=== PATIENT | female | born 1950 | race Caucasian/White ===

== ENCOUNTER 2020-08-12 14:00 | Outpatient (REF) | payer MEDICARE, SELFPAY | END 2020-08-12 14:01 | disposition home or self-care (01) | LOC: HO.LNP 14:00 | PROVIDERS: Visit Provider Hospitalist | DX: N39.0 Urinary tract infection, site not specified (principal) | CPT/HCPCS: 87086 ==

== ENCOUNTER 2020-08-31 | Outpatient (REF) | payer MEDICARE, SELFPAY ==
[2020-09-01 12:39] LABS: Glucose Urine UA 100 MG/DL (NEG); Leukocyte Esterase Urine TRACE (NEG); Specific Gravity - Urine 1.025 (1.005-1.025); Urine Blood NEG (NEG); Urine Ketones NEG (NEG); Urine Protein 1+ MG/DL (NEG-TRACE)
[2020-09-01 12:40] LABS: Color Urine ORANGE
[2020-09-01 12:41] LABS: Appearance Urine HAZY
[2020-09-01 12:50] LABS: Calcium Oxalate Crystals Urine 2+ /LPF; Mucus Urine 1+ /LPF; RBC Urine 0 /HPF (0); Renal Epithelial Cells Urine 1+ /LPF; Squamous Epithelial Cell Urine 3+ /LPF
== END 2020-08-31 00:01 | disposition home or self-care (01) ==
LOC: HO.LNP
PROVIDERS: Visit Provider Nurse Practitioner Family
DX: Z13.9 Encounter for screening, unspecified (principal); N39.0 Urinary tract infection, site not specified
CPT/HCPCS: 81001; 87086; 87088; 87186

== ENCOUNTER 2020-09-07 18:32 | Emergency (ER) | payer MEDICARE, SELFPAY ==
[2020-09-07 18:44] VITALS: BP 143/72; PULSE 80; RESP 18; TEMP 36.6; O2SAT 97; BMI 31.3
[2020-09-07 20:17] LABS: Glucose Urine UA NEG (NEG); Leukocyte Esterase Urine TRACE (NEG); Nitrite Urine NEG (NEG); Specific Gravity - Urine 1.025 (1.005-1.025); Urine Blood NEG (NEG); Urine Ketones NEG (NEG); Urine Protein NEG (NEG-TRACE)
[2020-09-07 20:23] LABS: Appearance Urine CLEAR; Color Urine YELLOW
[2020-09-07 20:41] LABS: RBC Urine 0 /HPF (0); Squamous Epithelial Cell Urine TRACE /LPF
[2020-09-07] MEDS: Acetaminophen 325 MG TABLET 650 MG PO (20:53)
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
== END 2020-09-07 21:10 | disposition home or self-care (01) ==
PROVIDERS: Nurse Practitioner Primary Care; Emergency Provider Emergency Medicine; PCP Physician Assistant
DX: S00.03XA Contusion of scalp, initial encounter (principal); N39.0 Urinary tract infection, site not specified; I10 Essential (primary) hypertension; X58.XXXA Exposure to other specified factors, initial encounter; Y93.9 Activity, unspecified; Y92.9 Unspecified place or not applicable; Y99.9 Unspecified external cause status; Y04.8XXA Assault by other bodily force, initial encounter; Y92.410 Unspecified street and highway as the place of occurrence of the external cause; Z79.899 Other long term (current) drug therapy
CPT/HCPCS: 81001; 87086; 99283; 99284

== ENCOUNTER 2020-09-08 09:58 | Emergency (ER) | payer MEDICARE, SELFPAY ==
[2020-09-08 10:08] VITALS: BP 137/59; PULSE 69; RESP 16; TEMP 36.3; O2SAT 97; BMI 31.3
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
== END 2020-09-08 11:40 | disposition home or self-care (01) ==
PROVIDERS: Emergency Provider Emergency Medicine Emergency Medical Services
DX: S60.222A Contusion of left hand, initial encounter (principal); S00.03XA Contusion of scalp, initial encounter; G44.309 Post-traumatic headache, unspecified, not intractable; H92.02 Otalgia, left ear; M79.642 Pain in left hand; I10 Essential (primary) hypertension; Y04.8XXA Assault by other bodily force, initial encounter; Y93.9 Activity, unspecified; Y92.9 Unspecified place or not applicable; Y99.9 Unspecified external cause status; Z79.899 Other long term (current) drug therapy
CPT/HCPCS: 70450; 73120; 99283; 99284

== ENCOUNTER 2020-09-12 08:28 | Outpatient (REF) | payer MEDICARE, SELFPAY ==
[2020-09-14 11:35] LABS: BV Int Neg Control Negative (Negative); BV Int Pos Control Positive (Positive)
== END 2020-09-12 08:29 | disposition home or self-care (01) ==
LOC: HO.LAB 08:28
PROVIDERS: Visit Provider Nurse Practitioner Family
DX: Z13.9 Encounter for screening, unspecified (principal); R30.0 Dysuria; B37.3 Candidiasis of vulva and vagina
CPT/HCPCS: 87480; 87510; 87660

== ENCOUNTER 2020-09-13 11:06 | Outpatient (REF) | payer MEDICARE, SELFPAY | END 2020-09-13 11:07 | disposition home or self-care (01) | LOC: HO.LAB 11:06 | PROVIDERS: Visit Provider Nurse Practitioner Family | DX: Z13.89 Encounter for screening for other disorder (principal) ==

== ENCOUNTER 2020-09-27 10:36 | Outpatient (REF) | payer MEDICARE, SELFPAY ==
[2020-09-27 12:16] LABS: MANUAL DIFF FLAG NO
[2020-09-27 12:19] LABS: Basophils Percent Auto 0.4 % (0-2); Eosinophils Absolute Auto 0.6 X10*3/uL (0.0-0.4); Eosinophils Percent Auto 7.3 % (0-4); Hematocrit 35.5 % (37-47); Hemoglobin 11.2 g/dl (12.0-16.0); Imm Gran Abs Auto 0.03 X10*3/uL (0.00-0.03); Imm Gran Pct Auto 0.4 % (0.0-0.4); Lymphocytes Absolute Auto 2.5 X10*3/uL (1.2-4.9); Lymphocytes Percent Auto 32.5 % (20-40); Mean Corpuscular HGB Conc 31.5 g/dl (31.0-35.0); Mean Corpuscular Hemoglobin 27.1 pg (27.0-33.0); Mean Corpuscular Volume 85.7 fL (80-98); Mean Platelet Volume 10.9 fL (9.4-12.3); Monocytes Absolute Auto 0.4 X10*3/uL (0.1-1.2); Monocytes Percent Auto 5.2 % (2-11); Neutrophils Absolute Auto 4.2 X10*3/uL (2.0-8.3); Neutrophils Percent Auto 54.2 % (45-73); Platelet Count 202 X10*3/uL (160-400); Red Blood Count 4.14 X10*6/uL (4.20-5.50); Red Cell Distribution Width 13.9 % (11.0-16.0); White Blood Count 7.7 X10*3/uL (4.8-10.8)
[2020-09-27 12:52] LABS: Alanine Aminotransferase 10 U/L (0-31); Albumin Level 3.9 g/dL (3.5-5.0); Alkaline Phosphatase 61 U/L (39-117); Anion Gap 11 (12-20); Aspartate Amino Transferase 23 U/L (5-31); Bilirubin Total 0.4 mg/dL (0.0-1.0); Blood Urea Nitrogen 12 mg/dL (9-16); Carbon Dioxide 26 mmol/L (22-29); Chloride 108 mmol/L (96-108); Cholesterol 153 mg/dL; Estimated Glomerular Filt Rate > 60; Glucose Fasting 118 mg/dL (60-99); HDL Cholesterol 47 mg/dL; LDL Cholesterol Calculated 80 mg/dl; Potassium 4.4 mmol/l (3.3-5.1); Sodium 141 mmol/L (135-145); Total Protein 6.5 g/dL (6.5-8.0); Triglycerides 132 mg/dL
[2020-09-27 12:55] LABS: Estimated Average Glucose 157 mg/dL; Hemoglobin A1c % 7.1 %
[2020-09-27 13:13] LABS: TSH reflex Free T4 1.78 mIU/mL (0.32-4.0)
== END 2020-09-27 10:37 | disposition home or self-care (01) ==
LOC: HO.LAB 10:36
PROVIDERS: PCP Physician Assistant; Visit Provider Physician Assistant
DX: E11.9 Type 2 diabetes mellitus without complications (principal); E78.00 Pure hypercholesterolemia, unspecified; E78.5 Hyperlipidemia, unspecified; R30.0 Dysuria
CPT/HCPCS: 36415; 80053; 80061; 83036; 84443; 85025

== ENCOUNTER 2020-09-28 14:10 | Outpatient (REF) | payer MEDICARE, SELFPAY ==
[2020-09-28 14:22] LABS: Glucose Urine UA 100 MG/DL (NEG); Leukocyte Esterase Urine NEG (NEG); Specific Gravity - Urine 1.015 (1.005-1.025); Urine Blood NEG (NEG); Urine Ketones NEG (NEG); Urine Protein TRACE MG/DL (NEG-TRACE)
[2020-09-28 14:25] LABS: Appearance Urine HAZY; Color Urine ORANGE
[2020-09-28 14:43] LABS: RBC Urine 0 /HPF (0); Squamous Epithelial Cell Urine 1+ /LPF; WBC Urine 0 /HPF (0-4)
[2020-09-28 14:55] LABS: Creatinine Urine 68.37 mg/dL; Microalbum/Creatinine Ratio Ur 8.7 ug/mg cr
== END 2020-09-28 14:11 | disposition home or self-care (01) ==
LOC: HO.LNP 14:10
PROVIDERS: Visit Provider Physician Assistant
DX: E11.9 Type 2 diabetes mellitus without complications (principal)
CPT/HCPCS: 81003; 82043

== ENCOUNTER 2020-09-30 15:38 | Outpatient (REF) | payer MEDICARE, SELFPAY | END 2020-09-30 15:39 | disposition home or self-care (01) | LOC: HO.LNP 15:38 | PROVIDERS: Visit Provider Hospitalist | DX: R30.0 Dysuria (principal) | CPT/HCPCS: 87086; 87088; 87186 ==

== ENCOUNTER 2020-11-18 12:54 | Outpatient (REF) | payer MEDICARE, SELFPAY | END 2020-11-18 12:55 | disposition home or self-care (01) | LOC: HO.LAB 12:54 | PROVIDERS: Visit Provider Nurse Practitioner Family | DX: N39.0 Urinary tract infection, site not specified (principal) | CPT/HCPCS: 87086; 87088; 87186 ==

== ENCOUNTER 2020-11-22 12:45 | Emergency (ER) | payer MEDICARE, SELFPAY ==
--- NOTE | ~2020-11-22 | XR_ITS ---
EXAMINATION: XR CHEST CLINICAL INFORMATION: Lightheaded COMPARISON: None TECHNIQUE: Portable upright AP view of the chest was obtained. FINDINGS: The heart is within limits of normal size and similar to prior studies. The vascularity is normal. There is tapering at the cardiac apex and right cardiophrenic angle consistent with incidental areolar tissue. The lungs are clear. There is no airspace consolidation, vascular congestion, groundglass opacity, or effusion. The hilar and mediastinal contours are unremarkable. There are multilevel degenerative changes thoracic spine. XR/XR chest 1V IMPRESSION: No acute intrathoracic disease.
--- NOTE | ~2020-11-22 | CT_ITS ---
EXAMINATION: CT HEAD WITHOUT CONTRAST CLINICAL INFORMATION: Lightheadedness, dizziness and off balance COMPARISON: None TECHNIQUE: Contiguous axial imaging was performed from the skull base to vertex without intravenous administration of contrast. This CT examination was performed using dose optimization techniques as appropriate, variously including the following: *Automated exposure control *Adjustment of mA and/or kV according to patient size (this includes techniques or standardized protocols for targeted exams where dose is matched to indication/reason for exam; i.e. extremities or head) *Use of iterative reconstruction technique DLP: 611 mGy-cm FINDINGS: There is no evidence of acute intracranial hemorrhage or territorial infarction. No abnormal mass effect or midline shift is seen. Shine to white matter differentiation is well preserved. No extra-axial fluid collections are identified. The ventricles are normal in size. There is no abnormal attenuation within the brain parenchyma. The osseous structures and soft tissues are normal. The mastoid air cells and visualized portions of the paranasal sinuses are well aerated. CT/CT head/brain wo con IMPRESSION: No acute intracranial process seen.
[2020-11-22 12:54] VITALS: BP 198/85; PULSE 77; RESP 18; TEMP 36.6; O2SAT 98; BMI 30.8
--- NOTE | 2020-11-22 15:04 | ED.DIZZY ---
HPI - Dizziness General Chief Complaint: Dizziness Stated Complaint: LIGHT HEADNESS Time Seen by Provider: 11/22/20 15:03 Source: patient Mode of arrival: ambulatory History of Present Illness HPI Narrative: 70 y/o female with history of HTN, CAD, hx NSTEMI in 2015, hx SVT, hypothyroidism, carpal tunnel syndrome, recent UTI currently on Levaquin which is Culture sensitive, presenting to the ED complaining of generalized fatigue/weakness, feeling off balance, and mild head pressure since this morning. Admits sx have been improving since onset but wanted to get checked out. Also reports tingling in left arm, and nausea. Denies chest pain, shortness of breath, vomiting, diarrhea, abdominal pain, numbness, visual change/loss, flank pain, abdominal pain Related Data Home Medications Medication Instructions Recorded Confirmed estradiol 0.5 mg tablet 0.5 mg PO DAILY 08/12/20 09/30/20 flu vacc [id number](65yr up)-PF 240 ml IM 08/12/20 09/30/20 mcg/0.7 mL intramuscular syringe levothyroxine 50 mcg tablet 50 mcg PO QAM 08/12/20 09/30/20 lisinopril 2.5 mg tablet 2.5 mg PO DAILY 08/12/20 09/30/20 lorazepam 0.5 mg tablet 0.5 mg PO DAILY PRN 08/12/20 09/30/20 metformin 500 mg tablet,extended 1,000 mg PO BID 08/12/20 09/30/20 release 24 hr methocarbamol 500 mg tablet 500 mg PO BEDTIME 08/12/20 09/30/20 omeprazole 20 mg capsule,delayed 20 mg PO DAILY 08/12/20 09/30/20 release simvastatin 40 mg tablet 40 mg PO BEDTIME 08/12/20 09/30/20 triamcinolone acetonide 0.1 % applic TOPICAL DAILY 08/12/20 09/30/20 topical cream valacyclovir 1 gram tablet mg PO 08/12/20 09/30/20 tramadol 50 mg tablet 50 mg PO DAILY 10/20/20 Previous Rx's Medication Instructions Recorded amoxicillin 875 mg-potassium 1 tab PO BID 5 Days #10 tab 08/25/20 clavulanate 125 mg tablet nitrofurantoin 100 mg PO Q12H 7 Days #14 cap 11/18/20 monohydrate/macrocrystals 100 mg capsule glipizide 2.5 mg tablet, extended 2.5 mg PO DAILY #90 tab 09/12/20 release 24 hr levofloxacin 500 mg tablet 500 mg PO DAILY 3 Days #3 tab 09/12/20 naproxen 500 mg tablet 500 mg PO BID PRN #60 tab 09/12/20 atenolol 25 mg tablet 12.5 mg PO DAILY 30 Days #15 tab 09/14/20 clotrimazole 1 % vaginal cream 1 appful VAGINAL BEDTIME 7 Days 09/14/20 #45 g fluconazole 150 mg tablet 150 mg PO Q3D #2 tab 09/15/20 azithromycin 500 mg tablet 500 mg PO DAILY 3 Days #3 tab 09/30/20 fluconazole 150 mg tablet 150 mg PO DAILY 3 Days #3 tab 09/30/20 tramadol 50 mg tablet 50 mg PO DAILY PRN 10 Days #10 tab 10/20/20 levofloxacin 500 mg tablet 500 mg PO DAILY 5 Days #5 tab 10/24/20 levofloxacin 750 mg tablet 750 mg PO DAILY #5 tab 11/18/20 Allergies Allergy/AdvReac Type Severity Reaction Status Date / Time cefuroxime [From CEFTIN] Allergy Intermediate RASH Verified 09/30/20 11:57 doxycycline [DOXYCYCLINE] Allergy Unknown HIVES Verified 09/30/20 11:57 Sulfa (Sulfonamide Allergy Unknown rash Verified 09/30/20 11:57 Antibiotics) Celfain Allergy Unknown rash Uncoded 09/30/20 11:57 Review of Systems Review of Systems: Constitutional: No Weight loss, No Fever, No Chills, + Fatigue, No Malaise ENT/Mouth: No Hearing loss, No Ear Pain, No sore throat, No Rhinorrhea Eyes: No Eye Pain, No Swelling, No Vision Changes Cardiovascular: No Chest Pain, No SOB, No Edema, No Palpitations Respiratory: No Cough, No Sputum, No Wheezing Gastrointestinal: + Nausea, No Vomiting, No Diarrhea, No Constipation, No Abdominal pain Genitourinary: No Dysuria, No Urinary Frequency, No Hematuria, No Flank Pain Musculoskeletal: No joint pain, + Myalgias, No Joint Swelling Skin: No Skin Lesions, No rash Neuro: + Weakness, No Numbness, No Paresthesias, No Loss of Consciousness, +lightheadedness/ Dizziness,+ Headache Yes all other systems are reviewed and are negative Neurologic: Denies Abnormal speech present [facility] Past Medical History Attestation statement: The following information was validated with the patient. Medical History Cardiac arrhythmia Diabetes HTN (hypertension) Surgical History H/O: hysterectomy History of cardiac radiofrequency ablation Family History Family History Father CVD (cardiovascular disease) Mother No problems noted. Social History Social History Alcohol intake: never Smoking Status: Never smoker Use of substances other than those prescribed or required for medical reasons: No Advance Directives: No Advance Directives Information Provided: No Physical Exam Vital Signs: Vital Signs: Last Vital Signs Temp 98.1 F 11/22/20 18:29 Pulse 68 11/22/20 18:29 Resp 16 11/22/20 18:29 BP 136/69 11/22/20 18:29 Pulse Ox 95 11/22/20 18:29 Body Mass Index 30.8 Const: General: cooperative, healthy appearing, no acute distress and well developed Orientation/consciousness: patient oriented x3 Limitations: no limitations HENMT: Head: Yes normal to inspection Ears: hearing grossly normal bilaterally General nose exam: Normal external nose present Face and sinus: Yes normal facial exam Mouth: Normal oral and palatal mucosa present Eyes: General: appearance normal, both eyes and all related structures EOM: EOMs intact bilaterally Neck: Neck: Yes normal visual inspection, Yes no lymphadenopathy and Yes no meningeal signs Resp: Effort & Inspection: normal respiratory effort Auscultation: clear to auscultation bilaterally, no rales, no rhonchi and no wheezes Cardio: Rate: regular rate Heart sounds: S1 normal heart sound present and S2 normal heart sound present GI: Inspection: Yes normal to inspection Palpation (GI): Soft to palpation, nontender, no guarding and not rigid : General: Yes no CVA tenderness Back/Spine/Pelvis: Back: no CVA tenderness Skin: Rashes: no rashes Wounds: no wounds Neuro: General: patient oriented x3, gait normal, tone normal, moves all extremities, no meningeal signs, no focal motor deficits and CN's II-XI intact bilaterally Cognition (Neuro): normal cognition Speech: No Abnormal speech present Gait exam (Neuro): Normal gait present Motor exam (neuro): 5/5 motor strength present throughout and Pronator motor function not present Coordination: [id number] test normal and Romberg test negative Extrem: General: Yes normal to inspection Course Course Course Narrative: -labs including initial troponin negative. CXR unremarkable. Head CT unremarkable. -UA negative, orthostatic VS negative - 2009--repeat troponin equivocal, CT unlikely. Results discussed with patient including worrisome signs and symptoms and strict return precautions. Patient verbalized understanding of feel safe for discharge home to follow-up with PCP MDM - Dizziness MDM Narrative Medical decision making narrative: 70 y/o female with history of HTN, CAD, hx NSTEMI in 2015, hx SVT, hypothyroidism, carpal tunnel syndrome, recent UTI currently on Levaquin which is Culture sensitive, presenting to the ED complaining of generalized fatigue/weakness, feeling off balance, and mild head pressure since this morning. Also reports tingling in left arm, and nausea. On exam VSS, NAD, well appearing, no focal deficits, ambulating w/steady gait. Concern for metabolic abnls vs dehydation vs ACS. Low concern for TIA/CVA/CVT or PE. Low concern for continued UTI or pyelo or sepsis w/Levaquin Cx sensative Plan: EKG, labs, UA, CXR, Head CT, Orthoststics, Sx Tx, Reassess Lab Data Result diagrams: 11/22/20 15:59 11/22/20 15:58 Labs: Lab Results 11/22/20 11/22/20 11/22/20 Range/Units 15:51 15:58 15:58 WBC (4.8-10.8) X10*3/uL RBC (4.20-5.50) X10*6/uL Hgb (12.0-16.0) g/dl Hct (37-47) % MCV (80-98) fL MCH (27.0-33.0) pg MCHC (31.0-35.0) g/dl RDW (11.0-16.0) % Plt Count (160-400) X10*3/uL MPV (9.4-12.3) fL Immature Gran % (Auto) (0.0-0.4) % Neut % (Auto) (45-73) % Lymph % (Auto) (20-40) % Imperial % (Auto) (2-11) % Eos % (Auto) (0-4) % Baso % (Auto) (0-2) % Lymph # (Auto) (1.2-4.9) X10*3/uL Imperial # (Auto) (0.1-1.2) X10*3/uL Eos # (Auto) (0.0-0.4) X10*3/uL Baso # (Auto) (0.0-0.2) X10*3/uL Abs Immat Gran (auto) (0.00-0.03) X10*3/uL Absolute Neuts (auto) (2.0-8.3) X10*3/uL Absolute Nucleated RBC (0.0-0.012) X10*3/uL Nucleated RBC % (auto) (0.0-0.2) /100WBC PT (10.8-13.0) SEC INR (0.9-1.1) APTT (24.1-38.0) SEC Sodium 143 (135-145) mmol/L Potassium 4.1 (3.3-5.1) mmol/L Chloride 106 (96-108) mmol/L Carbon Dioxide 26 (22-29) mmol/L Anion Gap 15 (12-20) BUN 8 L (9-16) mg/dL Creatinine 0.87 (0.5-1.4) mg/dL Estim Creat Clear Calc 59.0 Estimated GFR > 60 Random Glucose 118 H (60-115) mg/dL Calcium 9.9 D (8.4-10.2) mg/dL Magnesium 2.1 (1.6-2.6) mg/dL Total Bilirubin 0.5 (0.0-1.0) mg/dL Direct Bilirubin 0.3 (0.0-0.5) mg/dL AST 27 (5-31) U/L ALT 14 (0-31) U/L Alkaline Phosphatase 59 (39-117) U/L Troponin I High Sens < 3.5 (<3.5-17.0) ng/L Total Protein 7.2 (6.5-8.0) g/dL Albumin 4.3 (3.5-5.0) g/dL TSH 1.75 (0.32-4.0) uIU/mL Urine Color YELLOW Urine Appearance CLEAR Urine pH 7.5 (5.0-8.0) Ur Specific Mobile 1.010 (1.005-1.025) Urine Protein NEG (NEG-TRACE) MG/DL Urine Glucose (UA) NEG (NEG) MG/DL Urine Ketones NEG (NEG) MG/DL Urine Blood NEG (NEG) Urine Nitrite NEG (NEG) Ur Leukocyte Esterase NEG (NEG) COVID-19 (ARVIN) (Negative) COVID-19 Clin Com 11/22/20 11/22/20 11/22/20 Range/Units 15:58 15:59 15:59 WBC 9.5 (4.8-10.8) X10*3/uL RBC 4.58 (4.20-5.50) X10*6/uL Hgb 12.4 (12.0-16.0) g/dl Hct 38.7 (37-47) % MCV 84.5 (80-98) fL MCH 27.1 (27.0-33.0) pg MCHC 32.0 (31.0-35.0) g/dl RDW 13.0 (11.0-16.0) % Plt Count 218 (160-400) X10*3/uL MPV 10.5 (9.4-12.3) fL Immature Gran % (Auto) 0.2 (0.0-0.4) % Neut % (Auto) 63.0 (45-73) % Lymph % (Auto) 28.2 (20-40) % Imperial % (Auto) 5.7 (2-11) % Eos % (Auto) 2.7 (0-4) % Baso % (Auto) 0.2 (0-2) % Lymph # (Auto) 2.7 (1.2-4.9) X10*3/uL Imperial # (Auto) 0.5 (0.1-1.2) X10*3/uL Eos # (Auto) 0.3 (0.0-0.4) X10*3/uL Baso # (Auto) 0.0 (0.0-0.2) X10*3/uL Abs Immat Gran (auto) 0.02 (0.00-0.03) X10*3/uL Absolute Neuts (auto) 6.0 (2.0-8.3) X10*3/uL Absolute Nucleated RBC 0.000 (0.0-0.012) X10*3/uL Nucleated RBC % (auto) 0.0 (0.0-0.2) /100WBC PT (10.8-13.0) SEC INR (0.9-1.1) APTT (24.1-38.0) SEC Sodium (135-145) mmol/L Potassium (3.3-5.1) mmol/L Chloride (96-108) mmol/L Carbon Dioxide (22-29) mmol/L Anion Gap (12-20) BUN (9-16) mg/dL Creatinine (0.5-1.4) mg/dL Estim Creat Clear Calc Estimated GFR Random Glucose (60-115) mg/dL Calcium (8.4-10.2) mg/dL Magnesium (1.6-2.6) mg/dL Total Bilirubin (0.0-1.0) mg/dL Direct Bilirubin (0.0-0.5) mg/dL AST (5-31) U/L ALT (0-31) U/L Alkaline Phosphatase (39-117) U/L Troponin I High Sens Cancelled (<3.5-17.0) ng/L Total Protein (6.5-8.0) g/dL Albumin (3.5-5.0) g/dL TSH (0.32-4.0) uIU/mL Urine Color Urine Appearance Urine pH (5.0-8.0) Ur Specific Mobile (1.005-1.025) Urine Protein (NEG-TRACE) MG/DL Urine Glucose (UA) (NEG) MG/DL Urine Ketones (NEG) MG/DL Urine Blood (NEG) Urine Nitrite (NEG) Ur Leukocyte Esterase (NEG) COVID-19 (ARVIN) Negative (Negative) COVID-19 Clin Com See Note 11/22/20 11/22/20 Range/Units 16:00 19:29 WBC (4.8-10.8) X10*3/uL RBC (4.20-5.50) X10*6/uL Hgb (12.0-16.0) g/dl Hct (37-47) % MCV (80-98) fL MCH (27.0-33.0) pg MCHC (31.0-35.0) g/dl RDW (11.0-16.0) % Plt Count (160-400) X10*3/uL MPV (9.4-12.3) fL Immature Gran % (Auto) (0.0-0.4) % Neut % (Auto) (45-73) % Lymph % (Auto) (20-40) % Imperial % (Auto) (2-11) % Eos % (Auto) (0-4) % Baso % (Auto) (0-2) % Lymph # (Auto) (1.2-4.9) X10*3/uL Imperial # (Auto) (0.1-1.2) X10*3/uL Eos # (Auto) (0.0-0.4) X10*3/uL Baso # (Auto) (0.0-0.2) X10*3/uL Abs Immat Gran (auto) (0.00-0.03) X10*3/uL Absolute Neuts (auto) (2.0-8.3) X10*3/uL Absolute Nucleated RBC (0.0-0.012) X10*3/uL Nucleated RBC % (auto) (0.0-0.2) /100WBC PT 14.8 H (10.8-13.0) SEC INR 1.2 H (0.9-1.1) APTT 40.6 H (24.1-38.0) SEC Sodium (135-145) mmol/L Potassium (3.3-5.1) mmol/L Chloride (96-108) mmol/L Carbon Dioxide (22-29) mmol/L Anion Gap (12-20) BUN (9-16) mg/dL Creatinine (0.5-1.4) mg/dL Estim Creat Clear Calc Estimated GFR Random Glucose (60-115) mg/dL Calcium (8.4-10.2) mg/dL Magnesium (1.6-2.6) mg/dL Total Bilirubin (0.0-1.0) mg/dL Direct Bilirubin (0.0-0.5) mg/dL AST (5-31) U/L ALT (0-31) U/L Alkaline Phosphatase (39-117) U/L Troponin I High Sens < 3.5 (<3.5-17.0) ng/L Total Protein (6.5-8.0) g/dL Albumin (3.5-5.0) g/dL TSH (0.32-4.0) uIU/mL Urine Color Urine Appearance Urine pH (5.0-8.0) Ur Specific Mobile (1.005-1.025) Urine Protein (NEG-TRACE) MG/DL Urine Glucose (UA) (NEG) MG/DL Urine Ketones (NEG) MG/DL Urine Blood (NEG) Urine Nitrite (NEG) Ur Leukocyte Esterase (NEG) COVID-19 (ARVIN) (Negative) COVID-19 Clin Com Discharge Plan Discharge Clinical Impression: Weakness, Headache Patient Disposition: Home, Self-Care Instructions: Weakness (ED) Additional Instructions: Your blood work and imaging studies were reassuring today in the ED Continue taking previously prescribed antibiotic until completion Follow-up with your primary care doctor Make sure you are staying hydrated at home If her symptoms persist or worsen, he developed chest pain, shortness of breath, constant worsening headache, feel off balance again return to the ED immediately Prescriptions: No Action amoxicillin-pot clavulanate [Augmentin] 875-125 mg tablet 1 tab PO BID 5 Days Qty: 10 RF: 0 glipizide 2.5 mg tablet extended release 24hr 2.5 mg PO DAILY Qty: 90 RF: 0 atenolol 25 mg tablet 12.5 mg PO DAILY 30 Days Qty: 15 RF: 3 clotrimazole 1 % cream 1 appful vaginal BEDTIME 7 Days Qty: 45 RF: 0 fluconazole [Diflucan] 150 mg tablet 150 mg PO Q3D Qty: 2 RF: 0 tramadol 50 mg tablet 50 mg PO DAILY RF: 0 tramadol 50 mg tablet 50 mg PO DAILY PRN (Reason: pain) 10 Days Qty: 10 RF: 1 levofloxacin 500 mg tablet 500 mg PO DAILY 5 Days Qty: 5 RF: 0 levofloxacin 750 mg tablet 750 mg PO DAILY Qty: 5 RF: 0 nitrofurantoin monohyd/m-cryst [Macrobid] 100 mg capsule 100 mg PO Q12H 7 Days Qty: 14 RF: 0 levofloxacin 500 mg tablet 500 mg PO DAILY 3 Days Qty: 3 RF: 0 naproxen 500 mg tablet 500 mg PO BID PRN (Reason: pain) Qty: 60 RF: 0 fluconazole 150 mg tablet 150 mg PO DAILY 3 Days Qty: 3 RF: 0 azithromycin 500 mg tablet 500 mg PO DAILY 3 Days Qty: 3 RF: 0 metformin 500 mg tablet extended release 24 hr 1,000 mg PO BID RF: 0 omeprazole 20 mg capsule,delayed release(DR/EC) 20 mg PO DAILY RF: 0 estradiol 0.5 mg tablet 0.5 mg PO DAILY RF: 0 levothyroxine 50 mcg tablet 50 mcg PO QAM RF: 0 Fluzone HighDose Quad 20-21 PF 240 mcg/0.7 mL syringe IM RF: 0 lorazepam 0.5 mg tablet 0.5 mg PO DAILY PRNRF: 0 triamcinolone acetonide 0.1 % cream topical DAILY RF: 0 methocarbamol 500 mg tablet 500 mg PO BEDTIME RF: 0 lisinopril 2.5 mg tablet 2.5 mg PO DAILY RF: 0 simvastatin 40 mg tablet 40 mg PO BEDTIME RF: 0 valacyclovir 1 gram tablet PO RF: 0 Referrals: Sammy Cordova PA-C [Primary Care Provider] - 2 days
[2020-11-22 15:16] VITALS: BP 175/82; PULSE 66; RESP 19; TEMP 36.6; O2SAT 96
--- NOTE | 2020-11-22 15:26 | ECG_ITS ---
Test Reason : HEDACHE Blood Pressure : / mmHG Vent. Rate : 061 BPM Atrial Rate : 061 BPM P-R Int : 182 ms QRS Dur : 080 ms QT Int : 422 ms P-R-T Axes : 053 032 041 degrees QTc Int : 424 ms Normal sinus rhythm Normal ECG When compared with ECG of 21-SEP-2015 16:22, No significant change was found Referred By: Samaria Stewart Electronically Signed By:ELY BENJAMIN
[2020-11-22 15:28] VITALS: BP 175/82; PULSE 65; RESP 18; TEMP 36.3; O2SAT 96
[2020-11-22 16:11] LABS: MANUAL DIFF FLAG NO
[2020-11-22 16:12] LABS: Basophils Percent Auto 0.2 % (0-2); Eosinophils Absolute Auto 0.3 X10*3/uL (0.0-0.4); Eosinophils Percent Auto 2.7 % (0-4); Hematocrit 38.7 % (37-47); Hemoglobin 12.4 g/dl (12.0-16.0); Imm Gran Abs Auto 0.02 X10*3/uL (0.00-0.03); Imm Gran Pct Auto 0.2 % (0.0-0.4); Lymphocytes Absolute Auto 2.7 X10*3/uL (1.2-4.9); Lymphocytes Percent Auto 28.2 % (20-40); Mean Corpuscular Hemoglobin 27.1 pg (27.0-33.0); Mean Corpuscular Volume 84.5 fL (80-98); Mean Platelet Volume 10.5 fL (9.4-12.3); Monocytes Absolute Auto 0.5 X10*3/uL (0.1-1.2); Monocytes Percent Auto 5.7 % (2-11); Platelet Count 218 X10*3/uL (160-400); Red Blood Count 4.58 X10*6/uL (4.20-5.50); White Blood Count 9.5 X10*3/uL (4.8-10.8)
[2020-11-22 16:15] LABS: Appearance Urine CLEAR; Color Urine YELLOW; Glucose Urine UA NEG (NEG); Leukocyte Esterase Urine NEG (NEG); Nitrite Urine NEG (NEG); PH 7.5 (5.0-8.0); Urine Blood NEG (NEG); Urine Ketones NEG (NEG); Urine Protein NEG (NEG-TRACE)
[2020-11-22 16:18] LABS: INTERNATIONAL NORM RATIO 1.2 (0.9-1.1); Prothrombin Time 14.8 SEC (10.8-13.0)
[2020-11-22 16:20] LABS: Partial Thromboplastin Time 40.6 SEC (24.1-38.0)
[2020-11-22 16:28] LABS: COVID-19 Test Negative (Negative)
[2020-11-22 16:36] LABS: Alanine Aminotransferase 14 U/L (0-31); Albumin Level 4.3 g/dL (3.5-5.0); Alkaline Phosphatase 59 U/L (39-117); Anion Gap 15 (12-20); Aspartate Amino Transferase 27 U/L (5-31); Bilirubin Direct 0.3 mg/dL (0.0-0.5); Bilirubin Total 0.5 mg/dL (0.0-1.0); Blood Urea Nitrogen 8 mg/dL (9-16); Calcium 9.9 mg/dL (8.4-10.2); Carbon Dioxide 26 mmol/L (22-29); Chloride 106 mmol/L (96-108); Estimated Glomerular Filt Rate > 60; Glucose Random 118 mg/dL (60-115); Magnesium 2.1 mg/dL (1.6-2.6); Potassium 4.1 mmol/L (3.3-5.1); Sodium 143 mmol/L (135-145); Total Protein 7.2 g/dL (6.5-8.0)
[2020-11-22 16:41] LABS: Troponin-I High Sensitivity < 3.5 ng/L (<3.5-17.0)
[2020-11-22] MEDS: 0.9 % Sodium Chloride 1,000 ML 999 ML IVCONT (16:44)
[2020-11-22] MEDS: Meclizine HCl 25 MG TABLET PO (16:44)
[2020-11-22 16:55] LABS: TSH reflex Free T4 1.75 uIU/mL (0.32-4.0)
[2020-11-22 17:02] VITALS: BP 148/62; PULSE 67; PULSE 68; RESP 18; TEMP 36.8; O2SAT 96
[2020-11-22 17:03] VITALS: BP 148/62; BP 184/100; PULSE 64; PULSE 68; RESP 18; TEMP 36.8; O2SAT 96
[2020-11-22] MEDS: LORazepam 0.5 MG TABLET PO (17:04)
[2020-11-22] MEDS: Acetaminophen 325 MG TABLET 650 MG PO (17:04)
[2020-11-22 18:29] VITALS: BP 136/69; PULSE 68; RESP 16; TEMP 36.7; O2SAT 95
[2020-11-22 20:06] LABS: Troponin-I High Sensitivity < 3.5 ng/L (<3.5-17.0)
== END 2020-11-22 20:59 | disposition home or self-care (01) ==
PROVIDERS: Physician Assistant; Emergency Provider Emergency Medicine; PCP Physician Assistant
DX: R42 Dizziness and giddiness (principal); R51.9 Headache, unspecified; Z79.01 Long term (current) use of anticoagulants; Z79.899 Other long term (current) drug therapy; Z20.822 Contact with and (suspected) exposure to COVID-19
CPT/HCPCS: 36415; 70450; 71045; 80048; 80076; 81003; 83735; 84443; 84484; 85025; 85610; 85730; 87635; 93005; 96360; 99284

== ENCOUNTER → 2020-11-30 10:41 | Outpatient (BNVA) | payer MEDICARE, SELFPAY | PROVIDERS: PCP Physician Assistant; Visit Provider Nurse Practitioner Family | DX: R07.9 Chest pain, unspecified (principal); E78.5 Hyperlipidemia, unspecified; E11.9 Type 2 diabetes mellitus without complications; I10 Essential (primary) hypertension; I49.9 Cardiac arrhythmia, unspecified | CPT/HCPCS: 99212 ==

== ENCOUNTER 2020-12-02 10:01 | Outpatient (REF) | payer MEDICARE, SELFPAY ==
[2020-12-02 10:39] LABS: Hematocrit 36.9 % (37-47); Hemoglobin 11.9 g/dl (12.0-16.0); Mean Corpuscular HGB Conc 32.2 g/dl (31.0-35.0); Mean Corpuscular Hemoglobin 26.9 pg (27.0-33.0); Mean Corpuscular Volume 83.5 fL (80-98); Mean Platelet Volume 10.4 fL (9.4-12.3); Platelet Count 223 X10*3/uL (160-400); Red Blood Count 4.42 X10*6/uL (4.20-5.50); Red Cell Distribution Width 12.7 % (11.0-16.0); White Blood Count 9.2 X10*3/uL (4.8-10.8)
[2020-12-02 10:59] LABS: Estimated Average Glucose 140 mg/dL; Hemoglobin A1c % 6.5 %
[2020-12-02 11:06] LABS: Alanine Aminotransferase 19 U/L (0-31); Alkaline Phosphatase 74 U/L (39-117); Anion Gap 12 (12-20); Aspartate Amino Transferase 26 U/L (5-31); Bilirubin Total 0.5 mg/dL (0.0-1.0); Blood Urea Nitrogen 11 mg/dL (9-16); Calcium 9.4 mg/dL (8.4-10.2); Carbon Dioxide 28 mmol/L (22-29); Chloride 101 mmol/L (96-108); Cholesterol 147 mg/dL; Estimated Glomerular Filt Rate > 60; Glucose Fasting 150 mg/dL (60-99); HDL Cholesterol 43 mg/dL; LDL Cholesterol Calculated 77 mg/dl; Potassium 4.7 mmol/L (3.3-5.1); Sodium 136 mmol/L (135-145); Total Protein 6.6 g/dL (6.5-8.0); Triglycerides 139 mg/dL
[2020-12-02 11:36] LABS: Glucose Urine UA NEG (NEG); Leukocyte Esterase Urine TRACE (NEG); Nitrite Urine NEG (NEG); Specific Gravity - Urine 1.015 (1.005-1.025); UACC Culture Trigger YES; Urine Blood NEG (NEG); Urine Ketones NEG (NEG); Urine Protein NEG (NEG-TRACE)
[2020-12-02 11:40] LABS: Appearance Urine CLEAR; Color Urine YELLOW
[2020-12-02 12:07] LABS: Bacteria Urine TRACE /LPF; RBC Urine 0-2 /HPF (0); Squamous Epithelial Cell Urine 1+ /LPF
== END 2020-12-02 10:02 | disposition home or self-care (01) ==
LOC: HO.LAB 10:01
PROVIDERS: PCP Physician Assistant; Visit Provider Physician Assistant
DX: I10 Essential (primary) hypertension (principal); E11.65 Type 2 diabetes mellitus with hyperglycemia; R30.0 Dysuria; N39.0 Urinary tract infection, site not specified
CPT/HCPCS: 36415; 80053; 80061; 81001; 81003; 83036; 85027; 87086

== ENCOUNTER 2020-12-12 | Outpatient (REF) | payer MEDICARE, SELFPAY | END 2020-12-12 00:01 | disposition home or self-care (01) | LOC: HO.LNP | PROVIDERS: Visit Provider Hospitalist | DX: R35.0 Frequency of micturition (principal) | CPT/HCPCS: 87086 ==

== ENCOUNTER 2020-12-12 13:02 | Outpatient (REF) | payer MEDICARE, SELFPAY | END 2020-12-12 13:03 | disposition home or self-care (01) | LOC: HO.HMGCLDS 13:02 | PROVIDERS: PCP Physician Assistant; Visit Provider Internal Medicine | DX: Z20.822 Contact with and (suspected) exposure to COVID-19 (principal) | CPT/HCPCS: 36415; C9803; U0003; U0005 ==

== ENCOUNTER 2020-12-18 13:14 | Emergency (ER) | payer MEDICARE, SELFPAY ==
[2020-12-18 13:31] VITALS: BP 126/71; PULSE 79; RESP 20; TEMP 36.9; O2SAT 100; BMI 30.1
--- NOTE | 2020-12-18 14:04 | ED.ALLEREA ---
HPI - Allergic Reaction General Chief complaint: Allergic Reaction Stated complaint: MEDICATION REACTION Time Seen by Provider: 12/18/20 13:45 Source: patient Mode of arrival: ambulatory Limitations: no limitations History of Present Illness HPI narrative: 70 y/o female with multiple medical comorbidities presenting to the ED from home with complaints of itchy red rash to her bilateral lower arms that started last night. She states it started about 1 hour after she took Augmentin that was prescribed 2 days earlier for UTI. She states the rash is red and slightly raised and started on her right wrist; it spead to her forarms and hands. It is very itchy. She was up all night due to the itching. She took Benadryl at 4am with minimal improvement. She also reports her breathing is a little coarse and she was wheezy earlier. Her eyes are watery and itchy. She denies swelling in her throat, mouth, lips. She is not SOB or having any chest pain. She is allergic to doxycycline but has never had a reaction to penicillins before. MD complaint: allergic reaction Onset (ago): hour(s) (16) Exposure: medication Known history of allergy to: hx doxy allergy Symptoms: rash and itching Severity: moderate Treatment prior to arrival: benadryl Previous Allergic Reaction History: none Related Data Home Medications Medication Instructions Recorded Confirmed estradiol 0.5 mg tablet 0.5 mg PO DAILY 08/12/20 12/12/20 flu vacc [id number](65yr up)-PF 240 ml IM 08/12/20 12/01/20 mcg/0.7 mL intramuscular syringe levothyroxine 50 mcg tablet 50 mcg PO QAM 08/12/20 12/12/20 lisinopril 2.5 mg tablet 2.5 mg PO DAILY 08/12/20 12/12/20 methocarbamol 500 mg tablet 500 mg PO BEDTIME 08/12/20 12/12/20 omeprazole 20 mg capsule,delayed 20 mg PO DAILY 08/12/20 12/12/20 release simvastatin 40 mg tablet 40 mg PO BEDTIME 08/12/20 12/12/20 triamcinolone acetonide 0.1 % applic TOPICAL DAILY 08/12/20 12/12/20 topical cream Previous Rx's Medication Instructions Recorded glipizide 2.5 mg tablet, extended 2.5 mg PO DAILY #90 tab 09/12/20 release 24 hr naproxen 500 mg tablet 500 mg PO BID PRN #60 tab 09/12/20 atenolol 25 mg tablet 12.5 mg PO DAILY 30 Days #15 tab 09/14/20 clotrimazole 1 % vaginal cream 1 appful VAGINAL BEDTIME 7 Days 09/14/20 #45 g lorazepam 0.5 mg tablet 0.5 mg PO DAILY PRN 30 Days #30 tab 11/24/20 fluconazole 150 mg tablet 150 mg PO DAILY 1 Days #1 tab 12/01/20 nitrofurantoin 100 mg PO Q12H 7 Days #14 cap 12/01/20 monohydrate/macrocrystals 100 mg capsule tramadol 50 mg tablet 50 mg PO DAILY PRN 10 Days #10 tab 12/01/20 metformin 500 mg tablet,extended 1,000 mg PO BID 30 Days #120 tab 12/09/20 release 24 hr amoxicillin 500 mg capsule 500 mg PO Q8H 5 Days #15 cap 12/12/20 lorazepam 0.5 mg tablet 0.5 mg PO DAILY PRN 30 Days #30 tab 12/12/20 amoxicillin 875 mg-potassium 1 tab PO BID 7 Days #14 tab 12/14/20 clavulanate 125 mg tablet hydrocortisone 1 appl TOPICAL TID PRN #28 g 12/18/20 levofloxacin 500 mg PO Q24H #2 tab 12/18/20 Allergies Allergy/AdvReac Type Severity Reaction Status Date / Time amoxicillin [From Augmentin] Allergy Intermediate rash Verified 12/18/20 15:34 cefuroxime [From CEFTIN] Allergy Intermediate RASH Verified 12/12/20 13:56 clavulanic acid Allergy Intermediate rash Verified 12/18/20 15:34 [From Augmentin] doxycycline [DOXYCYCLINE] Allergy Unknown HIVES Verified 12/12/20 13:56 Sulfa (Sulfonamide Allergy Unknown rash Verified 12/12/20 13:56 Antibiotics) Celfain Allergy Unknown rash Uncoded 12/12/20 13:56 Review of Systems Review of Systems: Constitutional: No Fever, No Chills ENT/Mouth: No sore throat, No Rhinorrhea, No Swallowing Difficulty Eyes: No Eye Pain, + Swelling, No Redness, +watery eyes Cardiovascular: No Chest Pain, No SOB Respiratory: No Cough, No Sputum, + Wheezing, No dyspnea Gastrointestinal: No Nausea, No Vomiting, No Diarrhea, No abdominal Pain Genitourinary: No Dysuria, No Urinary Frequency, No Hematuria Musculoskeletal: No joint pain, No Myalgias Skin: No Skin Lesions, + rash Psych: + Anxiety/Panic Heme/Lymph: No Bruising, No Lymphadenopathy PMFSH Past Medical History Attestation statement: The following information was validated with the patient. Medical History Cardiac arrhythmia Diabetes HTN (hypertension) Surgical History H/O: hysterectomy History of cardiac radiofrequency ablation Family History Family History Father CVD (cardiovascular disease) Mother No problems noted. Social History Social History Alcohol intake: never Smoking Status: Never smoker Use of substances other than those prescribed or required for medical reasons: No Advance Directives: No Advance Directives Information Provided: No Physical Exam Vital Signs: Vital Signs: Last Vital Signs Temp 98.5 F 12/18/20 13:31 Pulse 79 12/18/20 13:31 Resp 20 12/18/20 13:31 BP 126/71 12/18/20 13:31 Pulse Ox 100 12/18/20 13:31 Body Mass Index 30.1 Appearance: Alert. Oriented X3. No acute distress. HEENT: minor upper lid swelling of bilateral eyes, no scleral injection, PERRLA, EOMI. no discharge. normal posterior pharynx, uvula midline, normal voice, handling secretions normally. normal lips CVS: Normal heart rate and rhythm. Pulses normal. Respiratory: No respiratory distress. Lungs CTAB. No wheezing. Skin: Skin warm and dry. Normal skin color. Normal skin turgor. Erythematous, raised rash on bilateral forearms and dorsal hands Extremities: no LE edema Neuro: Oriented X 3. No motor deficit. No sensory deficit. Course Course Course Narrative: 70 y/o female presenting with allergic reaction that started last night after taking Augmentin - lungs are clear without airway involvement. She is on lisinopril but there is no evidence of angioedema. Will give dose of IV solumedrol, benadryl and pepcid and observe in the ER. Will stop Augmentin and repeat UA to see if still evidence of UTI. She is reporting some mild persistent dysuria. Reevaluation(s) Reevaluation #1: Patient is feeling much better after meds. UA is negative. Given she is still having dysuria will treat for 3 more days, changing therapy to Levaquin which she has tolerated well in the past. No plans to continue systemic steroids given her rash is localized and she is diabetic. She is stable for discharge and will follow up with her doctor this week. MDM - Allergic Reaction Lab Data Labs: Lab Results 12/18/20 Range/Units 14:53 Urine Color YELLOW Urine Appearance CLEAR Urine pH 5.5 (5.0-8.0) Ur Specific [place] 1.015 (1.005-1.025) Urine Protein NEG (NEG-TRACE) MG/DL Urine Glucose (UA) NEG (NEG) MG/DL Urine Ketones NEG (NEG) MG/DL Urine Blood NEG (NEG) Urine Nitrite NEG (NEG) Ur Leukocyte Esterase NEG (NEG) Discharge Plan Discharge Clinical Impression: Allergic reaction Qualifiers: Encounter type: initial encounter Qualified Code(s): T78.40XA - Allergy, unspecified, initial encounter Patient Disposition: Home, Self-Care Instructions: General Allergic Reaction (ED) Additional Instructions: STOP taking the amoxicillin-clavulanate (also known as Augmentin) START taking levofloxacin TOMORROW for your symptoms of UTI Use the prescribed topical steroid 2-3 times per day as needed for itching. Continue to take Benadryl 25-50 mg every six hours as needed for itching. Follow up with your doctor this week. If you have worsening symptoms come back to the ER for further evaluation. Prescriptions: New levofloxacin 500 mg tablet 500 mg PO Q24H Qty: 2 RF: 0 hydrocortisone 2.5 % cream 1 appl topical TID PRN (Reason: itching) Qty: 28 RF: 0 No Action glipizide 2.5 mg tablet extended release 24hr 2.5 mg PO DAILY Qty: 90 RF: 0 atenolol 25 mg tablet 12.5 mg PO DAILY 30 Days Qty: 15 RF: 3 clotrimazole 1 % cream 1 appful vaginal BEDTIME 7 Days Qty: 45 RF: 0 lorazepam 0.5 mg tablet 0.5 mg PO DAILY PRN (Reason: anxiety) 30 Days Qty: 30 RF: 2 metformin 500 mg tablet extended release 24 hr 1,000 mg PO BID 30 Days Qty: 120 RF: 4 amoxicillin 500 mg capsule 500 mg PO Q8H 5 Days Qty: 15 RF: 0 lorazepam 0.5 mg tablet 0.5 mg PO DAILY PRN (Reason: anxiety) 30 Days Qty: 30 RF: 0 amoxicillin-pot clavulanate [Augmentin] 875-125 mg tablet 1 tab PO BID 7 Days Qty: 14 RF: 0 naproxen 500 mg tablet 500 mg PO BID PRN (Reason: pain) Qty: 60 RF: 0 tramadol 50 mg tablet 50 mg PO DAILY PRN (Reason: pain) 10 Days Qty: 10 RF: 1 nitrofurantoin monohyd/m-cryst [Macrobid] 100 mg capsule 100 mg PO Q12H 7 Days Qty: 14 RF: 0 fluconazole 150 mg tablet 150 mg PO DAILY 1 Days Qty: 1 RF: 0 omeprazole 20 mg capsule,delayed release(DR/EC) 20 mg PO DAILY RF: 0 estradiol 0.5 mg tablet 0.5 mg PO DAILY RF: 0 levothyroxine 50 mcg tablet 50 mcg PO QAM RF: 0 Fluzone HighDose Quad 20-21 PF 240 mcg/0.7 mL syringe IM RF: 0 triamcinolone acetonide 0.1 % cream topical DAILY RF: 0 methocarbamol 500 mg tablet 500 mg PO BEDTIME RF: 0 lisinopril 2.5 mg tablet 2.5 mg PO DAILY RF: 0 simvastatin 40 mg tablet 40 mg PO BEDTIME RF: 0
[2020-12-18] MEDS: methylPREDNISolone Sod Succ/PF 125 MG/2 ML VIAL IVPUSH (14:07)
[2020-12-18] MEDS: Famotidine/PF 20 MG/2 ML VIAL IVPUSH (14:07)
[2020-12-18] MEDS: diphenhydrAMINE HCL 50 MG/ML VIAL 25 MG IVPUSH (14:07)
[2020-12-18 15:08] LABS: Glucose Urine UA NEG (NEG); Leukocyte Esterase Urine NEG (NEG); Nitrite Urine NEG (NEG); PH 5.5 (5.0-8.0); Specific Gravity - Urine 1.015 (1.005-1.025); Urine Blood NEG (NEG); Urine Ketones NEG (NEG); Urine Protein NEG (NEG-TRACE)
[2020-12-18 15:10] LABS: Appearance Urine CLEAR; Color Urine YELLOW
[2020-12-18] MEDS: levoFLOXacin 500 MG TABLET PO (15:27)
[2020-12-18] MEDS: Hydrocortisone 1 % Ointment 28.35 GM TUBE 1 APPL TOPICAL (15:41)
[2020-12-18 15:56] VITALS: PULSE 72; O2SAT 97
== END 2020-12-18 15:57 | disposition home or self-care (01) ==
PROVIDERS: Physician Assistant; Emergency Provider Emergency Medicine; PCP Physician Assistant
DX: L27.1 Localized skin eruption due to drugs and medicaments taken internally (principal); T36.0X5A Adverse effect of penicillins, initial encounter; Y92.019 Unspecified place in single-family (private) house as the place of occurrence of the external cause; N39.0 Urinary tract infection, site not specified; E11.9 Type 2 diabetes mellitus without complications; I10 Essential (primary) hypertension
CPT/HCPCS: 81003; 96374; 96375; 99284; J1200; J2930

== ENCOUNTER 2021-01-09 14:43 | Outpatient (REF) | payer MEDICARE, SELFPAY ==
--- NOTE | ~2021-01-09 | XR_ITS ---
EXAMINATION: XR RIBS, RIGHT CLINICAL INFORMATION: Pleurodynia COMPARISON: Previous chest x-ray November 2020 TECHNIQUE: 3 views of the right ribs and one view of the chest were obtained. FINDINGS: The cardiac and mediastinal contours are stable. There is a stable left pleural thickening and left apical calcification. The lungs are otherwise clear. There is no pleural effusion or pneumothorax. No rib fracture is seen. There are degenerative changes of the thoracic spine. XR/XR ribs RT min 3V w CXR1V IMPRESSION: No evidence for acute disease in the chest. No rib fracture seen. Degenerative changes of the thoracic spine.
== END 2021-01-09 14:44 | disposition home or self-care (01) ==
LOC: HO.HMGCX 14:43
PROVIDERS: PCP Physician Assistant; Visit Provider Nurse Practitioner Family
DX: R07.81 Pleurodynia (principal)
CPT/HCPCS: 71101

== ENCOUNTER 2021-01-11 13:23 | Outpatient (REF) | payer MEDICARE, SELFPAY | END 2021-01-11 13:24 | disposition home or self-care (01) | LOC: HO.US 13:23 | PROVIDERS: Visit Provider Physician Assistant | DX: Z13.89 Encounter for screening for other disorder (principal) ==

== ENCOUNTER 2021-01-12 09:40 | Outpatient (REF) | payer MEDICARE, SELFPAY ==
--- NOTE | ~2021-01-12 | US_ITS ---
EXAMINATION: US PELVIS LIMITED (BLADDER) CLINICAL INFORMATION: Urinary tract infection, site not specified. COMPARISON: Renal ultrasound 10/06/2018. TECHNIQUE: Real-time imaging of the bladder. FINDINGS: BLADDER: Partially distended. Bilateral ureteral jets are demonstrated. No filling defect. Prevoid bladder volume is 133 mL. Postvoid bladder volume is 7.5 mL. US/US bladder IMPRESSION: Normal appearance of the bladder. No wall thickening. Minimal postvoid residual volume.
== END 2021-01-12 09:41 | disposition home or self-care (01) ==
LOC: HO.US 09:40
PROVIDERS: PCP Physician Assistant; Visit Provider Physician Assistant
DX: N39.0 Urinary tract infection, site not specified (principal)
CPT/HCPCS: 76857

== ENCOUNTER 2021-01-13 00:37 | Emergency (ER) | payer MEDICARE, SELFPAY ==
--- NOTE | ~2021-01-13 | XR_ITS ---
EXAMINATION: LUMBOSACRAL SPINE 3 VIEWS CLINICAL INFORMATION: Pain after fall. COMPARISON: 11/18/2019. TECHNIQUE: AP, lateral, spot lateral views of the lumbosacral spine are provided. FINDINGS: There are no acute fractures. There is stable anterolisthesis of L4 in relation to L5. There is persistent disc height loss at L4/L5 and L5/S1. The remaining lumbar vertebra are in normal alignment. There is advanced facet arthropathy. XR/XR lumbar spine 2-3V IMPRESSION: Stable degenerative change without evidence of acute injury.
[2021-01-13 02:24] LABS: Glucose Urine UA NEG (NEG); Leukocyte Esterase Urine TRACE (NEG); Nitrite Urine POS (NEG); UACC Culture Trigger YES; Urine Blood NEG (NEG); Urine Ketones NEG (NEG); Urine Protein NEG (NEG-TRACE)
[2021-01-13 02:27] VITALS: BP 127/54; PULSE 81; RESP 18; TEMP 36.7; O2SAT 95; BMI 29.2
[2021-01-13 02:35] LABS: Appearance Urine HAZY; Color Urine YELLOW
[2021-01-13 02:37] LABS: Bacteria Urine 2+ /LPF; Mucus Urine 2+ /LPF; Squamous Epithelial Cell Urine 1+ /LPF
--- NOTE | 2021-01-13 02:58 | ED_ITS ---
HPI - Female Genitourinary General Chief complaint: Back Pain/Injury Stated complaint: UTI Time Seen by Provider: 01/13/21 02:56 Source: patient Mode of arrival: ambulatory Limitations: no limitations History of Present Illness HPI Narrative: . pt with History of recurrent UTI chronic low back pain just finished antibiotic 5 days ago complaining of low back pain and dysuria without significant frequency plan to see urologist next week, patient also complaining of low back pain fell few days ago MD elicited complaint: dysuria Related Data Home Medications Medication Instructions Recorded Confirmed estradiol 0.5 mg tablet 0.5 mg PO DAILY 08/12/20 12/29/20 flu vacc [id number](65yr up)-PF 240 ml IM 08/12/20 12/29/20 mcg/0.7 mL intramuscular syringe levothyroxine 50 mcg tablet 50 mcg PO QAM 08/12/20 12/29/20 lisinopril 2.5 mg tablet 2.5 mg PO DAILY 08/12/20 12/29/20 methocarbamol 500 mg tablet 500 mg PO BEDTIME 08/12/20 12/29/20 omeprazole 20 mg capsule,delayed 20 mg PO DAILY 08/12/20 12/29/20 release triamcinolone acetonide 0.1 % applic TOPICAL DAILY 08/12/20 12/29/20 topical cream Previous Rx's Medication Instructions Recorded glipizide 2.5 mg tablet, extended 2.5 mg PO DAILY #90 tab 09/12/20 release 24 hr naproxen 500 mg tablet 500 mg PO BID PRN #60 tab 09/12/20 atenolol 25 mg tablet 12.5 mg PO DAILY 30 Days #15 tab 09/14/20 clotrimazole 1 % vaginal cream 1 appful VAGINAL BEDTIME 7 Days 09/14/20 #45 g fluconazole 150 mg tablet 150 mg PO DAILY 1 Days #1 tab 12/01/20 nitrofurantoin 100 mg PO Q12H 7 Days #14 cap 12/01/20 monohydrate/macrocrystals 100 mg capsule tramadol 50 mg tablet 50 mg PO DAILY PRN 10 Days #10 tab 12/01/20 hydrocortisone 1 appl TOPICAL TID PRN #28 g 12/18/20 dexamethasone 4 mg tablet 4 mg PO .COMPLEX #18 tab 12/22/20 lorazepam 0.5 mg tablet 0.5 mg PO DAILY PRN 30 Days #30 tab 12/29/20 simvastatin 40 mg tablet 40 mg PO BEDTIME 90 Days #90 tab 01/02/21 levofloxacin 500 mg tablet 500 mg PO DAILY #5 tab 01/03/21 tramadol 50 mg tablet 50 mg PO DAILY PRN #10 tab 01/09/21 lorazepam 0.5 mg tablet 0.5 mg PO BEDTIME PRN #30 tab 01/11/21 metformin 500 mg tablet,extended 1,000 mg PO BID 30 Days #120 tab 01/11/21 release 24 hr acetaminophen-codeine 1 tab PO Q8H PRN #20 tab 01/13/21 lidocaine [Lidoderm] 1 patch TOPICAL DAILY #15 ea 01/13/21 Allergies Allergy/AdvReac Type Severity Reaction Status Date / Time amoxicillin [From Augmentin] Allergy Intermediate rash Verified 12/29/20 10:26 cefuroxime [From CEFTIN] Allergy Intermediate RASH Verified 12/29/20 10:26 clavulanic acid Allergy Intermediate rash Verified 12/29/20 10:26 [From Augmentin] doxycycline [DOXYCYCLINE] Allergy Unknown HIVES Verified 12/29/20 10:26 Sulfa (Sulfonamide Allergy Unknown rash Verified 12/29/20 10:26 Antibiotics) Celfain Allergy Unknown rash Uncoded 12/29/20 10:02 Review of Systems Review of Systems: Constitutional : No Weight loss, No Fever, No Chills ENT/Mouth : No sore throat, No Rhinorrhea Eyes: No Eye Pain, No Swelling Cardiovascular : No Chest Pain, no palpitations Respiratory : No Cough, No Sputum, no shortness of breath Gastrointestinal : no Nausea, No Vomiting, No Diarrhea, No abdominal Pain, no black stools Genitourinary : + Dysuria, No Urinary Frequency Musculoskeletal : No joint pain, No Myalgias, No Joint Swelling Skin : No Skin Lesions, No rash Neuro : No Weakness, No Numbness, No Dizziness, No Headache Psych : No Anxiety/Panic, No Depression Heme/Lymph: No Bruising, No Lymphadenopathy Endocrine : No Polyuria, No Polydipsia All other systems reviewed and are negative [facility] Past Medical History Medical History Cardiac arrhythmia Diabetes HTN (hypertension) Surgical History H/O: hysterectomy History of cardiac radiofrequency ablation Family History Family History Father CVD (cardiovascular disease) Mother No problems noted. Social History Social History Alcohol intake: never Smoking Status: Never smoker Smoked in Last 30 Days: No Advance Directives: No Advance Directives Information Provided: No Physical Exam Vital Signs: Vital Signs: Last Vital Signs Temp 98.1 F 01/13/21 02:27 Pulse 81 01/13/21 02:27 Resp 18 01/13/21 02:27 BP 127/54 L 01/13/21 02:27 Pulse Ox 95 01/13/21 02:27 Body Mass Index 29.2 Appearance: Alert. Oriented X3. No acute distress. Eyes: Pupils equal, round and reactive to light. ENT: Pharynx normal. Neck: Normal inspection. Neck supple. CVS: Normal heart rate and rhythm. Pulses normal. Respiratory: No respiratory distress. Breath sounds normal. Abdomen: Soft and nontender. Bowel sounds are present, no mass palpable, no CVA tenderness, diffuse lumbosacral tenderness no focal spinal tenderness patient ambulatory Skin: Skin warm and dry. Normal skin color. Normal skin turgor. Extremities: No lower extremity edema. Neuro: Oriented X 3. No motor deficit. No sensory deficit. MDM - Female Genitourinary MDM Narrative Medical decision making narrative: Patient with recurrent mild UTI with low back pain x-ray negative for any compression fracture will discharge her home on Macrobid patient supposed to follow with urologist Medical Records Attestation: I reviewed the patient's medical records. Lab Data Attestation: I reviewed the patient's lab results. Labs: Lab Results 01/13/21 Range/Units 02:15 Urine Color YELLOW Urine Appearance HAZY Urine pH 6.0 (5.0-8.0) Ur Specific [place] 1.010 (1.005-1.025) Urine Protein NEG (NEG-TRACE) MG/DL Urine Glucose (UA) NEG (NEG) MG/DL Urine Ketones NEG (NEG) MG/DL Urine Blood NEG (NEG) Urine Nitrite POS H (NEG) Ur Leukocyte Esterase TRACE H (NEG) Urine RBC 1-4 (0) /HPF Urine WBC 5-9 H (0-4) /HPF Ur Squamous Epith Cells 1+ /LPF Urine Bacteria 2+ /LPF Urine Mucus 2+ /LPF Urine Yeast 1+ /HPF Discharge Plan Discharge Clinical Impression: Recurrent UTI Patient Disposition: Home, Self-Care Instructions: Urinary Tract Infection in Women (ED), Chronic Back Pain (DC) Additional Instructions: Drink plenty of fluids take antibiotic as prescribed follow-up with urologist as scheduled Report to ER if worsening of pain high fever vomiting Prescriptions: New acetaminophen-codeine 300-30 mg tablet 1 tab PO Q8H PRN (Reason: pain) Qty: 20 RF: 0 lidocaine [Lidoderm] 5 % adhesive patch,medicated 1 patch topical DAILY Qty: 15 RF: 0 No Action glipizide 2.5 mg tablet extended release 24hr 2.5 mg PO DAILY Qty: 90 RF: 0 atenolol 25 mg tablet 12.5 mg PO DAILY 30 Days Qty: 15 RF: 3 clotrimazole 1 % cream 1 appful vaginal BEDTIME 7 Days Qty: 45 RF: 0 simvastatin 40 mg tablet 40 mg PO BEDTIME 90 Days Qty: 90 RF: 1 levofloxacin 500 mg tablet 500 mg PO DAILY Qty: 5 RF: 0 metformin 500 mg tablet extended release 24 hr 1,000 mg PO BID 30 Days Qty: 120 RF: 4 lorazepam 0.5 mg tablet 0.5 mg PO BEDTIME PRN (Reason: anxiety) Qty: 30 RF: 0 hydrocortisone 2.5 % cream 1 appl topical TID PRN (Reason: itching) Qty: 28 RF: 0 naproxen 500 mg tablet 500 mg PO BID PRN (Reason: pain) Qty: 60 RF: 0 tramadol 50 mg tablet 50 mg PO DAILY PRN (Reason: pain) 10 Days Qty: 10 RF: 1 nitrofurantoin monohyd/m-cryst [Macrobid] 100 mg capsule 100 mg PO Q12H 7 Days Qty: 14 RF: 0 fluconazole 150 mg tablet 150 mg PO DAILY 1 Days Qty: 1 RF: 0 tramadol 50 mg tablet 50 mg PO DAILY PRN (Reason: pain (scale score 7-10)) Qty: 10 RF: 0 omeprazole 20 mg capsule,delayed release(DR/EC) 20 mg PO DAILY RF: 0 estradiol 0.5 mg tablet 0.5 mg PO DAILY RF: 0 levothyroxine 50 mcg tablet 50 mcg PO QAM RF: 0 Fluzone HighDose Quad 20-21 PF 240 mcg/0.7 mL syringe IM RF: 0 triamcinolone acetonide 0.1 % cream topical DAILY RF: 0 methocarbamol 500 mg tablet 500 mg PO BEDTIME RF: 0 lisinopril 2.5 mg tablet 2.5 mg PO DAILY RF: 0 lorazepam 0.5 mg tablet 0.5 mg PO DAILY PRN (Reason: anxiety) 30 Days Qty: 30 RF: 1 dexamethasone [Decadron] 4 mg tablet 4 mg PO .COMPLEX Qty: 18 RF: 0
[2021-01-13] MEDS: Nitrofurantoin Monohyd/M-Cryst 100 MG CAPSULE PO (04:51)
[2021-01-13] MEDS: Lidocaine 4 % Patch ADH..PATCH 1 PATCH TRANSDERMA (04:52)
== END 2021-01-13 07:19 | disposition home or self-care (01) ==
PROVIDERS: Emergency Provider Internal Medicine; PCP Physician Assistant
DX: M54.5 Low back pain (principal); N39.0 Urinary tract infection, site not specified; Z87.440 Personal history of urinary (tract) infections; E11.9 Type 2 diabetes mellitus without complications; I10 Essential (primary) hypertension; Z79.84 Long term (current) use of oral hypoglycemic drugs; Z79.899 Other long term (current) drug therapy
CPT/HCPCS: 72100; 81001; 81003; 87086; 99283; 99284

== ENCOUNTER 2021-01-24 09:27 | Outpatient (REF) | payer MEDICARE, SELFPAY ==
--- NOTE | ~2021-01-24 | US_ITS ---
EXAMINATION: US RETROPERITONEAL LIMITED (RENAL ONLY) CLINICAL INFORMATION: Unspecified abdominal pain. COMPARISON: Ultrasound bladder 01/12/2021. Ultrasound renal with bladder 10/06/2018. TECHNIQUE: Real-time imaging of the kidneys. FINDINGS: RIGHT KIDNEY: 11.3 x 4.5 x 5.5 cm (SAG x AP x TRV). The kidney is normal in size, contour, and echogenicity. Renal cortical thickness is normal. No renal calculi or hydronephrosis. There is an anechoic cyst lower pole measuring 2.2 x 2.2 x 2.3 cm. LEFT KIDNEY: 10.8 x 5.2 x 5.0 cm (SAG x AP x TRV). The kidney is normal in size, contour, and echogenicity. Renal cortical thickness is normal. No renal calculi or hydronephrosis. There is an anechoic cyst in the lower pole measuring 2.7 x 1.9 x 2.6 cm. US/US renal BI IMPRESSION: Bilateral anechoic renal cysts. No echogenic stones or hydronephrosis. The findings are stable compared to 10/06/2018.
== END 2021-01-24 09:28 | disposition home or self-care (01) ==
LOC: HO.US 09:27
PROVIDERS: PCP Physician Assistant; Visit Provider Nurse Practitioner Family
DX: R10.9 Unspecified abdominal pain (principal)
CPT/HCPCS: 76775

== ENCOUNTER → 2021-02-08 14:50 | Outpatient (BNVA) | payer MEDICARE, SELFPAY | PROVIDERS: PCP Physician Assistant; Visit Provider Urology | DX: N39.0 Urinary tract infection, site not specified (principal) | CPT/HCPCS: 81002; 99212 ==

== ENCOUNTER 2021-03-23 11:57 | Outpatient (REF) | payer MEDICARE, SELFPAY | END 2021-03-23 11:58 | disposition home or self-care (01) | LOC: HO.LAB 11:57 | PROVIDERS: PCP Physician Assistant; Visit Provider Urology | DX: N39.0 Urinary tract infection, site not specified (principal) | CPT/HCPCS: 87086 ==

== ENCOUNTER 2021-04-01 09:09 | Emergency (ER) | payer MEDICARE, SELFPAY ==
--- NOTE | ~2021-04-01 | XR_ITS ---
EXAMINATION: PORTABLE CHEST 1 VIEW CLINICAL INFORMATION: cough . COMPARISON: 01/09/2021. TECHNIQUE: Portable frontal view of the chest was obtained. FINDINGS: The lungs are well expanded. Mild blunting the left costophrenic angle similar to the prior study without superimposed focal infiltrate, effusion, edema, or pneumothorax. Cardiac and mediastinal silhouettes are within normal limits for size with vascular calcification in the aorta. No acute bony abnormality seen. Degenerative changes in the spine and shoulders. XR/XR chest 1V IMPRESSION: Chronic appearing changes similar to the prior study. I do not appreciate any acute airspace disease.
--- NOTE | ~2021-04-01 | US_ITS ---
EXAMINATION: US VENOUS ULTRASOUND WITH DOPPLER LOWER EXTREMITY, BILATERAL CLINICAL INFORMATION: Pain COMPARISON: Previous left lower extremity venous ultrasound May 2014 TECHNIQUE: Ultrasound of the deep veins is performed from the hip to the calf with compression sonography and color and pulse Doppler assessment. Spectral analysis with color-flow imaging is performed. FINDINGS: RIGHT: There is normal venous compression and respiratory variation and augmented flow. The visualized common femoral vein, superficial femoral vein, profunda femoral vein, popliteal vein, and the trifurcation region shows no evidence of deep venous thrombosis. There is no significant popliteal fossa cyst. LEFT: There is normal venous compression and respiratory variation and augmented flow. The visualized common femoral vein, superficial femoral vein, profunda femoral vein, popliteal vein, and the trifurcation region shows no evidence of deep venous thrombosis. There is no significant popliteal fossa cyst. If the patient's symptoms persist, followup ultrasound in 5 days 7 days might be of value to exclude proximal propagation from a non-visualized calf vein. US/US venous duplex LE BI IMPRESSION: No DVT demonstrated in the bilateral lower extremity.
[2021-04-01 09:18] VITALS: BP 153/79; PULSE 74; RESP 16; TEMP 36.6; O2SAT 96; BMI 30.1
--- NOTE | 2021-04-01 09:24 | ED.GENADULT ---
HPI - General Adult General Chief complaint: General Medical Stated complaint: multiple complaints Time Seen by Provider: 04/01/21 09:12 Source: patient Mode of arrival: ambulatory Limitations: no limitations History of Present Illness HPI narrative: 70 yo female with hx of recurrent UTI started on macrobid yesterday by [employer] which seems to be helping and usually works for her, comes in with c/o a few days (prior to the medications) of cramps in both her legs, cough, runny nose, she is worried she couuld have blood clots and also wants an EKG jsut to be sure. MD complaint: cough, cramps in legs Onset (ago): day(s) (3) Severity: mild Quality: aching Pain Consistency: intermittent Relieving factors: none Exacerbating factors: none Associated symptoms: other (cough, runny nose, cramps in legs) Treatments prior to arrival: other (takes claritin and started herself on macrobid) Related Data Home Medications Medication Instructions Recorded Confirmed flu vacc [id number](65yr up)-PF 240 ml IM 08/12/20 02/28/21 mcg/0.7 mL intramuscular syringe levothyroxine 50 mcg tablet 50 mcg PO QAM 08/12/20 02/28/21 triamcinolone acetonide 0.1 % applic TOPICAL DAILY 08/12/20 02/28/21 topical cream nitrofurantoin 100 mg PO BID 01/18/21 02/28/21 monohydrate/macrocrystals 100 mg capsule latanoprost 0.005 % eye drops 1 drp OPHTHALMIC (EYE) BEDTIME 02/08/21 02/28/21 Previous Rx's Medication Instructions Recorded clotrimazole 1 % vaginal cream 1 appful VAGINAL BEDTIME 7 Days 09/14/20 #45 g nitrofurantoin 100 mg PO Q12H 7 Days #14 cap 12/01/20 monohydrate/macrocrystals 100 mg capsule hydrocortisone 1 appl TOPICAL TID PRN #28 g 12/18/20 simvastatin 40 mg tablet 40 mg PO BEDTIME 90 Days #90 tab 01/02/21 metformin 500 mg tablet,extended 1,000 mg PO BID 30 Days #120 tab 01/11/21 release 24 hr acetaminophen-codeine 1 tab PO Q8H PRN #20 tab 04/02/21 diclofenac sodium 1 % topical gel 2 g TOPICAL QID #100 g 01/18/21 omeprazole 20 mg capsule,delayed 20 mg PO DAILY #90 cap 02/26/21 release glipizide 2.5 mg tablet, extended 2.5 mg PO DAILY 30 Days #30 tab 02/28/21 release 24 hr lorazepam 0.5 mg tablet 0.5 mg PO BEDTIME PRN #30 tab 02/28/21 tramadol 50 mg tablet See Rx Instructions PO .COMPLEX 02/28/21 PRN 10 Days #30 tab lisinopril 2.5 mg tablet 2.5 mg PO DAILY #90 tab 03/09/21 estradiol See Rx Instructions .ROUTE DAILY 03/17/21 30 Days #42.5 g atenolol 25 mg tablet 12.5 mg PO DAILY #15 tab 03/20/21 estradiol 0.5 mg tablet 0.5 mg PO DAILY #90 tab 03/27/21 fluticasone propionate 1 spray INTRANASAL DAILY PRN #16 g 04/01/21 Allergies Allergy/AdvReac Type Severity Reaction Status Date / Time amoxicillin [From Augmentin] Allergy Intermediate rash Verified 02/28/21 12:21 cefuroxime [From CEFTIN] Allergy Intermediate RASH Verified 02/28/21 12:21 clavulanic acid Allergy Intermediate rash Verified 02/28/21 12:21 [From Augmentin] doxycycline [DOXYCYCLINE] Allergy Unknown HIVES Verified 02/28/21 12:21 Sulfa (Sulfonamide Allergy Unknown rash Verified 02/28/21 12:21 Antibiotics) Celfain Allergy Unknown rash Uncoded 12/29/20 10:02 Review of Systems Review of Systems: Constitutional : No Weight loss, No Fever, No Chills, No Fatigue, No Malaise ENT/Mouth : No sore throat, pos Rhinorrhea Eyes: No Eye Pain, No Swelling, No Redness Cardiovascular : No Chest Pain, No SOB, No Dyspnea on Exertion, No Orthopnea, No Edema, No Palpitations Respiratory : pos Cough, No Sputum, No Wheezing Gastrointestinal : No Nausea, No Vomiting, No Diarrhea, No Constipation, No abdominal Pain, No Hematochezia, No Melena Genitourinary : No Dysuria, No Urinary Frequency, No Hematuria, Musculoskeletal : No joint pain, pos Myalgias, No Joint Swelling Skin : No Skin Lesions, No rash Neuro : No Weakness, No Numbness, No Dizziness, No Headache Psych : No Anxiety/Panic, No Depression Heme/Lymph: No Bruising, No Bleeding,No Lymphadenopathy Endocrine : No Polyuria, No Polydipsia All other systems reviewed and are negative [facility] Past Medical History Medical History Cardiac arrhythmia Diabetes HTN (hypertension) Recurrent UTI Surgical History H/O: hysterectomy History of cardiac radiofrequency ablation Family History Family History Father CVD (cardiovascular disease) Mother No problems noted. Social History Social History (Updated 04/01/21 @ 09:52 by Arlyn Glynn DO) Alcohol intake: never Patient Tobacco Use Status: Former Tobacco user Smoked in Last 30 Days: No Use of substances other than those prescribed or required for medical reasons: No Advance Directives: No Advance Directives Information Provided: No Physical Exam Vital Signs: Vital Signs: Last Vital Signs Temp 97.9 F 04/01/21 09:18 Pulse 60 04/01/21 11:23 Resp 14 04/01/21 11:23 BP 140/67 H 04/01/21 11:23 Pulse Ox 97 04/01/21 11:23 Body Mass Index 30.1 Appearance: Alert. Oriented X3. No acute distress. Eyes: Pupils equal, round and reactive to light. ENT: Pharynx normal. TMs normal mild cerumen noted Neck: Normal inspection. Neck supple. CVS: Normal heart rate and rhythm. Pulses normal. Respiratory: No respiratory distress. Breath sounds normal. Abdomen: Soft and nontender. Skin: Skin warm and dry. Normal skin color. Normal skin turgor. Extremities: non-pitting edema noted around ankles. No calf ttp Neuro: Oriented X 3. No motor deficit. No sensory deficit. Course Course Course Narrative: no acute findings, stable for DC Medical Decision Making MDM Narrative Medical decision making narrative: 70 yo female with hx of recurrent UTI started on macrobid yesterday by [employer] which seems to be helping and usually works for her, comes in with c/o a few days (prior to the medications) of cramps in both her legs, cough, runny nose, she is worried she couuld have blood clots and also wants an EKG jsut to be sure. At this time no fevers, already COVID vaccinated x 2, CXR for pneumonia ordered, EKG given her concerns of arrhythmia, US to r/o DVT given pain and some edema noted, lytes - overall patient is not toxic but appears anxious Lab Data Result diagrams: 04/01/21 10:05 04/01/21 10:05 Labs: Lab Results 04/01/21 04/01/21 04/01/21 Range/Units 09:52 10:05 10:05 WBC 12.5 H (4.8-10.8) X10*3/uL RBC 3.86 L (4.20-5.50) X10*6/uL Hgb 10.9 L (12.0-16.0) g/dl Hct 32.2 L (37-47) % MCV 83.4 (80-98) fL MCH 28.2 (27.0-33.0) pg MCHC 33.9 (31.0-35.0) g/dl RDW 12.8 (11.0-16.0) % Plt Count 209 (160-400) X10*3/uL MPV 9.9 (9.4-12.3) fL Immature Gran % (Auto) 0.3 (0.0-0.4) % Neut % (Auto) 85.5 H (45-73) % Lymph % (Auto) 9.1 L (20-40) % [place] % (Auto) 4.4 (2-11) % Eos % (Auto) 0.5 (0-4) % Baso % (Auto) 0.2 (0-2) % Lymph # (Auto) 1.1 L (1.2-4.9) X10*3/uL [place] # (Auto) 0.6 (0.1-1.2) X10*3/uL Eos # (Auto) 0.1 (0.0-0.4) X10*3/uL Baso # (Auto) 0.0 (0.0-0.2) X10*3/uL Abs Immat Gran (auto) 0.04 H (0.00-0.03) X10*3/uL Absolute Neuts (auto) 10.7 H (2.0-8.3) X10*3/uL Absolute Nucleated RBC 0.000 (0.0-0.012) X10*3/uL Nucleated RBC % (auto) 0.0 (0.0-0.2) /100WBC Sodium 141 (135-145) mmol/L Potassium 4.5 (3.3-5.1) mmol/L Chloride 109 H (96-108) mmol/L Carbon Dioxide 22 (22-29) mmol/L Anion Gap 15 (12-20) BUN 8 L (9-16) mg/dL Creatinine 0.81 (0.5-1.4) mg/dL Estim Creat Clear Calc 62.6 Estimated GFR > 60 Random Glucose 170 H D (60-115) mg/dL Calcium 10.8 H D (8.4-10.2) mg/dL Magnesium 1.6 (1.6-2.6) mg/dL B-Natriuretic Peptide (<100) pg/mL COVID-19 (ARVIN) Negative (Negative) COVID-19 Clin Com See Note 04/01/21 Range/Units 10:05 WBC (4.8-10.8) X10*3/uL RBC (4.20-5.50) X10*6/uL Hgb (12.0-16.0) g/dl Hct (37-47) % MCV (80-98) fL MCH (27.0-33.0) pg MCHC (31.0-35.0) g/dl RDW (11.0-16.0) % Plt Count (160-400) X10*3/uL MPV (9.4-12.3) fL Immature Gran % (Auto) (0.0-0.4) % Neut % (Auto) (45-73) % Lymph % (Auto) (20-40) % [place] % (Auto) (2-11) % Eos % (Auto) (0-4) % Baso % (Auto) (0-2) % Lymph # (Auto) (1.2-4.9) X10*3/uL [place] # (Auto) (0.1-1.2) X10*3/uL Eos # (Auto) (0.0-0.4) X10*3/uL Baso # (Auto) (0.0-0.2) X10*3/uL Abs Immat Gran (auto) (0.00-0.03) X10*3/uL Absolute Neuts (auto) (2.0-8.3) X10*3/uL Absolute Nucleated RBC (0.0-0.012) X10*3/uL Nucleated RBC % (auto) (0.0-0.2) /100WBC Sodium (135-145) mmol/L Potassium (3.3-5.1) mmol/L Chloride (96-108) mmol/L Carbon Dioxide (22-29) mmol/L Anion Gap (12-20) BUN (9-16) mg/dL Creatinine (0.5-1.4) mg/dL Estim Creat Clear Calc Estimated GFR Random Glucose (60-115) mg/dL Calcium (8.4-10.2) mg/dL Magnesium (1.6-2.6) mg/dL B-Natriuretic Peptide 86 (<100) pg/mL COVID-19 (ARVIN) (Negative) COVID-19 Clin Com ECG Data Attestation: I personally reviewed and interpreted this ECG as follows: Interpretation: Rate: 65 Rhythm: NSR [place]: normal Normal P waves. Normal CLEM. Normal QRS complex. ST T wave : normal no MARY qTC: normal prior studies: no acute ischemia The study has been interpreted contemporaneously by me. . Discharge Plan Discharge Clinical Impression: Myalgia, Allergic rhinitis Patient Disposition: Home, Self-Care Instructions: Allergic Rhinitis (ED), Leg Cramps (ED) Additional Instructions: return to ED for any worsening symptoms or concerns NORMAL CHEST XRAY, NORMAL EKG, NO BLOOD CLOT ON ULTRASOUND YOUR CALCIUM WAS VERY MILDLY ELEVATED RECHECK WITH YOUR DOCTOR IN 1 WEEK Prescriptions: New fluticasone propionate 50 mcg/actuation spray,suspension 1 spray intranasal DAILY PRN (Reason: allergy symptoms) Qty: 16 RF: 0 No Action clotrimazole 1 % cream 1 appful vaginal BEDTIME 7 Days Qty: 45 RF: 0 simvastatin 40 mg tablet 40 mg PO BEDTIME 90 Days Qty: 90 RF: 1 metformin 500 mg tablet extended release 24 hr 1,000 mg PO BID 30 Days Qty: 120 RF: 4 omeprazole 20 mg capsule,delayed release(DR/EC) 20 mg PO DAILY Qty: 90 RF: 2 lisinopril 2.5 mg tablet 2.5 mg PO DAILY Qty: 90 RF: 2 estradiol 0.01 % (0.1 mg/gram) cream See Rx Instructions .Route DAILY 30 Days Qty: 42.5 RF: 2 atenolol 25 mg tablet 12.5 mg PO DAILY Qty: 15 RF: 3 estradiol 0.5 mg tablet 0.5 mg PO DAILY Qty: 90 RF: 0 hydrocortisone 2.5 % cream 1 appl topical TID PRN (Reason: itching) Qty: 28 RF: 0 acetaminophen-codeine 300-30 mg tablet 1 tab PO Q8H PRN (Reason: pain) Qty: 20 RF: 0 nitrofurantoin monohyd/m-cryst [Macrobid] 100 mg capsule 100 mg PO Q12H 7 Days Qty: 14 RF: 0 tramadol 50 mg tablet See Rx Instructions PO .COMPLEX PRN (Reason: pain (scale score 7-10)) 10 Days Qty: 30 RF: 0 lorazepam 0.5 mg tablet 0.5 mg PO BEDTIME PRN (Reason: anxiety) Qty: 30 RF: 2 glipizide 2.5 mg tablet extended release 24hr 2.5 mg PO DAILY 30 Days Qty: 30 RF: 0 nitrofurantoin monohyd/m-cryst 100 mg capsule 100 mg PO BID RF: 0 diclofenac sodium 1 % gel 2 g topical QID Qty: 100 RF: 0 levothyroxine 50 mcg tablet 50 mcg PO QAM RF: 0 Fluzone HighDose Quad 20-21 PF 240 mcg/0.7 mL syringe IM RF: 0 triamcinolone acetonide 0.1 % cream topical DAILY RF: 0 latanoprost 0.005 % drops 1 drp ophthalmic (eye) BEDTIME RF: 0 Referrals: Sammy Cordova PA-C [Primary Care Provider] - 3 days (if not better)
--- NOTE | 2021-04-01 09:31 | ECG_ITS ---
Test Reason : MED CLEARANCE Blood Pressure : / mmHG Vent. Rate : 065 BPM Atrial Rate : 065 BPM P-R Int : 184 ms QRS Dur : 078 ms QT Int : 410 ms P-R-T Axes : 036 040 047 degrees QTc Int : 426 ms Sinus rhythm with Premature atrial complexes Otherwise normal ECG When compared with ECG of 22-NOV-2020 15:33, Premature atrial complexes are now Present Referred By: Arlyn Glynn Electronically Signed By:ELY BENJAMIN
[2021-04-01 10:09] LABS: MANUAL DIFF FLAG NO
[2021-04-01 10:10] LABS: Basophils Percent Auto 0.2 % (0-2); Eosinophils Absolute Auto 0.1 X10*3/uL (0.0-0.4); Eosinophils Percent Auto 0.5 % (0-4); Hematocrit 32.2 % (37-47); Hemoglobin 10.9 g/dl (12.0-16.0); Imm Gran Abs Auto 0.04 X10*3/uL (0.00-0.03); Imm Gran Pct Auto 0.3 % (0.0-0.4); Lymphocytes Absolute Auto 1.1 X10*3/uL (1.2-4.9); Lymphocytes Percent Auto 9.1 % (20-40); Mean Corpuscular HGB Conc 33.9 g/dl (31.0-35.0); Mean Corpuscular Hemoglobin 28.2 pg (27.0-33.0); Mean Corpuscular Volume 83.4 fL (80-98); Mean Platelet Volume 9.9 fL (9.4-12.3); Monocytes Absolute Auto 0.6 X10*3/uL (0.1-1.2); Monocytes Percent Auto 4.4 % (2-11); Neutrophils Absolute Auto 10.7 X10*3/uL (2.0-8.3); Neutrophils Percent Auto 85.5 % (45-73); Platelet Count 209 X10*3/uL (160-400); Red Blood Count 3.86 X10*6/uL (4.20-5.50); Red Cell Distribution Width 12.8 % (11.0-16.0); White Blood Count 12.5 X10*3/uL (4.8-10.8)
[2021-04-01 10:14] LABS: COVID-19 Test Negative (Negative)
[2021-04-01 10:44] LABS: B Type Natriuretic Peptide 86 pg/mL (<100)
[2021-04-01 10:48] LABS: Anion Gap 15 (12-20); Blood Urea Nitrogen 8 mg/dL (9-16); Carbon Dioxide 22 mmol/L (22-29); Chloride 109 mmol/L (96-108); Creatinine Clr Calc Pharmacy 62.6; Estimated Glomerular Filt Rate > 60; Glucose Random 170 mg/dL (60-115); Magnesium 1.6 mg/dL (1.6-2.6); Potassium 4.5 mmol/L (3.3-5.1); Sodium 141 mmol/L (135-145)
[2021-04-01 10:57] LABS: Calcium 10.8 mg/dL (8.4-10.2)
[2021-04-01 11:23] VITALS: BP 140/67; PULSE 60; RESP 14; O2SAT 97
== END 2021-04-01 12:11 | disposition home or self-care (01) ==
PROVIDERS: Emergency Provider Emergency Medicine; PCP Physician Assistant
DX: J30.9 Allergic rhinitis, unspecified (principal); M79.10 Myalgia, unspecified site; N39.0 Urinary tract infection, site not specified; M79.605 Pain in left leg; M79.604 Pain in right leg; R25.2 Cramp and spasm; I10 Essential (primary) hypertension; E11.9 Type 2 diabetes mellitus without complications; Z79.84 Long term (current) use of oral hypoglycemic drugs; Z79.899 Other long term (current) drug therapy; Z20.822 Contact with and (suspected) exposure to COVID-19
CPT/HCPCS: 36415; 71045; 80048; 83735; 83880; 85025; 87635; 93005; 93970; 99284

== ENCOUNTER 2021-04-14 17:17 | Outpatient (REF) | payer MEDICARE, SELFPAY | END 2021-04-14 17:18 | disposition home or self-care (01) | LOC: HO.LNP 17:17 | PROVIDERS: Visit Provider Nurse Practitioner Family | DX: N39.0 Urinary tract infection, site not specified (principal) | CPT/HCPCS: 87086 ==

== ENCOUNTER 2021-05-06 13:04 | Outpatient (REF) | payer MEDICARE, SELFPAY | END 2021-05-06 13:05 | disposition home or self-care (01) | LOC: HO.LAB 13:04 | PROVIDERS: Visit Provider Nurse Practitioner Family | DX: N39.0 Urinary tract infection, site not specified (principal) | CPT/HCPCS: 87086 ==

== ENCOUNTER 2021-05-23 10:59 | Outpatient (REF) | payer MEDICARE, SELFPAY ==
[2021-05-23 11:52] LABS: Hematocrit 33.3 % (37-47); Hemoglobin 10.7 g/dl (12.0-16.0); Mean Corpuscular HGB Conc 32.1 g/dl (31.0-35.0); Mean Corpuscular Hemoglobin 27.1 pg (27.0-33.0); Mean Corpuscular Volume 84.3 fL (80-98); Mean Platelet Volume 10.4 fL (9.4-12.3); Platelet Count 191 X10*3/uL (160-400); Red Blood Count 3.95 X10*6/uL (4.20-5.50); Red Cell Distribution Width 13.1 % (11.0-16.0); White Blood Count 6.9 X10*3/uL (4.8-10.8)
[2021-05-23 12:28] LABS: TSH reflex Free T4 1.11 uIU/mL (0.32-4.0)
[2021-05-23 12:29] LABS: Glucose Urine UA NEG (NEG); Leukocyte Esterase Urine 1+ (NEG); Nitrite Urine NEG (NEG); Specific Gravity - Urine 1.015 (1.005-1.025); UACC Culture Trigger YES; Urine Blood NEG (NEG); Urine Ketones NEG (NEG); Urine Protein NEG (NEG-TRACE)
[2021-05-23 12:31] LABS: Appearance Urine HAZY; Color Urine YELLOW
[2021-05-23 13:10] LABS: Alanine Aminotransferase 12 U/L (0-31); Alkaline Phosphatase 53 U/L (39-117); Anion Gap 12 (12-20); Aspartate Amino Transferase 16 U/L (5-31); Bilirubin Total 0.4 mg/dL (0.0-1.0); Blood Urea Nitrogen 9 mg/dL (9-16); Calcium 9.6 mg/dL (8.4-10.2); Carbon Dioxide 27 mmol/L (22-29); Chloride 111 mmol/L (96-108); Cholesterol 141 mg/dL; Estimated Glomerular Filt Rate > 60; Glucose Fasting 118 mg/dL (60-99); HDL Cholesterol 46 mg/dL; LDL Cholesterol Calculated 71 mg/dl; Potassium 4.9 mmol/L (3.3-5.1); Sodium 145 mmol/L (135-145); Total Protein 6.2 g/dL (6.5-8.0); Triglycerides 121 mg/dL
[2021-05-23 13:16] LABS: RBC Urine 0-2 /HPF (0); Squamous Epithelial Cell Urine 1+ /LPF
== END 2021-05-23 11:00 | disposition home or self-care (01) ==
LOC: HO.LAB 10:59
PROVIDERS: Absent Provider Internal Medicine; PCP Physician Assistant; Visit Provider Physician Assistant
DX: E11.65 Type 2 diabetes mellitus with hyperglycemia (principal); I10 Essential (primary) hypertension
CPT/HCPCS: 36415; 80053; 80061; 81001; 84443; 85027; 87086

== ENCOUNTER 2021-05-27 17:07 | Emergency (ER) | payer MEDICARE, SELFPAY ==
[2021-05-27 17:28] VITALS: BP 113/60; PULSE 74; RESP 16; TEMP 36.9; O2SAT 95; BMI 30.1
--- NOTE | 2021-05-27 18:06 | ED.GENADULT ---
HPI - General Adult General Chief complaint: Back Pain/Injury <DEDE Romero - Last Filed: 05/27/21 19:14> Stated complaint: Sciatica <DEDE Romero - Last Filed: 05/27/21 19:14> Time Seen by Provider: 05/27/21 17:37 <DEDE Romero - Last Filed: 05/27/21 19:14> History of Present Illness HPI narrative: Patient complains of feeling some swelling behind her left knee which hurts a little bit as well as bilateral sciatica which is common for her and she feels like her sciatica is flaring a little bit, but is otherwise similar to her chronic sciatica back pain There is no weakness no incontinence no fever no chills no changes to bowel or bladder no difficulty breathing no shortness of breath no chest pain <DEDE Romero - Last Filed: 05/27/21 19:14> Related Data Home medications: Home Medications Medication Instructions Recorded Confirmed flu vacc [id number](65yr up)-PF 240 ml IM 08/12/20 04/14/21 mcg/0.7 mL intramuscular syringe levothyroxine 50 mcg tablet 50 mcg PO QAM 08/12/20 04/14/21 triamcinolone acetonide 0.1 % applic TOPICAL DAILY 08/12/20 04/14/21 topical cream latanoprost 0.005 % eye drops 1 drp OPHTHALMIC (EYE) BEDTIME 02/08/21 04/14/21 Previous Rx's Medication Instructions Recorded hydrocortisone 2.5 % topical cream 1 appl TOPICAL TID PRN #28 g 12/18/20 simvastatin 40 mg tablet 40 mg PO BEDTIME 90 Days #90 tab 01/02/21 metformin 500 mg tablet,extended 1,000 mg PO BID 30 Days #120 tab 01/11/21 release 24 hr diclofenac sodium 1 % topical gel 2 g TOPICAL QID #100 g 01/18/21 omeprazole 20 mg capsule,delayed 20 mg PO DAILY #90 cap 02/26/21 release lorazepam 0.5 mg tablet 0.5 mg PO BEDTIME PRN #30 tab 02/28/21 lisinopril 2.5 mg tablet 2.5 mg PO DAILY #90 tab 03/09/21 estradiol See Rx Instructions .ROUTE DAILY 03/17/21 30 Days #42.5 g estradiol 0.5 mg tablet 0.5 mg PO DAILY #90 tab 03/27/21 fluticasone propionate 50 1 spray INTRANASAL DAILY PRN #16 g 04/01/21 mcg/actuation nasal spray,suspension atenolol 25 mg tablet 12.5 mg PO DAILY #15 tab 04/14/21 clotrimazole 1 % vaginal cream 1 appful VAGINAL BEDTIME 7 Days 04/14/21 #45 g levofloxacin 750 mg tablet 750 mg PO DAILY #3 tab 05/06/21 tramadol 50 mg tablet See Rx Instructions PO .COMPLEX 05/08/21 PRN 10 Days #30 tab azithromycin 250 mg tablet See Rx Instructions PO .COMPLEX #6 05/24/21 tab glipizide 2.5 mg tablet, extended 2.5 mg PO DAILY #30 tab 05/24/21 release 24 hr cyclobenzaprine 5 mg tablet 5 mg PO TID PRN #14 tab 05/27/21 <DEDE Romero Last Filed: 05/27/21 19:14> Allergies/adverse reactions: Allergies Allergy/AdvReac Type Severity Reaction Status Date / Time amoxicillin [From Augmentin] Allergy Intermediate rash Verified 05/27/21 17:33 cefuroxime [From CEFTIN] Allergy Intermediate RASH Verified 05/27/21 17:33 clavulanic acid Allergy Intermediate rash Verified 05/27/21 17:33 [From Augmentin] doxycycline [DOXYCYCLINE] Allergy Unknown HIVES Verified 05/27/21 17:33 Sulfa (Sulfonamide Allergy Unknown rash Verified 05/27/21 17:33 Antibiotics) Celfain Allergy Unknown rash Uncoded 05/27/21 17:33 <DEDE Romero - Last Filed: 05/27/21 19:14> Review of Systems Review of Systems: Positive for painful swelling behind the left knee as well as a flare-up of chronic back pain Negatives are no fever no chills no dizziness no weakness no fainting no feeling faint no headache no neck pain no chest pain no shortness of breath no changes to bowel or bladder no incontinence no dysuria no frequency no skin rash no weakness no loss of sensation <DEDE Romero Last Filed: 05/27/21 19:14> PMFSH Past Medical History Source: nursing notes reviewed <DEDE Romero Last Filed: 05/27/21 19:14> Medical History: Medical History Cardiac arrhythmia Diabetes HTN (hypertension) Recurrent UTI <DEDE Romero - Last Filed: 05/27/21 19:14> Surgical History: Surgical History H/O: hysterectomy History of cardiac radiofrequency ablation <DEDE Romero - Last Filed: 05/27/21 19:14> Family History Family History: Family History Father CVD (cardiovascular disease) Mother No problems noted. <DEDE Romero - Last Filed: 05/27/21 19:14> Social History Social History: Social History Housing: House Alcohol intake: current Alcohol intake frequency: holidays/special occasions only Alcohol type: beer and wine Patient Tobacco Use Status: Former Tobacco user e-Cigarette/Vaping Use: Never Used Second Hand Smoke Exposure: Yes Advance Directives: No Advance Directives Information Provided: Yes service: No Current occupational status: retired <DEDE Romero - Last Filed: 05/27/21 19:14> Physical Exam Vital Signs: Vital Signs: Last Vital Signs Temp 98.5 F 05/27/21 17:28 Pulse 74 05/27/21 17:28 Resp 16 05/27/21 17:28 BP 113/60 05/27/21 17:28 Pulse Ox 95 05/27/21 17:28 Body Mass Index 30.1 <DEDE Romero - Last Filed: 05/27/21 19:14> Vital Signs: Last Vital Signs Temp 98.5 F 05/27/21 17:28 Pulse 74 05/27/21 17:28 Resp 16 05/27/21 17:28 BP 113/60 05/27/21 17:28 Pulse Ox 95 05/27/21 17:28 Body Mass Index 30.1 <Carlos Rosales NP - Last Filed: 05/27/21 19:44> General appearance no acute distress Head is normocephalic atraumatic Neck is supple Chest clear to auscultation bilateral The heart no murmur the abdomen soft nontender the back had lower lumbar bilateral tenderness, range of motion was good there is no focal bony tenderness there were no rashes no redness no wounds, no CVA tenderness The extremities the left lower leg had popliteal tenderness with a small area of swelling which could be a swollen vein, it was not red warm or tender there were no wounds no rashes, no edema and neurovascular intact distal Skin no rashes Neuro no gross motor or sensory deficit <DEDE Romero - Last Filed: 05/27/21 19:14> Course Course Course Narrative: Patient with popliteal pain and mild swelling was entered for an ultrasound but then we found out we do not have ultrasound available on the weekend so a D-dimer was ordered and if negative patient will be discharged home, if positive patient will be anticoagulated in return Saturday for ultrasound At 19:00 the case was signed out to physician physician assistant certified Bobby to follow lab results and dispo patient <DEDE Romero - Last Filed: 05/27/21 19:14> Reevaluation(s) Reevaluation #1: History of chronic pain in this region specifically sciatic nerve there is some mild popliteal pain there is small nodule consistent with lipoma otherwise no concerning symptoms for acute lower extremity infection, vascular disease or DVT. Homans negative. Furthermore D-dimer done this was negative. Will discharge home with supportive care, follow-up and return instructions. <Carlos Rosales NP - Last Filed: 05/27/21 19:44> Medical Decision Making Lab Data Result diagrams: : 05/27/21 18:54 05/27/21 18:54 <DEDE Romero - Last Filed: 05/27/21 19:14> Labs: Lab Results 05/27/21 05/27/21 05/27/21 Range/Units 18:54 18:54 18:54 WBC 8.4 (4.8-10.8) X10*3/uL RBC 4.08 L (4.20-5.50) X10*6/uL Hgb 11.1 L (12.0-16.0) g/dl Hct 34.0 L (37-47) % MCV 83.3 (80-98) fL MCH 27.2 (27.0-33.0) pg MCHC 32.6 (31.0-35.0) g/dl RDW 13.2 (11.0-16.0) % Plt Count 216 (160-400) X10*3/uL MPV 10.1 (9.4-12.3) fL Immature Gran % (Auto) 0.2 (0.0-0.4) % Neut % (Auto) 52.8 (45-73) % Lymph % (Auto) 35.1 (20-40) % Orange % (Auto) 6.7 (2-11) % Eos % (Auto) 5.0 H (0-4) % Baso % (Auto) 0.2 (0-2) % Lymph # (Auto) 3.0 (1.2-4.9) X10*3/uL Orange # (Auto) 0.6 (0.1-1.2) X10*3/uL Eos # (Auto) 0.4 (0.0-0.4) X10*3/uL Baso # (Auto) 0.0 (0.0-0.2) X10*3/uL Abs Immat Gran (auto) 0.02 (0.00-0.03) X10*3/uL Absolute Neuts (auto) 4.4 (2.0-8.3) X10*3/uL Absolute Nucleated RBC 0.000 (0.0-0.012) X10*3/uL Nucleated RBC % (auto) 0.0 (0.0-0.2) /100WBC D-Dimer < 200 NG/ML Sodium 143 (135-145) mmol/L Potassium 4.4 (3.3-5.1) mmol/L Chloride 110 H (96-108) mmol/L Carbon Dioxide 25 (22-29) mmol/L Anion Gap 12 (12-20) BUN 11 (9-16) mg/dL Creatinine 0.89 (0.5-1.4) mg/dL Estim Creat Clear Calc 57.0 Estimated GFR > 60 Random Glucose 110 D (60-115) mg/dL Calcium 9.7 (8.4-10.2) mg/dL <DEDE Romero - Last Filed: 05/27/21 19:14> Lab Results 05/27/21 05/27/21 05/27/21 Range/Units 18:54 18:54 18:54 WBC 8.4 (4.8-10.8) X10*3/uL RBC 4.08 L (4.20-5.50) X10*6/uL Hgb 11.1 L (12.0-16.0) g/dl Hct 34.0 L (37-47) % MCV 83.3 (80-98) fL MCH 27.2 (27.0-33.0) pg MCHC 32.6 (31.0-35.0) g/dl RDW 13.2 (11.0-16.0) % Plt Count 216 (160-400) X10*3/uL MPV 10.1 (9.4-12.3) fL Immature Gran % (Auto) 0.2 (0.0-0.4) % Neut % (Auto) 52.8 (45-73) % Lymph % (Auto) 35.1 (20-40) % Orange % (Auto) 6.7 (2-11) % Eos % (Auto) 5.0 H (0-4) % Baso % (Auto) 0.2 (0-2) % Lymph # (Auto) 3.0 (1.2-4.9) X10*3/uL Orange # (Auto) 0.6 (0.1-1.2) X10*3/uL Eos # (Auto) 0.4 (0.0-0.4) X10*3/uL Baso # (Auto) 0.0 (0.0-0.2) X10*3/uL Abs Immat Gran (auto) 0.02 (0.00-0.03) X10*3/uL Absolute Neuts (auto) 4.4 (2.0-8.3) X10*3/uL Absolute Nucleated RBC 0.000 (0.0-0.012) X10*3/uL Nucleated RBC % (auto) 0.0 (0.0-0.2) /100WBC D-Dimer < 200 NG/ML Sodium 143 (135-145) mmol/L Potassium 4.4 (3.3-5.1) mmol/L Chloride 110 H (96-108) mmol/L Carbon Dioxide 25 (22-29) mmol/L Anion Gap 12 (12-20) BUN 11 (9-16) mg/dL Creatinine 0.89 (0.5-1.4) mg/dL Estim Creat Clear Calc 57.0 Estimated GFR > 60 Random Glucose 110 D (60-115) mg/dL Calcium 9.7 (8.4-10.2) mg/dL <Carlos Rosales NP - Last Filed: 05/27/21 19:44> Discharge Plan Discharge Clinical Impression: Leg pain, left <DEDE Romero - Last Filed: 05/27/21 19:14> Patient Disposition: Home, Self-Care <DEDE Romero - Last Filed: 05/27/21 19:14> Additional Instructions: Gentle stretching, warm compress Taking medication prescribed Follow-up outpatient as discussed Return if any concerns worsening symptoms Thank you <DEDE Romero - Last Filed: 05/27/21 19:14> Prescriptions: New cyclobenzaprine 5 mg tablet 5 mg PO TID PRN (Reason: muscle spasm) Qty: 14 RF: 0 No Action simvastatin 40 mg tablet 40 mg PO BEDTIME 90 Days Qty: 90 RF: 1 metformin 500 mg tablet extended release 24 hr 1,000 mg PO BID 30 Days Qty: 120 RF: 4 omeprazole 20 mg capsule,delayed release(DR/EC) 20 mg PO DAILY Qty: 90 RF: 2 lisinopril 2.5 mg tablet 2.5 mg PO DAILY Qty: 90 RF: 2 estradiol 0.01 % (0.1 mg/gram) cream See Rx Instructions .Route DAILY 30 Days Qty: 42.5 RF: 2 estradiol 0.5 mg tablet 0.5 mg PO DAILY Qty: 90 RF: 0 tramadol 50 mg tablet See Rx Instructions PO .COMPLEX PRN (Reason: pain (scale score 7-10)) 10 Days Qty: 30 RF: 0 azithromycin 250 mg tablet See Rx Instructions PO .COMPLEX Qty: 6 RF: 0 glipizide 2.5 mg tablet extended release 24hr 2.5 mg PO DAILY Qty: 30 RF: 0 hydrocortisone 2.5 % cream 1 appl topical TID PRN (Reason: itching) Qty: 28 RF: 0 fluticasone propionate 50 mcg/actuation spray,suspension 1 spray intranasal DAILY PRN (Reason: allergy symptoms) Qty: 16 RF: 0 lorazepam 0.5 mg tablet 0.5 mg PO BEDTIME PRN (Reason: anxiety) Qty: 30 RF: 2 diclofenac sodium 1 % gel 2 g topical QID Qty: 100 RF: 0 clotrimazole 1 % cream 1 appful vaginal BEDTIME 7 Days Qty: 45 RF: 0 atenolol 25 mg tablet 12.5 mg PO DAILY Qty: 15 RF: 3 levofloxacin 750 mg tablet 750 mg PO DAILY Qty: 3 RF: 0 levothyroxine 50 mcg tablet 50 mcg PO QAM RF: 0 Fluzone HighDose Quad 20-21 PF 240 mcg/0.7 mL syringe IM RF: 0 triamcinolone acetonide 0.1 % cream topical DAILY RF: 0 latanoprost 0.005 % drops 1 drp ophthalmic (eye) BEDTIME RF: 0 <DEDE Romero - Last Filed: 05/27/21 19:14> Referrals: Sammy Cordova PA-C [Primary Care Provider] - 1 week <DEDE Romero - Last Filed: 05/27/21 19:14>
[2021-05-27 18:59] LABS: MANUAL DIFF FLAG NO
[2021-05-27 19:05] LABS: Basophils Percent Auto 0.2 % (0-2); Eosinophils Absolute Auto 0.4 X10*3/uL (0.0-0.4); Hemoglobin 11.1 g/dl (12.0-16.0); Imm Gran Abs Auto 0.02 X10*3/uL (0.00-0.03); Imm Gran Pct Auto 0.2 % (0.0-0.4); Lymphocytes Percent Auto 35.1 % (20-40); Mean Corpuscular HGB Conc 32.6 g/dl (31.0-35.0); Mean Corpuscular Hemoglobin 27.2 pg (27.0-33.0); Mean Corpuscular Volume 83.3 fL (80-98); Mean Platelet Volume 10.1 fL (9.4-12.3); Monocytes Absolute Auto 0.6 X10*3/uL (0.1-1.2); Monocytes Percent Auto 6.7 % (2-11); Neutrophils Absolute Auto 4.4 X10*3/uL (2.0-8.3); Neutrophils Percent Auto 52.8 % (45-73); Platelet Count 216 X10*3/uL (160-400); Red Blood Count 4.08 X10*6/uL (4.20-5.50); Red Cell Distribution Width 13.2 % (11.0-16.0); White Blood Count 8.4 X10*3/uL (4.8-10.8)
[2021-05-27 19:11] LABS: D Dimer < 200 NG/ML
[2021-05-27 19:31] LABS: Anion Gap 12 (12-20); Blood Urea Nitrogen 11 mg/dL (9-16); Calcium 9.7 mg/dL (8.4-10.2); Carbon Dioxide 25 mmol/L (22-29); Chloride 110 mmol/L (96-108); Estimated Glomerular Filt Rate > 60; Glucose Random 110 mg/dL (60-115); Potassium 4.4 mmol/L (3.3-5.1); Sodium 143 mmol/L (135-145)
== END 2021-05-27 20:16 | disposition home or self-care (01) ==
PROVIDERS: Physician Assistant Medical; Emergency Provider Emergency Medicine; PCP Physician Assistant
DX: M79.605 Pain in left leg (principal); G89.29 Other chronic pain; M54.5 Low back pain; E11.9 Type 2 diabetes mellitus without complications; I10 Essential (primary) hypertension; Z79.899 Other long term (current) drug therapy; Z79.84 Long term (current) use of oral hypoglycemic drugs
CPT/HCPCS: 36415; 80048; 85025; 85379; 99283

== ENCOUNTER 2021-05-29 16:55 | Emergency (ER) | payer MEDICARE, SELFPAY ==
--- NOTE | ~2021-05-29 | US_ITS ---
EXAMINATION: US VENOUS ULTRASOUND WITH DOPPLER LOWER EXTREMITY, LEFT CLINICAL INFORMATION: Left lower extremity edema COMPARISON: Bilateral DVT study 04/01/2021 TECHNIQUE: Ultrasound of the deep veins is performed from the hip to the calf with compression sonography and color and pulse Doppler assessment. Spectral analysis with color-flow imaging is performed. FINDINGS: There is normal venous compression and respiratory variation and augmented flow. The visualized common femoral vein, superficial femoral vein, profunda femoral vein, popliteal vein, and the trifurcation region shows no evidence of deep venous thrombosis. There is no significant popliteal fossa cyst. If the patient's symptoms persist, followup ultrasound in 5 days 7 days might be of value to exclude proximal propagation from a non-visualized calf vein. US/US venous duplex LE LT IMPRESSION: No DVT demonstrated in the left lower extremity.
[2021-05-29 17:14] VITALS: BP 156/68; PULSE 65; RESP 62; TEMP 36.8; O2SAT 97; BMI 37.8
--- NOTE | 2021-05-29 17:49 | ED.GENADULT ---
HPI - General Adult General Chief complaint: Extremity Injury, Lower Stated complaint: left leg swollen Time Seen by Provider: 05/29/21 17:21 Source: patient Mode of arrival: ambulatory Limitations: no limitations History of Present Illness HPI narrative: 70 y/o female history of HTN, DM, hypothyroidism, UTIs, chronic low back pain with sciatica who presents with ongoing painful and swollen area behind her left knee. She was here for the same two days ago, ultrasound was not available so a DDIMER was done which was negative. Her exam reported findings consistent iwth possible lipoma. She was discharged. She presents back for re-evaluation and ultrasound of the left leg. She denies chest pain or SOB. Of note she did have negative LE dopplers in March of this year. MD complaint: left leg pain Onset (ago): week(s) (1) Location: left and lower extremity Radiation: non-radiation Severity: moderate Quality: aching Pain Consistency: intermittent Relieving factors: none Exacerbating factors: movement Associated symptoms: denies other symptoms Treatments prior to arrival: none Related Data Home Medications Medication Instructions Recorded Confirmed flu vacc [id number](65yr up)-PF 240 ml IM 08/12/20 04/14/21 mcg/0.7 mL intramuscular syringe levothyroxine 50 mcg tablet 50 mcg PO QAM 08/12/20 04/14/21 triamcinolone acetonide 0.1 % applic TOPICAL DAILY 08/12/20 04/14/21 topical cream latanoprost 0.005 % eye drops 1 drp OPHTHALMIC (EYE) BEDTIME 02/08/21 04/14/21 Previous Rx's Medication Instructions Recorded hydrocortisone 2.5 % topical cream 1 appl TOPICAL TID PRN #28 g 12/18/20 simvastatin 40 mg tablet 40 mg PO BEDTIME 90 Days #90 tab 01/02/21 metformin 500 mg tablet,extended 1,000 mg PO BID 30 Days #120 tab 01/11/21 release 24 hr diclofenac sodium 1 % topical gel 2 g TOPICAL QID #100 g 01/18/21 omeprazole 20 mg capsule,delayed 20 mg PO DAILY #90 cap 02/26/21 release lorazepam 0.5 mg tablet 0.5 mg PO BEDTIME PRN #30 tab 02/28/21 lisinopril 2.5 mg tablet 2.5 mg PO DAILY #90 tab 03/09/21 estradiol See Rx Instructions .ROUTE DAILY 03/17/21 30 Days #42.5 g estradiol 0.5 mg tablet 0.5 mg PO DAILY #90 tab 03/27/21 fluticasone propionate 50 1 spray INTRANASAL DAILY PRN #16 g 04/01/21 mcg/actuation nasal spray,suspension atenolol 25 mg tablet 12.5 mg PO DAILY #15 tab 04/14/21 clotrimazole 1 % vaginal cream 1 appful VAGINAL BEDTIME 7 Days 04/14/21 #45 g levofloxacin 750 mg tablet 750 mg PO DAILY #3 tab 05/06/21 tramadol 50 mg tablet See Rx Instructions PO .COMPLEX 05/08/21 PRN 10 Days #30 tab azithromycin 250 mg tablet See Rx Instructions PO .COMPLEX #6 05/24/21 tab glipizide 2.5 mg tablet, extended 2.5 mg PO DAILY #30 tab 05/24/21 release 24 hr cyclobenzaprine 5 mg tablet 5 mg PO TID PRN #14 tab 05/27/21 ibuprofen 600 mg tablet 600 mg PO Q8H PRN #10 tab 05/29/21 Allergies Allergy/AdvReac Type Severity Reaction Status Date / Time amoxicillin [From Augmentin] Allergy Intermediate rash Verified 05/27/21 17:33 cefuroxime [From CEFTIN] Allergy Intermediate RASH Verified 05/27/21 17:33 clavulanic acid Allergy Intermediate rash Verified 05/27/21 17:33 [From Augmentin] doxycycline [DOXYCYCLINE] Allergy Unknown HIVES Verified 05/27/21 17:33 Sulfa (Sulfonamide Allergy Unknown rash Verified 05/27/21 17:33 Antibiotics) Celfain Allergy Unknown rash Uncoded 05/27/21 17:33 Review of Systems Review of Systems: Constitutional: No Fever, No Chills Cardiovascular: No Chest Pain, + Edema Respiratory: No Cough Gastrointestinal: No Nausea, No Vomiting, No Diarrhea, No abdominal Pain Musculoskeletal: + joint pain, + Myalgias Skin: No Skin Lesions, No rash Neuro: No Weakness, No Numbness, No Dizziness, No Headache Psych: + Anxiety/Panic, No Depression Heme/Lymph: No Bruising, No Lymphadenopathy PMFSH Past Medical History Attestation statement: The following information was validated with the patient. Medical History Cardiac arrhythmia Diabetes HTN (hypertension) Recurrent UTI Surgical History H/O: hysterectomy History of cardiac radiofrequency ablation Family History Family History Father CVD (cardiovascular disease) Mother No problems noted. Social History Social History Housing: House Alcohol intake: current Alcohol intake frequency: holidays/special occasions only Alcohol type: beer and wine Patient Tobacco Use Status: Former Tobacco user e-Cigarette/Vaping Use: Never Used Second Hand Smoke Exposure: Yes Advance Directives: No Advance Directives Information Provided: No service: No Current occupational status: retired Physical Exam Vital Signs: Vital Signs: Last Vital Signs Temp 98.3 F 05/29/21 17:14 Pulse 65 05/29/21 17:14 Resp 62 H 05/29/21 17:14 BP 156/68 H 05/29/21 17:14 Pulse Ox 97 05/29/21 17:14 Body Mass Index 37.8 Appearance: Alert. Oriented X3. No acute distress. HEENT: normal inspection CVS: Normal heart rate and rhythm. Pulses normal. Respiratory: No respiratory distress. Lungs CTAB Skin: Skin warm and dry. Normal skin color. Normal skin turgor. No rashes. Extremities: left knee with normal appearance, no anterior tenderness, normal ROM, posteriorly there is mild diffuse soft tissue tenderness and mild swelling, no palpable mass, no skin changes. Neuro: Oriented X 3. No motor deficit. No sensory deficit. Course Course Course Narrative: 70 y/o female presenting for evaluation of painful, swollen area behind her left knee. She was seen here for the same 2 days ago and had a negative DDIMER. Question of Avila's cyst vs lipoma in that area. No signs of infection. US pending. Reevaluation(s) Reevaluation #1: US negtive for DVT. She has no palpable mass behind her knee where she is tender. Will place in TRINITY wrap for compression and support. Will also start short course of NSAID. She has an appointment with her PCP tomorrow and has an orthopedic doctor at [facility] who she plans to follow up with. She is stable for discharge home with supportive care and outpatient follow up. Critical Care Time Critical Care Time Critical Care Time: No Discharge Plan Discharge Clinical Impression: Knee pain Qualifiers: Chronicity: acute Laterality: left Qualified Code(s): M25.562 - Pain in left knee Patient Disposition: Home, Self-Care Instructions: Knee Pain (ED) Additional Instructions: Your ultrasound today did not show any blood clots or cysts behind your knee. Recommend wearing the provided TRINITY wrap for compression and support to help with pain and swelling. Rest and elevate your knee when possible. Continue taking your previously prescribed Tramadol and Tylenol. Start taking the prescribed ibuprofen 600 mg every 8 hours - take with food. Do not combine this medication with any other NSAID like Aleve, Motrin, Advil. Follow up with your doctor tomorrow as scheduled. Recommend following up with your orthopedic doctor for further management. If you develop new or worsening symptoms call 911 or come back to the ER for further evaluation. Prescriptions: New ibuprofen 600 mg tablet 600 mg PO Q8H PRN (Reason: pain) Qty: 10 RF: 0 No Action simvastatin 40 mg tablet 40 mg PO BEDTIME 90 Days Qty: 90 RF: 1 metformin 500 mg tablet extended release 24 hr 1,000 mg PO BID 30 Days Qty: 120 RF: 4 omeprazole 20 mg capsule,delayed release(DR/EC) 20 mg PO DAILY Qty: 90 RF: 2 lisinopril 2.5 mg tablet 2.5 mg PO DAILY Qty: 90 RF: 2 estradiol 0.01 % (0.1 mg/gram) cream See Rx Instructions .Route DAILY 30 Days Qty: 42.5 RF: 2 estradiol 0.5 mg tablet 0.5 mg PO DAILY Qty: 90 RF: 0 tramadol 50 mg tablet See Rx Instructions PO .COMPLEX PRN (Reason: pain (scale score 7-10)) 10 Days Qty: 30 RF: 0 azithromycin 250 mg tablet See Rx Instructions PO .COMPLEX Qty: 6 RF: 0 glipizide 2.5 mg tablet extended release 24hr 2.5 mg PO DAILY Qty: 30 RF: 0 hydrocortisone 2.5 % cream 1 appl topical TID PRN (Reason: itching) Qty: 28 RF: 0 fluticasone propionate 50 mcg/actuation spray,suspension 1 spray intranasal DAILY PRN (Reason: allergy symptoms) Qty: 16 RF: 0 cyclobenzaprine 5 mg tablet 5 mg PO TID PRN (Reason: muscle spasm) Qty: 14 RF: 0 lorazepam 0.5 mg tablet 0.5 mg PO BEDTIME PRN (Reason: anxiety) Qty: 30 RF: 2 diclofenac sodium 1 % gel 2 g topical QID Qty: 100 RF: 0 clotrimazole 1 % cream 1 appful vaginal BEDTIME 7 Days Qty: 45 RF: 0 atenolol 25 mg tablet 12.5 mg PO DAILY Qty: 15 RF: 3 levofloxacin 750 mg tablet 750 mg PO DAILY Qty: 3 RF: 0 levothyroxine 50 mcg tablet 50 mcg PO QAM RF: 0 Fluzone HighDose Quad 20-21 PF 240 mcg/0.7 mL syringe IM RF: 0 triamcinolone acetonide 0.1 % cream topical DAILY RF: 0 latanoprost 0.005 % drops 1 drp ophthalmic (eye) BEDTIME RF: 0 Referrals: Sammy Cordova PA-C [Primary Care Provider] - 1 day Interventions: ED Discharge Assessment Last Done: 05/29/21 19:11 Discharge Date/Time: 05/29/21 19:14
== END 2021-05-29 19:14 | disposition home or self-care (01) ==
PROVIDERS: Emergency Provider Emergency Medicine; PCP Physician Assistant
DX: M25.562 Pain in left knee (principal); R22.42 Localized swelling, mass and lump, left lower limb; E11.9 Type 2 diabetes mellitus without complications; I10 Essential (primary) hypertension; Z87.440 Personal history of urinary (tract) infections; Z79.899 Other long term (current) drug therapy
CPT/HCPCS: 93971; 99283; 99284

== ENCOUNTER 2021-06-05 14:37 | Outpatient (REF) | payer MEDICARE, SELFPAY ==
--- NOTE | ~2021-06-05 | XR_ITS ---
EXAMINATION: XR KNEE, LEFT CLINICAL INFORMATION: Left knee pain. COMPARISON: None TECHNIQUE: Two views of the left knee. FINDINGS: There is moderate loss of medial and patellofemoral compartment joint space with moderate periarticular spurring. There is irregularity and a small defect along the articular surface of the medial femoral condyle. There are small loose bodies within the popliteal fossa. Mild anterior suprapatella spurring is seen with moderate suprapatellar joint effusion. XR/XR knee LT 2V IMPRESSION: 1. Moderate degenerative arthritic changes medial and lateral compartment. 2. There is a small bony defect along the medial femoral condyle with 2 small loose bodies in the popliteal fossa and moderate suprapatellar joint effusion.
== END 2021-06-05 14:38 | disposition home or self-care (01) ==
LOC: HO.XRAY 14:37
PROVIDERS: PCP Physician Assistant; Visit Provider Nurse Practitioner Family
DX: M25.562 Pain in left knee (principal)
CPT/HCPCS: 73560

== ENCOUNTER → 2021-06-06 12:56 | Outpatient (BNVA) | payer MEDICARE, SELFPAY | PROVIDERS: Visit Provider Orthopaedic Surgery | DX: M17.12 Unilateral primary osteoarthritis, left knee (principal) | CPT/HCPCS: 20610; 99202; J1040 ==

== ENCOUNTER 2021-06-15 17:11 | Outpatient (REF) | payer MEDICARE, SELFPAY | END 2021-06-15 17:12 | disposition home or self-care (01) | LOC: HO.LNP 17:11 | PROVIDERS: Visit Provider Physician Assistant | DX: N39.0 Urinary tract infection, site not specified (principal) | CPT/HCPCS: 87086 ==

== ENCOUNTER 2021-07-12 17:43 | Emergency (ER) | payer MEDICARE, SELFPAY ==
[2021-07-12 18:30] VITALS: BP 146/66; PULSE 72; RESP 18; O2SAT 96; BMI 30.1
[2021-07-12 19:44] LABS: Appearance Urine CLEAR; Color Urine YELLOW; Glucose Urine UA NEG (NEG); Leukocyte Esterase Urine NEG (NEG); Nitrite Urine POS (NEG); Specific Gravity - Urine <= 1.005 (1.005-1.025); UACC Culture Trigger YES; Urine Blood NEG (NEG); Urine Ketones NEG (NEG); Urine Protein NEG (NEG-TRACE)
--- NOTE | 2021-07-12 19:54 | ED.GENADULT ---
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 of the knee also patient has left sciatic pain which is also chronic no fever no chills no urinary complaints at this time patient was told by orthopedics to get the knee replacement done but she refused at this time patient already had cortisone shot in the knee before patient taking tramadol for chronic pain Related Data Home Medications Medication Instructions Recorded Confirmed levothyroxine 50 mcg tablet 50 mcg PO QAM 08/12/20 06/15/21 triamcinolone acetonide 0.1 % applic TOPICAL DAILY 08/12/20 06/15/21 topical cream latanoprost 0.005 % eye drops 1 drp OPHTHALMIC (EYE) BEDTIME 02/08/21 06/15/21 Previous Rx's Medication Instructions Recorded hydrocortisone 2.5 % topical cream 1 appl TOPICAL TID PRN #28 g 12/18/20 diclofenac sodium 1 % topical gel 2 g TOPICAL QID #100 g 01/18/21 omeprazole 20 mg capsule,delayed 20 mg PO DAILY #90 cap 02/26/21 release estradiol See Rx Instructions .ROUTE DAILY 03/17/21 30 Days #42.5 g fluticasone propionate 50 1 spray INTRANASAL DAILY PRN #16 g 04/01/21 mcg/actuation nasal spray,suspension clotrimazole 1 % vaginal cream 1 appful VAGINAL BEDTIME 7 Days 04/14/21 #45 g glipizide 2.5 mg tablet, extended 2.5 mg PO DAILY #30 tab 05/24/21 release 24 hr lidocaine HCl 4 % topical cream 1 appl TOPICAL BID PRN #120 g 05/30/21 (Aspercreme (lidocaine HCl)) lisinopril 2.5 mg tablet 2.5 mg PO DAILY #90 tab 05/30/21 lorazepam 0.5 mg tablet 0.5 mg PO BEDTIME PRN #30 tab 05/30/21 metformin 500 mg tablet,extended 1,000 mg PO BID 30 Days #120 tab 05/30/21 release 24 hr ibuprofen 600 mg tablet 600 mg PO Q8H PRN #30 tab 06/14/21 estradiol 0.5 mg tablet 0.5 mg PO DAILY #90 tab 06/15/21 nitrofurantoin 1 cap PO ONCE 30 Days #30 cap 06/15/21 monohydrate/macrocrystals 100 mg capsule atenolol 25 mg tablet 12.5 mg PO DAILY #15 tab 07/03/21 ibuprofen 600 mg tablet 600 mg PO Q8H #90 tab 07/03/21 tramadol 50 mg tablet 50 mg PO BID PRN 15 Days #30 tab 07/03/21 simvastatin 40 mg tablet 40 mg PO BEDTIME 90 Days #90 tab 07/04/21 cyclobenzaprine 5 mg tablet 5 mg PO TID PRN #20 tab 07/12/21 Allergies Allergy/AdvReac Type Severity Reaction Status Date / Time amoxicillin [From Augmentin] Allergy Intermediate rash Verified 06/15/21 12:10 cefuroxime [From CEFTIN] Allergy Intermediate RASH Verified 06/15/21 12:10 clavulanic acid Allergy Intermediate rash Verified 06/15/21 12:10 [From Augmentin] doxycycline [DOXYCYCLINE] Allergy Unknown HIVES Verified 06/15/21 12:10 Sulfa (Sulfonamide Allergy Unknown rash Verified 06/15/21 12:10 Antibiotics) Celfain Allergy Unknown rash Uncoded 05/30/21 11:54 Review of Systems Review of Systems: Yes all other systems are reviewed and are negative PMFSH Past Medical History Medical History Acute sinusitis Cardiac arrhythmia Chest pain Diabetes Dysuria Dysuria Flank pain HTN (hypertension) Left knee pain Post-menopausal Recurrent UTI Rib pain on right side Sinusitis Urinary frequency Urinary tract infection Yeast infection of the vagina Surgical History H/O: hysterectomy History of cardiac radiofrequency ablation Family History Family History Father CVD (cardiovascular disease) Mother No problems noted. Social History Social History Housing: House Alcohol intake: current Alcohol intake frequency: holidays/special occasions only Alcohol type: beer and wine Patient Tobacco Use Status: Former Tobacco user e-Cigarette/Vaping Use: Never Used Second Hand Smoke Exposure: Yes Advance Directives: No Advance Directives Information Provided: No service: No Current occupational status: retired Physical Exam Vital Signs: Vital Signs: Last Vital Signs Temp 98.8 F 07/12/21 20:06 Pulse 72 07/12/21 18:30 Resp 16 07/12/21 20:06 BP 167/72 H 07/12/21 20:06 Pulse Ox 96 07/12/21 18:30 Body Mass Index 30.1 Const: General: comfortable and no acute distress Orientation/consciousness: patient oriented x3 HENMT: Head: Yes normocephalic and Yes atraumatic Eyes: General: appearance normal, both eyes and all related structures Neck: Neck: Yes full ROM Resp: Effort & Inspection: normal respiratory effort Auscultation: clear to auscultation bilaterally Cardio: Palpation: normal PMI Rate: regular rate Rhythm: regular rhythm Heart sounds: S1 normal heart sound present and S2 normal heart sound present GI: Inspection: Yes normal to inspection Palpation (GI): Soft to palpation and nontender : General: Yes no CVA tenderness Back/Spine/Pelvis: Back: no CVA tenderness Thoracic/Lumbar Spine: thoracic and lumbar spine normal to inspection, paraspinal muscle tenderness, thoraco-lumbar spasm, No thoracic spinal tenderness, No lumbar spinal tenderness and No straight leg raise positive Back/spine/pelvis image: 1. Diffuse tenderness Neuro: General: patient oriented x3, gait normal and no focal motor deficits Extrem: General: No calf tenderness (Caryn sign negative) Knee images: 1. Diffuse tenderness of the knee joint Randy anterior drawer sign negative slight amount of fusion. Medical Decision Making Lab Data Labs: Lab Results 07/12/21 Range/Units 19:36 Urine Color YELLOW Urine Appearance CLEAR Urine pH 6.0 (5.0-8.0) Ur Specific [place] <= 1.005 (1.005-1.025) Urine Protein NEG (NEG-TRACE) MG/DL Urine Glucose (UA) NEG (NEG) MG/DL Urine Ketones NEG (NEG) MG/DL Urine Blood NEG (NEG) Urine Nitrite POS H (NEG) Ur Leukocyte Esterase NEG (NEG) Urine RBC 0 (0) /HPF Urine WBC 0 (0-4) /HPF Ur Squamous Epith Cells 1+ /LPF Urine Bacteria TRACE /LPF Discharge Plan Discharge Clinical Impression: Left knee pain Qualifiers: Chronicity: chronic Qualified Code(s): M25.562 - Pain in left knee Patient Disposition: Home, Self-Care Instructions: Knee Pain (ED) Additional Instructions: Wear Manish wrap to left knee, rest to your left knee, do not go upstairs or downstairs very often Continue pain medication start taking muscle relaxant for your back pain Prescriptions: New cyclobenzaprine 5 mg tablet 5 mg PO TID PRN (Reason: muscle spasm) Qty: 20 RF: 0 No Action omeprazole 20 mg capsule,delayed release(DR/EC) 20 mg PO DAILY Qty: 90 RF: 2 estradiol 0.01 % (0.1 mg/gram) cream See Rx Instructions .Route DAILY 30 Days Qty: 42.5 RF: 2 glipizide 2.5 mg tablet extended release 24hr 2.5 mg PO DAILY Qty: 30 RF: 0 lorazepam 0.5 mg tablet 0.5 mg PO BEDTIME PRN (Reason: anxiety) Qty: 30 RF: 2 lidocaine HCl [Aspercreme (lidocaine HCl)] 4 % cream 1 appl topical BID PRN (Reason: pain) Qty: 120 RF: 0 ibuprofen 600 mg tablet 600 mg PO Q8H PRN (Reason: pain) Qty: 30 RF: 0 atenolol 25 mg tablet 12.5 mg PO DAILY Qty: 15 RF: 3 ibuprofen 600 mg tablet 600 mg PO Q8H Qty: 90 RF: 2 tramadol 50 mg tablet 50 mg PO BID PRN (Reason: pain (scale score 7-10)) 15 Days Qty: 30 RF: 0 simvastatin 40 mg tablet 40 mg PO BEDTIME 90 Days Qty: 90 RF: 1 hydrocortisone 2.5 % cream 1 appl topical TID PRN (Reason: itching) Qty: 28 RF: 0 fluticasone propionate 50 mcg/actuation spray,suspension 1 spray intranasal DAILY PRN (Reason: allergy symptoms) Qty: 16 RF: 0 diclofenac sodium 1 % gel 2 g topical QID Qty: 100 RF: 0 clotrimazole 1 % cream 1 appful vaginal BEDTIME 7 Days Qty: 45 RF: 0 lisinopril 2.5 mg tablet 2.5 mg PO DAILY Qty: 90 RF: 2 metformin 500 mg tablet extended release 24 hr 1,000 mg PO BID 30 Days Qty: 120 RF: 4 levothyroxine 50 mcg tablet 50 mcg PO QAM RF: 0 triamcinolone acetonide 0.1 % cream topical DAILY RF: 0 nitrofurantoin monohyd/m-cryst 100 mg capsule 1 cap PO ONCE 30 Days Qty: 30 RF: 1 estradiol 0.5 mg tablet 0.5 mg PO DAILY Qty: 90 RF: 0 latanoprost 0.005 % drops 1 drp ophthalmic (eye) BEDTIME RF: 0
[2021-07-12 20:04] LABS: Bacteria Urine TRACE /LPF; RBC Urine 0 /HPF (0); Squamous Epithelial Cell Urine 1+ /LPF; WBC Urine 0 /HPF (0-4)
[2021-07-12 20:06] VITALS: BP 167/72; RESP 16; TEMP 37.1
--- NOTE | 2021-07-12 20:09 | PC.NURSE ---
at bed side for primary eval.
--- NOTE | 2021-07-12 20:20 | PC.NURSE ---
Manish wrap applied to left knee. Pt requesting a Lidocaine patch prior to discharge.
[2021-07-12] MEDS: Lidocaine 4 % Patch ADH..PATCH 1 PATCH TRANSDERMA (20:30)
== END 2021-07-12 20:44 | disposition home or self-care (01) ==
PROVIDERS: Emergency Provider Internal Medicine; PCP Physician Assistant
DX: M25.562 Pain in left knee (principal); R35.0 Frequency of micturition; Z87.891 Personal history of nicotine dependence; Z79.899 Other long term (current) drug therapy
CPT/HCPCS: 81001; 87086; 99283; 99284

== ENCOUNTER → 2021-07-14 10:31 | Outpatient (BNVA) | payer MEDICARE, SELFPAY | PROVIDERS: PCP Physician Assistant; Visit Provider Urology ==

== ENCOUNTER 2021-07-14 23:32 | Emergency (ER) | payer MEDICARE, SELFPAY ==
[2021-07-14 23:47] VITALS: BP 169/69; PULSE 103; RESP 18; TEMP 36.7; O2SAT 97; BMI 30.1
[2021-07-15 01:40] LABS: MANUAL DIFF FLAG NO
[2021-07-15 01:47] LABS: Basophils Percent Auto 0.3 % (0-2); Eosinophils Absolute Auto 0.2 X10*3/uL (0.0-0.4); Eosinophils Percent Auto 2.4 % (0-4); Hematocrit 34.7 % (37-47); Hemoglobin 11.5 g/dl (12.0-16.0); Imm Gran Abs Auto 0.02 X10*3/uL (0.00-0.03); Imm Gran Pct Auto 0.3 % (0.0-0.4); Lymphocytes Absolute Auto 2.3 X10*3/uL (1.2-4.9); Lymphocytes Percent Auto 30.8 % (20-40); Mean Corpuscular HGB Conc 33.1 g/dl (31.0-35.0); Mean Corpuscular Hemoglobin 27.5 pg (27.0-33.0); Mean Platelet Volume 10.2 fL (9.4-12.3); Monocytes Absolute Auto 0.5 X10*3/uL (0.1-1.2); Monocytes Percent Auto 6.4 % (2-11); Neutrophils Absolute Auto 4.5 X10*3/uL (2.0-8.3); Neutrophils Percent Auto 59.8 % (45-73); Platelet Count 205 X10*3/uL (160-400); Red Blood Count 4.18 X10*6/uL (4.20-5.50); Red Cell Distribution Width 13.4 % (11.0-16.0); White Blood Count 7.5 X10*3/uL (4.8-10.8)
[2021-07-15 01:55] LABS: Appearance Urine CLEAR; Color Urine DK YELLOW; Glucose Urine UA NEG (NEG); Leukocyte Esterase Urine NEG (NEG); Nitrite Urine POS (NEG); PH 5.5 (5.0-8.0); Specific Gravity - Urine <= 1.005 (1.005-1.025); UACC Culture Trigger YES; Urine Blood NEG (NEG); Urine Ketones NEG (NEG); Urine Protein NEG (NEG-TRACE)
[2021-07-15 02:01] LABS: Mucus Urine TRACE /LPF; RBC Urine 0 /HPF (0); Squamous Epithelial Cell Urine 1+ /LPF; WBC Urine 0-2 /HPF (0-4)
[2021-07-15 02:02] LABS: Alanine Aminotransferase 18 U/L (0-31); Albumin Level 4.6 g/dL (3.5-5.0); Alkaline Phosphatase 68 U/L (39-117); Anion Gap 14 (12-20); Aspartate Amino Transferase 22 U/L (5-31); Bilirubin Total 0.2 mg/dL (0.0-1.0); Blood Urea Nitrogen 12 mg/dL (9-16); Calcium 9.9 mg/dL (8.4-10.2); Carbon Dioxide 25 mmol/L (22-29); Chloride 107 mmol/L (96-108); Estimated Glomerular Filt Rate 59; Glucose Random 150 mg/dL (60-115); Potassium 4.1 mmol/L (3.3-5.1); Sodium 142 mmol/L (135-145); Total Protein 7.2 g/dL (6.5-8.0)
[2021-07-15 02:08] VITALS: BP 149/66; PULSE 59; RESP 16; TEMP 36.7; O2SAT 97
--- NOTE | 2021-07-15 02:36 | ECG_ITS ---
Test Reason : DIZZINESS Blood Pressure : / mmHG Vent. Rate : 069 BPM Atrial Rate : 069 BPM P-R Int : 190 ms QRS Dur : 078 ms QT Int : 402 ms P-R-T Axes : 068 026 044 degrees QTc Int : 430 ms Sinus rhythm with Premature atrial complexes Otherwise normal ECG When compared with ECG of 01-APR-2021 09:44, No significant change was found Referred By: Sharon Kuhn Electronically Signed By:OSMEL GIBSON
--- NOTE | 2021-07-15 02:36 | ED_ITS ---
HPI - General Adult General Chief complaint: General Medical Stated complaint: Feeling unwell Time Seen by Provider: 07/15/21 01:13 Source: patient Mode of arrival: ambulatory History of Present Illness HPI narrative: 70-year-old female who presents with multiple concerns regarding taking her tramadol tonight then feeling mildly dizzy without hearing/vision/speech changes. Patient states that she was evaluated by her urologist today for a why she continues to have urinary tract infections. She also complaints of repeat left knee pain and swelling as well as bladder pain. On review of patient's documentation the microbiology results from her last urinalysis are negative for evidence to suggest acute UTI. Related Data Home Medications Medication Instructions Recorded Confirmed levothyroxine 50 mcg tablet 50 mcg PO QAM 08/12/20 06/15/21 triamcinolone acetonide 0.1 % applic TOPICAL DAILY 08/12/20 06/15/21 topical cream latanoprost 0.005 % eye drops 1 drp OPHTHALMIC (EYE) BEDTIME 02/08/21 06/15/21 Previous Rx's Medication Instructions Recorded hydrocortisone 2.5 % topical cream 1 appl TOPICAL TID PRN #28 g 12/18/20 diclofenac sodium 1 % topical gel 2 g TOPICAL QID #100 g 01/18/21 omeprazole 20 mg capsule,delayed 20 mg PO DAILY #90 cap 02/26/21 release estradiol See Rx Instructions .ROUTE DAILY 03/17/21 30 Days #42.5 g fluticasone propionate 50 1 spray INTRANASAL DAILY PRN #16 g 04/01/21 mcg/actuation nasal spray,suspension clotrimazole 1 % vaginal cream 1 appful VAGINAL BEDTIME 7 Days 04/14/21 #45 g glipizide 2.5 mg tablet, extended 2.5 mg PO DAILY #30 tab 05/24/21 release 24 hr lidocaine HCl 4 % topical cream 1 appl TOPICAL BID PRN #120 g 05/30/21 (Aspercreme (lidocaine HCl)) lisinopril 2.5 mg tablet 2.5 mg PO DAILY #90 tab 05/30/21 lorazepam 0.5 mg tablet 0.5 mg PO BEDTIME PRN #30 tab 05/30/21 metformin 500 mg tablet,extended 1,000 mg PO BID 30 Days #120 tab 05/30/21 release 24 hr ibuprofen 600 mg tablet 600 mg PO Q8H PRN #30 tab 06/14/21 estradiol 0.5 mg tablet 0.5 mg PO DAILY #90 tab 06/15/21 nitrofurantoin 1 cap PO ONCE 30 Days #30 cap 06/15/21 monohydrate/macrocrystals 100 mg capsule atenolol 25 mg tablet 12.5 mg PO DAILY #15 tab 07/03/21 ibuprofen 600 mg tablet 600 mg PO Q8H #90 tab 07/03/21 tramadol 50 mg tablet 50 mg PO BID PRN 15 Days #30 tab 07/03/21 simvastatin 40 mg tablet 40 mg PO BEDTIME 90 Days #90 tab 07/04/21 cyclobenzaprine 5 mg tablet 5 mg PO TID PRN #20 tab 07/12/21 levofloxacin 500 mg tablet 500 mg PO DAILY 7 Days #7 tab 07/14/21 Allergies Allergy/AdvReac Type Severity Reaction Status Date / Time amoxicillin [From Augmentin] Allergy Intermediate rash Verified 06/15/21 12:10 cefuroxime [From CEFTIN] Allergy Intermediate RASH Verified 06/15/21 12:10 clavulanic acid Allergy Intermediate rash Verified 06/15/21 12:10 [From Augmentin] doxycycline [DOXYCYCLINE] Allergy Unknown HIVES Verified 06/15/21 12:10 Sulfa (Sulfonamide Allergy Unknown rash Verified 06/15/21 12:10 Antibiotics) Celfain Allergy Unknown rash Uncoded 05/30/21 11:54 Review of Systems Review of Systems: Pertinent positives and negatives as stated in HPI 10 point review of systems is otherwise negative. [facility] Past Medical History Medical History Acute sinusitis Cardiac arrhythmia Chest pain Diabetes Dysuria Dysuria Flank pain HTN (hypertension) Left knee pain Post-menopausal Recurrent UTI Rib pain on right side Sinusitis Urinary frequency Urinary tract infection Yeast infection of the vagina Surgical History H/O: hysterectomy History of cardiac radiofrequency ablation Family History Family History Father CVD (cardiovascular disease) Mother No problems noted. Social History Social History Housing: House Alcohol intake: current Alcohol intake frequency: holidays/special occasions only Alcohol type: beer and wine Patient Tobacco Use Status: Former Tobacco user e-Cigarette/Vaping Use: Never Used Second Hand Smoke Exposure: Yes Advance Directives: No service: No Current occupational status: retired Physical Exam Vital Signs: Vital Signs: Last Vital Signs Temp 98.0 F 07/15/21 02:08 Pulse 59 07/15/21 02:08 Resp 16 07/15/21 02:08 BP 149/66 H 07/15/21 02:08 Pulse Ox 97 07/15/21 02:08 Body Mass Index 30.1 VITAL SIGNS: Reviewed. GENERAL: Well developed, well nourished, in no acute distress. HEAD: Normocephalic/atraumatic EYES: PERRLA, EOMI EARS: Ext canals without abnormality OROPHARYNX: no oral lesions noted, posterior pharynx clear NECK: Supple, no adenopathy LUNGS: Normal breath sounds. No adventitious sounds or accessory muscle use. SpO2<97> CARDIOVASCULAR: Regular rate and rhythm without noted murmurs, no JVD or lower extremity edema. ABDOMEN: Soft, non-tender, non-distended with bowel sounds. SKIN: Inspection of the skin reveals no rashes NEUROLOGIC: Alert and oriented x 4. Strength and sensation to light touch were grossly intact x 4, no facial asymmetry, cranial nerves 2-12 are grossly intact, no pronator drift Course Course Course Narrative: 70-year-old female who presents with history and clinical presentation suggestive of possible medication interactions with the Levaquin. Patient was directed to stop taking the Levaquin as there is no evidence on urine culture of urinary tract infection. In addition on review of all investigations there are no acute findings to include patient is concerned regarding her heart rhythm and EKG was completed and is without acute changes when compared to prior from March of this year. She denies any chest pain or palpitations. There is no evidence of any new infection or anemia. Patient was strongly reassured and encouraged to continue her follow-up with Urology as well as her primary care doctor. Patient was discharged in stable condition with strict instructions to stop taking the Levaquin and to discuss her tramadol dosing with her primary care provider. Medical Decision Making Lab Data Result diagrams: 07/15/21 01:28 07/15/21 01:28 Labs: Lab Results 07/15/21 07/15/21 07/15/21 Range/Units 01:28 01:28 01:48 WBC 7.5 (4.8-10.8) X10*3/uL RBC 4.18 L (4.20-5.50) X10*6/uL Hgb 11.5 L (12.0-16.0) g/dl Hct 34.7 L (37-47) % MCV 83.0 (80-98) fL MCH 27.5 (27.0-33.0) pg MCHC 33.1 (31.0-35.0) g/dl RDW 13.4 (11.0-16.0) % Plt Count 205 (160-400) X10*3/uL MPV 10.2 (9.4-12.3) fL Immature Gran % (Auto) 0.3 (0.0-0.4) % Neut % (Auto) 59.8 (45-73) % Lymph % (Auto) 30.8 (20-40) % [place] % (Auto) 6.4 (2-11) % Eos % (Auto) 2.4 (0-4) % Baso % (Auto) 0.3 (0-2) % Lymph # (Auto) 2.3 (1.2-4.9) X10*3/uL [place] # (Auto) 0.5 (0.1-1.2) X10*3/uL Eos # (Auto) 0.2 (0.0-0.4) X10*3/uL Baso # (Auto) 0.0 (0.0-0.2) X10*3/uL Abs Immat Gran (auto) 0.02 (0.00-0.03) X10*3/uL Absolute Neuts (auto) 4.5 (2.0-8.3) X10*3/uL Absolute Nucleated RBC 0.000 (0.0-0.012) X10*3/uL Nucleated RBC % (auto) 0.0 (0.0-0.2) /100WBC Sodium 142 (135-145) mmol/L Potassium 4.1 (3.3-5.1) mmol/L Chloride 107 (96-108) mmol/L Carbon Dioxide 25 (22-29) mmol/L Anion Gap 14 (12-20) BUN 12 (9-16) mg/dL Creatinine 0.94 (0.5-1.4) mg/dL Estim Creat Clear Calc 54.0 Estimated GFR 59 Random Glucose 150 H (60-115) mg/dL Calcium 9.9 (8.4-10.2) mg/dL Total Bilirubin 0.2 (0.0-1.0) mg/dL AST 22 (5-31) U/L ALT 18 (0-31) U/L Alkaline Phosphatase 68 D (39-117) U/L Total Protein 7.2 (6.5-8.0) g/dL Albumin 4.6 (3.5-5.0) g/dL Urine Color DK YELLOW Urine Appearance CLEAR Urine pH 5.5 (5.0-8.0) Ur Specific [place] <= 1.005 (1.005-1.025) Urine Protein NEG (NEG-TRACE) MG/DL Urine Glucose (UA) NEG (NEG) MG/DL Urine Ketones NEG (NEG) MG/DL Urine Blood NEG (NEG) Urine Nitrite POS H (NEG) Ur Leukocyte Esterase NEG (NEG) Urine RBC 0 (0) /HPF Urine WBC 0-2 (0-4) /HPF Ur Squamous Epith Cells 1+ /LPF Urine Bacteria NONE /LPF Urine Mucus TRACE /LPF ECG Data Attestation: I personally reviewed and interpreted this ECG as follows: Prior ECG tracings: available for review (04/01/2021 no acute changes on comparison) Interpretation: Sinus rhythm with PACs, HR-69, no STEMI, AL/QRS/QTC are within normal limits. Discharge Plan Discharge Clinical Impression: Feeling weak, Knee pain Patient Disposition: Home, Self-Care Instructions: Knee Pain (ED), Weakness (ED) Additional Instructions: STOP taking the Levaquin (levofloxacin) as this medication may be interacting with your other medications. 1. Resume the remaining home medications as prescribed. 2. Follow-up with your primary care provider on Saturday morning for re-evaluation and discussing regarding your tramadol dose. Return to the ER for acute worsening of your symptoms. Prescriptions: No Action omeprazole 20 mg capsule,delayed release(DR/EC) 20 mg PO DAILY Qty: 90 RF: 2 estradiol 0.01 % (0.1 mg/gram) cream See Rx Instructions .Route DAILY 30 Days Qty: 42.5 RF: 2 glipizide 2.5 mg tablet extended release 24hr 2.5 mg PO DAILY Qty: 30 RF: 0 lorazepam 0.5 mg tablet 0.5 mg PO BEDTIME PRN (Reason: anxiety) Qty: 30 RF: 2 lidocaine HCl [Aspercreme (lidocaine HCl)] 4 % cream 1 appl topical BID PRN (Reason: pain) Qty: 120 RF: 0 ibuprofen 600 mg tablet 600 mg PO Q8H PRN (Reason: pain) Qty: 30 RF: 0 atenolol 25 mg tablet 12.5 mg PO DAILY Qty: 15 RF: 3 ibuprofen 600 mg tablet 600 mg PO Q8H Qty: 90 RF: 2 tramadol 50 mg tablet 50 mg PO BID PRN (Reason: pain (scale score 7-10)) 15 Days Qty: 30 RF: 0 simvastatin 40 mg tablet 40 mg PO BEDTIME 90 Days Qty: 90 RF: 1 hydrocortisone 2.5 % cream 1 appl topical TID PRN (Reason: itching) Qty: 28 RF: 0 fluticasone propionate 50 mcg/actuation spray,suspension 1 spray intranasal DAILY PRN (Reason: allergy symptoms) Qty: 16 RF: 0 cyclobenzaprine 5 mg tablet 5 mg PO TID PRN (Reason: muscle spasm) Qty: 20 RF: 0 diclofenac sodium 1 % gel 2 g topical QID Qty: 100 RF: 0 clotrimazole 1 % cream 1 appful vaginal BEDTIME 7 Days Qty: 45 RF: 0 lisinopril 2.5 mg tablet 2.5 mg PO DAILY Qty: 90 RF: 2 metformin 500 mg tablet extended release 24 hr 1,000 mg PO BID 30 Days Qty: 120 RF: 4 levothyroxine 50 mcg tablet 50 mcg PO QAM RF: 0 triamcinolone acetonide 0.1 % cream topical DAILY RF: 0 nitrofurantoin monohyd/m-cryst 100 mg capsule 1 cap PO ONCE 30 Days Qty: 30 RF: 1 estradiol 0.5 mg tablet 0.5 mg PO DAILY Qty: 90 RF: 0 latanoprost 0.005 % drops 1 drp ophthalmic (eye) BEDTIME RF: 0 levofloxacin 500 mg tablet 500 mg PO DAILY 7 Days Qty: 7 RF: 0 Referrals: Sammy Cordova PA-C [Primary Care Provider] - 2 days (Please re-evaluate the patient's tramadol dosing as well as complaints of weakness.)
== END 2021-07-15 03:03 | disposition home or self-care (01) ==
PROVIDERS: Emergency Provider Student in an Organized Health Care Education/Training Program; PCP Physician Assistant
DX: R42 Dizziness and giddiness (principal); M25.562 Pain in left knee; M25.561 Pain in right knee; R53.1 Weakness; Z79.899 Other long term (current) drug therapy; Z87.891 Personal history of nicotine dependence
CPT/HCPCS: 36415; 80053; 81001; 85025; 87086; 93005; 99283; 99284

== ENCOUNTER 2021-07-18 07:55 | Outpatient (REF) | payer MEDICARE, SELFPAY ==
--- NOTE | ~2021-07-18 | XR_ITS ---
EXAMINATION: XR KNEE, LEFT XR KNEE AP STANDING CLINICAL INFORMATION: Pain. COMPARISON: Radiograph dated 06/05/2021. TECHNIQUE: AP and lateral views of the left knee. AP bilateral standing view of the knees was obtained. FINDINGS: There is marked asymmetric narrowing of the medial joint space compartment of the left knee, with a secondary varus configuration. The lateral and patellofemoral joint space compartments are well-maintained. There is tricompartment peripheral osteophyte formation. No fracture or dislocation is seen. There is no significant left knee joint effusion. No foreign body is seen. The lateral and medial joint space compartments of the right knee are well-maintained. There is minimal peripheral osteophyte formation of the medial joint space compartment. XR/XR knee LT 2V IMPRESSION: There is tricompartment osteoarthritic change of the left knee, most pronounced of the medial joint space compartment, where it is severe. There is a secondary varus configuration.
--- NOTE | ~2021-07-18 | XR_ITS ---
EXAMINATION: XR KNEE, LEFT XR KNEE AP STANDING CLINICAL INFORMATION: Pain. COMPARISON: Radiograph dated 06/05/2021. TECHNIQUE: AP and lateral views of the left knee. AP bilateral standing view of the knees was obtained. FINDINGS: There is marked asymmetric narrowing of the medial joint space compartment of the left knee, with a secondary varus configuration. The lateral and patellofemoral joint space compartments are well-maintained. There is tricompartment peripheral osteophyte formation. No fracture or dislocation is seen. There is no significant left knee joint effusion. No foreign body is seen. The lateral and medial joint space compartments of the right knee are well-maintained. There is minimal peripheral osteophyte formation of the medial joint space compartment. XR/XR knee standing BI IMPRESSION: There is tricompartment osteoarthritic change of the left knee, most pronounced of the medial joint space compartment, where it is severe. There is a secondary varus configuration.
== END 2021-07-18 07:56 | disposition home or self-care (01) ==
LOC: HO.HOSX 07:55
PROVIDERS: Visit Provider Physician Assistant
DX: Z13.89 Encounter for screening for other disorder (principal)
CPT/HCPCS: 73560; 73565

== ENCOUNTER 2021-07-18 10:57 | Emergency (ER) | payer MEDICARE, SELFPAY ==
[2021-07-18 11:36] VITALS: BP 154/57; PULSE 63; RESP 18; TEMP 36.8; O2SAT 98; BMI 30.1
[2021-07-18 12:00] LABS: Appearance Urine CLEAR; Color Urine YELLOW; Glucose Urine UA NEG (NEG); Leukocyte Esterase Urine NEG (NEG); Nitrite Urine POS (NEG); Specific Gravity - Urine <= 1.005 (1.005-1.025); UACC Culture Trigger YES; Urine Blood NEG (NEG); Urine Ketones NEG (NEG); Urine Protein NEG (NEG-TRACE)
[2021-07-18 14:03] LABS: Squamous Epithelial Cell Urine TRACE /LPF
[2021-07-18 14:04] LABS: RBC Urine 0 /HPF (0); WBC Urine 0 /HPF (0-4)
--- NOTE | 2021-07-18 14:42 | ECG_ITS ---
Test Reason : GENERAL MEDICAL Blood Pressure : / mmHG Vent. Rate : 068 BPM Atrial Rate : 068 BPM P-R Int : 178 ms QRS Dur : 080 ms QT Int : 400 ms P-R-T Axes : 047 025 035 degrees QTc Int : 425 ms Sinus rhythm with Premature atrial complexes Otherwise normal ECG When compared with ECG of 15-JUL-2021 02:30, No significant change was found Referred By: Reina Garcia Electronically Signed By:OSMEL GIBSON
--- NOTE | 2021-07-18 14:57 | ED_ITS ---
HPI - General Adult General Chief complaint: General Medical Stated complaint: multiple complaints Time Seen by Provider: 07/18/21 14:31 Source: patient Mode of arrival: ambulatory Limitations: no limitations History of Present Illness HPI narrative: 70-year-old female with a history of osteoarthritis, chronic low back pain, recurring UTIs, diabetes, anxiety, hypertension, hyperlipidemia, seasonal allergies who presents to the ER with multiple complaints today. She was seen in the ER twice last week. She reports having intermittent positional dizziness in the setting of taking tramadol on an empty stomach. She was told to stop taking tramadol because of this intermittent dizziness. She now has worsening pain in her left knee and low back which has been present for quite a while now. She has an appointment this afternoon with orthopedics for evaluation of her ongoing left knee pain. She saw Dr. Purdy last week and had a negative urine culture. She reports ongoing suprapubic discomfort and urinary frequency. She is worried about her cardiac arrhythmia . When she gets dizzy intermittently she feels like she has some palpitations. She is not short of breath or having any chest pain. She has no fever chills nausea vomiting or diarrhea. She is very anxious. MD complaint: Multiple medical complaints Onset (ago): day(s) Location: abdomen, left and lower extremity Radiation: non-radiation Severity: moderate Severity scale (1-10): 6 Quality: aching Pain Consistency: intermittent Relieving factors: medication Associated symptoms: other (anxiety) Treatments prior to arrival: none Related Data Home Medications Medication Instructions Recorded Confirmed levothyroxine 50 mcg tablet 50 mcg PO QAM 08/12/20 06/15/21 triamcinolone acetonide 0.1 % applic TOPICAL DAILY 08/12/20 06/15/21 topical cream latanoprost 0.005 % eye drops 1 drp OPHTHALMIC (EYE) BEDTIME 02/08/21 06/15/21 Previous Rx's Medication Instructions Recorded hydrocortisone 2.5 % topical cream 1 appl TOPICAL TID PRN #28 g 12/18/20 diclofenac sodium 1 % topical gel 2 g TOPICAL QID #100 g 01/18/21 omeprazole 20 mg capsule,delayed 20 mg PO DAILY #90 cap 02/26/21 release estradiol See Rx Instructions .ROUTE DAILY 03/17/21 30 Days #42.5 g fluticasone propionate 50 1 spray INTRANASAL DAILY PRN #16 g 04/01/21 mcg/actuation nasal spray,suspension clotrimazole 1 % vaginal cream 1 appful VAGINAL BEDTIME 7 Days 04/14/21 #45 g glipizide 2.5 mg tablet, extended 2.5 mg PO DAILY #30 tab 05/24/21 release 24 hr lidocaine HCl 4 % topical cream 1 appl TOPICAL BID PRN #120 g 05/30/21 (Aspercreme (lidocaine HCl)) lisinopril 2.5 mg tablet 2.5 mg PO DAILY #90 tab 05/30/21 lorazepam 0.5 mg tablet 0.5 mg PO BEDTIME PRN #30 tab 05/30/21 metformin 500 mg tablet,extended 1,000 mg PO BID 30 Days #120 tab 05/30/21 release 24 hr ibuprofen 600 mg tablet 600 mg PO Q8H PRN #30 tab 06/14/21 estradiol 0.5 mg tablet 0.5 mg PO DAILY #90 tab 06/15/21 nitrofurantoin 1 cap PO ONCE 30 Days #30 cap 06/15/21 monohydrate/macrocrystals 100 mg capsule atenolol 25 mg tablet 12.5 mg PO DAILY #15 tab 07/03/21 ibuprofen 600 mg tablet 600 mg PO Q8H #90 tab 07/03/21 tramadol 50 mg tablet 50 mg PO BID PRN 15 Days #30 tab 07/03/21 simvastatin 40 mg tablet 40 mg PO BEDTIME 90 Days #90 tab 07/04/21 cyclobenzaprine 5 mg tablet 5 mg PO TID PRN #20 tab 07/12/21 levofloxacin 500 mg tablet 500 mg PO DAILY 7 Days #7 tab 07/14/21 nitrofurantoin macrocrystal 100 mg 100 mg PO Q12H #14 cap 07/18/21 capsule Allergies Allergy/AdvReac Type Severity Reaction Status Date / Time amoxicillin [From Augmentin] Allergy Intermediate rash Verified 07/18/21 11:36 cefuroxime [From CEFTIN] Allergy Intermediate RASH Verified 07/18/21 11:36 clavulanic acid Allergy Intermediate rash Verified 07/18/21 11:36 [From Augmentin] doxycycline [DOXYCYCLINE] Allergy Unknown HIVES Verified 07/18/21 11:36 Sulfa (Sulfonamide Allergy Unknown rash Verified 07/18/21 11:36 Antibiotics) [place] Allergy Unknown rash Uncoded 05/30/21 11:54 Review of Systems Review of Systems: Constitutional: No Fever, No Chills ENT/Mouth: No sore throat, No Rhinorrhea, No Swallowing Difficulty Cardiovascular: No Chest Pain, No SOB Respiratory: No Cough, No Sputum Gastrointestinal: No Nausea, No Vomiting, No Diarrhea, + abdominal Pain (suprapubic) Genitourinary: + Dysuria, + Urinary Frequency, No Hematuria Musculoskeletal: + joint pain, + Myalgias Skin: No Skin Lesions, No rash Neuro: + Weakness, No Numbness, + Dizziness, No Headache Psych: + Anxiety/Panic, No Depression Heme/Lymph: No Bruising, No Lymphadenopathy Endocrine: No Polyuria, No Polydipsia PMFSH Past Medical History Medical History Acute sinusitis Cardiac arrhythmia Chest pain Diabetes Dysuria Dysuria Flank pain HTN (hypertension) Left knee pain Post-menopausal Recurrent UTI Rib pain on right side Sinusitis Urinary frequency Urinary tract infection Yeast infection of the vagina Surgical History H/O: hysterectomy History of cardiac radiofrequency ablation Family History Family History Father CVD (cardiovascular disease) Mother No problems noted. Social History Social History Housing: House Alcohol intake: current Alcohol intake frequency: holidays/special occasions only Alcohol type: beer and wine Patient Tobacco Use Status: Former Tobacco user e-Cigarette/Vaping Use: Never Used Second Hand Smoke Exposure: Yes Advance Directives: No Advance Directives Information Provided: No service: No Current occupational status: retired Physical Exam Vital Signs: Vital Signs: Last Vital Signs Temp 98.3 F 07/18/21 11:36 Pulse 63 07/18/21 11:36 Resp 18 07/18/21 11:36 BP 154/57 H 07/18/21 11:36 Pulse Ox 98 07/18/21 11:36 Body Mass Index 30.1 Appearance: Alert. Oriented X3. No acute distress. Eyes: Pupils equal, round and reactive to light. ENT: Pharynx normal. Neck: Normal inspection. Neck supple. CVS: Normal heart rate and rhythm. Pulses normal. Respiratory: No respiratory distress. Breath sounds normal. Abdomen: Soft and nontender. +BS x4 Skin: Skin warm and dry. Normal skin color. Normal skin turgor. No rashes. Extremities: No lower extremity edema. Slightly tender left knee joint throughout including posteriorly with no palpable mass or cystic lesion, normal ROM. no calf tenderness, skin changes or swelling. Neuro: Oriented X 3. No motor deficit. No sensory deficit. Course Course Course Narrative: 70-year-old female with multiple medical problems presenting to the ER with multiple medical complaints. She is seen here twice in the last 1 week for ongoing issues. Her main complaint today is worsening left knee pain and low back pain in the setting of taking herself off of her tramadol which she has been using for chronic pain. She stopped the tramadol because of intermittent positional dizziness. She admits to taking this medication on empt y stomach. We discussed trial of half dose of tramadol as needed for pain in addition to around the clock Tylenol and Motrin. She has an appointment with Orthopedics today on like to discuss joint injections and further imaging of her ongoing left knee pain. No need for further imaging emergently. She will repeat UA given her ongoing urinary symptoms. No need to repeat lab work at this time as it was just done a couple of days ago and was unremarkable. Reevaluation(s) Reevaluation #1: UA is continuing to show nitrites positive. She has had multiple recent negative urinary cultures however given her symptoms will plan for 1 full week of treatment with Macrobid, she reports success with this antibiotic in the past. She has no fevers no vomiting no nausea. Her EKG is unremarkable. She is stable for discharge home with p.o. antibiotics and follow-up with orthopedics for further evaluation of her joint pains. Medical Decision Making Lab Data Labs: Lab Results 07/18/21 Range/Units 11:49 Urine Color YELLOW Urine Appearance CLEAR Urine pH 6.0 (5.0-8.0) Ur Specific [place] <= 1.005 (1.005-1.025) Urine Protein NEG (NEG-TRACE) MG/DL Urine Glucose (UA) NEG (NEG) MG/DL Urine Ketones NEG (NEG) MG/DL Urine Blood NEG (NEG) Urine Nitrite POS H (NEG) Ur Leukocyte Esterase NEG (NEG) Urine RBC 0 (0) /HPF Urine WBC 0 (0-4) /HPF Ur Squamous Epith Cells TRACE /LPF Urine Bacteria NONE /LPF ECG Data Attestation: I personally reviewed and interpreted this ECG as follows: Prior ECG tracings: available for review Interpretation: Normal sinus rhythm, heart rate 68 beats per minute, occasional premature atrial complexes. Normal [place] interval. No ST segment elevations or depressions. Critical Care Time Critical Care Time Critical Care Time: No Discharge Plan Discharge Clinical Impression: Recurrent UTI Left knee pain Qualifiers: Chronicity: chronic Qualified Code(s): M25.562 - Pain in left knee Patient Disposition: Home, Self-Care Instructions: Urinary Tract Infection in Older Adults (ED) Additional Instructions: Follow-up with the Orthopedic today as scheduled for further evaluation of your knee pain. Recommend taking the tramadol as needed for pain, cut the pill in half. Take it with food. When going from lying to sitting or standing do so slowly. Your urine test showed infection. Take the prescribed antibiotic as directed for 1 week. Increase your hydration and drink plenty of water. Recommend extra-strength Tylenol 650 mg every 6 hours around the clock as needed for pain. Recommend 600 mg of ibuprofen every 6-8 hours as needed for pain. Take with food. Follow-up with your doctor in 1 week. If you develop new or worsening symptoms call 911 or come back to the ER for further evaluation. Prescriptions: New nitrofurantoin macrocrystal 100 mg capsule 100 mg PO Q12H Qty: 14 RF: 0 No Action omeprazole 20 mg capsule,delayed release(DR/EC) 20 mg PO DAILY Qty: 90 RF: 2 estradiol 0.01 % (0.1 mg/gram) cream See Rx Instructions .Route DAILY 30 Days Qty: 42.5 RF: 2 glipizide 2.5 mg tablet extended release 24hr 2.5 mg PO DAILY Qty: 30 RF: 0 lorazepam 0.5 mg tablet 0.5 mg PO BEDTIME PRN (Reason: anxiety) Qty: 30 RF: 2 lidocaine HCl [Aspercreme (lidocaine HCl)] 4 % cream 1 appl topical BID PRN (Reason: pain) Qty: 120 RF: 0 ibuprofen 600 mg tablet 600 mg PO Q8H PRN (Reason: pain) Qty: 30 RF: 0 atenolol 25 mg tablet 12.5 mg PO DAILY Qty: 15 RF: 3 ibuprofen 600 mg tablet 600 mg PO Q8H Qty: 90 RF: 2 tramadol 50 mg tablet 50 mg PO BID PRN (Reason: pain (scale score 7-10)) 15 Days Qty: 30 RF: 0 simvastatin 40 mg tablet 40 mg PO BEDTIME 90 Days Qty: 90 RF: 1 hydrocortisone 2.5 % cream 1 appl topical TID PRN (Reason: itching) Qty: 28 RF: 0 fluticasone propionate 50 mcg/actuation spray,suspension 1 spray intranasal DAILY PRN (Reason: allergy symptoms) Qty: 16 RF: 0 cyclobenzaprine 5 mg tablet 5 mg PO TID PRN (Reason: muscle spasm) Qty: 20 RF: 0 diclofenac sodium 1 % gel 2 g topical QID Qty: 100 RF: 0 clotrimazole 1 % cream 1 appful vaginal BEDTIME 7 Days Qty: 45 RF: 0 lisinopril 2.5 mg tablet 2.5 mg PO DAILY Qty: 90 RF: 2 metformin 500 mg tablet extended release 24 hr 1,000 mg PO BID 30 Days Qty: 120 RF: 4 levothyroxine 50 mcg tablet 50 mcg PO QAM RF: 0 triamcinolone acetonide 0.1 % cream topical DAILY RF: 0 nitrofurantoin monohyd/m-cryst 100 mg capsule 1 cap PO ONCE 30 Days Qty: 30 RF: 1 estradiol 0.5 mg tablet 0.5 mg PO DAILY Qty: 90 RF: 0 latanoprost 0.005 % drops 1 drp ophthalmic (eye) BEDTIME RF: 0 levofloxacin 500 mg tablet 500 mg PO DAILY 7 Days Qty: 7 RF: 0
[2021-07-18] MEDS: Lidocaine 4 % Patch ADH..PATCH 1 PATCH TRANSDERMA (14:58)
[2021-07-18] MEDS: Ketorolac Tromethamine 15 MG/ML VIAL 30 MG IM (14:58)
== END 2021-07-18 15:39 | disposition home or self-care (01) ==
PROVIDERS: Emergency Provider Emergency Medicine; PCP Physician Assistant
DX: R42 Dizziness and giddiness (principal); N39.0 Urinary tract infection, site not specified; M25.562 Pain in left knee; Z87.891 Personal history of nicotine dependence; Z79.899 Other long term (current) drug therapy
CPT/HCPCS: 73560; 73565; 81001; 81003; 87086; 93005; 96372; 99212; 99283; 99284; J1885

== ENCOUNTER 2021-07-19 11:09 | Outpatient (REF) | payer MEDICARE, SELFPAY ==
--- NOTE | ~2021-07-19 | XR_ITS ---
EXAMINATION: XR SINUSES CLINICAL INFORMATION: Chronic sinusitis. COMPARISON: CT brain dated 10/03/2019. TECHNIQUE: 5 views of the sinuses were obtained. FINDINGS: Paranasal sinuses appear clear without air-fluid levels. No fractures are identified. No radiodense foreign bodies. A small round probable benign osteoma is redemonstrated within the left frontal sinus. This is of no acute clinical significance. XR/XR sinus min 3V IMPRESSION: Unremarkable examination.
== END 2021-07-19 11:10 | disposition home or self-care (01) ==
LOC: HO.XRAY 11:09
PROVIDERS: PCP Physician Assistant; Visit Provider Physician Assistant
DX: J32.9 Chronic sinusitis, unspecified (principal)
CPT/HCPCS: 70220

== ENCOUNTER 2021-07-21 17:50 | Outpatient (REF) | payer MEDICARE, SELFPAY | END 2021-07-21 17:51 | disposition home or self-care (01) | LOC: HO.LNP 17:50 | PROVIDERS: Visit Provider Nurse Practitioner Family | DX: N39.0 Urinary tract infection, site not specified (principal) | CPT/HCPCS: 87086 ==

== ENCOUNTER 2021-07-26 00:20 | Emergency (ER) | payer MEDICARE, SELFPAY ==
[2021-07-26 00:26] VITALS: BP 154/83; PULSE 78; RESP 16; TEMP 37.2; O2SAT 96; BMI 29.0
--- NOTE | 2021-07-26 02:29 | PC.NURSE ---
PT HAS BEEN PACING UP AND DOWN HALLWAY, SHE IS ASSIGNED TO BED STEELE 18. PT HAS BEEN STANDING TALKING TO PT IN STEELE 19. PT HAS ASKED STAFF WHEN SHE WILL GET SOMETHING FOR PAIN. EXPLAINTED TO PATIENT THAT A PROVIDER HAS NOT SIGNED UP YET TO SEE HER.
--- NOTE | 2021-07-26 03:13 | PC.NURSE ---
pt reports she is currently being treated for a uti by MD Purdy.
[2021-07-26 03:24] LABS: Appearance Urine CLEAR; Color Urine YELLOW; Glucose Urine UA NEG (NEG); Leukocyte Esterase Urine NEG (NEG); Nitrite Urine NEG (NEG); Specific Gravity - Urine <= 1.005 (1.005-1.025); Urine Blood NEG (NEG); Urine Ketones NEG (NEG); Urine Protein NEG (NEG-TRACE)
[2021-07-26 03:25] LABS: UACC Culture Trigger NO
--- NOTE | 2021-07-26 04:11 | ED_ITS ---
HPI - General Adult General Chief complaint: Extremity Problem Stated complaint: Back/Leg pain Time Seen by Provider: 07/26/21 03:06 Source: patient Mode of arrival: ambulatory Limitations: no limitations History of Present Illness HPI narrative: 70-year-old female who presents emergency department for evaluation of lower back pain, left knee pain, left groin pain and urinary frequency. The patient has had multiple visits with similar complaints. She was last seen in the emergency department on 07/18/2021 and diagnosed with UTI started on Macrobid. The patient states that she is continuing to have urinary frequency. She is also complaining of left groin pain, this is a moderate to severe, constant, sharp pain which is worse with movement. She is also complaining of lower back pain which again she states is constant, sharp and moderate to severe in intensity. The patient states that her left knee is swollen she has had cortisone injections in the past. She states the pain is a constant sharp pain which is moderate to severe in intensity as well. The patient is concerned that she might have a urinary tract infection despite completing a course of antibiotics. In reviewing the patient's last 5 urine culture result, the patient has not grown a significant organism, she has mainly had mixed moises. She denied fever, chills, chest pain, shortness of breath, nausea, vomiting or diarrhea. Related Data Home Medications Medication Instructions Recorded Confirmed levothyroxine 50 mcg tablet 50 mcg PO QAM 08/12/20 07/24/21 triamcinolone acetonide 0.1 % applic TOPICAL DAILY 08/12/20 07/24/21 topical cream latanoprost 0.005 % eye drops 1 drp OPHTHALMIC (EYE) BEDTIME 02/08/21 07/24/21 Previous Rx's Medication Instructions Recorded hydrocortisone 2.5 % topical cream 1 appl TOPICAL TID PRN #28 g 12/18/20 diclofenac sodium 1 % topical gel 2 g TOPICAL QID #100 g 01/18/21 omeprazole 20 mg capsule,delayed 20 mg PO DAILY #90 cap 02/26/21 release glipizide 2.5 mg tablet, extended 2.5 mg PO DAILY #30 tab 05/24/21 release 24 hr lidocaine HCl 4 % topical cream 1 appl TOPICAL BID PRN #120 g 05/30/21 (Aspercreme (lidocaine HCl)) lisinopril 2.5 mg tablet 2.5 mg PO DAILY #90 tab 05/30/21 lorazepam 0.5 mg tablet 0.5 mg PO BEDTIME PRN #30 tab 05/30/21 metformin 500 mg tablet,extended 1,000 mg PO BID 30 Days #120 tab 05/30/21 release 24 hr estradiol 0.5 mg tablet 0.5 mg PO DAILY #90 tab 06/15/21 atenolol 25 mg tablet 12.5 mg PO DAILY #15 tab 07/03/21 ibuprofen 600 mg tablet 600 mg PO Q8H #90 tab 07/03/21 tramadol 50 mg tablet 50 mg PO BID PRN 15 Days #30 tab 07/03/21 simvastatin 40 mg tablet 40 mg PO BEDTIME 90 Days #90 tab 07/04/21 nitrofurantoin macrocrystal 100 mg 100 mg PO Q12H #14 cap 07/18/21 capsule fluticasone propionate 50 2 spray INTRANASAL DAILY 30 Days 07/19/21 mcg/actuation nasal #16 g spray,suspension (Flonase Allergy Relief) sertraline 25 mg tablet (Zoloft) 25 mg PO DAILY 30 Days #30 tab 07/19/21 lidocaine 4 % topical patch 1 patch TOPICAL DAILY PRN #10 ea 07/21/21 (Aspercreme (lidocaine)) phenazopyridine 100 mg tablet 100 mg PO TID PRN 5 Days #15 tab 07/21/21 (Pyridium) cyclobenzaprine 5 mg tablet 5 mg PO TID PRN #14 tab 07/24/21 meloxicam 7.5 mg tablet (Mobic) 7.5 mg PO DAILY #30 tab 07/26/21 Allergies Allergy/AdvReac Type Severity Reaction Status Date / Time amoxicillin [From Augmentin] Allergy Intermediate rash Verified 07/24/21 17:11 cefuroxime [From CEFTIN] Allergy Intermediate RASH Verified 07/24/21 17:11 clavulanic acid Allergy Intermediate rash Verified 07/24/21 17:11 [From Augmentin] doxycycline [DOXYCYCLINE] Allergy Unknown HIVES Verified 07/24/21 17:11 Sulfa (Sulfonamide Allergy Unknown rash Verified 07/24/21 17:11 Antibiotics) [place] Allergy Unknown rash Uncoded 07/24/21 17:11 Review of Systems Review of Systems: Yes all other systems are reviewed and are negative PMFSH Past Medical History Medical History Acute sinusitis Cardiac arrhythmia Chest pain Diabetes Dysuria Dysuria Flank pain HTN (hypertension) Left knee pain Post-menopausal Recurrent UTI Rib pain on right side Sinusitis Urinary frequency Urinary tract infection Yeast infection of the vagina Surgical History H/O: hysterectomy History of cardiac radiofrequency ablation Family History Family History Father CVD (cardiovascular disease) Mother No problems noted. Social History Social History Housing: House Alcohol intake: current Alcohol intake frequency: holidays/special occasions only Alcohol type: beer and wine Patient Tobacco Use Status: Former Tobacco user e-Cigarette/Vaping Use: Never Used Second Hand Smoke Exposure: Yes Advance Directives: No service: No Current occupational status: retired Current occupation: rt handed Physical Exam Vital Signs: Vital Signs: Last Vital Signs Temp 98.9 F 07/26/21 00:26 Pulse 78 07/26/21 00:26 Resp 16 07/26/21 00:26 BP 154/83 H 07/26/21 00:26 Pulse Ox 96 07/26/21 00:26 Body Mass Index 29.0 Const: Other: Very pleasant cooperative 70-year-old female, she is extremely anxious, she does not appear to be in distress HENMT: Head: Yes normal to inspection, Yes normocephalic and Yes atraumatic Ears: external ears normal General nose exam: Normal external nose present Face and sinus: Yes normal facial exam Mouth: Normal oral and palatal mucosa present Throat: Yes posterior oropharynx normal Eyes: General: appearance normal, both eyes and all related structures Pupils: Equal, round and reactive pupils present Neck: Neck: Yes normal visual inspection, Yes no lymphadenopathy, Yes trachea midline and Yes supple Chest: Chest palpation & inspection: normal inspection of the chest and normal palpation of entire chest wall Resp: Effort & Inspection: normal respiratory effort and able to speak in complete sentences Auscultation: clear to auscultation bilaterally Cardio: Rate: regular rate Rhythm: regular rhythm Heart sounds: S1 normal heart sound present, S2 normal heart sound present and no murmurs GI: Inspection: Yes normal to inspection Palpation (GI): Soft to palpation, nontender and no guarding Auscultation: normal bowel sounds Back/Spine/Pelvis: Other: The patient has tenderness with palpation of her lumbar sacral paraspinal muscles and her lumbar spine. She has negative straight leg raises bilaterally. She is able to walk in the emergency department without any difficulty. Skin: General skin exam: no rashes or lesions noted Neuro: Cranial nerves: Yes CN's II-XII intact bilaterally and Yes Equal, round and reactive pupils present Cognition (Neuro): normal cognition Motor exam (neuro): 5/5 motor strength present throughout Extrem: Other: The patient has tenderness palpation of her left groin and her left knee, she is able to walk without any difficulty. General: Yes normal to inspection Psych: Appearance: grossly normal Speech and movement: Normal speech and movement present Affect: Anxious affect present Attitude: cooperative Course Course Course Narrative: 70-year-old female who presents emergency department complaining of lower back pain, left groin pain and left knee pain. The patient has also had urinary frequency. Patient's urinalysis was negative. The patie nt's last 5 urine cultures did not grow any significant bacteria I slid but did have mixed moises. At this time I do not think the patient has urinary tract infection I believe that her pain is secondary to arthritis. Patient states that she has been taking tramadol, Tylenol and ibuprofen. Patient states that tramadol was making her lightheaded she stop this medication. Patient was advised to continue taking Tylenol but to stop ibuprofen. The patient will be prescribed meloxicam 10 mg once a day. Patient was given verbal and printed instructions discharged home. Medical Decision Making Lab Data Labs: Lab Results 07/26/21 Range/Units 03:17 Urine Color YELLOW Urine Appearance CLEAR Urine pH 6.0 (5.0-8.0) Ur Specific [place] <= 1.005 (1.005-1.025) Urine Protein NEG (NEG-TRACE) MG/DL Urine Glucose (UA) NEG (NEG) MG/DL Urine Ketones NEG (NEG) MG/DL Urine Blood NEG (NEG) Urine Nitrite NEG (NEG) Ur Leukocyte Esterase NEG (NEG) Discharge Plan Discharge Clinical Impression: Back pain, Acute pain of left knee, Left groin pain Patient Disposition: Home, Self-Care Additional Instructions: Your urine test today was negative. The last 5 urine samples that you have given this did not grow out any significant bacteria suggesting that you do not have a urine infection as the cause of your groin pain. Stop taking ibuprofen. I am prescribing a prescription anti-inflammatory medication called meloxicam. Take meloxicam 7.5 mg once a day. Continue taking Tylenol 500 mg pills, 2 pills every 6 hours as needed for pain. Follow-up with your doctor in 2 days. Please return to the emergency department if your symptoms get worse or if you develop any symptoms that are concerning to you. Prescriptions: New meloxicam [Mobic] 7.5 mg tablet 7.5 mg PO DAILY Qty: 30 RF: 0 No Action omeprazole 20 mg capsule,delayed release(DR/EC) 20 mg PO DAILY Qty: 90 RF: 2 glipizide 2.5 mg tablet extended release 24hr 2.5 mg PO DAILY Qty: 30 RF: 0 lorazepam 0.5 mg tablet 0.5 mg PO BEDTIME PRN (Reason: anxiety) Qty: 30 RF: 2 lidocaine HCl [Aspercreme (lidocaine HCl)] 4 % cream 1 appl topical BID PRN (Reason: pain) Qty: 120 RF: 0 atenolol 25 mg tablet 12.5 mg PO DAILY Qty: 15 RF: 3 ibuprofen 600 mg tablet 600 mg PO Q8H Qty: 90 RF: 2 tramadol 50 mg tablet 50 mg PO BID PRN (Reason: pain (scale score 7-10)) 15 Days Qty: 30 RF: 0 simvastatin 40 mg tablet 40 mg PO BEDTIME 90 Days Qty: 90 RF: 1 fluticasone propionate [Flonase Allergy Relief] 50 mcg/actuation spray,suspension 2 spray intranasal DAILY 30 Days Qty: 16 RF: 0 sertraline [Zoloft] 25 mg tablet 25 mg PO DAILY 30 Days Qty: 30 RF: 1 phenazopyridine [Pyridium] 100 mg tablet 100 mg PO TID PRN (Reason: pain) 5 Days Qty: 15 RF: 0 hydrocortisone 2.5 % cream 1 appl topical TID PRN (Reason: itching) Qty: 28 RF: 0 nitrofurantoin macrocrystal 100 mg capsule 100 mg PO Q12H Qty: 14 RF: 0 diclofenac sodium 1 % gel 2 g topical QID Qty: 100 RF: 0 lisinopril 2.5 mg tablet 2.5 mg PO DAILY Qty: 90 RF: 2 metformin 500 mg tablet extended release 24 hr 1,000 mg PO BID 30 Days Qty: 120 RF: 4 levothyroxine 50 mcg tablet 50 mcg PO QAM RF: 0 triamcinolone acetonide 0.1 % cream topical DAILY RF: 0 estradiol 0.5 mg tablet 0.5 mg PO DAILY Qty: 90 RF: 0 cyclobenzaprine 5 mg tablet 5 mg PO TID PRN (Reason: muscle spasm) Qty: 14 RF: 0 lidocaine [Aspercreme (lidocaine HCl)] 4 % adhesive patch,medicated 1 patch topical DAILY PRN (Reason: pain) Qty: 10 RF: 0 latanoprost 0.005 % drops 1 drp ophthalmic (eye) BEDTIME RF: 0
[2021-07-26] MEDS: Ketorolac Tromethamine 15 MG/ML VIAL 30 MG IM (04:17)
--- NOTE | 2021-07-26 06:25 | PC.NURSE ---
ALLOWED PT TO SLEEP ON STRETCHER UNTIL HER RIDE ARRIVED AT 06:30.
== END 2021-07-26 04:30 | disposition home or self-care (01) ==
PROVIDERS: Emergency Provider Emergency Medicine Emergency Medical Services; PCP Physician Assistant
DX: M54.50 Low back pain, unspecified (principal); M25.562 Pain in left knee; R10.32 Left lower quadrant pain; R35.0 Frequency of micturition; E11.9 Type 2 diabetes mellitus without complications; I10 Essential (primary) hypertension
CPT/HCPCS: 81003; 96372; 99284; J1885

== ENCOUNTER 2021-07-27 13:40 | Outpatient (REF) | payer MEDICARE, SELFPAY ==
--- NOTE | ~2021-07-27 | XR_ITS ---
EXAMINATION: XR LUMBAR SPINE CLINICAL INFORMATION: Reason for Exam M54.16 - Radiculopathy, lumbar region COMPARISON: February 01 TECHNIQUE: Frontal lateral and coned-down L5-S1 frontal lateral FINDINGS: Five [id number] lumbar vertebrae were identified maintaining normal height, L5 is partially sacralized, there is mild grade 1 spondylolisthesis of L4 on L5,. Narrowing of intervertebral disc spaces suggest underlying degenerative disc disease. There is heavy vascular aortic calcification. Paravertebral soft tissues are unremarkable. There are radiolucencies, most likely superimposed bowel gas.. No radiographic evidence of osteolytic or osteoblastic lesions. XR/XR lumbar spine 2-3V IMPRESSION: Partially sacralized L5. Redemonstration of stable grade 1 anterior spondylolisthesis of L4 on L5. Narrowing of intervertebral disc spaces suggest underlying degenerative disc disease. . Heavy aortic vascular calcifications.
--- NOTE | ~2021-07-27 | XR_ITS ---
EXAMINATION: XR knee LT 3V CLINICAL INFORMATION: Reason for Exam M17.12 - Unilateral primary osteoarthritis, left knee COMPARISON: None available at the time of this dictation. TECHNIQUE: frontal, lateral, tunnel and patella sunrise views FINDINGS: BONES: No fracture or dislocation is present. JOINTS: Narrowing of joint spaces and developed osteophytes from the edges of articular surfaces suggest degenerative osteoarthritis. SOFT TISSUE: Normal XR/XR knee LT 3V IMPRESSION: Moderate tricompartmental degenerative osteoarthritis involving especially the medial compartment of the left knee. No significant knee joint effusion.
== END 2021-07-27 13:41 | disposition home or self-care (01) ==
LOC: HO.XRAY 13:40
PROVIDERS: PCP Physician Assistant; Visit Provider Physician Assistant
DX: M17.12 Unilateral primary osteoarthritis, left knee (principal); M54.16 Radiculopathy, lumbar region; R07.9 Chest pain, unspecified; I49.8 Other specified cardiac arrhythmias; E78.5 Hyperlipidemia, unspecified; E11.65 Type 2 diabetes mellitus with hyperglycemia; I10 Essential (primary) hypertension
CPT/HCPCS: 72100; 73562; 99212

== ENCOUNTER 2021-07-27 21:19 | Emergency (ER) | payer MEDICARE, SELFPAY ==
--- NOTE | ~2021-07-27 | CT_ITS ---
EXAMINATION: CT ABDOMEN AND PELVIS WITHOUT CONTRAST CLINICAL INFORMATION: Suprapubic abdominal pain and pain with urination. COMPARISON: Renal ultrasound dated 01/24/2021. TECHNIQUE: Multidetector volumetric imaging was performed from the superior aspect of the liver through the pubic symphysis. Sagittal and coronal reformatted images were obtained on the technologist's workstation. This CT examination was performed using dose optimization techniques as appropriate, variously including the following: *Automated exposure control *Adjustment of mA and/or kV according to patient size (this includes techniques or standardized protocols for targeted exams where dose is matched to indication/reason for exam; i.e. extremities or head) *Use of iterative reconstruction technique DLP: 578 mGy-cm FINDINGS: LUNG BASES: The visualized lung bases are unremarkable. LIVER, GALLBLADDER, AND BILIARY TREE: The liver is normal in size, shape, and attenuation. No focal hepatic lesion or biliary ductal dilatation is present. Gallbladder unremarkable. PANCREAS: Unremarkable. SPLEEN: Unremarkable. ADRENAL GLANDS: Unremarkable. KIDNEYS AND URETERS: The kidneys are normal in size, shape, and attenuation. No hydronephrosis, hydroureter, or calculi seen. No perinephric stranding. BLADDER: Unremarkable. GASTROINTESTINAL TRACT: Scattered colonic diverticula, most concentrated within the sigmoid colon. No evidence of diverticulitis. Normal appendix. Stomach and small bowel unremarkable. ABDOMINAL WALL: No significant hernia is appreciated. LYMPH NODES: Normal. VASCULAR: Aorta is atherosclerotic but normal caliber. PELVIC VISCERA: Hysterectomy. No adnexal abnormalities. OSSEOUS STRUCTURES: No acute or suspicious osseous abnormalities. Degenerative changes present throughout the imaged spine with vacuum disc phenomena at L3-L4, L4-L5 and L5-S1. Assuming 12 paired ribs, S1 is lumbarized with rudimentary disc at S1-S2. CT/CT abdomen pelvis wo con IMPRESSION: * Images degraded by motion artifact. * No potential etiology for the patient's symptomatology is identified. * Pancolonic diverticulosis, most concentrated within sigmoid colon. No evidence of diverticulitis. * Hysterectomy
[2021-07-27 21:37] VITALS: BP 156/78; BP 174/78; PULSE 88; PULSE 99; RESP 18; TEMP 36.3; O2SAT 96; O2SAT 99; BMI 29.0
[2021-07-27 22:33] LABS: Appearance Urine CLEAR; Color Urine YELLOW; Glucose Urine UA NEG (NEG); Leukocyte Esterase Urine NEG (NEG); Nitrite Urine POS (NEG); PH 5.5 (5.0-8.0); UACC Culture Trigger YES; Urine Blood NEG (NEG); Urine Ketones NEG (NEG); Urine Protein NEG (NEG-TRACE)
--- NOTE | 2021-07-27 22:35 | ED.ABDPAIN ---
HPI - Abdominal Pain General Chief Complaint: Weakness Stated Complaint: ABD PAIN WEAKNESS KNEE PAIN Time Seen by Provider: 07/27/21 21:48 Source: patient Mode of arrival: ambulatory Limitations: no limitations History of Present Illness HPI narrative: 70 y/o female with history of HTN, CAD, hx NSTEMI in 2015, hx SVT, hypothyroidism, carpal tunnel syndrome, osteoarthritis, chronic back pain, anxiety, and recurrent UTI's?who has been seen in this ER 4 times in the past 2 weeks for similar complaint presenting to the ED today with complaints of suprapubic abdominal pain worse with urination that has been intermittent over the past few days despite completing a course of antibiotics per the patient. She reports when she was at home today her symptoms worsened this is why she came here for further evaluation treatment. She reports she also has been having some chronic lower back pain and left knee pain which she seen her primary care provider Sammy Cordova PA-C who ordered an outpatient x-ray of the left knee and lumbar spine x-ray which are still pending. Patient reports she has multiple medications at home which include NSAIDs, Tylenol, tramadol, muscle relaxants and oxycodone that she was just prescribed by her primary care provider this morning. She reports she has not taken oxycodone that was prescribed. She is concerned that she may have kidney stones or urinary tract infection. Patient denies any fevers, chills, dizziness, headaches, neck pain/stiffness, chest pain or shortness of breath, nausea/vomiting, dyspnea on exertion, orthopnea, palpitations, radiation of the abdominal pain, hematuria, abnormal vaginal discharge, diarrhea or constipation, black or bloody stools, recent travel or sick contacts or any other symptoms complaints or concerns at this time. MD elicited complaint: abdominal pain Pertinent past history: past UTI Onset (ago): day(s) (For the past few days worse today) Pain Consistency: intermittent Location: suprapubic Severity: mild Quality: aching Radiation: none Migration to: no migration Exacerbating factors: other (Urination) Relieving factors: nothing Associated symptoms: denies other symptoms Treatments prior to arrival: other (See above) Related Data Home Medications Medication Instructions Recorded Confirmed levothyroxine 50 mcg tablet 50 mcg PO QAM 08/12/20 07/24/21 triamcinolone acetonide 0.1 % applic TOPICAL DAILY 08/12/20 07/24/21 topical cream latanoprost 0.005 % eye drops 1 drp OPHTHALMIC (EYE) BEDTIME 02/08/21 07/24/21 Previous Rx's Medication Instructions Recorded hydrocortisone 2.5 % topical cream 1 appl TOPICAL TID PRN #28 g 12/18/20 diclofenac sodium 1 % topical gel 2 g TOPICAL QID #100 g 01/18/21 omeprazole 20 mg capsule,delayed 20 mg PO DAILY #90 cap 02/26/21 release glipizide 2.5 mg tablet, extended 2.5 mg PO DAILY #30 tab 05/24/21 release 24 hr lisinopril 2.5 mg tablet 2.5 mg PO DAILY #90 tab 05/30/21 lorazepam 0.5 mg tablet 0.5 mg PO BEDTIME PRN #30 tab 05/30/21 metformin 500 mg tablet,extended 1,000 mg PO BID 30 Days #120 tab 05/30/21 release 24 hr estradiol 0.5 mg tablet 0.5 mg PO DAILY #90 tab 06/15/21 atenolol 25 mg tablet 12.5 mg PO DAILY #15 tab 07/03/21 ibuprofen 600 mg tablet 600 mg PO Q8H #90 tab 07/03/21 tramadol 50 mg tablet 50 mg PO BID PRN 15 Days #30 tab 07/03/21 simvastatin 40 mg tablet 40 mg PO BEDTIME 90 Days #90 tab 07/04/21 fluticasone propionate 50 2 spray INTRANASAL DAILY 30 Days 07/19/21 mcg/actuation nasal #16 g spray,suspension (Flonase Allergy Relief) sertraline 25 mg tablet (Zoloft) 25 mg PO DAILY 30 Days #30 tab 07/19/21 lidocaine 4 % topical patch 1 patch TOPICAL DAILY PRN #10 ea 07/21/21 (Aspercreme (lidocaine)) phenazopyridine 100 mg tablet 100 mg PO TID PRN 5 Days #15 tab 07/21/21 (Pyridium) cyclobenzaprine 5 mg tablet 5 mg PO TID PRN #14 tab 07/24/21 estradiol See Rx Instructions .ROUTE DAILY 07/26/21 30 Days #42.5 g meloxicam 7.5 mg tablet (Mobic) 7.5 mg PO DAILY #30 tab 07/26/21 nitrofurantoin 100 mg PO BID 7 Days #14 cap 07/27/21 monohydrate/macrocrystals 100 mg capsule (Macrobid) oxycodone 5 mg tablet 5 mg PO BID PRN 5 Days #10 tab 07/27/21 Allergies Allergy/AdvReac Type Severity Reaction Status Date / Time amoxicillin [From Augmentin] Allergy Intermediate rash Verified 07/27/21 15:26 cefuroxime [From CEFTIN] Allergy Intermediate RASH Verified 07/27/21 15:26 clavulanic acid Allergy Intermediate rash Verified 07/27/21 15:26 [From Augmentin] doxycycline [DOXYCYCLINE] Allergy Unknown HIVES Verified 07/27/21 15:26 Review of Systems Review of Systems Constitutional : No Weight loss, No Fever, No Chills, No Night Sweats, No Fatigue, NoMalaise ENT/Mouth: No ear pain, No sore throat, No Difficulty swallowing Cardiovascular : No Chest Pain, No SOB, No Dyspnea on Exertion, No Orthopnea, NoEdema, No Palpitations Respiratory : No Cough, No Sputum, No Wheezing, No Dyspnea Gastrointestinal : Positive abdominal pain, No Nausea, No Vomiting, No Diarrhea, No blood streaked emesis, No coffee-ground emesis, No gross hematemesis, No blood streak stool, No gross hematochezia, No Melena Genitourinary : Positive pain with urination, No irregular bleeding, No Dysuria, No Urinary Frequency, No Hematuria,No Urinary Incontinence, No Urgency, No Flank Pain Musculoskeletal : Chronic left knee joint pain and lower back pain, No Myalgias, No Joint Swelling Skin : No Skin Lesions, No rash Neuro : No Weakness, No Numbness, No Paresthesias, No Loss of Consciousness, NoDizziness, No Headache Psych : No Social Issues, Heme/Lymph: No Bruising, No Bleeding,No Lymphadenopathy Endocrine : No Polyuria, No Polydipsia, No Temperature Intolerance Yes all other systems are reviewed and are negative Physical Exam Vital Signs: Vital Signs: Last Vital Signs Temp 97.4 F 07/27/21 21:37 Pulse 88 07/27/21 21:37 Resp 18 07/27/21 21:37 BP 156/78 H 07/27/21 21:37 Pulse Ox 96 07/27/21 21:37 Body Mass Index 29.0 vital signs have been reviewed as normal and appeared to be correct. Blood pressure hypertensive 156/78 Heart rate normal. Respiration rate normal. Temperature normal. Oxygen saturation normal. Appearance: Alert. Oriented X3. No acute distress. Head: Normal external exam. Normocephalic. Eyes: PERRLA. EOMI. Conjunctiva and sclera normal. Eyelids normal. ENT: Pharynx normal. Uvula midline. Moist mucous membranes. Neck: Normal inspection. Neck supple. FROM. No adenopathy. No meningeal signs. CVS: Normal heart rate and rhythm. Heart sound normal. No murmurs noted. Pulses normal throughout. Respiratory: No respiratory distress. Painless inspiration. Breath sounds normal. No wheezes/rales/rhonchi noted. Chest nontender. No accessory muscle usage noted or decreased air movement noted. Abdomen: Soft and mild suprapubic tenderness. Nondistended. No guarding. No rigidity. Bowel sounds normal in all 4 quadrants. No distention noted. No organomegaly noted. No visible injury noted. No rebound tenderness. Negative Rovsing sign. Negative obturator's sign. Negative psoas sign. Negative Brown sign. Back: No CVA tenderness. Full range of motion noted. Skin: Skin warm and dry. Normal skin color. Normal skin turgor. No rashes/lesions/lacerations noted. Extremities: Extremities exhibit normal range of motion Neuro: Oriented X 3. No motor deficit. No sensory deficit. Reflexes normal. Normal steady gait. Course Course Course Narrative: 22:25pm - 70 y/o female with history of HTN, CAD, hx NSTEMI in 2015, hx SVT, hypothyroidism, carpal tunnel syndrome, osteoarthritis, chronic back pain, anxiety, and recurrent UTI's?who has been seen in this ER 4 times in the past 2 weeks for similar complaint presenting to the ED today with complaints of suprapubic abdominal pain worse with urination that has been intermittent over the past few days despite completing a course of antibiotics per the patient. She reports when she was at home today her symptoms worsened this is why she came here for further evaluation treatment. She reports chronic back pain and left knee pain which she has pending x-rays from her primary care provider Sammy Cordova PA-C although she is unsure of the results. Patient has been seen here 4 times in the past 2 weeks on 07/15/2021 which were all within normal limits. She had a UA on 07/12/2021 on 07/15/2021 on 07/18/2021 which were all positive for nitrates. Then on 07/21/2021 and 07/26/2021 she had negative nitrates. Patient had imaging of her lumbar spine and left knee by her primary care provider today which are still pending when I look in our system. Of her bilateral knees on 07/20/2021 which revealed tricompartment osteoarthritic to left knee most pronounced at the medial joint space compartment where it is severe. Secondary varus configuration was also noted. Otherwise no other acute processes were noted. She also had a lumbar spine x-ray done on 01/13/2021 which revealed chronic changes no acute processes. At this time patient is alert and oriented x3. Not in any acute distress. It appears that the symptoms have been going on for quite a long time and she has been seen by multiple providers along with her primary care provider and ER. Therefore Plan is to obtain a UA, CT scan abdomen pelvis without IV contrast to evaluate for possible kidney stones or any other acute processes and re-evaluate. Reevaluation(s) Reevaluation #1: - CT scan abdomen and pelvis without IV contrast negative for any acute processes. - UA positive for nitrates and it appears that when the patient was prescribed Macrobid it cleared her urinary tract infection therefore will represcribed Macrobid. Will also DC home with instructions to continue taking her previously prescribed medications for pain as previously prescribed and to follow up her primary care provider. Patient understands agrees with this plan. Time: 23:10 [facility] - Abdominal Pain Medical Records Attestation: I reviewed the patient's medical records. Lab Data Attestation: I reviewed the patient's lab results. Labs: Lab Results 07/27/21 Range/Units 22:24 Urine Color YELLOW Urine Appearance CLEAR Urine pH 5.5 (5.0-8.0) Ur Specific Cherry 1.010 (1.005-1.025) Urine Protein NEG (NEG-TRACE) MG/DL Urine Glucose (UA) NEG (NEG) MG/DL Urine Ketones NEG (NEG) MG/DL Urine Blood NEG (NEG) Urine Nitrite POS H (NEG) Ur Leukocyte Esterase NEG (NEG) Urine RBC 0 (0) /HPF Urine WBC 0-2 (0-4) /HPF Ur Squamous Epith Cells 1+ /LPF Urine Bacteria TRACE /LPF Imaging Data Lumbar spine x-ray on 01/13/2021: Attestation: I personally reviewed and interpreted this imaging study as follows: Radiologist's impression: FINDINGS: There are no acute fractures. There is stable anterolisthesis of L4 in relation to L5. There is persistent disc height loss at L4/L5 and L5/S1. The remaining lumbar vertebra are in normal alignment. There is advanced facet arthropathy. XR/XR lumbar spine 2-3V IMPRESSION: ? Stable degenerative change without evidence of acute injury. Left knee x-ray: Attestation: I personally reviewed and interpreted this imaging study as follows: Radiologist's impression: FINDINGS: There are no acute fractures. There is stable anterolisthesis of L4 in relation to L5. There is persistent disc height loss at L4/L5 and L5/S1. The remaining lumbar vertebra are in normal alignment. There is advanced facet arthropathy. XR/XR lumbar spine 2-3V IMPRESSION: ? Stable degenerative change without evidence of acute injury. CT scan abdomen pelvis without IV contrast: Attestation: I personally reviewed and interpreted this imaging study as follows: Radiologist's impression: FINDINGS: LUNG BASES: The visualized lung bases are unremarkable.? LIVER, GALLBLADDER, AND BILIARY TREE: The liver is normal in size, shape, and attenuation. No focal hepatic lesion or biliary ductal dilatation is present. Gallbladder unremarkable.? PANCREAS: Unremarkable.? SPLEEN: Unremarkable.? ADRENAL GLANDS: Unremarkable.? KIDNEYS AND URETERS: The kidneys are normal in size, shape, and attenuation. No hydronephrosis, hydroureter, or calculi seen. No perinephric stranding. ? BLADDER: Unremarkable.? GASTROINTESTINAL TRACT: Scattered colonic diverticula, most concentrated within the sigmoid colon. No evidence of diverticulitis. Normal appendix. Stomach and small bowel unremarkable.? ABDOMINAL WALL: No significant hernia is appreciated.? LYMPH NODES: Normal. VASCULAR: Aorta is atherosclerotic but normal caliber. PELVIC VISCERA: Hysterectomy. No adnexal abnormalities.? OSSEOUS STRUCTURES: No acute or suspicious osseous abnormalities. Degenerative changes present throughout the imaged spine with vacuum disc phenomena at L3-L4, L4-L5 and L5-S1. Assuming 12 paired ribs, S1 is lumbarized with rudimentary disc at S1-S2. CT/CT abdomen pelvis wo con IMPRESSION: *? Images degraded by motion artifact. *? No potential etiology for the patient's symptomatology is identified. *? Pancolonic diverticulosis, most concentrated within sigmoid colon. No evidence of diverticulitis. *? Hysterectomy? Discharge Plan Discharge Clinical Impression: UTI (urinary tract infection) Patient Disposition: Home, Self-Care Instructions: Urinary Tract Infection in Older Adults (ED) Prescriptions: New nitrofurantoin monohyd/m-cryst [Macrobid] 100 mg capsule 100 mg PO BID 7 Days Qty: 14 RF: 0 No Action omeprazole 20 mg capsule,delayed release(DR/EC) 20 mg PO DAILY Qty: 90 RF: 2 glipizide 2.5 mg tablet extended release 24hr 2.5 mg PO DAILY Qty: 30 RF: 0 lorazepam 0.5 mg tablet 0.5 mg PO BEDTIME PRN (Reason: anxiety) Qty: 30 RF: 2 atenolol 25 mg tablet 12.5 mg PO DAILY Qty: 15 RF: 3 ibuprofen 600 mg tablet 600 mg PO Q8H Qty: 90 RF: 2 tramadol 50 mg tablet 50 mg PO BID PRN (Reason: pain (scale score 7-10)) 15 Days Qty: 30 RF: 0 simvastatin 40 mg tablet 40 mg PO BEDTIME 90 Days Qty: 90 RF: 1 fluticasone propionate [Flonase Allergy Relief] 50 mcg/actuation spray,suspension 2 spray intranasal DAILY 30 Days Qty: 16 RF: 0 sertraline [Zoloft] 25 mg tablet 25 mg PO DAILY 30 Days Qty: 30 RF: 1 phenazopyridine [Pyridium] 100 mg tablet 100 mg PO TID PRN (Reason: pain) 5 Days Qty: 15 RF: 0 estradiol 0.01 % (0.1 mg/gram) cream See Rx Instructions .Route DAILY 30 Days Qty: 42.5 RF: 2 oxycodone 5 mg tablet 5 mg PO BID PRN (Reason: pain) 5 Days Qty: 10 RF: 0 hydrocortisone 2.5 % cream 1 appl topical TID PRN (Reason: itching) Qty: 28 RF: 0 meloxicam [Mobic] 7.5 mg tablet 7.5 mg PO DAILY Qty: 30 RF: 0 diclofenac sodium 1 % gel 2 g topical QID Qty: 100 RF: 0 lisinopril 2.5 mg tablet 2.5 mg PO DAILY Qty: 90 RF: 2 metformin 500 mg tablet extended release 24 hr 1,000 mg PO BID 30 Days Qty: 120 RF: 4 levothyroxine 50 mcg tablet 50 mcg PO QAM RF: 0 triamcinolone acetonide 0.1 % cream topical DAILY RF: 0 estradiol 0.5 mg tablet 0.5 mg PO DAILY Qty: 90 RF: 0 cyclobenzaprine 5 mg tablet 5 mg PO TID PRN (Reason: muscle spasm) Qty: 14 RF: 0 lidocaine [Aspercreme (lidocaine HCl)] 4 % adhesive patch,medicated 1 patch topical DAILY PRN (Reason: pain) Qty: 10 RF: 0 latanoprost 0.005 % drops 1 drp ophthalmic (eye) BEDTIME RF: 0 Referrals: Sammy Cordova PA-C [Physician [employer]] - 2 days Print Language: Ethiopian [facility] Past Medical History Attestation statement: The following information was validated with the patient. Medical History Acute sinusitis Cardiac arrhythmia Chest pain Diabetes Dysuria Dysuria Flank pain HTN (hypertension) Left knee pain Post-menopausal Recurrent UTI Rib pain on right side Sinusitis Urinary frequency Urinary tract infection Yeast infection of the vagina Surgical History H/O: hysterectomy History of cardiac radiofrequency ablation Family History Family History Father CVD (cardiovascular disease) Mother No problems noted. Social History Social History Housing: House Alcohol intake: current Alcohol intake frequency: holidays/special occasions only Alcohol type: beer and wine Patient Tobacco Use Status: Former Tobacco user e-Cigarette/Vaping Use: Never Used Second Hand Smoke Exposure: Yes Advance Directives: No Advance Directives Information Provided: No service: No Current occupational status: retired Current occupation: rt handed
[2021-07-27 22:41] LABS: Squamous Epithelial Cell Urine 1+ /LPF
--- NOTE | 2021-07-27 22:41 | PC.NURSE ---
PT AMBULATING WITH STEADY GAIT TO RESTROOM TO GET URINE SAMPLE.
[2021-07-27 22:42] LABS: Bacteria Urine TRACE /LPF; RBC Urine 0 /HPF (0); WBC Urine 0-2 /HPF (0-4)
[2021-07-27] MEDS: Phenazopyridine HCL 100 MG TABLET PO (23:33)
[2021-07-27] MEDS: Acetaminophen 325 MG TABLET 975 MG PO (23:33)
[2021-07-27] MEDS: Nitrofurantoin Monohyd/M-Cryst 100 MG CAPSULE PO (23:33)
== END 2021-07-28 | disposition home or self-care (01) ==
PROVIDERS: Physician Assistant Medical; Emergency Provider Emergency Medicine
DX: N39.0 Urinary tract infection, site not specified (principal); I10 Essential (primary) hypertension; E11.9 Type 2 diabetes mellitus without complications; I25.10 Atherosclerotic heart disease of native coronary artery without angina pectoris; I25.2 Old myocardial infarction; Z87.440 Personal history of urinary (tract) infections; Z79.1 Long term (current) use of non-steroidal anti-inflammatories (NSAID); Z79.899 Other long term (current) drug therapy
CPT/HCPCS: 74176; 81001; 87086; 99284

== ENCOUNTER 2021-07-31 10:59 | Outpatient (REF) | payer MEDICARE, SELFPAY ==
--- NOTE | ~2021-07-31 | MR_ITS ---
EXAMINATION: MR KNEE WITHOUT CONTRAST, LEFT CLINICAL INFORMATION: Left knee pain and swelling. Burning sensation anteriorly. Anterior pain. Swelling up to groin. COMPARISON: Left knee radiographs dated 07/27/2021 TECHNIQUE: MRI of the knee without contrast was performed using routine sequences on a high-field scanner. FINDINGS: Evaluation is limited secondary to patient motion. MENISCI: Medial Meniscus: Attenuation and irregularity of the posterior root, consistent with near-complete irregular tearing. Degenerative signal extending into the posterior horn and body where there is nondisplaced oblique tibial articular surface tearing. The meniscal body is medially extruded. Lateral Meniscus: Complex fraying/tearing of the anterior horn/root junction. LIGAMENTS: Cruciate: Attenuation of the anterior cruciate ligament, consistent with a chronic partial tear. Intact posterior cruciate ligament. No acute ligament injury. Collateral: Intact. EXTENSOR MECHANISM: Intact. ARTICULAR CARTILAGE/BONE: Patellofemoral Compartment: Diffuse patellar articular cartilage thinning with surface irregularity and signal heterogeneity. Full-thickness central trochlear articular cartilage loss with underlying subchondral cystic change. Medial trochlear articular cartilage thinning and signal heterogeneity. Marginal osteophytes. Medial Compartment: Diffuse full-thickness articular cartilage loss with prominent bony remodeling. Posterior nonweightbearing articular cartilage signal heterogeneity. Subchondral cystic change. Marginal osteophytes. Lateral Compartment: Weightbearing articular cartilage signal heterogeneity and surface irregularity. Marginal osteophytes. JOINT FLUID AND BURSAE: Small joint effusion and trace Avila's cyst. MR/MR knee LT wo con IMPRESSION: 1. Near-complete irregular tearing of the posterior horn/root with medial extrusion of the meniscal body. Probable nondisplaced oblique tibial articular surface tear of the meniscal body. 2. Complex fraying/tearing of the lateral meniscus anterior horn/root junction. 3. Probable chronic partial tear of the anterior cruciate ligament. No acute ligament injury. 4. Severe medial as well as moderate patellofemoral and mild lateral compartment osteoarthritis. Small joint effusion and trace Avila's cyst.
== END 2021-07-31 11:00 | disposition home or self-care (01) ==
LOC: HO.MRI 10:59
PROVIDERS: Visit Provider Physician Assistant
DX: M25.562 Pain in left knee (principal); G89.29 Other chronic pain
CPT/HCPCS: 73721

== ENCOUNTER → 2021-08-08 13:54 | Outpatient (BNVA) | payer MEDICARE, SELFPAY | PROVIDERS: PCP Physician Assistant; Visit Provider Urology | DX: N95.2 Postmenopausal atrophic vaginitis (principal); N32.81 Overactive bladder | CPT/HCPCS: 52000; 99212 ==

== ENCOUNTER → 2021-08-14 09:55 | Outpatient (BNVA) | payer MEDICARE, SELFPAY | PROVIDERS: PCP Physician Assistant; Visit Provider Internal Medicine | DX: M47.816 Spondylosis without myelopathy or radiculopathy, lumbar region (principal); M17.12 Unilateral primary osteoarthritis, left knee; M54.16 Radiculopathy, lumbar region; M25.562 Pain in left knee; G89.29 Other chronic pain | CPT/HCPCS: 99202 ==

== ENCOUNTER → 2021-09-11 09:47 | Outpatient (BNVA) | payer MEDICARE, SELFPAY | PROVIDERS: PCP Physician Assistant; Visit Provider Physician Assistant | DX: M17.12 Unilateral primary osteoarthritis, left knee (principal) | CPT/HCPCS: 99212; J1020 ==

== ENCOUNTER → 2021-09-18 09:45 | Outpatient (BNVA) | payer MEDICARE, SELFPAY | PROVIDERS: PCP Physician Assistant; Visit Provider Internal Medicine | DX: M47.816 Spondylosis without myelopathy or radiculopathy, lumbar region (principal) | CPT/HCPCS: 99212 ==

== ENCOUNTER 2021-09-28 12:11 | Outpatient (REF) | payer MEDICARE, SELFPAY ==
[2021-09-28 12:52] LABS: Appearance Urine CLEAR; Glucose Urine UA 100 MG/DL (NEG); Leukocyte Esterase Urine TRACE (NEG); Nitrite Urine POS (NEG); Urine Blood NEG (NEG); Urine Ketones 5 MG/DL (NEG); Urine Protein 1+ MG/DL (NEG-TRACE)
[2021-09-28 13:07] LABS: Color Urine ORANGE
[2021-09-28 13:51] LABS: Bacteria Urine 1+ /LPF; RBC Urine 0-2 /HPF (0); WBC Clumps Urine NOTED
[2021-09-28 13:52] LABS: Squamous Epithelial Cell Urine 1+ /LPF
== END 2021-09-28 12:12 | disposition home or self-care (01) ==
LOC: HO.LAB 12:11
PROVIDERS: PCP Physician Assistant; Visit Provider Urology
DX: N39.0 Urinary tract infection, site not specified (principal)
CPT/HCPCS: 81001; 87086; 87088; 87186

== ENCOUNTER → 2021-10-09 12:47 | Outpatient (BNVA) | payer MEDICARE, SELFPAY | PROVIDERS: PCP Physician Assistant | DX: N39.0 Urinary tract infection, site not specified (principal) | CPT/HCPCS: Q3014 ==

== ENCOUNTER 2021-10-10 12:29 | Emergency (ER) | payer MEDICARE, SELFPAY ==
--- NOTE | ~2021-10-10 | US_ITS ---
EXAMINATION: US VENOUS ULTRASOUND WITH DOPPLER LOWER EXTREMITY, LEFT CLINICAL INFORMATION: Swelling pain in left lower extremity COMPARISON: Ultrasound venous lower extremity left from 05/29/2021 TECHNIQUE: Ultrasound of the deep veins is performed from the hip to the calf with compression sonography and color and pulse Doppler assessment. Spectral analysis with color-flow imaging is performed. FINDINGS: There is normal venous compression and respiratory variation and augmented flow. The visualized common femoral vein, superficial femoral vein, profunda femoral vein, popliteal vein, and the trifurcation region shows no evidence of deep venous thrombosis. There is no significant popliteal fossa cyst. If the patient's symptoms persist, followup ultrasound in 5 days 7 days might be of value to exclude proximal propagation from a non-visualized calf vein. US/US venous duplex LE IMPRESSION: No DVT demonstrated in the left lower extremity.
[2021-10-10 13:42] VITALS: BP 189/79; PULSE 80; RESP 18; TEMP 36.8; O2SAT 95; BMI 29.2
[2021-10-10 14:59] LABS: Appearance Urine HAZY; Color Urine ORANGE; Glucose Urine UA 100 MG/DL (NEG); Leukocyte Esterase Urine 1+ (NEG); PH 5.5 (5.0-8.0); UACC Culture Trigger YES; Urine Blood NEG (NEG); Urine Ketones NEG (NEG); Urine Protein TRACE MG/DL (NEG-TRACE)
[2021-10-10 15:09] LABS: Bacteria Urine TRACE /LPF; RBC Urine 0 /HPF (0); Squamous Epithelial Cell Urine 1+ /LPF
[2021-10-10 21:06] VITALS: BP 183/71; PULSE 77; RESP 18; TEMP 36.8; O2SAT 96
--- NOTE | 2021-10-10 21:32 | ED.GENADULT ---
HPI - General Adult General Chief complaint: Extremity Problem Stated complaint: L Leg Pain ?DVT UTI Time Seen by Provider: 10/10/21 17:15 Source: patient Mode of arrival: ambulatory History of Present Illness HPI narrative: 71-year-old female with history chronic pain, and ongoing schedule the steroid injections the left knee as well as working with pain management for her chronic back pain and sciatica and is currently being treated for UTI with Macrobid presents for persistent left knee pain. Patient denies any associated fever, chills, diarrhea, shortness of breath, chest pain /palpitations. Related Data Home Medications Medication Instructions Recorded Confirmed triamcinolone acetonide 0.1 % applic TOPICAL DAILY 08/12/20 08/29/21 topical cream latanoprost 0.005 % eye drops 1 drp OPHTHALMIC (EYE) BEDTIME 02/08/21 08/29/21 Previous Rx's Medication Instructions Recorded hydrocortisone 2.5 % topical cream 1 appl TOPICAL TID PRN #28 g 12/18/20 diclofenac sodium 1 % topical gel 2 g TOPICAL QID #100 g 01/18/21 omeprazole 20 mg capsule,delayed 20 mg PO DAILY #90 cap 02/26/21 release glipizide 2.5 mg tablet, extended 2.5 mg PO DAILY #30 tab 05/24/21 release 24 hr lisinopril 2.5 mg tablet 2.5 mg PO DAILY #90 tab 05/30/21 lorazepam 0.5 mg tablet 0.5 mg PO BEDTIME PRN #30 tab 05/30/21 metformin 500 mg tablet,extended 1,000 mg PO BID 30 Days #120 tab 05/30/21 release 24 hr estradiol 0.5 mg tablet 0.5 mg PO DAILY #90 tab 06/15/21 ibuprofen 600 mg tablet 600 mg PO Q8H #90 tab 07/03/21 simvastatin 40 mg tablet 40 mg PO BEDTIME 90 Days #90 tab 07/04/21 fluticasone propionate 50 2 spray INTRANASAL DAILY 30 Days 07/19/21 mcg/actuation nasal #16 g spray,suspension (Flonase Allergy Relief) sertraline 25 mg tablet (Zoloft) 25 mg PO DAILY 30 Days #30 tab 07/19/21 lidocaine 4 % topical patch 1 patch TOPICAL DAILY PRN #10 ea 07/21/21 (Aspercreme (lidocaine)) cyclobenzaprine 5 mg tablet 5 mg PO TID PRN #14 tab 07/24/21 estradiol See Rx Instructions .ROUTE DAILY 07/26/21 30 Days #42.5 g ascorbic acid (vitamin C) 1,000 mg 1 g PO DAILY 90 Days #90 tab 07/28/21 tablet methenamine hippurate 1 gram tablet 1 g PO DAILY 90 Days #90 tab 08/09/21 nitrofurantoin macrocrystal 50 mg 50 mg PO DAILY 30 Days #30 cap 08/09/21 capsule prednisone 10 mg tablet 10 mg PO DAILY 6 Days #12 tab 08/10/21 levofloxacin 250 mg tablet 250 mg PO DAILY 5 Days #5 tab 08/22/21 atenolol 25 mg tablet 12.5 mg PO DAILY #15 tab 08/23/21 levothyroxine 50 mcg tablet 50 mcg PO QAM 90 Days #90 tab 08/24/21 diclofenac sodium 75 mg 75 mg PO BID 15 Days #30 tab 09/22/21 tablet,delayed release ciprofloxacin 0.3 %-dexamethasone 4 drp OTIC (EARS) BID 7 Days #7.5 10/05/21 0.1 % ear drops,suspension ml nitrofurantoin macrocrystal 100 mg 100 mg PO BID 7 Days #14 cap 10/09/21 capsule oxycodone 5 mg tablet 5 mg PO Q12H PRN 7 Days #14 tab 10/09/21 Allergies Allergy/AdvReac Type Severity Reaction Status Date / Time amoxicillin [From Augmentin] Allergy Intermediate rash Verified 10/09/21 12:50 cefuroxime [From CEFTIN] Allergy Intermediate RASH Verified 10/09/21 12:50 clavulanic acid Allergy Intermediate rash Verified 10/09/21 12:50 [From Augmentin] doxycycline [DOXYCYCLINE] Allergy Unknown HIVES Verified 10/09/21 12:50 Sulfa (Sulfonamide Allergy Unknown unknown Verified 10/09/21 12:50 Antibiotics) Review of Systems Review of Systems: Pertinent positives and negatives as stated in HPI 10 point review of systems otherwise negative. [facility] Past Medical History Source: nursing notes reviewed Medical History Acute sinusitis Cardiac arrhythmia Chest pain Diabetes Dysuria Dysuria Flank pain HTN (hypertension) Left knee pain Post-menopausal Recurrent UTI Rib pain on right side Sinusitis Urinary frequency Urinary tract infection Yeast infection of the vagina Surgical History H/O: hysterectomy History of cardiac radiofrequency ablation Family History Family History Father CVD (cardiovascular disease) Mother No problems noted. Social History Social History Housing: House Alcohol intake: current Alcohol intake frequency: holidays/special occasions only Alcohol type: beer and wine Patient Tobacco Use Status: Former Tobacco user e-Cigarette/Vaping Use: Never Used Second Hand Smoke Exposure: Yes Advance Directives: No Advance Directives Information Provided: Yes service: No Current occupational status: retired Current occupation: rt handed Cognitive needs: No Hearing needs: No Vision needs: No Physical Exam Vital Signs: Vital Signs: Last Vital Signs Temp 98.2 F 10/10/21 21:06 Pulse 77 10/10/21 21:06 Resp 18 10/10/21 21:06 BP 183/71 H 10/10/21 21:06 Pulse Ox 96 10/10/21 21:06 BMI result Body Mass Index 29.2 VITAL SIGNS: Reviewed. GENERAL: Well developed, well nourished, in no acute distress. HEAD: Normocephalic/atraumatic EYES: PERRLA, EOMI OROPHARYNX: no oral lesions noted, posterior pharynx clear LUNGS: Normal breath sounds. SpO2<96> CARDIOVASCULAR: Regular rate and rhythm without noted murmurs ABDOMEN: Soft, non-tender, non-distended with bowel sounds. MUSCULOSKELETAL: No tenderness, deformities, or effusions noted on gross inspection. EXTREMITIES: No cyanosis, clubbing or edema, Left knee without effusions/erythema/induration. SKIN: Inspection of the skin reveals no rashes NEUROLOGIC: Alert and oriented x 4. Course Course Course Narrative: 71-year-old female with history and clinical presentation can with significant osteoarthritis for which she is receiving steroid injections every 3 Months. View of 4th X note they document that patient was offered total knee replacement the patient is declining at this time. On review of pain management notes they are recommending complete clearance of patient's urinary tract and infection prior to intervention for sciatic/back pain. Patient has received a prescription for oxycodone from her primary care provider but is concerned because she has not been able access the medications because she came here. She had it venous duplex to rule out a potential clot and will receive pain medication here and then be discharged so that she has access to all of her medications and she was strongly encouraged to pursue the option of a total knee. Medical Decision Making Lab Data Labs: Lab Results 10/10/21 Range/Units 14:21 Urine Color ORANGE Urine Appearance HAZY Urine pH 5.5 (5.0-8.0) Ur Specific [place] 1.010 (1.005-1.025) Urine Protein TRACE (NEG-TRACE) MG/DL Urine Glucose (UA) 100 H (NEG) MG/DL Urine Ketones NEG (NEG) MG/DL Urine Blood NEG (NEG) Urine Nitrite TNP Ur Leukocyte Esterase 1+ H (NEG) Urine RBC 0 (0) /HPF Urine WBC 1-4 (0-4) /HPF Ur Squamous Epith Cells 1+ /LPF Urine Bacteria TRACE /LPF Urine Yeast TRACE /HPF Discharge Plan Discharge Clinical Impression: Osteoarthritis of left knee Patient Disposition: Home, Self-Care Instructions: Osteoarthritis (ED) Additional Instructions: 1. Resume all home medications as prescribed. 2. Continue with your antibiotics for your urinary tract infection. 3. Strongly consider the recommendations made by Orthopedics for possible knee replacement. 4. Follow-up with your primary care provider in the morning for re-evaluation further outpatient management. Return to the ER for acute worsening of symptoms. Prescriptions: No Action omeprazole 20 mg capsule,delayed release(DR/EC) 20 mg PO DAILY Qty: 90 RF: 2 glipizide 2.5 mg tablet extended release 24hr 2.5 mg PO DAILY Qty: 30 RF: 0 lorazepam 0.5 mg tablet 0.5 mg PO BEDTIME PRN (Reason: anxiety) Qty: 30 RF: 2 ibuprofen 600 mg tablet 600 mg PO Q8H Qty: 90 RF: 2 Hold Instructions: Doctor's Order simvastatin 40 mg tablet 40 mg PO BEDTIME 90 Days Qty: 90 RF: 1 fluticasone propionate [Flonase Allergy Relief] 50 mcg/actuation spray,suspension 2 spray intranasal DAILY 30 Days Qty: 16 RF: 0 sertraline [Zoloft] 25 mg tablet 25 mg PO DAILY 30 Days Qty: 30 RF: 1 estradiol 0.01 % (0.1 mg/gram) cream See Rx Instructions .Route DAILY 30 Days Qty: 42.5 RF: 2 ascorbic acid (vitamin C) 1,000 mg tablet 1 g PO DAILY 90 Days Qty: 90 RF: 3 methenamine hippurate 1 gram tablet 1 g PO DAILY 90 Days Qty: 90 RF: 3 nitrofurantoin macrocrystal 50 mg capsule 50 mg PO DAILY 30 Days Qty: 30 RF: 0 prednisone 10 mg tablet 10 mg PO DAILY 6 Days Qty: 12 RF: 0 Hold Instructions: Doctor's Order atenolol 25 mg tablet 12.5 mg PO DAILY Qty: 15 RF: 3 levothyroxine 50 mcg tablet 50 mcg PO QAM 90 Days Qty: 90 RF: 2 diclofenac sodium 75 mg tablet,delayed release (DR/EC) 75 mg PO BID 15 Days Qty: 30 RF: 1 ciprofloxacin-dexamethasone 0.3-0.1 % drops,suspension 4 drp otic (ears) BID 7 Days Qty: 7.5 RF: 0 oxycodone 5 mg tablet 5 mg PO Q12H PRN (Reason: pain) 7 Days Qty: 14 RF: 0 hydrocortisone 2.5 % cream 1 appl topical TID PRN (Reason: itching) Qty: 28 RF: 0 diclofenac sodium 1 % gel 2 g topical QID Qty: 100 RF: 0 lisinopril 2.5 mg tablet 2.5 mg PO DAILY Qty: 90 RF: 2 metformin 500 mg tablet extended release 24 hr 1,000 mg PO BID 30 Days Qty: 120 RF: 4 triamcinolone acetonide 0.1 % cream topical DAILY RF: 0 flu vacc [id number] 6mos up(PF) 60 mcg (15 mcg x 4)/0.5 mL syringe 0.5 ml IM ONCE Qty: 0.5 RF: 0 estradiol 0.5 mg tablet 0.5 mg PO DAILY Qty: 90 RF: 0 levofloxacin 250 mg tablet 250 mg PO DAILY 5 Days Qty: 5 RF: 0 cyclobenzaprine 5 mg tablet 5 mg PO TID PRN (Reason: muscle spasm) Qty: 14 RF: 0 lidocaine [Aspercreme (lidocaine HCl)] 4 % adhesive patch,medicated 1 patch topical DAILY PRN (Reason: pain) Qty: 10 RF: 0 latanoprost 0.005 % drops 1 drp ophthalmic (eye) BEDTIME RF: 0 nitrofurantoin macrocrystal 100 mg capsule 100 mg PO BID 7 Days Qty: 14 RF: 0 Referrals: Sammy Cordova PA-C [Primary Care Provider] - 2 days
[2021-10-10 22:09] VITALS: BP 167/72; PULSE 89; RESP 20; TEMP 36.6; O2SAT 97
[2021-10-10] MEDS: Lidocaine 4 % Patch ADH..PATCH 1 PATCH TRANSDERMA (22:34)
[2021-10-10] MEDS: oxyCODONE HCl Immed Release 5 MG TABLET PO (22:35)
== END 2021-10-10 22:42 | disposition home or self-care (01) ==
PROVIDERS: Emergency Provider Student in an Organized Health Care Education/Training Program; PCP Physician Assistant
DX: M17.12 Unilateral primary osteoarthritis, left knee (principal); M79.605 Pain in left leg; E11.9 Type 2 diabetes mellitus without complications; I10 Essential (primary) hypertension; Z87.440 Personal history of urinary (tract) infections
CPT/HCPCS: 81001; 81003; 87086; 93971; 99284

== ENCOUNTER 2021-10-12 12:12 | Outpatient (REF) | payer MEDICARE, SELFPAY ==
[2021-10-12 12:53] LABS: Estimated Average Glucose 140 mg/dL; Hemoglobin A1c % 6.5 %
[2021-10-12 13:10] LABS: Alanine Aminotransferase 13 U/L (0-31); Albumin Level 4.1 g/dL (3.5-5.0); Alkaline Phosphatase 55 U/L (39-117); Anion Gap 9 (12-20); Aspartate Amino Transferase 16 U/L (5-31); Bilirubin Total 0.5 mg/dL (0.0-1.0); Blood Urea Nitrogen 8 mg/dL (9-16); Calcium 9.7 mg/dL (8.4-10.2); Carbon Dioxide 27 mmol/L (22-29); Chloride 110 mmol/L (96-108); Cholesterol 152 mg/dL; Estimated Glomerular Filt Rate > 60; Glucose Fasting 135 mg/dL (60-99); HDL Cholesterol 39 mg/dL; LDL Cholesterol Calculated 79 mg/dl; Potassium 4.1 mmol/L (3.3-5.1); Sodium 142 mmol/L (135-145); Total Protein 6.3 g/dL (6.5-8.0); Triglycerides 174 mg/dL
[2021-10-12 13:25] LABS: TSH reflex Free T4 1.98 uIU/mL (0.32-4.0)
[2021-10-12 14:27] LABS: Appearance Urine CLEAR; Color Urine ORANGE; PH 5.5 (5.0-8.0); Specific Gravity - Urine <= 1.005 (1.005-1.025); Urine Blood NEG (NEG); Urine Ketones NEG (NEG); Urine Protein NEG (NEG-TRACE)
[2021-10-12 14:33] LABS: Creatinine Urine 13.76 mg/dL; Microalbumin Urine < 5.0 mg/L
[2021-10-12 14:41] LABS: RBC Urine 0 /HPF (0); Squamous Epithelial Cell Urine TRACE /LPF; WBC Urine 0-2 /HPF (0-4)
== END 2021-10-12 12:13 | disposition home or self-care (01) ==
LOC: HO.LAB 12:12
PROVIDERS: Urology; PCP Physician Assistant; Visit Provider Physician Assistant
DX: N39.0 Urinary tract infection, site not specified (principal); E03.9 Hypothyroidism, unspecified; I10 Essential (primary) hypertension; E11.65 Type 2 diabetes mellitus with hyperglycemia
CPT/HCPCS: 36415; 80053; 80061; 81001; 82043; 83036; 84443; 87086

== ENCOUNTER 2021-10-17 09:00 | Outpatient (RCR) | payer MEDICARE, SELFPAY ==
--- NOTE | 2021-08-08 14:11 | MHC.PT.EP ---
[facility] [place] Office [place] Office [place] Office [address] [phone] F: [phone] F: [phone] F: [phone] F: [phone] Physical Therapy Plan of Care Date of Evaluation: Date of Surgery: Diagnosis: LEFT KNEE PAIN Assessment: CHAPARRO IS A PLEASANT 70 YO FEMALE WITH INCREASING KNEE PAIN OVER THE LAST SEVERAL MONTHS. UPON EXAM SHE DEMONSTRATES IMPAIRMENTS OF DECREASED ROM AND STRENGTH OF LEFT LE, ALTERED GAIT AND BALANCE, INCREASED PAIN. FUNCTIONAL LIMITATIONS INCLUDE DECREASED ABILITY TO PERFORM WALKING, SQUATTING, BENDING, PUSHING AND PULLING, PERFORMING HOMEMAKING AND SELF CARE TASKS. HE REPORTS DECREASED ABILITY TO PARTICIPATE IN COMMUNITY AND FITNESS ACTIVITIES. Frequency and Duration: The patient will be seen 2 X WEEK FOR 3 WEEKS THEN REASSESS Short Term Goals: INITIATE HEP AND PROMOTE SELF MANAGEMENT OF SYMPTOMS. Residential Goals: IN 6 WEEKS: TO DEMONSTRATE FULL KNEE ROM, EQUAL JANAY TO DEMONSTRATE FULL LE STRENGTH, EQUAL JANAY TO ASCEND AND DESCEND STAIRS WITHOUT PAIN GREATER THAN 2/10 TO AMBULATE AD SANNA ON LEVEL AND UNEVEN SURFACES FOR FITNESS WITHOUT PAIN GREATER THAN 2/10 TO PERFORM FULL FUNCTIONAL SQUAT WITHOUT SUBSTITUTION Treatment Plan: Modalities to reduce pain, spasms and effusion. Manual therapy to restore motion and function. Therapeutic exercise to improve strength and flexibility. Neuromuscular re-education for posture and balance. Therapeutic activities to return to functional activities of daily living. Electronically signed by: KAITLYN GUZMÁN PT, DPT Please sign and return to therapist. Thank you for your referral.
--- NOTE | 2021-10-19 13:32 | MHC.PT.DC ---
[facility] [place] Office [place] Office [place] Office [address] [phone] F: [phone] F: [phone] F: [phone] F: [phone] Physical Therapy Discharge Report Diagnosis: LEFT KNEE PAIN Date of Surgery: Date of Evaluation: 08/08/21 Date of Discharge: 10/17/21 Treatments to Date: 12 Cancellations to Date: 1 No Shows to Date: 0 Discharge Status: Improved Function Independent with HEP Discharge Summary: CHAPARRO HAS MADE GRADUAL GAINS IN THERAPY ALTHOUGH HER COMPLAINTS TEND TO BE MORE RELATED TO HER BACK THAN HER KNEE. SHE HAS ATTENDED 12 VISITS OF THERAPY BUT IS STILL CHALLENGED WITH BASIC HOME PROGRAM FOR QUAD STRENGTHENING SHE IS CHALLENGED (EVEN WITH HANDOUTS ISSUED MULTIPLE TIMES) IN RECALLING HER PROGRAM. AT THIS TIME IT WOULD BE MOST APPROPRIATE FOR HER TO CONTINUE WITH HER HOME PROGRAM WE HAVE PLATEAUED IN THERAPY. Electronically signed by: KAITLYN GUZMÁN PT, DPT Please sign and return to therapist. Thank you for your referral.
== END 2021-10-19 13:33 | disposition home or self-care (01) ==
LOC: HO.PT 09:00
PROVIDERS: PCP Physician Assistant; Visit Provider Physician Assistant
DX: M17.12 Unilateral primary osteoarthritis, left knee (principal)
CPT/HCPCS: 97110; 97162; 97530

== ENCOUNTER 2021-10-20 12:05 | Outpatient (REF) | payer MEDICARE, SELFPAY ==
[2021-10-20 13:18] LABS: Appearance Urine HAZY; Color Urine ORANGE; Specific Gravity - Urine 1.015 (1.005-1.025); Urine Blood NEG (NEG)
[2021-10-20 13:25] LABS: RBC Urine 0-2 /HPF (0); Squamous Epithelial Cell Urine 2+ /LPF; WBC Urine 0-2 /HPF (0-4)
== END 2021-10-20 12:06 | disposition home or self-care (01) ==
LOC: HO.LAB 12:05
PROVIDERS: PCP Physician Assistant
DX: N39.0 Urinary tract infection, site not specified (principal)
CPT/HCPCS: 81001; 87086

== ENCOUNTER 2021-11-16 10:43 | Outpatient (REF) | payer MEDICARE, SELFPAY ==
[2021-11-16 11:31] LABS: Hematocrit 33.8 % (37.0-47.0); Hemoglobin 10.6 g/dl (12.0-16.0); Mean Corpuscular HGB Conc 31.4 g/dl (31.0-35.0); Mean Corpuscular Hemoglobin 27.4 pg (27.0-33.0); Mean Corpuscular Volume 87.3 fL (80.0-98.0); Mean Platelet Volume 9.9 fL (9.4-12.3); Platelet Count 223 X10*3/uL (160-400); Red Blood Count 3.87 X10*6/uL (4.20-5.50); Red Cell Distribution Width 12.5 % (11.0-16.0); White Blood Count 5.8 X10*3/uL (4.8-10.8)
[2021-11-16 11:44] LABS: Estimated Average Glucose 134 mg/dL; Hemoglobin A1c % 6.3 %
[2021-11-16 11:59] LABS: Appearance Urine HAZY; Color Urine ORANGE; Glucose Urine UA 100 MG/DL (NEG); Urine Blood NEG (NEG); Urine Protein 1+ MG/DL (NEG-TRACE)
[2021-11-16 12:08] LABS: Alanine Aminotransferase 11 U/L (0-31); Albumin Level 4.1 g/dL (3.5-5.0); Alkaline Phosphatase 68 U/L (39-117); Anion Gap 11 (12-20); Aspartate Amino Transferase 14 U/L (5-31); Bilirubin Total 0.5 mg/dL (0.0-1.0); Blood Urea Nitrogen 9 mg/dL (9-16); Carbon Dioxide 27 mmol/L (22-29); Chloride 109 mmol/L (96-108); Cholesterol 163 mg/dL; Estimated Glomerular Filt Rate > 60; Glucose Fasting 162 mg/dL (60-99); HDL Cholesterol 45 mg/dL; LDL Cholesterol Calculated 91 mg/dl; Potassium 4.5 mmol/L (3.3-5.1); Sodium 142 mmol/L (135-145); Total Protein 6.7 g/dL (6.5-8.0); Triglycerides 138 mg/dL
[2021-11-16 12:31] LABS: TSH reflex Free T4 1.32 uIU/mL (0.32-4.0)
[2021-11-16 12:33] LABS: UACC Culture Trigger NO
[2021-11-16 12:34] LABS: RBC Urine 0 /HPF (0); Squamous Epithelial Cell Urine TRACE /LPF; WBC Urine 0-2 /HPF (0-4)
== END 2021-11-16 10:44 | disposition home or self-care (01) ==
LOC: HO.LAB 10:43
PROVIDERS: PCP Physician Assistant; Visit Provider Physician Assistant
DX: E11.65 Type 2 diabetes mellitus with hyperglycemia (principal); I10 Essential (primary) hypertension; E03.9 Hypothyroidism, unspecified
CPT/HCPCS: 36415; 80053; 80061; 81001; 81003; 83036; 84443; 85027

== ENCOUNTER 2021-11-30 12:23 | Outpatient (REF) | payer MEDICARE, SELFPAY ==
[2021-11-30 14:22] LABS: Appearance Urine HAZY; Color Urine ORANGE; Leukocyte Esterase Urine 1+ (NEG); Nitrite Urine POS (NEG); UACC Culture Trigger YES; Urine Blood NEG (NEG); Urine Protein 1+ MG/DL (NEG-TRACE)
[2021-11-30 14:34] LABS: Bacteria Urine 1+ /LPF; Mucus Urine 2+ /LPF; RBC Urine 0-2 /HPF (0); Squamous Epithelial Cell Urine 2+ /LPF
[2021-11-30 14:35] LABS: Hyaline Casts Urine 0-2 /LPF
== END 2021-11-30 12:24 | disposition home or self-care (01) ==
LOC: HO.LAB 12:23
PROVIDERS: PCP Physician Assistant; Visit Provider Physician Assistant
DX: R30.0 Dysuria (principal); N39.0 Urinary tract infection, site not specified
CPT/HCPCS: 81001; 87086

== ENCOUNTER 2021-12-13 09:02 | Outpatient (REF) | payer MEDICARE, SELFPAY | END 2021-12-13 09:03 | disposition home or self-care (01) | LOC: HO.LAB 09:02 | PROVIDERS: PCP Physician Assistant; Visit Provider Urology | DX: N32.81 Overactive bladder (principal); N39.0 Urinary tract infection, site not specified | CPT/HCPCS: 51798; 87086; 87088; 87186; 99212 ==

== ENCOUNTER → 2021-12-29 10:03 | Outpatient (BNVA) | payer MEDICARE, SELFPAY | PROVIDERS: PCP Physician Assistant; Visit Provider Dietitian, Registered | DX: E11.65 Type 2 diabetes mellitus with hyperglycemia (principal) | CPT/HCPCS: 97802 ==

== ENCOUNTER 2022-01-01 08:53 | Outpatient (REF) | payer MEDICARE, SELFPAY ==
[2022-01-02 13:04] LABS: BV Int Neg Control Negative (Negative); BV Int Pos Control Positive (Positive)
== END 2022-01-01 08:54 | disposition home or self-care (01) ==
LOC: HO.LAB 08:53
PROVIDERS: PCP Physician Assistant; Visit Provider Advanced Practice Midwife
DX: Z01.411 Encounter for gynecological examination (general) (routine) with abnormal findings (principal); N89.8 Other specified noninflammatory disorders of vagina; N39.0 Urinary tract infection, site not specified
CPT/HCPCS: 87480; 87510; 87660; 99202

== ENCOUNTER 2022-01-09 14:48 | Outpatient (REF) | payer MEDICARE, SELFPAY ==
[2022-01-09 16:17] LABS: Appearance Urine CLEAR; Color Urine ORANGE; Glucose Urine UA 100 MG/DL (NEG); Specific Gravity - Urine 1.015 (1.005-1.025); UACC Culture Trigger YES; Urine Blood NEG (NEG); Urine Ketones 5 MG/DL (NEG); Urine Protein 1+ MG/DL (NEG-TRACE)
[2022-01-09 16:29] LABS: Bacteria Urine TRACE /LPF; Mucus Urine TRACE /LPF; RBC Urine 0 /HPF (0); Squamous Epithelial Cell Urine TRACE /LPF; WBC Urine 0-2 /HPF (0-4)
== END 2022-01-09 14:49 | disposition home or self-care (01) ==
LOC: HO.LAB 14:48
PROVIDERS: PCP Physician Assistant; Visit Provider Physician Assistant
DX: R30.0 Dysuria (principal); N39.0 Urinary tract infection, site not specified; R07.81 Pleurodynia
CPT/HCPCS: 81001; 81003; 87086

== ENCOUNTER 2022-01-13 10:35 | Outpatient (REF) | payer MEDICARE, SELFPAY ==
--- NOTE | ~2022-01-13 | MM_ITS ---
EXAMINATION: MM SCREENING DIGITAL BREAST TOMOSYNTHESIS, BILATERAL CLINICAL INFORMATION: Screening. Asymptomatic. The lifetime risk of breast cancer based on the Tyrer-Cuzick Model is 3%. COMPARISON: Mammography: 05/09/2020, 05/04/2019, 04/22/2018 TECHNIQUE: Digital breast tomosynthesis is performed in both the craniocaudal and mediolateral oblique views along with computer-aided detection (CAD). Synthesized 2D images are generated from the tomosynthesis. Additional right MLO and left CC views are provided. FINDINGS: The breasts are heterogeneously dense, which may obscure small masses (ACR BI-RADS breast composition Category c). There are no significant masses, abnormal calcifications, or other abnormalities. Parenchymal pattern is similar to prior studies. There is no developing density or architectural abnormality. There are scattered bilateral benign round and rim calcifications again noted. The axilla and skin contours are unremarkable. No significant changes. MM/MM tomosynthesis screening BI IMPRESSION: No mammographic evidence of malignancy. ASSESSMENT: BI-RADS 2: Benign RECOMMENDATION: Routine annual mammography screening. This patient's information was entered into a reminder system with a target due date for their next mammogram.
== END 2022-01-13 10:36 | disposition home or self-care (01) ==
LOC: HO.MAMMO 10:35
PROVIDERS: Visit Provider Physician Assistant
DX: Z12.31 Encounter for screening mammogram for malignant neoplasm of breast (principal)
CPT/HCPCS: 77063; 77067

== ENCOUNTER 2022-01-15 15:24 | Outpatient (REF) | payer MEDICARE, SELFPAY ==
--- NOTE | ~2022-01-15 | US_ITS ---
EXAMINATION: US VENOUS ULTRASOUND WITH DOPPLER LOWER EXTREMITY, LEFT CLINICAL INFORMATION: Localized edema COMPARISON: None TECHNIQUE: Ultrasound of the deep veins is performed from the hip to the calf with compression sonography and color and pulse Doppler assessment. Spectral analysis with color-flow imaging is performed. FINDINGS: There is normal venous compression and respiratory variation and augmented flow. The visualized common femoral vein, superficial femoral vein, profunda femoral vein, popliteal vein, and the trifurcation region shows no evidence of deep venous thrombosis. There is no significant popliteal fossa cyst. If the patient's symptoms persist, followup ultrasound in 5 days 7 days might be of value to exclude proximal propagation from a non-visualized calf vein. US/US venous duplex LE LT IMPRESSION: No DVT demonstrated in the left lower extremity.
== END 2022-01-15 15:25 | disposition home or self-care (01) ==
LOC: HO.US 15:24
PROVIDERS: PCP Physician Assistant; Visit Provider Nurse Practitioner Family
DX: M79.605 Pain in left leg (principal); R60.0 Localized edema
CPT/HCPCS: 93971

== ENCOUNTER 2022-01-24 11:25 | Outpatient (REF) | payer MEDICARE, SELFPAY ==
[2022-01-24 11:50] LABS: Hemoglobin 10.7 g/dl (12.0-16.0); Mean Corpuscular HGB Conc 31.5 g/dl (31.0-35.0); Mean Corpuscular Hemoglobin 26.4 pg (27.0-33.0); Mean Corpuscular Volume 83.7 fL (80.0-98.0); Mean Platelet Volume 10.2 fL (9.4-12.3); Platelet Count 217 X10*3/uL (160-400); Red Blood Count 4.06 X10*6/uL (4.20-5.50); Red Cell Distribution Width 12.9 % (11.0-16.0); White Blood Count 6.6 X10*3/uL (4.8-10.8)
[2022-01-24 12:16] LABS: Estimated Average Glucose 140 mg/dL; Hemoglobin A1C 140.4657 umol/L; Hemoglobin A1c % 6.5 %
[2022-01-24 12:52] LABS: TSH reflex Free T4 3.49 uIU/mL (0.32-4.0)
[2022-01-24 12:54] LABS: Alanine Aminotransferase 15 U/L (0-31); Albumin Level 3.9 g/dL (3.5-5.0); Alkaline Phosphatase 76 U/L (39-117); Anion Gap 14 (12-20); Aspartate Amino Transferase 17 U/L (5-31); Bilirubin Total 0.4 mg/dL (0.0-1.0); Blood Urea Nitrogen 12 mg/dL (9-16); Carbon Dioxide 23 mmol/L (22-29); Chloride 109 mmol/L (96-108); Cholesterol 205 mg/dL; Estimated Glomerular Filt Rate > 60; Glucose Fasting 146 mg/dL (60-99); HDL Cholesterol 37 mg/dL; LDL Cholesterol Calculated 130 mg/dl; Potassium 4.7 mmol/L (3.3-5.1); Sodium 141 mmol/L (135-145); Total Protein 6.4 g/dL (6.5-8.0); Triglycerides 193 mg/dL
[2022-01-24 13:21] LABS: Appearance Urine CLEAR; Color Urine YELLOW; Glucose Urine UA NEG (NEG); Leukocyte Esterase Urine NEG (NEG); Nitrite Urine NEG (NEG); Urine Blood NEG (NEG); Urine Ketones NEG (NEG); Urine Protein NEG (NEG-TRACE)
[2022-01-24 13:38] LABS: RBC Urine 0 /HPF (0); Squamous Epithelial Cell Urine 2+ /LPF
== END 2022-01-24 11:26 | disposition home or self-care (01) ==
LOC: HO.LAB 11:25
PROVIDERS: Absent Provider Physician Assistant; PCP Physician Assistant; Visit Provider Urology
DX: N39.0 Urinary tract infection, site not specified (principal); E11.65 Type 2 diabetes mellitus with hyperglycemia; I10 Essential (primary) hypertension
CPT/HCPCS: 36415; 80053; 80061; 81001; 83036; 84443; 85027; 87086

== ENCOUNTER 2022-02-03 09:55 | Outpatient (REF) | payer MEDICARE, SELFPAY ==
[2022-02-03 10:42] LABS: Appearance Urine HAZY; Color Urine YELLOW; Glucose Urine UA NEG (NEG); Leukocyte Esterase Urine 1+ (NEG); Nitrite Urine NEG (NEG); Urine Blood NEG (NEG); Urine Ketones NEG (NEG); Urine Protein NEG (NEG-TRACE)
[2022-02-03 11:01] LABS: Squamous Epithelial Cell Urine 2+ /LPF
[2022-02-03 11:02] LABS: Mucus Urine 1+ /LPF; RBC Urine 0-2 /HPF (0)
== END 2022-02-03 09:56 | disposition home or self-care (01) ==
LOC: HO.LAB 09:55
PROVIDERS: PCP Physician Assistant; Visit Provider Urology
DX: N39.0 Urinary tract infection, site not specified (principal)
CPT/HCPCS: 81001; 87086

== ENCOUNTER 2022-02-09 09:46 | Outpatient (REF) | payer MEDICARE, SELFPAY ==
[2022-02-09 10:46] LABS: Appearance Urine CLEAR; Color Urine YELLOW; Glucose Urine UA NEG (NEG); Leukocyte Esterase Urine TRACE (NEG); Nitrite Urine POS (NEG); UACC Culture Trigger YES; Urine Blood NEG (NEG); Urine Ketones NEG (NEG); Urine Protein NEG (NEG-TRACE)
[2022-02-09 11:05] LABS: Bacteria Urine TRACE /LPF; Squamous Epithelial Cell Urine 1+ /LPF; WBC Urine 0-2 /HPF (0-4)
[2022-02-09 11:06] LABS: RBC Urine 0 /HPF (0)
== END 2022-02-09 09:47 | disposition home or self-care (01) ==
LOC: HO.LAB 09:46
PROVIDERS: PCP Physician Assistant; Visit Provider Physician Assistant
DX: Z13.89 Encounter for screening for other disorder (principal)
CPT/HCPCS: 81001; 87086

== ENCOUNTER 2022-02-24 10:26 | Outpatient (REF) | payer MEDICARE, SELFPAY ==
[2022-02-24 11:28] LABS: Appearance Urine HAZY; Color Urine DK YELLOW; Glucose Urine UA NEG (NEG); Leukocyte Esterase Urine 1+ (NEG); Nitrite Urine POS (NEG); Specific Gravity - Urine <= 1.005 (1.005-1.025); UACC Culture Trigger YES; Urine Blood NEG (NEG); Urine Ketones NEG (NEG); Urine Protein NEG (NEG-TRACE)
[2022-02-24 12:00] LABS: Bacteria Urine TRACE /LPF; Mucus Urine 1+ /LPF; RBC Urine 0 /HPF (0); Squamous Epithelial Cell Urine 1+ /LPF; UACC CULT YES
== END 2022-02-24 10:27 | disposition home or self-care (01) ==
LOC: HO.LAB 10:26
PROVIDERS: PCP Physician Assistant; Visit Provider Physician Assistant
DX: N39.0 Urinary tract infection, site not specified (principal)
CPT/HCPCS: 81001; 81003; 87086

== ENCOUNTER 2022-03-15 12:39 | Outpatient (REF) | payer MEDICARE, SELFPAY ==
[2022-03-15 13:47] LABS: Appearance Urine CLEAR; Color Urine DK YELLOW; Glucose Urine UA NEG (NEG); Leukocyte Esterase Urine 1+ (NEG); Nitrite Urine POS (NEG); PH 5.5 (5.0-8.0); Urine Blood NEG (NEG); Urine Ketones NEG (NEG); Urine Protein NEG (NEG-TRACE)
[2022-03-15 14:17] LABS: Bacteria Urine 2+ /LPF; RBC Urine 0 /HPF (0); Squamous Epithelial Cell Urine 3+ /LPF
== END 2022-03-15 12:40 | disposition home or self-care (01) ==
LOC: HO.LAB 12:39
PROVIDERS: Urology; PCP Physician Assistant; Visit Provider Physician Assistant
DX: N39.0 Urinary tract infection, site not specified (principal)
CPT/HCPCS: 81001

== ENCOUNTER 2022-04-06 11:38 | Outpatient (REF) | payer MEDICARE, SELFPAY ==
[2022-04-06 13:15] LABS: Appearance Urine HAZY; Color Urine ORANGE; Glucose Urine UA NEG (NEG); Leukocyte Esterase Urine TRACE (NEG); Urine Blood NEG (NEG); Urine Ketones NEG (NEG); Urine Protein TRACE MG/DL (NEG-TRACE)
[2022-04-06 13:26] LABS: UACC Culture Trigger NO
[2022-04-06 13:27] LABS: Mucus Urine 1+ /LPF; RBC Urine 0 /HPF (0); Squamous Epithelial Cell Urine 1+ /LPF
== END 2022-04-06 11:39 | disposition home or self-care (01) ==
LOC: HO.LAB 11:38
PROVIDERS: PCP Physician Assistant; Visit Provider Physician Assistant
DX: R30.0 Dysuria (principal)
CPT/HCPCS: 81001; 81003

== ENCOUNTER 2022-04-18 12:40 | Outpatient (REF) | payer MEDICARE, SELFPAY ==
[2022-04-18 13:28] LABS: Appearance Urine CLEAR; Color Urine YELLOW; Glucose Urine UA NEG (NEG); Leukocyte Esterase Urine 1+ (NEG); Nitrite Urine POS (NEG); PH 5.5 (5.0-8.0); UACC Culture Trigger YES; Urine Blood NEG (NEG); Urine Ketones NEG (NEG); Urine Protein NEG (NEG-TRACE)
[2022-04-18 14:01] LABS: Bacteria Urine TRACE /LPF; RBC Urine 0 /HPF (0); Squamous Epithelial Cell Urine 2+ /LPF
== END 2022-04-18 12:41 | disposition home or self-care (01) ==
LOC: HO.LAB 12:40
PROVIDERS: PCP Physician Assistant; Visit Provider Physician Assistant
DX: R30.0 Dysuria (principal)
CPT/HCPCS: 81001; 87086; 87088; 87186

== ENCOUNTER 2022-05-01 14:17 | Outpatient (REF) | payer MEDICARE, SELFPAY ==
--- NOTE | ~2022-05-01 | XR_ITS ---
EXAMINATION: XR PELVIS CLINICAL INFORMATION: Pelvic and perineal pain COMPARISON: None TECHNIQUE: AP view of the pelvis. FINDINGS: The bones and soft tissues are normal. No fracture. Sacroiliac and hip joints are normal. Pubic symphysis is normal. No abnormal soft tissue calcifications. XR/XR pelvis 1-2V IMPRESSION: Unremarkable pelvic exam.
[2022-05-01 17:44] LABS: Hematocrit 32.7 % (37.0-47.0); Hemoglobin 10.5 g/dl (12.0-16.0); Mean Corpuscular HGB Conc 32.1 g/dl (31.0-35.0); Mean Corpuscular Hemoglobin 26.1 pg (27.0-33.0); Mean Corpuscular Volume 81.3 fL (80.0-98.0); Platelet Count 300 X10*3/uL (160-400); Red Blood Count 4.02 X10*6/uL (4.20-5.50); Red Cell Distribution Width 13.2 % (11.0-16.0); White Blood Count 9.4 X10*3/uL (4.8-10.8)
[2022-05-01 17:57] LABS: Alanine Aminotransferase 10 U/L (0-31); Albumin Level 4.1 g/dL (3.5-5.0); Alkaline Phosphatase 73 U/L (39-117); Anion Gap 13 (12-20); Aspartate Amino Transferase 11 U/L (5-31); Bilirubin Total 0.4 mg/dL (0.0-1.0); Blood Urea Nitrogen 14 mg/dL (9-16); Calcium 9.4 mg/dL (8.4-10.2); Carbon Dioxide 23 mmol/L (22-29); Chloride 106 mmol/L (96-108); Estimated Glomerular Filt Rate > 60; Glucose Random 103 mg/dL (60-115); Potassium 4.6 mmol/L (3.3-5.1); Sodium 137 mmol/L (135-145); Total Protein 6.7 g/dL (6.5-8.0)
== END 2022-05-01 14:18 | disposition home or self-care (01) ==
LOC: HO.XRAY 14:17
PROVIDERS: Absent Provider Emergency Medicine; PCP Physician Assistant; Visit Provider Physician Assistant
DX: R10.2 Pelvic and perineal pain (principal); R53.83 Other fatigue
CPT/HCPCS: 36415; 72170; 80053; 85027; 87086

== ENCOUNTER 2022-05-04 12:02 | Outpatient (REF) | payer MEDICARE, SELFPAY ==
[2022-05-04 13:07] LABS: Appearance Urine CLEAR; Color Urine YELLOW; Glucose Urine UA NEG (NEG); Leukocyte Esterase Urine TRACE (NEG); Nitrite Urine NEG (NEG); Specific Gravity - Urine 1.025 (1.005-1.025); Urine Blood NEG (NEG); Urine Ketones NEG (NEG); Urine Protein NEG (NEG-TRACE)
[2022-05-04 14:36] LABS: Bacteria Urine 1+ /LPF; RBC Urine 0-2 /HPF (0); Squamous Epithelial Cell Urine 3+ /LPF
== END 2022-05-04 12:03 | disposition home or self-care (01) ==
LOC: HO.LAB 12:02
PROVIDERS: PCP Physician Assistant; Visit Provider Physician Assistant
DX: R30.0 Dysuria (principal)
CPT/HCPCS: 81001; 81003; 87086

== ENCOUNTER 2022-05-22 15:35 | Outpatient (REF) | payer MEDICARE, SELFPAY ==
[2022-05-22 16:47] LABS: Hematocrit 31.4 % (37.0-47.0); Hemoglobin 9.7 g/dl (12.0-16.0); Mean Corpuscular HGB Conc 30.9 g/dl (31.0-35.0); Mean Corpuscular Hemoglobin 25.1 pg (27.0-33.0); Mean Corpuscular Volume 81.1 fL (80.0-98.0); Platelet Count 386 X10*3/uL (160-400); Red Blood Count 3.87 X10*6/uL (4.20-5.50); Red Cell Distribution Width 12.8 % (11.0-16.0); White Blood Count 11.6 X10*3/uL (4.8-10.8)
[2022-05-22 17:58] LABS: Appearance Urine CLEAR; Color Urine ORANGE; Glucose Urine UA 100 MG/DL (NEG); Leukocyte Esterase Urine NEG (NEG); Nitrite Urine POS (NEG); UACC Culture Trigger YES; Urine Blood NEG (NEG); Urine Ketones NEG (NEG); Urine Protein TRACE MG/DL (NEG-TRACE)
[2022-05-22 18:17] LABS: Bacteria Urine TRACE /LPF; Mucus Urine TRACE /LPF; RBC Urine 0-2 /HPF (0); Squamous Epithelial Cell Urine TRACE /LPF; WBC Urine 0-2 /HPF (0-4)
== END 2022-05-22 15:36 | disposition home or self-care (01) ==
LOC: HO.LAB 15:35
PROVIDERS: PCP Physician Assistant; Visit Provider Physician Assistant
DX: R19.7 Diarrhea, unspecified (principal)
CPT/HCPCS: 36415; 81001; 85027; 87086

== ENCOUNTER 2022-05-23 13:44 | Outpatient (REF) | payer MEDICARE, SELFPAY ==
[2022-05-23 15:05] LABS: Leukocytes Stool Qualitative NEGATIVE (NEGATIVE)
[2022-05-23 15:18] LABS: CDiff Gene PCR NEGATIVE (Negative)
== END 2022-05-23 13:45 | disposition home or self-care (01) ==
LOC: HO.LNP 13:44
PROVIDERS: Visit Provider Physician Assistant
DX: R19.7 Diarrhea, unspecified (principal)
CPT/HCPCS: 87338; 87493; 89055

== ENCOUNTER 2022-06-03 13:26 | Emergency (ER) | payer MEDICARE, SELFPAY ==
--- NOTE | ~2022-06-03 | CT_ITS ---
EXAMINATION: CT ABDOMEN AND PELVIS WITH CONTRAST CLINICAL INFORMATION: Lower abdominal pain, diarrhea COMPARISON: 07/27/2021 TECHNIQUE: Multidetector volumetric images were obtained from the superior aspect of the liver through the pubic symphysis following administration 85 mL of Omnipaque 350 intravenous contrast. Sagittal and coronal reformatted images were obtained on the technologist's workstation. Oral contrast: No This CT examination was performed using dose optimization techniques as appropriate, variously including the following: *Automated exposure control *Adjustment of mA and/or kV according to patient size (this includes techniques or standardized protocols for targeted exams where dose is matched to indication/reason for exam; i.e. extremities or head) *Use of iterative reconstruction technique DLP: 5:30 mGy-cm FINDINGS: LUNG BASES: Right base atelectasis. Heart size upper limits of normal. LIVER, GALLBLADDER, AND BILIARY TREE: Nodular hepatic contour consistent with cirrhosis. No focal lesion seen. Dependent hyperdensity in the gallbladder suggests a tiny gallstone. No biliary ductal dilatation. PANCREAS: Diminutive distal pancreas. No pancreatic ductal dilatation. There is fat in the medial aspect of the pancreatic head. No solid pancreatic mass seen. SPLEEN: Unremarkable. ADRENAL GLANDS: Unremarkable. KIDNEYS AND URETERS: Simple bilateral renal cysts for which no imaging follow-up is recommended symmetric bilateral renal enhancement. No hydronephrosis or calculi.. BLADDER: Unremarkable. GASTROINTESTINAL TRACT: Stomach is only partially distended. The small bowel is nondilated. There is scattered colonic diverticulosis particularly in the sigmoid colon. No colonic wall thickening to suggest colitis or diverticulitis. ABDOMINAL WALL: No significant hernia is appreciated. LYMPH NODES: No retroperitoneal or iliac lymphadenopathy. VASCULAR: Normal caliber aorta. Circumferential calcified atherosclerotic changes of the aorta. There is a recanalized paraumbilical vein. There are gastric and splenic varices. The portal venous system enhances normally. PELVIC VISCERA: Uterus not seen likely surgically absent. No adnexal mass. PERITONEUM: New from the prior study is a moderate volume of ascites. Also seen are areas of omental soft tissue nodularity highly suspicious for carcinomatosis. For example there is a 4.4 x 4 cm region of soft tissue nodularity between the distal stomach and transverse colon in the left abdomen in image 37/87. The omental nodularity extends inferiorly to the midline in image 59/87. OSSEOUS STRUCTURES: Multilevel degenerative changes. Grade 1 anterolisthesis of L4 on L5. Severe degenerative disc disease with endplate sclerosis and osteophytosis at L2-L3. CT/CT abdomen pelvis w con IMPRESSION: New moderate volume of ascites with areas of omental soft tissue nodularity, highly suspicious for peritoneal carcinomatosis. The etiology is uncertain. No adnexal mass seen. There is atrophy of the body and tail of the pancreas, a chronic finding similar in appearance to the prior study 07/27/2021, but no discrete pancreatic mass is seen. Nodular hepatic contour suggests cirrhosis.
[2022-06-03 16:18] VITALS: BP 147/63; PULSE 77; RESP 16; TEMP 37; O2SAT 97; BMI 27.6
--- NOTE | 2022-06-03 16:24 | PC.NURSE ---
STATES PCP TOLD HER SHE IS ANEMIC, PALE
[2022-06-03 17:01] LABS: Appearance Urine Clear; Color Urine Dark Yellow; Glucose Urine UA Negative (Negative); Leukocyte Esterase Urine Negative (Negative); Nitrite Urine Negative (Negative); Urine Blood Negative (Negative); Urine Ketones Negative (Negative); Urine Protein Negative (Neg-Trace)
[2022-06-03 18:27] LABS: Eosinophils Percent Auto 1.6 % (0-4); Hemoglobin 10.8 g/dl (12.0-16.0); Lymphocytes Percent Auto 21.6 % (20-40); PLT CLUMP 1; Red Blood Count 4.32 X10*6/uL (4.20-5.50); Red Cell Distribution Width 13.4 % (11.0-16.0); SCAN SMEAR FLAG 1
[2022-06-03 18:29] LABS: Basophils Percent Auto 0.3 % (0-2); Eosinophils Absolute Auto 0.2 X10*3/uL (0.0-0.4); Hematocrit 35.1 % (37.0-47.0); Imm Gran Abs Auto 0.05 X10*3/uL (0.00-0.03); Imm Gran Pct Auto 0.5 % (0.0-0.4); Lymphocytes Absolute Auto 2.1 X10*3/uL (1.2-4.9); MANUAL DIFF FLAG SCAN; Mean Corpuscular HGB Conc 30.8 g/dl (31.0-35.0); Mean Corpuscular Volume 81.3 fL (80.0-98.0); Mean Platelet Volume 9.5 fL (9.4-12.3); Monocytes Absolute Auto 0.6 X10*3/uL (0.1-1.2); Monocytes Percent Auto 6.4 % (2-11); Neutrophils Absolute Auto 6.6 x10*3/uL (2.0-8.3); Neutrophils Percent Auto 69.6 % (45-73)
[2022-06-03 18:44] LABS: Platelet Count 481 X10*3/uL (160-400); White Blood Count 9.5 X10*3/uL (4.8-10.8)
[2022-06-03 18:45] LABS: SLIDE REVIEW VERIFIED
--- NOTE | 2022-06-03 18:53 | ED_ITS ---
HPI - Abdominal Pain General Chief Complaint: Abdominal Pain Stated Complaint: GI issues Time Seen by Provider: 06/03/22 18:13 Source: patient and old records reviewed Mode of arrival: ambulatory Limitations: no limitations History of Present Illness HPI narrative: 71-year-old female with history of osteoarthritis, chronic low back pain, recurrent UTIs on prophylactic antibiotics, diabetes, anxiety, HTN, HLD, sea karuna allergies who presents to the ER for evaluation of intermittent lower abdominal pain for the last 3 weeks. She reports the pain comes and goes and is described as a sore feeling. It is worse when she moves. She reports intermittent loose stools as well as intermittent constipation over the last few weeks. She feels bloated. She started feeling nauseous yesterday but did not vomit. She says she had a small bowel movement today and yesterday. She denies any fevers, chills, urinary symptoms. She states the pain is located along her lower abdomen and is band like. It comes and goes. MD elicited complaint: abdominal pain Pertinent past history: past UTI Onset (ago): week(s) (3) Pain Consistency: intermittent Location: RLQ and LLQ Severity: moderate Pain scale (0-10): 6 Quality: aching Radiation: none Migration to: no migration Exacerbating factors: nothing Relieving factors: nothing Associated symptoms: nausea and diarrhea Related Data Home Medications Medication Instructions Recorded Confirmed latanoprost 0.005 % eye drops 1 drp ophthalmic (eye) BEDTIME 02/08/21 05/18/22 Saccharomyces boulardii 250 mg 250 mg PO BID 05/01/22 05/18/22 capsule (Daily Probiotic (S. boulardii)) Previous Rx's Medication Instructions Recorded hydrocortisone 2.5 % topical cream 1 appl topical TID PRN itching #28 12/18/20 grams diclofenac sodium 1 % topical gel 2 g topical QID #100 grams 01/18/21 ibuprofen 600 mg tablet 600 mg PO Q8H #90 tabs 07/03/21 lidocaine 4 % topical patch 1 patch topical DAILY PRN pain #10 07/21/21 (Aspercreme (lidocaine)) ea ascorbic acid (vitamin C) 1,000 mg 1 g PO DAILY 90 days #90 tabs 07/28/21 tablet metformin 500 mg tablet,extended 1,000 mg PO BID 30 days #120 tabs 10/17/21 release 24 hr dulaglutide 0.75 mg/0.5 mL 0.75 mg (0.5 mL) subcut QWEEK 4 11/16/21 subcutaneous pen injector weeks #2 mL (Trulicity) fluticasone propionate 50 2 spray intranasal DAILY 30 days 12/21/21 mcg/actuation nasal #16 grams spray,suspension (Flonase Allergy Relief) simvastatin 40 mg tablet 40 mg PO BEDTIME 90 days #90 tabs 01/26/22 omeprazole 20 mg capsule,delayed 20 mg PO DAILY #90 caps 02/02/22 release nitrofurantoin macrocrystal 100 mg 100 mg PO BID 7 days #14 caps 02/24/22 capsule estradiol 0.01% (0.1 mg/gram) See Rx Instructions .Route DAILY 03/08/22 vaginal cream #42.5 grams lisinopril 2.5 mg tablet 2.5 mg PO DAILY #90 tabs 03/15/22 lorazepam 0.5 mg tablet 0.5 mg PO BEDTIME PRN anxiety #30 03/15/22 tabs methenamine hippurate 1 gram tablet 1 g PO DAILY 90 days #90 tabs 03/22/22 levothyroxine 50 mcg tablet 50 mcg PO QAM 90 days #90 tabs 04/02/22 tamsulosin 0.4 mg capsule 0.4 mg PO DAILY 14 days #14 caps 04/17/22 ciprofloxacin HCl 250 mg tablet 250 mg PO DAILY UTI suppression 05/03/22 therapy 30 days #30 tabs acetaminophen 300 mg-codeine 30 mg 1 tab PO Q12H pain 14 days #28 tabs 05/24/22 tablet atenolol 25 mg tablet 12.5 mg PO DAILY #15 tabs 05/24/22 diclofenac sodium 75 mg 75 mg PO BID 15 days #30 tabs 05/24/22 tablet,delayed release estradiol 0.5 mg tablet 0.5 mg PO DAILY #90 tabs 05/24/22 gabapentin 300 mg capsule 300 mg PO TID 30 days #90 caps 05/24/22 lorazepam 1 mg tablet (Ativan) 1 mg PO DAILY PRN anxiety #5 tabs 06/03/22 oxycodone 5 mg tablet 5 mg PO Q8H PRN severe pain (scale 06/03/22 score 7-10) #7 tabs Allergies Allergy/AdvReac Type Severity Reaction Status Date / Time amoxicillin [From Augmentin] Allergy Intermediate rash Verified 05/30/22 08:49 cefuroxime [From CEFTIN] Allergy Intermediate RASH Verified 05/30/22 08:49 clavulanic acid Allergy Intermediate rash Verified 05/30/22 08:49 [From Augmentin] doxycycline [DOXYCYCLINE] Allergy Unknown HIVES Verified 05/30/22 08:49 Sulfa (Sulfonamide Allergy Unknown unknown Verified 05/30/22 08:49 Antibiotics) Review of Systems Review of Systems Constitutional: No Fever, No Chills ENT/Mouth: No sore throat, No Rhinorrhea, No Swallowing Difficulty Eyes: No Eye Pain, No Swelling, No Redness Cardiovascular: No Chest Pain, No SOB, No Orthopnea, No Edema Respiratory: No Cough, No Sputum, No Wheezing, No dyspnea Gastrointestinal: + Nausea, No Vomiting, + Diarrhea, + abdominal Pain, No Hematochezia, No Melena Genitourinary: No Dysuria, No Urinary Frequency, No Hematuria Musculoskeletal: No joint pain, No Myalgias Skin: No Skin Lesions, No rash Neuro: No Weakness, No Numbness, No Dizziness, No Headache Psych: + Anxiety/Panic, No Depression Heme/Lymph: No Bruising, No Lymphadenopathy Endocrine: No Polyuria, No Polydipsia PMFSH Past Medical History Medical History Acute sinusitis Cardiac arrhythmia Chest pain Diabetes Dysuria Dysuria Flank pain HTN (hypertension) Left knee pain Post-menopausal Recurrent UTI Rib pain on right side Sinusitis Urinary frequency Urinary tract infection Yeast infection of the vagina Surgical History H/O: hysterectomy History of cardiac radiofrequency ablation Family History Family History Father CVD (cardiovascular disease) Mother No problems noted. Social History Social History Housing: House Alcohol intake: current Alcohol intake frequency: holidays/special occasions only Alcohol type: beer and wine Patient Tobacco Use Status: Former Tobacco user e-Cigarette/Vaping Use: Never Used Second Hand Smoke Exposure: Yes Advance Directives: No Advance Directives Information Provided: No service: No Current occupational status: retired Current occupation: rt handed Cognitive needs: No Hearing needs: No Vision needs: Yes Physical Exam ED Vital Signs: Vital Signs - 24 hr 06/03/22 16:18 06/03/22 19:34 06/03/22 22:36 Temperature 98.6 F 98.6 F Pulse Rate 77 66 110 H Respiratory Rate 16 18 18 Blood Pressure 147/63 H 140/68 H 160/74 H Pulse Oximetry 97 95 95 Oxygen Delivery Method Room Air Room Air Room Air BMI result Body Mass Index 27.6 Appearance: Alert. Oriented X3. No acute distress. Eyes: Pupils equal, round and reactive to light. ENT: Pharynx normal. Neck: Normal inspection. Neck supple. CVS: Normal heart rate and rhythm. Pulses normal. Respiratory: No respiratory distress. Breath sounds normal. Abdomen: Obese, Softly distended, mild tenderness of the lower abdomen, no rebound or guarding. normal +BS x4 Skin: Skin warm and dry. Normal skin color. Normal skin turgor. No rashes. Extremities: No lower extremity edema. Neuro: Oriented X 3. No motor deficit. No sensory deficit. Course Course Course Narrative: 71-year-old female presenting to the ER with intermittent lower abdominal pain for the last 3 weeks. Abdominal exam is soft abdomen but distended. Mild tenderness to lower abdomen. CT scan and lab workup is pending Reevaluation(s) Reevaluation #1: Lab workup was unremarkable. Urinalysis is negative for infection. CT scan is pending. Reevaluation #2: CT scan is showing concerning signs for peritoneal carcinomatosis. This was discussed at length with the patient at the bedside, as well as with her over the phone. She is very anxious and nervous. She is reporting abdominal pain again. Will give her dose of oxycodone and Ativan now. Given p.o. trial. Reevaluation #3: Tolerating p.o.. Pain improved. Again had a long conversation with the patient and the at the bedside about the diagnosis and need for follow-up. They expressed understanding. Stable for discharge home. MDM - Abdominal Pain Lab Data Result diagrams: 06/03/22 18:22 06/03/22 19:15 Labs: Lab Results 08/21/22 08/21/22 08/21/22 Range/Units 16:51 18:22 19:15 WBC 9.5 (4.8-10.8) X10*3/uL RBC 4.32 (4.20-5.50) X10*6/uL Hgb 10.8 L (12.0-16.0) g/dl Hct 35.1 L (37.0-47.0) % MCV 81.3 (80.0-98.0) fL MCH 25.0 L (27.0-33.0) pg MCHC 30.8 L (31.0-35.0) g/dl RDW 13.4 (11.0-16.0) % Plt Count 481 H (160-400) X10*3/uL MPV 9.5 (9.4-12.3) fL Immature Gran % (Auto) 0.5 H (0.0-0.4) % Neut % (Auto) 69.6 (45-73) % Lymph % (Auto) 21.6 (20-40) % Amelia % (Auto) 6.4 (2-11) % Eos % (Auto) 1.6 (0-4) % Baso % (Auto) 0.3 (0-2) % Lymph # (Auto) 2.1 (1.2-4.9) X10*3/uL Amelia # (Auto) 0.6 (0.1-1.2) X10*3/uL Eos # (Auto) 0.2 (0.0-0.4) X10*3/uL Baso # (Auto) 0.0 (0.0-0.2) X10*3/uL Abs Immat Gran (auto) 0.05 H (0.00-0.03) X10*3/uL Absolute Neuts (auto) 6.6 (2.0-8.3) x10*3/uL Absolute Nucleated RBC 0.000 (0.0-0.012) X10*3/uL Nucleated RBC % (auto) 0.0 (0.0-0.2) /100WBC Smear Tech's Comments VERIFIED Sodium 143 (135-145) mmol/L Potassium 4.9 (3.3-5.1) mmol/L Chloride 103 (96-108) mmol/L Carbon Dioxide 28 (22-29) mmol/L Anion Gap 17 (12-20) BUN 10 (9-16) mg/dL Creatinine 0.85 (0.5-1.4) mg/dL Estim Creat Clear Calc 56.4 Estimated GFR > 60 Random Glucose 103 (60-115) mg/dL Calcium 8.9 (8.4-10.2) mg/dL Magnesium 2.4 (1.6-2.6) mg/dL Total Bilirubin 0.3 (0.0-1.0) mg/dL Direct Bilirubin 0.2 (0.0-0.5) mg/dL AST 12 (5-31) U/L ALT 6 (0-31) U/L Alkaline Phosphatase 90 D (39-117) U/L Total Protein 5.9 L (6.5-8.0) g/dL Albumin 3.3 L (3.5-5.0) g/dL Urine Color Dark Yellow Urine Appearance Clear Urine pH 7.0 (5.0-8.0) Ur Specific [place] 1.020 (1.005-1.025) Urine Protein Negative (Neg-Trace) mg/dL Urine Glucose (UA) Negative (Negative) mg/dL Urine Ketones Negative (Negative) mg/dL Urine Blood Negative (Negative) Urine Nitrite Negative (Negative) Ur Leukocyte Esterase Negative (Negative) Critical Care Time Critical Care Time Critical Care Time: No Discharge Plan Discharge Clinical Impression: Peritoneal carcinomatosis, Abdominal ascites Patient Disposition: Home, Self-Care Instructions: Ascites (ED) Additional Instructions: Your CT scan shows evidence concerning for peritoneal carcinomatosis. This is the spread of cancer cells inside the abdominal cavity. The origin of this cancer is usually intra-abdominal tumor of some kind. You need to follow-up with the oncologist below. Call their office tomorrow morning to arrange an appointment for evaluation. Take the prescribed medications as needed for severe pain Recommend taking MiraLax, senna, or Colace to help prevent constipation Stay hydrated, drink plenty of water. If you develop new or worsening symptoms call 911 or come back to the ER for further evaluation. Prescriptions: New oxycodone 5 mg tablet 5 mg PO Q8H PRN (Reason: severe pain (scale score 7-10)) Qty: 7 0RF Rx Instructions: Partial Fill upon patient request. lorazepam [Ativan] 1 mg tablet 1 mg PO DAILY PRN (Reason: anxiety) Qty: 5 0RF No Action ibuprofen 600 mg tablet 600 mg PO Q8H Qty: 90 2RF Hold Instructions: Doctor's Order ascorbic acid (vitamin C) 1,000 mg tablet 1 g PO DAILY 90 Days Qty: 90 3RF Trulicity 0.75 mg/0.5 mL pen injector 0.75 mg subcut QWEEK 28 Days Qty: 2 1RF simvastatin 40 mg tablet 40 mg PO BEDTIME 90 Days Qty: 90 1RF omeprazole 20 mg capsule,delayed release(DR/EC) 20 mg PO DAILY Qty: 90 2RF nitrofurantoin macrocrystal 100 mg capsule 100 mg PO BID 7 Days Qty: 14 0RF Rx Instructions: must administer with a meal/food estradiol 0.01 % (0.1 mg/gram) cream See Rx Instructions .Route DAILY Qty: 42.5 3RF Rx Instructions: pea-sized to urethra daily; lisinopril 2.5 mg tablet 2.5 mg PO DAILY Qty: 90 2RF lorazepam 0.5 mg tablet 0.5 mg PO BEDTIME PRN (Reason: anxiety) Qty: 30 2RF methenamine hippurate 1 gram tablet 1 g PO DAILY 90 Days Qty: 90 3RF levothyroxine 50 mcg tablet 50 mcg PO QAM 90 Days Qty: 90 2RF tamsulosin 0.4 mg capsule 0.4 mg PO DAILY 14 Days Qty: 14 0RF ciprofloxacin HCl 250 mg tablet 250 mg PO DAILY 30 Days Qty: 30 0RF acetaminophen-codeine 300-30 mg tablet 1 tab PO Q12H 14 Days Qty: 28 1RF atenolol 25 mg tablet 12.5 mg PO DAILY Qty: 15 3RF diclofenac sodium 75 mg tablet,delayed release (DR/EC) 75 mg PO BID 15 Days Qty: 30 0RF estradiol 0.5 mg tablet 0.5 mg PO DAILY Qty: 90 0RF gabapentin 300 mg capsule 300 mg PO TID 30 Days Qty: 90 0RF hydrocortisone 2.5 % cream 1 appl topical TID PRN (Reason: itching) Qty: 28 0RF diclofenac sodium 1 % gel 2 g topical QID Qty: 100 0RF flu vacc [id number] 6mos up(PF) 60 mcg (15 mcg x 4)/0.5 mL syringe 0.5 ml IM ONCE Qty: 0.5 0RF metformin 500 mg tablet extended release 24 hr 1,000 mg PO BID 30 Days Qty: 120 4RF Saccharomyces boulardii [Daily Probiotic (S. boulardii)] 250 mg capsule 250 mg PO BID lidocaine [Aspercreme (lidocaine)] 4 % adhesive patch,medicated 1 patch topical DAILY PRN (Reason: pain) Qty: 10 0RF fluticasone propionate [Flonase Allergy Relief] 50 mcg/actuation spray,suspension 2 spray intranasal DAILY 30 Days Qty: 16 0RF Rx Instructions: administer into each nostril latanoprost 0.005 % drops 1 drp ophthalmic (eye) BEDTIME Referrals: Frandy Alston MD [Physician] - (Peritoneal carcinomatosis)
[2022-06-03] MEDS: 0.9 % Sodium Chloride 1,000 ML 999 ML IVCONT (19:00)
[2022-06-03 19:34] VITALS: BP 140/68; PULSE 66; RESP 18; TEMP 37; O2SAT 95
[2022-06-03 19:56] LABS: Alanine Aminotransferase 6 U/L (0-31); Albumin Level 3.3 g/dL (3.5-5.0); Alkaline Phosphatase 90 U/L (39-117); Anion Gap 17 (12-20); Aspartate Amino Transferase 12 U/L (5-31); Bilirubin Direct 0.2 mg/dL (0.0-0.5); Bilirubin Total 0.3 mg/dL (0.0-1.0); Blood Urea Nitrogen 10 mg/dL (9-16); Calcium 8.9 mg/dL (8.4-10.2); Carbon Dioxide 28 mmol/L (22-29); Chloride 103 mmol/L (96-108); Creatinine Clr Calc Pharmacy 56.4; Estimated Glomerular Filt Rate > 60; Glucose Random 103 mg/dL (60-115); Magnesium 2.4 mg/dL (1.6-2.6); Potassium 4.9 mmol/L (3.3-5.1); Sodium 143 mmol/L (135-145); Total Protein 5.9 g/dL (6.5-8.0)
[2022-06-03] MEDS: iohexoL 350 MG/ML 100 ML INFUS..BTL IV (21:05)
[2022-06-03 22:36] VITALS: BP 160/74; PULSE 110; RESP 18; O2SAT 95
[2022-06-03] MEDS: Docusate Sodium 100 MG CAPSULE PO (22:37)
[2022-06-03] MEDS: LORazepam 1 MG TABLET PO (22:37)
[2022-06-03] MEDS: oxyCODONE HCl Immed Release 5 MG TABLET PO (22:38)
--- NOTE | 2022-06-03 22:41 | PC.NURSE ---
Provider made aware of patients HR
[2022-06-03 23:57] VITALS: BP 156/84; PULSE 104; RESP 20; O2SAT 96
== END 2022-06-03 23:58 | disposition home or self-care (01) ==
PROVIDERS: Physician Assistant; Emergency Provider Emergency Medicine; PCP Physician Assistant
DX: R18.8 Other ascites (principal); R10.32 Left lower quadrant pain; C78.6 Secondary malignant neoplasm of retroperitoneum and peritoneum; Z87.891 Personal history of nicotine dependence; Z79.899 Other long term (current) drug therapy
CPT/HCPCS: 36415; 74177; 80048; 80076; 81003; 83735; 85025; 99284; Q9967

== ENCOUNTER → 2022-06-05 13:33 | Outpatient (BNVA) | payer MEDICARE, SELFPAY | PROVIDERS: PCP Physician Assistant; Referring Provider Physician Assistant; Visit Provider Nurse Practitioner Family | DX: M17.12 Unilateral primary osteoarthritis, left knee (principal); R06.02 Shortness of breath; R60.0 Localized edema; R07.9 Chest pain, unspecified; R18.8 Other ascites; E11.65 Type 2 diabetes mellitus with hyperglycemia | CPT/HCPCS: 93005; 97803; 99212 ==

== ENCOUNTER 2022-06-07 11:15 | Day surgery (SDC) | payer MEDICARE, SELFPAY ==
--- NOTE | ~2022-06-07 | US_ITS ---
PROCEDURE: ULTRASOUND-GUIDED PARACENTESIS CLINICAL INFORMATION: Ascites. COMPARISON: None TECHNIQUE: Following explaining ultrasound-guided paracentesis procedure, benefits and risk, a written consent was obtained. Patient was placed supine on ultrasound stretcher and preliminary ultrasound imaging was obtained. An optimal site was selected along the right upper quadrant and marked on the skin. Marked site was cleaned and draped in usual sterile manner. 1% lidocaine was injected at puncture site. A 5 [employer] catheter was advanced through the skin into the right upper quadrant peritoneal space. After observing fluid return, stylet was withdrawn and catheter connected to vacuum bottle via connecting cannula. After obtaining all fluid and observing no fluid remaining, the catheter was withdrawn and complete hemostasis achieved at puncture site. Sterile Band-Aid applied postprocedure. Patient tolerated procedure extremely well. FINDINGS: On preliminary ultrasound imaging there is moderate fluid seen in the upper abdomen. Approximately 4.8 L of fluid was drained from right upper quadrant. Part of this fluid was sent to lab for further analysis/cytology. US/US paracentesis abd w/image IMPRESSION: Successful ultrasound-guided therapeutic and diagnostic paracentesis performed.
--- NOTE | ~2022-06-07 | CT_ITS ---
EXAMINATION: CT CHEST WITH CONTRAST CLINICAL INFORMATION: Cancer staging. COMPARISON: CT abdomen and pelvis with contrast 06/03/2022. CT cervical spine 10/03/2019, chest radiograph 04/01/2021 TECHNIQUE: Multidetector volumetric CT imaging of the chest was obtained after the administration of 65 mL of Omnipaque 350 intravenous contrast without immediate adverse reactions. Axial MIP volume rendering provided. Sagittal and coronal reformatted images were obtained. This CT examination was performed using dose optimization techniques as appropriate, variously including the following: *Automated exposure control *Adjustment of mA and/or kV according to patient size (this includes techniques or standardized protocols for targeted exams where dose is matched to indication/reason for exam; i.e. extremities or head) *Use of iterative reconstruction technique DLP: 132 mGy-cm FINDINGS: FORKLIFT PICKER: Clumped linear artifact overlying lower anterior lateral right thoracoabdominal junction, outside of the patient on the axial images. LUNGS/PLEURA: The central airways are clear and there is no endobronchial lesion or bronchiectasis. No pulmonary mass or nodule, airspace consolidation, or groundglass opacity. There is linear scarring versus subsegmental disc atelectasis posterior lateral right lower lobe. The left hemithorax as benign coarse pleural-based calcification left apex and calcified benign-appearing plaque posterior lateral upper chest. There is otherwise no pleural mass and no effusion. MEDIASTINUM: No hilar or mediastinal mass or adenopathy. Thoracic aorta normal in caliber. No pericardial effusion. AXILLA: No lymphadenopathy. UPPER ABDOMEN: Ascites, fine nodular contour liver suggesting cirrhosis, similar to recent imaging. OSSEOUS STRUCTURES: No suspicious bony abnormality. Multilevel degenerative changes thoracic spine. CT/CT chest w con IMPRESSION: -No metastatic disease.
[2022-06-07 12:06] VITALS: BMI 28.1
[2022-06-07 12:44] LABS: Glucose, Whole Blood 116 mg/dL (60-115)
[2022-06-07] MEDS: Lidocaine HCl 1 % MPF 5 ML VIAL 4 ML SUBCUT (14:03)
[2022-06-07 14:25] VITALS: BP 128/44; PULSE 78; RESP 17; TEMP 36.8; O2SAT 95
[2022-06-07 14:40] VITALS: BP 118/50; PULSE 74; RESP 18; O2SAT 97
[2022-06-07 14:58] VITALS: BP 122/59; PULSE 81; RESP 17; O2SAT 96
[2022-06-07 15:13] VITALS: BP 122/56; PULSE 86; RESP 17; O2SAT 96
[2022-06-07 15:34] VITALS: BP 111/45; PULSE 97; RESP 17; O2SAT 95
[2022-06-07 15:54] VITALS: BP 110/48; PULSE 90; RESP 17; TEMP 36.9; O2SAT 95
== END 2022-06-07 15:57 | disposition home or self-care (01) ==
PROVIDERS: Radiology Diagnostic Radiology; PCP Physician Assistant; Visit Provider Internal Medicine
DX: R18.8 Other ascites (principal); C78.6 Secondary malignant neoplasm of retroperitoneum and peritoneum; R14.0 Abdominal distension (gaseous); K59.00 Constipation, unspecified; R30.0 Dysuria; I10 Essential (primary) hypertension; I49.9 Cardiac arrhythmia, unspecified; E11.9 Type 2 diabetes mellitus without complications; J32.9 Chronic sinusitis, unspecified; Z79.84 Long term (current) use of oral hypoglycemic drugs; Z79.51 Long term (current) use of inhaled steroids; Z79.899 Other long term (current) drug therapy; Z88.2 Allergy status to sulfonamides; Z87.440 Personal history of urinary (tract) infections; Z80.52 Family history of malignant neoplasm of bladder; Z87.891 Personal history of nicotine dependence; Z90.710 Acquired absence of both cervix and uterus; Z88.1 Allergy status to other antibiotic agents
CPT/HCPCS: 36415; 49083; 71260; 82947; 88112; 88184; 88185; 88300; 88305; 88341; 88342

== ENCOUNTER → 2022-06-14 08:55 | Outpatient (BNVA) | payer MEDICARE, SELFPAY | PROVIDERS: PCP Physician Assistant; Visit Provider Urology | DX: N32.81 Overactive bladder (principal); N39.0 Urinary tract infection, site not specified; R10.2 Pelvic and perineal pain | CPT/HCPCS: 51798; 99212 ==

== ENCOUNTER → 2022-06-21 09:43 | Outpatient (REF) | payer MEDICARE, SELFPAY ==
--- NOTE | ~2022-06-21 | IR_ITS ---
PROCEDURE: IR INSERTION OF TUNNEL CATHETER CLINICAL INFORMATION: IV access for chemotherapy. COMPARISON: None. TECHNIQUE: Procedure and risks and benefits including bleeding, infection and pneumothorax were discussed with the patient and informed consent was obtained. All elements of maximal sterile barrier technique followed including use of cap, mask, sterile gown, sterile gloves, a sterile full body drape and hand hygiene. Also followed skin preparation with 2% chlorhexidine for cutaneous antisepsis, and sterile ultrasound preparation with sterile gel and probe cover when applicable. The right neck and chest were prepped and draped in the usual sterile fashion. The skin and soft tissues were anesthetized with 1% lidocaine plain. Using ultrasound guidance and a 5 Nigerien micropuncture system, right internal jugular vein access was obtained. Over an 018 wire, a 5 Nigerien dilator was positioned in the SVC. The skin and soft tissues of the right upper anterior chest were anesthetized with 1% lidocaine plain. A small incision was made. Using blunt dissection, subcutaneous pocket was created. A subcutaneous tunnel from the chest to the neck incision was anesthetized with 1% lidocaine plain. Using a tunneler, a 6 Nigerien single-lumen catheter was tunneled from the chest to the neck incision. The catheter was attached to the port. The port was positioned in the subcutaneous pocket using two 2-0 nonabsorbable sutures. An 025 guidewire was advanced through the 5 Nigerien dilator into the IVC. Dilator was exchanged for a 6 Nigerien peel-away sheath. Using bent wire technique, catheter length was estimated and the catheter was cut. The catheter was fed through the peel-away sheath. Catheter length is 23 cm. The neck incision was closed using a 4-0 absorbable subcuticular suture. Chest incision was closed using three 3-0 absorbable interrupted sutures followed by a running subcuticular absorbable 4-0 suture. The port was accessed. The port had good blood return, flushed easily and was instilled with 5 mL heparin 100 unit per mL solution. Patient received Versed 0.5 mg and fentanyl 25 mcg intravenously during the procedure. Total sedation time was 30 minutes. Real-time ultrasound guidance was used to document vein patency and for needle entry. A formal ultrasound picture was recorded. Patient dose 0.04 mGy-m2. Fluoroscopy time 0.4 minutes. FINDINGS: There is a right internal jugular 6.6 Nigerien single-lumen dignity port-a-cath with tip projecting over the SVC.
--- NOTE | 2022-06-21 09:50 | CA_ITS ---
Transthoracic Echocardiogram Patient (Last, First, Middle): Izabela Pitt A Gender: Female Date of : 1950 Age: 71 Procedure Date: 06/21/2022 Procedure Type: Transthoracic Echocardiogram Location: OP Height: 160.02 cm Weight: 115.21 kg BSA: 2.14 m2 Heart Rate: 69 bpm BP: 140 / 75 mmHg Inspector Line: KENDRA Marinelli MD: Lizett Alejandre SIFTING OPERATOR-C Truck Jumper: Nick Lacey MD Symptoms: R06.02 - Shortness of breath Study Quality: Technically Difficult ECG Rhythm: Sinus Conclusions: - 1. Normal LV systolic function with mild LVH with impaired relaxation filling pattern 2. Mild aortic regurgitation and mitral regurgitation noted 3. Normal RV systolic pressure 4. No gross pericardial effusion Findings Left Ventricle Normal left ventricular cavity size. There is mildly increased left ventricular wall thickness. The left ventricular systolic function is low normal. The visually estimated ejection fraction is between 50-55%. Spectral Doppler is indicative of an impaired relaxation filling pattern. E/E prime ratio is between 8 and 15 consistent with indeterminate filling pressures. Right Ventricle Normal right ventricular cavity size and systolic function. Atria The left atrium is likely dilated. Interatrial shunt cannot be excluded. The right atrium is normal in size. Aortic Valve There is mild calcification of the aortic valve. There is no aortic valve stenosis. There is mild aortic valve regurgitation. Mitral Valve There is mild anterior and posterior mitral leaflet thickening. There is mild mitral annular calcification. There is mild mitral valve regurgitation. There is no mitral valve stenosis. Pulmonic Valve The pulmonic valve was not well visualized. Tricuspid Valve There is trace tricuspid valve regurgitation. The right ventricular systolic pressure is normal. Normal right atrial pressure. There is no evidence of pulmonary hypertension. Great Vessels All visible segments of the aorta are normal in size. The pulmonary artery was not well visualized. Venous The inferior vena cava is normal in size and collapses greater than 50% with inspiration. Pericardium/Pleural There is no evidence of pericardial effusion. Prior Study Comparison no previous study in the last 5 years for comparison Measurements 2D Linear Measurements IVSd: 1.37 0.6-0.9/0.6-1.0 cm LVIDd: 3.60 3.9-5.3/4.2-5.9 cm LVIDd Index: 1.68 2.4-3.2/2.2-3.1 cm/m2 LVIDs: 3.08 2.0-3.6 cm LVPWd: 1.25 0.7-1.1 cm LA Diam: 3.50 2.7-3.8/3.0-4.0 cm LAIDs Index: 1.64 1.5-2.3 cm/m2 LV Mass: 201.75 67-162/88-224 g LV Mass Index: 94.27 43-95/49-115 g/m2 LVOT Diam: 1.70 3.0+(-)1.3 cm 2D Systolic Function EF 4C: 43.80 >55% EF 2C: 50.00 >55% Mitral Valve MV Pk E: 0.65 MV PK A: 1.42 MV Decel Time: 607.00 E/A: 0.50 E'Lateral: 4.57 E'Medial: 6.20 E/E' Med: 10.50 E/E' Lat: 14.20 PHT: 178.00 MVA PHT: 1.24 Decel Whitley: 1.07 Aortic Valve AoV Pk Reid: 1.41 AoV Mn Reid: 0.99 AoV VTI: 0.25 AoV Pk Grad: 8.00 Aov Mn Grad: 5.00 RAYMOND Cont.VTI: 2.48 AI Pk Reid: 3.94 AI Whitley: 2.19 LVOT LVOT Pk Reid: 1.23 LVOT Mn Reid: 0.92 LVOT VTI: 0.27 LVOT Pk Grad: 6.00 LVOT Mn Grad: 4.00 LVOT Diam: 1.70 LVOT Area: 2.27 Diastolic Function MV Pk E: 0.65 MV Pk A: 1.42 E/A: 0.50 E'Medial: 6.20 E/E' Med: 10.50 E' Laterial: 4.57 E/E' Lat: 14.20 Right Ventricle TAPSE (mm): 21.20 TVS' Reid: 10.00 Tricuspid Valve TR Pk Reid: 2.04 TR Pk Grad: 17.00 RA Press: 3.00 RVSP: 20.00 Great Vessels Aorta Sinus of Valsalva: 3.00 2.0-3.5 cm Ao Asc: 3.10 2.1-3.4 cm Pulmonary Valve PV Pk Reid: 1.06 Peak PV Grad: 4.00 Updated in Other Vendor System with Status of Final Nick Lacey MD electronically signed on 06/21/2022 4:49:54 PM with status of Final
[2022-06-22 07:43] LABS: Glucose, Whole Blood 113 mg/dL (60-115)
[2022-06-22 10:20] VITALS: BP 99/72; PULSE 67; RESP 18; TEMP 36.4; O2SAT 98
[2022-06-22 10:35] VITALS: BP 90/59; PULSE 66; RESP 17; O2SAT 98
[2022-06-22 10:50] VITALS: BP 110/65; PULSE 67; RESP 20; O2SAT 95
[2022-06-22 11:05] VITALS: BP 106/56; PULSE 66; RESP 20; O2SAT 95
[2022-06-22 11:20] VITALS: BP 117/46; PULSE 67; RESP 19; O2SAT 95
[2022-06-22] MEDS: Lidocaine HCl 1 % MPF 2 ML VIAL 4 ML INFILTRATI (11:31)
[2022-06-22 11:38] VITALS: BP 106/65; PULSE 70; RESP 19; TEMP 36.4; O2SAT 96
== END ==
LOC: HO.CARD 09:43
PROVIDERS: PCP Physician Assistant; Visit Provider Radiology Diagnostic Radiology
DX: R06.02 Shortness of breath (principal); R60.0 Localized edema
CPT/HCPCS: 36561; 76937; 82947; 93306; 99152; 99153; J1642; J2250; J3010

== ENCOUNTER → 2022-06-22 07:06 | Day surgery (SDC) | payer MEDICARE, SELFPAY ==
--- NOTE | ~2022-06-22 | IR_ITS ---
PROCEDURE: IR INSERTION OF TUNNEL CATHETER CLINICAL INFORMATION: IV access for chemotherapy. COMPARISON: None. TECHNIQUE: Procedure and risks and benefits including bleeding, infection and pneumothorax were discussed with the patient and informed consent was obtained. All elements of maximal sterile barrier technique followed including use of cap, mask, sterile gown, sterile gloves, a sterile full body drape and hand hygiene. Also followed skin preparation with 2% chlorhexidine for cutaneous antisepsis, and sterile ultrasound preparation with sterile gel and probe cover when applicable. The right neck and chest were prepped and draped in the usual sterile fashion. The skin and soft tissues were anesthetized with 1% lidocaine plain. Using ultrasound guidance and a 5 Australian micropuncture system, right internal jugular vein access was obtained. Over an 018 wire, a 5 Australian dilator was positioned in the SVC. The skin and soft tissues of the right upper anterior chest were anesthetized with 1% lidocaine plain. A small incision was made. Using blunt dissection, subcutaneous pocket was created. A subcutaneous tunnel from the chest to the neck incision was anesthetized with 1% lidocaine plain. Using a tunneler, a 6 Australian single-lumen catheter was tunneled from the chest to the neck incision. The catheter was attached to the port. The port was positioned in the subcutaneous pocket using two 2-0 nonabsorbable sutures. An 025 guidewire was advanced through the 5 Australian dilator into the IVC. Dilator was exchanged for a 6 Australian peel-away sheath. Using bent wire technique, catheter length was estimated and the catheter was cut. The catheter was fed through the peel-away sheath. Catheter length is 23 cm. The neck incision was closed using a 4-0 absorbable subcuticular suture. Chest incision was closed using three 3-0 absorbable interrupted sutures followed by a running subcuticular absorbable 4-0 suture. The port was accessed. The port had good blood return, flushed easily and was instilled with 5 mL heparin 100 unit per mL solution. Patient received Versed 0.5 mg and fentanyl 25 mcg intravenously during the procedure. Total sedation time was 30 minutes. Real-time ultrasound guidance was used to document vein patency and for needle entry. A formal ultrasound picture was recorded. Patient dose 0.04 mGy-m2. Fluoroscopy time 0.4 minutes. FINDINGS: There is a right internal jugular 6.6 Australian single-lumen dignity port-a-cath with tip projecting over the SVC. IR/IR cvc insert tunnel w prt/admissions director Impression: Right internal jugular 6.6 Australian single-lumen dignity Port-A-Cath placement.
--- NOTE | 2022-06-22 10:04 | HO.RADPN ---
RADIOLOGY Narrative Narrative: RIJ 6.6 fr single lumen Dignity portacath placed. Tip in SVC.
== END ==
PROVIDERS: PCP Physician Assistant; Visit Provider Internal Medicine
DX: Z45.2 Encounter for adjustment and management of vascular access device (principal); C78.6 Secondary malignant neoplasm of retroperitoneum and peritoneum; C25.9 Malignant neoplasm of pancreas, unspecified; Z80.52 Family history of malignant neoplasm of bladder; E11.9 Type 2 diabetes mellitus without complications; I10 Essential (primary) hypertension; Z87.891 Personal history of nicotine dependence; Z88.1 Allergy status to other antibiotic agents; Z88.2 Allergy status to sulfonamides
CPT/HCPCS: 36561; 76937; 82947; 99152; 99153; J1642; J2250; J3010

== ENCOUNTER 2022-06-25 07:27 | Day surgery (SDC) | payer MEDICARE, SELFPAY ==
--- NOTE | ~2022-06-25 | US_ITS ---
EXAMINATION: US ULTRASOUND-GUIDED PARACENTESIS CLINICAL INFORMATION: Ascites. Peritoneal carcinomatosis. COMPARISON: Previous ultrasound-guided paracentesis 06/07/2022. TECHNIQUE: Procedure and risks and benefits including bleeding infection and low blood pressure were discussed with the patient and informed consent was obtained. The right lower quadrant prepped and draped in the usual sterile fashion. The skin and soft tissues were anesthetized with 1% lidocaine plain. Using ultrasound guidance and a 5 Yi Rapid centesis catheter, 6.4 liters of fluid was removed. No diagnostic specimen was sent. FINDINGS: There is a large amount of ascites. US/US paracentesis abd w/image IMPRESSION: Ultrasound-guided paracentesis.
[2022-06-25 08:05] VITALS: BMI 27.3
[2022-06-25 08:27] LABS: Glucose, Whole Blood 105 mg/dL (60-115)
[2022-06-25] MEDS: Lidocaine HCl 1 % MPF 5 ML VIAL 4 ML SUBCUT (10:01)
[2022-06-25 10:07] VITALS: BP 114/64; PULSE 70; RESP 17; TEMP 36.4; O2SAT 96
[2022-06-25 10:22] VITALS: BP 106/66; PULSE 69; RESP 17; O2SAT 96
--- NOTE | 2022-06-25 10:27 | HO.RADPN ---
RADIOLOGY Narrative Narrative: RLQ paracentesis performed using 5 fr catheter. 6.4 L fluid removed . No specimen sent.
[2022-06-25 10:38] VITALS: BP 112/55; PULSE 77; RESP 15; O2SAT 97
[2022-06-25 11:08] VITALS: BP 102/57; PULSE 82; RESP 17; TEMP 36.7; O2SAT 96
[2022-06-25 11:46] LABS: Glucose, Whole Blood 113 mg/dL (60-115)
== END 2022-06-25 12:55 | disposition home or self-care (01) ==
PROVIDERS: Radiology Diagnostic Radiology; PCP Physician Assistant; Visit Provider Internal Medicine
DX: R18.8 Other ascites (principal); C78.6 Secondary malignant neoplasm of retroperitoneum and peritoneum; E11.9 Type 2 diabetes mellitus without complications; I10 Essential (primary) hypertension
CPT/HCPCS: 49083; 82947

== ENCOUNTER 2022-07-03 12:17 | Outpatient (REF) | payer MEDICARE, SELFPAY ==
--- NOTE | ~2022-07-03 | PE_ITS ---
EXAMINATION: Fluorine-18 FDG PET/CT Scan CLINICAL INDICATION: Initial treatment management. Pancreatic cancer. PROCEDURE: 74 minutes following the intravenous administration of 15.1 mCi of fluorine 18 FDG, images from the base of the skull to the mid thighs were obtained using a combined PET/CT scanner with CT scan based attenuation correction. No oral contrast was administered. No intravenous contrast was administered. Transverse, coronal, sagittal, and volume reconstruction projections were obtained. The patient's blood glucose as determined by a finger stick, was 107 mg/dl immediately prior to injection. Total CT exam dose-length product 388.80 mGy-cm * These CT images were obtained using dose optimization techniques as appropriate, variously including the following: Automated exposure control * Adjustment of mA and/or kV according to patient size (this includes techniques or standardized protocols for targeted exams where dose is matched to indication/reason for exam; i.e. extremities or head) * Use of iterative reconstruction technique COMPARISON: No previous PET/CT scan is available for comparison. CT scan of the chest dated 06/07/[address] scan of the abdomen and pelvis dated 06/03/2022 are available for comparison. FINDINGS: (Slice numbers described in this report are numbered superiorly to inferiorly with slice #1 in the head) NECK AND VISUALIZED HEAD: No foci of abnormal FDG activity are noted. The distribution of FDG activity is physiological. There is no cervical lymphadenopathy. THORAX: There is a dense curvilinear calcification in in the left lung apex, unchanged in appearance from the 06/07/2022 CT scan of the chest and with no associated abnormal FDG activity. There is a weakly FDG avid groundglass opacity posterolaterally at the left lung base which is new since 06/07/2022. No other foci of abnormal FDG activity are present in the chest. A dense posterior pleural-based calcification is present in the superior segment of the left lower lobe with no associated abnormal FDG activity and unchanged in appearance from 06/07/2022. There is no mediastinal, supraclavicular, or axillary lymphadenopathy. A right-sided chest port with internal jugular catheter terminating in the superior vena cava is noted. ABDOMEN AND PELVIS: There is diffusely increased FDG activity throughout the gastrointestinal tract, possibly due to metformin use but without a suspicious focal component. There is diverticulosis without evidence of diverticulitis. The hollow viscera are otherwise unremarkable. There is a focus of mildly increased FDG activity at the junction of the head and body of the pancreas with no definite CT abnormality other than some adjacent anterior stranding in the mesentery. This shows SUVmax 5.0, slice 135/223. No additional abnormalities in the pancreas are suggested. No additional suspicious foci of FDG activity are present in the abdomen. The liver and spleen appear unremarkable. A small deep deep tendon calcified calculus is present in the gallbladder but the gallbladder is otherwise unremarkable. Bilateral hypodense renal cysts are present and these are markedly FDG photopenic and likely simple cysts. The kidneys are otherwise unremarkable. The adrenal glands are unremarkable. A moderate amount of ascites is present and this does not show abnormal FDG accumulation. In the pelvis there is a discrete focus of increased FDG activity in the region of the cervix, SUVmax 9.3, slice 206/223. No corresponding CT abnormality is present at this site. The pelvic organs are otherwise unremarkable. MUSCULOSKELETAL: No foci of abnormal FDG activity are present in the osseous structures. There are diffuse degenerative changes in the spine most severely in the mid and lower thoracic spine. There is a grade 1 anterolisthesis of L5 on S1 VASCULAR: Diffuse vascular calcifications including coronary calcifications are noted. PET/PET CT fusion skull to thigh IMPRESSION: 1. There is a focus of the increased FDG activity at the junction of the head and body of the pancreas. This may represent the patient's primary pancreatic malignancy. Some stranding into the adjacent mesentery anteriorly is noted which may represent some extension outside the pancreas. There is no corresponding CT abnormality. This may be better characterized with MRI of the abdomen performed without and with intravenous contrast. 2. An FDG avid focus in the region of the cervix is noted and is suspicious for malignancy. Gynecological examination to better characterize this is recommended. 3. A small region of new groundglass opacity which is mildly FDG avid is present in the left lung base and this is likely inflammatory in etiology. This was not present on the 03/02/[address] scan. 4. A moderate amount of ascites is present with no associated abnormal FDG activity. 5. Cholelithiasis. 6. Vascular calcifications including coronary.
== END 2022-07-03 12:18 | disposition home or self-care (01) ==
LOC: HO.PET 12:17
PROVIDERS: Visit Provider Internal Medicine
DX: Z13.89 Encounter for screening for other disorder (principal)

== ENCOUNTER → 2022-07-06 11:30 | Outpatient (BNVA) | payer MEDICARE, SELFPAY | PROVIDERS: PCP Physician Assistant; Visit Provider Urology | DX: N39.0 Urinary tract infection, site not specified (principal) | CPT/HCPCS: 51701 ==

== ENCOUNTER 2022-07-23 08:51 | Outpatient (REF) | payer MEDICARE, SELFPAY ==
--- NOTE | ~2022-07-23 | US_ITS ---
EXAMINATION: US ABDOMEN LIMITED CLINICAL INFORMATION: Question recurrent ascites. COMPARISON: None TECHNIQUE: Real-time limited imaging of abdomen was performed.. FINDINGS: There is moderate ascites visualized in all 4 quadrants. US/US abdomen limited IMPRESSION: Moderate ascites.
== END 2022-07-23 08:52 | disposition home or self-care (01) ==
LOC: HO.US 08:51
PROVIDERS: PCP Physician Assistant; Visit Provider Internal Medicine
DX: R18.8 Other ascites (principal); R14.0 Abdominal distension (gaseous)
CPT/HCPCS: 76705

== ENCOUNTER 2022-07-27 15:23 | Inpatient (IN) | payer MEDICARE, SELFPAY ==
--- NOTE | ~2022-07-27 | XR_ITS ---
EXAMINATION: XR CHEST CLINICAL INFORMATION: Question pleural effusion COMPARISON: 06/07/2022 TECHNIQUE: Frontal view of the chest was obtained. FINDINGS: Right IJ port catheter tip lies in the region of the distal SVC. Lung volumes are symmetric. No focal consolidation is seen. No evidence of pneumothorax, significant pleural effusion, or pulmonary edema. Cardiac size is within normal limits. Calcification is present at the aortic arch. Degenerative changes are noted in the spine. XR/XR chest 1V IMPRESSION: No significant pleural effusion.
--- NOTE | ~2022-07-27 | US_ITS ---
EXAMINATION: US ULTRASOUND-GUIDED PARACENTESIS CLINICAL INFORMATION: Ascites. COMPARISON: CT abdomen and pelvis 07/28/2022. TECHNIQUE: Following explaining ultrasound-guided paracentesis procedure, benefits and risk, a written consent was obtained. Patient was placed upright sitting on a stretcher and pulmonary ultrasound imaging obtained through the abdomen. An optimal site was selected, marked and draped in the usual sterile manner. 1% lidocaine was injected at the marked site. Through a small skin incision, a 5 Hong Konger [employer] catheter was advanced into the peritoneal space. After observing fluid return, the catheter was connected to a vacuum bottle via connecting cannula. After obtaining all fluid and observing no more fluid return, catheter was withdrawn and complete hemostasis was achieved at the puncture site. Sterile dressing was applied postprocedure. Patient tolerate the procedure extremely well. FINDINGS: On preliminary ultrasound imaging, there is a cqwnyulb-ld-ywigh amount of free fluid in the abdomen. Approximately 7.6 L of clear yellowish fluid was drained from the left lower quadrant for diagnostic and therapeutic purposes. Postprocedure, there was very little to no fluid remaining. US/US paracentesis abd w/image IMPRESSION: Successful ultrasound-guided diagnostic and therapeutic paracentesis performed.
--- NOTE | ~2022-07-27 | CT_ITS ---
EXAMINATION: CT ABDOMEN AND PELVIS WITHOUT CONTRAST CLINICAL INFORMATION: Pancreatic cancer COMPARISON: 07/03/2022 PET/CT TECHNIQUE: Multidetector volumetric imaging was performed from the superior aspect of the liver through the pubic symphysis. Sagittal and coronal reformatted images were obtained on the technologist's workstation. This CT examination was performed using dose optimization techniques as appropriate, variously including the following: *Automated exposure control *Adjustment of mA and/or kV according to patient size (this includes techniques or standardized protocols for targeted exams where dose is matched to indication/reason for exam; i.e. extremities or head) *Use of iterative reconstruction technique DLP: 567 mGy-cm FINDINGS: LUNG BASES: Mild bibasilar opacities favor atelectasis. LIVER, GALLBLADDER, AND BILIARY TREE: Mildly nodular hepatic contour. No focal hepatic lesion or biliary ductal dilatation is identified on this noncontrast exam. Minimal cholelithiasis noted. PANCREAS: Pancreas appears moderately atrophic and is suboptimally assessed without intravenous contrast. SPLEEN: Unremarkable. ADRENAL GLANDS: Unremarkable. KIDNEYS AND URETERS: No hydronephrosis or obstructing calculus. Bilateral renal cysts are noted; no follow-up recommended. Nonspecific bilateral perinephric stranding. BLADDER: Unremarkable. GASTROINTESTINAL TRACT: No evidence of bowel obstruction. There is diverticulosis in the sigmoid colon without convincing diverticulitis. Moderate to large volume of ascites is present, mildly increased since 07/03/2022. No free air is seen. ABDOMINAL WALL: Small focus of subcutaneous gas in the right anterior abdominal wall may be sequelae of recent injection. Anasarca noted. LYMPH NODES: No lymphadenopathy is seen, though assessment is limited in the absence of intravenous contrast. There is redemonstration of some heterogeneous soft tissue in the mesentery, suspicious for carcinomatosis. VASCULAR: Extensive atherosclerotic calcification of the aorta. PELVIC VISCERA: Status post hysterectomy. OSSEOUS STRUCTURES: Degenerative changes are noted in the spine. CT/CT abdomen pelvis wo IV con IMPRESSION: 1. Moderate to large volume ascites, mildly increased since 07/03/2022. 2. Redemonstrated heterogeneous soft tissue in the mesentery, suspicious for carcinomatosis in the setting of pancreatic cancer.
[2022-07-27 16:25] VITALS: BP 109/67; PULSE 83; RESP 18; TEMP 36.8; O2SAT 98; BMI 26.0
[2022-07-27 17:01] LABS: Hematocrit 28.7 % (37.0-47.0); Hemoglobin 9.4 g/dl (12.0-16.0); Mean Corpuscular HGB Conc 32.8 g/dl (31.0-35.0); Mean Corpuscular Hemoglobin 24.6 pg (27.0-33.0); Mean Corpuscular Volume 75.1 fL (80.0-98.0); Mean Platelet Volume 10.6 fL (9.4-12.3); NRBC Pct Auto 0.7 /100WBC (0.0-0.2); Platelet Count 154 X10*3/uL (160-400); Red Blood Count 3.82 X10*6/uL (4.20-5.50); Red Cell Distribution Width 16.6 % (11.0-16.0); White Blood Count 17.5 X10*3/uL (4.8-10.8)
[2022-07-27 17:11] LABS: Alanine Aminotransferase 15 U/L (0-31); Albumin Level 2.9 g/dL (3.5-5.0); Alkaline Phosphatase 219 U/L (39-117); Anion Gap 18 (12-20); Aspartate Amino Transferase 27 U/L (5-31); Bilirubin Total 0.4 mg/dL (0.0-1.0); Blood Urea Nitrogen 33 mg/dL (9-16); Calcium 8.3 mg/dL (8.4-10.2); Carbon Dioxide 28 mmol/L (22-29); Chloride 90 mmol/L (96-108); Creatinine Clr Calc Pharmacy 18.2; Estimated Glomerular Filt Rate 18; Glucose Random 109 mg/dL (60-115); Potassium 3.3 mmol/L (3.3-5.1); Sodium 133 mmol/L (135-145); Total Protein 5.3 g/dL (6.5-8.0)
[2022-07-27 17:46] LABS: Band Neutrophils Percent 4 % (3-5); Lymphocytes Absolute Manual 2.3 X10*3/uL (1.2-4.9); Lymphocytes Percent Manual 13 % (20-40); Macrocytosis 1+ (5-14) /OIF; Monocytes Absolute Manual 0.4 X10*3/uL (0.1-1.2); Monocytes Percent Manual 2 % (2-11); Neutrophils Absolute Manual 14.9 X10*3/uL (2.0-8.3); Neutrophils Percent Manual 81 % (45-73); Platelet Estimate NORMAL (NORMAL); RBC Morphology NOTED
[2022-07-27 17:47] LABS: Hypochromasia 1+ (5-14) /OIF; Ovalocytes 1+ (5-14) /OIF; Platelet Morphology Comment NORMAL; Polychromasia 1+ (0-2) /OIF
[2022-07-27 17:48] LABS: Smudge Cells PRESENT; Toxic Granulation PRESENT
[2022-07-27 21:28] VITALS: BP 104/63; PULSE 63; RESP 18; TEMP 35.8; O2SAT 96
[2022-07-28] VITALS (10 sets, daily range): BP systolic 81–107; BP diastolic 47–64; PULSE 78–92; RESP 15–37; TEMP 36.3–37.2; O2SAT 88–99
--- OUTSIDE RECORDS SUMMARY | 2022-07-28 00:19 | XMS_ITS | Continuity of Care Document ---
:1950 Author Organization [facility] Address [address] [place] [address], [address] [place] [id number]- Care Team Providers Name Role Phone Sammy Calixto Primary Care Physician Encounter [facility] [place] ACCT R [id number] Date(s): 06/07/22 - 07/07/22 [facility] [address] [place] [address], [address] [place] [id number] Attending Physician: Dorothy Ricardo Admitting Physician: Dorothy Ricardo Referring Physician: AdmtrDorothy Allergies, Adverse Reactions, Alerts Substance Reaction Severity Status doxycycline Hives Active cefuroxime Rash Active amoxicillin Rash Active sulfa drugs Active Immunizations Given and Recorded Vaccine Date Status Refusal Reason pneumococcal 23-valent vaccine 12/26/13 Given Medications Atenolol = 25 mg, By Mouth, Daily, 0 Refills, Maintenance, 12/25/13 12:27:22 Start Date: 12/25/13 Status: Orderedciprofloxacin 250 mg oral tablet 1 tablet = 250 mg, By Mouth, Every 12 hours, 0 Refills, Maintenance, 04/26/22 9:43:00 EDT, Partial fill upon patient request if the prescription is for a schedule II opioid drug. Start Date: 04/26/22 Status: OrderedCranberry 0 Refills, Maintenance, 04/26/22 9:43:00 EDT, Partial fill upon patient request if the prescription is for a schedule II opioid drug. Start Date: 04/26/22 Status: OrderedEstrace Vaginal Cream 0.1 mg/g See Instructions, 1 gram Vaginally at bedtime twice per week, # 42 Gm, 4 Refills, Maintenance, 04/26/22 10:09:00 EDT, [facility], Partial fill upon patient request if the prescription is for a schedule II opioid drug., 157.5, cm, ... Start Date: 04/26/22 Status: OrderedEstradiol = 1 mg, By Mouth, Daily, 0 Refills, Maintenance, 12/25/13 12:26:36 Start Date: 12/25/13 Status: OrderedFlax Seed Oil 0 Refills, Maintenance, 04/26/22 9:43:00 EDT, Partial fill upon patient request if the prescription is for a schedule II opioid drug. Start Date: 04/26/22 Status: Orderedlevothyroxine 0.05 mg oral tablet 1 tablet = 50 mcg, By Mouth, Daily, 0 Refills, Maintenance, 02/24/15 10:54:55 Start Date: 02/24/15 Status: Orderedlorazepam 0.5 mg oral tablet = 0.5 mg, By Mouth, Once, 0 Refills, Maintenance, 02/25/15 8:43:06, Tablet Start Date: 02/25/15 Status: OrderedmetFORMIN 500 mg oral tablet 1 tablet = 500 mg, By Mouth, 2 times a day, 0 Refills, Maintenance, 04/26/22 9:43:00 EDT, Partial fill upon patient request if the prescription is for a schedule II opioid drug. Start Date: 04/26/22 Status: Orderedsimvastatin 40 mg oral tablet 40 mg, 1, tablet, By Mouth, Daily at bedtime, Refills 0, Maintenance, 04/26/22 9:42:00 EDT, Partial fill upon patient request if the prescription is for a schedule II opioid drug. Start Date: 04/26/22 Status: OrderedVitamin C By Mouth, Daily, 0 Refills, Maintenance, 04/26/22 9:43:00 EDT, Partial fill upon patient request if the prescription is for a schedule II opioid drug. Start Date: 04/26/22 Status: Ordered Problem List Condition Effective Dates Status Health Status Informant Acute sinusitis(Confirmed) Active Yeast infection of the Active vagina(Confirmed) Cardiac arrhythmia(Confirmed) Active Chest pain(Confirmed) Active Diabetes(Confirmed) Active Dysuria(Confirmed) Active Flank pain(Confirmed) Active Hypertension(Confirmed) Active Urinary frequency(Confirmed) Active Left knee pain(Confirmed) Active Postmenopausal(Confirmed) Active Recurrent UTI(Confirmed) Active Rib pain on right side(Confirmed) Active Social History Social History Type Response Smoking Status Former smoker entered on: 02/24/15 Sex Care Team PersonnelName: Sammy Calixto Address: [address] [place], [place] [address]
--- OUTSIDE RECORDS SUMMARY | 2022-07-28 00:19 | XMS_ITS | Continuity of Care Document ---
:1950 Author Organization [facility] Address [address] [place] [id number]- Care Team Providers Name Role Phone Sammy Calixto Primary Care Physician Encounter [facility] [place] Date(s): 05/02/22 - 06/01/22 [facility] [address] [id number] Allergies, Adverse Reactions, Alerts Substance Reaction Severity [...] a schedule II opioid drug., 157.5, cm, 2... Start Date: 04/26/22 Status: OrderedEstradiol = 1 [...]
--- OUTSIDE RECORDS SUMMARY | 2022-07-28 00:19 | XMS_ITS | Continuity of Care Document ---
:1950 Author Organization [facility] Address [address] [place] [address], [address] [place] [id number]- Care Team Providers Name Role Phone Sammy Calixto Primary Care Physician Encounter [facility] [place] ACCT R [id number] Date(s): 04/26/22 - 05/26/22 [facility] [employer] [facility] [address] [place] [address], [address] [place] [id number] Attending Physician: Dorothy Ricardo Admitting Physician: Dorohty Ricardo Referring Physician: AdmtrDorothy Allergies, Adverse Reactions, Alerts Substance Reaction Severity Status doxycycline Hives Active cefuroxime Rash Active sulfa drugs Active amoxicillin Rash Active Immunizations Given and Recorded Vaccine Date [...]
--- OUTSIDE RECORDS SUMMARY | 2022-07-28 00:19 | XMS_ITS | Continuity of Care Document ---
:1950 Author [facility] Address [address] [place] [id number]- Care Team Providers Name Role Phone Sammy Calixto Primary Care Physician Encounter [facility] [place] Date(s): 04/27/22 - 05/27/22 [facility] [address], [address] [place] [id number] Allergies, Adverse Reactions, Alerts Substance Reaction Severity [...]
[2022-07-28 02:00] LABS: Appearance Urine Clear; Color Urine Dark Yellow; Glucose Urine UA Negative (Negative); Leukocyte Esterase Urine Small (1+) (Negative); Nitrite Urine Negative (Negative); Specific Gravity - Urine 1.025 (1.005-1.025); UMIC TRIGGER UACC YES; Urine Blood Negative (Negative); Urine Ketones Trace mg/dL (Negative); Urine Protein Trace mg/dL (Neg-Trace)
[2022-07-28 02:11] LABS: Bacteria Urine 1+ (None Seen); Hyaline Casts Urine >20 /LPF (0-2); RBC Urine 0-2 /HPF (0-2); UACC Culture Trigger YES; WBC Urine 21-50 /HPF (0-5)
--- NOTE | 2022-07-28 02:12 | ED.ABDPAIN ---
HPI - Abdominal Pain General Chief Complaint: Abdominal Pain Stated Complaint: high BP/abd pain Time Seen by Provider: 07/28/22 02:10 Source: patient Mode of arrival: ambulatory Limitations: no limitations History of Present Illness HPI narrative: Patient is 71 years old with metastatic pancreatic cancer with peritoneal carcinomatosis, diabetes mellitus, hypertension, anxiety disorder, hypothyroidism sent by a [employer]downs toe former for systolic blood pressure in 80s and worsening of renal functions. patient denies any nausea vomiting and/or surgeon is abdominal pain which is nonradiating and constant no fever or chills also has burning sensation when she urinates does not have any stents year frequency no chest pain or palpitation no syncope no significant shortness of breath patient usual creatinine was 1.13 on 07/24 was 2.18 and today was 2.56 patient states she not urinating as much as he used to in the past Related Data Home Medications Medication Instructions Recorded Confirmed latanoprost 0.005 % eye drops 1 drp ophthalmic (eye) BEDTIME 02/08/21 07/25/22 Saccharomyces boulardii 250 mg 250 mg PO BID 05/01/22 07/25/22 capsule (Daily Probiotic (S. boulardii)) fluticasone propionate 50 2 spray intranasal DAILY PRN 06/06/22 07/25/22 mcg/actuation nasal Allergic Symptoms spray,suspension (Flonase Allergy Relief) Previous Rx's Medication Instructions Recorded hydrocortisone 2.5 % topical cream 1 appl topical TID PRN itching #28 12/18/20 grams ascorbic acid (vitamin C) 1,000 mg 1 g PO DAILY 90 days #90 tabs 07/28/21 tablet omeprazole 20 mg capsule,delayed 20 mg PO DAILY #90 caps 02/02/22 release lisinopril 2.5 mg tablet 2.5 mg PO DAILY #90 tabs 03/15/22 methenamine hippurate 1 gram tablet 1 g PO DAILY 90 days #90 tabs 03/22/22 levothyroxine 50 mcg tablet 50 mcg PO QAM 90 days #90 tabs 04/02/22 metformin 500 mg tablet,extended 1,000 mg PO BID 30 days #120 tabs 06/04/22 release 24 hr nutritional supplement-fiber oral 1 ea PO .po 12 days #3,960 mL 06/06/22 liquid (Ensure Plant-Based Protein oral liquid) ferrous sulfate 325 mg (65 mg 325 mg PO DAILY 30 days #30 tabs 06/12/22 iron) tablet simvastatin 40 mg tablet 40 mg PO BEDTIME 90 days #90 tabs 06/12/22 ciprofloxacin HCl 250 mg tablet 250 mg PO DAILY UTI suppression 06/20/22 therapy 30 days #30 tabs oxycodone 5 mg tablet 5 mg PO Q8H PRN pain 7 days #21 06/25/22 tabs dexamethasone 4 mg tablet 4 mg PO BID #30 tabs 06/27/22 estradiol 0.5 mg tablet 0.5 mg PO DAILY 90 days #90 tabs 06/27/22 pantoprazole 40 mg tablet,delayed 40 mg PO DAILY 30 days #30 tabs 07/07/22 release atenolol 25 mg tablet 12.5 mg PO DAILY #15 tabs 07/11/22 blood sugar diagnostic (FreeStyle #100 ea 07/16/22 Lite Strips) blood-glucose meter (FreeStyle #1 ea 07/16/22 [place] Lite kit) lancets 28 gauge (FreeStyle #100 ea 07/16/22 Lancets) pediatric [id number] 1 tab PO DAILY #90 tabs 07/18/22 (Multi-Vitamins with Iron chewable tablet) nitrofurantoin macrocrystal 100 mg 100 mg PO BID 7 days #14 caps 07/20/22 capsule ondansetron HCl 4 mg tablet 4 mg PO Q8H #50 tabs 07/20/22 acetaminophen 300 mg-codeine 30 mg 1 tab PO Q8H pain 7 days #21 tabs 07/24/22 tablet potassium chloride 10 mEq 20 meq PO DAILY #60 tabs 07/24/22 tablet,extended release (K-Tab) lorazepam 0.5 mg tablet 0.5 mg PO BEDTIME PRN anxiety #30 07/26/22 tabs Allergies Allergy/AdvReac Type Severity Reaction Status Date / Time amoxicillin [From Augmentin] Allergy Intermediate rash Verified 07/27/22 16:25 cefuroxime [From CEFTIN] Allergy Intermediate RASH Verified 07/27/22 16:25 clavulanic acid Allergy Intermediate rash Verified 07/27/22 16:25 [From Augmentin] doxycycline [DOXYCYCLINE] Allergy Intermediate HIVES Verified 07/27/22 16:25 Sulfa (Sulfonamide Allergy Intermediate unknown Verified 07/27/22 16:25 Antibiotics) Review of Systems Review of Systems Yes all other systems are reviewed and are negative [facility] Past Medical History Medical History Acute sinusitis Cardiac arrhythmia Chest pain Diabetes Dysuria Dysuria Flank pain HTN (hypertension) Left knee pain Post-menopausal Recurrent UTI Rib pain on right side Sinusitis Urinary frequency Urinary tract infection Yeast infection of the vagina Surgical History H/O: hysterectomy History of cardiac radiofrequency ablation Family History Family History Father CVD (cardiovascular disease) Mother No problems noted. Social History Social History Household Members: Spouse Housing: House Alcohol intake: current Alcohol intake frequency: holidays/special occasions only Alcohol type: beer and wine Patient Tobacco Use Status: Former Tobacco user Tobacco use type: Cigarette e-Cigarette/Vaping Use: Never Used Second Hand Smoke Exposure: Yes Advance Directives: Yes Advance Directives on File: Yes Advance Directives Date on File: 06/21/22 service: No Current occupational status: retired Current occupation: rt handed Cognitive needs: No Hearing needs: No Vision needs: Yes Physical Exam ED Vital Signs: Vital Signs - 24 hr 07/27/22 16:25 07/27/22 21:28 07/28/22 00:14 Temperature 98.3 F 96.5 F L 98.1 F Pulse Rate 83 63 82 Respiratory Rate 18 18 15 Blood Pressure 109/67 104/63 107/64 Pulse Oximetry 98 96 99 Oxygen Delivery Method Room Air Room Air Room Air 07/28/22 01:52 07/28/22 02:10 07/28/22 04:01 Temperature 98.1 F 98.1 F Pulse Rate 87 79 88 Respiratory Rate 30 H 24 H 37 H Blood Pressure 91/49 L 106/63 81/47 L Pulse Oximetry 88 L 96 97 Oxygen Delivery Method Room Air Room Air Room Air 07/28/22 04:43 Temperature Pulse Rate Respiratory Rate 24 H Blood Pressure 100/48 L Pulse Oximetry Oxygen Delivery Method BMI result Body Mass Index 26.0 Appearance: Alert. Oriented X3. No acute distress. Looks sick Eyes: PERRLA, No Nystagmus pallor+ ENT: Pharynx normal. Oral Mucosa moist Neck: Normal inspection. Neck supple. CVS: Normal heart rate and rhythm. Pulses normal. Respiratory: No respiratory distress. Equal air entry bilateral, no wheezing/rales/rhonchi Abdomen: Soft distended nontender fluid thrill+. Bowel sounds are present, no mass palpable, no CVA tenderness Skin: Skin warm and dry. Normal skin color. Normal skin turgor. Extremities: 3+lower extremity edema. No calf tenderness Neuro: Oriented X 3. No motor deficit. No sensory deficit.No cerebellar signs , cranial nerves II-XII intact MDM - Abdominal Pain MDM Narrative Medical decision making narrative: Patient with UTI with sepsiswith leukocytosis with normal lactic acid level with hypotension, not in septic shock blood pressure improved after IV fluids and IV albumin and Midodrine patient was given cefepime IV antibiotic peritoneum fluid negative for SBP CT scan showed moderate to large volume ascites and carcinomatosis changes. Ascitic fluid was not drained because of hypertension will admit patient for and IV antibiotic treatment Focused exam for sepsis was done at 4 am Medical Records Attestation: I reviewed the patient's medical records. Lab Data Attestation: I reviewed the patient's lab results. Result diagrams: 07/27/22 16:33 07/27/22 16:33 Labs: Lab Results 07/27/22 07/27/22 07/28/22 Range/Units 16:33 16:33 01:51 WBC 17.5 H (4.8-10.8) X10*3/uL RBC 3.82 L (4.20-5.50) X10*6/uL Hgb 9.4 L (12.0-16.0) g/dl Hct 28.7 L (37.0-47.0) % MCV 75.1 L (80.0-98.0) fL MCH 24.6 L (27.0-33.0) pg MCHC 32.8 (31.0-35.0) g/dl RDW 16.6 H (11.0-16.0) % Plt Count 154 L D (160-400) X10*3/uL MPV 10.6 (9.4-12.3) fL Immature Gran % (Auto) Cancelled Neut % (Auto) Cancelled Lymph % (Auto) Cancelled [place] % (Auto) Cancelled Eos % (Auto) Cancelled Baso % (Auto) Cancelled Lymph # (Auto) Cancelled [place] # (Auto) Cancelled Eos # (Auto) Cancelled Baso # (Auto) Cancelled Abs Immat Gran (auto) Cancelled Absolute Neuts (auto) Cancelled Absolute Nucleated RBC 0.120 H (0.0-0.012) X10*3/uL Nucleated RBC % (auto) 0.7 H (0.0-0.2) /100WBC Neutrophils % (Manual) 81 H (45-73) % Band Neutrophils % 4 (3-5) % Lymphocytes % (Manual) 13 L (20-40) % Monocytes % (Manual) 2 (2-11) % Abs Neuts (Manual) 14.9 H (2.0-8.3) X10*3/uL Lymphocytes # (Manual) 2.3 (1.2-4.9) X10*3/uL Monocytes # (Manual) 0.4 (0.1-1.2) X10*3/uL Smudge Cells PRESENT Toxic Granulation PRESENT Platelet Estimate NORMAL (NORMAL) Plt Morphology Comment NORMAL RBC Morphology NOTED Polychromasia 1+ (0-2) /OIF Hypochromasia 1+ (5-14) /OIF Macrocytosis 1+ (5-14) /OIF Ovalocytes 1+ (5-14) /OIF PT (10.0-13.1) SEC INR (0.9-1.1) Sodium 133 L (135-145) mmol/L Potassium 3.3 D (3.3-5.1) mmol/L Chloride 90 L (96-108) mmol/L Carbon Dioxide 28 (22-29) mmol/L Anion Gap 18 (12-20) BUN 33 H (9-16) mg/dL Creatinine 2.56 H (0.5-1.4) mg/dL Estim Creat Clear Calc 18.2 Estimated GFR 18 Random Glucose 109 (60-115) mg/dL Lactic Acid (0.5-2.0) mmol/L Calcium 8.3 L (8.4-10.2) mg/dL Magnesium 2.2 (1.6-2.6) mg/dL Total Bilirubin 0.4 (0.0-1.0) mg/dL AST 27 (5-31) U/L ALT 15 (0-31) U/L Alkaline Phosphatase 219 H D (39-117) U/L Total Protein 5.3 L (6.5-8.0) g/dL Albumin 2.9 L (3.5-5.0) g/dL Lipase 18 (8-78) U/L Urine Color Dark Yellow Urine Appearance Clear Urine pH 5.0 (5.0-9.0) Ur Specific [place] 1.025 (1.005-1.025) Urine Protein Trace (Neg-Trace) mg/dL Urine Glucose (UA) Negative (Negative) mg/dL Urine Ketones Trace (Negative) mg/dL Urine Blood Negative (Negative) Urine Nitrite Negative (Negative) Ur Leukocyte Esterase Small (1+) H (Negative) Urine RBC 0-2 (0-2) /HPF Urine WBC 21-50 H (0-5) /HPF Ur Squamous Epith Cells 6-10 (0-2) /HPF Urine Bacteria 1+ (None Seen) Hyaline Casts >20 (0-2) /LPF Peritoneal WBC X10*3/uL Peritoneal RBC X10*6/uL Periton Neutrophils % Periton Lymphocytes % Peritoneal Monocytes % Peritoneal Other Cells % COVID-19 ([facility]) (Negative) COVID-19 Clin Com 07/28/22 07/28/22 07/28/22 Range/Units 02:28 02:28 04:46 WBC (4.8-10.8) X10*3/uL RBC (4.20-5.50) X10*6/uL Hgb (12.0-16.0) g/dl Hct (37.0-47.0) % MCV (80.0-98.0) fL MCH (27.0-33.0) pg MCHC (31.0-35.0) g/dl RDW (11.0-16.0) % Plt Count (160-400) X10*3/uL MPV (9.4-12.3) fL Immature Gran % (Auto) Neut % (Auto) Lymph % (Auto) [place] % (Auto) Eos % (Auto) Baso % (Auto) Lymph # (Auto) [place] # (Auto) Eos # (Auto) Baso # (Auto) Abs Immat Gran (auto) Absolute Neuts (auto) Absolute Nucleated RBC (0.0-0.012) X10*3/uL Nucleated RBC % (auto) (0.0-0.2) /100WBC Neutrophils % (Manual) (45-73) % Band Neutrophils % (3-5) % Lymphocytes % (Manual) (20-40) % Monocytes % (Manual) (2-11) % Abs Neuts (Manual) (2.0-8.3) X10*3/uL Lymphocytes # (Manual) (1.2-4.9) X10*3/uL Monocytes # (Manual) (0.1-1.2) X10*3/uL Smudge Cells Toxic Granulation Platelet Estimate (NORMAL) Plt Morphology Comment RBC Morphology Polychromasia /OIF Hypochromasia /OIF Macrocytosis /OIF Ovalocytes /OIF PT 15.4 H (10.0-13.1) SEC INR 1.3 H (0.9-1.1) Sodium (135-145) mmol/L Potassium (3.3-5.1) mmol/L Chloride (96-108) mmol/L Carbon Dioxide (22-29) mmol/L Anion Gap (12-20) BUN (9-16) mg/dL Creatinine (0.5-1.4) mg/dL Estim Creat Clear Calc Estimated GFR Random Glucose (60-115) mg/dL Lactic Acid 1.6 (0.5-2.0) mmol/L Calcium (8.4-10.2) mg/dL Magnesium (1.6-2.6) mg/dL Total Bilirubin (0.0-1.0) mg/dL AST (5-31) U/L ALT (0-31) U/L Alkaline Phosphatase (39-117) U/L Total Protein (6.5-8.0) g/dL Albumin (3.5-5.0) g/dL Lipase (8-78) U/L Urine Color Urine Appearance Urine pH (5.0-9.0) Ur Specific [place] (1.005-1.025) Urine Protein (Neg-Trace) mg/dL Urine Glucose (UA) (Negative) mg/dL Urine Ketones (Negative) mg/dL Urine Blood (Negative) Urine Nitrite (Negative) Ur Leukocyte Esterase (Negative) Urine RBC (0-2) /HPF Urine WBC (0-5) /HPF Ur Squamous Epith Cells (0-2) /HPF Urine Bacteria (None Seen) Hyaline Casts (0-2) /LPF Peritoneal WBC 0.090 X10*3/uL Peritoneal RBC < 0.002 X10*6/uL Periton Neutrophils 12 % Periton Lymphocytes 34 % Peritoneal Monocytes 14 % Peritoneal Other Cells 40 % COVID-19 ([facility]) (Negative) COVID-19 Clin Com 07/28/22 Range/Units 04:46 WBC (4.8-10.8) X10*3/uL RBC (4.20-5.50) X10*6/uL Hgb (12.0-16.0) g/dl Hct (37.0-47.0) % MCV (80.0-98.0) fL MCH (27.0-33.0) pg MCHC (31.0-35.0) g/dl RDW (11.0-16.0) % Plt Count (160-400) X10*3/uL MPV (9.4-12.3) fL Immature Gran % (Auto) Neut % (Auto) Lymph % (Auto) [place] % (Auto) Eos % (Auto) Baso % (Auto) Lymph # (Auto) [place] # (Auto) Eos # (Auto) Baso # (Auto) Abs Immat Gran (auto) Absolute Neuts (auto) Absolute Nucleated RBC (0.0-0.012) X10*3/uL Nucleated RBC % (auto) (0.0-0.2) /100WBC Neutrophils % (Manual) (45-73) % Band Neutrophils % (3-5) % Lymphocytes % (Manual) (20-40) % Monocytes % (Manual) (2-11) % Abs Neuts (Manual) (2.0-8.3) X10*3/uL Lymphocytes # (Manual) (1.2-4.9) X10*3/uL Monocytes # (Manual) (0.1-1.2) X10*3/uL Smudge Cells Toxic Granulation Platelet Estimate (NORMAL) Plt Morphology Comment RBC Morphology Polychromasia /OIF Hypochromasia /OIF Macrocytosis /OIF Ovalocytes /OIF PT (10.0-13.1) SEC INR (0.9-1.1) Sodium (135-145) mmol/L Potassium (3.3-5.1) mmol/L Chloride (96-108) mmol/L Carbon Dioxide (22-29) mmol/L Anion Gap (12-20) BUN (9-16) mg/dL Creatinine (0.5-1.4) mg/dL Estim Creat Clear Calc Estimated GFR Random Glucose (60-115) mg/dL Lactic Acid (0.5-2.0) mmol/L Calcium (8.4-10.2) mg/dL Magnesium (1.6-2.6) mg/dL Total Bilirubin (0.0-1.0) mg/dL AST (5-31) U/L ALT (0-31) U/L Alkaline Phosphatase (39-117) U/L Total Protein (6.5-8.0) g/dL Albumin (3.5-5.0) g/dL Lipase (8-78) U/L Urine Color Urine Appearance Urine pH (5.0-9.0) Ur Specific [place] (1.005-1.025) Urine Protein (Neg-Trace) mg/dL Urine Glucose (UA) (Negative) mg/dL Urine Ketones (Negative) mg/dL Urine Blood (Negative) Urine Nitrite (Negative) Ur Leukocyte Esterase (Negative) Urine RBC (0-2) /HPF Urine WBC (0-5) /HPF Ur Squamous Epith Cells (0-2) /HPF Urine Bacteria (None Seen) Hyaline Casts (0-2) /LPF Peritoneal WBC X10*3/uL Peritoneal RBC X10*6/uL Periton Neutrophils % Periton Lymphocytes % Peritoneal Monocytes % Peritoneal Other Cells % COVID-19 ([facility]) Negative (Negative) COVID-19 Clin Com See Note ECG Data Attestation: I personally reviewed and interpreted this ECG as follows: Discharge Plan Discharge Clinical Impression: Sepsis due to urinary tract infection, Pancreatic adenocarcinoma, Carcinomatosis peritonei, Acute renal failure Patient Disposition: Admitted As Inpatient
[2022-07-28] MEDS: cefEPime HCl 2 GM in 0.9 % Sodium Chloride 50 ML IV (02:35)
[2022-07-28] MEDS: 0.9 % Sodium Chloride 1,000 ML 999 ML IV (02:35)
[2022-07-28 02:39] LABS: INTERNATIONAL NORM RATIO 1.3 (0.9-1.1); Prothrombin Time 15.4 SEC (10.0-13.1)
[2022-07-28 02:40] LABS: Lipase 18 U/L (8-78); Magnesium 2.2 mg/dL (1.6-2.6)
[2022-07-28 02:44] LABS: Lactic Acid 1.6 mmol/L (0.5-2.0)
[2022-07-28] MEDS: Albumin Human 25 % 100 ML IV ×3 (03:13→07:27)
[2022-07-28] MEDS: Midodrine HCl 10 MG TABLET PO (04:00)
--- NOTE | 2022-07-28 04:08 | PC.NURSE ---
Pt blood pressures decreasing. Pt BP 85/47, RR 30. Pt received 1 liter bolus fluids, 2gm cefepime IV, 25g albumin x 2 doses. Pt on monitor tech. Resting comfortably. No code status in chart at this time. made aware by this RN. MD states he will have conversation wit patient regarding code status...
--- NOTE | 2022-07-28 04:40 | PC.NURSE ---
diagnostic paracentesis done by MD Mckeon. pt blood pressures holding 90/55. Pt resting comfortably on stretcher.
[2022-07-28] MEDS: Lidocaine HCl 1 % MPF 2 ML VIAL INFILTRATI (04:43)
[2022-07-28 04:53] LABS: MN% 68.8 %; PMN% 31.2 %
[2022-07-28 05:01] LABS: RBC Peritoneal Fluid < 0.002 X10*6/uL
[2022-07-28 05:07] LABS: COVID-19 Test Negative (Negative)
[2022-07-28 05:42] LABS: BF Shift QC OK YES
[2022-07-28 05:43] LABS: Lymphocyte Peritoneal Fl 34 %; Monocytes Peritoneal Fl 14 %
[2022-07-28 05:45] LABS: Neutrophils Peritoneal Fluid 12 %; Other Peritioneal Fl 40 %
--- NOTE | 2022-07-28 06:11 | P.HPHOSP_ITS ---
History of Present Illness Date of Service: 07/28/22 Chief Complaint: Low blood pressure This is a 71-year-old female with pertinent history of metastatic pancreatic cancer with peritoneal carcinomatosis, qpg-cgkarno-bigbqnmte diabetes mellitus, essential hypertension, generalized anxiety disorder, hypothyroidism who presents to the emergency department at the behest of her director speech for evaluation and management of low blood pressure. Patient was sent to director speech's office by her oncologist due to progressive renal insufficiency with hypokalemia. At the director speech's office, patient's blood pressure was found to be low and she said was sent to the ER for further evaluation and management. Patient states her blood pressure is usually within normal limits with systolic around 120 sclerae she denies dizziness or lightheadedness. Does endorse generalized abdominal pain, nonradiating, constant. No fever or chills. Denies burning micturition but does have urinary hesitancy. No chest discomfo rt, shortness of breath, cough, changes in bowel habits Review of Systems Review of Systems: All 13 review of systems are negative except as noted in [facility] Medical History Acute sinusitis Cardiac arrhythmia Chest pain Diabetes Dysuria Dysuria Flank pain HTN (hypertension) Left knee pain Post-menopausal Recurrent UTI Rib pain on right side Sinusitis Urinary frequency Urinary tract infection Yeast infection of the vagina Family History Father CVD (cardiovascular disease) Mother No problems noted. Surgical History H/O: hysterectomy History of cardiac radiofrequency ablation Social History Household Members: Spouse Housing: House Alcohol intake: current Alcohol intake frequency: holidays/special occasions o nly Alcohol type: beer and wine Patient Tobacco Use Status: Former Tobacco user Tobacco use type: Cigarette e-Cigarette/Vaping Use: Never Used Second Hand Smoke Exposure: Yes Advance Directives: Yes Advance Directives on File: Yes Advance Directives Date on File: 06/21/22 service: No Current occupational status: retired Current occupation: rt handed Cognitive needs: No Hearing needs: No Vision needs: Yes Meds Allergies Allergy/AdvReac Type Severity Reaction Status Date / Time amoxicillin [From Augmentin] Allergy Intermediate rash Verified 07/27/22 16:25 cefuroxime [From CEFTIN] Allergy Intermediate RASH Verified 07/27/22 16:25 clavulanic acid Allergy Intermediate rash Verified 07/27/22 16:25 [From Augmentin] doxycycline [DOXYCYCLINE] Allergy Intermediate HIVES Verified 07/27/22 16:25 Sulfa (Sulfonamide Allergy Intermediate unknown Verified 07/27/22 16:25 Antibiotics) Active Medications: Current Medications Acetaminophen (Acetaminophen 325 Mg Tablet) 650 mg PO Q6H PRN PRN Reason: Pain, Mild (Pain Scale 1-3) Dextrose (Dextrose 50 % 25 Gm/50 Ml Syringe) 25 gm IVPUSH Q15M PRN; Protocol PRN Reason: per Hypoglycemia Standing Ord. Enoxaparin Sodium (Enoxaparin Sodium 30 Mg/0.3 Ml Syringe) 30 mg SUBCUT Q24H [facility] Glucose (Glucose Gel 15 Gm Gel..Gram.) 15 gm PO Q15M PRN; Protocol PRN Reason: per Hypoglycemia Standing Ord. Insulin Human Lispro (Insulin Lispro 100 Unit/Ml 3 Ml Vial) 0 unit SUBCUT QIDACHS [facility]; Protocol Stop: 07/29/22 06:08 Melatonin (Melatonin 3 Mg Tablet) 6 mg PO BEDTIME PRN PRN Reason: Insomnia Ondansetron HCl (Ondansetron Hcl 4 Mg/2 Ml Vial) 4 mg IVPUSH Q8H PRN PRN Reason: Nausea and Vomiting Pharmacy Consult (Consult Rx Perform Med Rec) 1 each MISCELLANE ONCE PRN PRN Reason: Consult order Sodium Chloride (0.9 % Sodium Chloride Flush 3 Ml Syringe) 3 [facility] Home Medications Medication Instructions Recorded Confirmed Last Taken Type latanoprost 0.005 % eye drops 1 drp ophthalmic (eye) BEDTIME 02/08/21 07/25/22 Unknown History Saccharomyces boulardii 250 mg 250 mg PO BID 05/01/22 07/25/22 Unknown History capsule (Daily Probiotic (S. boulardii)) fluticasone propionate 50 2 spray intranasal DAILY PRN 06/06/22 07/25/22 Unknown History mcg/actuation nasal Allergic Symptoms spray,suspension (Flonase Allergy Relief) Physical Exam Vital Signs and Narrative: Vital Signs: Last Vital Signs Temp 98.1 F 07/28/22 04:01 Pulse 88 07/28/22 04:01 Resp 24 H 07/28/22 04:43 BP 100/48 L 07/28/22 04:43 Pulse Ox 97 07/28/22 04:01 O2 Del Method 07/28/22 04:01 BMI result Body Mass Index 26.0 Middle-aged female lying in bed in no distress Neck supple, no JVD Regular rate and rhythm, S1-S2 heard Decreased breath sound at bases Abdomen distended with generalized tenderness to palpation, no rigidity, no rebound tenderness, no guarding Patient is awake, alert and oriented to self, place, time and person ; no focal motor deficit Psych: Anxious Bilateral pedal edema Results Labs CBC and Chem 7: 07/27/22 16:33 07/27/22 16:33 Labs: Laboratory Results - last 24 hr 07/27/22 07/27/22 07/28/22 16:33 16:33 01:51 MCV 75.1 L MCH 24.6 L MCHC 32.8 RDW 16.6 H Plt Count 154 L D MPV 10.6 Immature Gran % (Auto) Cancelled Neut % (Auto) Cancelled Lymph % (Auto) Cancelled Dewey % (Auto) Cancelled Eos % (Auto) Cancelled Baso % (Auto) Cancelled Lymph # (Auto) Cancelled Dewey # (Auto) Cancelled Eos # (Auto) Cancelled Baso # (Auto) Cancelled Abs Immat Gran (auto) Cancelled Absolute Neuts (auto) Cancelled Absolute Nucleated RBC 0.120 H Nucleated RBC % (auto) 0.7 H Neutrophils % (Manual) 81 H Band Neutrophils % 4 Lymphocytes % (Manual) 13 L Monocytes % (Manual) 2 Abs Neuts (Manual) 14.9 H Lymphocytes # (Manual) 2.3 Monocytes # (Manual) 0.4 Smudge Cells PRESENT Toxic Granulation PRESENT Platelet Estimate NORMAL Plt Morphology Comment NORMAL RBC Morphology NOTED Polychromasia 1+ (0-2) Hypochromasia 1+ (5-14) Macrocytosis 1+ (5-14) Ovalocytes 1+ (5-14) PT INR Anion Gap 18 Estim Creat Clear Calc 18.2 Estimated GFR 18 Random Glucose 109 Lactic Acid Calcium 8.3 L Magnesium 2.2 Total Bilirubin 0.4 AST 27 ALT 15 Alkaline Phosphatase 219 H D Total Protein 5.3 L Albumin 2.9 L Lipase 18 Urine Color Dark Yellow Urine Appearance Clear Urine pH 5.0 Ur Specific Patrick 1.025 Urine Protein Trace Urine Glucose (UA) Negative Urine Ketones Trace Urine Blood Negative Urine Nitrite Negative Ur Leukocyte Esterase Small (1+) H Urine RBC 0-2 Urine WBC 21-50 H Ur Squamous Epith Cells 6-10 Urine Bacteria 1+ Hyaline Casts >20 Peritoneal WBC Peritoneal RBC Periton Neutrophils Periton Lymphocytes Peritoneal Monocytes Peritoneal Other Cells COVID-19 (ARVIN) COVID-19 Evalve Com 07/28/22 07/28/22 07/28/22 02:28 02:28 04:46 MCV MCH MCHC RDW Plt Count MPV Immature Gran % (Auto) Neut % (Auto) Lymph % (Auto) Dewey % (Auto) Eos % (Auto) Baso % (Auto) Lymph # (Auto) Dewey # (Auto) Eos # (Auto) Baso # (Auto) Abs Immat Gran (auto) Absolute Neuts (auto) Absolute Nucleated RBC Nucleated RBC % (auto) Neutrophils % (Manual) Band Neutrophils % Lymphocytes % (Manual) Monocytes % (Manual) Abs Neuts (Manual) Lymphocytes # (Manual) Monocytes # (Manual) Smudge Cells Toxic Granulation Platelet Estimate Plt Morphology Comment RBC Morphology Polychromasia Hypochromasia Macrocytosis Ovalocytes PT 15.4 H INR 1.3 H Anion Gap Estim Creat Clear Calc Estimated GFR Random Glucose Lactic Acid 1.6 Calcium Magnesium Total Bilirubin AST ALT Alkaline Phosphatase Total Protein Albumin Lipase Urine Color Urine Appearance Urine pH Ur Specific Patrick Urine Protein Urine Glucose (UA) Urine Ketones Urine Blood Urine Nitrite Ur Leukocyte Esterase Urine RBC Urine WBC Ur Squamous Epith Cells Urine Bacteria Hyaline Casts Peritoneal WBC 0.090 Peritoneal RBC < 0.002 Periton Neutrophils 12 Periton Lymphocytes 34 Peritoneal Monocytes 14 Peritoneal Other Cells 40 COVID-19 (ARVIN) COVID-19 Evalve Com 07/28/22 04:46 MCV MCH MCHC RDW Plt Count MPV Immature Gran % (Auto) Neut % (Auto) Lymph % (Auto) Dewey % (Auto) Eos % (Auto) Baso % (Auto) Lymph # (Auto) Dewey # (Auto) Eos # (Auto) Baso # (Auto) Abs Immat Gran (auto) Absolute Neuts (auto) Absolute Nucleated RBC Nucleated RBC % (auto) Neutrophils % (Manual) Band Neutrophils % Lymphocytes % (Manual) Monocytes % (Manual) Abs Neuts (Manual) Lymphocytes # (Manual) Monocytes # (Manual) Smudge Cells Toxic Granulation Platelet Estimate Plt Morphology Comment RBC Morphology Polychromasia Hypochromasia Macrocytosis Ovalocytes PT INR Anion Gap Estim Creat Clear Calc Estimated GFR Random Glucose Lactic Acid Calcium Magnesium Total Bilirubin AST ALT Alkaline Phosphatase Total Protein Albumin Lipase Urine Color Urine Appearance Urine pH Ur Specific Patrick Urine Protein Urine Glucose (UA) Urine Ketones Urine Blood Urine Nitrite Ur Leukocyte Esterase Urine RBC Urine WBC Ur Squamous Epith Cells Urine Bacteria Hyaline Casts Peritoneal WBC Peritoneal RBC Periton Neutrophils Periton Lymphocytes Peritoneal Monocytes Peritoneal Other Cells COVID-19 (ARVIN) Negative COVID-19 Clin Com See Note Imaging Radiologist's Impressions: Impressions Chest X-Ray 07/28/22 05:26 IMPRESSION: No significant pleural effusion. Assessment and Plan (1) Sepsis due to urinary tract infection: Status: Acute (2) Metastasis from pancreatic cancer: Status: Acute (3) Carcinomatosis peritonei: Status: Acute (4) GERD (gastroesophageal reflux disease): Qualifiers: Esophagitis presence: without esophagitis Qualified Code(s): K21.9 - Gastro-esophageal reflux disease without esophagitis Status: Acute (5) Leg edema: Status: Acute (6) Hypothyroidism: Qualifiers: Hypothyroidism type: unspecified Qualified Code(s): E03.9 - Hypothyroidism, unspecified Status: Acute (7) HTN (hypertension): Qualifiers: Hypertension type: unspecified Qualified Code(s): I10 - Essential (primary) hypertension Status: Acute (8) Diabetes: Status: Acute (9) VERO (generalized anxiety disorder): Status: Acute (10) HLD (hyperlipidemia): Qualifiers: Hyperlipidemia type: mixed hyperlipidemia Qualified Code(s): E78.2 - Mixed hyperlipidemia Status: Acute Plan This is a 71-year-old female with pertinent history of metastatic pancreatic cancer with peritoneal carcinomatosis, wmx-utvrrtk-wnjscebcs diabetes mellitus, essential hypertension, generalized anxiety disorder, hypothyroidism who presents to the emergency department at the behest of her director speech for evaluation and management of low blood pressure. #. Sepsis secondary to complicated cystitis -does have a history of recurrent UTI. patient has leukocytosis, hesitancy, low blood pressure and UA suggestive of UTI despite daily suppressive therapy. Urine cultures obtained in the ER. Cannot rule out SBP in a patient with abdominal pain and ascites. Diagnostic tap obtained in the ER, follow-up for PMNs. Will initiate Rocephin. #. Hypotension -likely in the setting of above. Underlying malignancy with hypoalbuminemia is causing 3rd spacing which may also be contributing. Improved with crystalloid and colloid resuscitation in the ER. #. Metastatic pancreatic cancer with peritoneal carcinomatosis -consulted IR for paracentesis. Last received chemotherapy 2 weeks ago. #. Acute kidney injury on chronic kidney disease -likely prerenal in the setting of intravascular volume depletion. Monitor urine output and creatinine with resuscitation #. Exr-fozyjuc-llrcxrrbk diabetes mellitus -hold metformin and initiate Accu-Cheks with sliding scale insulin before meals and at bedtime. #. Essential hypertension -hold p.o. medications #. Hypothyroidism -on levothyroxine #. Chronic microcytic anemia -on iron supplementation. Hemoglobin above transfusion threshold DVT prophylaxis: Lovenox 30 mg daily Diet: Cardiac diet Full code Patient will require two night minimum hospital stay for evaluation and management of hypotension due to sepsis and need for IV antibiotics. Quality Stroke Does the patient have a stroke diagnosis?: No VTE Prior VTE?: No VTE Risk Level:: Medical - moderate - high VTE Device Contraindication: Treatment Not Indicated VTE Drug Contraindication: N/A - Med Ordered
--- NOTE | 2022-07-28 07:01 | ECG_ITS ---
Test Reason : abd pain Blood Pressure : / mmHG Vent. Rate : 079 BPM Atrial Rate : 077 BPM P-R Int : 182 ms QRS Dur : 078 ms QT Int : 404 ms P-R-T Axes : 122 020 040 degrees QTc Int : 463 ms Normal sinus rhythm Low voltage QRS Nonspecific T wave abnormality Abnormal ECG When compared with ECG of 18-JUL-2021 15:12, Nonspecific T wave abnormality now evident in Anterolateral leads Referred By: Kushal Mckeon Electronically Signed By:HENRI CHEN MD
[2022-07-28 07:06] LABS: Estimated Average Glucose 123 mg/dL; Hemoglobin A1C 79.1499 umol/L; Hemoglobin A1c % 5.9 %
[2022-07-28 07:13] LABS: Hematocrit 22.6 % (37.0-47.0); Hemoglobin 7.4 g/dl (12.0-16.0); Mean Corpuscular HGB Conc 32.7 g/dl (31.0-35.0); Mean Corpuscular Hemoglobin 24.9 pg (27.0-33.0); Mean Corpuscular Volume 76.1 fL (80.0-98.0); NRBC Pct Auto 0.6 /100WBC (0.0-0.2); Platelet Count 119 X10*3/uL (160-400); Red Blood Count 2.97 X10*6/uL (4.20-5.50); Red Cell Distribution Width 16.3 % (11.0-16.0); White Blood Count 12.3 X10*3/uL (4.8-10.8)
[2022-07-28 07:19] LABS: Baso%MD 0.2 %; Eos%MD 0.2 %; IG%MD 12.5 %; Lymph%MD 21.2 %; Mono%MD 8.1 %; Neut%MD 57.8 %
[2022-07-28 07:24] LABS: Anion Gap 16 (12-20); Blood Urea Nitrogen 34 mg/dL (9-16); Calcium 8.3 mg/dL (8.4-10.2); Carbon Dioxide 28 mmol/L (22-29); Chloride 93 mmol/L (96-108); Creatinine Clr Calc Pharmacy 18.3; Estimated Glomerular Filt Rate 19; Glucose Random 116 mg/dL (60-115); Potassium 3.2 mmol/L (3.3-5.1); Sodium 134 mmol/L (135-145)
[2022-07-28 07:25] LABS: Glucose, Whole Blood 98 mg/dL (60-115)
[2022-07-28] MEDS: Enoxaparin Sodium 30 MG/0.3 ML SYRINGE SUBCUT (07:32)
[2022-07-28] MEDS: ondansetron HCL 4 MG/2 ML VIAL IVPUSH ×2 (07:33→19:46)
[2022-07-28 07:50] LABS: Atypical Lymph Absolute Manual 0.1 x10*3/uL; Atypical Lymphs Percent Manual 1 % (0-6); Band Neutrophils Percent 2 % (3-5); Lymphocytes Absolute Manual 3.1 X10*3/uL (1.2-4.9); Lymphocytes Percent Manual 25 % (20-40); Monocytes Absolute Manual 0.2 X10*3/uL (0.1-1.2); Monocytes Percent Manual 2 % (2-11); Neutrophils Absolute Manual 8.9 X10*3/uL (2.0-8.3); Neutrophils Percent Manual 70 % (45-73)
[2022-07-28 07:53] LABS: Hypochromasia 1+ (5-14) /OIF; Microcytosis 2+ (15-30) /OIF; Ovalocytes 1+ (5-14) /OIF; Polychromasia 1+ (0-2) /OIF; RBC Morphology NOTED
[2022-07-28 07:54] LABS: Platelet Estimate SLIGHTLY DECREASED (NORMAL); Platelet Morphology Comment NORM
--- NOTE | 2022-07-28 08:57 | P.EN_ITS ---
Event Note Date of Service: 07/28/22 Event Note: This is a 71-year-old female with pertinent history of metastatic pancreatic cancer with peritoneal carcinomatosis, ayt-rjkvoke-zuwbllizp diabetes mellitus, essential hypertension, generalized anxiety disorder, hypothyroidism who presents to the emergency department at the behest of her rn neurosurgical for evaluation and management of low blood pressure. Sepsis secondary to complicated cystitis history of recurrent UTI.? Urine cultures obtained in the ER.? Cannot rule out SBP in a patient with abdominal pain and ascites.? Diagnostic tap obtained in the ER, follow-up for PMNs.? continue Rocephin. Hypotension. Secondary to sepsis Underlying malignancy with hypoalbuminemia is causing 3rd spacing which may also be contributing.? Improved with crystalloid and colloid resuscitation in the ER. Hypokalemia repleted Metastatic pancreatic cancer with peritoneal carcinomatosis consulted IR for paracentesis, sched for Saturday ? Last received chemotherapy 2 weeks ago. Acute kidney injury on chronic kidney disease 4 likely prerenal in the setting of intravascular volume depletion.? Monitor urine output and creatinine with resuscitation Zsr-qnjnrrz-drqhvgwqt diabetes mellitus Sliding scale, ADA diet Essential hypertension. Low blood pressures Hold antihypertensive medications Hypothyroidism Continue levothyroxine Chronic microcytic anemia Iron supplementation Low HH, follow CBC and transfuse as necessary DVT prophylaxis with Lovenox Attending Dr. Palma Full code
[2022-07-28] MEDS: cefTRIAXone sodium 2 GM in 0.9 % Sodium Chloride 50 ML IV (09:16)
[2022-07-28] MEDS: 0.9 % Sodium Chloride Flush 3 ML SYRINGE IVFLUSH ×2 (09:16→15:35)
[2022-07-28] MEDS: Acetaminophen 325 MG TABLET 650 MG PO ×2 (09:42→16:19)
[2022-07-28] MEDS: Potassium Chloride ER 20 MEQ TAB.ER.PRT 40 MEQ PO (09:42)
--- NOTE | 2022-07-28 10:22 | PHA.MEDREC ---
Pharmacy Consult ? Medication Reconciliation Pharmacy has completed the medication reconciliation. Patient reports only taking one tablet (10mEq) of the K-tab, despite claim history depicting 2 tabs (20 mEq) daily. Dexamethasone only used for 2 days after chemo treatment.
[2022-07-28 13:20] LABS: Glucose, Whole Blood 110 mg/dL (60-115)
[2022-07-28 15:57] LABS: Glucose, Whole Blood 119 mg/dL (60-115)
[2022-07-28] MEDS: 0.9 % Sodium Chloride 1,000 ML 100 ML IVCONT (16:11)
[2022-07-28 19:59] LABS: Glucose, Whole Blood 104 mg/dL (60-115)
[2022-07-28] MEDS: LORazepam 0.5 MG TABLET PO (21:01)
[2022-07-28] MEDS: Atorvastatin Calcium 20 MG TABLET PO (21:01)
[2022-07-28] MEDS: dexAMETHasone 4 MG TABLET PO (21:02)
[2022-07-28] MEDS: oxyCODONE HCl Immed Release 5 MG TABLET PO (21:02)
[2022-07-28] MEDS: Melatonin 3 MG TABLET 6 MG PO (23:05)
[2022-07-29] MEDS: 0.9 % Sodium Chloride 1,000 ML 100 ML IVCONT ×3 (01:39→22:10)
[2022-07-29 03:00] VITALS: BP 94/57; PULSE 75; RESP 18; TEMP 36.4; O2SAT 96
[2022-07-29] MEDS: Levothyroxine Sodium 50 MCG TABLET PO (05:37)
[2022-07-29] MEDS: Omeprazole 20 MG CAPSULE.DR PO (05:37)
[2022-07-29 07:26] VITALS: BP 100/55; PULSE 70; RESP 18; TEMP 36.4; O2SAT 93
[2022-07-29 07:55] LABS: Glucose, Whole Blood 172 mg/dL (60-115)
--- NOTE | 2022-07-29 08:20 | MHC.CM.PN ---
CM met with Patient at bedside and addressed IMM with her, providing her with the original and placing a copy on the chart. Patient lives in a 2 family house with her on the second floor and she has been using a cane and new walker to assist with mobility. Home, self care is the goal and CM has initiated and will follow for dc planning. PCP is Dr. Sammy Cordova and Patient has received Moderna/Covid vax X4.
[2022-07-29 08:31] LABS: Hematocrit 22.5 % (37.0-47.0); Hemoglobin 7.2 g/dl (12.0-16.0); Mean Corpuscular Hemoglobin 24.7 pg (27.0-33.0); Mean Corpuscular Volume 77.1 fL (80.0-98.0); Mean Platelet Volume 10.4 fL (9.4-12.3); NRBC Pct Auto 0.3 /100WBC (0.0-0.2); Platelet Count 128 X10*3/uL (160-400); Red Blood Count 2.92 X10*6/uL (4.20-5.50); Red Cell Distribution Width 16.9 % (11.0-16.0); White Blood Count 13.2 X10*3/uL (4.8-10.8)
[2022-07-29] MEDS: Enoxaparin Sodium 30 MG/0.3 ML SYRINGE SUBCUT (08:31)
[2022-07-29] MEDS: dexAMETHasone 4 MG TABLET PO ×2 (08:31→20:53)
[2022-07-29] MEDS: Multivitamin TABLET 1 TAB PO (08:31)
[2022-07-29] MEDS: cefTRIAXone sodium 2 GM in 0.9 % Sodium Chloride 50 ML IV (08:31)
[2022-07-29 08:46] LABS: Anion Gap 14 (12-20); Blood Urea Nitrogen 29 mg/dL (9-16); Calcium 8.2 mg/dL (8.4-10.2); Carbon Dioxide 28 mmol/L (22-29); Chloride 95 mmol/L (96-108); Creatinine Clr Calc Pharmacy 24.4; Estimated Glomerular Filt Rate 26; Glucose Random 176 mg/dL (60-115); Potassium 3.4 mmol/L (3.3-5.1); Sodium 134 mmol/L (135-145)
--- NOTE | 2022-07-29 11:09 | HO.PM.IMPN ---
Subjective Subjective Date of Service: 07/29/22 Review of Systems Follow-up ascites Doing okay, appetite good, ambulating in the room Denies chest pain, shortness breath, nausea, vomiting, diarrhea Physical Exam Vital Signs: Vital Signs: Last Vital Signs Temp 97.6 F 07/29/22 07:26 Pulse 70 07/29/22 07:26 Resp 18 07/29/22 07:26 BP 100/55 L 07/29/22 07:26 Pulse Ox 93 07/29/22 07:26 O2 Del Method 07/29/22 07:26 BMI result Body Mass Index 26.0 Appearing in no acute distress lung sounds are clear to auscultation heart regular rate rhythm, clear S1, S2 positive bowel sounds, abdomen is soft, nontender, mildly distended but soft neuro patient is alert x3, no focal deficits Objective Data Active Medications Acetaminophen (Acetaminophen 325 Mg Tablet) 650 mg PO Q6H PRN PRN Reason: Pain, Mild (Pain Scale 1-3) Last Admin: 07/28/22 16:19 Dose: 650 mg Documented By: PATTY Atorvastatin Calcium (Atorvastatin Calcium 20 Mg Tablet) 20 mg PO BEDTIME [facility] Last Admin: 07/28/22 21:01 Dose: 20 mg Documented By: GALINDO Dexamethasone (Dexamethasone 4 Mg Tablet) 4 mg PO BID [facility] Last Admin: 07/29/22 08:31 Dose: 4 mg Documented By: PATTY Dextrose (Dextrose 50 % 25 Gm/50 Ml Syringe) 25 gm IVPUSH Q15M PRN; Protocol PRN Reason: per Hypoglycemia Standing Ord. Enoxaparin Sodium (Enoxaparin Sodium 30 Mg/0.3 Ml Syringe) 30 mg SUBCUT Q24H [facility] Last Admin: 07/29/22 08:31 Dose: 30 mg Documented By: PATTY Glucose (Glucose Gel 15 Gm Gel..Gram.) 15 gm PO Q15M PRN; Protocol PRN Reason: per Hypoglycemia Standing Ord. Ceftriaxone Sodium 2 gm/ (Sodium Chloride) 50 mls @ 100 mls/hr IV Q24H [facility] Last Infusion: 07/29/22 09:03 Dose: 0 mls/hr Documented By: PATTY Sodium Chloride (Ns) 1,000 mls @ 100 mls/hr IVCONT .Q10H [facility] Last Infusion: 07/29/22 09:03 Dose: 100 mls/hr Documented By: PATTY Levothyroxine Sodium (Levothyroxine Sodium 50 Mcg Tablet) 50 mcg PO DAILY@0600 [facility] Last Admin: 07/29/22 05:37 Dose: 50 mcg Documented By: GALINDO Lorazepam (Lorazepam 0.5 Mg Tablet) 0.5 mg PO BEDTIME PRN PRN Reason: anxiety Last Admin: 07/28/22 21:01 Dose: 0.5 mg Documented By: GALINDO Melatonin (Melatonin 3 Mg Tablet) 6 mg PO BEDTIME PRN PRN Reason: Insomnia Last Admin: 07/28/22 23:05 Dose: 6 mg Documented By: GALINDO Multivitamins/Vitamin C (Multivitamin Tablet) 1 tab PO DAILY [facility] Last Admin: 07/29/22 08:31 Dose: 1 tab Documented By: PATTY Omeprazole (Omeprazole 20 Mg Capsule.Dr) 20 mg PO DAILY@0630 [facility] Last Admin: 07/29/22 05:37 Dose: 20 mg Documented By: GALINDO Ondansetron HCl (Ondansetron Hcl 4 Mg/2 Ml Vial) 4 mg IVPUSH Q8H PRN PRN Reason: Nausea and Vomiting Last Admin: 07/28/22 19:46 Dose: 4 mg Documented By: GALINDO Oxycodone HCl (Oxycodone Hcl Immed Release 5 Mg Tablet) 5 mg PO Q8H PRN PRN Reason: Pain, Moderate (Pain Scale 4-6 Last Admin: 07/28/22 21:02 Dose: 5 mg Documented By: GALINDO Pharmacy Consult (Consult Rx Perform Med Rec) 1 each MISCELLANE ONCE PRN PRN Reason: Consult order Sodium Chloride (0.9 % Sodium Chloride Flush 3 Ml Syringe) 3 ml IVFLUSH QSHIFT [facility] Last Admin: 07/29/22 08:31 Dose: Not Given Documented By: PATTY Non-Admin Reason: IV Running Labs CBC & Chem 7: 07/29/22 07:45 07/29/22 07:45 Labs: Laboratory Results - last 24 hr 07/28/22 07/28/22 07/28/22 13:05 15:28 19:32 MCV MCH MCHC RDW Plt Count MPV Absolute Nucleated RBC Nucleated RBC % (auto) Anion Gap Estim Creat Clear Calc Estimated GFR POC Glucose 110 119 H 104 Random Glucose Calcium 07/29/22 07/29/22 07/29/22 07:25 07:45 07:45 MCV 77.1 L MCH 24.7 L MCHC 32.0 RDW 16.9 H Plt Count 128 L MPV 10.4 Absolute Nucleated RBC 0.040 H Nucleated RBC % (auto) 0.3 H Anion Gap 14 Estim Creat Clear Calc 24.4 Estimated GFR 26 POC Glucose 172 H Random Glucose 176 H Calcium 8.2 L Microbiology Microbiology Results: Microbiology 07/28/22 04:46 Gram Stain - Final Paracentesis Fluid Anaerobic Culture - Preliminary Culture in progress. Body Fluid Culture - Preliminary Culture in progress. 07/28/22 Unknown Urine Culture - Final Urine clean catch - Urine schulte top 07/28/22 02:28 Blood Culture - Preliminary Blood - Venous No growth after 24 hours. 07/28/22 02:28 Blood Culture - Preliminary Blood - Venous No growth after 24 hours. Assessment and Plan (1) Acute renal failure: Status: Acute Plan This is a 71-year-old female with pertinent history of metastatic pancreatic cancer with peritoneal carcinomatosis, usv-qqlcxbj-rswzuohdc diabetes mellitus, essential hypertension, generalized anxiety disorder, hypothyroidism who presents to the emergency department at the behest of her claims analyst for evaluation and management of low blood pressure. Sepsis secondary to complicated cystitis. Sepsis resolved history of recurrent UTI.? Urine cultures mixed moises? Cannot rule out SBP in a patient with abdominal pain and ascites.? Diagnostic tap obtained in the ER, follow-up for PMNs.? continue Rocephin. Hypotension.? Secondary to sepsis Stable Underlying malignancy with hypoalbuminemia is causing 3rd spacing which may also be contributing.? Improved with crystalloid and colloid resuscitation Chronic microcytic anemia Iron supplementation Low HH, follow CBC and transfuse as necessary Check stool occult Hypokalemia repleted Metastatic pancreatic cancer with peritoneal carcinomatosis consulted IR for paracentesis, sched for Saturday ? Last received chemotherapy 2 weeks ago. Acute kidney injury on chronic kidney disease 4 likely prerenal in the setting of intravascular volume depletion.? Monitor urine output and creatinine with resuscitation Tan-zzowpbn-xkggyqhju diabetes mellitus Sliding scale, ADA diet Essential hypertension.? Low blood pressures Hold antihypertensive medications Hypothyroidism Continue levothyroxine DVT prophylaxis with Lovenox Attending Dr. Palma Full code Continue hospitalization for planned paracentesis tomorrow and close monitoring of blood pressure Quality Stroke Does the patient have a stroke diagnosis?: No VTE Prior VTE?: No VTE Risk Level:: Medical - moderate - high VTE Device Contraindication: Treatment Not Indicated VTE Drug Contraindication: N/A - Med Ordered
[2022-07-29 11:15] VITALS: BP 111/54; PULSE 82; RESP 18; TEMP 36.4; O2SAT 97
[2022-07-29 11:40] LABS: Glucose, Whole Blood 176 mg/dL (60-115)
[2022-07-29] MEDS: Acetaminophen 325 MG TABLET 650 MG PO (12:07)
[2022-07-29 15:26] VITALS: BP 117/60; PULSE 78; RESP 17; TEMP 36.9; O2SAT 99
[2022-07-29 16:20] LABS: Glucose, Whole Blood 209 mg/dL (60-115)
[2022-07-29 16:40] LABS: OBS1 NEGATIVE (NEGATIVE)
[2022-07-29 16:41] LABS: OBS Int Ctl Valid YES
[2022-07-29] MEDS: oxyCODONE HCl Immed Release 5 MG TABLET PO (17:30)
[2022-07-29] MEDS: Insulin Lispro 100 UNIT/ML 3 ML VIAL SUBCUT (18:34)
[2022-07-29 19:00] VITALS: BP 105/59; PULSE 85; RESP 17; TEMP 36.9; O2SAT 97
[2022-07-29 20:07] LABS: Glucose, Whole Blood 199 mg/dL (60-115)
[2022-07-29] MEDS: Atorvastatin Calcium 20 MG TABLET PO (20:53)
[2022-07-29] MEDS: ondansetron HCL 4 MG/2 ML VIAL IVPUSH (20:53)
[2022-07-29] MEDS: Loperamide HCl 2 MG CAPSULE PO (22:15)
[2022-07-30] VITALS (8 sets, daily range): BP systolic 101–125; BP diastolic 53–68; PULSE 68–89; RESP 16–18; TEMP 36.1–36.8; O2SAT 96–99
[2022-07-30] MEDS: Loperamide HCl 2 MG CAPSULE PO (00:12)
[2022-07-30] MEDS: LORazepam 0.5 MG TABLET PO (00:14)
[2022-07-30] MEDS: oxyCODONE HCl Immed Release 5 MG TABLET PO ×4 (01:37→20:38)
[2022-07-30] MEDS: Melatonin 3 MG TABLET 6 MG PO (01:37)
[2022-07-30] MEDS: Levothyroxine Sodium 50 MCG TABLET PO (06:36)
[2022-07-30] MEDS: 0.9 % Sodium Chloride 1,000 ML 100 ML IVCONT (06:36)
[2022-07-30] MEDS: Omeprazole 20 MG CAPSULE.DR PO (06:36)
[2022-07-30 07:52] LABS: Glucose, Whole Blood 158 mg/dL (60-115)
[2022-07-30] MEDS: cefTRIAXone sodium 2 GM in 0.9 % Sodium Chloride 50 ML IV (08:18)
[2022-07-30] MEDS: Multivitamin TABLET 1 TAB PO (08:18)
[2022-07-30] MEDS: dexAMETHasone 4 MG TABLET PO ×2 (08:18→20:20)
[2022-07-30] MEDS: 0.9 % Sodium Chloride Flush 3 ML SYRINGE IVFLUSH ×3 (08:19→23:39)
--- NOTE | 2022-07-30 09:27 | P.PNIM_ITS ---
Subjective Subjective Date of Service: 07/30/22 Review of Systems Follow-up ascites Doing okay, appetite good, ambulating in the room Denies chest pain, shortness breath, nausea, vomiting, diarrhea Physical Exam Vital Signs: Vital Signs: Last Vital Signs Temp 97.4 F 07/30/22 07:38 Pulse 77 07/30/22 07:38 Resp 16 07/30/22 07:38 BP 110/60 07/30/22 07:38 Pulse Ox 97 07/30/22 07:38 O2 Del Method 07/30/22 07:38 BMI result Body Mass Index 26.0 Appearing in no acute distress lung sounds are clear to auscultation heart regular rate rhythm, clear S1, S2 positive bowel sounds, abdomen is soft, nontender, mildly distended neuro patient is alert x3, no focal deficits Objective Data Active Medications Acetaminophen (Acetaminophen 325 Mg Tablet) 650 mg PO Q6H PRN PRN Reason: Pain, Mild (Pain Scale 1-3) Last Admin: 07/29/22 12:07 Dose: 650 mg Documented By: PATTY Atorvastatin Calcium (Atorvastatin Calcium 20 Mg Tablet) 20 mg PO BEDTIME [facility] Last Admin: 07/29/22 20:53 Dose: 20 mg Documented By: ARTURO Dexamethasone (Dexamethasone 4 Mg Tablet) 4 mg PO BID [facility] Last Admin: 07/30/22 08:18 Dose: 4 mg Documented By: ANTONINO Dextrose (Dextrose 50 % 25 Gm/50 Ml Syringe) 25 gm IVPUSH Q15M PRN; Protocol PRN Reason: per Hypoglycemia Standing Ord. Enoxaparin Sodium (Enoxaparin Sodium 30 Mg/0.3 Ml Syringe) 30 mg SUBCUT Q24H [facility] Last Admin: 07/30/22 08:19 Dose: Not Given Documented By: ANTONINO Non-Admin Reason: paracentesis today Glucose (Glucose Gel 15 Gm Gel..Gram.) 15 gm PO Q15M PRN; Protocol PRN Reason: per Hypoglycemia Standing Ord. Ceftriaxone Sodium 2 gm/ (Sodium Chloride) 50 mls @ 100 mls/hr IV Q24H [facility] Last Infusion: 07/30/22 09:13 Dose: 0 mls/hr Documented By: ANTONINO Sodium Chloride (Ns) 1,000 mls @ 100 mls/hr IVCONT .Q10H [facility] Last Admin: 07/30/22 06:36 Dose: 100 mls/hr Documented By: ARTURO Insulin Human Lispro (Insulin Lispro 100 Unit/Ml 3 Ml Vial) 0 unit SUBCUT QIDACHS [facility]; Protocol Last Admin: 07/30/22 08:05 Dose: Not Given Documented By: ANTONINO Non-Admin Reason: No Insulin Coverage Levothyroxine Sodium (Levothyroxine Sodium 50 Mcg Tablet) 50 mcg PO DAILY@0600 [facility] Last Admin: 07/30/22 06:36 Dose: 50 mcg Documented By: ARTURO Lorazepam (Lorazepam 0.5 Mg Tablet) 0.5 mg PO BEDTIME PRN PRN Reason: anxiety Last Admin: 07/30/22 00:14 Dose: 0.5 mg Documented By: ARTUOR Melatonin (Melatonin 3 Mg Tablet) 6 mg PO BEDTIME PRN PRN Reason: Insomnia Last Admin: 07/30/22 01:37 Dose: 6 mg Documented By: ARTURO Multivitamins/Vitamin C (Multivitamin Tablet) 1 tab PO DAILY [facility] Last Admin: 07/30/22 08:18 Dose: 1 tab Documented By: ANTONINO Omeprazole (Omeprazole 20 Mg Capsule.Dr) 20 mg PO DAILY@0630 [facility] Last Admin: 07/30/22 06:36 Dose: 20 mg Documented By: ARTURO Ondansetron HCl (Ondansetron Hcl 4 Mg/2 Ml Vial) 4 mg IVPUSH Q8H PRN PRN Reason: Nausea and Vomiting Last Admin: 07/29/22 20:53 Dose: 4 mg Documented By: ARTURO Oxycodone HCl (Oxycodone Hcl Immed Release 5 Mg Tablet) 5 mg PO Q8H PRN PRN Reason: Pain, Moderate (Pain Scale 4-6 Last Admin: 07/30/22 01:37 Dose: 5 mg Documented By: ARTURO Pharmacy Consult (Consult Rx Perform Med Rec) 1 each MISCELLANE ONCE PRN PRN Reason: Consult order Sodium Chloride (0.9 % Sodium Chloride Flush 3 Ml Syringe) 3 ml IVFLUSH QSHIFT [facility] Last Admin: 07/30/22 08:19 Dose: 3 ml Documented By: ANTONINO Labs CBC & Chem 7: 07/29/22 07:45 07/29/22 07:45 Labs: Laboratory Results - last 24 hr 07/29/22 07/29/22 07/29/22 11:13 15:26 15:29 POC Glucose 176 H 209 H Stool Occult Blood NEGATIVE 07/29/22 07/30/22 19:03 07:41 POC Glucose 199 H 158 H Stool Occult Blood Microbiology Microbiology Results: Microbiology 07/28/22 02:28 Blood Culture - Preliminary Blood - Venous No growth after 48 hours. 07/28/22 02:28 Blood Culture - Preliminary Blood - Venous No growth after 48 hours. 07/28/22 04:46 Gram Stain - Final Paracentesis Fluid Anaerobic Culture - Preliminary Culture in progress. Body Fluid Culture - Preliminary Culture in progress. 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 Sepsis secondary to complicated cystitis. Sepsis resolved history of recurrent UTI.? Urine cultures mixed moises? Cannot rule out SBP in a patient with abdominal pain and ascites.? continue Rocephin. Plan for paracentesis today Hypotension.? Secondary to sepsis. Resolved Underlying malignancy with hypoalbuminemia is causing 3rd spacing which may also be contributing.? Improved with crystalloid and colloid resuscitation Acute kidney injury on chronic kidney disease 4 likely prerenal in the setting of intravascular volume depletion.? Monitor urine output and creatinine with resuscitation low albumin, leg edema nephrology consultation Chronic microcytic anemia Iron supplementation Low HH, follow CBC and transfuse as necessary Check stool occult Hypokalemia repleted Metastatic pancreatic cancer with peritoneal carcinomatosis consulted IR for paracentesis, sched for Saturday ? Last received chemotherapy 2 weeks ago. Vui-qycnzul-rkovjvibm diabetes mellitus Sliding scale, ADA diet Essential hypertension.? Low blood pressures Hold antihypertensive medications Hypothyroidism Continue levothyroxine DVT prophylaxis with Lovenox Attending Dr. Duran Full code Continue hospitalization for planned paracentesis tomorrow and close monitoring of blood pressure Quality Stroke Does the patient have a stroke diagnosis?: No VTE Prior VTE?: No VTE Risk Level:: Medical - moderate - high VTE Device Contraindication: Treatment Not Indicated VTE Drug Contraindication: N/A - Med Ordered
[2022-07-30 09:41] LABS: INTERNATIONAL NORM RATIO 1.1 (0.9-1.1); Prothrombin Time 12.5 SEC (10.0-13.1)
[2022-07-30 11:40] LABS: Glucose, Whole Blood 184 mg/dL (60-115)
[2022-07-30] MEDS: ondansetron HCL 4 MG/2 ML VIAL IVPUSH (11:47)
[2022-07-30] MEDS: Acetaminophen 325 MG TABLET 650 MG PO (11:48)
[2022-07-30] MEDS: Insulin Lispro 100 UNIT/ML 3 ML VIAL SUBCUT ×3 (12:08→20:18)
[2022-07-30 16:04] LABS: Glucose, Whole Blood 237 mg/dL (60-115)
--- NOTE | 2022-07-30 16:18 | MHC.CM.PN ---
EMR REVIEWED, PLAN FOR PARACENTESIS TODAY, NEPHROLOGY CONSULT PENDING, NO PLAN FOR D/C TODAY, CM WILL CONT TO FOLLOW D/C NEEDS.
--- NOTE | 2022-07-30 16:57 | PC.NURSE ---
RN called PACU to find out time for paracentesis,was told procedure will not be done today but tomorrow at 0900,DEDE Haines notified
[2022-07-30] MEDS: Lidocaine 4 % Patch ADH..PATCH 1 PATCH TRANSDERMA (17:14)
--- NOTE | 2022-07-30 18:38 | PM.CNNEP ---
History of Present Illness Reason for Consult Consult date: 07/30/22 Reason for consult: TONNY, non-oliguric Chief Complaint Chief complaint: Low blood pressure History of Present Illness Narrative: 71-year-old female with pertinent history of metastatic pancreatic cancer with peritoneal carcinomatosis, pow-noegpim-phudnahfz diabetes mellitus, essential hypertension, generalized anxiety disorder, hypothyroidism who presented to the ED per her supervisor [employer] for systolic blood pressure in 80s and worsening of renal function. ROS otherwise negative. Review of Systems Constitutional: Reports as per [facility] Past Medical History Medical History Acute sinusitis Cardiac arrhythmia Chest pain Diabetes Dysuria Dysuria Flank pain HTN (hypertension) Left knee pain Post-menopausal Recurrent UTI Rib pain on right side Sinusitis Urinary frequency Urinary tract infection Yeast infection of the vagina Family History Family History Father CVD (cardiovascular disease) Mother No problems noted. Surgical History Surgical History H/O: hysterectomy History of cardiac radiofrequency ablation Social History Social History Household Members: Spouse Housing: House Do you presently have visiting nurse or other home services: No Alcohol intake: current Alcohol intake frequency: holidays/special occasions only Alcohol type: beer and wine Patient Tobacco Use Status: Former Tobacco user Tobacco use type: Cigarette e-Cigarette/Vaping Use: Never Used Second Hand Smoke Exposure: Yes Advance Directives Date on File: 06/21/22 service: No Current occupational status: retired Current occupation: rt handed Cognitive needs: No Hearing needs: No Vision needs: Yes Meds Allergies Allergy/AdvReac Type Severity Reaction Status Date / Time amoxicillin [From Augmentin] Allergy Intermediate rash Verified 07/27/22 16:25 cefuroxime [From CEFTIN] Allergy Intermediate RASH Verified 07/27/22 16:25 clavulanic acid Allergy Intermediate rash Verified 07/27/22 16:25 [From Augmentin] doxycycline [DOXYCYCLINE] Allergy Intermediate HIVES Verified 07/27/22 16:25 Sulfa (Sulfonamide Allergy Intermediate unknown Verified 07/27/22 16:25 Antibiotics) Active Medications: Current Medications Acetaminophen (Acetaminophen 325 Mg Tablet) 650 mg PO Q6H PRN PRN Reason: Pain, Mild (Pain Scale 1-3) Last Admin: 07/30/22 11:48 Dose: 650 mg Atorvastatin Calcium (Atorvastatin Calcium 20 Mg Tablet) 20 mg PO BEDTIME [facility] Last Admin: 07/29/22 20:53 Dose: 20 mg Dexamethasone (Dexamethasone 4 Mg Tablet) 4 mg PO BID [facility] Last Admin: 07/30/22 08:18 Dose: 4 mg Dextrose (Dextrose 50 % 25 Gm/50 Ml Syringe) 25 gm IVPUSH Q15M PRN; Protocol PRN Reason: per Hypoglycemia Standing Ord. Enoxaparin Sodium (Enoxaparin Sodium 30 Mg/0.3 Ml Syringe) 30 mg SUBCUT Q24H [facility] Last Admin: 07/30/22 08:19 Dose: Not Given Glucose (Glucose Gel 15 Gm Gel..Gram.) 15 gm PO Q15M PRN; Protocol PRN Reason: per Hypoglycemia Standing Ord. Ceftriaxone Sodium 2 gm/ (Sodium Chloride) 50 mls @ 100 mls/hr IV Q24H [facility] Last Infusion: 07/30/22 09:13 Dose: Infused Insulin Human Lispro (Insulin Lispro 100 Unit/Ml 3 Ml Vial) 0 unit SUBCUT QIDACHS [facility]; Protocol Last Admin: 07/30/22 17:14 Dose: 4 unit Levothyroxine Sodium (Levothyroxine Sodium 50 Mcg Tablet) 50 mcg PO DAILY@0600 [facility] Last Admin: 07/30/22 06:36 Dose: 50 mcg Lidocaine (Lidocaine 4 % Patch Adh..Patch) 1 patch TRANSDERMA DAILY [facility]; Protocol Last Admin: 07/30/22 17:14 Dose: 1 patch Lorazepam (Lorazepam 0.5 Mg Tablet) 0.5 mg PO BEDTIME PRN PRN Reason: anxiety Last Admin: 07/30/22 00:14 Dose: 0.5 mg Melatonin (Melatonin 3 Mg Tablet) 6 mg PO BEDTIME PRN PRN Reason: Insomnia Last Admin: 07/30/22 01:37 Dose: 6 mg Multivitamins/Vitamin C (Multivitamin Tablet) 1 tab PO DAILY [facility] Last Admin: 07/30/22 08:18 Dose: 1 tab Omeprazole (Omeprazole 20 Mg Capsule.Dr) 20 mg PO DAILY@0630 [facility] Last Admin: 07/30/22 06:36 Dose: 20 mg Ondansetron HCl (Ondansetron Hcl 4 Mg/2 Ml Vial) 4 mg IVPUSH Q8H PRN PRN Reason: Nausea and Vomiting Last Admin: 07/30/22 11:47 Dose: 4 mg Oxycodone HCl (Oxycodone Hcl Immed Release 5 Mg Tablet) 5 mg PO Q4H PRN PRN Reason: Pain, Moderate (Pain Scale 4-6 Last Admin: 07/30/22 16:38 Dose: 5 mg Pharmacy Consult (Consult Rx Perform Med Rec) 1 each MISCELLANE ONCE PRN PRN Reason: Consult order Sodium Chloride (0.9 % Sodium Chloride Flush 3 Ml Syringe) 3 ml IVFLUSH QSHIFT [facility] Last Admin: 07/30/22 15:35 Dose: 3 ml Home Medications Medication Instructions Recorded Confirmed Last Taken Type latanoprost 0.005 % eye drops 1 drp ophthalmic (eye) BEDTIME 02/08/21 07/28/22 07/27/22 History fluticasone propionate 50 2 spray intranasal DAILY PRN 06/06/22 07/28/22 Unknown History mcg/actuation nasal Allergic Symptoms spray,suspension (Flonase Allergy Relief) acetaminophen 300 mg-codeine 30 mg 1 tab PO Q8H PRN Pain 07/28/22 07/28/22 Unknown History tablet levothyroxine 50 mcg tablet 50 mcg PO DAILY@0600 07/28/22 07/28/22 07/27/22 History pantoprazole 40 mg tablet,delayed 40 mg PO DAILY@0630 07/28/22 07/28/22 07/27/22 History release potassium chloride 10 mEq 10 meq PO DAILY 07/28/22 07/28/22 07/27/22 History tablet,extended release (K-Tab) Physical Exam Vital Signs: Last Vital Signs Temp 98.3 F 07/30/22 14:55 Pulse 84 07/30/22 14:55 Resp 16 07/30/22 14:55 BP 124/59 L 07/30/22 14:55 Pulse Ox 97 07/30/22 14:55 O2 Del Method 07/30/22 14:55 O2 Flow Rate 2.0 07/30/22 14:55 BMI result Body Mass Index 26.0 Const General: cooperative and comfortable Orientation/consciousness: patient oriented x3 HEENT Head: Yes normocephalic and Yes atraumatic Neck Neck: Yes no JVD Resp Auscultation: clear to auscultation bilaterally Cardio Jugular venous distension: no JVD Rate: regular rate Rhythm: regular rhythm Heart sounds: S1 normal heart sound present and S2 normal heart sound present GI Inspection: Yes distended Auscultation: normal bowel sounds Neuro General: patient oriented x3 Extrem General: Yes edema Results Lab Results Result Diagrams: 07/29/22 07:45 07/29/22 07:45 Lab results: Chemistry 07/28/22 07/29/22 06:49 07:45 Sodium 134 L 134 L Potassium 3.2 L 3.4 Carbon Dioxide 28 28 BUN 34 H 29 H Creatinine 2.55 H 1.91 H Calcium 8.3 L 8.2 L Hematology 07/27/22 07/28/22 07/29/22 16:33 06:49 07:45 WBC 17.5 H 12.3 H 13.2 H Hgb 9.4 L 7.4 L D 7.2 L Plt Count 154 L D 119 L 128 L Urinalysis 07/28/22 01:51 Urine Color Dark Yellow Urine Appearance Clear Urine pH 5.0 Ur Specific [place] 1.025 Urine Protein Trace Urine Glucose (UA) Negative Urine Ketones Trace Urine Blood Negative Urine Nitrite Negative Ur Leukocyte Esterase Small (1+) H Urine RBC 0-2 Urine WBC 21-50 H Ur Squamous Epith Cells 6-10 Hyaline Casts >20 Assessment and Plan (1) Acute renal failure: Status: Acute 71-year-old female with pertinent history of metastatic pancreatic cancer with peritoneal carcinomatosis, qbi-benqvbd-rbedlavpj diabetes mellitus, essential hypertension, generalized anxiety disorder, hypothyroidism who presented to the ED per her supervisor [employer] for systolic blood pressure in 80s and worsening of renal function. Problem List: TONNY, non-oliguric CKD 3 at BL. Hypotension Hyponatremia Hypokalemia Hypoalbuminemia sterile pyuria Anemia Plan: Acute kidney injury in setting of pre-existing CKD Patient presented with noted hypotension Suspect volume depletion further exacerbated with chronic use of metformin and acei. hold acei/ hold metformin, IV contrast Urine studies added to include U-Na, U-Cr Noted sterile pyuria on UA. MOnitor uop. low albumin with noted leg edema bp improving. Would provide 25% albumin q 6 hours x 2 to defend IV space and help with LE edema. Procedures Date of Service Date of Service: 07/30/22
[2022-07-30 20:02] LABS: Glucose, Whole Blood 164 mg/dL (60-115)
[2022-07-30] MEDS: Atorvastatin Calcium 20 MG TABLET PO (20:20)
--- NOTE | 2022-07-31 | ECG_ITS ---
Test Reason : TACHYCARDIA Blood Pressure : / mmHG Vent. Rate : 085 BPM Atrial Rate : 085 BPM P-R Int : 156 ms QRS Dur : 080 ms QT Int : 344 ms P-R-T Axes : 055 047 057 degrees QTc Int : 409 ms Sinus rhythm with Premature atrial complexes Otherwise normal ECG When compared with ECG of 28-JUL-2022 07:08, Premature atrial complexes are now Present Nonspecific T wave abnormality no longer evident in Anterior leads Referred By: Rosamaria Haines Electronically Signed By:HENRI CHEN MD
[2022-07-31] MEDS: ondansetron HCL 4 MG/2 ML VIAL IVPUSH (00:38)
[2022-07-31] MEDS: oxyCODONE HCl Immed Release 5 MG TABLET PO ×4 (00:39→22:04)
[2022-07-31] MEDS: Melatonin 3 MG TABLET 6 MG PO (00:39)
[2022-07-31 03:30] VITALS: BP 128/84; PULSE 90; RESP 18; TEMP 36.4; O2SAT 96
[2022-07-31] MEDS: Acetaminophen 325 MG TABLET 650 MG PO ×2 (03:58→16:10)
[2022-07-31] MEDS: Levothyroxine Sodium 50 MCG TABLET PO (05:16)
[2022-07-31] MEDS: Omeprazole 20 MG CAPSULE.DR PO (05:16)
[2022-07-31 05:42] LABS: Hematocrit 24.4 % (37.0-47.0); Hemoglobin 8.1 g/dl (12.0-16.0); Mean Corpuscular HGB Conc 33.2 g/dl (31.0-35.0); Mean Corpuscular Hemoglobin 25.8 pg (27.0-33.0); Mean Corpuscular Volume 77.7 fL (80.0-98.0); Mean Platelet Volume 9.8 fL (9.4-12.3); NRBC Pct Auto 0.4 /100WBC (0.0-0.2); Platelet Count 253 X10*3/uL (160-400); Red Blood Count 3.14 X10*6/uL (4.20-5.50); Red Cell Distribution Width 18.5 % (11.0-16.0); White Blood Count 23.1 X10*3/uL (4.8-10.8)
[2022-07-31 06:00] LABS: Anion Gap 15 (12-20); Blood Urea Nitrogen 19 mg/dL (9-16); Calcium 8.4 mg/dL (8.4-10.2); Carbon Dioxide 25 mmol/L (22-29); Chloride 99 mmol/L (96-108); Creatinine Clr Calc Pharmacy 36.1; Estimated Glomerular Filt Rate 41; Glucose Random 200 mg/dL (60-115); Sodium 135 mmol/L (135-145)
[2022-07-31] MEDS: Lidocaine 4 % Patch ADH..PATCH 1 PATCH TRANSDERMA (07:30)
[2022-07-31 07:31] LABS: Glucose, Whole Blood 188 mg/dL (60-115)
[2022-07-31] MEDS: dexAMETHasone 4 MG TABLET PO ×2 (07:31→16:10)
[2022-07-31] MEDS: Insulin Lispro 100 UNIT/ML 3 ML VIAL SUBCUT ×4 (07:31→20:42)
[2022-07-31] MEDS: Multivitamin TABLET 1 TAB PO (07:31)
[2022-07-31] MEDS: 0.9 % Sodium Chloride Flush 3 ML SYRINGE IVFLUSH ×2 (07:31→16:01)
[2022-07-31] MEDS: Enoxaparin Sodium 30 MG/0.3 ML SYRINGE SUBCUT (07:32)
[2022-07-31] MEDS: cefTRIAXone sodium 2 GM in 0.9 % Sodium Chloride 50 ML IV (07:32)
[2022-07-31 07:51] VITALS: BP 128/64; PULSE 81; RESP 17; TEMP 36.5; O2SAT 98
--- NOTE | 2022-07-31 10:06 | P.PNIM_ITS ---
Subjective Subjective Date of Service: 07/31/22 Review of Systems Follow-up ascites Doing okay, appetite good, ambulating in the room Denies chest pain, shortness breath, nausea, vomiting, diarrhea Physical Exam Vital Signs: Vital Signs: Last Vital Signs Temp 97.7 F 07/31/22 07:51 Pulse 81 07/31/22 07:51 Resp 17 07/31/22 07:51 BP 128/64 07/31/22 07:51 Pulse Ox 98 07/31/22 07:51 O2 Del Method 07/31/22 07:51 O2 Flow Rate 2.0 07/31/22 07:51 BMI result Body Mass Index 26.0 Appearing in no acute distress lung sounds are clear to auscultation heart regular rate rhythm, clear S1, S2 positive bowel sounds, abdomen is soft, nontender, mildly distended neuro patient is alert x3, no focal deficits Objective Data Active Medications Acetaminophen (Acetaminophen 325 Mg Tablet) 650 mg PO Q6H PRN PRN Reason: Pain, Mild (Pain Scale 1-3) Last Admin: 07/31/22 03:58 Dose: 650 mg Documented By: JUNITO Atorvastatin Calcium (Atorvastatin Calcium 20 Mg Tablet) 20 mg PO BEDTIME [facility] Last Admin: 07/30/22 20:20 Dose: 20 mg Documented By: GARDENIA Dexamethasone (Dexamethasone 4 Mg Tablet) 4 mg PO BID [facility] Last Admin: 07/31/22 07:31 Dose: 4 mg Documented By: GALINDO Dextrose (Dextrose 50 % 25 Gm/50 Ml Syringe) 25 gm IVPUSH Q15M PRN; Protocol PRN Reason: per Hypoglycemia Standing Ord. Enoxaparin Sodium (Enoxaparin Sodium 30 Mg/0.3 Ml Syringe) 30 mg SUBCUT Q24H [facility] Last Admin: 07/31/22 07:32 Dose: 30 mg Documented By: GALINDO Glucose (Glucose Gel 15 Gm Gel..Gram.) 15 gm PO Q15M PRN; Protocol PRN Reason: per Hypoglycemia Standing Ord. Ceftriaxone Sodium 2 gm/ (Sodium Chloride) 50 mls @ 100 mls/hr IV Q24H [facility] Last Infusion: 07/31/22 08:05 Dose: 0 mls/hr Documented By: GALINDO Insulin Human Lispro (Insulin Lispro 100 Unit/Ml 3 Ml Vial) 0 unit SUBCUT QIDACHS [facility]; Protocol Last Admin: 07/31/22 07:31 Dose: 2 unit Documented By: GALINDO Levothyroxine Sodium (Levothyroxine Sodium 50 Mcg Tablet) 50 mcg PO DAILY@0600 [facility] Last Admin: 07/31/22 05:16 Dose: 50 mcg Documented By: JUNITO Lidocaine (Lidocaine 4 % Patch Adh..Patch) 1 patch TRANSDERMA DAILY [facility]; Protocol Last Admin: 07/31/22 07:30 Dose: 1 patch Documented By: GALINDO Lorazepam (Lorazepam 0.5 Mg Tablet) 0.5 mg PO BEDTIME PRN PRN Reason: anxiety Last Admin: 07/30/22 00:14 Dose: 0.5 mg Documented By: ARTURO Melatonin (Melatonin 3 Mg Tablet) 6 mg PO BEDTIME PRN PRN Reason: Insomnia Last Admin: 07/31/22 00:39 Dose: 6 mg Documented By: GARDENIA Multivitamins/Vitamin C (Multivitamin Tablet) 1 tab PO DAILY [facility] Last Admin: 07/31/22 07:31 Dose: 1 tab Documented By: GALINDO Omeprazole (Omeprazole 20 Mg Capsule.Dr) 20 mg PO DAILY@0630 [facility] Last Admin: 07/31/22 05:16 Dose: 20 mg Documented By: JUNITO Ondansetron HCl (Ondansetron Hcl 4 Mg/2 Ml Vial) 4 mg IVPUSH Q8H PRN PRN Reason: Nausea and Vomiting Last Admin: 07/31/22 00:38 Dose: 4 mg Documented By: GARDENIA Oxycodone HCl (Oxycodone Hcl Immed Release 5 Mg Tablet) 5 mg PO Q4H PRN PRN Reason: Pain, Moderate (Pain Scale 4-6 Last Admin: 07/31/22 00:39 Dose: 5 mg Documented By: GARDENIA Pharmacy Consult (Consult Rx Perform Med Rec) 1 each MISCELLANE ONCE PRN PRN Reason: Consult order Sodium Chloride (0.9 % Sodium Chloride Flush 3 Ml Syringe) 3 ml IVFLUSH QSHIFT [facility] Last Admin: 07/31/22 07:31 Dose: 3 ml Documented By: GALINDO Labs CBC & Chem 7: 07/31/22 05:06 07/31/22 05:06 Labs: Laboratory Results - last 24 hr 07/30/22 07/30/22 07/30/22 11:22 14:57 19:55 MCV MCH MCHC RDW Plt Count MPV Absolute Nucleated RBC Nucleated RBC % (auto) Anion Gap Estim Creat Clear Calc Estimated GFR POC Glucose 184 H 237 H 164 H Random Glucose Calcium 07/31/22 07/31/22 07/31/22 05:06 05:06 07:21 MCV 77.7 L MCH 25.8 L MCHC 33.2 RDW 18.5 H Plt Count 253 D MPV 9.8 Absolute Nucleated RBC 0.090 H Nucleated RBC % (auto) 0.4 H Anion Gap 15 Estim Creat Clear Calc 36.1 Estimated GFR 41 POC Glucose 188 H Random Glucose 200 H Calcium 8.4 Microbiology Microbiology Results: Microbiology 07/28/22 04:46 Gram Stain - Final Paracentesis Fluid Anaerobic Culture - Preliminary Culture in progress. 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 Leg edema Secondary to low albumin and renal insufficiency Discussed with Nephrology, add albumin x2 doses Sepsis secondary to complicated cystitis. Sepsis resolved history of recurrent UTI.? Urine cultures mixed moises? No SBP, no fever stopped Rocephin. s/p paracentesis today, therapeutic Hypotension.? Secondary to sepsis and hypovolemia Underlying malignancy with hypoalbuminemia is causing 3rd spacing which may also be contributing.? Improved with crystalloid and colloid resuscitation Acute kidney injury on chronic kidney disease 4. Trending down likely prerenal in the setting of intravascular volume depletion.? Monitor urine output and creatinine with resuscitation low albumin, leg edema nephrology consultation Chronic microcytic anemia Iron supplementation Low HH, follow CBC and transfuse as necessary Check stool occult Hypokalemia repleted Metastatic pancreatic cancer with peritoneal carcinomatosis s/p paracentesis on decadron with chemo Last received chemotherapy 2 weeks ago. Tvp-etmexrd-cuasgfytl diabetes mellitus Sliding scale, ADA diet Essential hypertension.? Low blood pressures Hold antihypertensive medications Hypothyroidism Continue levothyroxine DVT prophylaxis with Lovenox Attending Dr. Duran Full code Disposition. Seen by physical therapy recommend home with PT once medically stable possibly when the leg edema decreases Continue hospitalization for planned paracentesis tomorrow and close monitoring of blood pressure Quality Stroke Does the patient have a stroke diagnosis?: No VTE Prior VTE?: No VTE Risk Level:: Medical - moderate - high VTE Device Contraindication: Treatment Not Indicated VTE Drug Contraindication: N/A - Med Ordered
[2022-07-31] MEDS: Lidocaine HCl 1 % MPF 5 ML VIAL SUBCUT (10:08)
[2022-07-31 12:00] VITALS: BP 97/57; PULSE 95; RESP 18; TEMP 36.8; O2SAT 100
[2022-07-31 12:01] LABS: Glucose, Whole Blood 218 mg/dL (60-115)
[2022-07-31 14:31] VITALS: BP 129/62; PULSE 144; O2SAT 98
[2022-07-31 14:53] LABS: Creatinine Urine 101.71 mg/dL; Sodium Urine Random < 20.0 mmol/L
[2022-07-31 15:20] LABS: pH Peritoneal Fluid 7.44
[2022-07-31 15:33] VITALS: BP 94/55; PULSE 89; RESP 16; TEMP 37.1; O2SAT 97
[2022-07-31 16:02] LABS: Glucose, Whole Blood 223 mg/dL (60-115)
[2022-07-31] MEDS: Albumin Human 25 % 100 ML IV ×2 (17:04→18:07)
[2022-07-31 18:53] VITALS: BP 114/56; PULSE 96; RESP 16; TEMP 36.9; O2SAT 97
[2022-07-31 19:43] LABS: Glucose, Whole Blood 286 mg/dL (60-115)
[2022-07-31] MEDS: Atorvastatin Calcium 20 MG TABLET PO (20:43)
[2022-08-01] VITALS (8 sets, daily range): BP systolic 95–112; BP diastolic 51–65; PULSE 60–97; RESP 15–17; TEMP 35.9–36.9; O2SAT 95–98
[2022-08-01] MEDS: 0.9 % Sodium Chloride Flush 3 ML SYRINGE IVFLUSH ×3 (00:05→15:47)
[2022-08-01] MEDS: Acetaminophen 325 MG TABLET 650 MG PO ×2 (00:15→13:36)
[2022-08-01] MEDS: Melatonin 3 MG TABLET 6 MG PO (00:16)
[2022-08-01] MEDS: Omeprazole 20 MG CAPSULE.DR PO (06:06)
[2022-08-01] MEDS: Levothyroxine Sodium 50 MCG TABLET PO (06:06)
[2022-08-01 07:38] LABS: Glucose, Whole Blood 169 mg/dL (60-115)
[2022-08-01] MEDS: Insulin Lispro 100 UNIT/ML 3 ML VIAL SUBCUT ×4 (07:57→20:38)
[2022-08-01] MEDS: oxyCODONE HCl Immed Release 5 MG TABLET PO ×3 (07:58→15:47)
[2022-08-01] MEDS: ondansetron HCL 4 MG/2 ML VIAL IVPUSH ×2 (07:58→16:20)
--- NOTE | 2022-08-01 10:26 | P.PNIM_ITS ---
Subjective Subjective Date of Service: 08/02/22 Interval History: patient has been seen today. Reports she has intermittent nausea but has been better with Zofran. Reports she has mild abdominal discomfort. Mentions she has been passing gas. Patient has been eating request and sees that she has been tolerating it okay. Denies any lightheadedness or dizziness. Denies any chest pain or palpitations. Physical Exam Vital Signs: Vital Signs: Last Vital Signs Temp 97.8 F 08/01/22 07:44 Pulse 87 08/01/22 07:44 Resp 16 08/01/22 07:44 BP 100/55 L 08/01/22 07:44 Pulse Ox 98 08/01/22 07:44 O2 Del Method 08/01/22 07:44 O2 Flow Rate 2 08/01/22 00:00 BMI result Body Mass Index 26.0 Gen: Appears be in no acute distress HEENT: NCAT, Moist mucosa. Pulmonary: Vesicular breath sounds, fair air entry CVS: Normal S1-S2 Abdomen: BS+, Soft, Nontender Extremities: Warm well perfused Neuro: Alert and awake. Objective Data Active Medications Acetaminophen (Acetaminophen 325 Mg Tablet) 650 mg PO Q6H PRN PRN Reason: Pain, Mild (Pain Scale 1-3) Last Admin: 08/01/22 00:15 Dose: 650 mg Documented By: SUSU Atorvastatin Calcium (Atorvastatin Calcium 20 Mg Tablet) 20 mg PO BEDTIME [facility] Last Admin: 07/31/22 20:43 Dose: 20 mg Documented By: KAROLINA Dexamethasone (Dexamethasone 4 Mg Tablet) 4 mg PO BIDWM NUPUR Last Admin: 07/31/22 16:10 Dose: 4 mg Documented By: KAROLINA Dextrose (Dextrose 50 % 25 Gm/50 Ml Syringe) 25 gm IVPUSH Q15M PRN; Protocol PRN Reason: per Hypoglycemia Standing Ord. Enoxaparin Sodium (Enoxaparin Sodium 30 Mg/0.3 Ml Syringe) 30 mg SUBCUT Q24H [facility] Last Admin: 07/31/22 07:32 Dose: 30 mg Documented By: GALINDO Glucose (Glucose Gel 15 Gm Gel..Gram.) 15 gm PO Q15M PRN; Protocol PRN Reason: per Hypoglycemia Standing Ord. Insulin Human Lispro (Insulin Lispro 100 Unit/Ml 3 Ml Vial) 0 unit SUBCUT QIDACHS [facility]; Protocol Last Admin: 08/01/22 07:57 Dose: 2 unit Documented By: PEE Levothyroxine Sodium (Levothyroxine Sodium 50 Mcg Tablet) 50 mcg PO DAILY@0600 [facility] Last Admin: 08/01/22 06:06 Dose: 50 mcg Documented By: SUSU Lidocaine (Lidocaine 4 % Patch Adh..Patch) 1 patch TRANSDERMA DAILY [facility]; Megan col Last Admin: 07/31/22 07:30 Dose: 1 patch Documented By: GALINDO Lorazepam (Lorazepam 0.5 Mg Tablet) 0.5 mg PO BEDTIME PRN PRN Reason: anxiety Last Admin: 07/30/22 00:14 Dose: 0.5 mg Documented By: ARTURO Melatonin (Melatonin 3 Mg Tablet) 6 mg PO BEDTIME PRN PRN Reason: Insomnia Last Admin: 08/01/22 00:16 Dose: 6 mg Documented By: SUSU Multivitamins/Vitamin C (Multivitamin Tablet) 1 tab PO DAILY [facility] Last Admin: 07/31/22 07:31 Dose: 1 tab Documented By: GALINDO Omeprazole (Omeprazole 20 Mg Capsule.Dr) 20 mg PO DAILY@0630 [facility] Last Admin: 08/01/22 06:06 Dose: 20 mg Documented By: SUSU Ondansetron HCl (Ondansetron Hcl 4 Mg/2 Ml Vial) 4 mg IVPUSH Q8H PRN PRN Reason: Nausea and Vomiting Last Admin: 08/01/22 07:58 Dose: 4 mg Documented By: PEE Oxycodone HCl (Oxycodone Hcl Immed Release 5 Mg Tablet) 5 mg PO Q4H PRN PRN Reason: Pain, Moderate (Pain Scale 4-6 Last Admin: 08/01/22 07:58 Dose: 5 mg Documented By: PEE Pharmacy Consult (Consult Rx Perform Med Rec) 1 each MISCELLANE ONCE PRN PRN Reason: Consult order Sodium Chloride (0.9 % Sodium Chloride Flush 3 Ml Syringe) 3 ml IVFLUSH QSHIFT [facility] Last Admin: 08/01/22 07:58 Dose: 3 ml Documented By: PEE Labs CBC & Chem 7: 08/02/22 09:34 08/02/22 05:07 Labs: Laboratory Results - last 24 hr 07/31/22 07/31/22 07/31/22 09:20 11:57 15:36 POC Glucose 218 H 223 H Ur Random Sodium Urine Creatinine Peritoneal pH 7.44 07/31/22 07/31/22 08/01/22 19:13 Unknown 07:16 POC Glucose 286 H 169 H Ur Random Sodium < 20.0 Urine Creatinine 101.71 Peritoneal pH Microbiology Microbiology Results: Microbiology 07/28/22 04:46 Gram Stain - Final Paracentesis Fluid Anaerobic Culture - Preliminary Culture in progress. Body Fluid Culture - Final Assessment and Plan (1) Acute renal failure: Status: Acute (2) Pancreatic adenocarcinoma: Status: Acute Plan 71-year-old female with a past medical history of hypertension, hyperlipidemia, diabetes, hypothyroidism, anemia, history of metastatic pancreatic cancer with peritoneal carcinomatosis, ascites, anxiety, depression from the nephrology office for presented to the hospital from the nephrology office for the worsening renal insufficiency. Patient's blood pressure was noted to be on the soft side in the ER; received IV fluids. Admitted to the hospital for further management Lower noted to have following conditions Hypotension: Likely presumed to be secondary to sepsis/ volume depletion/ hypoalbuminemia. Currently blood pressure on the soft side. Patient asymptomatic. Status post IV fluids and IV albumin. Received antibiotics for presumed UTI. Paracentesis negative for SBP. will continue to monitor blood pressures UTI: Patient is cultures resulted mixed moises. Discontinued IV antibiotics. Metastatic pancreatic cancer/peritoneal carcinomatosis/ ascites: Patient status post therapeutic paracentesis on 07/31/2022-removed 7.6 L. patient has been following with Dr. Beverly- has had chemotherapy about 2 weeks ago; and also on Decadron. Leukocytosis: Patient's WBC noted to be 23. Patient exhibits no signs of infection. Likely reactive. will continue to monitor TONNY on CKD: Likely prerenal. Patient's baseline creatinine of 1.1. Creatinine on presentation was 2.1. Improved to 1.2 after volume repletion. Seen by Nephrology- appreciated improved; recommended IV albumin every 6 hours for 2 days. Patient received 2 doses on 07/31/2022. Will continue IV albumin every 6 hours today. Chronic medical conditions: History of hypothyroidism: Levothyroxine History of hypertension: Home lisinopril, atenolol on hold secondary to soft blood pressures History of diabetes: Insulin sliding scale. Metformin on hold History of hyperlipidemia: Continue statin History of anxiety: Ativan p.r.n. History of glaucoma: Continue home eye drops DVT prophylaxis: Patient on Lovenox Code status: Full code Quality Stroke Does the patient have a stroke diagnosis?: No VTE Prior VTE?: No VTE Risk Level:: Medical - moderate - high VTE Device Contraindication: Treatment Not Indicated VTE Drug Contraindication: N/A - Med Ordered
[2022-08-01] MEDS: dexAMETHasone 4 MG TABLET PO ×2 (10:51→15:47)
[2022-08-01] MEDS: Enoxaparin Sodium 30 MG/0.3 ML SYRINGE SUBCUT (10:51)
[2022-08-01] MEDS: Multivitamin TABLET 1 TAB PO (10:51)
[2022-08-01] MEDS: Lidocaine 4 % Patch ADH..PATCH 1 PATCH TRANSDERMA (10:52)
[2022-08-01 11:13] LABS: Glucose, Whole Blood 159 mg/dL (60-115)
[2022-08-01] MEDS: Albumin Human 25 % 100 ML IV ×3 (11:21→23:47)
--- NOTE | 2022-08-01 13:12 | PM.PNNEP ---
Subjective Subjective Date of Service: 08/01/22 Interval history: Chart Reviewed. Events noted. Physical Exam Vital Signs: Vital Signs: Last Vital Signs Temp 97.6 F 08/01/22 11:14 Pulse 87 08/01/22 11:14 Resp 16 08/01/22 11:14 BP 101/57 L 08/01/22 11:14 Pulse Ox 98 08/01/22 11:14 O2 Del Method 08/01/22 11:14 O2 Flow Rate 2 08/01/22 00:00 BMI result Body Mass Index 26.0 Const: General: cooperative, comfortable and no acute distress Orientation/consciousness: patient oriented x3 HEENT: Head: Yes normal to inspection, Yes normocephalic and Yes atraumatic Neck: Lymphatic: no lymphadenopathy noted Resp: Auscultation: clear to auscultation bilaterally Cardio: Jugular venous distension: no JVD Rate: regular rate Rhythm: regular rhythm Heart sounds: S1 normal heart sound present and S2 normal heart sound present GI: Auscultation: normal bowel sounds Neuro: General: patient oriented x3 and moves all extremities Extrem: General: Yes no clubbing, cyanosis or edema Objective Data Labs CBC & Chem 7: 07/31/22 05:06 07/31/22 05:06 Labs: Laboratory Results - last 24 hr 07/31/22 07/31/22 07/31/22 09:20 15:36 19:13 POC Glucose 223 H 286 H Ur Random Sodium Urine Creatinine Peritoneal pH 7.44 07/31/22 08/01/22 08/01/22 Unknown 07:16 11:09 POC Glucose 169 H 159 H Ur Random Sodium < 20.0 Urine Creatinine 101.71 Peritoneal pH Microbiology Microbiology Results: Microbiology 07/28/22 04:46 Paracentesis Fluid Gram Stain - Final 07/28/22 04:46 Paracentesis Fluid Anaerobic Culture - Preliminary Culture in progress. 07/28/22 04:46 Paracentesis Fluid Body Fluid Culture - Final 07/28/22 02:28 Blood - Venous Blood Culture - Preliminary No growth after 48 hours. 07/28/22 02:28 Blood - Venous Blood Culture - Preliminary No growth after 48 hours. 07/28/22 Unknown Urine clean catch - Urine schulte top Urine Culture - Final Procedures Date of Service Date of Service: 08/01/22 Assessment & Plan Assessment and plan (1) Acute renal failure: Status: Acute Plan 71-year-old female with pertinent history of metastatic pancreatic cancer with peritoneal carcinomatosis, [id number] diabetes mellitus, essential hypertension, generalized anxiety disorder, hypothyroidism who presented to the ED per her communications professor for systolic blood pressure in 80s and worsening of renal function. Problem List: TONNY, non-oliguric CKD 3 at BL. Hypotension Hyponatremia Hypokalemia Hypoalbuminemia sterile pyuria Anemia Plan: Acute kidney injury in setting of pre-existing CKD Patient presented with noted hypotension Suspect volume depletion further exacerbated with chronic use of metformin and acei. Noted sterile pyuria on UA. MOnitor uop. low albumin with noted leg edema bp improving. S-Cr improved with albumin admin. Will need to supplement diet with higher protein intake. Can consider boost/ensure daily. S-Cr appears to be at prior BL. Nephrology will sign off. Call with questions. Time Spent With Patient Time: Total time spent is greater than 50% in coordination of care (as documented) at patient's floor/unit and/or counseling patient: Progress Note: Quality Stroke Does the patient have a stroke diagnosis?: No
[2022-08-01 15:58] LABS: Glucose, Whole Blood 192 mg/dL (60-115)
[2022-08-01 20:10] LABS: Glucose, Whole Blood 178 mg/dL (60-115)
[2022-08-01] MEDS: Atorvastatin Calcium 20 MG TABLET PO (20:38)
[2022-08-01 23:12] LABS: CDiff Gene PCR NEGATIVE (Negative)
--- NOTE | 2022-08-01 23:50 | PM.EVENT ---
Event Note Date of Service: 08/01/22 Event Note: pt with diarrhea, cdiff ruled out, requesting imodium
[2022-08-02] VITALS (9 sets, daily range): BP systolic 92–118; BP diastolic 55–63; PULSE 68–86; RESP 14–20; TEMP 36.2–37.2; O2SAT 95–97
[2022-08-02] MEDS: oxyCODONE HCl Immed Release 5 MG TABLET PO ×3 (00:41→20:02)
[2022-08-02] MEDS: Melatonin 3 MG TABLET 6 MG PO (00:41)
[2022-08-02] MEDS: 0.9 % Sodium Chloride Flush 3 ML SYRINGE IVFLUSH ×3 (00:41→16:37)
[2022-08-02] MEDS: Loperamide HCl 2 MG CAPSULE PO (00:42)
[2022-08-02] MEDS: Levothyroxine Sodium 50 MCG TABLET PO (05:36)
[2022-08-02] MEDS: Omeprazole 20 MG CAPSULE.DR PO (05:36)
[2022-08-02] MEDS: Albumin Human 25 % 100 ML IV (05:36)
[2022-08-02 05:48] LABS: Mean Corpuscular HGB Conc 31.7 g/dl (31.0-35.0); Mean Corpuscular Hemoglobin 25.4 pg (27.0-33.0); Mean Corpuscular Volume 80.1 fL (80.0-98.0); Mean Platelet Volume 9.5 fL (9.4-12.3); NRBC Pct Auto 0.4 /100WBC (0.0-0.2); Platelet Count 310 X10*3/uL (160-400); Red Blood Count 2.56 X10*6/uL (4.20-5.50); White Blood Count 14.4 X10*3/uL (4.8-10.8)
[2022-08-02 05:57] LABS: Hematocrit 20.5 % (37.0-47.0)
[2022-08-02 05:58] LABS: Hemoglobin 6.5 g/dl (12.0-16.0)
[2022-08-02 06:06] LABS: Anion Gap 15 (12-20); Blood Urea Nitrogen 12 mg/dL (9-16); Calcium 8.7 mg/dL (8.4-10.2); Carbon Dioxide 27 mmol/L (22-29); Chloride 103 mmol/L (96-108); Creatinine Clr Calc Pharmacy 57.5; Estimated Glomerular Filt Rate > 60; Glucose Random 197 mg/dL (60-115); Sodium 140 mmol/L (135-145)
[2022-08-02 06:09] LABS: Band Neutrophils Percent 1 % (3-5); Lymphocytes Absolute Manual 1.4 X10*3/uL (1.2-4.9); Lymphocytes Percent Manual 10 % (20-40); Monocytes Absolute Manual 0.1 X10*3/uL (0.1-1.2); Monocytes Percent Manual 1 % (2-11); Neutrophils Absolute Manual 12.8 X10*3/uL (2.0-8.3); Neutrophils Percent Manual 88 % (45-73)
[2022-08-02 06:12] LABS: Basophilic Stippling 1+ (0-2) /OIF; Hypersegmented Neutrophils PRESENT; Hypochromasia 1+ (5-14) /OIF; Microcytosis 1+ (5-14) /OIF; Ovalocytes 1+ (5-14) /OIF; Platelet Estimate NORMAL (NORMAL); Platelet Morphology Comment NORMAL; Polychromasia 1+ (0-2) /OIF; RBC Morphology NOTED; Tear Drop Cells 1+ (0-2) /OIF
--- NOTE | 2022-08-02 06:45 | PM.EVENT ---
Event Note Date of Service: 08/02/22 Event Note: pt hgb <7. will order 1 unit of pRBC. no acute or active bleed
[2022-08-02 07:23] LABS: Glucose, Whole Blood 168 mg/dL (60-115)
--- NOTE | 2022-08-02 08:17 | P.CDIC_ITS ---
CDI Concurrent Query Documentation Clarification: PHYSICIAN'S DOCUMENTATION REQUEST Date of Query: 08/02/22 0818 Patient Name: Izabela Pitt Admit Date: 07/28/22 Dear Doctor, A review of the medical record indicates additional documentation may be needed. Please review below and update the documentation accordingly. Clinical Indicators: Risk Factors/Clinical Indicators/Treatments POC glucose 07/30 - 237 H 218 H 286 H Insulin PN: Non-insulin dependent Diabetes Mellitus. Please clarify the following regarding Diabetes Mellitus (DM): Type/Etiology * Hyperglycemia * Other complication ? please specify * Unable to determine Use of terms such as suspected, likely, concern for, or probable (associated with a specific diagnosis that is being evaluated, monitored, or treated as if it exists) are acceptable and can be coded in the inpatient setting, when documented at the time of discharge. Thank you, Shirley Epps [facility], CDIS Extension: [phone] Please use your independent medical judgment in providing your response. THIS QUERY IS PART OF THE PERMANENT MEDICAL RECORD Provider Response: Other Other Diagnosis: Hyperglycemia
[2022-08-02] MEDS: Insulin Lispro 100 UNIT/ML 3 ML VIAL SUBCUT ×4 (08:32→20:04)
[2022-08-02] MEDS: dexAMETHasone 4 MG TABLET PO ×2 (08:33→16:36)
[2022-08-02] MEDS: Multivitamin TABLET 1 TAB PO (08:33)
[2022-08-02] MEDS: Lidocaine 4 % Patch ADH..PATCH 1 PATCH TRANSDERMA (08:33)
[2022-08-02] MEDS: Enoxaparin Sodium 30 MG/0.3 ML SYRINGE SUBCUT (08:33)
--- NOTE | 2022-08-02 09:27 | P.CDIC_ITS ---
CDI Concurrent Query Documentation Clarification: PHYSICIAN'S DOCUMENTATION REQUEST Date of Query: 08/02/22 0928 Patient Name: Izabela Pitt Admit Date: 07/28/22 Dear Doctor, A review of the medical record indicates additional documentation may be needed. Please review below and update the documentation accordingly. Clinical Indicators Risk Factors/Clinical Indicators/Treatments PN 07/28 & 07/29 - TONNY on CKD 4 Nephrology note 08/01 - TONNY on CKD 3 at bl TONNY in the setting of pre-existing CKD. Based on the above, could you clarify in the Progress Notes the appropriate diagnosis, if significant, that supports the above abnormalities and additional evaluation, monitoring, and/or treatment rendered: l Consistency and clarity of specifics documented: * TONNY on CKD Stage 3 * TONNY on CKD Stage 4 * Other (please specify) * Unable to determine Use of terms such as suspected, likely, concern for, or probable (associated with a specific diagnosis that is being evaluated, monitored, or treated as if it exists) are acceptable and can be coded in the inpatient setting, when documented at the time of discharge. Thank you, Shirley Epps [facility], [facility] Extension: [phone] Please use your independent medical judgment in providing your response. THIS QUERY IS PART OF THE PERMANENT MEDICAL RECORD Provider Response: CKD Stage 3 Other Diagnosis: TONNY on CKD 3
--- NOTE | 2022-08-02 09:43 | P.PNIM_ITS ---
Subjective Subjective Date of Service: 08/02/22 Interval History: Pt is seen today. denies any nausea/vomiting or diarrhea. Denies Blood in stool. Denies abd pain. Physical Exam Vital Signs: Vital Signs: Last Vital Signs Temp 97.3 F 08/02/22 07:13 Pulse 83 08/02/22 07:13 Resp 18 08/02/22 07:13 BP 110/61 08/02/22 07:13 Pulse Ox 95 08/02/22 07:13 O2 Del Method 08/02/22 07:13 O2 Flow Rate 2 08/02/22 03:30 BMI result Body Mass Index 26.0 Gen: Appears be in no acute distress HEENT: NCAT, Moist mucosa. Pulmonary: Vesicular breath sounds, fair air entry CVS: Normal S1-S2 Abdomen: BS+, Soft, Nontender Extremities: Warm well perfused Neuro: Alert and awake. Objective Data Active Medications Acetaminophen (Acetaminophen 325 Mg Tablet) 650 mg PO Q6H PRN PRN Reason: Pain, Mild (Pain Scale 1-3) Last Admin: 08/01/22 13:36 Dose: 650 mg Documented By: ANTONINO Atorvastatin Calcium (Atorvastatin Calcium 20 Mg Tablet) 20 mg PO BEDTIME [facility] Last Admin: 08/01/22 20:38 Dose: 20 mg Documented By: MANASA Dexamethasone (Dexamethasone 4 Mg Tablet) 4 mg PO BIDWM [facility] Last Admin: 08/02/22 08:33 Dose: 4 mg Documented By: PATTY Dextrose (Dextrose 50 % 25 Gm/50 Ml Syringe) 25 gm IVPUSH Q15M PRN; Protocol PRN Reason: per Hypoglycemia Standing Ord. Enoxaparin Sodium (Enoxaparin Sodium 30 Mg/0.3 Ml Syringe) 30 mg SUBCUT Q24H [facility] Last Admin: 08/02/22 08:33 Dose: 30 mg Documented By: PATTY Glucose (Glucose Gel 15 Gm Gel..Gram.) 15 gm PO Q15M PRN; Protocol PRN Reason: per Hypoglycemia Standing Ord. Insulin Human Lispro (Insulin Lispro 100 Unit/Ml 3 Ml Vial) 0 unit SUBCUT QIDACHS [facility]; Protocol Last Admin: 08/02/22 08:32 Dose: 2 unit Documented By: PATTY Levothyroxine Sodium (Levothyroxine Sodium 50 Mcg Tablet) 50 mcg PO DAILY@0600 [facility] Last Admin: 08/02/22 05:36 Dose: 50 mcg Documented By: MANASA Lidocaine (Lidocaine 4 % Patch Adh..Patch) 1 patch TRANSDERMA DAILY [facility]; Protocol Last Admin: 08/02/22 08:33 Dose: 1 patch Documented By: PATTY Loperamide HCl (Loperamide Hcl 2 Mg Capsule) 2 mg PO Q6H PRN PRN Reason: Diarrhea Last Admin: 08/02/22 00:42 Dose: 2 mg Documented By: MANASA Lorazepam (Lorazepam 0.5 Mg Tablet) 0.5 mg PO BEDTIME PRN PRN Reason: anxiety Last Admin: 07/30/22 00:14 Dose: 0.5 mg Documented By: ARTURO Melatonin (Melatonin 3 Mg Tablet) 6 mg PO BEDTIME PRN PRN Reason: Insomnia Last Admin: 08/02/22 00:41 Dose: 6 mg Documented By: MANASA Multivitamins/Vitamin C (Multivitamin Tablet) 1 tab PO DAILY [facility] Last Admin: 08/02/22 08:33 Dose: 1 tab Documented By: PATTY Omeprazole (Omeprazole 20 Mg Capsule.Dr) 20 mg PO DAILY@0630 [facility] Last Admin: 08/02/22 05:36 Dose: 20 mg Documented By: MANASA Ondansetron HCl (Ondansetron Hcl 4 Mg/2 Ml Vial) 4 mg IVPUSH Q8H PRN PRN Reason: Nausea and Vomiting Last Admin: 08/01/22 16:20 Dose: 4 mg Documented By: PEE Oxycodone HCl (Oxycodone Hcl Immed Release 5 Mg Tablet) 5 mg PO Q4H PRN PRN Reason: Pain, Moderate (Pain Scale 4-6 Last Admin: 08/02/22 00:41 Dose: 5 mg Documented By: MANASA Pharmacy Consult (Consult Rx Perform Med Rec) 1 each MISCELLANE ONCE PRN PRN Reason: Consult order Sodium Chloride (0.9 % Sodium Chloride Flush 3 Ml Syringe) 3 ml IVFLUSH QSHIFT [facility] Last Admin: 08/02/22 08:33 Dose: 3 ml Documented By: PATTY Labs CBC & Chem 7: 08/02/22 09:34 08/02/22 05:07 Labs: Laboratory Results - last 24 hr 10/19/22 10/19/22 10/19/22 11:09 15:16 19:08 MCV MCH MCHC RDW Plt Count MPV Immature Gran % (Auto) Neut % (Auto) Lymph % (Auto) [place] % (Auto) Eos % (Auto) Baso % (Auto) Lymph # (Auto) [place] # (Auto) Eos # (Auto) Baso # (Auto) Abs Immat Gran (auto) Absolute Neuts (auto) Absolute Nucleated RBC Nucleated RBC % (auto) Neutrophils % (Manual) Band Neutrophils % Lymphocytes % (Manual) Monocytes % (Manual) Abs Neuts (Manual) Lymphocytes # (Manual) Monocytes # (Manual) Hypersegmented Neuts Platelet Estimate Plt Morphology Comment RBC Morphology Polychromasia Hypochromasia Basophilic Stippling Microcytosis Tear Drop Cells Ovalocytes Smear Path Review Anion Gap Estim Creat Clear Calc Estimated GFR POC Glucose 159 H 192 H 178 H Random Glucose Calcium C. difficile Tox B Gene Blood Type Antibody Screen Crossmatch 08/01/22 08/02/22 08/02/22 22:17 05:07 05:07 MCV 80.1 MCH 25.4 L MCHC 31.7 RDW 19.0 H Plt Count 310 MPV 9.5 Immature Gran % (Auto) Cancelled Neut % (Auto) Cancelled Lymph % (Auto) Cancelled [place] % (Auto) Cancelled Eos % (Auto) Cancelled Baso % (Auto) Cancelled Lymph # (Auto) Cancelled [place] # (Auto) Cancelled Eos # (Auto) Cancelled Baso # (Auto) Cancelled Abs Immat Gran (auto) Cancelled Absolute Neuts (auto) Cancelled Absolute Nucleated RBC 0.060 H Nucleated RBC % (auto) 0.4 H Neutrophils % (Manual) 88 H Band Neutrophils % 1 L Lymphocytes % (Manual) 10 L Monocytes % (Manual) 1 L Abs Neuts (Manual) 12.8 H Lymphocytes # (Manual) 1.4 Monocytes # (Manual) 0.1 Hypersegmented Neuts PRESENT Platelet Estimate NORMAL Plt Morphology Comment NORMAL RBC Morphology NOTED Polychromasia 1+ (0-2) Hypochromasia 1+ (5-14) Basophilic Stippling 1+ (0-2) Microcytosis 1+ (5-14) Tear Drop Cells 1+ (0-2) Ovalocytes 1+ (5-14) Smear Path Review SEE NOTE Anion Gap 15 Estim Creat Clear Calc 57.5 Estimated GFR > 60 POC Glucose Random Glucose 197 H Calcium 8.7 C. difficile Tox B Gene NEGATIVE Blood Type Antibody Screen Crossmatch 08/02/22 08/02/22 07:01 07:17 MCV MCH MCHC RDW Plt Count MPV Immature Gran % (Auto) Neut % (Auto) Lymph % (Auto) [place] % (Auto) Eos % (Auto) Baso % (Auto) Lymph # (Auto) [place] # (Auto) Eos # (Auto) Baso # (Auto) Abs Immat Gran (auto) Absolute Neuts (auto) Absolute Nucleated RBC Nucleated RBC % (auto) Neutrophils % (Manual) Band Neutrophils % Lymphocytes % (Manual) Monocytes % (Manual) Abs Neuts (Manual) Lymphocytes # (Manual) Monocytes # (Manual) Hypersegmented Neuts Platelet Estimate Plt Morphology Comment RBC Morphology Polychromasia Hypochromasia Basophilic Stippling Microcytosis Tear Drop Cells Ovalocytes Smear Path Review Anion Gap Estim Creat Clear Calc Estimated GFR POC Glucose 168 H Random Glucose Calcium C. difficile Tox B Gene Blood Type O Negative Antibody Screen NEGATIVE Crossmatch See Detail Microbiology Microbiology Results: Microbiology 07/28/22 02:28 Blood Culture - Final Blood - Venous No growth after 5 days. 07/28/22 02:28 Blood Culture - Final Blood - Venous No growth after 5 days. 07/28/22 04:46 Gram Stain - Final Paracentesis Fluid Anaerobic Culture - Preliminary Culture in progress. Body Fluid Culture - Final Assessment and Plan (1) Acute renal failure: Status: Acute (2) Anemia: Status: Acute Plan 71-year-old female with a past medical history of hypertension, hyperlipidemia, diabetes, hypothyroidism, anemia, history of metastatic pancreatic cancer with peritoneal carcinomatosis, ascites, anxiety, depression from the nephrology office for presented to the hospital from the nephrology office for the worsening renal insufficiency.? Patient's blood pressure was noted to be on the soft side in the ER; received IV fluids.? Admitted to the hospital for further management Lower noted to have following conditions Anemia: patient's baseline hemoglobin is around 8. Today hemoglobin noted to be 6.5. Patient denies any signs of bleeding. Patient being transfused 1 unit of PRBC- patient is O negative; but due to national shortage of O-negative blood; Dr. kwan from pathology recommended O- positive blood; patient agreed. Hypotension:? Likely presumed to? be secondary to sepsis/ volume depletion/ hypoalbuminemia. Currently blood pressure on the soft side.? Patient asymptomatic.? Status post IV fluids and IV albumin.? Received antibiotics for presumed UTI.? Paracentesis negative for SBP. Blood pressures stable. UTI: Patient is cultures resulted mixed moises.? Discontinued IV antibiotics. Metastatic pancreatic cancer/peritoneal carcinomatosis/ ascites:? Patient status post therapeutic paracentesis on 07/31/2022-removed 7.6 L. patient has been following with Dr. Beverly- has had chemotherapy about 2 weeks ago; and also on Decadron.? Leukocytosis: Patient's? WBC noted to be 23.? Patient exhibits no signs of infec tion.? Likely reactive.? improving TONNY on CKD: Likely prerenal. Patient's baseline creatinine of 1.1.? Creatinine on presentation was 2.1.? Improved to 1.2 after volume repletion.? Seen by Nephrology- appreciated inputs. Given IV albumin per Nephrology recs. Chronic medical conditions: History of hypothyroidism:? Levothyroxine History of hypertension:??Home lisinopril, atenolol on hold? secondary to soft blood pressures History of NIDDM:? Metformin on hold. Mild hyperglycemia noted. Will monitor. c/w Insulin sliding scale.? History of hyperlipidemia: Continue statin History of anxiety: Ativan p.r.n. History of glaucoma: Continue home eye drops DVT prophylaxis:? Patient on Lovenox Code status:? Full code Quality Stroke Does the patient have a stroke diagnosis?: No VTE Prior VTE?: No VTE Risk Level:: Medical - moderate - high VTE Device Contraindication: Treatment Not Indicated VTE Drug Contraindication: N/A - Med Ordered
[2022-08-02 10:27] LABS: OBS Int Ctl Valid YES; OBS1 NEGATIVE (NEGATIVE)
[2022-08-02 10:29] LABS: Hematocrit 21.3 % (37.0-47.0); Mean Corpuscular HGB Conc 31.9 g/dl (31.0-35.0); Mean Corpuscular Hemoglobin 25.6 pg (27.0-33.0); Mean Corpuscular Volume 80.1 fL (80.0-98.0); Mean Platelet Volume 9.6 fL (9.4-12.3); NRBC Pct Auto 0.5 /100WBC (0.0-0.2); Platelet Count 339 X10*3/uL (160-400); Red Blood Count 2.66 X10*6/uL (4.20-5.50); Red Cell Distribution Width 19.7 % (11.0-16.0); White Blood Count 17.3 X10*3/uL (4.8-10.8)
[2022-08-02 10:40] LABS: Hemoglobin 6.8 g/dl (12.0-16.0)
[2022-08-02 11:13] LABS: Band Neutrophils Percent 2 % (3-5); Lymphocytes Absolute Manual 2.2 X10*3/uL (1.2-4.9); Lymphocytes Percent Manual 13 % (20-40); Metamyelocytes Absolute 0.2 X10*3/uL; Metamyelocytes Percent 1 %; Monocytes Percent Manual 6 % (2-11); Neutrophils Absolute Manual 13.8 X10*3/uL (2.0-8.3); Neutrophils Percent Manual 78 % (45-73)
[2022-08-02 11:15] LABS: Basophilic Stippling 1+ (0-2) /OIF; Hypochromasia 1+ (5-14) /OIF; Microcytosis 1+ (5-14) /OIF; Platelet Estimate NORMAL (NORMAL); Platelet Morphology Comment NORMAL; RBC Morphology NOTED
[2022-08-02 11:16] LABS: Polychromasia 1+ (0-2) /OIF; Tear Drop Cells 1+ (0-2) /OIF
[2022-08-02 12:09] LABS: Glucose, Whole Blood 203 mg/dL (60-115)
[2022-08-02 15:49] LABS: Glucose, Whole Blood 188 mg/dL (60-115)
[2022-08-02] MEDS: LORazepam 0.5 MG TABLET PO (16:36)
[2022-08-02] MEDS: ondansetron HCL 4 MG/2 ML VIAL IVPUSH (16:36)
[2022-08-02] MEDS: Acetaminophen 325 MG TABLET 650 MG PO (16:36)
[2022-08-02 17:02] LABS: MANUAL DIFF FLAG NO
[2022-08-02 17:08] LABS: Basophils Percent Auto 0.2 % (0-2); Hematocrit 24.8 % (37.0-47.0); Hemoglobin 8.1 g/dl (12.0-16.0); Imm Gran Abs Auto 1.03 X10*3/uL (0.00-0.03); Imm Gran Pct Auto 5.9 % (0.0-0.4); Lymphocytes Absolute Auto 1.6 X10*3/uL (1.2-4.9); Lymphocytes Percent Auto 9.3 % (20-40); Mean Corpuscular HGB Conc 32.7 g/dl (31.0-35.0); Mean Corpuscular Volume 79.7 fL (80.0-98.0); Mean Platelet Volume 9.3 fL (9.4-12.3); Monocytes Absolute Auto 1.5 X10*3/uL (0.1-1.2); Monocytes Percent Auto 8.4 % (2-11); NRBC Pct Auto 0.3 /100WBC (0.0-0.2); Neutrophils Absolute Auto 13.2 x10*3/uL (2.0-8.3); Neutrophils Percent Auto 76.2 % (45-73); Platelet Count 312 X10*3/uL (160-400); Red Blood Count 3.11 X10*6/uL (4.20-5.50); Red Cell Distribution Width 18.8 % (11.0-16.0); SCAN SMEAR FLAG 1; White Blood Count 17.4 X10*3/uL (4.8-10.8)
[2022-08-02 19:57] LABS: Glucose, Whole Blood 184 mg/dL (60-115)
[2022-08-02] MEDS: Atorvastatin Calcium 20 MG TABLET PO (20:04)
[2022-08-03] VITALS (7 sets, daily range): BP systolic 113–123; BP diastolic 55–66; PULSE 62–78; RESP 16–20; TEMP 36.1–37.3; O2SAT 96–98
[2022-08-03] MEDS: 0.9 % Sodium Chloride Flush 3 ML SYRINGE IVFLUSH ×3 (00:06→17:00)
[2022-08-03] MEDS: oxyCODONE HCl Immed Release 5 MG TABLET PO ×4 (00:07→19:57)
[2022-08-03] MEDS: Melatonin 3 MG TABLET 6 MG PO (00:08)
[2022-08-03] MEDS: Levothyroxine Sodium 50 MCG TABLET PO (05:15)
[2022-08-03] MEDS: Omeprazole 20 MG CAPSULE.DR PO (05:24)
[2022-08-03 05:50] LABS: Hematocrit 25.8 % (37.0-47.0); Hemoglobin 8.3 g/dl (12.0-16.0); Mean Corpuscular HGB Conc 32.2 g/dl (31.0-35.0); Mean Corpuscular Hemoglobin 26.2 pg (27.0-33.0); Mean Corpuscular Volume 81.4 fL (80.0-98.0); Mean Platelet Volume 9.7 fL (9.4-12.3); NRBC Pct Auto 0.2 /100WBC (0.0-0.2); Platelet Count 357 X10*3/uL (160-400); Red Blood Count 3.17 X10*6/uL (4.20-5.50); Red Cell Distribution Width 19.3 % (11.0-16.0); White Blood Count 16.4 X10*3/uL (4.8-10.8)
[2022-08-03 06:10] LABS: Band Neutrophils Percent 0 % (3-5); Hypersegmented Neutrophils PRESENT; Lymphocytes Absolute Manual 1.1 X10*3/uL (1.2-4.9); Lymphocytes Percent Manual 7 % (20-40); Metamyelocytes Absolute 0.2 X10*3/uL; Metamyelocytes Percent 1 %; Monocytes Absolute Manual 1.1 X10*3/uL (0.1-1.2); Monocytes Percent Manual 7 % (2-11); Neutrophils Absolute Manual 13.9 X10*3/uL (2.0-8.3); Neutrophils Percent Manual 85 % (45-73)
[2022-08-03 06:11] LABS: Microcytosis 1+ (5-14) /OIF; Ovalocytes 1+ (5-14) /OIF; Platelet Estimate NORMAL (NORMAL); RBC Morphology NOTED
[2022-08-03 06:12] LABS: Basophilic Stippling 1+ (0-2) /OIF; Polychromasia 1+ (0-2) /OIF
[2022-08-03 06:13] LABS: Anion Gap 13 (12-20); Blood Urea Nitrogen 14 mg/dL (9-16); Calcium 8.9 mg/dL (8.4-10.2); Carbon Dioxide 27 mmol/L (22-29); Chloride 102 mmol/L (96-108); Creatinine Clr Calc Pharmacy 61.4; Estimated Glomerular Filt Rate > 60; Glucose Random 212 mg/dL (60-115); Potassium 5.1 mmol/L (3.3-5.1); Sodium 137 mmol/L (135-145)
[2022-08-03 07:24] LABS: Glucose, Whole Blood 199 mg/dL (60-115)
[2022-08-03] MEDS: Multivitamin TABLET 1 TAB PO (08:16)
[2022-08-03] MEDS: Enoxaparin Sodium 30 MG/0.3 ML SYRINGE SUBCUT (08:16)
[2022-08-03] MEDS: dexAMETHasone 4 MG TABLET PO ×2 (08:16→16:56)
[2022-08-03] MEDS: Insulin Lispro 100 UNIT/ML 3 ML VIAL SUBCUT ×4 (08:17→20:33)
[2022-08-03] MEDS: Lidocaine 4 % Patch ADH..PATCH 1 PATCH TRANSDERMA (08:19)
[2022-08-03 09:34] LABS: Platelet Morphology Comment NORMAL
[2022-08-03 11:23] LABS: Glucose, Whole Blood 211 mg/dL (60-115)
[2022-08-03 11:23] LABS: Glucose, Whole Blood 212 mg/dL (60-115)
--- NOTE | 2022-08-03 13:38 | MHC.CM.PN ---
[facility] REVIEWED, PER HOSPITALIST PT REMAINS WEAK AND ANTIC SHE WILL REMAIN INPT TONIGHT AND D/C HOME W/NEW COMFORT PLUS [facility] FOR SN/HOME PT AND FAMILY FOR TRANSPORT
--- NOTE | 2022-08-03 14:59 | HO.PM.IMPN ---
Subjective Subjective Date of Service: 08/03/22 Interval History: the patient was seen and evaluated this morning Laying in bed, feels comfortable overall but complaining of pain in her abdomen Denies any fever, chills or shortness of breath No reported other overnight events. Systemic review: No fever, chills or weakness No chest pain, palpitation No shortness of breath or coughing Abdominal pain, no nausea or vomiting No urinary symptoms No any rash or wounds Physical Exam Vital Signs: Vital Signs: Last Vital Signs Temp 97.9 F 08/03/22 11:12 Pulse 78 08/03/22 13:26 Resp 19 08/03/22 11:12 BP 115/56 L 08/03/22 13:26 Pulse Ox 97 08/03/22 13:26 O2 Del Method 08/03/22 11:12 O2 Flow Rate 2 08/02/22 03:30 BMI result Body Mass Index 26.0 Const: Other: Constitutional : Alert, oriented, not in distress Neck : Normal inspection, Supple Cardiovascular : RRR, no JVP, no lower extremity edema Respiratory : fair bilateral air entry, no crackles, wheezes or rhonchi Gastrointestinal: soft, lax, Normal bowel sounds, mild generalized abdominal tenderness Skin : Warm, Dry Neurological : Alert & oriented x3, No focal deficit Objective Data Active Medications Acetaminophen (Acetaminophen 325 Mg Tablet) 650 mg PO Q6H PRN PRN Reason: Pain, Mild (Pain Scale 1-3) Last Admin: 08/02/22 16:36 Dose: 650 mg Documented By: PATTY Atorvastatin Calcium (Atorvastatin Calcium 20 Mg Tablet) 20 mg PO BEDTIME [facility] Last Admin: 08/02/22 20:04 Dose: 20 mg Documented By: SHAHID Dexamethasone (Dexamethasone 4 Mg Tablet) 4 mg PO BIDWM [facility] Last Admin: 08/03/22 08:16 Dose: 4 mg Documented By: ANN Dextrose (Dextrose 50 % 25 Gm/50 Ml Syringe) 25 gm IVPUSH Q15M PRN; Protocol PRN Reason: per Hypoglycemia Standing Ord. Enoxaparin Sodium (Enoxaparin Sodium 30 Mg/0.3 Ml Syringe) 30 mg SUBCUT Q24H [facility] Last Admin: 08/03/22 08:16 Dose: 30 mg Documented By: ANN Glucose (Glucose Gel 15 Gm Gel..Gram.) 15 gm PO Q15M PRN; Protocol PRN Reason: per Hypoglycemia Standing Ord. Insulin Human Lispro (Insulin Lispro 100 Unit/Ml 3 Ml Vial) 0 unit SUBCUT QIDACHS [facility]; Protocol Last Admin: 08/03/22 11:54 Dose: 4 unit Documented By: ANN Levothyroxine Sodium (Levothyroxine Sodium 50 Mcg Tablet) 50 mcg PO DAILY@0600 [facility] Last Admin: 08/03/22 05:15 Dose: 50 mcg Documented By: SHAHID Lidocaine (Lidocaine 4 % Patch Adh..Patch) 1 patch TRANSDERMA DAILY [facility]; Protocol Last Admin: 08/03/22 08:19 Dose: 1 patch Documented By: ANN Loperamide HCl (Loperamide Hcl 2 Mg Capsule) 2 mg PO Q6H PRN PRN Reason: Diarrhea Last Admin: 08/02/22 00:42 Dose: 2 mg Documented By: MANASA Melatonin (Melatonin 3 Mg Tablet) 6 mg PO BEDTIME PRN PRN Reason: Insomnia Last Admin: 08/03/22 00:08 Dose: 6 mg Documented By: SHAHID Multivitamins/Vitamin C (Multivitamin Tablet) 1 tab PO DAILY [facility] Last Admin: 08/03/22 08:16 Dose: 1 tab Documented By: ANN Omeprazole (Omeprazole 20 Mg Capsule.Dr) 20 mg PO DAILY@0630 [facility] Last Admin: 08/03/22 05:24 Dose: 20 mg Documented By: SHAHID Ondansetron HCl (Ondansetron Hcl 4 Mg/2 Ml Vial) 4 mg IVPUSH Q8H PRN PRN Reason: Nausea and Vomiting Last Admin: 08/02/22 16:36 Dose: 4 mg Documented By: PATTY Oxycodone HCl (Oxycodone Hcl Immed Release 5 Mg Tablet) 5 mg PO Q4H PRN PRN Reason: Pain, Moderate (Pain Scale 4-6 Last Admin: 08/03/22 05:44 Dose: 5 mg Documented By: SHAHID Pharmacy Consult (Consult Rx Perform Med Rec) 1 each MISCELLANE ONCE PRN PRN Reason: Consult order Sodium Chloride (0.9 % Sodium Chloride Flush 3 Ml Syringe) 3 ml IVFLUSH QSHIFT [facility] Last Admin: 08/03/22 08:18 Dose: 3 ml Documented By: ANN Labs CBC & Chem 7: 08/03/22 05:14 08/03/22 05:14 Labs: Laboratory Results - last 24 hr 08/02/22 08/02/22 08/02/22 15:12 16:47 19:15 MCV 79.7 L MCH 26.0 L MCHC 32.7 RDW 18.8 H Plt Count 312 MPV 9.3 L Immature Gran % (Auto) 5.9 H Neut % (Auto) 76.2 H Lymph % (Auto) 9.3 L Beadle % (Auto) 8.4 Eos % (Auto) 0.0 Baso % (Auto) 0.2 Lymph # (Auto) 1.6 Beadle # (Auto) 1.5 H Eos # (Auto) 0.0 Baso # (Auto) 0.0 Abs Immat Gran (auto) 1.03 H Absolute Neuts (auto) 13.2 H Absolute Nucleated RBC 0.050 H Nucleated RBC % (auto) 0.3 H Neutrophils % (Manual) Band Neutrophils % Lymphocytes % (Manual) Monocytes % (Manual) Metamyelocytes % Abs Neuts (Manual) Lymphocytes # (Manual) Monocytes # (Manual) Metamyelocytes # Hypersegmented Neuts Platelet Estimate Plt Morphology Comment RBC Morphology Polychromasia Basophilic Stippling Microcytosis Ovalocytes Anion Gap Estim Creat Clear Calc Estimated GFR POC Glucose 188 H 184 H Random Glucose Calcium 08/03/22 08/03/22 08/03/22 05:14 05:14 07:12 MCV 81.4 MCH 26.2 L MCHC 32.2 RDW 19.3 H Plt Count 357 MPV 9.7 Immature Gran % (Auto) Cancelled Neut % (Auto) Cancelled Lymph % (Auto) Cancelled Beadle % (Auto) Cancelled Eos % (Auto) Cancelled Baso % (Auto) Cancelled Lymph # (Auto) Cancelled Beadle # (Auto) Cancelled Eos # (Auto) Cancelled Baso # (Auto) Cancelled Abs Immat Gran (auto) Cancelled Absolute Neuts (auto) Cancelled Absolute Nucleated RBC 0.040 H Nucleated RBC % (auto) 0.2 Neutrophils % (Manual) 85 H Band Neutrophils % 0 L Lymphocytes % (Manual) 7 L Monocytes % (Manual) 7 Metamyelocytes % 1 Abs Neuts (Manual) 13.9 H Lymphocytes # (Manual) 1.1 L Monocytes # (Manual) 1.1 Metamyelocytes # 0.2 Hypersegmented Neuts PRESENT Platelet Estimate NORMAL Plt Morphology Comment NORMAL RBC Morphology NOTED Polychromasia 1+ (0-2) Basophilic Stippling 1+ (0-2) Microcytosis 1+ (5-14) Ovalocytes 1+ (5-14) Anion Gap 13 Estim Creat Clear Calc 61.4 Estimated GFR > 60 POC Glucose 199 H Random Glucose 212 H Calcium 8.9 08/03/22 08/03/22 11:12 11:15 MCV MCH MCHC RDW Plt Count MPV Immature Gran % (Auto) Neut % (Auto) Lymph % (Auto) Beadle % (Auto) Eos % (Auto) Baso % (Auto) Lymph # (Auto) Beadle # (Auto) Eos # (Auto) Baso # (Auto) Abs Immat Gran (auto) Absolute Neuts (auto) Absolute Nucleated RBC Nucleated RBC % (auto) Neutrophils % (Manual) Band Neutrophils % Lymphocytes % (Manual) Monocytes % (Manual) Metamyelocytes % Abs Neuts (Manual) Lymphocytes # (Manual) Monocytes # (Manual) Metamyelocytes # Hypersegmented Neuts Platelet Estimate Plt Morphology Comment RBC Morphology Polychromasia Basophilic Stippling Microcytosis Ovalocytes Anion Gap Estim Creat Clear Calc Estimated GFR POC Glucose 212 H 211 H Random Glucose Calcium Microbiology Microbiology Results: Microbiology 07/28/22 04:46 Gram Stain - Final Paracentesis Fluid Anaerobic Culture - Final Body Fluid Culture - Final Assessment and Plan (1) Acute renal failure: Status: Acute (2) Metastasis from pancreatic cancer: Status: Acute (3) Ascites: Status: Acute Plan 71-year-old female with a past medical history of hypertension, hyperlipidemia, diabetes, hypothyroidism, anemia, history of metastatic pancreatic cancer with peritoneal carcinomatosis, ascites, anxiety, depression from the nephrology office for presented to the hospital from the nephrology office for the worsening renal insufficiency. Patient's blood pressure was noted to be on the soft side in the ER; received IV fluids. Admitted to the hospital for further management. Hypotension presumed to be secondary to sepsis/ volume depletion/ hypoalbuminemia Currently blood pressure on the soft side. post IV fluids and IV albumin. Prep late and participate with physical therapy Paracentesis negative for SBP. continue to monitor blood pressures UTI cultures resulted mixed moises. Discontinued IV antibiotics. Abdominal pain 2/2 Metastatic pancreatic cancer/peritoneal carcinomatosis/ ascites: post therapeutic paracentesis on 07/31/2022-removed 7.[address] Beverly- has had chemotherapy about 2 weeks ago, current 50 on Decadron. Leukocytosis Patient's WBC noted to be 23 with no signs of infection. Likely secondary to steroid usage TONNY on CKD: Likely prerenal. Resolved. Improved creatinine to 0.7, baseline 1.1 Nephrology input appreciated, finished 2 days of IV albumin Chronic medical conditions: History of hypothyroidism: Levothyroxine History of hypertension: Home lisinopril, atenolol on hold secondary to soft blood pressures History of diabetes: Insulin sliding scale. Metformin on hold History of hyperlipidemia: Continue statin History of anxiety: Ativan p.r.n. History of glaucoma: Continue home eye drops DVT prophylaxis: Patient on Lovenox Code status: Full code The patient will need overnight hospital stay for monitoring of blood pressures, management of pain pending safe discharge plan. Quality Stroke Does the patient have a stroke diagnosis?: No VTE Prior VTE?: No VTE Risk Level:: Medical - moderate - high VTE Device Contraindication: Treatment Not Indicated VTE Drug Contraindication: N/A - Med Ordered
[2022-08-03] MEDS: ondansetron HCL 4 MG/2 ML VIAL IVPUSH (15:34)
[2022-08-03 16:24] LABS: Glucose, Whole Blood 200 mg/dL (60-115)
[2022-08-03 20:17] LABS: Glucose, Whole Blood 213 mg/dL (60-115)
[2022-08-03] MEDS: Atorvastatin Calcium 20 MG TABLET PO (20:33)
[2022-08-04] MEDS: 0.9 % Sodium Chloride Flush 3 ML SYRINGE IVFLUSH ×3 (00:32→16:30)
[2022-08-04] MEDS: Melatonin 3 MG TABLET 6 MG PO (00:34)
[2022-08-04] MEDS: oxyCODONE HCl Immed Release 5 MG TABLET PO ×4 (00:34→20:29)
[2022-08-04 02:22] VITALS: BP 122/70; PULSE 72; RESP 16; TEMP 36.4; O2SAT 96
[2022-08-04] MEDS: Levothyroxine Sodium 50 MCG TABLET PO (05:17)
[2022-08-04] MEDS: Omeprazole 20 MG CAPSULE.DR PO (05:30)
[2022-08-04 07:03] VITALS: BP 126/64; PULSE 70; RESP 16; TEMP 36.4; O2SAT 98
[2022-08-04 07:31] LABS: Glucose, Whole Blood 179 mg/dL (60-115)
[2022-08-04] MEDS: Multivitamin TABLET 1 TAB PO (09:19)
[2022-08-04] MEDS: dexAMETHasone 4 MG TABLET PO ×2 (09:20→16:29)
[2022-08-04] MEDS: Insulin Lispro 100 UNIT/ML 3 ML VIAL SUBCUT ×4 (09:20→20:30)
[2022-08-04] MEDS: Lidocaine 4 % Patch ADH..PATCH 1 PATCH TRANSDERMA (09:20)
[2022-08-04] MEDS: Enoxaparin Sodium 30 MG/0.3 ML SYRINGE SUBCUT (09:20)
[2022-08-04] MEDS: Acetaminophen 325 MG TABLET 650 MG PO (09:33)
[2022-08-04 10:57] VITALS: BP 125/62; PULSE 71; RESP 18; TEMP 36.6; O2SAT 95
[2022-08-04 11:34] LABS: Glucose, Whole Blood 168 mg/dL (60-115)
--- NOTE | 2022-08-04 13:09 | HO.PM.IMPN ---
Subjective Subjective Date of Service: 08/04/22 Interval History: the patient was seen and evaluated this morning Laying in bed,complaining of pain in her abdomen Denies any fever, chills or shortness of breath No reported other overnight events. Systemic review: No fever, chills or weakness No chest pain, palpitation No shortness of breath or coughing Abdominal pain, no nausea or vomiting No urinary symptoms No any rash or wounds Physical Exam Vital Signs: Vital Signs: Last Vital Signs Temp 97.9 F 08/04/22 10:57 Pulse 71 08/04/22 10:57 Resp 18 08/04/22 10:57 BP 125/62 08/04/22 10:57 Pulse Ox 95 08/04/22 10:57 O2 Del Method 08/04/22 10:57 O2 Flow Rate 2 08/02/22 03:30 BMI result Body Mass Index 26.0 Const: Other: Constitutional : Alert, oriented, not in distress Neck : Normal inspection, Supple Cardiovascular : RRR, no JVP, no lower extremity edema Respiratory : fair bilateral air entry, no crackles, wheezes or rhonchi Gastrointestinal: soft, lax, Normal bowel sounds, mild generalized abdominal tenderness Skin : Warm, Dry Neurological : Alert & oriented x3, No focal deficit Objective Data Active Medications Acetaminophen (Acetaminophen 325 Mg Tablet) 650 mg PO Q6H PRN PRN Reason: Pain, Mild (Pain Scale 1-3) Last Admin: 08/04/22 09:33 Dose: 650 mg Documented By: JUSTICE Atorvastatin Calcium (Atorvastatin Calcium 20 Mg Tablet) 20 mg PO BEDTIME [facility] Last Admin: 08/03/22 20:33 Dose: 20 mg Documented By: SHAHID Dexamethasone (Dexamethasone 4 Mg Tablet) 4 mg PO BIDWM [facility] Last Admin: 08/04/22 09:20 Dose: 4 mg Documented By: JUSTICE Dextrose (Dextrose 50 % 25 Gm/50 Ml Syringe) 25 gm IVPUSH Q15M PRN; Protocol PRN Reason: per Hypoglycemia Standing Ord. Enoxaparin Sodium (Enoxaparin Sodium 30 Mg/0.3 Ml Syringe) 30 mg SUBCUT Q24H [facility] Last Admin: 08/04/22 09:20 Dose: 30 mg Documented By: JUSTICE Glucose (Glucose Gel 15 Gm Gel..Gram.) 15 gm PO Q15M PRN; Protocol PRN Reason: per Hypoglycemia Standing Ord. Insulin Human Lispro (Insulin Lispro 100 Unit/Ml 3 Ml Vial) 0 unit SUBCUT QIDACHS [facility]; Protocol Last Admin: 08/04/22 12:17 Dose: 2 unit Documented By: JUSTICE Levothyroxine Sodium (Levothyroxine Sodium 50 Mcg Tablet) 50 mcg PO DAILY@0600 [facility] Last Admin: 08/04/22 05:17 Dose: 50 mcg Documented By: SHAHID Lidocaine (Lidocaine 4 % Patch Adh..Patch) 1 patch TRANSDERMA DAILY [facility]; Protocol Last Admin: 08/04/22 09:20 Dose: 1 patch Documented By: JUSTICE Loperamide HCl (Loperamide Hcl 2 Mg Capsule) 2 mg PO Q6H PRN PRN Reason: Diarrhea Last Admin: 08/02/22 00:42 Dose: 2 mg Documented By: MANASA Melatonin (Melatonin 3 Mg Tablet) 6 mg PO BEDTIME PRN PRN Reason: Insomnia Last Admin: 08/04/22 00:34 Dose: 6 mg Documented By: SHAHID Multivitamins/Vitamin C (Multivitamin Tablet) 1 tab PO DAILY [facility] Last Admin: 08/04/22 09:19 Dose: 1 tab Documented By: JUSTICE Omeprazole (Omeprazole 20 Mg Capsule.Dr) 20 mg PO DAILY@0630 [facility] Last Admin: 08/04/22 05:30 Dose: 20 mg Documented By: SHAHID Ondansetron HCl (Ondansetron Hcl 4 Mg/2 Ml Vial) 4 mg IVPUSH Q8H PRN PRN Reason: Nausea and Vomiting Last Admin: 08/03/22 15:34 Dose: 4 mg Documented By: ANN Oxycodone HCl (Oxycodone Hcl Immed Release 5 Mg Tablet) 5 mg PO Q4H PRN PRN Reason: Pain, Moderate (Pain Scale 4-6 Last Admin: 08/04/22 09:33 Dose: 5 mg Documented By: JUSTICE Pharmacy Consult (Consult Rx Perform Med Rec) 1 each MISCELLANE ONCE PRN PRN Reason: Consult order Sodium Chloride (0.9 % Sodium Chloride Flush 3 Ml Syringe) [facility] Last Admin: 08/04/22 09:20 Dose: 3 ml Documented By: JUSTICE Labs CBC & Chem 7: 08/03/22 05:14 08/03/22 05:14 Labs: Laboratory Results - last 24 hr 08/03/22 08/03/22 08/04/22 15:21 19:22 07:08 POC Glucose 200 H 213 H 179 H 08/04/22 11:01 POC Glucose 168 H Assessment and Plan (1) Pancreatic adenocarcinoma: Status: Acute Plan 71-year-old female with a past medical history of hypertension, hyperlipidemia, diabetes, hypothyroidism, anemia, history of metastatic pancreatic cancer with peritoneal carcinomatosis, ascites, anxiety, depression from the nephrology office for presented to the hospital from the nephrology office for the worsening renal insufficiency. Patient's blood pressure was noted to be on the soft side in the ER; received IV fluids. Admitted to the hospital for further management. Abdominal pain 2/2 Metastatic pancreatic cancer/peritoneal carcinomatosis/ ascites: post therapeutic paracentesis on 07/31/2022-removed 7.[address] Beverly- has had chemotherapy about 2 weeks ago, currently on Decadron. Oxycodone for pain as needed Hypotension presumed to be secondary to sepsis/ volume depletion/ hypoalbuminemia Currently blood pressure on the soft side. post IV fluids and IV albumin. Prep late and participate with physical therapy Paracentesis negative for SBP. continue to monitor blood pressures UTI cultures resulted mixed moises. Discontinued IV antibiotics. Leukocytosis Patient's WBC noted to be 23 with no signs of infection. Likely secondary to steroid usage TONNY on CKD: Likely prerenal. Resolved. Improved creatinine to 0.7, baseline 1.1 Nephrology input appreciated, finished 2 days of IV albumin Chronic medical conditions: History of hypothyroidism: Levothyroxine History of hypertension: Home lisinopril, atenolol on hold secondary to soft blood pressures History of diabetes: Insulin sliding scale. Metformin on hold History of hyperlipidemia: Continue statin History of anxiety: Ativan p.r.n. History of glaucoma: Continue home eye drops DVT prophylaxis: Patient on Lovenox Code status: Full code The patient will need overnight hospital stay for monitoring of blood pressures, management of pain pending safe discharge plan. Quality Stroke Does the patient have a stroke diagnosis?: No VTE Prior VTE?: No VTE Risk Level:: Medical - moderate - high VTE Device Contraindication: Treatment Not Indicated VTE Drug Contraindication: N/A - Med Ordered
[2022-08-04] MEDS: ondansetron HCL 4 MG/2 ML VIAL IVPUSH (13:40)
[2022-08-04 14:56] VITALS: BP 98/51; PULSE 75; RESP 18; TEMP 36.6; O2SAT 99
[2022-08-04 15:46] LABS: Glucose, Whole Blood 240 mg/dL (60-115)
[2022-08-04 19:08] VITALS: BP 112/61; PULSE 71; RESP 18; TEMP 36.2; O2SAT 97
[2022-08-04 20:28] LABS: Glucose, Whole Blood 215 mg/dL (60-115)
[2022-08-04] MEDS: Atorvastatin Calcium 20 MG TABLET PO (20:30)
[2022-08-05] VITALS (7 sets, daily range): BP systolic 121–143; BP diastolic 55–79; PULSE 66–95; RESP 16–18; TEMP 36.2–37; O2SAT 94–99
[2022-08-05] MEDS: Melatonin 3 MG TABLET 6 MG PO (00:24)
[2022-08-05] MEDS: oxyCODONE HCl Immed Release 5 MG TABLET PO ×5 (01:36→20:51)
[2022-08-05] MEDS: Levothyroxine Sodium 50 MCG TABLET PO (05:46)
[2022-08-05] MEDS: Omeprazole 20 MG CAPSULE.DR PO (05:46)
[2022-08-05 06:32] LABS: Hematocrit 28.5 % (37.0-47.0); Hemoglobin 9.2 g/dl (12.0-16.0); Mean Corpuscular HGB Conc 32.3 g/dl (31.0-35.0); Mean Corpuscular Volume 80.5 fL (80.0-98.0); Mean Platelet Volume 9.1 fL (9.4-12.3); Platelet Count 404 X10*3/uL (160-400); Red Blood Count 3.54 X10*6/uL (4.20-5.50); White Blood Count 15.3 X10*3/uL (4.8-10.8)
[2022-08-05 06:58] LABS: Anion Gap 15 (12-20); Blood Urea Nitrogen 15 mg/dL (9-16); Calcium 8.9 mg/dL (8.4-10.2); Carbon Dioxide 25 mmol/L (22-29); Chloride 100 mmol/L (96-108); Creatinine Clr Calc Pharmacy 69.6; Estimated Glomerular Filt Rate > 60; Glucose Random 238 mg/dL (60-115); Sodium 135 mmol/L (135-145)
[2022-08-05 07:46] LABS: Glucose, Whole Blood 197 mg/dL (60-115)
[2022-08-05] MEDS: Enoxaparin Sodium 30 MG/0.3 ML SYRINGE SUBCUT (08:48)
[2022-08-05] MEDS: Multivitamin TABLET 1 TAB PO (08:48)
[2022-08-05] MEDS: dexAMETHasone 4 MG TABLET PO ×2 (08:48→16:32)
[2022-08-05] MEDS: Insulin Lispro 100 UNIT/ML 3 ML VIAL SUBCUT ×4 (08:49→20:45)
[2022-08-05] MEDS: 0.9 % Sodium Chloride Flush 3 ML SYRINGE IVFLUSH ×3 (08:49→20:45)
[2022-08-05] MEDS: Lidocaine 4 % Patch ADH..PATCH 1 PATCH TRANSDERMA (08:49)
--- NOTE | 2022-08-05 09:15 | MHC.CM.PN ---
CM MET WITH PT TO DISCUSS DC PLANNING. PT REPORTS SHE DOES NOT FEEL READY BECAUSE SHE IS WORRIED SHE WILL HAVE TO COME TO THE ED AGAIN AND DOES NOT FEEL SHE RECEIVED CARE WHILE THERE. SHE ALSO ACKNOWLEDGES SHE IS AWARE THE HEALTHCARE SYSTEM IS HAVING DIFFICULTY WITH STAFFING AND THIS WILL BE THE CASE AT ANY HOSPITAL. SHE SAYS SHE IS ALSO CONCERNED ABOUT MEETING WITH MORE DOCTORS SO THERE IS A PLAN RE THE FLUID BUILD UP AND WHEN SHE WILL RESTART CHEMO. CM EXPLAINED THESE ARE THINGS SHE WOULD DISCUSS WITH HER MDS OUTPATIENT. SHE SAYS SHE KNOWS BUT FEELS SHE NEEDS TO BE ABLE TO CARE FOR HERSELF BEFORE SHE CAN GO HOME. CM ASKED WHAT SHE WAS UNABLE TO DO FOR HERSELF, AND SHE EXPLAINS SHE CAN DO EVERYTHING BUT IT TAKES LONGER AND SOMETIMES THERE IS PAIN. SHE SAYS SHE HAS RECEIVED HOME MEDS TO MANAGE THE PAIN. PT THEN EXPLAINS HER IS WORKING AND SHE IS AFRAID TO BE HOME ALONE. SHE SAYS SHE CANNOT REACH HIM AT THIS TIME, BUT ONCE SHE CAN, SHE WILL TALK TO HIM ABOUT BEING HOME TOMORROW. WILLIAM HAS ATTEMPTED TO REACH PTS SEVERAL TIMES, CALL GOES DIRECTLY TO . WILLIAM WILL CALL AGAIN AT A LATER TIME
--- NOTE | 2022-08-05 10:22 | HO.PM.IMPN ---
Subjective Subjective Date of Service: 08/05/22 Interval History: the patient was seen and evaluated this morning sitting in her chair, complaining of pain in her abdomen Denies any fever, chills or shortness of breath No reported other overnight events. Systemic review: No fever, chills or weakness No chest pain, palpitation No shortness of breath or coughing Abdominal pain, no nausea or vomiting No urinary symptoms No any rash or wounds Physical Exam Vital Signs: Vital Signs: Last Vital Signs Temp 97.7 F 08/05/22 07:29 Pulse 80 08/05/22 07:29 Resp 18 08/05/22 07:29 BP 121/61 08/05/22 07:29 Pulse Ox 94 08/05/22 07:29 O2 Del Method 08/05/22 07:29 O2 Flow Rate 2 08/02/22 03:30 BMI result Body Mass Index 26.0 Const: Other: Constitutional : Alert, oriented, not in distress Neck : Normal inspection, Supple Cardiovascular : RRR, no JVP, no lower extremity edema Respiratory : fair bilateral air entry, no crackles, wheezes or rhonchi Gastrointestinal: soft, lax, Normal bowel sounds, mild generalized abdominal tenderness Skin : Warm, Dry Neurological : Alert & oriented x3, No focal deficit Objective Data Active Medications Acetaminophen (Acetaminophen 325 Mg Tablet) 650 mg PO Q6H PRN PRN Reason: Pain, Mild (Pain Scale 1-3) Last Admin: 08/04/22 09:33 Dose: 650 mg Documented By: JUSTICE Atorvastatin Calcium (Atorvastatin Calcium 20 Mg Tablet) 20 mg PO BEDTIME [facility] Last Admin: 08/04/22 20:30 Dose: 20 mg Documented By: PAULA Dexamethasone (Dexamethasone 4 Mg Tablet) 4 mg PO BIDWM [facility] Last Admin: 08/05/22 08:48 Dose: 4 mg Documented By: JUSTICE Dextrose (Dextrose 50 % 25 Gm/50 Ml Syringe) 25 gm IVPUSH Q15M PRN; Protocol PRN Reason: per Hypoglycemia Standing Ord. Enoxaparin Sodium (Enoxaparin Sodium 30 Mg/0.3 Ml Syringe) 30 mg SUBCUT Q24H [facility] Last Admin: 08/05/22 08:48 Dose: 30 mg Documented By: JUSTICE Glucose (Glucose Gel 15 Gm Gel..Gram.) 15 gm PO Q15M PRN; Protocol PRN Reason: per Hypoglycemia Standing Ord. Insulin Human Lispro (Insulin Lispro 100 Unit/Ml 3 Ml Vial) 0 unit SUBCUT QIDACHS [facility]; Protocol Last Admin: 08/05/22 08:49 Dose: 2 unit Documented By: JUSTICE Levothyroxine Sodium (Levothyroxine Sodium 50 Mcg Tablet) 50 mcg PO DAILY@0600 [facility] Last Admin: 08/05/22 05:46 Dose: 50 mcg Documented By: PAULA Lidocaine (Lidocaine 4 % Patch Adh..Patch) 1 patch TRANSDERMA DAILY [facility]; Protocol Last Admin: 08/05/22 08:49 Dose: 1 patch Documented By: JUSTICE Loperamide HCl (Loperamide Hcl 2 Mg Capsule) 2 mg PO Q6H PRN PRN Reason: Diarrhea Last Admin: 08/02/22 00:42 Dose: 2 mg Documented By: MANASA Melatonin (Melatonin 3 Mg Tablet) 6 mg PO BEDTIME PRN PRN Reason: Insomnia Last Admin: 08/05/22 00:24 Dose: 6 mg Documented By: PAULA Multivitamins/Vitamin C (Multivitamin Tablet) 1 tab PO DAILY [facility] Last Admin: 08/05/22 08:48 Dose: 1 tab Documented By: JUSTICE Omeprazole (Omeprazole 20 Mg Capsule.Dr) 20 mg PO DAILY@0630 [facility] Last Admin: 08/05/22 05:46 Dose: 20 mg Documented By: PAULA Ondansetron HCl (Ondansetron Hcl 4 Mg/2 Ml Vial) 4 mg IVPUSH Q8H PRN PRN Reason: Nausea and Vomiting Last Admin: 08/04/22 13:40 Dose: 4 mg Documented By: JUSTICE Oxycodone HCl (Oxycodone Hcl Immed Release 5 Mg Tablet) 5 mg PO Q4H PRN PRN Reason: Pain, Moderate (Pain Scale 4-6 Last Admin: 08/05/22 05:46 Dose: 5 mg Documented By: PAULA Pharmacy Consult (Consult Rx Perform Med Rec) 1 each MISCELLANE ONCE PRN PRN Reason: Consult order Sodium Chloride (0.9 % Sodium Chloride Flush 3 Ml Syringe) 3 ml IVFLUSH QSHIFT [facility] Last Admin: 08/05/22 08:49 Dose: 3 ml Documented By: JUSTICE Labs CBC & Chem 7: 08/05/22 05:42 08/05/22 05:42 Labs: Laboratory Results - last 24 hr 08/04/22 08/04/22 08/04/22 11:01 15:00 19:11 MCV MCH MCHC RDW Plt Count MPV Absolute Nucleated RBC Nucleated RBC % (auto) Anion Gap Estim Creat Clear Calc Estimated GFR POC Glucose 168 H 240 H 215 H Random Glucose Calcium 08/05/22 08/05/22 08/05/22 05:42 05:42 07:31 MCV 80.5 MCH 26.0 L MCHC 32.3 RDW 20.0 H Plt Count 404 H MPV 9.1 L Absolute Nucleated RBC 0.000 Nucleated RBC % (auto) 0.0 Anion Gap 15 Estim Creat Clear Calc 69.6 Estimated GFR > 60 POC Glucose 197 H Random Glucose 238 H Calcium 8.9 Assessment and Plan (1) Metastasis from pancreatic cancer: Status: Acute Plan 71-year-old female with a past medical history of hypertension, hyperlipidemia, diabetes, hypothyroidism, anemia, history of metastatic pancreatic cancer with peritoneal carcinomatosis, ascites, anxiety, depression from the nephrology office for presented to the hospital from the nephrology office for the worsening renal insufficiency. Patient's blood pressure was noted to be on the soft side in the ER; received IV fluids. Admitted to the hospital for further management. Abdominal pain 2/2 Metastatic pancreatic cancer/peritoneal carcinomatosis/ ascites: post therapeutic paracentesis on 07/31/2022-removed 7.[address] Beverly- has had chemotherapy about 2 weeks ago, currently on Decadron. Oxycodone for pain as needed Hypotension presumed to be secondary to sepsis/ volume depletion/ hypoalbuminemia Currently blood pressure on the soft side. post IV fluids and IV albumin. Prep late and participate with physical therapy Paracentesis negative for SBP. continue to monitor blood pressures UTI cultures resulted mixed moises. Discontinued IV antibiotics. Leukocytosis Patient's WBC noted to be 23 with no signs of infection. Likely secondary to steroid usage TONNY on CKD: Likely prerenal. Resolved. Improved creatinine to 0.7, baseline 1.1 Nephrology input appreciated, finished 2 days of IV albumin Chronic medical conditions: History of hypothyroidism: Levothyroxine History of hypertension: Home lisinopril, atenolol on hold secondary to soft blood pressures History of diabetes: Insulin sliding scale. Metformin on hold History of hyperlipidemia: Continue statin History of anxiety: Ativan p.r.n. History of glaucoma: Continue home eye drops DVT prophylaxis: Patient on Lovenox Code status: Full code The patient will need overnight hospital stay for monitoring of blood pressures, management of pain pending safe discharge plan as patient reports she doesnt feel safe being discharged home today as no one there. Quality Stroke Does the patient have a stroke diagnosis?: No VTE Prior VTE?: No VTE Risk Level:: Medical - moderate - high VTE Device Contraindication: Treatment Not Indicated VTE Drug Contraindication: N/A - Med Ordered
[2022-08-05] MEDS: ondansetron HCL 4 MG/2 ML VIAL IVPUSH (10:39)
[2022-08-05] MEDS: Acetaminophen 325 MG TABLET 650 MG PO (10:39)
[2022-08-05 11:50] LABS: Glucose, Whole Blood 190 mg/dL (60-115)
[2022-08-05] MEDS: Calcium Carbonate 750 MG TAB.CHEW PO (15:12)
[2022-08-05 16:17] LABS: Glucose, Whole Blood 216 mg/dL (60-115)
[2022-08-05 20:27] LABS: Glucose, Whole Blood 299 mg/dL (60-115)
[2022-08-05] MEDS: Atorvastatin Calcium 20 MG TABLET PO (20:44)
[2022-08-06] VITALS (7 sets, daily range): BP systolic 115–140; BP diastolic 56–69; PULSE 70–86; RESP 16–18; TEMP 36.1–37; O2SAT 96–99
[2022-08-06] MEDS: Melatonin 3 MG TABLET 6 MG PO (00:04)
[2022-08-06] MEDS: oxyCODONE HCl Immed Release 5 MG TABLET PO ×3 (02:38→20:25)
[2022-08-06] MEDS: ondansetron HCL 4 MG/2 ML VIAL IVPUSH ×2 (02:44→13:59)
[2022-08-06] MEDS: Omeprazole 20 MG CAPSULE.DR PO (05:18)
[2022-08-06] MEDS: Levothyroxine Sodium 50 MCG TABLET PO (05:18)
[2022-08-06 07:32] LABS: Glucose, Whole Blood 161 mg/dL (60-115)
[2022-08-06] MEDS: Enoxaparin Sodium 30 MG/0.3 ML SYRINGE SUBCUT (08:20)
[2022-08-06] MEDS: Lidocaine 4 % Patch ADH..PATCH 1 PATCH TRANSDERMA (08:20)
[2022-08-06] MEDS: dexAMETHasone 4 MG TABLET PO ×2 (08:20→16:33)
[2022-08-06] MEDS: Multivitamin TABLET 1 TAB PO (08:20)
[2022-08-06] MEDS: Insulin Lispro 100 UNIT/ML 3 ML VIAL SUBCUT ×4 (08:21→20:26)
[2022-08-06] MEDS: 0.9 % Sodium Chloride Flush 3 ML SYRINGE IVFLUSH ×3 (08:24→20:27)
--- NOTE | 2022-08-06 10:36 | P.DS_ITS ---
DS: Providers Provider Date of Service: 08/07/22 Date of admission: 07/28/22 06:04 Primary care physician: Sammy Cordova PA-C Consults: 07/30/22 09:32 Consult to Nephrology Routine Consulting Provider: Praneeth Keen Reason for consultation: Renal failure Has provider been notified: No DS: Diagnosis Discharge Diagnosis (1) Metastasis from pancreatic cancer: Status: Acute DS: Summary Hospital Course Hospital Course: Admission note HPI This is a 71-year-old female with pertinent history of metastatic pancreatic cancer with peritoneal carcinomatosis, elc-pljmcgm-svjlkulof diabetes mellitus, essential hypertension, generalized anxiety disorder, hypothyroidism who presents to the emergency department at the behest of her compliance and control analyst for evaluation and management of low blood pressure.? Patient was sent to compliance and control analyst's office by her oncologist due to progressive renal insufficiency with hypokalemia.? At the compliance and control analyst's office, patient's blood pressure was found to be low and she said was sent to the ER for further evaluation and management.? Patient states her blood pressure is usually within normal limits with systolic around 120 sclerae she denies dizziness or lightheadedness.? Does endorse generalized abdominal pain, nonradiating, constant.? No fever or chills.? Denies burning micturition but does have urinary hesitancy.? No chest discomfort, shortness of breath, cough, changes in bowel habits Hospital course The patient presented for worsening kidney function, hypotension and evidence of urosepsis. Treated with IV antibiotic of ceftriaxone and the urine culture grew mixed bacteria antibiotic was discontinued. Noted to have acute kidney injury on top of CKD that was treated with IV fluid as Nephrology team evaluated the patient and recommended IV albumin along with the fluids with good response as her kidney function improved back to baseline with creatinine of 0.7. Blood pressure improved back to normal readings once Lisinopril and Atenolol discontinued. reported abdominal pain from Metastatic pancreatic cancer and peritoneal carcinomatosis. had Paracentesis done with removal of 7.6 L of fluids. kept on home dose Decadrone with a plan to follow with dr Beverly after discharge as outpatient to discuss options of treatment. pain controlled with Oxycodone as needed. Stop taking Atenolol and Lisinopril OXycodone as needed for pain To follow up as outpatient with dr Beverly for chemotherapy planning. Time Spent with Patient Time attestation: Total time spent providing and/or coordinating discharge services: Discharge coordination time: Greater than 30 minutes Quality: Safe Use of Opioids Does Pt have an Active Cancer Diagnosis on the Problem List?: No Quality: Stroke Does the patient have a stroke diagnosis?: No Physical Exam Vital Signs: Vital Signs: Last Vital Signs Temp 98.6 F 08/06/22 07:26 Pulse 71 08/06/22 07:26 Resp 16 08/06/22 07:26 BP 129/60 08/06/22 07:26 Pulse Ox 99 08/06/22 07:26 O2 Del Method 08/06/22 07:26 O2 Flow Rate 2 08/02/22 03:30 BMI result Body Mass Index 26.0 Const: Other: Constitutional : Alert, oriented, not in distress Neck : Normal inspection, Supple Cardiovascular : RRR, no JVP, no lower extremity edema Respiratory : fair bilateral air entry, no crackles, wheezes or rhonchi Gastrointestinal: soft, lax, Normal bowel sounds, no tenderness Skin : Warm, Dry Neurological : Alert & oriented x3, No focal deficit DS: Data Data Completed and Pending Labs on day of discharge: Laboratory Results - last 24 hr 08/05/22 08/05/22 08/05/22 11:20 15:34 20:19 POC Glucose 190 H 216 H 299 H 08/06/22 07:25 POC Glucose 161 H Imaging Chest x-ray: Radiologist's impression: ITS Impressions Chest X-Ray 07/28/22 05:26 IMPRESSION: No significant pleural effusion. Abdomen/Pelvis CT 07/28/22 05:56 IMPRESSION: 1. Moderate to large volume ascites, mildly increased since 07/03/2022. 2. Redemonstrated heterogeneous soft tissue in the mesentery, suspicious for carcinomatosis in the setting of pancreatic cancer. Paracentesis Ultrasound 07/31/22 10:11 IMPRESSION: Successful ultrasound-guided diagnostic and therapeutic paracentesis performed. Discharge Plan Discharge Anticipated Discharge Date/Time: 08/06/22 10:20 Patient Disposition: Home, Self-Care Discharge Diagnosis: Acute kidney injury Hypotension Urine infection Referrals: Sammy Cordova PA-C [Primary Care Provider] - 1 Week Discharge Medications: Continued methenamine hippurate 1 gram tablet 1 g PO DAILY 90 Days Qty: 90 3RF metformin 500 mg tablet extended release 24 hr 1,000 mg PO BID 30 Days Qty: 120 4RF (DME) FreeStyle Lite Strips Strip See Rx Instructions .Route Qty: 100 3RF Rx Instructions: As directed (DME) blood-glucose meter [FreeStyle [place] Lite] Kit See Rx Instructions .Route Qty: 1 0RF Rx Instructions: As directed (DME) lancets [FreeStyle Lancets] 28 gauge misc See Rx Instructions .Route Qty: 100 3RF Rx Instructions: As directed hydrocortisone 2.5 % cream 1 appl topical TID PRN (Reason: itching) Qty: 28 0RF fluticasone propionate [Flonase Allergy Relief] 50 mcg/actuation spray,suspension 2 spray intranasal DAILY PRN (Reason: Allergic Symptoms) Rx Instructions: administer into each nostril dexamethasone 4 mg Tablet 4 mg PO BID Qty: 30 4RF Rx Instructions: for 2 days after chemo Multi-Vitamins with Iron Tablet,Chewable 1 tab PO DAILY Qty: 90 3RF Rx Instructions: administer with a meal ondansetron HCl 4 mg Tablet 4 mg PO Q8H Qty: 50 4RF lorazepam 0.5 mg tablet 0.5 mg PO BEDTIME PRN (Reason: anxiety) Qty: 30 2RF levothyroxine 50 mcg tablet 50 mcg PO DAILY@0600 pantoprazole 40 mg tablet,delayed release (DR/EC) 40 mg PO DAILY@0630 potassium chloride [K-Tab] 10 mEq tablet extended release 10 meq PO DAILY acetaminophen-codeine 300-30 mg tablet 1 tab PO Q8H PRN (Reason: Pain) oxycodone 5 mg tablet 5 mg PO Q8H PRN (Reason: pain) 7 Days Qty: 21 0RF Rx Instructions: Partial Fill upon patient request. simvastatin 40 mg tablet 40 mg PO BEDTIME 90 Days Qty: 90 1RF latanoprost 0.005 % drops 1 drp ophthalmic (eye) BEDTIME Discontinued lisinopril 2.5 mg tablet 2.5 mg PO DAILY Qty: 90 2RF ciprofloxacin HCl 250 mg tablet 250 mg PO DAILY 30 Days Qty: 30 5RF atenolol 25 mg tablet 12.5 mg PO DAILY Qty: 15 3RF nitrofurantoin macrocrystal 100 mg capsule 100 mg PO BID 7 Days Qty: 14 0RF Rx Instructions: must administer with a meal/food Discharge Orders: Discharge Order (Routine); Ordered 08/06/22 Ordered By: Hernan Pop Diet: Advance to usual diet Activity on Discharge: As tolerated Stand Alone Forms: Patient Portal Discharge page Care Plan Goals: Read below Health Concerns: Read below Plan of Treatment: Read below Assessment: You were admitted to the hospital for worsening kidney function and low blood pressure readings associated with urine infection. treated with IV fluids and hold blood pressure medications along with antibiotics as you were followed by nephrology team. cancer related pain was controlled by oral oxycodone. Stop taking Atenolol and Lisinopril OXycodone as needed for pain To follow up as outpatient with dr Beverly for chemotherapy planning.
[2022-08-06 11:27] LABS: Glucose, Whole Blood 167 mg/dL (60-115)
--- NOTE | 2022-08-06 11:45 | MHC.CM.PN ---
met with pt and her explined that md feels she is medically ready for dc ,pt wants to appeal pt signed imm amd detailed notice given to pt
[2022-08-06 16:22] LABS: Glucose, Whole Blood 241 mg/dL (60-115)
[2022-08-06 20:14] LABS: Glucose, Whole Blood 240 mg/dL (60-115)
[2022-08-06] MEDS: Atorvastatin Calcium 20 MG TABLET PO (20:26)
[2022-08-07] VITALS (7 sets, daily range): BP systolic 116–133; BP diastolic 58–69; PULSE 73–110; RESP 17–19; TEMP 36.1–36.7; O2SAT 88–100
[2022-08-07] MEDS: oxyCODONE HCl Immed Release 5 MG TABLET PO ×3 (00:36→19:36)
[2022-08-07] MEDS: Melatonin 3 MG TABLET 6 MG PO (00:37)
--- NOTE | 2022-08-07 02:46 | PC.NURSE ---
Pt complained of shortness of breath, O2 saturation 97 % on room air. Lung sounds clear, respiration is even non-labored. Pt denies chest pain, c/0 of wet cough with difficulties coughing out secretions. Pt placed on 1L sup O2 for comfort per pt request.
[2022-08-07] MEDS: Acetaminophen 325 MG TABLET 650 MG PO ×2 (03:27→13:57)
[2022-08-07] MEDS: guaiFENesin 200 MG/10 ML 10 ML LIQUID PO ×3 (04:47→19:29)
[2022-08-07] MEDS: Omeprazole 20 MG CAPSULE.DR PO (05:08)
[2022-08-07] MEDS: Levothyroxine Sodium 50 MCG TABLET PO (05:08)
[2022-08-07 07:25] LABS: Glucose, Whole Blood 188 mg/dL (60-115)
[2022-08-07] MEDS: Multivitamin TABLET 1 TAB PO (08:10)
[2022-08-07] MEDS: Insulin Lispro 100 UNIT/ML 3 ML VIAL SUBCUT ×4 (08:10→19:45)
[2022-08-07] MEDS: Enoxaparin Sodium 30 MG/0.3 ML SYRINGE SUBCUT (08:11)
[2022-08-07] MEDS: dexAMETHasone 4 MG TABLET PO ×2 (08:11→16:45)
[2022-08-07] MEDS: Lidocaine 4 % Patch ADH..PATCH 1 PATCH TRANSDERMA (08:12)
[2022-08-07] MEDS: 0.9 % Sodium Chloride Flush 3 ML SYRINGE IVFLUSH ×3 (08:13→19:37)
[2022-08-07 11:15] LABS: Glucose, Whole Blood 156 mg/dL (60-115)
--- NOTE | 2022-08-07 13:40 | MHC.CM.PN ---
CM MET W/PT AND PT DECLINES TO D/C UNTIL RESULTS OF APPEAL ARE BACK, CM AWAITING DECISION FROM SABINODINESH.
[2022-08-07 16:34] LABS: Glucose, Whole Blood 254 mg/dL (60-115)
[2022-08-07] MEDS: Atorvastatin Calcium 20 MG TABLET PO (19:29)
[2022-08-07 19:55] LABS: Glucose, Whole Blood 215 mg/dL (60-115)
[2022-08-08] MEDS: oxyCODONE HCl Immed Release 5 MG TABLET PO ×2 (00:05→19:38)
[2022-08-08] MEDS: Melatonin 3 MG TABLET 6 MG PO (00:06)
[2022-08-08 04:00] VITALS: BP 127/61; PULSE 75; RESP 18; TEMP 36.1; O2SAT 100
[2022-08-08] MEDS: Omeprazole 20 MG CAPSULE.DR PO (04:17)
[2022-08-08] MEDS: Levothyroxine Sodium 50 MCG TABLET PO (04:17)
[2022-08-08] MEDS: guaiFENesin 200 MG/10 ML 10 ML LIQUID PO ×3 (04:17→19:39)
[2022-08-08 07:04] VITALS: BP 134/85; PULSE 78; RESP 18; TEMP 36.1; O2SAT 98
[2022-08-08 07:10] LABS: Glucose, Whole Blood 195 mg/dL (60-115)
[2022-08-08] MEDS: Insulin Lispro 100 UNIT/ML 3 ML VIAL SUBCUT ×4 (07:40→20:43)
[2022-08-08] MEDS: 0.9 % Sodium Chloride Flush 3 ML SYRINGE IVFLUSH ×3 (07:43→19:41)
[2022-08-08] MEDS: Lidocaine 4 % Patch ADH..PATCH 1 PATCH TRANSDERMA (09:56)
[2022-08-08] MEDS: Enoxaparin Sodium 30 MG/0.3 ML SYRINGE SUBCUT (09:56)
[2022-08-08] MEDS: Multivitamin TABLET 1 TAB PO (09:57)
[2022-08-08] MEDS: dexAMETHasone 4 MG TABLET PO ×2 (09:57→17:16)
[2022-08-08 10:56] VITALS: BP 123/81; PULSE 79; RESP 18; TEMP 36.4; O2SAT 97
[2022-08-08 11:09] LABS: Glucose, Whole Blood 218 mg/dL (60-115)
--- NOTE | 2022-08-08 11:44 | P.PNIM_ITS ---
Subjective Subjective Date of Service: 08/08/22 Interval History: cc: low blood pressure interval history: some abd distension Cardiovascular Cardiovascular: Reports no additional cardiovascular complaints Respiratory Respiratory: Reports no additional respiratory complaints Physical Exam Vital Signs: Vital Signs: Last Vital Signs Temp 97.5 F 08/08/22 10:56 Pulse 79 08/08/22 10:56 Resp 18 08/08/22 10:56 BP 123/81 08/08/22 10:56 Pulse Ox 97 08/08/22 10:56 O2 Del Method 08/08/22 10:56 O2 Flow Rate 2 08/08/22 04:00 BMI result Body Mass Index 26.0 General: AO X 3, no acute distress Resp: CTA bilateral, no accessory muscles used CVS: S1,S2,RRR GI: soft, non tender, distended Neuro: motor grossly intact, alert Psych: appropriate affect, appropriate insight Objective Data Active Medications Acetaminophen (Acetaminophen 325 Mg Tablet) 650 mg PO Q6H PRN PRN Reason: Pain, Mild (Pain Scale 1-3) Last Admin: 08/07/22 13:57 Dose: 650 mg Documented By: POPEYE Atorvastatin Calcium (Atorvastatin Calcium 20 Mg Tablet) 20 mg PO BEDTIME [facility] Last Admin: 08/07/22 19:29 Dose: 20 mg Documented By: EFE Calcium Carbonate (Calcium Carbonate 750 Mg Tab.Chew) 750 mg PO Q4H PRN PRN Reason: Heartburn Last Admin: 08/05/22 15:12 Dose: 750 mg Documented By: JUSTICE Dexamethasone (Dexamethasone 4 Mg Tablet) 4 mg PO BIDWM [facility] Last Admin: 08/08/22 09:57 Dose: 4 mg Documented By: PEE Dextrose (Dextrose 50 % 25 Gm/50 Ml Syringe) 25 gm IVPUSH Q15M PRN; Protocol PRN Reason: per Hypoglycemia Standing Ord. Enoxaparin Sodium (Enoxaparin Sodium 30 Mg/0.3 Ml Syringe) 30 mg SUBCUT Q24H [facility] Last Admin: 08/08/22 09:56 Dose: 30 mg Documented By: PEE Glucose (Glucose Gel 15 Gm Gel..Gram.) 15 gm PO Q15M PRN; Protocol PRN Reason: per Hypoglycemia Standing Ord. Guaifenesin (Guaifenesin 200 Mg/10 Ml 10 Ml Liquid) 10 ml PO Q6H PRN PRN Reason: cough Last Admin: 08/08/22 04:17 Dose: 10 ml Documented By: EFE Insulin Human Lispro (Insulin Lispro 100 Unit/Ml 3 Ml Vial) 0 unit SUBCUT QIDACHS [facility]; Protocol Last Admin: 08/08/22 07:40 Dose: 2 unit Documented By: PEE Levothyroxine Sodium (Levothyroxine Sodium 50 Mcg Tablet) 50 mcg PO DAILY@0600 [facility] Last Admin: 08/08/22 04:17 Dose: 50 mcg Documented By: EFE Lidocaine (Lidocaine 4 % Patch Adh..Patch) 1 patch TRANSDERMA DAILY [facility]; Protocol Last Admin: 08/08/22 09:56 Dose: 1 patch Documented By: PEE Loperamide HCl (Loperamide Hcl 2 Mg Capsule) 2 mg PO Q6H PRN PRN Reason: Diarrhea Last Admin: 08/02/22 00:42 Dose: 2 mg Documented By: DAORALKev Melatonin (Melatonin 3 Mg Tablet) 6 mg PO BEDTIME PRN PRN Reason: Insomnia Last Admin: 08/08/22 00:06 Dose: 6 mg Documented By: EFE Multivitamins/Vitamin C (Multivitamin Tablet) 1 tab PO DAILY [facility] Last Admin: 08/08/22 09:57 Dose: 1 tab Documented By: PEE Omeprazole (Omeprazole 20 Mg Capsule.Dr) 20 mg PO DAILY@0630 [facility] Last Admin: 08/08/22 04:17 Dose: 20 mg Documented By: EFE Ondansetron HCl (Ondansetron Hcl 4 Mg/2 Ml Vial) 4 mg IVPUSH Q8H PRN PRN Reason: Nausea and Vomiting Last Admin: 08/06/22 13:59 Dose: 4 mg Documented By: ROCIO Oxycodone HCl (Oxycodone Hcl Immed Release 5 Mg Tablet) 5 mg PO Q4H PRN PRN Reason: Pain, Moderate (Pain Scale 4-6 Last Admin: 08/08/22 00:05 Dose: 5 mg Documented By: EFE Pharmacy Consult (Consult Rx Perform Med Rec) 1 each MISCELLANE ONCE PRN PRN Reason: Consult order Sodium Chloride (0.9 % Sodium Chloride Flush 3 Ml Syringe) 3 ml IVFLUSH QSHIFT [facility] Last Admin: 08/08/22 07:43 Dose: 3 ml Documented By: PEE Labs CBC & Chem 7: 08/05/22 05:42 08/05/22 05:42 Labs: Laboratory Results - last 24 hr 08/07/22 08/07/22 08/08/22 16:30 19:40 07:03 POC Glucose 254 H 215 H 195 H 08/08/22 10:56 POC Glucose 218 H Assessment and Plan (1) Metastasis from pancreatic cancer: Status: Acute Plan 71-year-old female with a past medical history of hypertension, hyperlipidemia, diabetes, hypothyroidism, anemia, history of metastatic pancreatic cancer with peritoneal carcinomatosis, ascites, anxiety, depression from the nephrology office for presented to the hospital from the nephrology office for the worsening renal insufficiency. Patient's blood pressure was noted to be on the soft side in the ER; received IV fluids. Admitted to the hospital for further management. Abdominal pain 2/2 Metastatic pancreatic cancer/peritoneal carcinomatosis/ ascites: post therapeutic paracentesis on 07/31/2022-removed 7.[address] Beverly- has had chemotherapy about 2 weeks ago, currently on Decadron. Oxycodone for pain as needed continue prn paracentesis Hypotension presumed to be secondary to volume depletion/ hypoalbuminemia blood pressure improved. post IV fluids and IV albumin. Paracentesis negative for SBP. continue to monitor blood pressures UTI cultures resulted mixed moises. Discontinued IV antibiotics. Leukocytosis Patient's WBC noted to be 23 with no signs of infection. Likely secondary to steroid usage TONNY on CKD: Likely prerenal. Resolved. Chronic medical conditions: History of hypothyroidism: Levothyroxine History of hypertension: Home lisinopril, atenolol on hold secondary to soft blood pressures History of diabetes: Insulin sliding scale. Metformin on hold History of hyperlipidemia: Continue statin History of anxiety: Ativan p.r.n. History of glaucoma: Continue home eye drops DVT prophylaxis: Patient on Lovenox Code status: Full code reason for continued hospitalization:appealing discharge Quality Stroke Does the patient have a stroke diagnosis?: No VTE Prior VTE?: No VTE Risk Level:: Medical - moderate - high VTE Device Contraindication: Treatment Not Indicated VTE Drug Contraindication: N/A - Med Ordered
[2022-08-08] MEDS: Acetaminophen 325 MG TABLET 650 MG PO (11:53)
--- NOTE | 2022-08-08 13:52 | MHC.CM.PN ---
CM RECEIVED MESSAGE FROM LANDSCAPE GARDENER W/STATUS OF APPEAL, REGARDING APPEALPT IS FINANCIALLY RESPONSIBLE FOR HOSPITAL STAY STARTING 08/09/22 AT 12PM. CM MET W/PT AND WHO WAS AT BEDSIDE AND THEY ARE AWARE PT HAS LOST APPEAL AND THAT FINANCIAL RESPONSABILITY BEGINS TOMORROW AT NOON, PER HE WILL INSTRUMENT AND CONTROLS TECHNICIAN PT BETWEEN 10:30-11AM TOMORROW 08/09.
[2022-08-08 14:52] VITALS: BP 112/69; PULSE 86; RESP 18; TEMP 37.1; O2SAT 96
[2022-08-08 15:15] VITALS: BP 120/57; PULSE 80; RESP 18; TEMP 36.4; O2SAT 97
[2022-08-08 16:36] LABS: Glucose, Whole Blood 198 mg/dL (60-115)
[2022-08-08 19:06] VITALS: BP 126/60; PULSE 82; RESP 18; TEMP 36.3; O2SAT 97
[2022-08-08] MEDS: Atorvastatin Calcium 20 MG TABLET PO (19:38)
[2022-08-08 19:54] LABS: Glucose, Whole Blood 255 mg/dL (60-115)
[2022-08-09] VITALS: BP 127/61; PULSE 82; RESP 18; TEMP 36.7; O2SAT 96
[2022-08-09] MEDS: Melatonin 3 MG TABLET 6 MG PO (00:56)
[2022-08-09] MEDS: oxyCODONE HCl Immed Release 5 MG TABLET PO ×2 (00:56→07:57)
[2022-08-09] MEDS: guaiFENesin 200 MG/10 ML 10 ML LIQUID PO ×2 (03:00→10:39)
[2022-08-09 03:35] VITALS: BP 129/64; PULSE 78; RESP 18; TEMP 36.8; O2SAT 96
[2022-08-09] MEDS: Omeprazole 20 MG CAPSULE.DR PO (05:02)
[2022-08-09] MEDS: Levothyroxine Sodium 50 MCG TABLET PO (05:02)
[2022-08-09 07:19] VITALS: BP 142/68; PULSE 64; RESP 18; TEMP 36.6; O2SAT 97
[2022-08-09 07:31] LABS: Glucose, Whole Blood 250 mg/dL (60-115)
[2022-08-09] MEDS: dexAMETHasone 4 MG TABLET PO (07:48)
[2022-08-09] MEDS: Enoxaparin Sodium 30 MG/0.3 ML SYRINGE SUBCUT (07:48)
[2022-08-09] MEDS: Insulin Lispro 100 UNIT/ML 3 ML VIAL SUBCUT (07:48)
[2022-08-09] MEDS: Multivitamin TABLET 1 TAB PO (07:48)
[2022-08-09] MEDS: 0.9 % Sodium Chloride Flush 3 ML SYRINGE IVFLUSH (07:49)
[2022-08-09] MEDS: Lidocaine 4 % Patch ADH..PATCH 1 PATCH TRANSDERMA (07:49)
--- NOTE | 2022-08-09 08:55 | P.DS_ITS ---
DS: Providers Provider Date of Service: 08/09/22 Date of admission: 07/28/22 06:04 Primary care physician: Sammy Cordova PA-C Consults: 07/30/22 09:32 Consult to Nephrology Routine Consulting Provider: Praneeth Keen Reason for consultation: Renal failure Has provider been notified: No DS: Diagnosis Discharge Diagnosis (1) Metastasis from pancreatic cancer: Status: Acute DS: Summary Hospital Course Hospital Course: Admission note HPI This is a 71-year-old female with pertinent history of metastatic pancreatic cancer with peritoneal carcinomatosis, jmu-qzzrsda-sltmgtnfw diabetes mellitus, essential hypertension, generalized anxiety disorder, hypothyroidism who presents to the emergency department at the behest of her crime lab technician for evaluation and management of low blood pressure.? Patient was sent to crime lab technician's office by her oncologist due to progressive renal insufficiency with hypokalemia.? At the crime lab technician's office, patient's blood pressure was found to be low and she said was sent to the ER for further evaluation and management.? Patient states her blood pressure is usually within normal limits with systolic around 120 sclerae she denies dizziness or lightheadedness.? Does endorse generalized abdominal pain, nonradiating, constant.? No fever or chills.? Denies burning micturition but does have urinary hesitancy.? No chest discomfort, shortness of breath, cough, changes in bowel habits Hospital course The patient presented for worsening kidney function, hypotension and concern for urosepsis -which was ruled out. Treated with IV antibiotic of ceftriaxone and the urine culture grew mixed bacteria antibiotic was discontinued. Noted to have acute kidney injury that was treated with IV fluid as Nephrology team evaluated the patient and recommended IV albumin along with the fluids with good response as her kidney function improved back to baseline with creatinine of 0.7. Blood pressure improved back to normal readings once Lisinopril and Atenolol discontinued. reported abdominal pain from Metastatic pancreatic cancer and peritoneal carcinomatosis. had Paracentesis done with removal of 7.6 L of fluids. kept on home dose Decadron with a plan to follow with dr Beverly after discharge as outpatient to discuss options of treatment. pain controlled with Oxycodone as needed. For hypothyroidism Synthroid was continued, for diabetes insulin was continued, for hyperlipidemia she was continued on statin. For a anxiety Ativan was given as needed. Stop taking Atenolol and Lisinopril OXycodone as needed for pain To follow up as outpatient with dr Beverly for chemotherapy planning. Time Spent with Patient Time attestation: Total time spent providing and/or coordinating discharge services: Discharge coordination time: Greater than 30 minutes Quality: Safe Use of Opioids Does Pt have an Active Cancer Diagnosis on the Problem List?: Yes Opioid Measure Date for [facility] Report: 07/10/22 Opioid Measure Time for [facility] Report: 09:26 Quality: Stroke Does the patient have a stroke diagnosis?: No Physical Exam Vital Signs: Vital Signs: Last Vital Signs Temp 97.8 F 08/09/22 07:19 Pulse 64 08/09/22 07:19 Resp 18 08/09/22 07:19 BP 142/68 H 08/09/22 07:19 Pulse Ox 97 08/09/22 07:19 O2 Del Method 08/09/22 07:19 O2 Flow Rate 2 08/08/22 04:00 BMI result Body Mass Index 26.0 General: AO X 3, no acute distress Resp: CTA bilateral, no accessory muscles used CVS: S1,S2,RRR GI: soft, non tender, distended Neuro: motor grossly intact, alert Psych: appropriate affect, appropriate insight DS: Data Data Completed and Pending Labs on day of discharge: Laboratory Results - last 24 hr 08/08/22 08/08/22 08/08/22 10:56 15:18 19:08 POC Glucose 218 H 198 H 255 H 08/09/22 07:23 POC Glucose 250 H Discharge Plan Discharge Anticipated Discharge Date/Time: 08/06/22 10:20 Patient Disposition: Home, Self-Care Discharge Diagnosis: Acute kidney injury Hypotension Urine infection Referrals: Sammy Cordova PA-C [Primary Care Provider] - 1 Week Discharge Medications: Continued methenamine hippurate 1 gram tablet 1 g PO DAILY 90 Days Qty: 90 3RF metformin 500 mg tablet extended release 24 hr 1,000 mg PO BID 30 Days Qty: 120 4RF (DME) FreeStyle Lite Strips Strip See Rx Instructions .Route Qty: 100 3RF Rx Instructions: As directed (DME) blood-glucose meter [FreeStyle [place] Lite] Kit See Rx Instructions .Route Qty: 1 0RF Rx Instructions: As directed (DME) lancets [FreeStyle Lancets] 28 gauge misc See Rx Instructions .Route Qty: 100 3RF Rx Instructions: As directed hydrocortisone 2.5 % cream 1 appl topical TID PRN (Reason: itching) Qty: 28 0RF fluticasone propionate [Flonase Allergy Relief] 50 mcg/actuation spray,suspension 2 spray intranasal DAILY PRN (Reason: Allergic Symptoms) Rx Instructions: administer into each nostril dexamethasone 4 mg Tablet 4 mg PO BID Qty: 30 4RF Rx Instructions: for 2 days after chemo Multi-Vitamins with Iron Tablet,Chewable 1 tab PO DAILY Qty: 90 3RF Rx Instructions: administer with a meal ondansetron HCl 4 mg Tablet 4 mg PO Q8H Qty: 50 4RF lorazepam 0.5 mg tablet 0.5 mg PO BEDTIME PRN (Reason: anxiety) Qty: 30 2RF levothyroxine 50 mcg tablet 50 mcg PO DAILY@0600 pantoprazole 40 mg tablet,delayed release (DR/EC) 40 mg PO DAILY@0630 potassium chloride [K-Tab] 10 mEq tablet extended release 10 meq PO DAILY acetaminophen-codeine 300-30 mg tablet 1 tab PO Q8H PRN (Reason: Pain) oxycodone 5 mg tablet 5 mg PO Q8H PRN (Reason: pain) 7 Days Qty: 21 0RF Rx Instructions: Partial Fill upon patient request. simvastatin 40 mg tablet 40 mg PO BEDTIME 90 Days Qty: 90 1RF latanoprost 0.005 % drops 1 drp ophthalmic (eye) BEDTIME Discontinued lisinopril 2.5 mg tablet 2.5 mg PO DAILY Qty: 90 2RF ciprofloxacin HCl 250 mg tablet 250 mg PO DAILY 30 Days Qty: 30 5RF atenolol 25 mg tablet 12.5 mg PO DAILY Qty: 15 3RF nitrofurantoin macrocrystal 100 mg capsule 100 mg PO BID 7 Days Qty: 14 0RF Rx Instructions: must administer with a meal/food Discharge Orders: Discharge Order (Routine); Ordered 08/06/22 Ordered By: Hernan Pop Diet: Advance to usual diet Activity on Discharge: As tolerated Stand Alone Forms: Patient Portal Discharge page Care Plan Goals: Read below Health Concerns: Read below Plan of Treatment: Read below Assessment: You were admitted to the hospital for worsening kidney function and low blood pressure readings associated with urine infection. treated with IV fluids and hold blood pressure medications along with antibiotics as you were followed by nephrology team. cancer related pain was controlled by oral oxycodone. Stop taking Atenolol and Lisinopril OXycodone as needed for pain To follow up as outpatient with dr Beverly for chemotherapy planning.
--- NOTE | 2022-08-09 11:17 | MHC.CM.PN ---
PT WILL DC HOME TODAY WITH NO SERVICES PROVIDING TRANSPORT
== END 2022-08-09 11:16 | disposition home or self-care (01) | DRG 375 ==
LOC: HO.ED 07-28 02:10 → HO.EDOVER 07-28 06:09 → HO.S3 07-28 11:16
PROVIDERS: Hospitalist; Internal Medicine; Internal Medicine Nephrology; Nurse Practitioner Acute Care; Radiology Diagnostic Radiology; Student in an Organized Health Care Education/Training Program; Admitting Provider Student in an Organized Health Care Education/Training Program; Emergency Provider Internal Medicine; PCP Physician Assistant; Visit Provider Internal Medicine
PROC: 0W9G3ZZ Drainage of Peritoneal Cavity, Percutaneous Approach (ICD-10-PCS; principal; 2022-07-31 09:00)
DX: C78.6 Secondary malignant neoplasm of retroperitoneum and peritoneum (principal); C25.9 Malignant neoplasm of pancreas, unspecified; N17.9 Acute kidney failure, unspecified; E87.1 Hypo-osmolality and hyponatremia; R18.0 Malignant ascites; I12.9 Hypertensive chronic kidney disease with stage 1 through stage 4 chronic kidney disease, or unspecified chronic kidney disease; G89.3 Neoplasm related pain (acute) (chronic); E11.22 Type 2 diabetes mellitus with diabetic chronic kidney disease; D63.0 Anemia in neoplastic disease; D50.9 Iron deficiency anemia, unspecified; D63.1 Anemia in chronic kidney disease; E03.9 Hypothyroidism, unspecified; F41.1 Generalized anxiety disorder; E78.3 Hyperchylomicronemia; I95.89 Other hypotension; E88.09 Other disorders of plasma-protein metabolism, not elsewhere classified; F41.9 Anxiety disorder, unspecified; N18.30 Chronic kidney disease, stage 3 unspecified; D72.829 Elevated white blood cell count, unspecified; E11.65 Type 2 diabetes mellitus with hyperglycemia; E87.6 Hypokalemia; Z20.822 Contact with and (suspected) exposure to COVID-19; Z23 Encounter for immunization; Z87.440 Personal history of urinary (tract) infections; Z87.891 Personal history of nicotine dependence; Z88.0 Allergy status to penicillin; Z88.1 Allergy status to other antibiotic agents; Z88.2 Allergy status to sulfonamides; Z79.52 Long term (current) use of systemic steroids; Z79.84 Long term (current) use of oral hypoglycemic drugs; Z79.899 Other long term (current) drug therapy
CPT/HCPCS: 36415; 49083; 71045; 74176; 80048; 80053; 81001; 81003; 82272; 82947; 83036; 83605; 83690; 83735; 83986; 84300; 85007; 85025; 85027; 85610; 86850; 86900; 86901; 86923; 87040; 87070; 87073; 87086; 87205; 87493; 87635; 89051; 90686; 93005; 97110; 97116; 97162; 97530; 99284; J0692; J0696; J1650; J2405; J8540; P9016; P9047

== ENCOUNTER 2022-08-09 15:03 | Emergency (ER) | payer MEDICARE, SELFPAY ==
--- NOTE | ~2022-08-09 | XR_ITS ---
EXAMINATION: XR CHEST CLINICAL INFORMATION: Pain COMPARISON: 07/28/2022 TECHNIQUE: Frontal view of the chest was obtained. FINDINGS: CT compatible right chest wall port terminates over the lower SVC. The lungs are well expanded. Small left-sided pleural effusion is increased from prior. No dense consolidation. No edema. No pneumothorax. The cardiomediastinal silhouette is unchanged, with a calcified aorta. XR/XR chest 1V IMPRESSION: Small left pleural effusion is increased from prior.
[2022-08-09 15:21] VITALS: BP 142/84; BP 146/67; PULSE 81; PULSE 86; RESP 18; O2SAT 96; BMI 27.6
[2022-08-09 15:27] VITALS: BP 146/67; PULSE 76; RESP 18; O2SAT 98
--- NOTE | 2022-08-09 16:25 | ED.WEAKNESS ---
HPI - Weakness General Chief complaint: Weakness Stated complaint: WEAKNESS Time Seen by Provider: 08/09/22 15:29 Source: patient, EMS and old records reviewed History of Present Illness HPI Narrative: The patient is a 69-year-old female who complains of generalized weakness. Patient states she was discharged from the hospital this morning, and feels that she was ?let go too soon?. She has a history of acute renal failure, history of sepsis, pancreatic adenocarcinoma, and recurrent urinary tract infections. Currently, the patient complains of swelling of her legs bilaterally and overall general weakness. States she had called 911 2 times today MD Complaint: generalized weakness Onset (ago): week(s) Duration: constant and progressively worsening Location: generalized Severity: moderate Related Data Home Medications Medication Instructions Recorded Confirmed latanoprost 0.005 % eye drops 1 drp ophthalmic (eye) BEDTIME 02/08/21 07/28/22 fluticasone propionate 50 2 spray intranasal DAILY PRN 06/06/22 07/28/22 mcg/actuation nasal Allergic Symptoms spray,suspension (Flonase Allergy Relief) acetaminophen 300 mg-codeine 30 mg 1 tab PO Q8H PRN Pain 07/28/22 07/28/22 tablet levothyroxine 50 mcg tablet 50 mcg PO DAILY@0600 07/28/22 07/28/22 pantoprazole 40 mg tablet,delayed 40 mg PO DAILY@0630 07/28/22 07/28/22 release potassium chloride 10 mEq 10 meq PO DAILY 07/28/22 07/28/22 tablet,extended release (K-Tab) Previous Rx's Medication Instructions Recorded hydrocortisone 2.5 % topical cream 1 appl topical TID PRN itching #28 12/18/20 grams methenamine hippurate 1 gram tablet 1 g PO DAILY 90 days #90 tabs 03/22/22 metformin 500 mg tablet,extended 1,000 mg PO BID 30 days #120 tabs 06/04/22 release 24 hr simvastatin 40 mg tablet 40 mg PO BEDTIME 90 days #90 tabs 06/12/22 dexamethasone 4 mg tablet 4 mg PO BID #30 tabs 06/27/22 blood sugar diagnostic (FreeStyle #100 ea 07/16/22 Lite Strips) blood-glucose meter (FreeStyle #1 ea 07/16/22 [place] Lite kit) lancets 28 gauge (FreeStyle #100 ea 07/16/22 Lancets) pediatric [id number] 1 tab PO DAILY #90 tabs 07/18/22 (Multi-Vitamins with Iron chewable tablet) ondansetron HCl 4 mg tablet 4 mg PO Q8H #50 tabs 07/20/22 lorazepam 0.5 mg tablet 0.5 mg PO BEDTIME PRN anxiety #30 07/26/22 tabs oxycodone 5 mg tablet 5 mg PO Q8H PRN pain 7 days #21 08/06/22 tabs melatonin 3 mg tablet 6 mg PO BEDTIME PRN Insomnia #30 08/09/22 tabs Allergies Allergy/AdvReac Type Severity Reaction Status Date / Time amoxicillin [From Augmentin] Allergy Intermediate rash Verified 07/27/22 16:25 cefuroxime [From CEFTIN] Allergy Intermediate RASH Verified 07/27/22 16:25 clavulanic acid Allergy Intermediate rash Verified 07/27/22 16:25 [From Augmentin] doxycycline [DOXYCYCLINE] Allergy Intermediate HIVES Verified 07/27/22 16:25 Sulfa (Sulfonamide Allergy Intermediate unknown Verified 07/27/22 16:25 Antibiotics) FORMERLY [facility], [facility] Past Medical History Medical History Acute sinusitis Cardiac arrhythmia Chest pain Diabetes Dysuria Dysuria Flank pain HTN (hypertension) Left knee pain Post-menopausal Recurrent UTI Rib pain on right side Sinusitis Urinary frequency Urinary tract infection Yeast infection of the vagina Surgical History H/O: hysterectomy History of cardiac radiofrequency ablation Family History Family History Father CVD (cardiovascular disease) Mother No problems noted. Social History Social History Household Members: Spouse Housing: House Do you presently have visiting nurse or other home services: No Alcohol intake: never Patient Tobacco Use Status: Former Tobacco user Tobacco use type: Cigarette e-Cigarette/Vaping Use: Never Used Second Hand Smoke Exposure: Yes Use of substances other than those prescribed or required for medical reasons: No Advance Directives: Yes Advance Directives Information Provided: No Advance Directives on File: No Advance Directives Date on File: 06/21/22 service: No Current occupational status: retired Current occupation: rt handed Cognitive needs: No Hearing needs: No Vision needs: Yes Physical Exam Vital Signs: Vital Signs: Last Vital Signs Temp 97.3 F 08/09/22 23:59 Pulse 67 08/09/22 23:59 Resp 18 08/09/22 15:27 BP 160/70 H 08/09/22 23:59 Pulse Ox 99 08/09/22 23:59 O2 Del Method 08/09/22 23:59 BMI result Body Mass Index 27.6 Mild systolic hypertension Const: General: cooperative, comfortable and no acute distress Nutritional Appearance: overweight Orientation/consciousness: patient oriented x3 HEENT: Head: Yes normal to inspection, Yes normocephalic and Yes atraumatic Ears: hearing grossly normal bilaterally and external ears normal General nose exam: Normal external nose present Face and sinus: Yes normal facial exam and Yes face symmetric Mouth: Normal oral and palatal mucosa present Eyes: Eyelids: Yes eyelids normal Conjunctivae: conjunctivae normal Sclerae: sclerae normal Pupils: Equal, round and reactive pupils present EOM: EOMs intact bilaterally Neck: Neck: Yes full ROM Chest: Chest palpation & inspection: normal inspection of the chest Resp: Effort & Inspection: normal respiratory effort, no audible wheezes and no cough Cardio: Rate: regular rate Rhythm: regular rhythm GI: Inspection: Yes normal to inspection and No distended Palpation (GI): nontender Back/Spine/Pelvis: Cervical Spine: cervical ROM normal and No pain with cervical ROM Skin: General skin exam: no mottling and no pallor Neuro: General: patient oriented x3 Cranial nerves: Yes Equal, round and reactive pupils present Extrem: General: No no pedal edema, Yes edema and Yes pedal edema Right upper extremity: normal to inspection Left upper extremity: normal to inspection MDM - Weakness MDM Narrative Medical decision making narrative: 71-year-old female discharged from the hospital this morning who came back to the emergency department tonight because she was unable to ambulate. Laboratory studies are documented below. There are no significant acute changes. The patient will be observed in the emergency department overnight and physical therapy/Case Management evaluations to take place in the morning. Lab Data Attestation: I reviewed the patient's lab results. Lab results narrative: WBC slightly elevated, somewhat anemic, not significantly changed from laboratory studies obtained in the last 24 hours as an inpatient Result diagrams: 08/09/22 20:12 08/09/22 20:12 Labs: Lab Results 08/09/22 08/09/22 08/09/22 Range/Units 20:12 20:12 20:12 WBC 13.8 H (4.8-10.8) X10*3/uL RBC 3.90 L (4.20-5.50) X10*6/uL Hgb 10.2 L (12.0-16.0) g/dl Hct 31.7 L (37.0-47.0) % MCV 81.3 (80.0-98.0) fL MCH 26.2 L (27.0-33.0) pg MCHC 32.2 (31.0-35.0) g/dl RDW 20.8 H (11.0-16.0) % Plt Count 309 (160-400) X10*3/uL MPV 9.1 L (9.4-12.3) fL Immature Gran % (Auto) 1.2 H (0.0-0.4) % Neut % (Auto) 76.2 H (45-73) % Lymph % (Auto) 13.2 L (20-40) % [place] % (Auto) 9.2 (2-11) % Eos % (Auto) 0.1 (0-4) % Baso % (Auto) 0.1 (0-2) % Lymph # (Auto) 1.8 (1.2-4.9) X10*3/uL Baldwin # (Auto) 1.3 H (0.1-1.2) X10*3/uL Eos # (Auto) 0.0 (0.0-0.4) X10*3/uL Baso # (Auto) 0.0 (0.0-0.2) X10*3/uL Abs Immat Gran (auto) 0.17 H (0.00-0.03) X10*3/uL Absolute Neuts (auto) 10.5 H (2.0-8.3) x10*3/uL Absolute Nucleated RBC 0.000 (0.0-0.012) X10*3/uL Nucleated RBC % (auto) 0.0 (0.0-0.2) /100WBC Sodium 136 (135-145) mmol/L Potassium 4.4 (3.3-5.1) mmol/L Chloride 98 (96-108) mmol/L Carbon Dioxide 25 (22-29) mmol/L Anion Gap 17 (12-20) BUN 17 H (9-16) mg/dL Creatinine 0.71 (0.5-1.4) mg/dL Estim Creat Clear Calc 67.4 Estimated GFR > 60 Random Glucose 272 H (60-115) mg/dL Calcium 9.4 (8.4-10.2) mg/dL Troponin I High Sens 14.8 (<3.5-17.0) ng/L Discharge Plan Discharge Clinical Impression: Weakness, Multifactorial gait disorder Patient Disposition: Still a Patient Prescriptions: No Action methenamine hippurate 1 gram tablet 1 g PO DAILY 90 Days Qty: 90 3RF metformin 500 mg tablet extended release 24 hr 1,000 mg PO BID 30 Days Qty: 120 4RF (DME) FreeStyle Lite Strips Strip See Rx Instructions .Route Qty: 100 3RF Rx Instructions: As directed (DME) blood-glucose meter [FreeStyle [place] Lite] Kit See Rx Instructions .Route Qty: 1 0RF Rx Instructions: As directed (DME) lancets [FreeStyle Lancets] 28 gauge misc See Rx Instructions .Route Qty: 100 3RF Rx Instructions: As directed hydrocortisone 2.5 % cream 1 appl topical TID PRN (Reason: itching) Qty: 28 0RF fluticasone propionate [Flonase Allergy Relief] 50 mcg/actuation spray,suspension 2 spray intranasal DAILY PRN (Reason: Allergic Symptoms) Rx Instructions: administer into each nostril dexamethasone 4 mg Tablet 4 mg PO BID Qty: 30 4RF Rx Instructions: for 2 days after chemo Multi-Vitamins with Iron Tablet,Chewable 1 tab PO DAILY Qty: 90 3RF Rx Instructions: administer with a meal ondansetron HCl 4 mg Tablet 4 mg PO Q8H Qty: 50 4RF lorazepam 0.5 mg tablet 0.5 mg PO BEDTIME PRN (Reason: anxiety) Qty: 30 2RF levothyroxine 50 mcg tablet 50 mcg PO DAILY@0600 pantoprazole 40 mg tablet,delayed release (DR/EC) 40 mg PO DAILY@0630 potassium chloride [K-Tab] 10 mEq tablet extended release 10 meq PO DAILY acetaminophen-codeine 300-30 mg tablet 1 tab PO Q8H PRN (Reason: Pain) oxycodone 5 mg tablet 5 mg PO Q8H PRN (Reason: pain) 7 Days Qty: 21 0RF Rx Instructions: Partial Fill upon patient request. melatonin 3 mg Tablet 6 mg PO BEDTIME PRN (Reason: Insomnia) Qty: 30 0RF simvastatin 40 mg tablet 40 mg PO BEDTIME 90 Days Qty: 90 1RF latanoprost 0.005 % drops 1 drp ophthalmic (eye) BEDTIME
--- NOTE | 2022-08-09 17:35 | PC.NURSE ---
Pt ambulated to bathroom using walker with steady gait. Requesting food, sandwich and crackers provided.
[2022-08-09 20:00] VITALS: BP 142/61; PULSE 77; TEMP 36.3; O2SAT 99
[2022-08-09 20:21] LABS: MANUAL DIFF FLAG NO
[2022-08-09 20:23] LABS: Basophils Percent Auto 0.1 % (0-2); Eosinophils Percent Auto 0.1 % (0-4); Hematocrit 31.7 % (37.0-47.0); Hemoglobin 10.2 g/dl (12.0-16.0); Imm Gran Abs Auto 0.17 X10*3/uL (0.00-0.03); Imm Gran Pct Auto 1.2 % (0.0-0.4); Lymphocytes Absolute Auto 1.8 X10*3/uL (1.2-4.9); Lymphocytes Percent Auto 13.2 % (20-40); Mean Corpuscular HGB Conc 32.2 g/dl (31.0-35.0); Mean Corpuscular Hemoglobin 26.2 pg (27.0-33.0); Mean Corpuscular Volume 81.3 fL (80.0-98.0); Mean Platelet Volume 9.1 fL (9.4-12.3); Monocytes Absolute Auto 1.3 X10*3/uL (0.1-1.2); Monocytes Percent Auto 9.2 % (2-11); Neutrophils Absolute Auto 10.5 x10*3/uL (2.0-8.3); Neutrophils Percent Auto 76.2 % (45-73); Platelet Count 309 X10*3/uL (160-400); Red Cell Distribution Width 20.8 % (11.0-16.0); White Blood Count 13.8 X10*3/uL (4.8-10.8)
[2022-08-09 20:41] LABS: Troponin-I High Sensitivity 14.8 ng/L (<3.5-17.0)
[2022-08-09 21:43] LABS: Anion Gap 17 (12-20); Blood Urea Nitrogen 17 mg/dL (9-16); Calcium 9.4 mg/dL (8.4-10.2); Carbon Dioxide 25 mmol/L (22-29); Chloride 98 mmol/L (96-108); Creatinine Clr Calc Pharmacy 67.4; Estimated Glomerular Filt Rate > 60; Glucose Random 272 mg/dL (60-115); Potassium 4.4 mmol/L (3.3-5.1); Sodium 136 mmol/L (135-145)
--- NOTE | 2022-08-09 22:08 | PC.NURSE ---
Case management at bedside.
--- NOTE | 2022-08-09 22:38 | MHC.CM.ED ---
CM met with patient at request of Dr. Villasenor. A&Ox3. Speech very tangential. Very chatty. Limited STM. Was hospitalized at [facility] 07/28-08/09. Appealed the discharge to Medicare, as patient did not feel ready for discharge. Appeal declined and pt d/c home today 08/09. Pt had PT while in [facility] and according to notes, PT recommended home PT. Pt was d/c without services. Pt tells CM she was not offered home PT or STR. Pt states she fell twice today at home and had to call 911 twice, as she could not get up. Pt states her feet are so swollen that she cannot feel them. Pt has pitting edema to both feet. Pt has pancreatic CA with mets. Diagnosed in April. Pt unsure of prognosis. Had paracentesis while hospitalized. Has ongoing CA treatments with Dr. Beevrly. 3rd CA treatment scheduled for 08/15, but pt unsure of time. CM to call Dr. Beverly's office in the morning to verify appointment. If STR recommended, ? arrange chemo appointment while in STR. PT pending. Pt requesting STR in [place].Referrals placed. Pt lives with on second floor of a 2 family home. Uses a walker. Has no services. HCP on file. Pt states she is homebound, except for chemo appointments. CM to follow for discharge planning.
[2022-08-09 23:59] VITALS: BP 160/70; PULSE 67; TEMP 36.3; O2SAT 99
[2022-08-10] VITALS (7 sets, daily range): BP systolic 102–139; BP diastolic 57–71; PULSE 77–91; RESP 18; O2SAT 97–99
[2022-08-10] MEDS: guaiFEN/Codeine SF 200/20/10ML 10 ML LIQUID PO (03:36)
[2022-08-10] MEDS: Acetaminophen 325 MG TABLET 650 MG PO (03:36)
[2022-08-10 03:54] LABS: COVID-19 Test Positive (Negative)
[2022-08-10 07:00] LABS: Glucose, Whole Blood 151 mg/dL (60-115)
--- NOTE | 2022-08-10 08:49 | MHC.CM.ED ---
Pt tested COVID + 08/09 - PT is suggesting STR - referrals have been made: will update STR on COVID + status and need for chemo.
[2022-08-10 09:15] LABS: Glucose, Whole Blood 167 mg/dL (60-115)
--- NOTE | 2022-08-10 09:23 | PC.NURSE ---
rt and oriented X2. keeps asking about her who is in room 3. She is Covid +, complaining of mild cough and think phlegm, denies other symptoms. VS WNL.
--- NOTE | 2022-08-10 11:34 | PHA.MEDREC ---
Pharmacy Consult ? Medication Reconciliation Pharmacy has completed the medication reconciliation.
[2022-08-10] MEDS: atenoloL 25 MG TABLET 12.5 MG PO (11:56)
[2022-08-10] MEDS: metFORMIN HCl ER 500 MG TAB.ER.24H 1000 MG PO (11:57)
[2022-08-10] MEDS: Levothyroxine Sodium 50 MCG TABLET PO (11:57)
--- NOTE | 2022-08-10 12:01 | MHC.CM.ED ---
Pt has accepted an offer at [facility] transport today at 3:30pm. Pt's spouse is presently in ED 3 receiving tx and was made aware of pt's d/c plan. Pt is COVID + and will have a private room at [facility].
--- NOTE | 2022-08-10 12:02 | PC.NURSE ---
pt. a&a x4. sitting on chair. denies pain. gave her daily meds. VS SHAWN
[2022-08-10 13:33] LABS: Glucose, Whole Blood 190 mg/dL (60-115)
[2022-08-10] MEDS: estradioL 0.5 MG TABLET PO (14:25)
--- NOTE | 2022-08-10 16:59 | PC.NURSE ---
pt was inc of lg amount of stool ,care given .
[2022-08-14 09:00] LABS: VBG Base Excess 1.3 mmol/L; VBG HCO3 25 mmol/L (22-26); VBG pCO2 39 mmHg; VBG pH 7.41 (7.32-7.43); VBG pO2 44 mmHg
== END 2022-08-10 19:00 | disposition skilled nursing facility (03) ==
PROVIDERS: Internal Medicine; Emergency Provider Emergency Medicine; PCP Physician Assistant
DX: R53.1 Weakness (principal); R26.89 Other abnormalities of gait and mobility; Z20.822 Contact with and (suspected) exposure to COVID-19; Z79.899 Other long term (current) drug therapy; Z87.891 Personal history of nicotine dependence
CPT/HCPCS: 36415; 71045; 80048; 82803; 82947; 84484; 85025; 87635; 97162; 99284; 99285

== ENCOUNTER 2022-08-13 08:59 | Observation (INO) | payer MEDICARE, SELFPAY ==
--- NOTE | ~2022-08-13 | XR_ITS ---
EXAMINATION: XR CHEST CLINICAL INFORMATION: Chest pain and shortness of breath COMPARISON: 08/10/2022 TECHNIQUE: Frontal view of the chest was obtained. FINDINGS: Right chest wall medication port with tip of IJ catheter located at level of distal superior vena cava. Lungs are adequately expanded. Left lateral costophrenic sulcus remains blunted from a small pleural effusion, and there appears to be minimal atelectasis at the left lateral base. No airspace disease or pulmonary edema. Cardiac silhouette has normal size and contour. The visualized bones are intact. XR/XR chest 1V IMPRESSION: * No new cardiopulmonary findings compared to prior from 08/10/2022. * Persistent small left pleural effusion and mild lateral basilar atelectasis.
--- NOTE | ~2022-08-13 | CT_ITS ---
EXAMINATION: CT ABDOMEN AND PELVIS WITHOUT CONTRAST CLINICAL INFORMATION: Falls. Abdominal pain. Ascites. COMPARISON: CT scans dating between July 28, 2022 and July 27, 2021. TECHNIQUE: Multidetector volumetric imaging was performed from the superior aspect of the liver through the pubic symphysis. Sagittal and coronal reformatted images were obtained on the technologist's workstation. This CT examination was performed using dose optimization techniques as appropriate, variously including the following: *Automated exposure control *Adjustment of mA and/or kV according to patient size (this includes techniques or standardized protocols for targeted exams where dose is matched to indication/reason for exam; i.e. extremities or head) *Use of iterative reconstruction technique DLP: 639 mGy-cm FINDINGS: LUNG BASES: The lung bases appear clear, with no evidence of inflammation or nodules. Coronary arterial and aortic valvular calcification, incompletely assessed. Heart normal in size. LIVER, GALLBLADDER, AND BILIARY TREE: No focal hepatic lesion or biliary ductal dilatation is appreciated. Mild diffuse gallbladder wall thickening, nonspecific. Suspect less than 5 mm gallstones. PANCREAS: Unremarkable appearance. Reported pancreatic cancer not appreciated on the current, limited, noncontrast study. SPLEEN: Unremarkable ADRENAL GLANDS: Unremarkable KIDNEYS AND URETERS: Approximately 2.5 cm or less benign bilateral simple renal cysts for which no further dedicated imaging is indicated. The kidneys otherwise appear unremarkable in size, shape, and attenuation. No hydronephrosis, hydroureter, or calculi seen. BLADDER: Unremarkable GASTROINTESTINAL TRACT: Grossly unremarkable appearance of the stomach and small bowel on this study which was performed without oral or intravenous contrast. Colonic diverticula. No gross evidence of diverticulitis. Unremarkable-appearing distal ileum. No evidence of appendicitis. OMENTUM/PERONEAL CAVITY: Question omental infiltration/caking, similar compared with most recent prior from July 28, 2022. Moderate to large amount of ascites, improved compared with July 28, 2022. ABDOMINAL WALL: Anasarca. No significant hernia is appreciated. LYMPH NODES: No evidence of adenopathy by size criteria. VASCULAR: Atherosclerotic aorta. PELVIC VISCERA: Unremarkable OSSEOUS STRUCTURES: Degenerative changes of the lumbar spine with grade 1 anterolisthesis of L5 on S1. CT/CT abdomen pelvis wo IV con IMPRESSION: Limited by lack of oral and intravenous contrast. Reported pancreatic mass not appreciated on the current, limited, noncontrast study. Moderate to large amount of ascites, improved compared with July 28, 2022. Question omental infiltration/caking, similar compared with most recent prior from July 28, 2022. Cannot exclude malignant involvement. Mild diffuse gallbladder wall thickening, nonspecific. Suspect less than 5 mm gallstones. Anasarca.
--- NOTE | ~2022-08-13 | US_ITS ---
EXAMINATION: ULTRASOUND-GUIDED PARACENTESIS CLINICAL INFORMATION: Ascites. COMPARISON: Previous CT of the abdomen and pelvis from earlier the same day TECHNIQUE: Procedure and risks and benefits including bleeding, infection and low blood pressure were discussed with the patient and informed consent was obtained. The right lower quadrant was prepped and draped in usual sterile fashion. The skin and soft tissues were anesthetized with 1% lidocaine plain. Using ultrasound guidance and a 5 Pashto Yueh needle, access to the ascitic fluid was obtained. 4.2 L of clear yellow fluid was removed. The exam was performed portably in the emergency room. FINDINGS: There is a large amount of ascites. US/US paracentesis abd w/image IMPRESSION: Ultrasound-guided paracentesis.
[2022-08-13 09:44] VITALS: BP 112/92; BP 116/84; PULSE 112; PULSE 98; RESP 20; TEMP 37.1; O2SAT 96; BMI 26.0
--- NOTE | 2022-08-13 09:53 | ED.GENADULT ---
HPI - General Adult General Chief complaint: Abdominal Pain Stated complaint: sob covid + vomit/wheezing Time Seen by Provider: 08/13/22 09:44 Source: patient and EMS Mode of arrival: EMS History of Present Illness HPI narrative: 71-year-old female with a past medical history of metastatic pancreatic cancer on chemotherapy, ascites with therapeutic paracentesis, hypoalbuminemia, peritoneal carcinomatosis, diabetes, HTN, recurrent UTIs, COVID-19 positive on 08/10, presenting to the ED from [facility] c/o chest pain, shortness of breath, cough, abdominal pain, nausea, vomiting, diarrhea, and bilateral lower extremity pitting edema. Patient also reports fall at shelter a few days ago, denies head trauma or LOC. Denies known fever, chills, dysuria/hematuria Onset (ago): day(s) Related Data Home Medications Medication Instructions Recorded Confirmed levothyroxine 50 mcg tablet 1 tab PO DAILY@0600 08/10/22 08/13/22 lorazepam 0.5 mg tablet 0.5 mg PO BEDTIME 08/10/22 08/13/22 metformin 500 mg tablet,extended 500 mg PO DAILY 08/10/22 08/13/22 release 24 hr potassium chloride 10 mEq 2 tab PO DAILY 08/10/22 08/13/22 tablet,extended release acetaminophen 300 mg-codeine 30 mg 1 tab PO Q8H PRN Pain 08/13/22 08/13/22 tablet aluminum-mag hydroxide-simethicone 5 ml PO Q6H PRN Indigestion 08/13/22 08/13/22 400 mg-400 mg-40 mg/5 mL oral susp (Laisha-Lanta) dexamethasone 4 mg tablet 4 mg PO DAILY 08/13/22 08/13/22 fluticasone propionate 50 1 spray intranasal DAILY 08/13/22 08/13/22 mcg/actuation nasal spray,suspension hydrocortisone 2.5 % topical cream 1 appl topical TID PRN Itching 08/13/22 08/13/22 latanoprost 0.005 % eye drops 1 drp ophthalmic (eye) QPM 08/13/22 08/13/22 methenamine hippurate 1 gram tablet 1 tab PO DAILY 08/13/22 08/13/22 multivitamin 1 tab PO DAILY 08/13/22 08/13/22 ondansetron HCl 4 mg tablet 1 tab PO Q8H PRN Nausea 08/13/22 08/13/22 oxycodone 5 mg tablet 1 tab PO TID PRN Pain 08/13/22 08/13/22 pantoprazole 40 mg tablet,delayed 1 tab PO DAILY 08/13/22 08/13/22 release simvastatin 40 mg tablet 40 mg PO BEDTIME 08/13/22 08/13/22 Allergies Allergy/AdvReac Type Severity Reaction Status Date / Time amoxicillin [From Augmentin] Allergy Intermediate rash Verified 07/27/22 16:25 cefuroxime [From CEFTIN] Allergy Intermediate RASH Verified 07/27/22 16:25 clavulanic acid Allergy Intermediate rash Verified 07/27/22 16:25 [From Augmentin] doxycycline [DOXYCYCLINE] Allergy Intermediate HIVES Verified 07/27/22 16:25 Sulfa (Sulfonamide Allergy Intermediate unknown Verified 07/27/22 16:25 Antibiotics) Review of Systems Review of Systems: Constitutional: No Fever, No Chills, No Fatigue, No Malaise ENT/Mouth: No Ear Pain, No Nasal Congestion, No sore throat, No Rhinorrhea, No Swallowing Difficulty Eyes: No Eye Pain, No Swelling, No Redness, No Foreign Body, No Discharge, No Vision Changes Cardiovascular: + Chest Pain, + SOB, No Dyspnea on Exertion, No Orthopnea, No Edema, No Palpitations Respiratory: + Cough, No Sputum, No Wheezing, No Dyspnea Gastrointestinal: + Nausea, + Vomiting, + Diarrhea, No Constipation, + Abdominal pain Genitourinary: No Dysuria, No Urinary Frequency, No Hematuria, No Urinary Incontinence/retention, No Urgency, No Flank Pain, Musculoskeletal: No joint pain, No Myalgias, No Joint Swelling Skin: No Skin Lesions, No rash Neuro: No Weakness, No Numbness, No Loss of Consciousness, No Dizziness, No Headache Yes all other systems are reviewed and are negative Constitutional: Constitutional: Reports as per [facility] Past Medical History Attestation statement: The following information was validated with the patient. Medical History Acute sinusitis Cardiac arrhythmia Chest pain Diabetes Dysuria Dysuria Flank pain HTN (hypertension) Left knee pain Post-menopausal Recurrent UTI Rib pain on right side Sinusitis Urinary frequency Urinary tract infection Yeast infection of the vagina Surgical History H/O: hysterectomy History of cardiac radiofrequency ablation Family History Family History Father CVD (cardiovascular disease) Mother No problems noted. Social History Social History Household Members: Spouse Housing: House Do you presently have visiting nurse or other home services: No Alcohol intake: never Patient Tobacco Use Status: Former Tobacco user Tobacco use type: Cigarette e-Cigarette/Vaping Use: Never Used Second Hand Smoke Exposure: Yes Advance Directives: Yes Advance Directives Information Provided: Yes Advance Directives on File: No Advance Directives Date on File: 06/21/22 service: No Current occupational status: retired Current occupation: rt handed Cognitive needs: No Hearing needs: No Vision needs: Yes Physical Exam ED Vital Signs: Vital Signs - 24 hr 08/13/22 09:44 08/13/22 14:14 Temperature 98.7 F Pulse Rate 98 91 Respiratory Rate 20 12 Blood Pressure 116/84 128/72 Pulse Oximetry 96 98 Oxygen Delivery Method Room Air Room Air BMI result Body Mass Index 26.0 Const General: cooperative and no acute distress Orientation/consciousness: patient oriented x3 Limitations: no limitations HENMT Head: Yes normal to inspection and Yes atraumatic Ears: hearing grossly normal bilaterally General nose exam: Normal external nose present Face and sinus: Yes normal facial exam Eyes General: appearance normal, both eyes and all related structures EOM: EOMs intact bilaterally Neck Neck: Yes normal visual inspection and Yes no meningeal signs Resp Effort & Inspection: normal respiratory effort and no respiratory distress Auscultation: clear to auscultation bilaterally and diminished lung sounds bilateral in the lower lung penn Cardio Rate: regular rate Heart sounds: S1 normal heart sound present and S2 normal heart sound present GI Other: + ecchymosis noted to L abdomen Inspection: Yes normal to inspection and Yes distended Palpation (GI): Soft to palpation, Tenderness to palpation present (GI) (Diffusely) with no rebound tenderness, no guarding and not rigid Skin Rashes: no rashes Wounds: no wounds Neuro General: patient oriented x3, tone normal and no meningeal signs Extrem Other: 4+ bilateral LE pitting edema Course Course Course Narrative: 1243--no leukocytosis. H&H at patient's baseline. BNP mildly elevated to 117. Albumin at the lower end of normal > will give 25 GM Albumin repletion XR chest 1V IMPRESSION: *? No new cardiopulmonary findings compared to prior from 08/10/2022. *? Persistent small left pleural effusion and mild lateral basilar atelectasis. ? > will consult Oncology, Dr. Beverly >> Dr. Alston on-call recommended trying some Lasix. Plan will be for admission for diffuse anasarca >> 4.2L removed on bedside paracentesis performed by IR CT abdomen pelvis wo IV con IMPRESSION: Limited by lack of oral and intravenous contrast. ? Reported pancreatic mass not appreciated on the current, limited, noncontrast study. ? Moderate to large amount of ascites, improved compared with July 28, 2022. ? Question omental infiltration/caking, similar compared with most recent prior from July 28, 2022. Cannot exclude malignant involvement. ? Mild diffuse gallbladder wall thickening, nonspecific. Suspect less than 5 mm gallstones. ? Anasarca. -1437--initial troponin 11.7 > will obtain 3 hour repeat Patient admitted for further management -1539--no evidence of SBP. Medical Decision Making MDM Narrative Medical decision making narrative: 71-year-old female with a past medical history of metastatic pancreatic cancer on chemotherapy, ascites with therapeutic paracentesis, hypoalbuminemia, peritoneal carcinomatosis, diabetes, HTN, recurrent UTIs, COVID-19 positive on 08/10, presenting to the ED from [facility] c/o chest pain, shortness of breath, cough, abdominal pain, nausea, vomiting, diarrhea, and bilateral lower extremity pitting edema. Exam vital signs stable, in the ED, decreased breath sounds bibasilarly, abdomen soft, distended, diffusely tender, no rebound or guarding. Bilateral 4+ pitting edema. Concern for fluid overload/anasarca from third-spacing vs CHF vs continue COVID-19 symptoms vs metabolic/infectious etiology. SBP on ddx but lower. Rule out pneumonia/ACS. Lower suspicion for PE/DVT Plan: EKG, labs, UA, CXR, CT abdomen/pelvis, paracentesis, reasses Medical Records Medical records reviewed: Yes I reviewed the patient's medical records. Lab Data Lab results reviewed: Yes I reviewed the patient's lab results. Result diagrams: 08/13/22 10:44 08/13/22 10:44 Labs: Lab Results 08/13/22 08/13/22 08/13/22 Range/Units 10:44 10:44 10:44 WBC 10.7 (4.8-10.8) X10*3/uL RBC 4.05 L (4.20-5.50) X10*6/uL Hgb 10.6 L (12.0-16.0) g/dl Hct 33.4 L (37.0-47.0) % MCV 82.5 (80.0-98.0) fL MCH 26.2 L (27.0-33.0) pg MCHC 31.7 (31.0-35.0) g/dl RDW 21.2 H (11.0-16.0) % Plt Count 195 D (160-400) X10*3/uL MPV 9.3 L (9.4-12.3) fL Immature Gran % (Auto) 0.8 H (0.0-0.4) % Neut % (Auto) 74.4 H (45-73) % Lymph % (Auto) 15.7 L (20-40) % [place] % (Auto) 8.2 (2-11) % Eos % (Auto) 0.8 (0-4) % Baso % (Auto) 0.1 (0-2) % Lymph # (Auto) 1.7 (1.2-4.9) X10*3/uL [place] # (Auto) 0.9 (0.1-1.2) X10*3/uL Eos # (Auto) 0.1 (0.0-0.4) X10*3/uL Baso # (Auto) 0.0 (0.0-0.2) X10*3/uL Abs Immat Gran (auto) 0.09 H (0.00-0.03) X10*3/uL Absolute Neuts (auto) 7.9 (2.0-8.3) x10*3/uL Absolute Nucleated RBC 0.000 (0.0-0.012) X10*3/uL Nucleated RBC % (auto) 0.0 (0.0-0.2) /100WBC PT 11.5 (10.0-13.1) SEC INR 1.0 (0.9-1.1) APTT 30.7 (26.0-36.4) SEC Sodium 140 (135-145) mmol/L Potassium 4.0 (3.3-5.1) mmol/L Chloride 106 (96-108) mmol/L Carbon Dioxide 25 (22-29) mmol/L Anion Gap 13 (12-20) BUN 12 (9-16) mg/dL Creatinine 0.71 (0.5-1.4) mg/dL Estim Creat Clear Calc 65.6 Estimated GFR > 60 Random Glucose 149 H (60-115) mg/dL Calcium 9.0 (8.4-10.2) mg/dL Magnesium 2.1 (1.6-2.6) mg/dL Total Bilirubin 0.6 (0.0-1.0) mg/dL Direct Bilirubin 0.3 (0.0-0.5) mg/dL AST 22 (5-31) U/L ALT 39 H (0-31) U/L Alkaline Phosphatase 102 D (39-117) U/L Troponin I High Sens (<3.5-17.0) ng/L B-Natriuretic Peptide (<100) pg/mL Total Protein 5.4 L (6.5-8.0) g/dL Albumin 3.5 D (3.5-5.0) g/dL Lipase 40 (8-78) U/L Urine Color Urine Appearance Urine pH (5.0-9.0) Ur Specific [place] (1.005-1.025) Urine Protein (Neg-Trace) mg/dL Urine Glucose (UA) (Negative) mg/dL Urine Ketones (Negative) mg/dL Urine Blood (Negative) Urine Nitrite (Negative) Ur Leukocyte Esterase (Negative) Urine RBC (0-2) /HPF Urine WBC (0-5) /HPF Ur Squamous Epith Cells (0-2) /HPF Urine Bacteria (None Seen) Hyaline Casts (0-2) /LPF Peritoneal WBC X10*3/uL Peritoneal RBC X10*6/uL Periton Neutrophils % Periton Lymphocytes % Peritoneal Monocytes % Peritoneal Other Cells % COVID-19 (ARVIN) (Negative) COVID-19 Clin Com 08/13/22 08/13/22 08/13/22 Range/Units 10:44 10:44 10:44 WBC (4.8-10.8) X10*3/uL RBC (4.20-5.50) X10*6/uL Hgb (12.0-16.0) g/dl Hct (37.0-47.0) % MCV (80.0-98.0) fL MCH (27.0-33.0) pg MCHC (31.0-35.0) g/dl RDW (11.0-16.0) % Plt Count (160-400) X10*3/uL MPV (9.4-12.3) fL Immature Gran % (Auto) (0.0-0.4) % Neut % (Auto) (45-73) % Lymph % (Auto) (20-40) % [place] % (Auto) (2-11) % Eos % (Auto) (0-4) % Baso % (Auto) (0-2) % Lymph # (Auto) (1.2-4.9) X10*3/uL [place] # (Auto) (0.1-1.2) X10*3/uL Eos # (Auto) (0.0-0.4) X10*3/uL Baso # (Auto) (0.0-0.2) X10*3/uL Abs Immat Gran (auto) (0.00-0.03) X10*3/uL Absolute Neuts (auto) (2.0-8.3) x10*3/uL Absolute Nucleated RBC (0.0-0.012) X10*3/uL Nucleated RBC % (auto) (0.0-0.2) /100WBC PT (10.0-13.1) SEC INR (0.9-1.1) APTT (26.0-36.4) SEC Sodium (135-145) mmol/L Potassium (3.3-5.1) mmol/L Chloride (96-108) mmol/L Carbon Dioxide (22-29) mmol/L Anion Gap (12-20) BUN (9-16) mg/dL Creatinine (0.5-1.4) mg/dL Estim Creat Clear Calc Estimated GFR Random Glucose (60-115) mg/dL Calcium (8.4-10.2) mg/dL Magnesium (1.6-2.6) mg/dL Total Bilirubin (0.0-1.0) mg/dL Direct Bilirubin (0.0-0.5) mg/dL AST (5-31) U/L ALT (0-31) U/L Alkaline Phosphatase (39-117) U/L Troponin I High Sens 11.7 (<3.5-17.0) ng/L B-Natriuretic Peptide 117 H (<100) pg/mL Total Protein (6.5-8.0) g/dL Albumin (3.5-5.0) g/dL Lipase (8-78) U/L Urine Color Urine Appearance Urine pH (5.0-9.0) Ur Specific [place] (1.005-1.025) Urine Protein (Neg-Trace) mg/dL Urine Glucose (UA) (Negative) mg/dL Urine Ketones (Negative) mg/dL Urine Blood (Negative) Urine Nitrite (Negative) Ur Leukocyte Esterase (Negative) Urine RBC (0-2) /HPF Urine WBC (0-5) /HPF Ur Squamous Epith Cells (0-2) /HPF Urine Bacteria (None Seen) Hyaline Casts (0-2) /LPF Peritoneal WBC X10*3/uL Peritoneal RBC X10*6/uL Periton Neutrophils % Periton Lymphocytes % Peritoneal Monocytes % Peritoneal Other Cells % COVID-19 (ARVIN) Positive A (Negative) COVID-19 Clin Com See Note 08/13/22 08/13/22 Range/Units 12:33 14:35 WBC (4.8-10.8) X10*3/uL RBC (4.20-5.50) X10*6/uL Hgb (12.0-16.0) g/dl Hct (37.0-47.0) % MCV (80.0-98.0) fL MCH (27.0-33.0) pg MCHC (31.0-35.0) g/dl RDW (11.0-16.0) % Plt Count (160-400) X10*3/uL MPV (9.4-12.3) fL Immature Gran % (Auto) (0.0-0.4) % Neut % (Auto) (45-73) % Lymph % (Auto) (20-40) % [place] % (Auto) (2-11) % Eos % (Auto) (0-4) % Baso % (Auto) (0-2) % Lymph # (Auto) (1.2-4.9) X10*3/uL [place] # (Auto) (0.1-1.2) X10*3/uL Eos # (Auto) (0.0-0.4) X10*3/uL Baso # (Auto) (0.0-0.2) X10*3/uL Abs Immat Gran (auto) (0.00-0.03) X10*3/uL Absolute Neuts (auto) (2.0-8.3) x10*3/uL Absolute Nucleated RBC (0.0-0.012) X10*3/uL Nucleated RBC % (auto) (0.0-0.2) /100WBC PT (10.0-13.1) SEC INR (0.9-1.1) APTT (26.0-36.4) SEC Sodium (135-145) mmol/L Potassium (3.3-5.1) mmol/L Chloride (96-108) mmol/L Carbon Dioxide (22-29) mmol/L Anion Gap (12-20) BUN (9-16) mg/dL Creatinine (0.5-1.4) mg/dL Estim Creat Clear Calc Estimated GFR Random Glucose (60-115) mg/dL Calcium (8.4-10.2) mg/dL Magnesium (1.6-2.6) mg/dL Total Bilirubin (0.0-1.0) mg/dL Direct Bilirubin (0.0-0.5) mg/dL AST (5-31) U/L ALT (0-31) U/L Alkaline Phosphatase (39-117) U/L Troponin I High Sens (<3.5-17.0) ng/L B-Natriuretic Peptide (<100) pg/mL Total Protein (6.5-8.0) g/dL Albumin (3.5-5.0) g/dL Lipase (8-78) U/L Urine Color Yellow Urine Appearance Hazy Urine pH 8.5 (5.0-9.0) Ur Specific [place] 1.010 (1.005-1.025) Urine Protein Trace (Neg-Trace) mg/dL Urine Glucose (UA) Negative (Negative) mg/dL Urine Ketones Negative (Negative) mg/dL Urine Blood Trace (Negative) Urine Nitrite Negative (Negative) Ur Leukocyte Esterase Small (1+) H (Negative) Urine RBC 6-10 H (0-2) /HPF Urine WBC 11-20 H (0-5) /HPF Ur Squamous Epith Cells 0-2 (0-2) /HPF Urine Bacteria None Seen (None Seen) Hyaline Casts 0-2 (0-2) /LPF Peritoneal WBC 0.105 X10*3/uL Peritoneal RBC < 0.002 X10*6/uL Periton Neutrophils 4 % Periton Lymphocytes 25 % Peritoneal Monocytes 70 % Peritoneal Other Cells 75 % COVID-19 (ARVIN) (Negative) COVID-19 Clin Com ECG Data Attestation: I personally reviewed and interpreted this ECG as follows: Interpretation: EKG normal sinus rhythm at rate 97. QRS 66. QTC 444. No STEMI Critical Care Time Critical Care Time Critical Care Time: Yes Total Critical Care Time: 45 Attestation: I have personally provided critical care time exclusive of time spent on separately billable procedures. Time includes review of lab data, radiology results, discussion with consultants, and monitoring for potential decompensation. Intervention performed as documented. Discharge Plan Discharge Clinical Impression: Anasarca, UTI (urinary tract infection), Ascites Patient Disposition: Admitted As Inpatient
--- NOTE | 2022-08-13 09:55 | ECG_ITS ---
Test Reason : SOB Blood Pressure : / mmHG Vent. Rate : 097 BPM Atrial Rate : 097 BPM P-R Int : 162 ms QRS Dur : 066 ms QT Int : 352 ms P-R-T Axes : 059 014 049 degrees QTc Int : 447 ms Normal sinus rhythm Low voltage QRS Nonspecific ST abnormality Abnormal ECG When compared with ECG of 31-JUL-2022 15:49, Premature atrial complexes are no longer Present Referred By: Samaria Maxwell Electronically Signed By:HENRI CHEN MD
[2022-08-13 10:48] LABS: MANUAL DIFF FLAG NO
[2022-08-13 10:49] LABS: Basophils Percent Auto 0.1 % (0-2); Eosinophils Absolute Auto 0.1 X10*3/uL (0.0-0.4); Eosinophils Percent Auto 0.8 % (0-4); Hematocrit 33.4 % (37.0-47.0); Hemoglobin 10.6 g/dl (12.0-16.0); Imm Gran Abs Auto 0.09 X10*3/uL (0.00-0.03); Imm Gran Pct Auto 0.8 % (0.0-0.4); Lymphocytes Absolute Auto 1.7 X10*3/uL (1.2-4.9); Lymphocytes Percent Auto 15.7 % (20-40); Mean Corpuscular HGB Conc 31.7 g/dl (31.0-35.0); Mean Corpuscular Hemoglobin 26.2 pg (27.0-33.0); Mean Corpuscular Volume 82.5 fL (80.0-98.0); Mean Platelet Volume 9.3 fL (9.4-12.3); Monocytes Absolute Auto 0.9 X10*3/uL (0.1-1.2); Monocytes Percent Auto 8.2 % (2-11); Neutrophils Absolute Auto 7.9 x10*3/uL (2.0-8.3); Neutrophils Percent Auto 74.4 % (45-73); Platelet Count 195 X10*3/uL (160-400); Red Blood Count 4.05 X10*6/uL (4.20-5.50); Red Cell Distribution Width 21.2 % (11.0-16.0); White Blood Count 10.7 X10*3/uL (4.8-10.8)
[2022-08-13 10:54] LABS: Prothrombin Time 11.5 SEC (10.0-13.1)
[2022-08-13 10:58] LABS: COVID-19 Test Positive (Negative); IDNOW Serial# 16C4AD1C
[2022-08-13 11:09] LABS: Alanine Aminotransferase 39 U/L (0-31); Albumin Level 3.5 g/dL (3.5-5.0); Alkaline Phosphatase 102 U/L (39-117); Anion Gap 13 (12-20); Aspartate Amino Transferase 22 U/L (5-31); B Type Natriuretic Peptide 117 pg/mL (<100); Bilirubin Direct 0.3 mg/dL (0.0-0.5); Bilirubin Total 0.6 mg/dL (0.0-1.0); Blood Urea Nitrogen 12 mg/dL (9-16); Carbon Dioxide 25 mmol/L (22-29); Chloride 106 mmol/L (96-108); Creatinine Clr Calc Pharmacy 65.6; Estimated Glomerular Filt Rate > 60; Glucose Random 149 mg/dL (60-115); Lipase 40 U/L (8-78); Magnesium 2.1 mg/dL (1.6-2.6); Sodium 140 mmol/L (135-145); Total Protein 5.4 g/dL (6.5-8.0)
--- NOTE | 2022-08-13 11:09 | PC.NURSE ---
pt alert and oriented, skin pwd, respirations even and unlabored, pt reports nausea/vomiting/diarrhea for a couple of days, pt's abd distended and firm reports pain at 7/10 pt did come to the ed with a large about of loose stool, pt cleaned up and noticed a very small wound on the right upper cheek area
[2022-08-13 11:40] LABS: Partial Thromboplastin Time 30.7 SEC (26.0-36.4)
--- NOTE | 2022-08-13 11:56 | PHA.MEDREC ---
Pharmacy Consult ? Medication Reconciliation Pharmacy has completed the medication reconciliation. Patient came from [facility] with medication list. Brenda High, ElsaD
[2022-08-13 13:04] LABS: Appearance Urine Hazy; Color Urine Yellow; Glucose Urine UA Negative (Negative); Leukocyte Esterase Urine Small (1+) (Negative); Nitrite Urine Negative (Negative); PH 8.5 (5.0-9.0); UMIC TRIGGER UACC YES; Urine Blood Trace (Negative); Urine Ketones Negative (Negative); Urine Protein Trace mg/dL (Neg-Trace)
[2022-08-13 13:30] LABS: UACC Culture Trigger YES
--- NOTE | 2022-08-13 13:30 | PC.NURSE ---
ir at bedside for the parenthesis 4 bottles 4000ml of fluid removed , pt tolerated the procedure well
[2022-08-13 13:31] LABS: Bacteria Urine None Seen (None Seen); Hyaline Casts Urine 0-2 /LPF (0-2); Squamous Epithelial Cell Urine 0-2 /HPF (0-2)
[2022-08-13] MEDS: Lidocaine HCl 1 % MPF 5 ML VIAL SUBCUT (14:13)
[2022-08-13 14:14] VITALS: BP 128/72; PULSE 91; RESP 12; O2SAT 98
[2022-08-13] MEDS: Furosemide 40 MG/4 ML VIAL IVPUSH (14:17)
[2022-08-13] MEDS: Albumin Human 25 % 100 ML IV (14:18)
[2022-08-13 14:31] LABS: Troponin-I High Sensitivity 11.7 ng/L (<3.5-17.0)
[2022-08-13 14:50] LABS: MN% 87.2 %; PMN% 12.8 %; WBC Peritoneal Fluid 0.105 X10*3/uL
[2022-08-13 14:51] LABS: RBC Peritoneal Fluid < 0.002 X10*6/uL
[2022-08-13 15:24] LABS: BF Shift QC OK YES; Lymphocyte Peritoneal Fl 25 %; Monocytes Peritoneal Fl 70 %; Neutrophils Peritoneal Fluid 4 %; Other Peritioneal Fl 75 %
--- NOTE | 2022-08-13 15:42 | PC.NURSE ---
pt keeps bending her harm so the albmunin taking a lot longer to infuse, unable to hang the the abx
[2022-08-13] MEDS: cefTRIAXone sodium 1 GM in 0.9 % Sodium Chloride 50 ML IV (15:46)
--- NOTE | 2022-08-13 15:57 | PC.NURSE ---
perwick in place and draining about 700ml of pale yellow urine, some swelling in the lower the extremities
--- NOTE | 2022-08-13 16:09 | PM.IMHP ---
History of Present Illness Date of Service: 08/13/22 Chief Complaint: Shortness of breath 71-year-old female with a past medical history of hypertension, hyperlipidemia, diabetes, hypothyroidism, anemia, history of metastatic pancreatic cancer with peritoneal carcinomatosis, ascites, anxiety, depression was sent in from [facility] with shortness of breath worsening abdominal distension, abdominal pain. Patient was recently hospitalized [facility] for hypotension in symptomatic ascites. She had been discharged home on 08/08/2022, then return to the ED on 08/09/2022 unable to manage at home. Was incidentally found to be COVID positive at that time, though was not symptomatic other than weakness. Was discharged to [facility] for short-term rehab. Her ascites increased and started to have abdominal distention and pain causing shortness of breath so EMS was called to bring patient to the ED. in ED patient had paracentesis with 4.2 L fluid drained with relief of symptoms. Negative for SBP. Patient has noted chronic anasarca due to low protein from cancer. She had leukocytes in urine without nitrites or bacteria or dysuria. patient denies fever, chills. Review of Systems Review of Systems: Constitutional: Denies fever, denies Chills Eyes: denies blurry vision ENT: denies sore throat CVS: chest pain Respiratory: dyspnea GI: abdominal pain : denies dysuria MSK: denies neck pain Skin: denies rash Neuro: denies specific motor weakness Psych: denies suicidal ideation Endocrine: denies heat/cold intolerance Hematologic: denies easy bleeding Allergy: denies hives [facility] Medical History (Updated 08/13/22 @ 16:14 by Jalen Palma MD) Acute sinusitis Cardiac arrhythmia Chest pain Diabetes Dysuria Dysuria Flank pain HTN (hypertension) Left knee pain Post-menopausal Recurrent UTI Rib pain on right side Sinusitis Urinary frequency Urinary tract infection UTI (urinary tract infection) Yeast infection of the vagina Family History Father CVD (cardiovascular disease) Mother No problems noted. Surgical History H/O: hysterectomy History of cardiac radiofrequency ablation Social History Household Members: Spouse Housing: House Do you presently have visiting nurse or other home services: No Alcohol intake: never Patient Tobacco Use Status: Former Tobacco user Tobacco use type: Cigarette e-Cigarette/Vaping Use: Never Used Second Hand Smoke Exposure: Yes Advance Directives: Yes Advance Directives Information Provided: Yes Advance Directives on File: No Advance Directives Date on File: 06/21/22 service: No Current occupational status: retired Current occupation: rt handed Cognitive needs: No Hearing needs: No Vision needs: Yes Meds Allergies Allergy/AdvReac Type Severity Reaction Status Date / Time amoxicillin [From Augmentin] Allergy Intermediate rash Verified 07/27/22 16:25 cefuroxime [From CEFTIN] Allergy Intermediate RASH Verified 07/27/22 16:25 clavulanic acid Allergy Intermediate rash Verified 07/27/22 16:25 [From Augmentin] doxycycline [DOXYCYCLINE] Allergy Intermediate HIVES Verified 07/27/22 16:25 Sulfa (Sulfonamide Allergy Intermediate unknown Verified 07/27/22 16:25 Antibiotics) Active Medications: Current Medications Al Hydroxide/Mg Hydroxide (Magnesium Hydrox/Alum Hydrox 30 Ml Oral.Susp) 5 ml PO Q6H PRN PRN Reason: Indigestion Dexamethasone (Dexamethasone 4 Mg Tablet) 4 mg PO DAILY [facility] Dextrose (Dextrose 50 % 25 Gm/50 Ml Syringe) 25 gm IVPUSH Q15M PRN; Protocol PRN Reason: per Hypoglycemia Standing Ord. Enoxaparin Sodium (Enoxaparin Sodium 40 Mg/0.4 Ml Syringe) 40 mg SUBCUT Q24H [facility] Fluticasone Propionate (Fluticasone Propionate Nasal 16 Gm [place]) 1 spray NOSTRIL-B DAILY [facility] Furosemide (Furosemide 20 Mg/2 Ml Vial) 20 mg IVPUSH BID@0900,1800 [facility]; Protocol Glucose (Glucose Gel 15 Gm Gel..Gram.) 15 gm PO Q15M PRN; Protocol PRN Reason: per Hypoglycemia Standing Ord. Insulin Human Lispro (Insulin Lispro 100 Unit/Ml 3 Ml Vial) 0 unit SUBCUT QIDACHS [facility]; Protocol Latanoprost (Latanoprost 0.005 % Ophth Carly 2.5 Ml Drops) 1 drop EYE-BOTH QPM [facility] Levothyroxine Sodium (Levothyroxine Sodium 50 Mcg Tablet) 50 mcg PO DAILY@0600 [facility] Lorazepam (Lorazepam 0.5 Mg Tablet) 0.5 mg PO BEDTIME [facility] Multivitamins/Vitamin C (Multivitamin Tablet) 1 tab PO DAILY [facility] Non-Formulary Medication (Methenamine Hippurate) 1 tab PO DAILY [facility] Non-Formulary Medication (Pantoprazole) 1 tab PO DAILY [facility] Non-Formulary Medication (Simvastatin) 40 mg PO BEDTIME [facility] Oxycodone HCl (Oxycodone Hcl Immed Release 5 Mg Tablet) 5 mg PO TID PRN PRN Reason: moderate Pain Pharmacy Consult (Consult Rx Perform Med Rec) 1 each MISCELLANE ONCE PRN PRN Reason: Consult order Potassium Chloride (Potassium Chloride Er 10 Meq Capsule.Er) 20 meq PO DAILY [facility] Sodium Chloride (0.9 % Sodium Chloride Flush 3 Ml Syringe) 3 ml IVFLUSH QSHIFT [facility] Home Medications Medication Instructions Recorded Confirmed Last Taken Type levothyroxine 50 mcg tablet 1 tab PO DAILY@0600 08/10/22 08/13/22 Unknown History lorazepam 0.5 mg tablet 0.5 mg PO BEDTIME 08/10/22 08/13/22 Unknown History metformin 500 mg tablet,extended 500 mg PO DAILY 08/10/22 08/13/22 Unknown History release 24 hr potassium chloride 10 mEq 2 tab PO DAILY 08/10/22 08/13/22 Unknown History tablet,extended release acetaminophen 300 mg-codeine 30 mg 1 tab PO Q8H PRN Pain 08/13/22 08/13/22 Unknown History tablet aluminum-mag hydroxide-simethicone 5 ml PO Q6H PRN Indigestion 08/13/22 08/13/22 Unknown History 400 mg-400 mg-40 mg/5 mL oral susp (Laisha-Lanta) dexamethasone 4 mg tablet 4 mg PO DAILY 08/13/22 08/13/22 Unknown History fluticasone propionate 50 1 spray intranasal DAILY 08/13/22 08/13/22 Unknown History mcg/actuation nasal spray,suspension hydrocortisone 2.5 % topical cream 1 appl topical TID PRN Itching 08/13/22 08/13/22 Unknown History latanoprost 0.005 % eye drops 1 drp ophthalmic (eye) QPM 08/13/22 08/13/22 Unknown History methenamine hippurate 1 gram tablet 1 tab PO DAILY 08/13/22 08/13/22 Unknown History multivitamin 1 tab PO DAILY 08/13/22 08/13/22 Unknown History ondansetron HCl 4 mg tablet 1 tab PO Q8H PRN Nausea 08/13/22 08/13/22 Unknown History oxycodone 5 mg tablet 1 tab PO TID PRN Pain 08/13/22 08/13/22 Unknown History pantoprazole 40 mg tablet,delayed 1 tab PO DAILY 08/13/22 08/13/22 Unknown History release simvastatin 40 mg tablet 40 mg PO BEDTIME 08/13/22 08/13/22 Unknown History Physical Exam Vital Signs and Narrative: Vital Signs: Last Vital Signs Temp 98.7 F 08/13/22 09:44 Pulse 91 08/13/22 14:14 Resp 12 08/13/22 14:14 BP 128/72 08/13/22 14:14 Pulse Ox 98 08/13/22 14:14 O2 Del Method 08/13/22 14:14 BMI result Body Mass Index 26.0 General: no acute distress HEENT: atraumatic Neck: normal to visual inspection CVS: S1, S2, RRR Resp: CTA bilateral Chest: non tender GI: soft, non tender, non distended : no CVA tenderness Skin: no rashes Extremities: 3 + bilateral edema (decreased from previous) Neuro: Oriented X3, grossly intact Psych: cooperative Results Labs CBC and Chem 7: 08/13/22 10:44 08/13/22 10:44 Labs: Laboratory Results - last 24 hr 08/13/22 08/13/22 08/13/22 10:44 10:44 10:44 MCV 82.5 MCH 26.2 L MCHC 31.7 RDW 21.2 H Plt Count 195 D MPV 9.3 L Immature Gran % (Auto) 0.8 H Neut % (Auto) 74.4 H Lymph % (Auto) 15.7 L Lamb % (Auto) 8.2 Eos % (Auto) 0.8 Baso % (Auto) 0.1 Lymph # (Auto) 1.7 Lamb # (Auto) 0.9 Eos # (Auto) 0.1 Baso # (Auto) 0.0 Abs Immat Gran (auto) 0.09 H Absolute Neuts (auto) 7.9 Absolute Nucleated RBC 0.000 Nucleated RBC % (auto) 0.0 PT 11.5 INR 1.0 APTT 30.7 Anion Gap 13 Estim Creat Clear Calc 65.6 Estimated GFR > 60 Random Glucose 149 H Calcium 9.0 Magnesium 2.1 Total Bilirubin 0.6 Direct Bilirubin 0.3 AST 22 ALT 39 H Alkaline Phosphatase 102 D Troponin I High Sens B-Natriuretic Peptide Total Protein 5.4 L Albumin 3.5 D Lipase 40 Urine Color Urine Appearance Urine pH Ur Specific [place] Urine Protein Urine Glucose (UA) Urine Ketones Urine Blood Urine Nitrite Ur Leukocyte Esterase Urine RBC Urine WBC Ur Squamous Epith Cells Urine Bacteria Hyaline Casts Peritoneal WBC Peritoneal RBC Periton Neutrophils Periton Lymphocytes Peritoneal Monocytes Peritoneal Other Cells COVID-19 ([facility]VIN) COVID-19 Clin Com 08/13/22 08/13/22 08/13/22 10:44 10:44 10:44 MCV MCH MCHC RDW Plt Count MPV Immature Gran % (Auto) Neut % (Auto) Lymph % (Auto) Lamb % (Auto) Eos % (Auto) Baso % (Auto) Lymph # (Auto) Lamb # (Auto) Eos # (Auto) Baso # (Auto) Abs Immat Gran (auto) Absolute Neuts (auto) Absolute Nucleated RBC Nucleated RBC % (auto) PT INR APTT Anion Gap Estim Creat Clear Calc Estimated GFR Random Glucose Calcium Magnesium Total Bilirubin Direct Bilirubin AST ALT Alkaline Phosphatase Troponin I High Sens 11.7 B-Natriuretic Peptide 117 H Total Protein Albumin Lipase Urine Color Urine Appearance Urine pH Ur Specific [place] Urine Protein Urine Glucose (UA) Urine Ketones Urine Blood Urine Nitrite Ur Leukocyte Esterase Urine RBC Urine WBC Ur Squamous Epith Cells Urine Bacteria Hyaline Casts Peritoneal WBC Peritoneal RBC Periton Neutrophils Periton Lymphocytes Peritoneal Monocytes Peritoneal Other Cells COVID-19 (ARVIN) Positive A COVID-19 Clin Com See Note 08/13/22 08/13/22 12:33 14:35 MCV MCH MCHC RDW Plt Count MPV Immature Gran % (Auto) Neut % (Auto) Lymph % (Auto) Lamb % (Auto) Eos % (Auto) Baso % (Auto) Lymph # (Auto) Lamb # (Auto) Eos # (Auto) Baso # (Auto) Abs Immat Gran (auto) Absolute Neuts (auto) Absolute Nucleated RBC Nucleated RBC % (auto) PT INR APTT Anion Gap Estim Creat Clear Calc Estimated GFR Random Glucose Calcium Magnesium Total Bilirubin Direct Bilirubin AST ALT Alkaline Phosphatase Troponin I High Sens B-Natriuretic Peptide Total Protein Albumin Lipase Urine Color Yellow Urine Appearance Hazy Urine pH 8.5 Ur Specific [place] 1.010 Urine Protein Trace Urine Glucose (UA) Negative Urine Ketones Negative Urine Blood Trace Urine Nitrite Negative Ur Leukocyte Esterase Small (1+) H Urine RBC 6-10 H Urine WBC 11-20 H Ur Squamous Epith Cells 0-2 Urine Bacteria None Seen Hyaline Casts 0-2 Peritoneal WBC 0.105 Peritoneal RBC < 0.002 Periton Neutrophils 4 Periton Lymphocytes 25 Peritoneal Monocytes 70 Peritoneal Other Cells 75 COVID-19 (ARVIN) COVID-19 Clin Com Imaging Radiologist's Impressions: Impressions Chest X-Ray 08/13/22 10:15 IMPRESSION: * No new cardiopulmonary findings compared to prior from 08/10/2022. * Persistent small left pleural effusion and mild lateral basilar atelectasis. Abdomen/Pelvis CT 08/13/22 11:26 IMPRESSION: Limited by lack of oral and intravenous contrast. Reported pancreatic mass not appreciated on the current, limited, noncontrast study. Moderate to large amount of ascites, improved compared with July 28, 2022. Question omental infiltration/caking, similar compared with most recent prior from July 28, 2022. Cannot exclude malignant involvement. Mild diffuse gallbladder wall thickening, nonspecific. Suspect less than 5 mm gallstones. Anasarca. Paracentesis Ultrasound 08/13/22 14:00 IMPRESSION: Ultrasound-guided paracentesis. Assessment and Plan (1) Anasarca: Status: Acute Plan 71-year-old female with a past medical history of hypertension, hyperlipidemia, diabetes, hypothyroidism, anemia, history of metastatic pancreatic cancer with peritoneal carcinomatosis, ascites, anxiety, depression? Presented with symptomatic ascites. metastatic pancreatic cancer with symptomatic ascites and anasarca due to low protein status post paracentesis with resolution of symptoms will give some IV diuresis and albumin oncology eval COVID 19 no hypoxia diabetes insulin hypothyroid Synthroid DVT prophylaxis with Lovenox full code Quality Stroke Does the patient have a stroke diagnosis?: No VTE Prior VTE?: No VTE Risk Level:: Medical - moderate - high VTE Device Contraindication: Treatment Not Indicated VTE Drug Contraindication: N/A - Med Ordered
[2022-08-13 16:55] LABS: Troponin-I High Sensitivity 14.4 ng/L (<3.5-17.0)
[2022-08-13 18:01] VITALS: BP 108/60; PULSE 99; RESP 20; O2SAT 98
[2022-08-13] MEDS: 0.9 % Sodium Chloride Flush 3 ML SYRINGE IVFLUSH (18:03)
[2022-08-13] MEDS: oxyCODONE HCl Immed Release 5 MG TABLET PO (18:03)
[2022-08-13 18:18] LABS: Albumin Peritoneal Fluid 2.2 GM/DL; Glucose Peritoneal Fluid 142 MG/DL
[2022-08-13 19:06] LABS: Glucose, Whole Blood 129 mg/dL (60-115)
--- NOTE | 2022-08-13 20:16 | PC.NURSE ---
this rn checked BP at 2012 BP 95/53. Reported this finding to Dr. Whitehead. Dr instructed this RN to hold 20mg Lasix at this time
[2022-08-13 20:17] VITALS: BP 95/53; PULSE 96
[2022-08-13] MEDS: Acetaminophen 325 MG TABLET 650 MG PO (20:57)
[2022-08-13] MEDS: Latanoprost 0.005 % Ophth Sol 2.5 ML DROPS 1 DROP EYE-BOTH ×3 (21:04→22:40)
[2022-08-13 21:22] VITALS: BP 117/58; PULSE 97; RESP 16; TEMP 36.3; O2SAT 99
--- NOTE | 2022-08-13 21:26 | PC.NURSE ---
THIS PCT ASSUMED CARE OF PT AT 2119 ,PT GOT MOVE INTO HOSPITAL BED IN OVERFLOW ,BS AND VS TAKEN ,NEW PUREWICK IN PLACE ,PT WAS GIVEN BOX OF TISSUE PITCHER OF WATER ,SMALL TRASH BAG ATTACH TO BED SIDE TABLE .
[2022-08-13 21:38] LABS: Glucose, Whole Blood 177 mg/dL (60-115)
[2022-08-13] MEDS: LORazepam 0.5 MG TABLET PO (22:37)
[2022-08-13] MEDS: Insulin Lispro 100 UNIT/ML 3 ML VIAL SUBCUT (22:37)
--- NOTE | 2022-08-13 23:50 | PC.NURSE ---
0000 rounding done pt asleep call lfores within reach .
[2022-08-14 04:27] VITALS: BP 134/71; PULSE 91; RESP 16; TEMP 36.1; O2SAT 97
[2022-08-14] MEDS: Acetaminophen 325 MG TABLET 650 MG PO (05:09)
[2022-08-14] MEDS: Levothyroxine Sodium 50 MCG TABLET PO (06:42)
[2022-08-14] MEDS: Atorvastatin Calcium 20 MG TABLET PO (08:10)
[2022-08-14] MEDS: Multivitamin TABLET 1 TAB PO (08:10)
[2022-08-14] MEDS: Omeprazole 20 MG CAPSULE.DR PO (08:11)
[2022-08-14] MEDS: Enoxaparin Sodium 40 MG/0.4 ML SYRINGE SUBCUT (08:11)
[2022-08-14] MEDS: Fluticasone Propionate Nasal 16 GM SPRAY 1 SPRAY NOSTRIL-B (08:15)
[2022-08-14] MEDS: 0.9 % Sodium Chloride Flush 3 ML SYRINGE IVFLUSH (08:23)
[2022-08-14 09:04] LABS: Glucose, Whole Blood 124 mg/dL (60-115)
[2022-08-14 09:06] VITALS: BP 112/70; PULSE 91; RESP 14; TEMP 36.5; O2SAT 97
[2022-08-14] MEDS: Furosemide 20 MG/2 ML VIAL IVPUSH (10:59)
[2022-08-14] MEDS: dexAMETHasone 4 MG TABLET PO (10:59)
[2022-08-14 11:17] LABS: Glucose, Whole Blood 159 mg/dL (60-115)
[2022-08-14 11:23] VITALS: BP 122/64; PULSE 85; RESP 20; TEMP 36.6; O2SAT 93
[2022-08-14] MEDS: Insulin Lispro 100 UNIT/ML 3 ML VIAL SUBCUT (11:51)
--- NOTE | 2022-08-14 12:17 | P.PNIM_ITS ---
Subjective Subjective Date of Service: 08/14/22 Interval History: cc: symptomatic ascites interval history:resolved Cardiovascular Cardiovascular: Reports no additional cardiovascular complaints Respiratory Respiratory: Reports no additional respiratory complaints Physical Exam Vital Signs: Vital Signs: Last Vital Signs Temp 97.8 F 08/14/22 11:23 Pulse 85 08/14/22 11:23 Resp 20 08/14/22 11:23 BP 122/64 08/14/22 11:23 Pulse Ox 93 08/14/22 11:23 O2 Del Method 08/14/22 11:23 BMI result Body Mass Index 26.0 General: AO X 3, no acute distress, anasarca resolved Resp: CTA bilateral, no accessory muscles used CVS: S1,S2,RRR GI: soft, non tender, non distended Neuro: motor grossly intact, alert Psych: appropriate affect, appropriate insight Objective Data Active Medications Acetaminophen (Acetaminophen 325 Mg Tablet) 650 mg PO Q6H PRN PRN Reason: Pain, Mild (Pain Scale 1-3) Last Admin: 08/14/22 05:09 Dose: 650 mg Documented By: SHANNAN Al Hydroxide/Mg Hydroxide (Magnesium Hydrox/Alum Hydrox 30 Ml Oral.Susp) 5 ml PO Q6H PRN PRN Reason: Indigestion Atorvastatin Calcium (Atorvastatin Calcium 20 Mg Tablet) 20 mg PO DAILY [facility] Last Admin: 08/14/22 08:10 Dose: 20 mg Documented By: SHEILA Dexamethasone (Dexamethasone 4 Mg Tablet) 4 mg PO DAILY [facility] Last Admin: 08/14/22 10:59 Dose: 4 mg Documented By: MATTHEW Dextrose (Dextrose 50 % 25 Gm/50 Ml Syringe) 25 gm IVPUSH Q15M PRN; Protocol PRN Reason: per Hypoglycemia Standing Ord. Enoxaparin Sodium (Enoxaparin Sodium 40 Mg/0.4 Ml Syringe) 40 mg SUBCUT Q24H [facility] Last Admin: 08/14/22 08:11 Dose: 40 mg Documented By: SHEILA Fluticasone Propionate (Fluticasone Propionate Nasal 16 Gm [place]) 1 spray NOSTRIL-B DAILY [facility] Last Admin: 08/14/22 08:15 Dose: 1 spray Documented By: SHEILA Furosemide (Furosemide 20 Mg/2 Ml Vial) 20 mg IVPUSH BID@0900,1800 [facility]; Protocol Last Admin: 08/14/22 10:59 Dose: 20 mg Documented By: MATTHEW Glucose (Glucose Gel 15 Gm Gel..Gram.) 15 gm PO Q15M PRN; Protocol PRN Reason: per Hypoglycemia Standing Ord. Insulin Human Lispro (Insulin Lispro 100 Unit/Ml 3 Ml Vial) 0 unit SUBCUT QIDACHS [facility]; Protocol Last Admin: 08/14/22 11:51 Dose: 2 unit Documented By: MATTHEW Latanoprost (Latanoprost 0.005 % Ophth Carly 2.5 Ml Drops) 1 drop EYE-BOTH DAILY@2100 [facility] Last Admin: 08/13/22 21:04 Dose: 1 drop Documented By: EMILY Levothyroxine Sodium (Levothyroxine Sodium 50 Mcg Tablet) 50 mcg PO DAILY@0600 [facility] Last Admin: 08/14/22 06:42 Dose: 50 mcg Documented By: SHANNAN Lorazepam (Lorazepam 0.5 Mg Tablet) 0.5 mg PO BEDTIME [facility] Last Admin: 08/13/22 22:37 Dose: 0.5 mg Documented By: KELECHI Multivitamins/Vitamin C (Multivitamin Tablet) 1 tab PO DAILY [facility] Last Admin: 08/14/22 08:10 Dose: 1 tab Documented By: SHEILA Non-Formulary Medication (Methenamine Hippurate) 1 tab PO DAILY [facility] Omeprazole (Omeprazole 20 Mg Capsule.Dr) 20 mg PO DAILY@0630 [facility] Last Admin: 08/14/22 08:11 Dose: 20 mg Documented By: SHEILA Oxycodone HCl (Oxycodone Hcl Immed Release 5 Mg Tablet) 5 mg PO TID PRN PRN Reason: moderate Pain Last Admin: 08/13/22 18:03 Dose: 5 mg Documented By: JERRI Pharmacy Consult (Consult Rx Perform Med Rec) 1 each MISCELLANE ONCE PRN PRN Reason: Consult order Potassium Chloride (Potassium Chloride Er 10 Meq Capsule.Er) 20 meq PO DAILY [facility] Last Admin: 08/14/22 10:58 Dose: 20 meq Documented By: MATTHEW Sodium Chloride (0.9 % Sodium Chloride Flush 3 Ml Syringe) 3 ml IVFLUSH QSHIFT [facility] Last Admin: 08/14/22 08:23 Dose: 3 ml Documented By: HO.GARVEN Labs CBC & Chem 7: 08/13/22 10:44 08/13/22 10:44 Labs: Laboratory Results - last 24 hr 08/13/22 08/13/22 08/13/22 10:44 12:33 14:35 POC Glucose Troponin I High Sens 11.7 Urine Color Yellow Urine Appearance Hazy Urine pH 8.5 Ur Specific [place] 1.010 Urine Protein Trace Urine Glucose (UA) Negative Urine Ketones Negative Urine Blood Trace Urine Nitrite Negative Ur Leukocyte Esterase Small (1+) H Urine RBC 6-10 H Urine WBC 11-20 H Ur Squamous Epith Cells 0-2 Urine Bacteria None Seen Hyaline Casts 0-2 Peritoneal WBC 0.105 Peritoneal RBC < 0.002 Periton Neutrophils 4 Periton Lymphocytes 25 Peritoneal Monocytes 70 Peritoneal Other Cells 75 Peritoneal Tot Protein Peritoneal Albumin Peritoneal Glucose 08/13/22 08/13/22 08/13/22 14:35 16:25 19:02 POC Glucose 129 H Troponin I High Sens 14.4 Urine Color Urine Appearance Urine pH Ur Specific [place] Urine Protein Urine Glucose (UA) Urine Ketones Urine Blood Urine Nitrite Ur Leukocyte Esterase Urine RBC Urine WBC Ur Squamous Epith Cells Urine Bacteria Hyaline Casts Peritoneal WBC Peritoneal RBC Periton Neutrophils Periton Lymphocytes Peritoneal Monocytes Peritoneal Other Cells Peritoneal Tot Protein 3.0 Peritoneal Albumin 2.2 Peritoneal Glucose 142 08/13/22 08/14/22 08/14/22 21:25 07:37 11:11 POC Glucose 177 H 124 H 159 H Troponin I High Sens Urine Color Urine Appearance Urine pH Ur Specific [place] Urine Protein Urine Glucose (UA) Urine Ketones Urine Blood Urine Nitrite Ur Leukocyte Esterase Urine RBC Urine WBC Ur Squamous Epith Cells Urine Bacteria Hyaline Casts Peritoneal WBC Peritoneal RBC Periton Neutrophils Periton Lymphocytes Peritoneal Monocytes Peritoneal Other Cells Peritoneal Tot Protein Peritoneal Albumin Peritoneal Glucose Microbiology Microbiology Results: Microbiology 08/13/22 14:35 Urine Culture - Final Urine clean catch - Urine schulte top 08/13/22 14:35 Gram Stain - Final Abdominal Fluid Routine Culture - Preliminary No growth to date. Anaerobic Culture - Preliminary No growth to date. Assessment and Plan (1) COVID-19: Status: Acute Plan 71-year-old female with a past medical history of hypertension, hyperlipidemia, diabetes, hypothyroidism, anemia, history of metastatic pancreatic cancer with peritoneal carcinomatosis, ascites, anxiety, depression?? Presented with symptomatic ascites. ?metastatic pancreatic cancer with symptomatic ascites and anasarca due to low protein ?resolved status post paracentesis with resolution of symptoms ?changed iv lasix to maintence 20mg po ?COVID 19 ?no hypoxia ?diabetes ?insulin ?hypothyroid ?Synthroid ?DVT prophylaxis with Lovenox ?full code reason for continued hospitalization:medically stable, awaiting safe dispo Quality Stroke Does the patient have a stroke diagnosis?: No VTE Prior VTE?: No VTE Risk Level:: Medical - moderate - high VTE Device Contraindication: Treatment Not Indicated VTE Drug Contraindication: N/A - Med Ordered
--- NOTE | 2022-08-14 12:22 | PM.DS ---
DS: Providers Provider Date of Service: 08/14/22 Date of admission: 08/13/22 16:05 Primary care physician: Sammy Cordova PA-C Consults: 08/13/22 16:03 Consult to Hematology / Oncology Routine Consulting Provider: Charis Beverly Reason for consultation: weakness, metastatic panc ca DS: Diagnosis Discharge Diagnosis (1) COVID-19: Status: Acute DS: Summary Hospital Course Hospital Course: form initial hpi: Chief Complaint: ? Shortness of breath 71-year-old female with a past medical history of hypertension, hyperlipidemia, diabetes, hypothyroidism, anemia, history of metastatic pancreatic cancer with peritoneal carcinomatosis, ascites, anxiety, depression was sent in from [facility] with shortness of breath worsening abdominal distension, abdominal pain.? Patient was recently hospitalized [facility] for hypotension in symptomatic ascites.? She had been discharged home on 08/08/2022, then return to the ED on 08/09/2022 unable to manage at home.? Was incidentally found to be COVID positive at that time, though was not symptomatic other than weakness.? Was discharged to [facility] for short-term rehab.? Her ascites increased and started to have abdominal distention and pain causing shortness of breath so EMS was called to bring patient to the ED. in ED patient had paracentesis with 4.2 L fluid drained with relief of symptoms.? Negative for SBP.? Patient has noted chronic anasarca due to low protein from cancer.? She had leukocytes in urine without nitrites or bacteria or dysuria.? patient denies fever, chills. hospital course: Patient was observed for metastatic pancreatic cancer with symptomatic ascites and anasarca due to low protein. She underwent paracentesis with over 4 L drained and resolution of her symptoms. She was also given some IV diuresis and albumin. Lower extremity edema also improved. She had no symptoms were more COVID-19. for diabetes was continue insulin. For hypothyroidism she was continued on Synthroid. On discharge will start Lasix 20 mg daily for maintenance. Time Spent with Patient Time attestation: Total time spent providing and/or coordinating discharge services: Discharge coordination time: Greater than 30 minutes Quality: Safe Use of Opioids Does Pt have an Active Cancer Diagnosis on the Problem List?: No Quality: Stroke Does the patient have a stroke diagnosis?: No Physical Exam Vital Signs: Vital Signs: Last Vital Signs Temp 97.8 F 08/14/22 11:23 Pulse 85 08/14/22 11:23 Resp 20 08/14/22 11:23 BP 122/64 08/14/22 11:23 Pulse Ox 93 08/14/22 11:23 O2 Del Method 08/14/22 11:23 BMI result Body Mass Index 26.0 General: AO X 3, no acute distress Resp: CTA bilateral, no accessory muscles used CVS: S1,S2,RRR GI: soft, non tender, non distended Neuro: motor grossly intact, alert Psych: appropriate affect, appropriate insight DS: Data Data Completed and Pending Completed studies during hospitalization [Text1]: Procedures Drainage of Peritoneal Cavity, Percutaneous Approach (07/28/22) Transfusion of Nonautologous Red Blood Cells into Peripheral Vein, Percutaneous Approach (07/28/22) Labs on day of discharge: Laboratory Results - last 24 hr 08/13/22 08/13/22 08/13/22 10:44 12:33 14:35 POC Glucose Troponin I High Sens 11.7 Urine Color Yellow Urine Appearance Hazy Urine pH 8.5 Ur Specific [place] 1.010 Urine Protein Trace Urine Glucose (UA) Negative Urine Ketones Negative Urine Blood Trace Urine Nitrite Negative Ur Leukocyte Esterase Small (1+) H Urine RBC 6-10 H Urine WBC 11-20 H Ur Squamous Epith Cells 0-2 Urine Bacteria None Seen Hyaline Casts 0-2 Peritoneal WBC 0.105 Peritoneal RBC < 0.002 Periton Neutrophils 4 Periton Lymphocytes 25 Peritoneal Monocytes 70 Peritoneal Other Cells 75 Peritoneal Tot Protein Peritoneal Albumin Peritoneal Glucose 08/13/22 08/13/22 08/13/22 14:35 16:25 19:02 POC Glucose 129 H Troponin I High Sens 14.4 Urine Color Urine Appearance Urine pH Ur Specific [place] Urine Protein Urine Glucose (UA) Urine Ketones Urine Blood Urine Nitrite Ur Leukocyte Esterase Urine RBC Urine WBC Ur Squamous Epith Cells Urine Bacteria Hyaline Casts Peritoneal WBC Peritoneal RBC Periton Neutrophils Periton Lymphocytes Peritoneal Monocytes Peritoneal Other Cells Peritoneal Tot Protein 3.0 Peritoneal Albumin 2.2 Peritoneal Glucose 142 08/13/22 08/14/22 08/14/22 21:25 07:37 11:11 POC Glucose 177 H 124 H 159 H Troponin I High Sens Urine Color Urine Appearance Urine pH Ur Specific [place] Urine Protein Urine Glucose (UA) Urine Ketones Urine Blood Urine Nitrite Ur Leukocyte Esterase Urine RBC Urine WBC Ur Squamous Epith Cells Urine Bacteria Hyaline Casts Peritoneal WBC Peritoneal RBC Periton Neutrophils Periton Lymphocytes Peritoneal Monocytes Peritoneal Other Cells Peritoneal Tot Protein Peritoneal Albumin Peritoneal Glucose Preliminary micro results at discharge 08/13/22 14:35 Routine Culture - Preliminary Abdominal Fluid No growth to date. Anaerobic Culture - Preliminary No growth to date. Discharge Plan Discharge Anticipated Discharge Date/Time: 08/14/22 12:19 Patient Disposition: Xfer SNF Discharge Diagnosis: sympotomatic ascites Referrals: Sammy Cordova PA-C [Primary Care Provider] - 1 Week Discharge Medications: New furosemide [Lasix] 20 mg tablet 20 mg PO DAILY Qty: 30 0RF Continued potassium chloride 10 mEq tablet extended release 2 tab PO DAILY lorazepam 0.5 mg tablet 0.5 mg PO BEDTIME levothyroxine 50 mcg tablet 1 tab PO DAILY@0600 metformin 500 mg tablet extended release 24 hr 500 mg PO DAILY oxycodone 5 mg tablet 1 tab PO TID PRN (Reason: Pain) multivitamin Tablet 1 tab PO DAILY ondansetron HCl 4 mg tablet 1 tab PO Q8H PRN (Reason: Nausea) acetaminophen-codeine 300-30 mg tablet 1 tab PO Q8H PRN (Reason: Pain) methenamine hippurate 1 gram tablet 1 tab PO DAILY pantoprazole 40 mg tablet,delayed release (DR/EC) 1 tab PO DAILY latanoprost 0.005 % Drops 1 drp OPHTHALMIC (EYE) QPM simvastatin 40 mg Tablet 40 mg PO BEDTIME dexamethasone 4 mg Tablet 4 mg PO DAILY alum-mag hydroxide-simeth [Laisha-Lanta] 400-400-40 mg/5 mL Suspension 5 ml PO Q6H PRN (Reason: Indigestion) hydrocortisone 2.5 % Cream 1 appl TOPICAL TID PRN (Reason: Itching) fluticasone propionate 50 mcg/actuation [place],Suspension 1 spray INTRANASAL DAILY Rx Instructions: administer into each nostril Discharge Orders: Discharge Order (Routine); Ordered 08/14/22 Ordered By: Jalen Palma Diet: Advance to usual diet Activity on Discharge: As tolerated Stand Alone Forms: Patient Portal Discharge page Care Plan Goals: manage pancreatic cancer Health Concerns: recurrent ascites Plan of Treatment: prn paracentesis, started on po lasix Assessment: see above
--- NOTE | 2022-08-14 12:32 | PM.HEMONCCN ---
Subjective - Subjective Chief complaint: shortness of breath/ Abdominal distension Patient: known to practice within the last 3 years Consult date: 08/14/22 Primary Care Provider: Sammy Cordova PA-C Medical Summary: diagnosis: Metastatic pancreatic cancer, on palliative chemotherapy HPI - Consult Narrative Reason for consult: metastatic pancreatic cancer Narrative: Izabela Pitt is a 71 year old female who is admitted because of shortness of breath secondary to recurrent ascites. She was recently admitted to the hospital and discharged to [facility] facility. However she was noted to be short of breath with increasing abdominal distension and sent back to the hospital. She was also found to be COVID positive met without any significant symptoms. In the emergency department patient had paracentesis with about 4 L of fluid that was drained. She did not have any fever or chills. Patient states that she is now feeling better. She does not want to go back to the SNF and wants to go home. Review of Systems - Constitutional Reports fatigue, Reports lack of energy, Reports malaise, Reports weakness, Reports weight loss - Gastrointestinal Reports abdominal pain, Reports bloating, Denies bright, red blood in stools Oncology Screenings - ECOG Performance Status ECOG Performance Status: [facility] Medical History: Medical History (Last Updated 08/13/22 @ 16:14 by Jalen Palma MD) Acute sinusitis Cardiac arrhythmia Chest pain Diabetes Dysuria Dysuria Flank pain HTN (hypertension) Left knee pain Post-menopausal Recurrent UTI Rib pain on right side Sinusitis Urinary frequency Urinary tract infection UTI (urinary tract infection) Yeast infection of the vagina Family History: Family History (Last Reviewed 08/13/22 @ 16:13 by Jalen Palma MD) Father CVD (cardiovascular disease) Mother No problems noted. Surgical History: Surgical History (Last Reviewed 08/13/22 @ 16:13 by Jalen Palma MD) H/O: hysterectomy History of cardiac radiofrequency ablation Social History: Social History (Last Reviewed 08/13/22 @ 16:13 by Jalen Palma MD) Living Situation History: Household Members: Spouse Housing: House Do you presently have visiting nurse or other home services: No Tobacco History: Patient Tobacco Use Status: Former Tobacco user Tobacco use type: Cigarette e-Cigarette/Vaping Use: Never Used Second Hand Smoke Exposure: Yes Advance Directives: Advance Directives Date on File: 06/21/22 Occupation Assessmet: service: No Current occupational status: retired Current occupation: rt handed Home Medications and Allergies Current Medications: Current Medications Acetaminophen (Acetaminophen 325 Mg Tablet) 650 mg PO Q6H PRN PRN Reason: Pain, Mild (Pain Scale 1-3) Last Admin: 08/14/22 05:09 Dose: 650 mg Al Hydroxide/Mg Hydroxide (Magnesium Hydrox/Alum Hydrox 30 Ml Oral.Susp) 5 ml PO Q6H PRN PRN Reason: Indigestion Atorvastatin Calcium (Atorvastatin Calcium 20 Mg Tablet) 20 mg PO DAILY [facility] Last Admin: 08/14/22 08:10 Dose: 20 mg Dexamethasone (Dexamethasone 4 Mg Tablet) 4 mg PO DAILY [facility] Last Admin: 08/14/22 10:59 Dose: 4 mg Dextrose (Dextrose 50 % 25 Gm/50 Ml Syringe) 25 gm IVPUSH Q15M PRN; Protocol PRN Reason: per Hypoglycemia Standing Ord. Enoxaparin Sodium (Enoxaparin Sodium 40 Mg/0.4 Ml Syringe) 40 mg SUBCUT Q24H [facility] Last Admin: 08/14/22 08:11 Dose: 40 mg Fluticasone Propionate (Fluticasone Propionate Nasal 16 Gm [place]) 1 spray NOSTRIL-B DAILY [facility] Last Admin: 08/14/22 08:15 Dose: 1 spray Furosemide (Furosemide 20 Mg/2 Ml Vial) 20 mg IVPUSH DAILY [facility]; Protocol Glucose (Glucose Gel 15 Gm Gel..Gram.) 15 gm PO Q15M PRN; Protocol PRN Reason: per Hypoglycemia Standing Ord. Insulin Human Lispro (Insulin Lispro 100 Unit/Ml 3 Ml Vial) 0 unit SUBCUT QIDACHS [facility]; Protocol Last Admin: 08/14/22 11:51 Dose: 2 unit Latanoprost (Latanoprost 0.005 % Ophth Carly 2.5 Ml Drops) 1 drop EYE-BOTH DAILY@2100 [facility] Last Admin: 08/13/22 22:40 Dose: 1 drop Levothyroxine Sodium (Levothyroxine Sodium 50 Mcg Tablet) 50 mcg PO DAILY@0600 [facility] Last Admin: 08/14/22 06:42 Dose: 50 mcg Lorazepam (Lorazepam 0.5 Mg Tablet) 0.5 mg PO BEDTIME [facility] Last Admin: 08/13/22 22:37 Dose: 0.5 mg Multivitamins/Vitamin C (Multivitamin Tablet) 1 tab PO DAILY [facility] Last Admin: 08/14/22 08:10 Dose: 1 tab Non-Formulary Medication (Methenamine Hippurate) 1 tab PO DAILY [facility] Omeprazole (Omeprazole 20 Mg Capsule.Dr) 20 mg PO DAILY@0630 [facility] Last Admin: 08/14/22 08:11 Dose: 20 mg Oxycodone HCl (Oxycodone Hcl Immed Release 5 Mg Tablet) 5 mg PO TID PRN PRN Reason: moderate Pain Last Admin: 08/13/22 18:03 Dose: 5 mg Pharmacy Consult (Consult Rx Perform Med Rec) 1 each MISCELLANE ONCE PRN PRN Reason: Consult order Potassium Chloride (Potassium Chloride Er 10 Meq Capsule.Er) 20 meq PO DAILY [facility] Last Admin: 08/14/22 10:58 Dose: 20 meq Sodium Chloride (0.9 % Sodium Chloride Flush 3 Ml Syringe) 3 ml IVFLUSH QSHIFT [facility] Last Admin: 08/14/22 08:23 Dose: 3 ml Home Medications Medication Instructions Recorded Confirmed Type levothyroxine 50 mcg tablet 1 tab PO DAILY@0600 08/10/22 08/13/22 History lorazepam 0.5 mg tablet 0.5 mg PO BEDTIME 08/10/22 08/13/22 History metformin 500 mg tablet,extended 500 mg PO DAILY 08/10/22 08/13/22 History release 24 hr potassium chloride 10 mEq 2 tab PO DAILY 08/10/22 08/13/22 History tablet,extended release acetaminophen 300 mg-codeine 30 mg 1 tab PO Q8H PRN Pain 08/13/22 08/13/22 History tablet aluminum-mag hydroxide-simethicone 5 ml PO Q6H PRN Indigestion 08/13/22 08/13/22 History 400 mg-400 mg-40 mg/5 mL oral susp (Laisha-Lanta) dexamethasone 4 mg tablet 4 mg PO DAILY 08/13/22 08/13/22 History fluticasone propionate 50 1 spray intranasal DAILY 08/13/22 08/13/22 History mcg/actuation nasal spray,suspension hydrocortisone 2.5 % topical cream 1 appl topical TID PRN Itching 08/13/22 08/13/22 History latanoprost 0.005 % eye drops 1 drp ophthalmic (eye) QPM 08/13/22 08/13/22 History methenamine hippurate 1 gram tablet 1 tab PO DAILY 08/13/22 08/13/22 History multivitamin 1 tab PO DAILY 08/13/22 08/13/22 History ondansetron HCl 4 mg tablet 1 tab PO Q8H PRN Nausea 08/13/22 08/13/22 History oxycodone 5 mg tablet 1 tab PO TID PRN Pain 08/13/22 08/13/22 History pantoprazole 40 mg tablet,delayed 1 tab PO DAILY 08/13/22 08/13/22 History release simvastatin 40 mg tablet 40 mg PO BEDTIME 08/13/22 08/13/22 History Allergies Allergy/AdvReac Type Severity Reaction Status Date / Time amoxicillin [From Augmentin] Allergy Intermediate rash Verified 07/27/22 16:25 cefuroxime [From CEFTIN] Allergy Intermediate RASH Verified 07/27/22 16:25 clavulanic acid Allergy Intermediate rash Verified 07/27/22 16:25 [From Augmentin] doxycycline [DOXYCYCLINE] Allergy Intermediate HIVES Verified 07/27/22 16:25 Sulfa (Sulfonamide Allergy Intermediate unknown Verified 07/27/22 16:25 Antibiotics) Physical Exam Vital signs: Vital Signs Temp 97.8 F 08/14/22 11:23 Pulse 85 08/14/22 11:23 Resp 20 08/14/22 11:23 BP 122/64 08/14/22 11:23 Pulse Ox 93 08/14/22 11:23 O2 Del Method 08/14/22 11:23 Intake & Output 08/13/22 08/14/22 08/14/22 18:59 06:59 18:59 Intake Total 150 / 270 120 / 270 240 / 240 Output Total 1500 / 1500 250 / 250 Balance -1350 / -1230 120 / -1230 -10 / -10 Urine Output (Average ml/kg/hr) 1.87 1.87 0.31 Intake: Intake, Oral Amount 120 / 120 240 / 240 Intake, IV Amount 150 / 150 Albumin Human 25 % 100 ml @ 100 100 / 100 mls/hr IV ONCE ONE Rx#: [id number] cefTRIAXone sodium 1 gm In 0.9 50 / 50 % Sodium Chloride 50 ml @ 100 mls/hr IV ONCE ONE Rx#: [id number] Output: Output, Urine Amount 1500 / 1500 250 / 250 Other: Breakfast % Eaten 100% Number of Incontinent Voids 1 Urine purewick Urine Color [place] Weight 66.678 kg Weight 66.678 kg - Constitutional Present: no acute distress - Routine HEENT Exam Head: Present: normal inspection Eye: Present: conjunctivae pale - Routine Neck Exam Present: supple. Absent: lymphadenopathy - Routine Respiratory Exam Present: CTAB. Absent: accessory muscle use - Routine Cardiovascular Exam Cardiovascular: Present: S1, S2 - Routine Abdominal Exam Present: soft - Routine Skin Exam Present: intact. Absent: cyanosis Hem/Onc Consult Result - Labs CBC & Chem 7: 08/13/22 10:44 08/13/22 10:44 Labs: Urine 08/13/22 Range/Units 12:33 Urine Color Yellow Urine Appearance Hazy Urine pH 8.5 (5.0-9.0) Ur Specific [place] 1.010 (1.005-1.025) Urine Protein Trace (Neg-Trace) mg/dL Urine Glucose (UA) Negative (Negative) mg/dL Assessment and Plan Patient Active problem list reviewed?: Yes (1) Metastasis from pancreatic cancer Status: Chronic Assessment and plan: 1. This is a pleasant 71-year-old woman presenting with metastatic pancreatic cancer diagnosed in May 2022. She had therapeutic and diagnostic paracentesis on 06/08/2022. Pathology revealed adenocarcinoma consistent with pancreatic primary. CA 19 9 levels 2824 units/mL. She was started on FOLFIRINOX regimen with 75% doses on 06/27/2022. Unfortunately she developed recurrent ascites, anasarca and subsequent renal insufficiency. She has required therapeutic paracentesis multiple times. Blood work today shows improvement in anemia and her kidney functions have normalized. It is not clear if she can manage at home, she was recently discharged to [facility] facility. I will discuss palliative chemotherapy versus hospice care upon discharge. I thank you for this consult. - Time Spent With Patient Time Spent with Patient (in minutes): 15
--- NOTE | 2022-08-14 12:57 | MHC.CM.PN ---
Female 71 DX Anasarca Came from [facility]. She lives w . She uses a walker. She states that she is independent with ADLs. She refesses to return to [facility]. She is requesting home with services. A referral has been sent to [facility]. Patient is calling family for transport home. No HCP on file. Patient states that she has a HCP. A copy has been requested. VAX x4 [employer].
[2022-08-14 15:32] LABS: Glucose, Whole Blood 143 mg/dL (60-115)
[2022-08-14] MEDS: oxyCODONE HCl Immed Release 5 MG TABLET PO (16:37)
== END 2022-08-14 19:32 | disposition home health service (06) ==
LOC: HO.ED 14:05 → HO.EDOVER 16:13 → HO.IMC 08-14 07:05
PROVIDERS: Physician Assistant; Radiology Diagnostic Radiology; Admitting Provider Internal Medicine; Emergency Provider Student in an Organized Health Care Education/Training Program; PCP Physician Assistant; Visit Provider Internal Medicine
DX: U07.1 COVID-19 (principal); N39.0 Urinary tract infection, site not specified; R60.1 Generalized edema; R06.02 Shortness of breath; C25.9 Malignant neoplasm of pancreas, unspecified; I10 Essential (primary) hypertension; R53.1 Weakness; E11.9 Type 2 diabetes mellitus without complications; R11.2 Nausea with vomiting, unspecified; Z20.822 Contact with and (suspected) exposure to COVID-19; Z79.899 Other long term (current) drug therapy; Z87.891 Personal history of nicotine dependence
CPT/HCPCS: 36415; 49083; 71045; 74176; 80048; 80076; 81001; 81003; 82042; 82945; 82947; 83690; 83735; 83880; 84157; 84484; 85025; 85610; 85730; 87070; 87073; 87086; 87205; 87635; 89051; 93005; 96372; 96374; 96375; 96376; 99219; 99285; J0696; J1650; J1940; J8540; P9047

== ENCOUNTER 2022-08-28 13:04 | Observation (INO) | payer MEDICARE, SELFPAY ==
[2022-08-28] VITALS (7 sets, daily range): BP systolic 93–146; BP diastolic 72–95; PULSE 66–119; RESP 14–20; TEMP 36.1–36.9; O2SAT 94–100; BMI 25.7
--- NOTE | ~2022-08-28 | XR_ITS ---
EXAMINATION: XR CHEST CLINICAL INFORMATION: Neutropenia. COMPARISON: Chest radiograph 08/13/2022. TECHNIQUE: Frontal view of the chest was obtained. FINDINGS: Stable appearance of the cardiomediastinal silhouette. A right-sided CT compatible chest port terminates at the level of the cavoatrial junction. EKG wires overlie the chest. A small amount of left-sided pleural fluid appears decreased compared to 08/13/2022. Mild subsegmental atelectasis in the left lower lobe are also improved. No new focal airspace opacity. No acute osseous abnormalities. XR/XR chest 1V IMPRESSION: 1. Decreased left-sided pleural effusion and left lower lobe subsegmental atelectasis compared to 08/13/2022. 2. No new focal airspace opacity.
--- NOTE | 2022-08-28 16:35 | ED_ITS ---
HPI - General Adult General Chief complaint: General Medical Stated complaint: WEAKNESS Time Seen by Provider: 08/28/22 16:20 Source: patient, EMS and old records reviewed Mode of arrival: EMS Limitations: no limitations History of Present Illness HPI narrative: 71 yo female with history of metastatic pancreatic cancer with ascites and peritoneal carcinomatosis diagnosed in May, currently on chemotherapy who p resents to the ER for evaluation of generalized weakness, decreased p.o. intake, nausea. She follows with Dr. Alston and her last chemo was on 08/20 - she received ?FOLFIRINOX regimen. She has had a few admissions to the hospital for abdominal distension, TONNY, weakness and anasarca. She was recently discharged on August 14. Patient reports for the last week or so she has felt weak, has not had any appetite with ongoing nausea. She was recently admitted the end of July where she contracted COVID-19 while hospitalized. She denies any cough or fevers at home. MD complaint: Generalized weakness Onset (ago): week(s) Location: abdomen Severity: moderate Quality: aching Pain Consistency: intermittent Relieving factors: none Exacerbating factors: none Associated symptoms: loss of appetite, malaise, shortness of breath and weakness Treatments prior to arrival: none Related Data Home Medications Medication Instructions Recorded Confirmed levothyroxine 50 mcg tablet 1 tab PO DAILY@0600 08/10/22 08/22/22 lorazepam 0.5 mg tablet 0.5 mg PO BEDTIME 08/10/22 08/22/22 metformin 500 mg tablet,extended 500 mg PO DAILY 08/10/22 08/22/22 release 24 hr potassium chloride 10 mEq 2 tab PO DAILY 08/10/22 08/22/22 tablet,extended release acetaminophen 300 mg-codeine 30 mg 1 tab PO Q8H PRN Pain 08/13/22 08/22/22 tablet aluminum-mag hydroxide-simethicone 5 ml PO Q6H PRN Indigestion 08/13/22 08/22/22 400 mg-400 mg-40 mg/5 mL oral susp (Laisha-Lanta) dexamethasone 4 mg tablet 4 mg PO DAILY 08/13/22 08/22/22 fluticasone propionate 50 1 spray intranasal DAILY 08/13/22 08/22/22 mcg/actuation nasal spray,suspension hydrocortisone 2.5 % topical cream 1 appl topical TID PRN Itching 08/13/22 08/22/22 latanoprost 0.005 % eye drops 1 drp ophthalmic (eye) QPM 08/13/22 08/22/22 methenamine hippurate 1 gram tablet 1 tab PO DAILY 08/13/22 08/22/22 multivitamin 1 tab PO DAILY 08/13/22 08/22/22 pantoprazole 40 mg tablet,delayed 1 tab PO DAILY 08/13/22 08/22/22 release simvastatin 40 mg tablet 40 mg PO BEDTIME 08/13/22 08/22/22 atenolol 25 mg tablet 0.5 tab PO DAILY 08/22/22 08/22/22 Previous Rx's Medication Instructions Recorded furosemide 20 mg tablet (Lasix) 20 mg PO DAILY #30 tabs 08/14/22 ondansetron HCl 4 mg tablet 1 tab PO Q8H PRN Nausea #60 tabs 08/16/22 oxycodone 5 mg tablet 1 tab PO TID PRN Pain #30 tabs 08/16/22 prochlorperazine maleate 10 mg 10 mg PO Q8H PRN Nausea And 08/23/22 tablet (Compazine) Vomiting #30 tabs Allergies Allergy/AdvReac Type Severity Reaction Status Date / Time amoxicillin [From Augmentin] Allergy Intermediate rash Verified 08/22/22 11:11 cefuroxime [From CEFTIN] Allergy Intermediate RASH Verified 08/22/22 11:11 clavulanic acid Allergy Intermediate rash Verified 08/22/22 11:11 [From Augmentin] doxycycline [DOXYCYCLINE] Allergy Intermediate HIVES Verified 08/22/22 11:11 Sulfa (Sulfonamide Allergy Intermediate unknown Verified 08/22/22 11:11 Antibiotics) [facility] Past Medical History Medical History (Updated 08/28/22 @ 17:37 by DEDE Casey) Acute sinusitis Anemia Ascites Carcinomatosis peritonei Cardiac arrhythmia Chest pain Diabetes Dysuria Dysuria Flank pain VERO (generalized anxiety disorder) GERD (gastroesophageal reflux disease) HLD (hyperlipidemia) HTN (hypertension) Hypothyroidism Left knee pain Leg edema Metastasis from pancreatic cancer Pancreatic adenocarcinoma Post-menopausal Recurrent UTI Rib pain on right side Sinusitis Urinary frequency Urinary tract infection UTI (urinary tract infection) Yeast infection of the vagina Surgical History H/O: hysterectomy History of cardiac radiofrequency ablation Family History Family History Father CVD (cardiovascular disease) Mother No problems noted. Social History Social History Household Members: Spouse Housing: House Do you presently have visiting nurse or other home services: No Alcohol intake: never Patient Tobacco Use Status: Former Tobacco user Tobacco use type: Cigarette e-Cigarette/Vaping Use: Never Used Second Hand Smoke Exposure: Yes Advance Directives: Yes Advance Directives on File: Yes Advance Directives Date on File: 06/21/22 service: No Current occupational status: retired Current occupation: rt handed Cognitive needs: No Hearing needs: No Vision needs: Yes Physical Exam ED Vital Signs: Vital Signs - 24 hr 08/28/22 14:57 08/28/22 15:36 08/28/22 18:26 Temperature 97.4 F 98.3 F 98.4 F Pulse Rate 119 H 114 H 92 Respiratory Rate 20 15 18 Blood Pressure 93/72 146/95 H 141/81 H Pulse Oximetry 100 94 100 Oxygen Delivery Method Room Air Room Air Room Air 08/28/22 18:30 Temperature 98.4 F Pulse Rate 87 Respiratory Rate 14 Blood Pressure 141/81 H Pulse Oximetry Oxygen Delivery Method BMI result Body Mass Index 25.7 Course Course Course Narrative: 71-year-old female with a complicated past medical history including recently diagnosed metastatic pancreatic cancer on chemotherapy, complicated by weakness, anemia, anasarca with recent admission for the same who presents to the ER for evaluation generalized weakness for the last week or so. Her last chemotherapy was on August 20. On examination she appears pale with conjunctival pallor. She denies signs or symptoms of GI bleeding. Concern for recurrent chemotherapy-induced anemia. H&H, coags, type and screen have been ordered. Anticipate she will require admission. Reevaluation(s) Reevaluation #1: H&H is 05/03 from 9.7/29.8. ANTONI with brown stool. Sent for occult testing. She also is neutropenic with ANC 300. No fevers. Platelets are in the 70s from 180 last week[address] Spoke with Dr. Beverly from heme/Onc who is recommending 300 of Granix today. This has been ordered. Patient has been consented for blood and will start with 1 unit of PRBC for transfusion. Reevaluation #2: Patient still tested positive for COVID , no longer with active disease. Hospitalist tiger text at for admission. Medications Administered Generic Name Dose Route Start Last Admin Trade Name Disha PRN Reason Stop Dose Admin Lactated Ringer's 1,000 mls @ 999 mls/hr 08/28/22 17:45 08/28/22 17:46 Lr IV 08/28/22 18:45 999 mls/hr .Q1H1M NUPUR Administration Medical Decision Making Lab Data Result diagrams: 08/28/22 17:05 08/28/22 17:05 Labs: Lab Results 08/28/22 08/28/22 08/28/22 Range/Units 17:03 17:03 17:04 WBC (4.8-10.8) X10*3/uL RBC (4.20-5.50) X10*6/uL Hgb (12.0-16.0) g/dl Hct (37.0-47.0) % MCV (80.0-98.0) fL MCH (27.0-33.0) pg MCHC (31.0-35.0) g/dl RDW (11.0-16.0) % Plt Count (160-400) X10*3/uL MPV (9.4-12.3) fL Immature Gran % (Auto) (0.0-0.4) % Neut % (Auto) (45-73) % Lymph % (Auto) (20-40) % Winston % (Auto) (2-11) % Eos % (Auto) (0-4) % Baso % (Auto) (0-2) % Lymph # (Auto) (1.2-4.9) X10*3/uL Winston # (Auto) (0.1-1.2) X10*3/uL Eos # (Auto) (0.0-0.4) X10*3/uL Baso # (Auto) (0.0-0.2) X10*3/uL Abs Immat Gran (auto) (0.00-0.03) X10*3/uL Absolute Neuts (auto) (2.0-8.3) x10*3/uL Absolute Nucleated RBC (0.0-0.012) X10*3/uL Nucleated RBC % (auto) (0.0-0.2) /100WBC Smear Tech's Comments PT 12.5 (10.0-13.1) SEC INR 1.1 (0.9-1.1) APTT 32.1 (26.0-36.4) SEC Sodium (135-145) mmol/L Potassium (3.3-5.1) mmol/L Chloride (96-108) mmol/L Carbon Dioxide (22-29) mmol/L Anion Gap (12-20) BUN (9-16) mg/dL Creatinine (0.5-1.4) mg/dL Estim Creat Clear Calc Estimated GFR Random Glucose (60-115) mg/dL Lactic Acid 0.7 (0.5-2.0) mmol/L Calcium (8.4-10.2) mg/dL Total Bilirubin (0.0-1.0) mg/dL Direct Bilirubin (0.0-0.5) mg/dL AST (5-31) U/L ALT (0-31) U/L Alkaline Phosphatase (39-117) U/L Total Protein (6.5-8.0) g/dL Albumin (3.5-5.0) g/dL Lipase (8-78) U/L Stool Occult Blood (NEGATIVE) COVID-19 (ARVIN) (Negative) COVID-19 Clin [facility] Blood Type O Negative Antibody Screen NEGATIVE Crossmatch See Detail 08/28/22 08/28/22 08/28/22 Range/Units 17:05 17:05 17:41 WBC 1.8 L (4.8-10.8) X10*3/uL RBC 2.57 L D (4.20-5.50) X10*6/uL Hgb 7.0 L* D (12.0-16.0) g/dl Hct 21.2 L D (37.0-47.0) % MCV 82.5 (80.0-98.0) fL MCH 27.2 (27.0-33.0) pg MCHC 33.0 (31.0-35.0) g/dl RDW 17.8 H (11.0-16.0) % Plt Count 72 L D (160-400) X10*3/uL MPV 9.4 (9.4-12.3) fL Immature Gran % (Auto) 1.7 H (0.0-0.4) % Neut % (Auto) 16.7 L (45-73) % Lymph % (Auto) 78.2 H (20-40) % Winston % (Auto) 2.2 (2-11) % Eos % (Auto) 0.6 (0-4) % Baso % (Auto) 0.6 (0-2) % Lymph # (Auto) 1.4 (1.2-4.9) X10*3/uL Winston # (Auto) 0.0 L (0.1-1.2) X10*3/uL Eos # (Auto) 0.0 (0.0-0.4) X10*3/uL Baso # (Auto) 0.0 (0.0-0.2) X10*3/uL Abs Immat Gran (auto) 0.03 (0.00-0.03) X10*3/uL Absolute Neuts (auto) 0.3 L (2.0-8.3) x10*3/uL Absolute Nucleated RBC 0.000 (0.0-0.012) X10*3/uL Nucleated RBC % (auto) 0.0 (0.0-0.2) /100WBC Smear Tech's Comments VERIFIED PT (10.0-13.1) SEC INR (0.9-1.1) APTT (26.0-36.4) SEC Sodium 136 (135-145) mmol/L Potassium 4.2 D (3.3-5.1) mmol/L Chloride 105 (96-108) mmol/L Carbon Dioxide 21 L (22-29) mmol/L Anion Gap 14 (12-20) BUN 17 H D (9-16) mg/dL Creatinine 0.80 (0.5-1.4) mg/dL Estim Creat Clear Calc 57.9 Estimated GFR > 60 Random Glucose 148 H (60-115) mg/dL Lactic Acid (0.5-2.0) mmol/L Calcium 8.6 (8.4-10.2) mg/dL Total Bilirubin 0.8 (0.0-1.0) mg/dL Direct Bilirubin 0.4 (0.0-0.5) mg/dL AST 9 D (5-31) U/L ALT 10 (0-31) U/L Alkaline Phosphatase 121 H D (39-117) U/L Total Protein 5.4 L (6.5-8.0) g/dL Albumin 3.3 L (3.5-5.0) g/dL Lipase 12 (8-78) U/L Stool Occult Blood (NEGATIVE) COVID-19 (ARVIN) Positive A (Negative) COVID-19 Clin Com See Note Blood Type Antibody Screen Crossmatch 08/28/22 Range/Units 17:41 WBC (4.8-10.8) X10*3/uL RBC (4.20-5.50) X10*6/uL Hgb (12.0-16.0) g/dl Hct (37.0-47.0) % MCV (80.0-98.0) fL MCH (27.0-33.0) pg MCHC (31.0-35.0) g/dl RDW (11.0-16.0) % Plt Count (160-400) X10*3/uL MPV (9.4-12.3) fL Immature Gran % (Auto) (0.0-0.4) % Neut % (Auto) (45-73) % Lymph % (Auto) (20-40) % Winston % (Auto) (2-11) % Eos % (Auto) (0-4) % Baso % (Auto) (0-2) % Lymph # (Auto) (1.2-4.9) X10*3/uL Winston # (Auto) (0.1-1.2) X10*3/uL Eos # (Auto) (0.0-0.4) X10*3/uL Baso # (Auto) (0.0-0.2) X10*3/uL Abs Immat Gran (auto) (0.00-0.03) X10*3/uL Absolute Neuts (auto) (2.0-8.3) x10*3/uL Absolute Nucleated RBC (0.0-0.012) X10*3/uL Nucleated RBC % (auto) (0.0-0.2) /100WBC Smear Tech's Comments PT (10.0-13.1) SEC INR (0.9-1.1) APTT (26.0-36.4) SEC Sodium (135-145) mmol/L Potassium (3.3-5.1) mmol/L Chloride (96-108) mmol/L Carbon Dioxide (22-29) mmol/L Anion Gap (12-20) BUN (9-16) mg/dL Creatinine (0.5-1.4) mg/dL Estim Creat Clear Calc Estimated GFR Random Glucose (60-115) mg/dL Lactic Acid (0.5-2.0) mmol/L Calcium (8.4-10.2) mg/dL Total Bilirubin (0.0-1.0) mg/dL Direct Bilirubin (0.0-0.5) mg/dL AST (5-31) U/L ALT (0-31) U/L Alkaline Phosphatase (39-117) U/L Total Protein (6.5-8.0) g/dL Albumin (3.5-5.0) g/dL Lipase (8-78) U/L Stool Occult Blood NEGATIVE (NEGATIVE) COVID-19 (ARVIN) (Negative) COVID-19 Clin Com Blood Type Antibody Screen Crossmatch ECG Data Attestation: I personally reviewed and interpreted this ECG as follows: Prior ECG tracings: available for review Interpretation: Sinus tachycardia, ventricular rate 101 beats per minute, normal NE interval, normal QTC, no ST segment elevations or depressions. Critical Care Time Critical Care Time Critical Care Time: Yes Total Critical Care Time: 42 Attestation: I have personally provided critical care time exclusive of time spent on separately billable procedures. Time includes review of lab data, radiology results, discussion with consultants, and monitoring for potential decompensation. Intervention performed as documented. Discharge Plan Discharge Clinical Impression: Pancytopenia due to chemotherapy, Symptomatic anemia Patient Disposition: Admitted As Inpatient
--- NOTE | 2022-08-28 17:09 | PC.NURSE ---
Pt alert/oriented x3, however needs frequent reminders. Skin pale, and jaundiced. C/O weakness x 1 week since Chemo. NSR on monitor. Right chest power port accessed, +blood return. ANd sl distended with some bruising noted. C/O 7/10 abd pain and mild nausea, no vomiting and no appetite.
[2022-08-28 17:17] LABS: Basophils Percent Auto 0.6 % (0-2); Eosinophils Percent Auto 0.6 % (0-4); Hematocrit 21.2 % (37.0-47.0); Imm Gran Abs Auto 0.03 X10*3/uL (0.00-0.03); Imm Gran Pct Auto 1.7 % (0.0-0.4); Lymphocytes Absolute Auto 1.4 X10*3/uL (1.2-4.9); Lymphocytes Percent Auto 78.2 % (20-40); MANUAL DIFF FLAG SCAN; Mean Corpuscular Hemoglobin 27.2 pg (27.0-33.0); Mean Corpuscular Volume 82.5 fL (80.0-98.0); Mean Platelet Volume 9.4 fL (9.4-12.3); Monocytes Percent Auto 2.2 % (2-11); Neutrophils Absolute Auto 0.3 x10*3/uL (2.0-8.3); Neutrophils Percent Auto 16.7 % (45-73); Red Blood Count 2.57 X10*6/uL (4.20-5.50); Red Cell Distribution Width 17.8 % (11.0-16.0); SCAN SMEAR FLAG 1
[2022-08-28 17:22] LABS: Lactic Acid 0.7 mmol/L (0.5-2.0)
[2022-08-28 17:22] LABS: White Blood Count 1.8 X10*3/uL (4.8-10.8)
[2022-08-28 17:23] LABS: Platelet Count 72 X10*3/uL (160-400)
--- NOTE | 2022-08-28 17:34 | ECG_ITS ---
Test Reason : WEAKNESS Blood Pressure : / mmHG Vent. Rate : 101 BPM Atrial Rate : 101 BPM P-R Int : 178 ms QRS Dur : 070 ms QT Int : 336 ms P-R-T Axes : 051 007 032 degrees QTc Int : 435 ms Sinus tachycardia Nonspecific ST abnormality Abnormal ECG When compared with ECG of 13-AUG-2022 10:41, No significant change was found Referred By: Reina Garcia Electronically Signed By:HENRI CHEN MD
[2022-08-28 17:40] LABS: SLIDE REVIEW VERIFIED
[2022-08-28 17:41] LABS: INTERNATIONAL NORM RATIO 1.1 (0.9-1.1); Prothrombin Time 12.5 SEC (10.0-13.1)
[2022-08-28 17:44] LABS: Partial Thromboplastin Time 32.1 SEC (26.0-36.4)
[2022-08-28] MEDS: Lactated Ringers 1,000 ML 999 ML IV (17:46)
[2022-08-28 18:06] LABS: OBS Int Ctl Valid YES; OBS1 NEGATIVE (NEGATIVE)
[2022-08-28 18:08] LABS: Alanine Aminotransferase 10 U/L (0-31); Albumin Level 3.3 g/dL (3.5-5.0); Alkaline Phosphatase 121 U/L (39-117); Anion Gap 14 (12-20); Aspartate Amino Transferase 9 U/L (5-31); Bilirubin Direct 0.4 mg/dL (0.0-0.5); Bilirubin Total 0.8 mg/dL (0.0-1.0); Blood Urea Nitrogen 17 mg/dL (9-16); Calcium 8.6 mg/dL (8.4-10.2); Carbon Dioxide 21 mmol/L (22-29); Chloride 105 mmol/L (96-108); Creatinine Clr Calc Pharmacy 57.9; Estimated Glomerular Filt Rate > 60; Glucose Random 148 mg/dL (60-115); Lipase 12 U/L (8-78); Potassium 4.2 mmol/L (3.3-5.1); Sodium 136 mmol/L (135-145); Total Protein 5.4 g/dL (6.5-8.0)
[2022-08-28 18:08] LABS: IDNOW Serial# 16C4AD1C
[2022-08-28 18:11] LABS: COVID-19 Test Positive (Negative)
[2022-08-28] MEDS: Tbo-Filgrastim 300 MCG/0.5 ML SYRINGE SUBCUT (18:37)
--- NOTE | 2022-08-28 18:51 | PC.NURSE ---
pt. alert and oriented x 3. skin pale and cool to the touch. blood infusing. pt tolerated it well so far. VS similar to vs before transfusion started. gave her tbo-filgrastim subq.
--- NOTE | 2022-08-28 19:34 | PM.IMHP ---
History of Present Illness Date of Service: 08/28/22 Attending physician on admission: Jalen Palma Chief Complaint: weakness, anemia, pancytopenia 71-year-old female with a past medical history of hypertension, hyperlipidemia, diabetes, hypothyroidism, anemia, history of metastatic pancreatic cancer with peritoneal carcinomatosis, ascites, anxiety, depression was sent in from rehab facility for evaluation of generalized weakness, decreased p.o. intake, nausea, and abdominal pain. She follows with Dr. Alston in Oncology, last chemotherapy was 08/20, received FOLFIRONOX regimen. For the last week or so, has felt weaker with decreased appetite and ongoing nausea. Recommended for admission by Oncology due to symptomatic pancytopenia and anemia with WBC 1.8, RBC 2.57, H/H 7.0/21.2% (last measured 08/20 WBC 5.9, RBC 3.62, H/H 9.7/29.8 %). Renal function baseline, electrolyte levels normal. AST 9, ALT 10, alk-phos 121, albumin 3.3, total protein 5.4. Troponin pending. COVID-19 test is positive but has been positive since 08/10/2022. VSS, no hypoxia. In the ED, received 1 unit packed red blood cells and Granix 300 mcg as well as 1 L LR bolus. Patient to be observed for symptomatic pancytopenia. Review of Systems Review of Systems: General: No fevers, malaise, unintentional weight loss. +generalized weakness HEENT: No blurred vision, diplopia. No sore throat, nasal congestion, rhinorrhea, sinus pain, ear pain Cardiovascular: No chest pain, palpitations, or leg edema Respiratory: No shortness of breath, wheezing, cough GI: +abdominal pain, +nausea. No vomiting, diarrhea, constipation, melena, hematochezia : No dysuria, hematuria, increased urinary frequency, decreased urinary output MSK: No myalgia, back pain Neuro: No headaches, weakness, paresthesias Skin: No rashes or lesions [facility] Medical History (Updated 08/28/22 @ 17:37 by DEDE Casey) Acute sinusitis Anemia Ascites Carcinomatosis peritonei Cardiac arrhythmia Chest pain Diabetes Dysuria Dysuria Flank pain VERO (generalized anxiety disorder) GERD (gastroesophageal reflux disease) HLD (hyperlipidemia) HTN (hypertension) Hypothyroidism Left knee pain Leg edema Metastasis from pancreatic cancer Pancreatic adenocarcinoma Post-menopausal Recurrent UTI Rib pain on right side Sinusitis Urinary frequency Urinary tract infection UTI (urinary tract infection) Yeast infection of the vagina Family History Father CVD (cardiovascular disease) Mother No problems noted. Surgical History H/O: hysterectomy History of cardiac radiofrequency ablation Social History Household Members: Spouse Housing: House Do you presently have visiting nurse or other home services: No Alcohol intake: never Patient Tobacco Use Status: Former Tobacco user Tobacco use type: Cigarette e-Cigarette/Vaping Use: Never Used Second Hand Smoke Exposure: Yes Advance Directives: Yes Advance Directives on File: Yes Advance Directives Date on File: 06/21/22 service: No Current occupational status: retired Current occupation: rt handed Cognitive needs: No Hearing needs: No Vision needs: Yes Meds Allergies Allergy/AdvReac Type Severity Reaction Status Date / Time amoxicillin [From Augmentin] Allergy Intermediate rash Verified 08/22/22 11:11 cefuroxime [From CEFTIN] Allergy Intermediate RASH Verified 08/22/22 11:11 clavulanic acid Allergy Intermediate rash Verified 08/22/22 11:11 [From Augmentin] doxycycline [DOXYCYCLINE] Allergy Intermediate HIVES Verified 08/22/22 11:11 Sulfa (Sulfonamide Allergy Intermediate unknown Verified 08/22/22 11:11 Antibiotics) Active Medications: Current Medications Pharmacy Consult (Consult Rx Perform Med Rec) 1 each MISCELLANE ONCE PRN PRN Reason: Consult order Home Medications Medication Instructions Recorded Confirmed Last Taken Type levothyroxine 50 mcg tablet 1 tab PO DAILY@0600 08/10/22 08/22/22 Unknown History lorazepam 0.5 mg tablet 0.5 mg PO BEDTIME 08/10/22 08/22/22 Unknown History metformin 500 mg tablet,extended 500 mg PO DAILY 08/10/22 08/22/22 Unknown History release 24 hr potassium chloride 10 mEq 2 tab PO DAILY 08/10/22 08/22/22 Unknown History tablet,extended release acetaminophen 300 mg-codeine 30 mg 1 tab PO Q8H PRN Pain 08/13/22 08/22/22 Unknown History tablet aluminum-mag hydroxide-simethicone 5 ml PO Q6H PRN Indigestion 08/13/22 08/22/22 Unknown History 400 mg-400 mg-40 mg/5 mL oral susp (Laisha-Lanta) dexamethasone 4 mg tablet 4 mg PO DAILY 08/13/22 08/22/22 Unknown History fluticasone propionate 50 1 spray intranasal DAILY 08/13/22 08/22/22 Unknown History mcg/actuation nasal spray,suspension hydrocortisone 2.5 % topical cream 1 appl topical TID PRN Itching 08/13/22 08/22/22 Unknown History latanoprost 0.005 % eye drops 1 drp ophthalmic (eye) QPM 08/13/22 08/22/22 Unknown History methenamine hippurate 1 gram tablet 1 tab PO DAILY 08/13/22 08/22/22 Unknown History multivitamin 1 tab PO DAILY 08/13/22 08/22/22 Unknown History pantoprazole 40 mg tablet,delayed 1 tab PO DAILY 08/13/22 08/22/22 Unknown History release simvastatin 40 mg tablet 40 mg PO BEDTIME 08/13/22 08/22/22 Unknown History atenolol 25 mg tablet 0.5 tab PO DAILY 08/22/22 08/22/22 Unknown History Physical Exam Vital Signs and Narrative: Vital Signs: Last Vital Signs Temp 98.3 F 08/28/22 18:50 Pulse 97 08/28/22 18:50 Resp 18 08/28/22 18:50 BP 141/85 H 08/28/22 18:50 Pulse Ox 100 08/28/22 18:26 O2 Del Method 08/28/22 18:26 BMI result Body Mass Index 25.7 Constitutional - Awake and Alert, Pallor, No apparent distress Eyes - PERRLA, EOMI Cardiovascular - S1S2, RRR, No edema Respiratory - Normal lung expansion, Normal respiratory effort, No respiratory distress, CTA bilaterally Gastrointestinal - softly distended abdomen with mild tenderness to palpation in the upper quadrants. +BS; No rebound or guarding Extremities - no calf tenderness bilaterally, no swelling Skin - Warm/Dry Neurological - Alert & oriented x3, CN II-XII in tact, 5/5 strength BUE and BLE Psychological - Appropriate affect Results Labs CBC and Chem 7: 08/28/22 17:05 08/28/22 17:05 Labs: Laboratory Results - last 24 hr 08/28/22 08/28/22 08/28/22 17:03 17:03 17:04 MCV MCH MCHC RDW Plt Count MPV Immature Gran % (Auto) Neut % (Auto) Lymph % (Auto) Gilchrist % (Auto) Eos % (Auto) Baso % (Auto) Lymph # (Auto) Gilchrist # (Auto) Eos # (Auto) Baso # (Auto) Abs Immat Gran (auto) Absolute Neuts (auto) Absolute Nucleated RBC Nucleated RBC % (auto) Smear Tech's Comments PT 12.5 INR 1.1 APTT 32.1 Anion Gap Estim Creat Clear Calc Estimated GFR Random Glucose Lactic Acid 0.7 Calcium Total Bilirubin Direct Bilirubin AST ALT Alkaline Phosphatase Total Protein Albumin Lipase Stool Occult Blood COVID-19 (ARVIN) COVID-[employer] Com Blood Type O Negative Antibody Screen NEGATIVE Crossmatch See Detail 08/28/22 08/28/22 08/28/22 17:05 17:05 17:41 MCV 82.5 MCH 27.2 MCHC 33.0 RDW 17.8 H Plt Count 72 L D MPV 9.4 Immature Gran % (Auto) 1.7 H Neut % (Auto) 16.7 L Lymph % (Auto) 78.2 H Gilchrist % (Auto) 2.2 Eos % (Auto) 0.6 Baso % (Auto) 0.6 Lymph # (Auto) 1.4 Gilchrist # (Auto) 0.0 L Eos # (Auto) 0.0 Baso # (Auto) 0.0 Abs Immat Gran (auto) 0.03 Absolute Neuts (auto) 0.3 L Absolute Nucleated RBC 0.000 Nucleated RBC % (auto) 0.0 Smear Tech's Comments VERIFIED PT INR APTT Anion Gap 14 Estim Creat Clear Calc 57.9 Estimated GFR > 60 Random Glucose 148 H Lactic Acid Calcium 8.6 Total Bilirubin 0.8 Direct Bilirubin 0.4 AST 9 D ALT 10 Alkaline Phosphatase 121 H D Total Protein 5.4 L Albumin 3.3 L Lipase 12 Stool Occult Blood COVID-19 (ARVIN) Positive A [facility] Com See Note Blood Type Antibody Screen Crossmatch 08/28/22 17:41 MCV MCH MCHC RDW Plt Count MPV Immature Gran % (Auto) Neut % (Auto) Lymph % (Auto) Gilchrist % (Auto) Eos % (Auto) Baso % (Auto) Lymph # (Auto) Gilchrist # (Auto) Eos # (Auto) Baso # (Auto) Abs Immat Gran (auto) Absolute Neuts (auto) Absolute Nucleated RBC Nucleated RBC % (auto) Smear Tech's Comments PT INR APTT Anion Gap Estim Creat Clear Calc Estimated GFR Random Glucose Lactic Acid Calcium Total Bilirubin Direct Bilirubin AST ALT Alkaline Phosphatase Total Protein Albumin Lipase Stool Occult Blood NEGATIVE COVID-19 (ARVIN) COVID-19 Clin Com Blood Type Antibody Screen Crossmatch Imaging Radiologist's Impressions: Impressions Chest X-Ray 08/28/22 18:20 IMPRESSION: 1. Decreased left-sided pleural effusion and left lower lobe subsegmental atelectasis compared to 08/13/2022. 2. No new focal airspace opacity. Assessment and Plan (1) Pancytopenia due to chemotherapy: Status: Acute (2) Symptomatic anemia: Status: Acute (3) Pancreatic adenocarcinoma: Status: Acute Plan 71-year-old female with a past medical history of hypertension, hyperlipidemia, diabetes, hypothyroidism, anemia, history of metastatic pancreatic cancer with peritoneal carcinomatosis, ascites, anxiety, depression?to be observed for pancytopnea requiring granix and transfusion #pancytopenia- secondary to metastatic pancreatic cancer -received 1 unit packed red blood cells in the -Granix administration per Oncology -follow CBC # COVID-19 -has been tested positive for COVID-19 since 08/10/2022 -asymptomatic without hypoxia -symptomatic management -droplet/contact precautions # metastatic pancreatic cancer with pancytopenia and history ascites due to low protein -as above -outpatient follow-up with Oncology -pain management using pain scale -ondansetron and Compazine p.r.n. for nausea -continue Lasix for ascites # [id number] type 2 diabetes -POC glucose -Humalog on sliding scale -diabetic diet # hypothyroidism -continue Synthroid ?DVT prophylaxis with Lovenox ?full code Quality Stroke Does the patient have a stroke diagnosis?: No VTE Prior VTE?: No VTE Risk Level:: Medical - moderate - high VTE Device Contraindication: Treatment Not Indicated VTE Drug Contraindication: Treatment Not Indicated
--- NOTE | 2022-08-28 19:35 | PC.NURSE ---
patient alert, able to make needs known. RBCs running. call flores within reach. will continue to round hourly..
[2022-08-28 19:43] LABS: Troponin-I High Sensitivity 6.9 ng/L (<3.5-17.0)
[2022-08-28] MEDS: oxyCODONE HCl Immed Release 5 MG TABLET PO (20:03)
[2022-08-28] MEDS: ondansetron HCL 4 MG/2 ML VIAL IVPUSH (20:03)
--- NOTE | 2022-08-28 20:16 | PHA.MEDREC ---
med rec complete, patient was supposed to start lasix upon last discharge, per patient she has not started this and did not seem to realize she was supposed to Pharmacy Consult ? Medication Reconciliation Pharmacy has completed the medication reconciliation.
[2022-08-28] MEDS: Enoxaparin Sodium 40 MG/0.4 ML SYRINGE SUBCUT (21:08)
[2022-08-28] MEDS: Magnesium Hydrox/Alum Hydrox 30 ML ORAL.SUSP 15 ML PO (21:08)
[2022-08-28] MEDS: Melatonin 3 MG TABLET PO (21:09)
[2022-08-28] MEDS: LORazepam 0.5 MG TABLET PO (21:09)
[2022-08-28] MEDS: Atorvastatin Calcium 20 MG TABLET PO (21:09)
[2022-08-28] MEDS: HYDROmorphone HCl 0.5 MG/0.5 ML SYRINGE 0.25 MG IVPUSH (21:09)
[2022-08-28] MEDS: 0.9 % Sodium Chloride Flush 3 ML SYRINGE IVFLUSH (23:51)
[2022-08-29] VITALS (9 sets, daily range): BP systolic 113–132; BP diastolic 62–79; PULSE 77–97; RESP 16–20; TEMP 36.2–36.8; O2SAT 96–100
[2022-08-29] MEDS: HYDROmorphone HCl 0.5 MG/0.5 ML SYRINGE 0.25 MG IVPUSH (01:45)
[2022-08-29] MEDS: Omeprazole 20 MG CAPSULE.DR PO (06:22)
[2022-08-29] MEDS: Levothyroxine Sodium 50 MCG TABLET PO (06:22)
[2022-08-29 07:11] LABS: Eosinophils Percent Auto 0.4 % (0-4); Hematocrit 22.6 % (37.0-47.0); Hemoglobin 7.5 g/dl (12.0-16.0); Lymphocytes Absolute Auto 2.1 X10*3/uL (1.2-4.9); Lymphocytes Percent Auto 95.5 % (20-40); MANUAL DIFF FLAG SCAN; Mean Corpuscular HGB Conc 33.2 g/dl (31.0-35.0); Mean Corpuscular Hemoglobin 27.8 pg (27.0-33.0); Mean Corpuscular Volume 83.7 fL (80.0-98.0); Mean Platelet Volume 9.7 fL (9.4-12.3); Monocytes Percent Auto 0.9 % (2-11); Neutrophils Absolute Auto 0.1 x10*3/uL (2.0-8.3); Neutrophils Percent Auto 3.2 % (45-73); Red Cell Distribution Width 17.3 % (11.0-16.0); SCAN SMEAR FLAG 1
[2022-08-29] MEDS: 0.9 % Sodium Chloride Flush 3 ML SYRINGE IVFLUSH ×3 (07:24→22:39)
[2022-08-29] MEDS: metFORMIN HCl ER 500 MG TAB.ER.24H 1000 MG PO ×2 (07:24→18:53)
[2022-08-29 07:28] LABS: Platelet Count 61 X10*3/uL (160-400); White Blood Count 2.2 X10*3/uL (4.8-10.8)
[2022-08-29 07:29] LABS: Anion Gap 12 (12-20); Blood Urea Nitrogen 16 mg/dL (9-16); Calcium 8.1 mg/dL (8.4-10.2); Carbon Dioxide 23 mmol/L (22-29); Chloride 105 mmol/L (96-108); Creatinine Clr Calc Pharmacy 68.2; Estimated Glomerular Filt Rate > 60; Glucose Random 107 mg/dL (60-115); Potassium 3.8 mmol/L (3.3-5.1); Sodium 136 mmol/L (135-145)
[2022-08-29 07:47] LABS: SLIDE REVIEW VERIFIED
[2022-08-29] MEDS: lisinopriL 2.5 MG TABLET PO (08:10)
[2022-08-29] MEDS: atenoloL 25 MG TABLET 12.5 MG PO (08:10)
[2022-08-29] MEDS: Multivitamin TABLET 1 TAB PO (08:10)
--- NOTE | 2022-08-29 08:30 | PM.HEMONCCN ---
Subjective - Subjective Chief complaint: Weakness Patient: new to practice Consult date: 08/29/22 Primary Care Provider: Unknown Physician HPI - Consult Narrative Reason for consult: patient with pancreatic cancer, on chemotherapy Narrative: Izabela Pitt is a 71 year old female with advanced/ metastatic pancreatic cancer who has been on palliative chemotherapy. She has had many treatment interruptions because of her frail health and admissions to the hospital. Her last chemotherapy was on August 20. She says a few days after treatment she developed anorexia mild diarrhea and became weaker. She presented to the ED with complaints of nausea, poor appetite and generalized weakness. Blood work revealed pancytopenia with hemoglobin of 7 gram/dL, she received 1 unit PRBC and Granix for neutropenia. She says she is feeling a little better, she was able to eat some breakfast. She reports distention of abdomen and mild discomfort but no significant tenderness. No fever or chills. No diarrhea at this time. Review of Systems - Constitutional Reports as per HPI, Reports no additional constitutional complaints - Cardiovascular Reports no additional cardiovascular complaints - Respiratory Reports no additional respiratory complaints [facility] Medical History: Medical History (Last Reviewed 08/22/22 @ 11:11 by John Lentz RN) Acute sinusitis Anemia Ascites Carcinomatosis peritonei Cardiac arrhythmia Chest pain Diabetes Dysuria Dysuria Flank pain VERO (generalized anxiety disorder) GERD (gastroesophageal reflux disease) HLD (hyperlipidemia) HTN (hypertension) Hypothyroidism Left knee pain Leg edema Metastasis from pancreatic cancer Pancreatic adenocarcinoma Post-menopausal Recurrent UTI Rib pain on right side Sinusitis Urinary frequency Urinary tract infection UTI (urinary tract infection) Yeast infection of the vagina Family History: Family History (Last Reviewed 08/22/22 @ 11:11 by John Lentz RN) Father CVD (cardiovascular disease) Mother No problems noted. Surgical History: Surgical History (Last Reviewed 08/22/22 @ 11:11 by John Lentz RN) H/O: hysterectomy History of cardiac radiofrequency ablation Social History: Social History (Last Reviewed 08/22/22 @ 11:11 by John Lentz RN) Living Situation History: Household Members: Spouse Housing: House Do you presently have visiting nurse or other home services: No Tobacco History: Patient Tobacco Use Status: Former Tobacco user Tobacco use type: Cigarette e-Cigarette/Vaping Use: Never Used Second Hand Smoke Exposure: Yes Advance Directives: Advance Directives: Yes Advance Directives on File: Yes Advance Directives Date on File: 06/21/22 Occupation Assessmet: service: No Current occupational status: retired Current occupation: rt handed Home Medications and Allergies Current Medications: Current Medications Acetaminophen (Acetaminophen 325 Mg Tablet) 650 mg PO Q6H PRN PRN Reason: Pain, Mild (Pain Scale 1-3) Al Hydroxide/Mg Hydroxide (Magnesium Hydrox/Alum Hydrox 30 Ml Oral.Susp) 15 ml PO Q6H PRN PRN Reason: Dyspepsia Last Admin: 08/28/22 21:08 Dose: 15 ml Al Hydroxide/Mg Hydroxide (Magnesium Hydrox/Alum Hydrox 30 Ml Oral.Susp) 5 ml PO Q6H PRN PRN Reason: Indigestion Atenolol (Atenolol 25 Mg Tablet) 12.5 mg PO DAILY [facility]; Protocol Last Admin: 08/29/22 08:10 Dose: 12.5 mg Atorvastatin Calcium (Atorvastatin Calcium 20 Mg Tablet) 20 mg PO BEDTIME [facility] Last Admin: 08/28/22 21:09 Dose: 20 mg Enoxaparin Sodium (Enoxaparin Sodium 40 Mg/0.4 Ml Syringe) 40 mg SUBCUT Q24H [facility] Last Admin: 08/28/22 21:08 Dose: 40 mg Estradiol (Estradiol 0.5 Mg Tablet) 0.5 mg PO DAILY [facility] Fluticasone Propionate (Fluticasone Propionate Nasal 16 Gm [place]) 1 spray NOSTRIL-B DAILY [facility] Last Admin: 08/29/22 08:11 Dose: Not Given Hydromorphone HCl (Hydromorphone Hcl 0.5 Mg/0.5 Ml Syringe) 0.25 mg IVPUSH Q4H PRN; Protocol PRN Reason: Pain, Severe (Pain Scale 7-10) Last Admin: 08/29/22 01:45 Dose: 0.25 mg Latanoprost (Latanoprost 0.005 % Ophth Carly 2.5 Ml Drops) 1 drop EYE-BOTH BEDTIME [facility] Last Admin: 08/28/22 21:10 Dose: Not Given Levothyroxine Sodium (Levothyroxine Sodium 50 Mcg Tablet) 50 mcg PO DAILY@0600 [facility] Last Admin: 08/29/22 06:22 Dose: 50 mcg Lisinopril (Lisinopril 2.5 Mg Tablet) 2.5 mg PO DAILY [facility]; Protocol Last Admin: 08/29/22 08:10 Dose: 2.5 mg Lorazepam (Lorazepam 0.5 Mg Tablet) 0.5 mg PO BEDTIME PRN PRN Reason: Anxiety Last Admin: 08/28/22 21:09 Dose: 0.5 mg Melatonin (Melatonin 3 Mg Tablet) 3 mg PO BEDTIME PRN PRN Reason: Sleep Last Admin: 08/28/22 21:09 Dose: 3 mg Metformin HCl (Metformin Hcl Er 500 Mg Tab.Er.24h) 1,000 mg PO BIDWM [facility] Last Admin: 08/29/22 07:24 Dose: 1,000 mg Multivitamins/Vitamin C (Multivitamin Tablet) 1 tab PO DAILY [facility] Last Admin: 08/29/22 08:10 Dose: 1 tab Omeprazole (Omeprazole 20 Mg Capsule.Dr) 20 mg PO DAILY@0630 [facility] Last Admin: 08/29/22 06:22 Dose: 20 mg Ondansetron HCl (Ondansetron Hcl 4 Mg/2 Ml Vial) 4 mg IVPUSH Q8H PRN PRN Reason: Nausea and Vomiting Last Admin: 08/28/22 20:03 Dose: 4 mg Oxycodone HCl (Oxycodone Hcl Immed Release 5 Mg Tablet) 5 mg PO Q6H PRN PRN Reason: Pain, Moderate (Pain Scale 4-6 Last Admin: 08/28/22 20:03 Dose: 5 mg Pharmacy Consult (Consult Rx Perform Med Rec) 1 each MISCELLANE ONCE PRN PRN Reason: Consult order Prochlorperazine Maleate (Prochlorperazine Maleate 5 Mg Tablet) 10 mg PO Q8H PRN PRN Reason: Nausea And Vomiting Senna (Sennosides 8.6 Mg Tablet) 17.2 mg PO BEDTIME PRN PRN Reason: Constipation Sodium Chloride (0.9 % Sodium Chloride Flush 3 Ml Syringe) 3 ml IVFLUSH QSHIFT [facility] Last Admin: 08/29/22 07:24 Dose: 3 ml Home Medications Medication Instructions Recorded Confirmed Type levothyroxine 50 mcg tablet 1 tab PO DAILY@0600 08/10/22 08/28/22 History lorazepam 0.5 mg tablet 0.5 mg PO BEDTIME PRN Anxiety 08/10/22 08/28/22 History metformin 500 mg tablet,extended 1,000 mg PO BID 08/10/22 08/28/22 History release 24 hr potassium chloride 10 mEq 2 tab PO DAILY 08/10/22 08/22/22 History tablet,extended release acetaminophen 300 mg-codeine 30 mg 1 tab PO Q8H PRN Pain 08/13/22 08/28/22 History tablet aluminum-mag hydroxide-simethicone 5 ml PO Q6H PRN Indigestion 08/13/22 08/28/22 History 400 mg-400 mg-40 mg/5 mL oral susp (Laisha-Lanta) dexamethasone 4 mg tablet See Rx Instructions .Route .COMPLEX 08/13/22 08/28/22 History fluticasone propionate 50 1 spray intranasal DAILY 08/13/22 08/28/22 History mcg/actuation nasal spray,suspension latanoprost 0.005 % eye drops 1 drp ophthalmic (eye) QPM 08/13/22 08/28/22 History multivitamin 1 tab PO DAILY 08/13/22 08/28/22 History pantoprazole 40 mg tablet,delayed 1 tab PO DAILY 08/13/22 08/28/22 History release simvastatin 40 mg tablet 40 mg PO BEDTIME 08/13/22 08/28/22 History atenolol 25 mg tablet 0.5 tab PO DAILY 08/22/22 08/28/22 History estradiol 0.5 mg tablet 0.5 mg PO DAILY 08/28/22 08/28/22 History lisinopril 2.5 mg tablet 2.5 mg PO DAILY 08/28/22 08/28/22 History melatonin 3 mg tablet 3 mg PO BEDTIME PRN Sleep 08/28/22 08/28/22 History Allergies Allergy/AdvReac Type Severity Reaction Status Date / Time amoxicillin [From Augmentin] Allergy Intermediate rash Verified 08/22/22 11:11 cefuroxime [From CEFTIN] Allergy Intermediate RASH Verified 08/22/22 11:11 clavulanic acid Allergy Intermediate rash Verified 08/22/22 11:11 [From Augmentin] doxycycline [DOXYCYCLINE] Allergy Intermediate HIVES Verified 08/22/22 11:11 Sulfa (Sulfonamide Allergy Intermediate unknown Verified 08/22/22 11:11 Antibiotics) Physical Exam Vital signs: Vital Signs Temp 97.1 F 08/29/22 07:27 Pulse 94 08/29/22 07:27 Resp 18 08/29/22 07:27 BP 130/79 08/29/22 07:27 Pulse Ox 96 08/29/22 07:27 O2 Del Method 08/29/22 07:27 Intake & Output 08/28/22 08/29/22 08/29/22 18:59 06:59 18:59 Intake Total 0 1276 1276 / 1276 Balance 0 127 1276 / 1276 Intake: Intake (Blood Product) Amount 0 276 / 276 Red Blood Cells Aph (E0685) 0 276 / 276 Unit [id number] Intake, IV Amount 1000 / 1000 Lactated Ringers 1,000 ml @ 999 1000 / 1000 mls/hr IV .Q1H1M NUPUR Rx#: [id number] Other: Weight 65.771 kg Weight 65.771 kg - Constitutional Present: no acute distress, chronically ill appearing - Routine HEENT Exam Head: Present: normal inspection Eye: Present: conjunctivae pale - Routine Neck Exam Present: supple. Absent: lymphadenopathy - Routine Respiratory Exam Present: CTAB. Absent: accessory muscle use - Routine Cardiovascular Exam Cardiovascular: Present: S1, S2, tachycardia - Routine Abdominal Exam Present: distended. Absent: tenderness - Routine Extremities Exam Present: pulses intact. Absent: pedal edema Hem/Onc Consult Result - Labs CBC & Chem 7: 08/29/22 05:45 08/29/22 05:45 Labs: Short CBC 08/28/22 08/29/22 Range/Units 17:05 05:45 WBC 1.8 L 2.2 L (4.8-10.8) X10*3/uL Hgb 7.0 L* D 7.5 L (12.0-16.0) g/dl Hct 21.2 L D 22.6 L (37.0-47.0) % Plt Count 72 L D 61 L (160-400) X10*3/uL BMP 08/28/22 08/29/22 17:05 05:45 Sodium 136 136 Potassium 4.2 D 3.8 Chloride 105 105 Carbon Dioxide 21 L 23 BUN 17 H D 16 Creatinine 0.80 0.68 Calcium 8.6 8.1 L Liver Function 08/28/22 Range/Units 17:05 Total Bilirubin 0.8 (0.0-1.0) mg/dL Direct Bilirubin 0.4 (0.0-0.5) mg/dL AST 9 D (5-31) U/L ALT 10 (0-31) U/L Alkaline Phosphatase 121 H D (39-117) U/L Albumin 3.3 L (3.5-5.0) g/dL Assessment and Plan Patient Active problem list reviewed?: Yes (1) Pancytopenia due to chemotherapy Status: Acute Assessment and plan: 1. This is a pleasant 71-year-old woman presenting with metastatic pancreatic cancer diagnosed in May 2022. She had therapeutic and diagnostic paracentesis on 06/08/2022. Pathology revealed adenocarcinoma consistent with pancreatic primary. CA 19 9 levels 2824 units/mL. She was started on FOLFIRINOX regimen with 75% doses on 06/27/2022. She missed several doses because of admissions to the hospital with recurrent ascites and failure to thrive. She received cycle 3 chemotherapy on 08/22/2022 with reduced doses. She received Neulasta on 08/24/2022. She has developed pancytopenia in spite of reduced doses, she has poor marrow reserves. Her nutritional status is not good. Granix can be stops at this time. I recommend 1 unit PRBC today. I thank you for the consult. - Time Spent With Patient Time Spent with Patient (in minutes): 15
--- NOTE | 2022-08-29 09:09 | HO.PM.IMPN ---
Subjective Subjective Date of Service: 08/29/22 Interval History: Seen in follow up for pancytopenia with symptomatic anemia Interval history: Blood counts improving though not at baseline. Patient denies any shortness of breath, lightheadedness, palpitations, chest pain. still endorsing fatigue, weakness. Review of Systems General: No fevers, malaise, unintentional weight loss. +fatigue, +generalized weakness HEENT: No blurred vision, diplopia. Cardiovascular: No chest pain, palpitations, or leg edema Respiratory: No shortness of breath, wheezing, cough GI: + abdominal pain. No nausea, vomiting, diarrhea, constipation, melena, hematochezia : No dysuria, hematuria, increased urinary frequency, decreased urinary output MSK: No myalgia, back pain Neuro: No headaches, focal weakness, paresthesias Skin: No rashes or lesions Physical Exam Vital Signs: Vital Signs: Last Vital Signs Temp 97.1 F 08/29/22 07:27 Pulse 94 08/29/22 07:27 Resp 18 08/29/22 07:27 BP 130/79 08/29/22 07:27 Pulse Ox 96 08/29/22 07:27 O2 Del Method 08/29/22 07:27 BMI result Body Mass Index 25.7 Constitutional - Awake and Alert, No apparent distress Eyes - PERRLA, EOMI Cardiovascular - S1S2, RRR, No edema Respiratory - Normal lung expansion, Normal respiratory effort, No respiratory distress, CTA bilaterally Gastrointestinal - softly distended mildly tender in the upper quadrants bilaterally with positive fluid wave. +BS; No rebound or guarding Extremities - no calf tenderness bilaterally, no swelling Skin - Warm/Dry. Stage I/II decubitus ulcer sacrum with dusky erythema and 4mm x2mm area of skin breakdown not extending to the fat Neurological - Alert & oriented x3 Psychological - Appropriate affect Objective Data Active Medications Acetaminophen (Acetaminophen 325 Mg Tablet) 650 mg PO Q6H PRN PRN Reason: Pain, Mild (Pain Scale 1-3) Al Hydroxide/Mg Hydroxide (Magnesium Hydrox/Alum Hydrox 30 Ml Oral.Susp) 15 ml PO Q6H PRN PRN Reason: Dyspepsia Last Admin: 08/28/22 21:08 Dose: 15 ml Documented By: RODRI Al Hydroxide/Mg Hydroxide (Magnesium Hydrox/Alum Hydrox 30 Ml Oral.Susp) 5 ml PO Q6H PRN PRN Reason: Indigestion Atenolol (Atenolol 25 Mg Tablet) 12.5 mg PO DAILY [facility]; Protocol Last Admin: 08/29/22 08:10 Dose: 12.5 mg Documented By: TRICIA Atorvastatin Calcium (Atorvastatin Calcium 20 Mg Tablet) 20 mg PO BEDTIME [facility] Last Admin: 08/28/22 21:09 Dose: 20 mg Documented By: RODRI Enoxaparin Sodium (Enoxaparin Sodium 40 Mg/0.4 Ml Syringe) 40 mg SUBCUT Q24H [facility] Last Admin: 08/28/22 21:08 Dose: 40 mg Documented By: RODRI Estradiol (Estradiol 0.5 Mg Tablet) 0.5 mg PO DAILY [facility] Fluticasone Propionate (Fluticasone Propionate Nasal 16 Gm [place]) 1 spray NOSTRIL-B DAILY [facility] Last Admin: 08/29/22 08:11 Dose: Not Given Documented By: TRICIA Non-Admin Reason: Med Not Available Hydromorphone HCl (Hydromorphone Hcl 0.5 Mg/0.5 Ml Syringe) 0.25 mg IVPUSH Q4H PRN; Protocol PRN Reason: Pain, Severe (Pain Scale 7-10) Last Admin: 08/29/22 01:45 Dose: 0.25 mg Documented By: SHELLIE Latanoprost (Latanoprost 0.005 % Ophth Carly 2.5 Ml Drops) 1 drop EYE-BOTH BEDTIME [facility] Last Admin: 08/28/22 21:10 Dose: Not Given Documented By: RODRI Non-Admin Reason: Med Not Available Levothyroxine Sodium (Levothyroxine Sodium 50 Mcg Tablet) 50 mcg PO DAILY@0600 [facility] Last Admin: 08/29/22 06:22 Dose: 50 mcg Documented By: SHELLIE Lisinopril (Lisinopril 2.5 Mg Tablet) 2.5 mg PO DAILY [facility]; Protocol Last Admin: 08/29/22 08:10 Dose: 2.5 mg Documented By: TRICIA Lorazepam (Lorazepam 0.5 Mg Tablet) 0.5 mg PO BEDTIME PRN PRN Reason: Anxiety Last Admin: 08/28/22 21:09 Dose: 0.5 mg Documented By: RODRI Melatonin (Melatonin 3 Mg Tablet) 3 mg PO BEDTIME PRN PRN Reason: Sleep Last Admin: 08/28/22 21:09 Dose: 3 mg Documented By: RODRI Metformin HCl (Metformin Hcl Er 500 Mg Tab.Er.24h) 1,000 mg PO BIDWM [facility] Last Admin: 08/29/22 07:24 Dose: 1,000 mg Documented By: TRICIA Multivitamins/Vitamin C (Multivitamin Tablet) 1 tab PO DAILY [facility] Last Admin: 08/29/22 08:10 Dose: 1 tab Documented By: TRICIA Omeprazole (Omeprazole 20 Mg Capsule.Dr) 20 mg PO DAILY@0630 [facility] Last Admin: 08/29/22 06:22 Dose: 20 mg Documented By: SHELLIE Ondansetron HCl (Ondansetron Hcl 4 Mg/2 Ml Vial) 4 mg IVPUSH Q8H PRN PRN Reason: Nausea and Vomiting Last Admin: 08/28/22 20:03 Dose: 4 mg Documented By: RODRI Oxycodone HCl (Oxycodone Hcl Immed Release 5 Mg Tablet) 5 mg PO Q6H PRN PRN Reason: Pain, Moderate (Pain Scale 4-6 Last Admin: 08/28/22 20:03 Dose: 5 mg Documented By: RODRI Pharmacy Consult (Consult Rx Perform Med Rec) 1 each MISCELLANE ONCE PRN PRN Reason: Consult order Prochlorperazine Maleate (Prochlorperazine Maleate 5 Mg Tablet) 10 mg PO Q8H PRN PRN Reason: Nausea And Vomiting Senna (Sennosides 8.6 Mg Tablet) 17.2 mg PO BEDTIME PRN PRN Reason: Constipation Sodium Chloride (0.9 % Sodium Chloride Flush 3 Ml Syringe) 3 ml IVFLUSH QSHIFT [facility] Last Admin: 08/29/22 07:24 Dose: 3 ml Documented By: TRICIA Labs CBC & Chem 7: 08/29/22 05:45 08/29/22 05:45 Labs: Laboratory Results - last 24 hr 08/28/22 08/28/22 08/28/22 17:03 17:03 17:04 MCV MCH MCHC RDW Plt Count MPV Immature Gran % (Auto) Neut % (Auto) Lymph % (Auto) Elk % (Auto) Eos % (Auto) Baso % (Auto) Lymph # (Auto) Elk # (Auto) Eos # (Auto) Baso # (Auto) Abs Immat Gran (auto) Absolute Neuts (auto) Absolute Nucleated RBC Nucleated RBC % (auto) Smear Tech's Comments PT 12.5 INR 1.1 APTT 32.1 Anion Gap Estim Creat Clear Calc Estimated GFR Random Glucose Lactic Acid 0.7 Calcium Total Bilirubin Direct Bilirubin AST ALT Alkaline Phosphatase Troponin I High Sens Total Protein Albumin Lipase Stool Occult Blood COVID-19 (ARVIN) COVID-19 Clin Com Blood Type O Negative Antibody Screen NEGATIVE Crossmatch See Detail 08/28/22 08/28/22 08/28/22 17:05 17:05 17:05 MCV 82.5 MCH 27.2 MCHC 33.0 RDW 17.8 H Plt Count 72 L D MPV 9.4 Immature Gran % (Auto) 1.7 H Neut % (Auto) 16.7 L Lymph % (Auto) 78.2 H Elk % (Auto) 2.2 Eos % (Auto) 0.6 Baso % (Auto) 0.6 Lymph # (Auto) 1.4 Elk # (Auto) 0.0 L Eos # (Auto) 0.0 Baso # (Auto) 0.0 Abs Immat Gran (auto) 0.03 Absolute Neuts (auto) 0.3 L Absolute Nucleated RBC 0.000 Nucleated RBC % (auto) 0.0 Smear Tech's Comments VERIFIED PT INR APTT Anion Gap 14 Estim Creat Clear Calc 57.9 Estimated GFR > 60 Random Glucose 148 H Lactic Acid Calcium 8.6 Total Bilirubin 0.8 Direct Bilirubin 0.4 AST 9 D ALT 10 Alkaline Phosphatase 121 H D Troponin I High Sens 6.9 D Total Protein 5.4 L Albumin 3.3 L Lipase 12 Stool Occult Blood COVID-19 (ARVIN) COVID-19 [facility] Com Blood Type Antibody Screen Crossmatch 08/28/22 08/28/22 08/29/22 17:41 17:41 05:45 MCV 83.7 MCH 27.8 MCHC 33.2 RDW 17.3 H Plt Count 61 L MPV 9.7 Immature Gran % (Auto) 0.0 Neut % (Auto) 3.2 L Lymph % (Auto) 95.5 H Elk % (Auto) 0.9 L Eos % (Auto) 0.4 Baso % (Auto) 0.0 Lymph # (Auto) 2.1 Elk # (Auto) 0.0 L Eos # (Auto) 0.0 Baso # (Auto) 0.0 Abs Immat Gran (auto) 0.00 Absolute Neuts (auto) 0.1 L Absolute Nucleated RBC 0.000 Nucleated RBC % (auto) 0.0 Smear Tech's Comments VERIFIED PT INR APTT Anion Gap Estim Creat Clear Calc Estimated GFR Random Glucose Lactic Acid Calcium Total Bilirubin Direct Bilirubin AST ALT Alkaline Phosphatase Troponin I High Sens Total Protein Albumin Lipase Stool Occult Blood NEGATIVE COVID-19 (ARVIN) Positive A COVID-19 Clin Com See Note Blood Type Antibody Screen Crossmatch 08/29/22 05:45 MCV MCH MCHC RDW Plt Count MPV Immature Gran % (Auto) Neut % (Auto) Lymph % (Auto) Elk % (Auto) Eos % (Auto) Baso % (Auto) Lymph # (Auto) Elk # (Auto) Eos # (Auto) Baso # (Auto) Abs Immat Gran (auto) Absolute Neuts (auto) Absolute Nucleated RBC Nucleated RBC % (auto) Smear Tech's Comments PT INR APTT Anion Gap 12 Estim Creat Clear Calc 68.2 Estimated GFR > 60 Random Glucose 107 Lactic Acid Calcium 8.1 L Total Bilirubin Direct Bilirubin AST ALT Alkaline Phosphatase Troponin I High Sens Total Protein Albumin Lipase Stool Occult Blood COVID-19 (ARVIN) COVID-19 Clin Com Blood Type Antibody Screen Crossmatch Assessment and Plan (1) Pancytopenia due to chemotherapy: Status: Acute (2) Symptomatic anemia: Status: Acute (3) Pancreatic adenocarcinoma: Status: Acute (4) COVID-19: Status: Acute Plan 71-year-old female with a past medical history of hypertension, hyperlipidemia, diabetes, hypothyroidism, anemia, history of metastatic pancreatic cancer with peritoneal carcinomatosis, ascites, anxiety, depression?to be observed for pancytopnea requiring granix and transfusion #pancytopenia- secondary to metastatic pancreatic cancer -received 1 unit packed red blood cells and Granix in the ED -blood counts improved, but still pancytopenic. WBC 2.2, RBC 2.7, HGB 7.5, HCT 22.6% -1 unit additional packed red blood cells ordered per Oncology -oncology following -follow CBC # COVID-19 -has been tested positive for COVID-19 since 08/10/2022 -asymptomatic without hypoxia -symptomatic management -droplet/contact precautions # stage I/II decubitus ulcer sacrum-present on arrival -reposition often-at least once shift -zinc oxide for barrier cream # metastatic pancreatic cancer with pancytopenia and history ascites due to low protein -as above -outpatient follow-up with Oncology -pain management using pain scale -ondansetron and Compazine p.r.n. for nausea -continue Lasix for ascites -liver panel ordered for stability # [id number] type 2 diabetes -POC glucose -Humalog on sliding scale -diabetic diet # hypothyroidism -continue Synthroid ?DVT prophylaxis with Lovenox ?full code Quality Stroke Does the patient have a stroke diagnosis?: No VTE Prior VTE?: No VTE Risk Level:: Medical - moderate - high VTE Device Contraindication: Treatment Not Indicated VTE Drug Contraindication: Treatment Not Indicated
--- NOTE | 2022-08-29 09:11 | MHC.CM.PN ---
Patient is Covid (+)and unavailable by phone/cell @ [phone]; CM spoke with her /Enrique @[phone] and addressed DIALLO with him(original to be mailed to him and a copy to be placed on the chart). Patient lives in a 2 family house with her and she uses a walker to assist with mobility. Patient was active with [facility] (Unsure of agency) and recently started with [facility] for [facility]. Home resume said services vs STR pending PT eval is the tentative dc plan and CM has initiated and will follow for dc planning.Patient's PCP/PA is Sammy Cordova and Patient had received Moderna/Covid vax X4. Patient has Pancreatic CA with mets and last chemo was 08/20/2022.
--- NOTE | 2022-08-29 10:25 | MHC.CM.PN ---
Patient is active with [facility].
[2022-08-29] MEDS: ondansetron HCL 4 MG/2 ML VIAL IVPUSH ×2 (10:47→22:39)
--- NOTE | 2022-08-29 11:19 | MHC.CM.PN ---
Per ROUNDS discussion, Patient has been medically cleared for dc to SNF today. Patient will return to [place] today at 2PM, via [facility]. IMM addressed with Patient yesterday and Son/Narinder @ [phone] has also been made aware of the dc plan.
[2022-08-29] MEDS: Zinc Oxide (Triple Paste) 56.7 GM OINT 1 APPL TOPICAL (12:11)
[2022-08-29] MEDS: estradioL 0.5 MG TABLET PO (12:11)
[2022-08-29] MEDS: oxyCODONE HCl Immed Release 5 MG TABLET PO ×2 (12:15→23:57)
[2022-08-29 12:20] LABS: Glucose, Whole Blood 115 mg/dL (60-115)
[2022-08-29] MEDS: Atorvastatin Calcium 20 MG TABLET PO (21:14)
[2022-08-29] MEDS: Enoxaparin Sodium 40 MG/0.4 ML SYRINGE SUBCUT (22:39)
[2022-08-30] VITALS (7 sets, daily range): BP systolic 102–128; BP diastolic 58–68; PULSE 80–98; RESP 16–20; TEMP 36.1–36.8; O2SAT 94–99; BMI 25.7
[2022-08-30] MEDS: Levothyroxine Sodium 50 MCG TABLET PO (04:57)
[2022-08-30] MEDS: HYDROmorphone HCl 1 MG/ML SYRINGE 0.25 MG IVPUSH ×2 (04:57→21:07)
[2022-08-30] MEDS: Omeprazole 20 MG CAPSULE.DR PO (04:57)
[2022-08-30 08:00] LABS: Hematocrit 27.3 % (37.0-47.0); Hemoglobin 9.3 g/dl (12.0-16.0); Lymphocytes Absolute Auto 1.9 X10*3/uL (1.2-4.9); MANUAL DIFF FLAG SCAN; Mean Corpuscular HGB Conc 34.1 g/dl (31.0-35.0); Mean Corpuscular Hemoglobin 28.6 pg (27.0-33.0); Mean Platelet Volume 10.3 fL (9.4-12.3); Monocytes Percent Auto 1.5 % (2-11); Neutrophils Percent Auto 1.5 % (45-73); Red Blood Count 3.25 X10*6/uL (4.20-5.50); Red Cell Distribution Width 16.6 % (11.0-16.0); SCAN SMEAR FLAG 1
[2022-08-30 08:06] LABS: Platelet Count 46 X10*3/uL (160-400)
[2022-08-30 08:25] LABS: SLIDE REVIEW VERIFIED
[2022-08-30 08:26] LABS: Alanine Aminotransferase 6 U/L (0-31); Alkaline Phosphatase 99 U/L (39-117); Anion Gap 11 (12-20); Aspartate Amino Transferase 6 U/L (5-31); Bilirubin Total 0.9 mg/dL (0.0-1.0); Blood Urea Nitrogen 15 mg/dL (9-16); Calcium 8.4 mg/dL (8.4-10.2); Carbon Dioxide 24 mmol/L (22-29); Chloride 105 mmol/L (96-108); Creatinine Clr Calc Pharmacy 59.4; Estimated Glomerular Filt Rate > 60; Glucose Random 110 mg/dL (60-115); Potassium 4.5 mmol/L (3.3-5.1); Sodium 135 mmol/L (135-145); Total Protein 5.3 g/dL (6.5-8.0)
[2022-08-30] MEDS: Fluticasone Propionate Nasal 16 GM SPRAY 1 SPRAY NOSTRIL-B (09:06)
[2022-08-30] MEDS: metFORMIN HCl ER 500 MG TAB.ER.24H 1000 MG PO ×2 (09:06→17:10)
[2022-08-30] MEDS: atenoloL 25 MG TABLET 12.5 MG PO (09:07)
[2022-08-30] MEDS: lisinopriL 2.5 MG TABLET PO (09:07)
[2022-08-30] MEDS: estradioL 0.5 MG TABLET PO (09:07)
[2022-08-30] MEDS: Multivitamin TABLET 1 TAB PO (09:07)
[2022-08-30] MEDS: 0.9 % Sodium Chloride Flush 3 ML SYRINGE IVFLUSH ×2 (09:08→23:50)
[2022-08-30] MEDS: ondansetron HCL 4 MG/2 ML VIAL IVPUSH ×2 (09:34→23:50)
--- NOTE | 2022-08-30 15:08 | HO.PM.IMPN ---
Subjective Subjective Date of Service: 09/03/22 Interval History: Seen in follow up for pancytopenia with symptomatic anemia with background metastatic pancreatic cancer Interval history: Blood counts improving. Patient denies any shortness of breath, lightheadedness, palpitations, chest pain. still endorsing fatigue, abdominal pain, weakness which are chronic. Now having diarrhea. Denies any melena or hematochezia Review of Systems General: No fevers, malaise, unintentional weight loss. +fatigue, +generalized weakness HEENT: No blurred vision, diplopia. Cardiovascular: No chest pain, palpitations, or leg edema Respiratory: No shortness of breath, wheezing, cough GI: + abdominal pain, +diarrhea. No nausea, vomiting, diarrhea, constipation, melena, hematochezia : No dysuria, hematuria, increased urinary frequency, decreased urinary output MSK: No myalgia, back pain Neuro: No headaches, focal weakness, paresthesias Skin: No rashes or lesions Physical Exam Vital Signs: Vital Signs: Last Vital Signs Temp 98.0 F 08/30/22 12:00 Pulse 98 08/30/22 12:00 Resp 20 08/30/22 12:00 BP 128/68 08/30/22 12:00 Pulse Ox 98 08/30/22 04:00 O2 Del Method 08/30/22 04:00 BMI result Body Mass Index 25.7 Constitutional - Awake and Alert, No apparent distress Eyes - PERRLA, EOMI Cardiovascular - S1S2, RRR, No edema Respiratory - Normal lung expansion, Normal respiratory effort, No respiratory distress, CTA bilaterally Gastrointestinal - softly distended mildly tender in the upper quadrants bilaterally with positive fluid wave. +BS; No rebound or guarding. Incontinent of stool with brown diarrhea, no blood Extremities - no calf tenderness bilaterally, no swelling Skin - Warm/Dry. Stage I/II decubitus ulcer sacrum with dusky erythema and 4mm x2mm area of skin breakdown not extending to the fat Neurological - Alert & oriented x3 Psychological - Appropriate affect Objective Data Active Medications Acetaminophen (Acetaminophen 325 Mg Tablet) 650 mg PO Q6H PRN PRN Reason: Pain, Mild (Pain Scale 1-3) Al Hydroxide/Mg Hydroxide (Magnesium Hydrox/Alum Hydrox 30 Ml Oral.Susp) 15 ml PO Q6H PRN PRN Reason: Dyspepsia Last Admin: 08/28/22 21:08 Dose: 15 ml Documented By: RODRI Al Hydroxide/Mg Hydroxide (Magnesium Hydrox/Alum Hydrox 30 Ml Oral.Susp) 5 ml PO Q6H PRN PRN Reason: Indigestion Atenolol (Atenolol 25 Mg Tablet) 12.5 mg PO DAILY [facility]; Protocol Last Admin: 08/30/22 09:07 Dose: 12.5 mg Documented By: CHERELLE Atorvastatin Calcium (Atorvastatin Calcium 20 Mg Tablet) 20 mg PO BEDTIME [facility] Last Admin: 08/29/22 21:14 Dose: 20 mg Documented By: OCHOA Enoxaparin Sodium (Enoxaparin Sodium 40 Mg/0.4 Ml Syringe) 40 mg SUBCUT Q24H [facility] Last Admin: 08/29/22 22:39 Dose: 40 mg Documented By: OCHOA Estradiol (Estradiol 0.5 Mg Tablet) 0.5 mg PO DAILY [facility] Last Admin: 08/30/22 09:07 Dose: 0.5 mg Documented By: CHERELLE Fluticasone Propionate (Fluticasone Propionate Nasal 16 Gm Bernice) 1 spray NOSTRIL-B DAILY [facility] Last Admin: 08/30/22 09:06 Dose: 1 spray Documented By: CHERELLE Hydromorphone HCl (Hydromorphone Hcl 1 Mg/Ml Syringe) 0.25 mg IVPUSH Q4H PRN; Protocol PRN Reason: Pain, Severe (Pain Scale 7-10) Last Admin: 08/30/22 04:57 Dose: 0.25 mg Documented By: DARREL Latanoprost (Latanoprost 0.005 % Ophth Carly 2.5 Ml Drops) 1 drop EYE-BOTH BEDTIME [facility] Last Admin: 08/29/22 23:26 Dose: Not Given Documented By: OCHOA Non-Admin Reason: Patient Refused Levothyroxine Sodium (Levothyroxine Sodium 50 Mcg Tablet) 50 mcg PO DAILY@0600 [facility] Last Admin: 08/30/22 04:57 Dose: 50 mcg Documented By: DARREL Lisinopril (Lisinopril 2.5 Mg Tablet) 2.5 mg PO DAILY [facility]; Protocol Last Admin: 08/30/22 09:07 Dose: 2.5 mg Documented By: CHERELLE Lorazepam (Lorazepam 0.5 Mg Tablet) 0.5 mg PO BEDTIME PRN PRN Reason: Anxiety Last Admin: 08/28/22 21:09 Dose: 0.5 mg Documented By: RODRI Melatonin (Melatonin 3 Mg Tablet) 3 mg PO BEDTIME PRN PRN Reason: Sleep Last Admin: 08/28/22 21:09 Dose: 3 mg Documented By: RODRI Metformin HCl (Metformin Hcl Er 500 Mg Tab.Er.24h) 1,000 mg PO BIDWM [facility] Last Admin: 08/30/22 09:06 Dose: 1,000 mg Documented By: CHERELLE Multivitamins/Vitamin C (Multivitamin Tablet) 1 tab PO DAILY [facility] Last Admin: 08/30/22 09:07 Dose: 1 tab Documented By: CHERELLE Omeprazole (Omeprazole 20 Mg Capsule.Dr) 20 mg PO DAILY@0630 [facility] Last Admin: 08/30/22 04:57 Dose: 20 mg Documented By: DARREL Ondansetron HCl (Ondansetron Hcl 4 Mg/2 Ml Vial) 4 mg IVPUSH Q8H PRN PRN Reason: Nausea and Vomiting Last Admin: 08/30/22 09:34 Dose: 4 mg Documented By: CHERELLE Oxycodone HCl (Oxycodone Hcl Immed Release 5 Mg Tablet) 5 mg PO Q6H PRN PRN Reason: Pain, Moderate (Pain Scale 4-6 Last Admin: 08/29/22 23:57 Dose: 5 mg Documented By: DARREL Pharmacy Consult (Consult Rx Perform Med Rec) 1 each MISCELLANE ONCE PRN PRN Reason: Consult order Prochlorperazine Maleate (Prochlorperazine Maleate 5 Mg Tablet) 10 mg PO Q8H PRN PRN Reason: Nausea And Vomiting Senna (Sennosides 8.6 Mg Tablet) 17.2 mg PO BEDTIME PRN PRN Reason: Constipation Sodium Chloride (0.9 % Sodium Chloride Flush 3 Ml Syringe) 3 ml IVFLUSH QSHIFT [facility] Last Admin: 08/30/22 09:08 Dose: 3 ml Documented By: CHERELLE Zinc Oxide (Zinc Oxide (Triple Paste) 56.7 Gm Oint) 1 appl TOPICAL QID PRN; Protocol PRN Reason: barrier cream/ ulcer Last Admin: 08/29/22 12:11 Dose: 1 appl Documented By: TRICIA Labs CBC & Chem 7: 08/30/22 07:25 08/30/22 07:25 Labs: Laboratory Results - last 24 hr 08/28/22 08/30/22 08/30/22 17:04 07:25 07:25 MCV 84.0 MCH 28.6 MCHC 34.1 RDW 16.6 H Plt Count 46 L MPV 10.3 Immature Gran % (Auto) 0.0 Neut % (Auto) 1.5 L Lymph % (Auto) 97.0 H [place] % (Auto) 1.5 L Eos % (Auto) 0.0 Baso % (Auto) 0.0 Lymph # (Auto) 1.9 [place] # (Auto) 0.0 L Eos # (Auto) 0.0 Baso # (Auto) 0.0 Abs Immat Gran (auto) 0.00 Absolute Neuts (auto) 0.0 L Absolute Nucleated RBC 0.000 Nucleated RBC % (auto) 0.0 Smear Tech's Comments VERIFIED Anion Gap 11 L Estim Creat Clear Calc 59.4 Estimated GFR > 60 Random Glucose 110 Calcium 8.4 Total Bilirubin 0.9 AST 6 ALT 6 Alkaline Phosphatase 99 Total Protein 5.3 L Albumin 3.0 L Crossmatch See Detail Microbiology Microbiology Results: Microbiology 08/28/22 17:04 Blood Culture - Preliminary Blood - Venous No growth after 24 hours. 08/28/22 17:05 Blood Culture - Preliminary Blood - Venous No growth after 24 hours. Assessment and Plan (1) Pancytopenia due to chemotherapy: Status: Acute (2) Symptomatic anemia: Status: Acute (3) Pancreatic adenocarcinoma: Status: Acute (4) COVID-19: Status: Acute Plan 71-year-old female with a past medical history of hypertension, hyperlipidemia, diabetes, hypothyroidism, anemia, history of metastatic pancreatic cancer with peritoneal carcinomatosis, ascites, anxiety, depression?to be observed for pancytopnea requiring granix and transfusion #pancytopenia- secondary to metastatic pancreatic cancer -received 1 unit packed red blood cells and Granix in the ED -blood counts improved, but still pancytopenic. WBC 2.0, RBC 3.25, H/H: 9.3/27.3% -oncology following recommending STR due to ongoing weakness -follow CBC # COVID-19 -has been tested positive for COVID-19 since 08/10/2022 -asymptomatic without hypoxia -symptomatic management -droplet/contact precautions # stage I/II decubitus ulcer sacrum-present on arrival -reposition often-at least once shift -zinc oxide for barrier cream # metastatic pancreatic cancer with pancytopenia and history ascites due to low protein -as above -outpatient follow-up with Oncology -pain management using pain scale -ondansetron and Compazine p.r.n. for nausea -continue Lasix for ascites -liver function stable # [id number] type 2 diabetes -POC glucose -Humalog on sliding scale -diabetic diet # hypothyroidism -continue Synthroid #Acute diarrhea -GI panel and CDiff pending -Immodium PRN if studies negative ?DVT prophylaxis with Lovenox ?full code Dispo: Discharge STR tomorrow pending stool studies. Patient requires addl night inpt stay due to new onset copious diarrhea with stool studies pending required for placement. Quality Stroke Does the patient have a stroke diagnosis?: No VTE Prior VTE?: No VTE Risk Level:: Medical - moderate - high VTE Device Contraindication: Treatment Not Indicated VTE Drug Contraindication: Treatment Not Indicated
[2022-08-30 15:42] LABS: CDiff Gene PCR NEGATIVE (Negative)
--- NOTE | 2022-08-30 16:21 | MHC.CM.PN ---
[facility] Due to >12 episodes of diarrhea, patient is staying another night.
[2022-08-30] MEDS: oxyCODONE HCl Immed Release 5 MG TABLET PO ×2 (17:10→23:47)
[2022-08-30] MEDS: Acetaminophen 325 MG TABLET 650 MG PO (21:06)
[2022-08-30] MEDS: Prochlorperazine Maleate 5 MG TABLET 10 MG PO (21:06)
[2022-08-30] MEDS: Atorvastatin Calcium 20 MG TABLET PO (21:06)
[2022-08-30] MEDS: Loperamide HCl 2 MG CAPSULE PO (21:16)
[2022-08-30] MEDS: Enoxaparin Sodium 40 MG/0.4 ML SYRINGE SUBCUT (22:05)
[2022-08-31 03:54] VITALS: BP 98/52; PULSE 105; RESP 18; TEMP 36.1; O2SAT 94
[2022-08-31] MEDS: Levothyroxine Sodium 50 MCG TABLET PO (06:48)
[2022-08-31] MEDS: oxyCODONE HCl Immed Release 5 MG TABLET PO ×2 (06:48→14:06)
[2022-08-31] MEDS: Omeprazole 20 MG CAPSULE.DR PO (06:48)
[2022-08-31 07:11] LABS: Adenovirus F 40/41 Not Detected (Not Detect.); Astrovirus Not Detected (Not Detect.); Campylobacter Not Detected (Not Detect.); Cryptosporidium Not Detected (Not Detect.); Cyclospora cayetanensis Not Detected (Not Detect.); E. coli EAEC Not Detected (Not Detect.); E. coli EPEC Not Detected (Not Detect.); E. coli ETEC Not Detected (Not Detect.); E. coli STEC Not Detected (Not Detect.); Entamoeba histolytica Not Detected (Not Detect.); Giardia lamblia Not Detected (Not Detect.); Norovirus GI/GII Not Detected (Not Detect.); Plesiomonas shigelloides Not Detected (Not Detect.); Rotavirus A Not Detected (Not Detect.); Salmonella Not Detected (Not Detect.); Sapovirus Not Detected (Not Detect.); Shigella sp./EIEC Not Detected (Not Detect.); Vibrio Not Detected (Not Detect.); Vibrio Cholerae Not Detected (Not Detect.); Yersinia enterocolitica Not Detected (Not Detect.)
[2022-08-31 07:49] VITALS: BP 110/65; PULSE 88; RESP 16; TEMP 36.9; O2SAT 99
[2022-08-31 08:56] LABS: Carbohydrate Antigen 19-9 313 U/mL (<34)
[2022-08-31] MEDS: metFORMIN HCl ER 500 MG TAB.ER.24H 1000 MG PO (10:14)
[2022-08-31] MEDS: Multivitamin TABLET 1 TAB PO (10:14)
[2022-08-31] MEDS: atenoloL 25 MG TABLET 12.5 MG PO (10:14)
[2022-08-31] MEDS: Fluticasone Propionate Nasal 16 GM SPRAY 1 SPRAY NOSTRIL-B (10:15)
[2022-08-31] MEDS: lisinopriL 2.5 MG TABLET PO (10:15)
[2022-08-31] MEDS: 0.9 % Sodium Chloride Flush 3 ML SYRINGE IVFLUSH (10:15)
[2022-08-31] MEDS: estradioL 0.5 MG TABLET PO (10:15)
[2022-08-31] MEDS: Loperamide HCl 2 MG CAPSULE PO (10:23)
[2022-08-31] MEDS: ondansetron HCL 4 MG/2 ML VIAL IVPUSH (10:24)
--- NOTE | 2022-08-31 11:43 | P.DS_ITS ---
DS: Providers Provider Date of Service: 08/31/22 Date of admission: 08/28/22 19:28 Primary care physician: Sammy Cordova PA-C Consults: 08/28/22 18:06 Consult to Hematology / Oncology Stat Consulting Provider: Charis Beverly Reason for consultation: Pancytopenia induced by chemotherapy Has provider been notified: Yes 08/29/22 07:37 Consult to Hematology / Oncology Routine Consulting Provider: Frandy Alston Reason for consultation: pancreatic ca with mets- amd for pancytopenia given granix and 1 unit prbc DS: Diagnosis Discharge Diagnosis (1) Pancytopenia due to chemotherapy: Status: Acute (2) Symptomatic anemia: Status: Acute (3) Pancreatic adenocarcinoma: Status: Acute (4) COVID-19: Status: Acute DS: Summary Hospital Course Hospital Course: from initial hpi: Chief Complaint: weakness, anemia, pancytopenia 71-year-old female with a past medical history of hypertension, hyperlipidemia, diabetes, hypothyroidism, anemia, history of metastatic pancreatic cancer with peritoneal carcinomatosis, ascites, anxiety, depression was sent in from rehab facility for evaluation of generalized weakness, decreased p.o. intake, nausea, and abdominal pain.? She follows with Dr. Alston in Oncology, last chemotherapy was 08/20, received FOLFIRONOX regimen.? For the last week or so, has felt weaker with decreased appetite and ongoing nausea.? Recommended for admission by Oncology due to symptomatic pancytopenia and anemia with WBC 1.8, RBC 2.57, H/H 7.0/21.2% (last measured 08/20 WBC 5.9, RBC 3.62, H/H 9.7/29.8 %).? Renal function baseline, electrolyte levels normal.? AST 9, ALT 10, alk-phos 121, albumin 3.3, total protein 5.4.? Troponin pending.? COVID-19 test is positive but has been positive since 08/10/2022. VSS, no hypoxia.? In the ED, received 1 unit packed red blood cells and Granix 300 mcg as well as 1 L LR bolus.? Patient to be observed for symptomatic pancytopenia. hospital course: Patient was admitted for symptomatic anemia in the setting of pancytopenia due to metastatic pancreatic cancer on chemotherapy. She received 1 unit of PRBC a nd Granix. Hemoglobin improved. Incidentally tested positive for COVID-19, she has been positive since 08/10/2022 without hypoxia. She has known stage 1-2 decubitus ulcer of the sacrum, zinc oxide sees for Barrier cream, repositioned frequently. For diabetes she was continue on insulin. For hypothyroidism she was continued on Synthroid. Patient was noted to have acute diarrhea, C diff and GI panel was negative she can use Imodium as needed. Patient will be discharged to alf facility for short-term rehab. Time Spent with Patient Time attestation: Total time spent providing and/or coordinating discharge services: Discharge coordination time: Greater than 30 minutes Quality: Safe Use of Opioids Does Pt have an Active Cancer Diagnosis on the Problem List?: Yes Opioid Measure Date for [facility] Report: 08/01/22 Opioid Measure Time for [facility] Report: 11:43 Quality: Stroke Does the patient have a stroke diagnosis?: No Physical Exam Vital Signs: Vital Signs: Last Vital Signs Temp 98.5 F 08/31/22 07:49 Pulse 88 08/31/22 07:49 Resp 16 08/31/22 07:49 BP 110/65 08/31/22 07:49 Pulse Ox 99 08/31/22 07:49 O2 Del Method 08/31/22 07:49 BMI result Body Mass Index 25.7 Constitutional - Awake and Alert, No apparent distress Eyes - PERRLA, EOMI Cardiovascular - S1S2, RRR, No edema Respiratory - Normal lung expansion, Normal respiratory effort, No respiratory distress, CTA bilaterally Gastrointestinal - softly distended mildly tender in the upper quadrants bilaterally with positive fluid wave. +BS; No rebound or guarding. Incontinent of stool with brown diarrhea, no blood Extremities - no calf tenderness bilaterally, no swelling Skin - Warm/Dry. Stage I/II decubitus ulcer sacrum with dusky erythema and 4mm x2mm area of skin breakdown not extending to the fat Neurological - Alert & oriented x3 Psychological - Appropriate affect DS: Data Data Completed and Pending Completed studies during hospitalization [Text1]: Procedures Drainage of Peritoneal Cavity, Percutaneous Approach (07/28/22) Transfusion of Nonautologous Red Blood Cells into Peripheral Vein, Percutaneous Approach (07/28/22) Labs on day of discharge: Laboratory Results - last 24 hr 08/29/22 08/30/22 08/30/22 05:45 14:00 14:00 CA 19-9 Antigen 313 H Stl C. cayetanensis PCR Not Detected Stool Rotavirus A PCR Not Detected Stl Adenov F 40/41 PCR Not Detected Stool Astrovirus (PCR) Not Detected Stool Campylobacter PCR Not Detected Stool Cryptosporidium PCR Not Detected Stl Sh Tox Pr E STEC PCR Not Detected Stool E coli O157 PCR Not applicable Stl Enterotoxigenic E PCR Not Detected Stool EPEC (PCR) Not Detected Stool EAEC (PCR) Not Detected Stl E. histolytica PCR Not Detected Stool Giardia Lamblia PCR Not Detected Stl P. shigelloides PCR Not Detected Stool Salmonella PCR Not Detected Stool Sapovirus (PCR) Not Detected Stl Shigella/EIEC PCR Not Detected St Y.enterocolitica PCR Not Detected Stool Vibrio (PCR) Not Detected Stl Vibrio cholerae PCR Not Detected Stl Norovirus GI/GII PCR Not Detected C. difficile Tox B Gene NEGATIVE Preliminary micro results at discharge 08/28/22 17:04 Blood Culture - Preliminary Blood - Venous No growth after 48 hours. 08/28/22 17:05 Blood Culture - Preliminary Blood - Venous No growth after 48 hours. Discharge Plan Discharge Anticipated Discharge Date/Time: 08/31/22 11:40 Patient Disposition: Xfer SNF Discharge Diagnosis: anemia Referrals: Sammy Cordova PA-C [Primary Care Provider] - 1 Week Discharge Medications: New loperamide 2 mg Capsule 2 mg PO Q6H PRN (Reason: Diarrhea) Qty: 0 0RF Continued oxycodone 5 mg tablet 1 tab PO TID PRN (Reason: Pain) Qty: 30 0RF atenolol 25 mg tablet 0.5 tab PO DAILY prochlorperazine maleate [Compazine] 10 mg Tablet 10 mg PO Q8H PRN (Reason: Nausea And Vomiting) Qty: 30 4RF potassium chloride 10 mEq tablet extended release 2 tab PO DAILY lorazepam 0.5 mg tablet 0.5 mg PO BEDTIME PRN (Reason: Anxiety) levothyroxine 50 mcg tablet 1 tab PO DAILY@0600 metformin 500 mg tablet extended release 24 hr 1,000 mg PO BID multivitamin Tablet 1 tab PO DAILY acetaminophen-codeine 300-30 mg tablet 1 tab PO Q8H PRN (Reason: Pain) pantoprazole 40 mg tablet,delayed release (DR/EC) 1 tab PO DAILY latanoprost 0.005 % Drops 1 drp OPHTHALMIC (EYE) QPM simvastatin 40 mg Tablet 40 mg PO BEDTIME dexamethasone 4 mg Tablet See Rx Instructions .ROUTE .COMPLEX Rx Instructions: 1 tablet twice a day for 2 days post chemo alum-mag hydroxide-simeth [Laisha-Lanta] 400-400-40 mg/5 mL Suspension 5 ml PO Q6H PRN (Reason: Indigestion) fluticasone propionate 50 mcg/actuation [place],Suspension 1 spray INTRANASAL DAILY Rx Instructions: administer into each nostril furosemide [Lasix] 20 mg tablet 20 mg PO DAILY Qty: 30 0RF lisinopril 2.5 mg Tablet 2.5 mg PO DAILY melatonin 3 mg Tablet 3 mg PO BEDTIME PRN (Reason: Sleep) estradiol 0.5 mg Tablet 0.5 mg PO DAILY Rx Instructions: off 5 days; repeat cycle Discharge Orders: Discharge Order (Routine); Ordered 08/31/22 Ordered By: Jalen Palma Diet: Advance to usual diet Activity on Discharge: As tolerated Stand Alone Forms: Patient Portal Discharge page Care Plan Goals: manage cancer Health Concerns: pancytopenia Plan of Treatment: follow up oncology Assessment: see above
[2022-08-31 12:14] VITALS: BP 120/85; PULSE 85; RESP 17; TEMP 36.8; O2SAT 98
--- NOTE | 2022-08-31 12:20 | MHC.CM.PN ---
DP: PT IS MEDICALLY CLEARED FOR DISCHARGE, PT WOULD LIKE TO GO TO REHAB, [facility] IS OFFERING A BED AND PT IS AGREEABLE. RN AWARE OF DC. ATTEMPTED TO REACH MARCELO AT [phone], UNABLE TO LEAVE MESSAGE MAILBOX IS FULL. S TRANSPORT BOOKED FOR 1:30 PM WITH [facility]
--- NOTE | 2022-08-31 13:14 | HO.PM.IMPN ---
Subjective Subjective Date of Service: 08/31/22 Interval History: cc: weakness interval history:diarrhea Cardiovascular Cardiovascular: Reports no additional cardiovascular complaints Respiratory Respiratory: Reports no additional respiratory complaints Physical Exam Vital Signs: Vital Signs: Last Vital Signs Temp 98.2 F 08/31/22 12:14 Pulse 85 08/31/22 12:14 Resp 17 08/31/22 12:14 BP 120/85 08/31/22 12:14 Pulse Ox 98 08/31/22 12:14 O2 Del Method 08/31/22 12:14 BMI result Body Mass Index 25.7 Constitutional - Awake and Alert, No apparent distress Eyes - PERRLA, EOMI Cardiovascular - S1S2, RRR, No edema Respiratory - Normal lung expansion, Normal respiratory effort, No respiratory distress, CTA bilaterally Gastrointestinal - softly distended mildly tender in the upper quadrants bilaterally with positive fluid wave. +BS; No rebound or guarding. Incontinent of stool with brown diarrhea, no blood Extremities - no calf tenderness bilaterally, no swelling Skin - Warm/Dry. Stage I/II decubitus ulcer sacrum with dusky erythema and 4mm x2mm area of skin breakdown not extending to the fat Neurological - Alert & oriented x3 Psychological - Appropriate affect Objective Data Active Medications Acetaminophen (Acetaminophen 325 Mg Tablet) 650 mg PO Q6H PRN PRN Reason: Pain, Mild (Pain Scale 1-3) Last Admin: 08/30/22 21:06 Dose: 650 mg Documented By: DARREL Al Hydroxide/Mg Hydroxide (Magnesium Hydrox/Alum Hydrox 30 Ml Oral.Susp) 15 ml PO Q6H PRN PRN Reason: Dyspepsia Last Admin: 08/28/22 21:08 Dose: 15 ml Documented By: RODRI Al Hydroxide/Mg Hydroxide (Magnesium Hydrox/Alum Hydrox 30 Ml Oral.Susp) 5 ml PO Q6H PRN PRN Reason: Indigestion Atenolol (Atenolol 25 Mg Tablet) 12.5 mg PO DAILY [facility]; Protocol Last Admin: 08/31/22 10:14 Dose: 12.5 mg Documented By: FAHAD Atorvastatin Calcium (Atorvastatin Calcium 20 Mg Tablet) 20 mg PO BEDTIME NUPUR Last Admin: 08/30/22 21:06 Dose: 20 mg Documented By: DARREL Enoxaparin Sodium (Enoxaparin Sodium 40 Mg/0.4 Ml Syringe) 40 mg SUBCUT Q24H [facility] Last Admin: 08/30/22 22:05 Dose: 40 mg Documented By: DARREL Estradiol (Estradiol 0.5 Mg Tablet) 0.5 mg PO DAILY [facility] Last Admin: 08/31/22 10:15 Dose: 0.5 mg Documented By: FAHAD Fluticasone Propionate (Fluticasone Propionate Nasal 16 Gm Hannah) 1 spray NOSTRIL-B DAILY [facility] Last Admin: 08/31/22 10:15 Dose: 1 spray Documented By: FAHAD Hydromorphone HCl (Hydromorphone Hcl 1 Mg/Ml Syringe) 0.25 mg IVPUSH Q4H PRN; Protocol PRN Reason: Pain, Severe (Pain Scale 7-10) Last Admin: 08/30/22 21:07 Dose: 0.25 mg Documented By: DARREL Latanoprost (Latanoprost 0.005 % Ophth Carly 2.5 Ml Drops) 1 drop EYE-BOTH BEDTIME [facility] Last Admin: 08/30/22 22:04 Dose: Not Given Documented By: DARREL Non-Admin Reason: Patient Refused Levothyroxine Sodium (Levothyroxine Sodium 50 Mcg Tablet) 50 mcg PO DAILY@0600 [facility] Last Admin: 08/31/22 06:48 Dose: 50 mcg Documented By: SCOTT Lisinopril (Lisinopril 2.5 Mg Tablet) 2.5 mg PO DAILY [facility]; Protocol Last Admin: 08/31/22 10:15 Dose: 2.5 mg Documented By: FAHAD Loperamide HCl (Loperamide Hcl 2 Mg Capsule) 2 mg PO Q6H PRN PRN Reason: Diarrhea Last Admin: 08/31/22 10:23 Dose: 2 mg Documented By: FAHAD Lorazepam (Lorazepam 0.5 Mg Tablet) 0.5 mg PO BEDTIME PRN PRN Reason: Anxiety Last Admin: 08/28/22 21:09 Dose: 0.5 mg Documented By: RODRI Melatonin (Melatonin 3 Mg Tablet) 3 mg PO BEDTIME PRN PRN Reason: Sleep Last Admin: 08/28/22 21:09 Dose: 3 mg Documented By: RODRI Metformin HCl (Metformin Hcl Er 500 Mg Tab.Er.24h) 1,000 mg PO BIDWM [facility] Last Admin: 08/31/22 10:14 Dose: 1,000 mg Documented By: FAHAD Multivitamins/Vitamin C (Multivitamin Tablet) 1 tab PO DAILY [facility] Last Admin: 08/31/22 10:14 Dose: 1 tab Documented By: FAHAD Omeprazole (Omeprazole 20 Mg Capsule.Dr) 20 mg PO DAILY@0630 [facility] Last Admin: 08/31/22 06:48 Dose: 20 mg Documented By: SCOTT Ondansetron HCl (Ondansetron Hcl 4 Mg/2 Ml Vial) 4 mg IVPUSH Q8H PRN PRN Reason: Nausea and Vomiting Last Admin: 08/31/22 10:24 Dose: 4 mg Documented By: FAHAD Oxycodone HCl (Oxycodone Hcl Immed Release 5 Mg Tablet) 5 mg PO Q6H PRN PRN Reason: Pain, Moderate (Pain Scale 4-6 Last Admin: 08/31/22 06:48 Dose: 5 mg Documented By: SCOTT Pharmacy Consult (Consult Rx Perform Med Rec) 1 each MISCELLANE ONCE PRN PRN Reason: Consult order Prochlorperazine Maleate (Prochlorperazine Maleate 5 Mg Tablet) 10 mg PO Q8H PRN PRN Reason: Nausea And Vomiting Last Admin: 08/30/22 21:06 Dose: 10 mg Documented By: DARREL Senna (Sennosides 8.6 Mg Tablet) 17.2 mg PO BEDTIME PRN PRN Reason: Constipation Sodium Chloride (0.9 % Sodium Chloride Flush 3 Ml Syringe) 3 ml IVFLUSH QSHIFT [facility] Last Admin: 08/31/22 10:15 Dose: 3 ml Documented By: FAHAD Zinc Oxide (Zinc Oxide (Triple Paste) 56.7 Gm Oint) 1 appl TOPICAL QID PRN; Protocol PRN Reason: barrier cream/ ulcer Last Admin: 08/29/22 12:11 Dose: 1 appl Documented By: TRICIA Labs CBC & Chem 7: 08/30/22 07:25 08/30/22 07:25 Labs: Laboratory Results - last 24 hr 08/29/22 08/30/22 08/30/22 05:45 14:00 14:00 CA 19-9 Antigen 313 H Stl C. cayetanensis PCR Not Detected Stool Rotavirus A PCR Not Detected Stl Adenov F 40/41 PCR Not Detected Stool Astrovirus (PCR) Not Detected Stool Campylobacter PCR Not Detected Stool Cryptosporidium PCR Not Detected Stl Sh Tox Pr E STEC PCR Not Detected Stool E coli O157 PCR Not applicable Stl Enterotoxigenic E PCR Not Detected Stool EPEC (PCR) Not Detected Stool EAEC (PCR) Not Detected Stl E. histolytica PCR Not Detected Stool Giardia Lamblia PCR Not Detected Stl P. shigelloides PCR Not Detected Stool Salmonella PCR Not Detected Stool Sapovirus (PCR) Not Detected Stl Shigella/EIEC PCR Not Detected St Y.enterocolitica PCR Not Detected Stool Vibrio (PCR) Not Detected Stl Vibrio cholerae PCR Not Detected Stl Norovirus GI/GII PCR Not Detected C. difficile Tox B Gene NEGATIVE Microbiology Microbiology Results: Microbiology 08/28/22 17:04 Blood Culture - Preliminary Blood - Venous No growth after 48 hours. 08/28/22 17:05 Blood Culture - Preliminary Blood - Venous No growth after 48 hours. Assessment and Plan (1) Pancytopenia due to chemotherapy: Status: Acute (2) Symptomatic anemia: Status: Acute (3) Pancreatic adenocarcinoma: Status: Acute (4) COVID-19: Status: Acute Plan 71-year-old female with a past medical history of hypertension, hyperlipidemia, diabetes, hypothyroidism, anemia, history of metastatic pancreatic cancer with peritoneal carcinomatosis, ascites, anxiety, depression?to be observed for pancytopnea requiring granix and transfusion pancytopenia- secondary to metastatic pancreatic cancer -received 1 unit packed red blood cells and Granix in the ED -blood counts improved, but still pancytopenic. WBC 2.0, RBC 3.25, H/H: 9.3/27.3% -oncology following recommending STR due to ongoing weakness # COVID-19 -has been tested positive for COVID-19 since 08/10/2022 -asymptomatic without hypoxia -symptomatic management stage I/II decubitus ulcer sacrum-present on arrival -reposition often-at least once shift -zinc oxide for barrier cream metastatic pancreatic cancer with pancytopenia and history ascites due to low protein -as above -outpatient follow-up with Oncology -pain management using pain scale -ondansetron and Compazine p.r.n. for nausea -continue Lasix for ascites -liver function stable [id number] type 2 diabetes -POC glucose -Humalog on sliding scale -diabetic diet hypothyroidism -continue Synthroid Acute diarrhea -GI panel and CDiff negative -Immodium PRN if studies negative ?DVT prophylaxis with Lovenox ?full code reason for continued hospitalization:awaiting acceptance to [facility] Quality Stroke Does the patient have a stroke diagnosis?: No VTE Prior VTE?: No VTE Risk Level:: Medical - moderate - high VTE Device Contraindication: Treatment Not Indicated VTE Drug Contraindication: Treatment Not Indicated
== END 2022-08-31 16:09 | disposition skilled nursing facility (03) ==
LOC: HO.ED 17:37 → HO.EDOVER 19:42 → HO.IMC 08-29 14:59
PROVIDERS: Internal Medicine; Physician Assistant; Admitting Provider Physician Assistant; Emergency Provider Internal Medicine; PCP Physician Assistant; Visit Provider Internal Medicine
DX: U07.1 COVID-19 (principal); D64.81 Anemia due to antineoplastic chemotherapy; D61.810 Antineoplastic chemotherapy induced pancytopenia; T45.1X5A Adverse effect of antineoplastic and immunosuppressive drugs, initial encounter; Y92.019 Unspecified place in single-family (private) house as the place of occurrence of the external cause; R18.8 Other ascites; R19.7 Diarrhea, unspecified; L89.152 Pressure ulcer of sacral region, stage 2; R62.7 Adult failure to thrive; Z68.25 Body mass index [BMI] 25.0-25.9, adult; C25.9 Malignant neoplasm of pancreas, unspecified; C78.6 Secondary malignant neoplasm of retroperitoneum and peritoneum; E11.9 Type 2 diabetes mellitus without complications; I10 Essential (primary) hypertension; E78.5 Hyperlipidemia, unspecified; Z92.21 Personal history of antineoplastic chemotherapy; Z79.899 Other long term (current) drug therapy; Z79.02 Long term (current) use of antithrombotics/antiplatelets; Z79.84 Long term (current) use of oral hypoglycemic drugs; Z87.891 Personal history of nicotine dependence
CPT/HCPCS: 36415; 36430; 71045; 80048; 80053; 80076; 82272; 82947; 83605; 83690; 84484; 85025; 85610; 85730; 86301; 86850; 86900; 86901; 86923; 87040; 87493; 87507; 87635; 93005; 96361; 96372; 96374; 96375; 96376; 97162; 99219; 99285; J1170; J1447; J1650; J2405; P9016

== ENCOUNTER 2022-09-29 22:30 | Emergency (ER) | payer MEDICARE, SELFPAY ==
[2022-09-29 22:44] VITALS: BP 102/78; BP 111/62; PULSE 102; PULSE 104; RESP 22; TEMP 37; O2SAT 100; BMI 24.1
[2022-09-29 23:23] VITALS: BP 111/62; PULSE 102; RESP 22; TEMP 37; O2SAT 100
--- NOTE | 2022-09-29 23:27 | PC.NURSE ---
Pt's BP is normal, Pt is sinus tachy upon arrival. Pt's abd is rigid and she has bilaterally all quadrants hyperative bowel sound, she also has nausea. Pt denies any other symptoms.
--- NOTE | 2022-09-29 23:32 | ECG_ITS ---
Test Reason : ABD PAIN Blood Pressure : / mmHG Vent. Rate : 091 BPM Atrial Rate : 091 BPM P-R Int : 172 ms QRS Dur : 070 ms QT Int : 340 ms P-R-T Axes : 056 -06 062 degrees QTc Int : 418 ms Normal sinus rhythm Low voltage QRS Otherwise normal ECG When compared with ECG of 28-AUG-2022 17:43, No significant change was found Referred By: Caitlin Benitez Electronically Signed By:ELY BENJAMIN
--- NOTE | 2022-09-29 23:40 | ED.ABDPAIN ---
HPI - Abdominal Pain General Chief Complaint: Abdominal Pain Stated Complaint: DISTENTED [facility] FROM SN[facility] PER EMS Time Seen by Provider: 09/29/22 22:48 Source: patient Mode of arrival: EMS Limitations: no limitations History of Present Illness HPI narrative: Patient comes to the emergency room from [place]. Patient complaining of abdominal distension and discomfort from the distension itself. Patient has history of metastatic pancreatic cancer, type 2 diabetes, hypothyroidism. Patient states that she is scheduled for a therapeutic paracentesis tomorrow. Patient states that she could not take the pressure in her abdomen anymore and ask the staff to call the paramedics. Patient denies chest pain. Patient states that she has been using oxygen for several eyes now, states she has been a bit short of breath Related Data Home Medications Medication Instructions Recorded Confirmed levothyroxine 50 mcg tablet 1 tab PO DAILY@0600 08/10/22 09/26/22 lorazepam 0.5 mg tablet 0.5 mg PO BEDTIME PRN Anxiety 08/10/22 09/26/22 metformin 500 mg tablet,extended 1,000 mg PO BID 08/10/22 09/26/22 release 24 hr potassium chloride 10 mEq 2 tab PO DAILY 08/10/22 09/26/22 tablet,extended release acetaminophen 300 mg-codeine 30 mg 1 tab PO Q8H PRN Pain 08/13/22 09/26/22 tablet aluminum-mag hydroxide-simethicone 5 ml PO Q6H PRN Indigestion 08/13/22 09/26/22 400 mg-400 mg-40 mg/5 mL oral susp (Laisha-Lanta) dexamethasone 4 mg tablet See Rx Instructions .Route .COMPLEX 08/13/22 09/26/22 fluticasone propionate 50 1 spray intranasal DAILY 08/13/22 09/26/22 mcg/actuation nasal spray,suspension latanoprost 0.005 % eye drops 1 drp ophthalmic (eye) QPM 08/13/22 09/26/22 multivitamin 1 tab PO DAILY 08/13/22 09/26/22 pantoprazole 40 mg tablet,delayed 1 tab PO DAILY 08/13/22 09/26/22 release simvastatin 40 mg tablet 40 mg PO BEDTIME 08/13/22 09/26/22 atenolol 25 mg tablet 0.5 tab PO DAILY 08/22/22 09/26/22 estradiol 0.5 mg tablet 0.5 mg PO DAILY 08/28/22 09/26/22 lisinopril 2.5 mg tablet 2.5 mg PO DAILY 08/28/22 09/26/22 melatonin 3 mg tablet 3 mg PO BEDTIME PRN Sleep 08/28/22 09/26/22 Previous Rx's Medication Instructions Recorded furosemide 20 mg tablet (Lasix) 20 mg PO DAILY #30 tabs 08/14/22 oxycodone 5 mg tablet 1 tab PO TID PRN Pain #30 tabs 08/16/22 prochlorperazine maleate 10 mg 10 mg PO Q8H PRN Nausea And 08/23/22 tablet (Compazine) Vomiting #30 tabs loperamide 2 mg capsule 2 mg PO Q6H PRN Diarrhea #0 caps 08/31/22 Allergies Allergy/AdvReac Type Severity Reaction Status Date / Time amoxicillin [From Augmentin] Allergy Intermediate rash Verified 08/22/22 11:11 cefuroxime [From CEFTIN] Allergy Intermediate RASH Verified 08/22/22 11:11 clavulanic acid Allergy Intermediate rash Verified 08/22/22 11:11 [From Augmentin] doxycycline [DOXYCYCLINE] Allergy Intermediate HIVES Verified 08/22/22 11:11 Sulfa (Sulfonamide Allergy Intermediate unknown Verified 08/22/22 11:11 Antibiotics) Review of Systems Review of Systems Constitutional : No Weight loss, No Fever, No Chills, No Night Sweats, No Fatigue, No Malaise ENT/Mouth : No Hearing loss, No Ear Pain, No Nasal Congestion, No Sinus Pain, No Hoarseness, No sore throat, No Rhinorrhea, No Swallowing Difficulty Eyes: No Eye Pain, No Swelling, No Redness, No Foreign Body, No Discharge, No Vision Changes Cardiovascular : No Chest Pain, No SOB, No Dyspnea on Exertion, No Orthopnea, No Edema, No Palpitations Respiratory : No Cough, No Sputum, No Wheezing, No Smoke Exposure, No Dyspnea Gastrointestinal : Complaining of abdominal distention impression secondary to ascites Genitourinary : no irregular bleeding, No Dysuria, No Urinary Frequency, No Hematuria, No Urinary Incontinence, No Urgency, No Flank Pain, No Urinary Flow Changes, No Hesitancy Musculoskeletal : No joint pain, No Myalgias, No Joint Swelling Skin : No Skin Lesions, No rash Neuro : No Weakness, No Numbness, No Paresthesias, No Loss of Consciousness, No Dizziness, No Headache Psych : No Anxiety/Panic, No Depression, No SI/HI/AH/VH, No Social Issues, Heme/Lymph: No Bruising, No Bleeding,No Lymphadenopathy Endocrine : No Polyuria, No Polydipsia, No Temperature Intolerance [facility] Past Medical History Medical History Acute sinusitis Anemia Ascites Carcinomatosis peritonei Cardiac arrhythmia Chest pain Diabetes Dysuria Dysuria Flank pain VERO (generalized anxiety disorder) GERD (gastroesophageal reflux disease) HLD (hyperlipidemia) HTN (hypertension) Hypothyroidism Left knee pain Leg edema Metastasis from pancreatic cancer Pancreatic adenocarcinoma Post-menopausal Recurrent UTI Rib pain on right side Sinusitis Urinary frequency Urinary tract infection UTI (urinary tract infection) Yeast infection of the vagina Surgical History H/O: hysterectomy History of cardiac radiofrequency ablation Family History Family History Father CVD (cardiovascular disease) Mother No problems noted. Social History Social History Household Members: Spouse Housing: House Do you presently have visiting nurse or other home services: No Alcohol intake: never Patient Tobacco Use Status: Former Tobacco user Quit Date: 40 years ago Tobacco use type: Cigarette Smoked in Last 30 Days: No e-Cigarette/Vaping Use: Former Use Second Hand Smoke Exposure: Yes Use of substances other than those prescribed or required for medical reasons: No Advance Directives: Yes Advance Directives on File: Yes Advance Directives Date on File: 06/21/22 service: No Current occupational status: retired Current occupation: rt handed Cognitive needs: No Hearing needs: No Vision needs: Yes Physical Exam ED Vital Signs: Vital Signs - 24 hr 09/29/22 22:44 09/29/22 23:23 09/30/22 01:03 Temperature 98.6 F 98.6 F 98.7 F Pulse Rate 102 H 102 H 95 Respiratory Rate 22 H 22 H 16 Blood Pressure 111/62 111/62 127/73 Pulse Oximetry 100 100 96 Oxygen Delivery Method Room Air Room Air Nasal Cannula Oxygen Flow Rate 3 09/30/22 01:45 09/30/22 04:12 09/30/22 06:09 Temperature 98.2 F 98.6 F Pulse Rate 84 83 84 Respiratory Rate 16 16 Blood Pressure 114/65 81/50 L 78/39 L Pulse Oximetry 98 Oxygen Delivery Method Nasal Cannula Nasal Cannula Oxygen Flow Rate 3 3 09/30/22 06:22 09/30/22 06:57 09/30/22 07:00 Temperature 97.5 F 97.5 F Pulse Rate 80 77 81 Respiratory Rate 17 14 Blood Pressure 83/44 L 71/35 L 84/43 L Pulse Oximetry 97 100 Oxygen Delivery Method Nasal Cannula Nasal Cannula Oxygen Flow Rate 3 3 09/30/22 07:20 Temperature 100.1 F Pulse Rate 86 Respiratory Rate 19 Blood Pressure 83/38 L Pulse Oximetry Oxygen Delivery Method Oxygen Flow Rate BMI result Body Mass Index 24.1 Const Other: Appearance: Alert. Oriented X3. No acute distress. Eyes: Pupils equal, round and reactive to light. ENT: Pharynx normal. Neck: Normal inspection. Neck supple. No lymph nodes noted. No crepitus CVS: Normal heart rate and rhythm. Pulses normal. Normal S1 and S2 Respiratory: No respiratory distress. Breath sounds normal. No Wheezing. No rales Abdomen: Distended, does not have any significant tenderness, only pressure Skin: Skin warm and dry. Normal skin color. Normal skin turgor. Extremities: No lower extremity edema. No Lacerations. No Rash Neuro: Oriented X 3. No motor deficit. No sensory deficit. Moving all extremities. No slurred speech. CN 2 through 12 grossly intact Psych: calm, cooperative, normal affect Course Course Course Narrative: Will obtain an INR, basic labs. Then, will do a therapeutic paracentesis PARACENTESIS WAS DONE, 7 L WERE OBTAINED, PATIENT RECEIVING ALBUMIN. Patient's blood pressure dropped to the 70s secondary to the paracentesis, sepsis not suspected. Patient also given 1 dose of phenylephrine. Patient asymptomatic, mentating well Patient has received 75 albumin. 1 L of normal saline. Patient's blood pressure still in the low 80s. Dr. Otero assessed the patient. We will give 100 more of albumin and 1 L of lactated Ringer's. If patient's blood pressure improves, at least 90mmHg patient can still be discharged. Peritoneal fluid labs do not look suspicious for SBP. Sign-out given to Dr. Rodas, BP checks please Medical Decision Making Lab Data Result Diagrams: 09/30/22 01:15 09/30/22 01:15 Labs: Lab Results 09/30/22 09/30/22 09/30/22 Range/Units 01:15 01:15 01:15 WBC 14.2 H (4.8-10.8) X10*3/uL RBC 2.65 L (4.20-5.50) X10*6/uL Hgb 7.6 L (12.0-16.0) g/dl Hct 23.6 L (37.0-47.0) % MCV 89.1 (80.0-98.0) fL MCH 28.7 (27.0-33.0) pg MCHC 32.2 (31.0-35.0) g/dl RDW 17.1 H (11.0-16.0) % Plt Count 359 (160-400) X10*3/uL MPV 9.1 L (9.4-12.3) fL Immature Gran % (Auto) 1.2 H (0.0-0.4) % Neut % (Auto) 69.2 (45-73) % Lymph % (Auto) 22.5 (20-40) % [place] % (Auto) 6.0 (2-11) % Eos % (Auto) 0.9 (0-4) % Baso % (Auto) 0.2 (0-2) % Lymph # (Auto) 3.2 (1.2-4.9) X10*3/uL [place] # (Auto) 0.9 (0.1-1.2) X10*3/uL Eos # (Auto) 0.1 (0.0-0.4) X10*3/uL Baso # (Auto) 0.0 (0.0-0.2) X10*3/uL Abs Immat Gran (auto) 0.17 H (0.00-0.03) X10*3/uL Absolute Neuts (auto) 9.8 H (2.0-8.3) x10*3/uL Absolute Nucleated RBC 0.000 (0.0-0.012) X10*3/uL Nucleated RBC % (auto) 0.0 (0.0-0.2) /100WBC PT 13.4 H (10.0-13.1) SEC INR 1.2 H (0.9-1.1) Sodium 133 L (135-145) mmol/L Potassium 5.0 (3.3-5.1) mmol/L Chloride 109 H (96-108) mmol/L Carbon Dioxide 16 L (22-29) mmol/L Anion Gap 13 (12-20) BUN 20 H (9-16) mg/dL Creatinine 1.47 H (0.5-1.4) mg/dL Estim Creat Clear Calc 28.1 Estimated GFR 35 Random Glucose 98 (60-115) mg/dL Calcium 8.6 (8.4-10.2) mg/dL Total Bilirubin 0.3 (0.0-1.0) mg/dL Direct Bilirubin < 0.2 (0.0-0.5) mg/dL AST 15 (5-31) U/L ALT 9 (0-31) U/L Alkaline Phosphatase 139 H (39-117) U/L Total Protein 5.4 L (6.5-8.0) g/dL Albumin 2.6 L (3.5-5.0) g/dL Lipase 16 (8-78) U/L Peritoneal WBC X10*3/uL Peritoneal RBC X10*6/uL [place] Neutrophils % Periton Lymphocytes % Peritoneal Other Cells % Influenza Type A (PCR) (Negative) Influenza Type B (PCR) (Negative) RSV RNA Qual (PCR) (Negative) SARS-CoV-2 RNA (RT-PCR) (Negative) 09/30/22 09/30/22 Range/Units 01:15 06:49 WBC (4.8-10.8) X10*3/uL RBC (4.20-5.50) X10*6/uL Hgb (12.0-16.0) g/dl Hct (37.0-47.0) % MCV (80.0-98.0) fL MCH (27.0-33.0) pg MCHC (31.0-35.0) g/dl RDW (11.0-16.0) % Plt Count (160-400) X10*3/uL MPV (9.4-12.3) fL Immature Gran % (Auto) (0.0-0.4) % Neut % (Auto) (45-73) % Lymph % (Auto) (20-40) % [place] % (Auto) (2-11) % Eos % (Auto) (0-4) % Baso % (Auto) (0-2) % Lymph # (Auto) (1.2-4.9) X10*3/uL [place] # (Auto) (0.1-1.2) X10*3/uL Eos # (Auto) (0.0-0.4) X10*3/uL Baso # (Auto) (0.0-0.2) X10*3/uL Abs Immat Gran (auto) (0.00-0.03) X10*3/uL Absolute Neuts (auto) (2.0-8.3) x10*3/uL Absolute Nucleated RBC (0.0-0.012) X10*3/uL Nucleated RBC % (auto) (0.0-0.2) /100WBC PT (10.0-13.1) SEC INR (0.9-1.1) Sodium (135-145) mmol/L Potassium (3.3-5.1) mmol/L Chloride (96-108) mmol/L Carbon Dioxide (22-29) mmol/L Anion Gap (12-20) BUN (9-16) mg/dL Creatinine (0.5-1.4) mg/dL Estim Creat Clear Calc Estimated GFR Random Glucose (60-115) mg/dL Calcium (8.4-10.2) mg/dL Total Bilirubin (0.0-1.0) mg/dL Direct Bilirubin (0.0-0.5) mg/dL AST (5-31) U/L ALT (0-31) U/L Alkaline Phosphatase (39-117) U/L Total Protein (6.5-8.0) g/dL Albumin (3.5-5.0) g/dL Lipase (8-78) U/L Peritoneal WBC 0.069 X10*3/uL Peritoneal RBC < 0.002 X10*6/uL [place] Neutrophils 5 % Periton Lymphocytes 5 % Peritoneal Other Cells 90 % Influenza Type A (PCR) NEGATIVE (Negative) Influenza Type B (PCR) NEGATIVE (Negative) RSV RNA Qual (PCR) NEGATIVE (Negative) SARS-CoV-2 RNA (RT-PCR) NEGATIVE (Negative) Medications Administered Discontinued Medications Generic Name Dose Route Start Last Admin Trade Name Freq PRN Reason Stop Dose Admin Albumin Human 100 mls @ 100 mls/hr 09/30/22 04:00 09/30/22 05:31 Kedbumin 25 % IV 09/30/22 05:59 Infused Q1H NUPUR Infusion Albumin Human 100 mls @ 100 mls/hr 09/30/22 06:17 09/30/22 05:00 Kedbumin 25 % IV 09/30/22 07:16 Infused ONCE ONE Infusion Lidocaine HCl 5 ml 09/29/22 23:52 09/30/22 00:00 Lidocaine Hcl 2 % Mpf 5 Ml Vial INFILTRATI 09/29/22 23:53 5 ml ONCE ONE Administration Ondansetron HCl 4 mg 09/30/22 06:15 09/30/22 06:16 Ondansetron Hcl 4 Mg/2 Ml Vial IVPUSH 09/30/22 06:16 4 mg ONCE ONE Administration Phenylephrine HCl 0.1 mg 09/30/22 05:52 09/30/22 06:09 Phenylephrine Hcl 10 Mg/Ml Vial IVPUSH 09/30/22 05:53 0.1 mg ONCE ONE Administration Phenylephrine HCl 0.1 mg 09/30/22 06:58 09/30/22 07:00 Phenylephrine Hcl 10 Mg/Ml Vial IVPUSH 09/30/22 06:59 0.1 mg ONCE ONE Administration Prochlorperazine Edisylate 10 mg 09/30/22 06:36 09/30/22 06:52 Prochlorperazine Edisylate 10 Mg/2 Ml Vial IVPUSH 09/30/22 06:37 10 mg ONCE ONE Administration Discharge Plan Discharge Clinical Impression: Ascites, Acute hypotension Patient Disposition: Still a Patient Prescriptions: No Action oxycodone 5 mg tablet 1 tab PO TID PRN (Reason: Pain) Qty: 30 0RF atenolol 25 mg tablet 0.5 tab PO DAILY prochlorperazine maleate [Compazine] 10 mg Tablet 10 mg PO Q8H PRN (Reason: Nausea And Vomiting) Qty: 30 4RF potassium chloride 10 mEq tablet extended release 2 tab PO DAILY lorazepam 0.5 mg tablet 0.5 mg PO BEDTIME PRN (Reason: Anxiety) levothyroxine 50 mcg tablet 1 tab PO DAILY@0600 metformin 500 mg tablet extended release 24 hr 1,000 mg PO BID multivitamin Tablet 1 tab PO DAILY acetaminophen-codeine 300-30 mg tablet 1 tab PO Q8H PRN (Reason: Pain) pantoprazole 40 mg tablet,delayed release (DR/EC) 1 tab PO DAILY latanoprost 0.005 % Drops 1 drp OPHTHALMIC (EYE) QPM simvastatin 40 mg Tablet 40 mg PO BEDTIME dexamethasone 4 mg Tablet See Rx Instructions .ROUTE .COMPLEX Rx Instructions: 1 tablet twice a day for 2 days post chemo alum-mag hydroxide-simeth [Liasha-Lanta] 400-400-40 mg/5 mL Suspension 5 ml PO Q6H PRN (Reason: Indigestion) fluticasone propionate 50 mcg/actuation [place],Suspension 1 spray INTRANASAL DAILY Rx Instructions: administer into each nostril furosemide [Lasix] 20 mg tablet 20 mg PO DAILY Qty: 30 0RF lisinopril 2.5 mg Tablet 2.5 mg PO DAILY melatonin 3 mg Tablet 3 mg PO BEDTIME PRN (Reason: Sleep) estradiol 0.5 mg Tablet 0.5 mg PO DAILY Rx Instructions: off 5 days; repeat cycle loperamide 2 mg Capsule 2 mg PO Q6H PRN (Reason: Diarrhea) Qty: 0 0RF
[2022-09-30] VITALS (13 sets, daily range): BP systolic 71–127; BP diastolic 35–73; PULSE 72–95; RESP 14–22; TEMP 36.4–37.8; O2SAT 96–100
[2022-09-30] MEDS: Lidocaine HCl 2 % MPF 5 ML VIAL INFILTRATI
--- NOTE | 2022-09-30 01:04 | MHC.EDTECH ---
pt got private branch exchange installer into hospital attire ,ekg done vs taken and blood drawn done .
[2022-09-30 01:27] LABS: Basophils Percent Auto 0.2 % (0-2); Eosinophils Absolute Auto 0.1 X10*3/uL (0.0-0.4); Eosinophils Percent Auto 0.9 % (0-4); Hematocrit 23.6 % (37.0-47.0); Hemoglobin 7.6 g/dl (12.0-16.0); Imm Gran Abs Auto 0.17 X10*3/uL (0.00-0.03); Imm Gran Pct Auto 1.2 % (0.0-0.4); Lymphocytes Absolute Auto 3.2 X10*3/uL (1.2-4.9); Lymphocytes Percent Auto 22.5 % (20-40); MANUAL DIFF FLAG NO; Mean Corpuscular HGB Conc 32.2 g/dl (31.0-35.0); Mean Corpuscular Hemoglobin 28.7 pg (27.0-33.0); Mean Corpuscular Volume 89.1 fL (80.0-98.0); Mean Platelet Volume 9.1 fL (9.4-12.3); Monocytes Absolute Auto 0.9 X10*3/uL (0.1-1.2); Neutrophils Absolute Auto 9.8 x10*3/uL (2.0-8.3); Neutrophils Percent Auto 69.2 % (45-73); Platelet Count 359 X10*3/uL (160-400); Red Blood Count 2.65 X10*6/uL (4.20-5.50); Red Cell Distribution Width 17.1 % (11.0-16.0); White Blood Count 14.2 X10*3/uL (4.8-10.8)
[2022-09-30 01:32] LABS: INTERNATIONAL NORM RATIO 1.2 (0.9-1.1); Prothrombin Time 13.4 SEC (10.0-13.1)
[2022-09-30 01:44] LABS: Alanine Aminotransferase 9 U/L (0-31); Albumin Level 2.6 g/dL (3.5-5.0); Alkaline Phosphatase 139 U/L (39-117); Anion Gap 13 (12-20); Aspartate Amino Transferase 15 U/L (5-31); Bilirubin Direct < 0.2 mg/dL (0.0-0.5); Bilirubin Total 0.3 mg/dL (0.0-1.0); Blood Urea Nitrogen 20 mg/dL (9-16); Calcium 8.6 mg/dL (8.4-10.2); Carbon Dioxide 16 mmol/L (22-29); Chloride 109 mmol/L (96-108); Creatinine Clr Calc Pharmacy 28.1; Estimated Glomerular Filt Rate 35; Glucose Random 98 mg/dL (60-115); Lipase 16 U/L (8-78); Sodium 133 mmol/L (135-145); Total Protein 5.4 g/dL (6.5-8.0)
--- NOTE | 2022-09-30 01:46 | MHC.EDTECH ---
pt was incontinent of urine ,care given and bedding change .
[2022-09-30 02:07] LABS: Influenza A PCR NEGATIVE (Negative); Influenza B PCR NEGATIVE (Negative); Resp Syncy Virus RNA Qual PCR NEGATIVE (Negative); SARS COV2 PCR INHOUSE NEGATIVE (Negative)
[2022-09-30] MEDS: Albumin Human 25 % 100 ML IV ×4 (03:57→09:18)
--- NOTE | 2022-09-30 04:32 | PC.NURSE ---
Re-assess: Pt's BP is in the low side, pt is on the monitor and it shows a-fib, provider was at bedside. pt was re-position in to [place] d/t BP is in the low side. Pt has albumin running as order. Pt had 7 1/2 of paracenthesis vacuum bottles drawn d/t pt had acistes. Pt is on 3L, 100 %, Spo2 sensor was placed in the right earlobe. pt has pitting edema +3 on her foot bilaterally. capillary refill >2. this nurse is at bedside monitor pt's BP.
--- NOTE | 2022-09-30 05:11 | PC.NURSE ---
Addendum entered by Tana Conway 09/30/22 05:12: Pt's BP is re cycling every 2 mins for her BP. Original Note: Pt's continue to be hypotensive, provider is notified.
[2022-09-30] MEDS: Phenylephrine HCL 10 MG/ML VIAL IVPUSH ×2 (06:09→07:00)
[2022-09-30] MEDS: ondansetron HCL 4 MG/2 ML VIAL IVPUSH ×2 (06:16→08:40)
[2022-09-30] MEDS: Prochlorperazine Edisylate 10 MG/2 ML VIAL IVPUSH (06:52)
--- NOTE | 2022-09-30 06:55 | PC.NURSE ---
Pt's meds were given as order by the provider. Pt continues being hypotensive /35. provider has been notifed.
[2022-09-30 07:26] LABS: MN% 76.7 %; PMN% 23.3 %; WBC Peritoneal Fluid 0.069 X10*3/uL
[2022-09-30 08:14] LABS: RBC Peritoneal Fluid < 0.002 X10*6/uL
[2022-09-30 08:30] LABS: BF Shift QC OK YES; Lymphocyte Peritoneal Fl 5 %; Man Diluent Bkgrd OK YES; Neutrophils Peritoneal Fluid 5 %; Other Peritioneal Fl 90 %
[2022-09-30] MEDS: Lactated Ringers 500 ML 999 ML IV (09:17)
--- NOTE | 2022-09-30 10:51 | PC.NURSE ---
patient a&ox3, awake overnight monitor intact nsr 80s, vitals obtained- pt bp still soft- denies symptoms at this time, 3L nc- pt not home o2 dependent, pure wick intact, pt c/o left abd pain 04/22 and wanting PO, will speak with provider and continue to monitor
[2022-09-30 11:01] LABS: Glucose Peritoneal Fluid 97 MG/DL; LDH Peritoneal Fluid 104 U/L; Total Protein Peritoneal Fluid 3.3 GM/DL
[2022-09-30] MEDS: oxyCODONE HCl Immed Release 5 MG TABLET PO (11:02)
--- NOTE | 2022-09-30 13:35 | PC.NURSE ---
this nurse called report to dustin humphries.
== END 2022-09-30 14:22 | disposition skilled nursing facility (03) ==
PROVIDERS: Emergency Medicine; Emergency Provider Emergency Medicine; PCP Physician Assistant
DX: R18.8 Other ascites (principal); I95.9 Hypotension, unspecified; R60.0 Localized edema; R14.0 Abdominal distension (gaseous); Z20.822 Contact with and (suspected) exposure to COVID-19; E11.9 Type 2 diabetes mellitus without complications; I10 Essential (primary) hypertension; E78.5 Hyperlipidemia, unspecified; Z85.07 Personal history of malignant neoplasm of pancreas; Z99.81 Dependence on supplemental oxygen; Z79.899 Other long term (current) drug therapy; Z79.02 Long term (current) use of antithrombotics/antiplatelets
CPT/HCPCS: 0241U; 36415; 49082; 80048; 80076; 82945; 83615; 83690; 84157; 85025; 85610; 87070; 87073; 87205; 89051; 93005; 96361; 96365; 96366; 96375; 96376; 99285; J2370; J2405; P9047

== ENCOUNTER 2022-10-09 13:58 | Inpatient (IN) | payer MEDICARE, SELFPAY ==
--- NOTE | ~2022-10-09 | US_ITS ---
EXAMINATION: ULTRASOUND-GUIDED PORTABLE PARACENTESIS. CLINICAL INFORMATION: Ascites. COMPARISON: None TECHNIQUE: Following explaining ultrasound-guided paracentesis procedure, benefits and risk, a written consent was obtained from the patient. Preliminary ultrasound imaging was obtained through the abdomen. An optimal site was selected along the right lower quadrant and marked. The marked site was cleaned and draped in usual sterile manner. 1% lidocaine was injected puncture site. Through a small skin incision a 4 [employer] catheter was advanced into the peritoneal space. After observing fluid return, stylet was withdrawn and catheter connected to vacuum bottle. After obtaining all fluid and observing no more fluid return, the catheter was removed and complete hemostasis achieved at puncture site. Sterile dressing applied postprocedure. Patient tolerated procedure extremely well.. FINDINGS: There is moderate to large amount of ascites seen on preliminary ultrasound imaging. Approximately 6 L of clear yellowish fluid was drained from the right lower quadrant. US/US paracentesis abd w/image IMPRESSION: Successful portable ultrasound-guided diagnostic and therapeutic paracentesis performed.
--- NOTE | ~2022-10-09 | XR_ITS ---
EXAMINATION: XR CHEST CLINICAL INFORMATION: Weakness. Rule out pneumonia. COMPARISON: Previous chest CT most recent August 2022 TECHNIQUE: Frontal view of the chest was obtained. FINDINGS: The cardiac and mediastinal contours are stable. There is subsegmental atelectasis at the right lung base. There is a left apical pleural calcification. This appears similar to previous exams. The lungs are otherwise clear. No pleural effusion or pneumothorax. Right jugular port with tip projecting over the SVC. Degenerative changes of the spine. XR/XR chest 1V IMPRESSION: No evidence for acute disease in the chest.
--- NOTE | ~2022-10-09 | CT_ITS ---
EXAMINATION: CT ABDOMEN AND PELVIS WITHOUT CONTRAST CLINICAL INFORMATION: Abdominal pain COMPARISON: Previous CT of the abdomen and pelvis July 2022 TECHNIQUE: Multidetector volumetric imaging was performed from the superior aspect of the liver through the pubic symphysis. Sagittal and coronal reformatted images were obtained on the technologist's workstation. This CT examination was performed using dose optimization techniques as appropriate, variously including the following: *Automated exposure control *Adjustment of mA and/or kV according to patient size (this includes techniques or standardized protocols for targeted exams where dose is matched to indication/reason for exam; i.e. extremities or head) *Use of iterative reconstruction technique DLP: 414 mGy-cm FINDINGS: LIVER, GALLBLADDER, AND BILIARY TREE: The liver is small with question mild cirrhotic changes. No focal liver lesion. Normal size gallbladder. Dependent high attenuation questionable for gallstones. No biliary duct dilatation. PANCREAS: Mild fat stranding seen anterior to the head of the pancreas and question small parenchymal peripancreatic lymph nodes. Atrophic changes of the tail of the pancreas. Question old mass in the neck/body of the pancreas similar to previous exams measuring 1.4 x 2.7 cm for example axial image 41 series 3. Large amount of ascites. SPLEEN: Unremarkable. ADRENAL GLANDS: Nodular appearance to the adrenal gland similar to previous exam. KIDNEYS AND URETERS: The kidneys are normal in size, shape, and attenuation. 2 cm cyst in the lower pole of both kidneys. No imaging follow-up. No hydronephrosis, hydroureter, or calculi seen. No perinephric stranding. BLADDER: Unremarkable. GASTROINTESTINAL TRACT: Diverticulosis of the colon. No evidence of diverticulitis. The small and large bowel are otherwise unremarkable. The appendix is is not seen. ABDOMINAL WALL: No significant hernia is appreciated. LYMPH NODES: Small peripancreatic lymph nodes. Small retroperitoneal lymph nodes abdomen. Small bilateral inguinal lymph nodes. VASCULAR: Atherosclerotic disease. PELVIC VISCERA: Uterus appears to have been removed. No pelvic mass. OSSEOUS STRUCTURES: Degenerative changes of the spine. CT/CT abdomen pelvis wo IV con IMPRESSION: Large amount of ascites. Stable appearance to the pancreas. Question mild cirrhotic changes of the liver. Diverticulosis. Atherosclerotic disease. Bilateral renal cysts. Probable small gallstones. Fleischner guidelines were followed.
--- NOTE | ~2022-10-09 | CT_ITS ---
EXAMINATION: CT CHEST WITHOUT CONTRAST CLINICAL INFORMATION: Chest pain. History of pancreatic cancer. COMPARISON: Previous chest CT May 2022 and chest x-ray from earlier today. TECHNIQUE: Multidetector volumetric CT imaging of the chest was done. Axial MIP volume rendering provided. Sagittal and coronal reformatted images were obtained. This CT examination was performed using dose optimization techniques as appropriate, variously including the following: *Automated exposure control *Adjustment of mA and/or kV according to patient size (this includes techniques or standardized protocols for targeted exams where dose is matched to indication/reason for exam; i.e. extremities or head) *Use of iterative reconstruction technique DLP: 122 mGy-cm FINDINGS: LUNGS: There is atelectasis or small infiltrates in both lower lobes, right greater than left. This is increased from May 2022 exam. The lungs are otherwise clear. No pulmonary nodule. MEDIASTINUM: The mediastinum is normal. Normal heart size. No pericardial effusion. Right jugular port with tip projecting over the cavoatrial junction. CORONARY ARTERY CALCIFICATION: None visualized on this study. PLEURA: There is no pleural effusion. No pleural mass or thickening. AXILLA: No lymphadenopathy. OSSEOUS STRUCTURES: Degenerative changes of the spine. CT/CT chest wo IV con IMPRESSION: Atelectasis or small infiltrates at both lung bases, right greater than left. Fleischner guidelines were followed.
--- NOTE | ~2022-10-09 | XR_ITS ---
EXAMINATION: XR CHEST CLINICAL INFORMATION: Triple lumen catheter placement COMPARISON: CT chest dated 10/09/2022 TECHNIQUE: Frontal view of the chest was obtained. FINDINGS: Right chest wall infusion port catheter terminates at the superior cavoatrial junction. Left internal jugular central venous catheter terminates within the superior right atrium. No pneumothorax. Bibasilar subsegmental atelectasis. Trace left pleural effusion. Normal heart size and pulmonary vascularity. XR/XR chest 1V IMPRESSION: * Left internal jugular central venous catheter terminates within the superior right atrium. * No pneumothorax.
[2022-10-09 14:07] VITALS: BP 91/54; PULSE 90
[2022-10-09 14:12] VITALS: BP 87/48; PULSE 99; RESP 18; TEMP 36.5; BMI 24.3
--- NOTE | 2022-10-09 14:20 | ECG_ITS ---
Test Reason : WEAKNESS, CHEST PAIN Blood Pressure : / mmHG Vent. Rate : 104 BPM Atrial Rate : 104 BPM P-R Int : 158 ms QRS Dur : 066 ms QT Int : 316 ms P-R-T Axes : 062 012 056 degrees QTc Int : 415 ms Sinus tachycardia Low voltage QRS Cannot rule out Anterior infarct , age undetermined Abnormal ECG When compared with ECG of 30-SEP-2022 00:54, No significant change was found Referred By: Sandor Modi Electronically Signed By:JOSE FRANCISCO PABLO MD
[2022-10-09 14:25] LABS: Glucose, Whole Blood 48 mg/dL (60-115)
--- NOTE | 2022-10-09 14:27 | ED.GENADULT ---
HPI - General Adult General Chief complaint: General Medical Stated complaint: hypotensive and hypoglycemic Time Seen by Provider: 10/09/22 14:08 Source: patient, EMS and RN notes reviewed Mode of arrival: EMS Limitations: no limitations History of Present Illness HPI narrative: 72-year-old female with a past medical history of hypertension, hyperlipidemia, diabetes, hypothyroidism, anemia, history of metastatic pancreatic cancer with peritoneal carcinomatosis, ascites, anxiety, depression [facility] pancytopnea secondary to metastatic pancreatic cancer requiring granix and blood transfusion during her admission she tested COVID positive on 08/10/2022 and was asymptomatic without hypoxia. According the patient she was living at home your prior to being hospitalized and since that time has been [facility] facility. Patient reports that she has not been feeling well times 2-3 days. She states she has had nausea and has had several episodes of vomiting. She has been feeling very weak and tired. She had chills but no fever. She had rhinorrhea, slight cough which is nonproductive left-sided abdominal pain, no diarrhea. She states that the left-sided abdominal pain is been constant for weeks, but seems worse over the past several days. today the patient was noted to have a low blood sugars. EMS reported that the patient's blood sugar was 19, she was given D50 in repeat Glucose by the paramedics was 80. Point of care glucose in the emergency department was 48. I ordered 25 g of D50 IV and D5 NS at 125 cc an hour. Patient is awake and alert was able answer questions appropriately. Related Data Home Medications Medication Instructions Recorded Confirmed levothyroxine 50 mcg tablet 1 tab PO DAILY@0600 08/10/22 09/26/22 lorazepam 0.5 mg tablet 0.5 mg PO BEDTIME PRN Anxiety 08/10/22 09/26/22 metformin 500 mg tablet,extended 1,000 mg PO BID 08/10/22 09/26/22 release 24 hr potassium chloride 10 mEq 2 tab PO DAILY 08/10/22 09/26/22 tablet,extended release acetaminophen 300 mg-codeine 30 mg 1 tab PO Q8H PRN Pain 08/13/22 09/26/22 tablet aluminum-mag hydroxide-simethicone 5 ml PO Q6H PRN Indigestion 08/13/22 09/26/22 400 mg-400 mg-40 mg/5 mL oral susp (Laisha-Lanta) dexamethasone 4 mg tablet See Rx Instructions .Route .COMPLEX 08/13/22 09/26/22 fluticasone propionate 50 1 spray intranasal DAILY 08/13/22 09/26/22 mcg/actuation nasal spray,suspension latanoprost 0.005 % eye drops 1 drp ophthalmic (eye) QPM 08/13/22 09/26/22 multivitamin 1 tab PO DAILY 08/13/22 09/26/22 pantoprazole 40 mg tablet,delayed 1 tab PO DAILY@0630 08/13/22 09/26/22 release simvastatin 40 mg tablet 40 mg PO BEDTIME 08/13/22 09/26/22 atenolol 25 mg tablet 0.5 tab PO DAILY 08/22/22 09/26/22 estradiol 0.5 mg tablet 0.5 mg PO DAILY 08/28/22 09/26/22 lisinopril 2.5 mg tablet 2.5 mg PO DAILY 08/28/22 09/26/22 melatonin 3 mg tablet 3 mg PO BEDTIME PRN Sleep 08/28/22 09/26/22 ondansetron HCl 4 mg tablet 1 tab PO Q8H PRN nausea 09/30/22 09/30/22 oxycodone 5 mg tablet 1 tab PO Q6H PRN Moderate Pain 09/30/22 (Scale Score 5-6) Previous Rx's Medication Instructions Recorded furosemide 20 mg tablet (Lasix) 20 mg PO DAILY #30 tabs 08/14/22 prochlorperazine maleate 10 mg 10 mg PO Q8H PRN Nausea And 08/23/22 tablet (Compazine) Vomiting #30 tabs loperamide 2 mg capsule 2 mg PO Q6H PRN Diarrhea #0 caps 08/31/22 Allergies Allergy/AdvReac Type Severity Reaction Status Date / Time amoxicillin [From Augmentin] Allergy Intermediate rash Verified 08/22/22 11:11 cefuroxime [From CEFTIN] Allergy Intermediate RASH Verified 08/22/22 11:11 clavulanic acid Allergy Intermediate rash Verified 08/22/22 11:11 [From Augmentin] doxycycline [DOXYCYCLINE] Allergy Intermediate HIVES Verified 08/22/22 11:11 Sulfa (Sulfonamide Allergy Intermediate unknown Verified 08/22/22 11:11 Antibiotics) Review of Systems Review of Systems: Yes all other systems are reviewed and are negative [facility] Past Medical History [facility] Narrative: Social history: The patient was living at home with her until her recent hospitalization from 07/28/2022 until . She denies tobacco, alcohol and drug use. Medical History Acute sinusitis Anemia Ascites Carcinomatosis peritonei Cardiac arrhythmia Chest pain Diabetes Dysuria Dysuria Flank pain VERO (generalized anxiety disorder) GERD (gastroesophageal reflux disease) HLD (hyperlipidemia) HTN (hypertension) Hypothyroidism Left knee pain Leg edema Metastasis from pancreatic cancer Pancreatic adenocarcinoma Post-menopausal Recurrent UTI Rib pain on right side Sinusitis Urinary frequency Urinary tract infection UTI (urinary tract infection) Yeast infection of the vagina Surgical History H/O: hysterectomy History of cardiac radiofrequency ablation Family History Family History Father CVD (cardiovascular disease) Mother No problems noted. Social History Social History Household Members: Spouse Housing: House Do you presently have visiting nurse or other home services: No Alcohol intake: never Patient Tobacco Use Status: Former Tobacco user Quit Date: 40 years ago Tobacco use type: Cigarette e-Cigarette/Vaping Use: Former Use Second Hand Smoke Exposure: Yes Advance Directives: Yes Advance Directives on File: Yes Advance Directives Date on File: 06/21/22 service: No Current occupational status: retired Current occupation: rt handed Cognitive needs: No Hearing needs: No Vision needs: Yes Physical Exam ED Vital Signs: Vital Signs - 24 hr 10/09/22 14:12 10/09/22 15:05 10/09/22 15:23 Temperature 97.7 F Pulse Rate 99 91 97 Respiratory Rate 18 18 20 Blood Pressure 87/48 L 86/44 L 92/50 L BMI result Body Mass Index 24.3 Const Other: Awake, alert, female patient, she is pale-appearing, she is pleasant, cooperative, answers questions appropriately. HENKS Head: Yes normal to inspection, Yes normocephalic and Yes atraumatic Ears: external ears normal General nose exam: Normal external nose present Face and sinus: Yes normal facial exam Mouth: Normal oral and palatal mucosa present Throat: Yes posterior oropharynx normal Eyes General: appearance normal, both eyes and all related structures Pupils: Equal, round and reactive pupils present Neck Neck: Yes normal visual inspection, Yes no lymphadenopathy, Yes trachea midline and Yes supple Chest Chest palpation & inspection: normal inspection of the chest and normal palpation of entire chest wall Resp Effort & Inspection: normal respiratory effort and able to speak in complete sentences Auscultation: clear to auscultation bilaterally Cardio Rate: regular rate Rhythm: regular rhythm Heart sounds: S1 normal heart sound present, S2 normal heart sound present and no murmurs GI Inspection: Yes normal to inspection Palpation (GI): Soft to palpation, Tenderness to palpation present (GI) in the LLQ ( Moderate) and no guarding Auscultation: normal bowel sounds General: Yes no CVA tenderness Back/Spine/Pelvis Back: no CVA tenderness Skin General skin exam: no rashes or lesions noted Neuro Cranial nerves: Yes CN's II-XII intact bilaterally and Yes Equal, round and reactive pupils present Cognition (Neuro): normal cognition Motor exam (neuro): 5/5 motor strength present throughout Extrem General: Yes normal to inspection Psych Appearance: grossly normal Speech and movement: Normal speech and movement present Affect: normal affect Attitude: cooperative Thought process: Normal thought process present Thought content: Normal thought content present Course Course Course Narrative: 72-year-old female hypertension, hyperlipidemia, diabetes, hypothyroidism, anemia, history of metastatic pancreatic cancer with peritoneal carcinomatosis, ascites, anxiety, depression recent admission from 07/28/2022 until 08/31/2022 secondary to pancytopenia from her metastatic pancreatic cancer. Patient has not been feeling well for 2-3 days with chills, rhinorrhea, slight cough, nausea, vomiting, decreased appetite, abdominal pain. Patient's initial blood pressure was low 87/48 otherwise vital signs were unremarkable. Patient's exam does reveal distended abdomen with left-sided tenderness which is most likely secondary to her pancreatic cancer. Patient's Point of care glucose is low at 48. I ordered a CBC, CMP, PT /INR, PTT, lipase, lactic acid, TSH with reflex T4, urinalysis, blood cultures x2. I will obtain a CT scan of the patient's chest and abdomen without IV contrast. Patient was ordered to get D50 25 g, D5 NS at 125 cc an hour. I also ordered stress dose steroids, hydrocortisone 100 mg IV. 1743:Laboratory evaluation: Lactic acid 6.2. WBC elevated 20,800 with 89% neutrophils. Sodium low 132, potassium high 5.5, CO2 low 21, BUN elevated 27, creatinine elevated 2.46 (BUN /creatinine above baseline ) Radiology evaluation: CT chest without contrast: IMPRESSION: Atelectasis or small infiltrates at both lung bases, right greater than left. Fleischner guidelines were followed. Dictated By:Sharon Covington MD CT scan abdomen pelvis without IV contrast: IMPRESSION: Large amount of ascites. Stable appearance to the pancreas. Question mild cirrhotic changes of the liver. Diverticulosis. Atherosclerotic disease. Bilateral renal cysts. Probable small gallstones. Fleischner guidelines were followed. Dictated By:Sharon Covington MDSigned By:<Electronically signed by Sharon Covington MD in [place]>10/09/22 1610 At this time, concerned the patient may have bilateral lower lobe pneumonia as the cause of her hand symptoms. Blood cultures and straight cath urinalysis will be obtained. after discussion with Dr. Moralez, the covering hospitalist, the patient will be treated with vancomycin and meropenem given the fact that we need to cover for healthcare acquired pneumonia and her multiple allergies including allergies to cephalosporins and penicillins. Patient will be admitted for further management. Medications Administered Generic Name Dose Route Start Last Admin Trade Name Freq PRN Reason Stop Dose Admin Dextrose/Sodium Chloride 1,000 mls @ 125 mls/hr 10/09/22 14:30 10/09/22 14:40 D5ns IVCONT 125 mls/hr .Q8H NUPUR Administration Discontinued Medications Generic Name Dose Route Start Last Admin Trade Name Freq PRN Reason Stop Dose Admin Dextrose 25 gm 10/09/22 14:20 10/09/22 14:40 Dextrose 50 % 25 Gm/50 Ml Syringe IVPUSH 10/09/22 14:21 25 gm ONCE ONE Administration Hydrocortisone Sodium Succinate 100 mg 10/09/22 14:41 10/09/22 15:31 Hydrocortisone Sod Succ/Pf 100 Mg Vial IVPUSH 10/09/22 14:42 100 mg ONCE ONE Administration Ondansetron HCl 4 mg 10/09/22 14:20 10/09/22 14:40 Ondansetron Hcl 4 Mg/2 Ml Vial IVPUSH 10/09/22 14:21 4 mg ONCE ONE Administration Ondansetron HCl 4 mg 10/09/22 16:27 10/09/22 16:44 Ondansetron Hcl 4 Mg/2 Ml Vial IVPUSH 10/09/22 16:28 4 mg ONCE ONE Administration Medical Decision Making Consult Healthcare Provider Management of the patient was discussed with: Hospitalist Lab Data MDM Lab Attestation statement: I reviewed the patient's lab results. Result Diagrams: 10/09/22 17:12 10/09/22 17:12 Labs: Lab Results 10/09/22 10/09/22 10/09/22 Range/Units 14:20 15:40 16:57 WBC (4.8-10.8) X10*3/uL RBC (4.20-5.50) X10*6/uL Hgb (12.0-16.0) g/dl Hct (37.0-47.0) % MCV (80.0-98.0) fL MCH (27.0-33.0) pg MCHC (31.0-35.0) g/dl RDW (11.0-16.0) % Plt Count (160-400) X10*3/uL MPV (9.4-12.3) fL Immature Gran % (Auto) (0.0-0.4) % Neut % (Auto) (45-73) % Lymph % (Auto) (20-40) % Tillman % (Auto) (2-11) % Eos % (Auto) (0-4) % Baso % (Auto) (0-2) % Lymph # (Auto) (1.2-4.9) X10*3/uL Tillman # (Auto) (0.1-1.2) X10*3/uL Eos # (Auto) (0.0-0.4) X10*3/uL Baso # (Auto) (0.0-0.2) X10*3/uL Abs Immat Gran (auto) (0.00-0.03) X10*3/uL Absolute Neuts (auto) (2.0-8.3) x10*3/uL Absolute Nucleated RBC (0.0-0.012) X10*3/uL Nucleated RBC % (auto) (0.0-0.2) /100WBC PT (10.0-13.1) SEC INR (0.9-1.1) APTT (26.0-36.4) SEC Sodium (135-145) mmol/L Potassium (3.3-5.1) mmol/L Chloride (96-108) mmol/L Carbon Dioxide (22-29) mmol/L Anion Gap (12-20) BUN (9-16) mg/dL Creatinine (0.5-1.4) mg/dL Estim Creat Clear Calc Estimated GFR POC Glucose 48 L* 218 H (60-115) mg/dL Random Glucose (60-115) mg/dL Lactic Acid (0.5-2.0) mmol/L Calcium (8.4-10.2) mg/dL Total Bilirubin (0.0-1.0) mg/dL AST (5-31) U/L ALT (0-31) U/L Alkaline Phosphatase (39-117) U/L Troponin I High Sens (<3.5-17.0) ng/L Total Protein (6.5-8.0) g/dL Albumin (3.5-5.0) g/dL Lipase (8-78) U/L TSH (0.32-4.0) uIU/mL Influenza Type A (PCR) NEGATIVE (Negative) Influenza Type B (PCR) NEGATIVE (Negative) RSV RNA Qual (PCR) NEGATIVE (Negative) SARS-CoV-2 RNA (RT-PCR) NEGATIVE (Negative) 10/09/22 10/09/22 10/09/22 Range/Units 17:12 17:12 17:12 WBC 20.8 H (4.8-10.8) X10*3/uL RBC 3.17 L (4.20-5.50) X10*6/uL Hgb 8.9 L (12.0-16.0) g/dl Hct 28.8 L D (37.0-47.0) % MCV 90.9 (80.0-98.0) fL MCH 28.1 (27.0-33.0) pg MCHC 30.9 L (31.0-35.0) g/dl RDW 15.1 (11.0-16.0) % Plt Count 426 H (160-400) X10*3/uL MPV 9.1 L (9.4-12.3) fL Immature Gran % (Auto) 0.7 H (0.0-0.4) % Neut % (Auto) 89.9 H (45-73) % Lymph % (Auto) 5.0 L (20-40) % Tillman % (Auto) 4.3 (2-11) % Eos % (Auto) 0.0 (0-4) % Baso % (Auto) 0.1 (0-2) % Lymph # (Auto) 1.0 L (1.2-4.9) X10*3/uL Tillman # (Auto) 0.9 (0.1-1.2) X10*3/uL Eos # (Auto) 0.0 (0.0-0.4) X10*3/uL Baso # (Auto) 0.0 (0.0-0.2) X10*3/uL Abs Immat Gran (auto) 0.15 H (0.00-0.03) X10*3/uL Absolute Neuts (auto) 18.7 H (2.0-8.3) x10*3/uL Absolute Nucleated RBC 0.000 (0.0-0.012) X10*3/uL Nucleated RBC % (auto) 0.0 (0.0-0.2) /100WBC PT 12.7 (10.0-13.1) SEC INR 1.1 (0.9-1.1) APTT 35.7 (26.0-36.4) SEC Sodium 132 L (135-145) mmol/L Potassium 5.5 H (3.3-5.1) mmol/L Chloride 98 (96-108) mmol/L Carbon Dioxide 21 L (22-29) mmol/L Anion Gap 19 (12-20) BUN 27 H D (9-16) mg/dL Creatinine 2.46 H (0.5-1.4) mg/dL Estim Creat Clear Calc 16.8 Estimated GFR 19 POC Glucose (60-115) mg/dL Random Glucose 188 H (60-115) mg/dL Lactic Acid (0.5-2.0) mmol/L Calcium 8.3 L (8.4-10.2) mg/dL Total Bilirubin 0.3 (0.0-1.0) mg/dL AST 16 D (5-31) U/L ALT 9 (0-31) U/L Alkaline Phosphatase 151 H D (39-117) U/L Troponin I High Sens (<3.5-17.0) ng/L Total Protein 4.8 L (6.5-8.0) g/dL Albumin 2.5 L D (3.5-5.0) g/dL Lipase 11 (8-78) U/L TSH 1.26 (0.32-4.0) uIU/mL Influenza Type A (PCR) (Negative) Influenza Type B (PCR) (Negative) RSV RNA Qual (PCR) (Negative) SARS-CoV-2 RNA (RT-PCR) (Negative) 10/09/22 10/09/22 Range/Units 17:12 17:13 WBC (4.8-10.8) X10*3/uL RBC (4.20-5.50) X10*6/uL Hgb (12.0-16.0) g/dl Hct (37.0-47.0) % MCV (80.0-98.0) fL MCH (27.0-33.0) pg MCHC (31.0-35.0) g/dl RDW (11.0-16.0) % Plt Count (160-400) X10*3/uL MPV (9.4-12.3) fL Immature Gran % (Auto) (0.0-0.4) % Neut % (Auto) (45-73) % Lymph % (Auto) (20-40) % Tillman % (Auto) (2-11) % Eos % (Auto) (0-4) % Baso % (Auto) (0-2) % Lymph # (Auto) (1.2-4.9) X10*3/uL Tillman # (Auto) (0.1-1.2) X10*3/uL Eos # (Auto) (0.0-0.4) X10*3/uL Baso # (Auto) (0.0-0.2) X10*3/uL Abs Immat Gran (auto) (0.00-0.03) X10*3/uL Absolute Neuts (auto) (2.0-8.3) x10*3/uL Absolute Nucleated RBC (0.0-0.012) X10*3/uL Nucleated RBC % (auto) (0.0-0.2) /100WBC PT (10.0-13.1) SEC INR (0.9-1.1) APTT (26.0-36.4) SEC Sodium (135-145) mmol/L Potassium (3.3-5.1) mmol/L Chloride (96-108) mmol/L Carbon Dioxide (22-29) mmol/L Anion Gap (12-20) BUN (9-16) mg/dL Creatinine (0.5-1.4) mg/dL Estim Creat Clear Calc Estimated GFR POC Glucose (60-115) mg/dL Random Glucose (60-115) mg/dL Lactic Acid 6.2 H* (0.5-2.0) mmol/L Calcium (8.4-10.2) mg/dL Total Bilirubin (0.0-1.0) mg/dL AST (5-31) U/L ALT (0-31) U/L Alkaline Phosphatase (39-117) U/L Troponin I High Sens 19.1 H D (<3.5-17.0) ng/L Total Protein (6.5-8.0) g/dL Albumin (3.5-5.0) g/dL Lipase (8-78) U/L TSH (0.32-4.0) uIU/mL Influenza Type A (PCR) (Negative) Influenza Type B (PCR) (Negative) RSV RNA Qual (PCR) (Negative) SARS-CoV-2 RNA (RT-PCR) (Negative) Critical Care Time Critical Care Time Total Critical Care Time: 60 Attestation: Critical Care: The patient was critically ill with a high probability of imminent or life threatening deterioration. I spent greater than 30 minutes of discontinuous time evaluating the patient,delivering critical care at the bedside, discussing and evaluating pertinent data with consultants. Critical care time does not include time spent performing separately billable procedures or teaching. Total time spent performing critical care was 60 minutes. Discharge Plan Discharge Patient Disposition: Admitted As Inpatient Prescriptions: No Action atenolol 25 mg tablet 0.5 tab PO DAILY prochlorperazine maleate [Compazine] 10 mg Tablet 10 mg PO Q8H PRN (Reason: Nausea And Vomiting) Qty: 30 4RF potassium chloride 10 mEq tablet extended release 2 tab PO DAILY lorazepam 0.5 mg tablet 0.5 mg PO BEDTIME PRN (Reason: Anxiety) levothyroxine 50 mcg tablet 1 tab PO DAILY@0600 metformin 500 mg tablet extended release 24 hr 1,000 mg PO BID multivitamin Tablet 1 tab PO DAILY acetaminophen-codeine 300-30 mg tablet 1 tab PO Q8H PRN (Reason: Pain) pantoprazole 40 mg tablet,delayed release (DR/EC) 1 tab PO DAILY@0630 latanoprost 0.005 % Drops 1 drp OPHTHALMIC (EYE) QPM simvastatin 40 mg Tablet 40 mg PO BEDTIME dexamethasone 4 mg Tablet See Rx Instructions .ROUTE .COMPLEX Rx Instructions: 1 tablet twice a day for 2 days post chemo alum-mag hydroxide-simeth [Laisha-Lanta] 400-400-40 mg/5 mL Suspension 5 ml PO Q6H PRN (Reason: Indigestion) fluticasone propionate 50 mcg/actuation [place],Suspension 1 spray INTRANASAL DAILY Rx Instructions: administer into each nostril furosemide [Lasix] 20 mg tablet 20 mg PO DAILY Qty: 30 0RF lisinopril 2.5 mg Tablet 2.5 mg PO DAILY melatonin 3 mg Tablet 3 mg PO BEDTIME PRN (Reason: Sleep) estradiol 0.5 mg Tablet 0.5 mg PO DAILY Rx Instructions: off 5 days; repeat cycle loperamide 2 mg Capsule 2 mg PO Q6H PRN (Reason: Diarrhea) Qty: 0 0RF ondansetron HCl 4 mg tablet 1 tab PO Q8H PRN (Reason: nausea) oxycodone 5 mg tablet 1 tab PO Q6H PRN (Reason: Moderate Pain (Scale Score 5-6))
[2022-10-09] MEDS: Dextrose 5 % and 0.9 % NaCl 1,000 ML 125 ML IVCONT ×2 (14:40→23:37)
[2022-10-09] MEDS: Dextrose 50 % 25 GM/50 ML SYRINGE IVPUSH (14:40)
[2022-10-09] MEDS: ondansetron HCL 4 MG/2 ML VIAL IVPUSH ×2 (14:40→16:44)
--- NOTE | 2022-10-09 15:03 | PC.NURSE ---
pt to CT.
[2022-10-09 15:05] VITALS: BP 86/44; PULSE 91; RESP 18
[2022-10-09 15:23] VITALS: BP 92/50; PULSE 97; RESP 20
[2022-10-09] MEDS: Hydrocortisone Sod Succ/PF 100 MG VIAL IVPUSH (15:31)
[2022-10-09 16:00] LABS: Glucose, Whole Blood 218 mg/dL (60-115)
--- NOTE | 2022-10-09 16:46 | PC.NURSE ---
pt nauseous, vomiting, incontinent of urine, provider notified, medicated per provider order.
--- NOTE | 2022-10-09 17:13 | PC.NURSE ---
port accessed via sterile technique, pt tolerated well, labs drawn.
[2022-10-09 17:21] LABS: MANUAL DIFF FLAG NO
[2022-10-09 17:23] LABS: Basophils Percent Auto 0.1 % (0-2); Hematocrit 28.8 % (37.0-47.0); Hemoglobin 8.9 g/dl (12.0-16.0); Imm Gran Abs Auto 0.15 X10*3/uL (0.00-0.03); Imm Gran Pct Auto 0.7 % (0.0-0.4); Mean Corpuscular HGB Conc 30.9 g/dl (31.0-35.0); Mean Corpuscular Hemoglobin 28.1 pg (27.0-33.0); Mean Corpuscular Volume 90.9 fL (80.0-98.0); Mean Platelet Volume 9.1 fL (9.4-12.3); Monocytes Absolute Auto 0.9 X10*3/uL (0.1-1.2); Monocytes Percent Auto 4.3 % (2-11); Neutrophils Absolute Auto 18.7 x10*3/uL (2.0-8.3); Neutrophils Percent Auto 89.9 % (45-73); Platelet Count 426 X10*3/uL (160-400); Red Blood Count 3.17 X10*6/uL (4.20-5.50); Red Cell Distribution Width 15.1 % (11.0-16.0); White Blood Count 20.8 X10*3/uL (4.8-10.8)
[2022-10-09 17:33] LABS: INTERNATIONAL NORM RATIO 1.1 (0.9-1.1); Prothrombin Time 12.7 SEC (10.0-13.1)
[2022-10-09 17:36] LABS: Partial Thromboplastin Time 35.7 SEC (26.0-36.4)
[2022-10-09 17:41] LABS: Influenza A PCR NEGATIVE (Negative); Influenza B PCR NEGATIVE (Negative); Resp Syncy Virus RNA Qual PCR NEGATIVE (Negative); SARS COV2 PCR INHOUSE NEGATIVE (Negative)
[2022-10-09 17:42] LABS: Lactic Acid 6.2 mmol/L (0.5-2.0)
[2022-10-09 17:46] LABS: Alanine Aminotransferase 9 U/L (0-31); Albumin Level 2.5 g/dL (3.5-5.0); Alkaline Phosphatase 151 U/L (39-117); Anion Gap 19 (12-20); Aspartate Amino Transferase 16 U/L (5-31); Bilirubin Total 0.3 mg/dL (0.0-1.0); Blood Urea Nitrogen 27 mg/dL (9-16); Calcium 8.3 mg/dL (8.4-10.2); Carbon Dioxide 21 mmol/L (22-29); Chloride 98 mmol/L (96-108); Creatinine Clr Calc Pharmacy 16.8; Estimated Glomerular Filt Rate 19; Glucose Random 188 mg/dL (60-115); Lipase 11 U/L (8-78); Potassium 5.5 mmol/L (3.3-5.1); Sodium 132 mmol/L (135-145); Total Protein 4.8 g/dL (6.5-8.0)
[2022-10-09 17:52] LABS: Troponin-I High Sensitivity 19.1 ng/L (<3.5-17.0)
[2022-10-09 18:06] LABS: TSH reflex Free T4 1.26 uIU/mL (0.32-4.0)
--- NOTE | 2022-10-09 18:38 | PM.IMHP ---
History of Present Illness Date of Service: 10/09/22 Chief Complaint: Bilateral lower lobe pneumonia 72-year-old female with a past medical history of hypertension, hyperlipidemia, diabetes, hypothyroidism, anemia, history of metastatic pancreatic cancer with peritoneal carcinomatosis, ascites, anxiety, depression ? [facility] for pancytopnea secondary to metastatic pancreatic cancer requiring granix and? blood transfusion during her admission she tested COVID positive on 08/10/2022 and was asymptomatic without hypoxia. According the patient she was living at home your prior to being hospitalized and since that time has been [place] [facility].? Patient reports that she has not been feeling well times 2-3 days.? She states she has had nausea and has had several episodes of vomiting.? She has been feeling very weak and tired.? She had chills but no fever.? She had rhinorrhea, slight cough which is nonproductive left-sided abdominal pain, no diarrhea.? She states that the left-sided abdominal pain is been constant for weeks, but seems worse over the past several days. today the patient was noted to have a low blood sugars.? EMS reported that the patient's blood sugar was 19, she was given D50 in repeat Glucose by the paramedics was 80.? ER course Admitted through ER; found to be hypotensive on arrival and hypoglycemic. She was started on D5 normal saline; sugars responded appropriately. CT of the chest demonstrated likely bilateral small infiltrates right greater than left. CT the abdomen demonstrated moderate ascites and changes consistent with pancreatic CA. she was pancultured and given vancomycin and meropenem. Will be Review of Systems Review of Systems: Denies chest pain Denies shortness of breath Denies nausea vomiting diarrhea Denies fever chills [facility] Medical History Acute sinusitis Anemia Ascites Carcinomatosis peritonei Cardiac arrhythmia Chest pain Diabetes Dysuria Dysuria Flank pain VREO (generalized anxiety disorder) GERD (gastroesophageal reflux disease) HLD (hyperlipidemia) HTN (hypertension) Hypothyroidism Left knee pain Leg edema Metastasis from pancreatic cancer Pancreatic adenocarcinoma Post-menopausal Recurrent UTI Rib pain on right side Sinusitis Urinary frequency Urinary tract infection UTI (urinary tract infection) Yeast infection of the vagina Family History Father CVD (cardiovascular disease) Mother No problems noted. Surgical History H/O: hysterectomy History of cardiac radiofrequency ablation Social History Household Members: Spouse Housing: House Do you presently have visiting nurse or other home services: No Alcohol intake: never Patient Tobacco Use Status: Former Tobacco user Quit Date: 40 years ago Tobacco use type: Cigarette e-Cigarette/Vaping Use: Former Use Second Hand Smoke Exposure: Yes Advance Directives: Yes Advance Directives on File: Yes Advance Directives Date on File: 06/21/22 service: No Current occupational status: retired Current occupation: rt handed Cognitive needs: No Hearing needs: No Vision needs: Yes Meds Allergies Allergy/AdvReac Type Severity Reaction Status Date / Time amoxicillin [From Augmentin] Allergy Intermediate rash Verified 08/22/22 11:11 cefuroxime [From CEFTIN] Allergy Intermediate RASH Verified 08/22/22 11:11 clavulanic acid Allergy Intermediate rash Verified 08/22/22 11:11 [From Augmentin] doxycycline [DOXYCYCLINE] Allergy Intermediate HIVES Verified 08/22/22 11:11 Sulfa (Sulfonamide Allergy Intermediate unknown Verified 08/22/22 11:11 Antibiotics) Active Medications: Current Medications Dextrose/Sodium Chloride (D5ns) 1,000 mls @ 125 mls/hr IVCONT .Q8H [facility] Last Admin: 10/09/22 14:40 Dose: 125 mls/hr Sodium Chloride (Ns) 1,866 mls @ 1,866 mls/hr 30 ml/kg infuse over 1 hr (1866 ml) IV .Q1H STA Stop: 10/09/22 18:47 Last Admin: 10/09/22 18:28 Dose: 1,866 mls/hr Vancomycin HCl 1,500 mg/ (Sodium Chloride) 500 mls @ 333.333 mls/hr IV ONCE ONE Stop: 10/09/22 19:39 Meropenem 1 gm/ Sodium (Chloride) 100 mls @ 200 mls/hr IV ONCE ONE Stop: 10/09/22 18:39 Meropenem 1 gm/ Sodium (Chloride) 100 mls @ 200 mls/hr IV Q8H [facility] Pharmacy Consult (Consult Rx Perform Med Rec) 1 each MISCELLANE ONCE PRN PRN Reason: Consult order Pharmacy Consult (Consult Rx Vancomycin Dosing) 1 each MISCELLANE DAILY PRN PRN Reason: Consult order Home Medications Medication Instructions Recorded Confirmed Last Taken Type levothyroxine 50 mcg tablet 1 tab PO DAILY@0600 08/10/22 09/26/22 08/27/22 History lorazepam 0.5 mg tablet 0.5 mg PO BEDTIME PRN Anxiety 08/10/22 09/26/22 Unknown History metformin 500 mg tablet,extended 1,000 mg PO BID 08/10/22 09/26/22 08/27/22 History release 24 hr potassium chloride 10 mEq 2 tab PO DAILY 08/10/22 09/26/22 Unknown History tablet,extended release acetaminophen 300 mg-codeine 30 mg 1 tab PO Q8H PRN Pain 08/13/22 09/26/22 Unknown History tablet aluminum-mag hydroxide-simethicone 5 ml PO Q6H PRN Indigestion 08/13/22 09/26/22 Unknown History 400 mg-400 mg-40 mg/5 mL oral susp (Laisha-Lanta) dexamethasone 4 mg tablet See Rx Instructions .Route .COMPLEX 08/13/22 09/26/22 Unknown History fluticasone propionate 50 1 spray intranasal DAILY 08/13/22 09/26/22 Unknown History mcg/actuation nasal spray,suspension latanoprost 0.005 % eye drops 1 drp ophthalmic (eye) QPM 08/13/22 09/26/22 Unknown History multivitamin 1 tab PO DAILY 08/13/22 09/26/22 Unknown History pantoprazole 40 mg tablet,delayed 1 tab PO DAILY@0630 08/13/22 09/26/22 08/27/22 History release simvastatin 40 mg tablet 40 mg PO BEDTIME 08/13/22 09/26/22 08/27/22 History atenolol 25 mg tablet 0.5 tab PO DAILY 08/22/22 09/26/22 08/27/22 History estradiol 0.5 mg tablet 0.5 mg PO DAILY 08/28/22 09/26/22 Unknown History lisinopril 2.5 mg tablet 2.5 mg PO DAILY 08/28/22 09/26/22 08/27/22 History melatonin 3 mg tablet 3 mg PO BEDTIME PRN Sleep 08/28/22 09/26/22 Unknown History ondansetron HCl 4 mg tablet 1 tab PO Q8H PRN nausea 09/30/22 09/30/22 Unknown History oxycodone 5 mg tablet 1 tab PO Q6H PRN Moderate Pain 09/30/22 Unknown History (Scale Score 5-6) Physical Exam Vital Signs and Narrative: Vital Signs: Last Vital Signs Temp 97.7 F 10/09/22 14:12 Pulse 97 10/09/22 15:23 Resp 20 10/09/22 15:23 BP 92/50 L 10/09/22 15:23 BMI result Body Mass Index 24.3 Const: Other: Awake alert oriented x3 no acute distress HEENT: Other: Mucous membranes dry Resp: Other: Faint crackles bilateral bases otherwise clear to auscultation Cardio: Other: No S4; positive S1-S2; no S3 murmurs rubs or gallops GI: Other: Soft nontender nondistended normoactive bowel sounds Skin: Other: Without significant lesions or rashes Neuro: Other: Cranial nerves 2-12 grossly intact as tested. Motor is 5/5 all extremities. Sensation is intact. Cognition appropriate Extrem: Other: Radial and pedal pulses present. No edema bilaterally Results Labs CBC and Chem 7: 10/09/22 17:12 10/09/22 17:12 Labs: Laboratory Results - last 24 hr 10/09/22 10/09/22 10/09/22 14:20 15:40 16:57 MCV MCH MCHC RDW Plt Count MPV Immature Gran % (Auto) Neut % (Auto) Lymph % (Auto) [place] % (Auto) Eos % (Auto) Baso % (Auto) Lymph # (Auto) [place] # (Auto) Eos # (Auto) Baso # (Auto) Abs Immat Gran (auto) Absolute Neuts (auto) Absolute Nucleated RBC Nucleated RBC % (auto) PT INR APTT Anion Gap Estim Creat Clear Calc Estimated GFR POC Glucose 48 L* 218 H Random Glucose Lactic Acid Calcium Total Bilirubin AST ALT Alkaline Phosphatase Troponin I High Sens Total Protein Albumin Lipase TSH Influenza Type A (PCR) NEGATIVE Influenza Type B (PCR) NEGATIVE RSV RNA Qual (PCR) NEGATIVE SARS-CoV-2 RNA (RT-PCR) NEGATIVE 10/09/22 10/09/22 10/09/22 17:12 17:12 17:12 MCV 90.9 MCH 28.1 MCHC 30.9 L RDW 15.1 Plt Count 426 H MPV 9.1 L Immature Gran % (Auto) 0.7 H Neut % (Auto) 89.9 H Lymph % (Auto) 5.0 L [place] % (Auto) 4.3 Eos % (Auto) 0.0 Baso % (Auto) 0.1 Lymph # (Auto) 1.0 L [place] # (Auto) 0.9 Eos # (Auto) 0.0 Baso # (Auto) 0.0 Abs Immat Gran (auto) 0.15 H Absolute Neuts (auto) 18.7 H Absolute Nucleated RBC 0.000 Nucleated RBC % (auto) 0.0 PT 12.7 INR 1.1 APTT 35.7 Anion Gap 19 Estim Creat Clear Calc 16.8 Estimated GFR 19 POC Glucose Random Glucose 188 H Lactic Acid Calcium 8.3 L Total Bilirubin 0.3 AST 16 D ALT 9 Alkaline Phosphatase 151 H D Troponin I High Sens Total Protein 4.8 L Albumin 2.5 L D Lipase 11 TSH 1.26 Influenza Type A (PCR) Influenza Type B (PCR) RSV RNA Qual (PCR) SARS-CoV-2 RNA (RT-PCR) 10/09/22 10/09/22 17:12 17:13 MCV MCH MCHC RDW Plt Count MPV Immature Gran % (Auto) Neut % (Auto) Lymph % (Auto) [place] % (Auto) Eos % (Auto) Baso % (Auto) Lymph # (Auto) [place] # (Auto) Eos # (Auto) Baso # (Auto) Abs Immat Gran (auto) Absolute Neuts (auto) Absolute Nucleated RBC Nucleated RBC % (auto) PT INR APTT Anion Gap Estim Creat Clear Calc Estimated GFR POC Glucose Random Glucose Lactic Acid 6.2 H* Calcium Total Bilirubin AST ALT Alkaline Phosphatase Troponin I High Sens 19.1 H D Total Protein Albumin Lipase TSH Influenza Type A (PCR) Influenza Type B (PCR) RSV RNA Qual (PCR) SARS-CoV-2 RNA (RT-PCR) Imaging Radiologist's Impressions: Impressions Chest X-Ray 10/09/22 14:42 IMPRESSION: No evidence for acute disease in the chest. Abdomen/Pelvis CT 10/09/22 15:22 IMPRESSION: Large amount of ascites. Stable appearance to the pancreas. Question mild cirrhotic changes of the liver. Diverticulosis. Atherosclerotic disease. Bilateral renal cysts. Probable small gallstones. Fleischner guidelines were followed. Chest CT 10/09/22 15:22 IMPRESSION: Atelectasis or small infiltrates at both lung bases, right greater than left. Fleischner guidelines were followed. Assessment and Plan (1) Sepsis: Status: Acute (2) Pneumonia: Qualifiers: Laterality: bilateral Lung location: lower lobe of lung Pneumonia type: due to unspecified organism Qualified Code(s): J18.9 - Pneumonia, unspecified organism Status: Acute (3) Pancreatic adenocarcinoma: Status: Chronic (4) Acute hypotension: Status: Acute (5) Hypoglycemia: Status: Acute Plan 72-year-old female with a past medical history of hypertension, hyperlipidemia, diabetes, hypothyroidism, anemia, history of metastatic pancreatic cancer with peritoneal carcinomatosis, ascites, anxiety, depression ? [facility] for pancytopnea secondary to metastatic pancreatic cancer requiring granix and? blood transfusion during her admission she tested COVID positive on 08/10/2022 and was asymptomatic without hypoxia. Admitted today with 2-3 days of feeling ?unwell?. White count [address] lactate [address] consistent with bilateral pneumonia 1. Sepsis secondary to bilateral pneumonia -sepsis focused exam done -blood and urine cultures sent -vancomycin/meropenem initiated to cover HAP (renally dosed) -ID consult in a.m. -repeat lactate pending 2. Metastatic pancreatic cancer with peritoneal carcinomatosis ascites by CT scan -follows with Dr. Alston as outpatient -await ID input prior to diagnostic paracentesis 3. Hypertension -relative hypotension prior to fluids -follow-up response to volume resuscitation -hold antihypertensive at this time add back when appropriate 4. Chronic steroid use (question adrenal insufficiency) -stress dose steroid given in the ER -follow response to therapies and does as appropriate 5. Hypoglycemia (history of DM 2) -diabetic diet -lispro correctional scale...follow POC's -adjust therapies as appropriate Full code Heparin subQ Patient will require inpatient stay of at least 2 midnights for treatment of bilateral pneumonia and volume resuscitation. This cannot be achieved and a lesser acute setting Time Spent With Patient Time: Total time managing care of this patient today ____ minutes. Quality Stroke Does the patient have a stroke diagnosis?: No VTE Prior VTE?: No VTE Risk Level:: Medical - moderate - high VTE Device Contraindication: Treatment Not Indicated VTE Drug Contraindication: N/A - Med Ordered
[2022-10-09 19:18] LABS: Reflex Lactate? Lactic Acid Added
--- NOTE | 2022-10-09 19:28 | PHA.MEDREC ---
Pharmacy Consult ? Medication Reconciliation Pharmacy has completed the medication reconciliation. Pt [facility]
[2022-10-09] MEDS: vancomycin HCL 1,500 MG in 0.9 % Sodium Chloride 500 ML 333.33 MG IV (20:30)
--- NOTE | 2022-10-09 20:36 | PC.NURSE ---
16F urethral marquis placed, medicated per provider order, remaining meds pending IV access due to incompatibility.
--- NOTE | 2022-10-09 20:48 | PHA.PROG ---
Admission Date/Time: Indication: RESP INFECTION Weight in k.2 kg Serum Creatinine - Last 168 Hours 10/09/22 17:12 Creatinine 2.46 H Estimated CrCl and GFR - Last 168 Hours 10/09/22 17:12 Estim Creat Clear Calc 16.8 Estimated GFR 19 Vancomycin Loading Dose: 1500 Current Vancomycin Dosing Regimen: 500 Q 24 Vancomycin Monitoring using AUC goal of 400 - 600 range with trough as surrogate marker: 458 Date and Time for next Vancomycin Level to be drawn: 10/11 @ 1900 Pharmacist Comments on Vancomycin Plan: Vancomycin dosing will take advantage of [employer] as a clinical decision support tool that uses Bayesian modeling to calculate individual patient's pharmacokinetic parameters and forecast the patient's drug concentration time course with the target goal AUC 24 range of 400 - 600 mg/L/hr.
[2022-10-09 20:49] VITALS: BP 78/47; PULSE 93; RESP 18; TEMP 36.4
[2022-10-09] MEDS: Heparin Sodium,Porcine 5,000 UNIT/ML VIAL 5000 UNIT SUBCUT (20:59)
[2022-10-09] MEDS: Metoclopramide HCl 10 MG/2 ML VIAL IVPUSH (22:13)
[2022-10-09] MEDS: Albumin Human 25 % 100 ML IV (22:23)
[2022-10-09 22:28] VITALS: BP 111/76; PULSE 83; RESP 16; O2SAT 98
[2022-10-10] VITALS (32 sets, daily range): BP systolic 61–187; BP diastolic 35–101; PULSE 71–124; RESP 8–22; TEMP 36.6–37.6; O2SAT 91–99; BMI 24.3
[2022-10-10 00:57] LABS: ~Lactic Acid-LAB USE ONLY 7.3 mmol/L (0.5-2.0)
[2022-10-10] MEDS: Lactated Ringers 1,000 ML 999 ML IV (01:12)
--- NOTE | 2022-10-10 01:29 | PC.NURSE ---
Hold fluids per MD orders. Pending Albumin from nursing supervisor rework. No Albumin available in the pyxis.
[2022-10-10 01:34] LABS: MANUAL DIFF FLAG NO
[2022-10-10 01:35] LABS: Basophils Percent Auto 0.1 % (0-2); Imm Gran Abs Auto 0.14 X10*3/uL (0.00-0.03); Imm Gran Pct Auto 0.9 % (0.0-0.4); Lymphocytes Percent Auto 6.7 % (20-40); Mean Corpuscular HGB Conc 30.8 g/dl (31.0-35.0); Mean Corpuscular Hemoglobin 28.1 pg (27.0-33.0); Mean Corpuscular Volume 91.2 fL (80.0-98.0); Mean Platelet Volume 9.2 fL (9.4-12.3); Monocytes Absolute Auto 0.5 X10*3/uL (0.1-1.2); Monocytes Percent Auto 3.6 % (2-11); Neutrophils Absolute Auto 13.5 x10*3/uL (2.0-8.3); Neutrophils Percent Auto 88.7 % (45-73); Platelet Count 248 X10*3/uL (160-400); Red Blood Count 2.17 X10*6/uL (4.20-5.50); Red Cell Distribution Width 15.1 % (11.0-16.0); White Blood Count 15.2 X10*3/uL (4.8-10.8)
[2022-10-10 01:42] LABS: Hematocrit 19.8 % (37.0-47.0); Hemoglobin 6.1 g/dl (12.0-16.0)
--- NOTE | 2022-10-10 01:45 | PM.EVENT ---
Event Note Date of Service: 10/10/22 Event Note: pt bp dropping and is now severely hypotensive. receiving albumin but she had already received sepsis fluid. pt started on levophed in ED. cbc, bmp, lactic acid, rpt. albumin ordered. paracentesis being performed. pt being transferred to icu for septic shock and hypotension requiring pessors. ICU provider notified Time Spent With Patient Time: Total time managing care of this patient today ____ minutes.
--- NOTE | 2022-10-10 02:05 | PC.NURSE ---
pt a&o, no chest pain, no increase sob . Notice pt low blood pressure . Notified JUDITH Caceres, Called Dr. Whitehead notified of low blood pressure and distended abd. Plan is to give levophed and unit of blood.
--- NOTE | 2022-10-10 02:15 | PC.NURSE ---
Called pharmacy and verified the mixing of Levophed.
[2022-10-10 02:28] LABS: MANUAL DIFF FLAG NO
[2022-10-10 02:30] LABS: Basophils Percent Auto 0.1 % (0-2); Imm Gran Abs Auto 0.08 X10*3/uL (0.00-0.03); Imm Gran Pct Auto 0.5 % (0.0-0.4); Lymphocytes Absolute Auto 1.2 X10*3/uL (1.2-4.9); Lymphocytes Percent Auto 7.2 % (20-40); Mean Corpuscular HGB Conc 30.5 g/dl (31.0-35.0); Mean Corpuscular Hemoglobin 28.2 pg (27.0-33.0); Mean Corpuscular Volume 92.4 fL (80.0-98.0); Mean Platelet Volume 9.1 fL (9.4-12.3); Monocytes Absolute Auto 0.7 X10*3/uL (0.1-1.2); Neutrophils Absolute Auto 14.8 x10*3/uL (2.0-8.3); Neutrophils Percent Auto 88.2 % (45-73); Platelet Count 253 X10*3/uL (160-400); Red Blood Count 2.38 X10*6/uL (4.20-5.50); Red Cell Distribution Width 15.2 % (11.0-16.0); White Blood Count 16.8 X10*3/uL (4.8-10.8)
[2022-10-10 02:33] LABS: Hemoglobin 6.7 g/dl (12.0-16.0)
[2022-10-10 02:40] LABS: Reflex Lactate? 2 Y
[2022-10-10 02:41] LABS: Anion Gap 18 (12-20); Blood Urea Nitrogen 24 mg/dL (9-16); Calcium 8.2 mg/dL (8.4-10.2); Carbon Dioxide 17 mmol/L (22-29); Chloride 104 mmol/L (96-108); Creatinine Clr Calc Pharmacy 18.7; Estimated Glomerular Filt Rate 22; Glucose Random 163 mg/dL (60-115); Potassium 5.6 mmol/L (3.3-5.1); Sodium 133 mmol/L (135-145)
[2022-10-10] MEDS: Albumin Human 25 % 50 ML 100 ML IV ×4 (02:42→06:25)
--- NOTE | 2022-10-10 03:10 | PC.NURSE ---
ICu provider at the bedside. Levophed titrated to 0.2mcg/kg/hr as ordered by provider. Current BP 61/35, MAP 43, HR 96, RR 16.
--- NOTE | 2022-10-10 03:18 | PC.NURSE ---
bryan care completed and barrier cream applied.
--- NOTE | 2022-10-10 03:31 | PC.NURSE ---
RN to RN report given to JUDITH Estrada. Pt being transferred to the ICU room 254. Pt aware of plan of care.
[2022-10-10 03:38] LABS: Procalcitonin 0.58 ng/mL
--- NOTE | 2022-10-10 03:57 | W.PM.CCCN ---
History of Present Illness Data of Consult Service Date: 10/10/22 Requesting physician: Bucky Whitehead Primary Care Provider: Sammy Cordova PA-C Reason for consult: Septic shock and hypotension requiring pessors Chief Complaint:? Hypotension, hypoglycemia The patient is a 72-year-old female with a past medical history of hypertension, hyperlipidemia, diabetes, hypothyroidism, anemia, history of metastatic pancreatic cancer with peritoneal carcinomatosis, ascites, anxiety and depression. She first started experiencing abdominal fullness and discomfort in April of this year, and had a therapeutic and diagnostic paracentesis on 06/08/2022 which showed adenocarcinoma consistent with pancreatic primary. She was started on FOLFIRINOX regimen with 75% doses on 06/27/2022. ? She has had several admissions to the hospital for recurrent abdominal distension as well as renal insufficiency.? She was treated with IV albumin, diuretics and therapeutic paracentesis.? She was last admitted here at [facility] from 07/28/2022 until 08/31/2022? for pancytopenia secondary to metastatic pancreatic cancer requiring granix and? blood transfusion during her admission. She tested COVID positive on 08/10/2022 and was asymptomatic without hypoxia. She was discharged to [facility] where she has been ever since. Yesterday, [facility]. The patient reports that she has not been feeling well for 2-3 days.? She has had nausea and several episodes of vomiting, has been feeling very weak and tired and has had chills but no fever.? She had rhinorrhea, a slight non-productive cough and left-sided abdominal pain that has been constant for weeks, but seems worse over the past several days. No diarrhea. Yesterday she was noted to have a low blood sugars.? EMS reported that the patient's blood sugar was 19, she was given D50. Repeat Glucose by the paramedics was 80.? In the ED, found to be hypotensive on arrival and hypoglycemic.? She was started on D5 normal saline; sugars responded appropriately.? CT of the chest demonstrated likely bilateral small infiltrates right greater than left.? CT the abdomen demonstrated moderate ascites and changes consistent with pancreatic CA. She was jackson-cultured and given vancomycin and meropenem and was admitted to medicine. Early this morning, she became severely hypotensive despite albumin and fluid resuscitation given for sepsis. She was started on Levophed and admitted to the ICU.? A CVC was placed in the left IJ.? Repeat Laboratory data significant for WBC 16.8,? hemoglobin 6.7, platelet 253 (down from 426 on arrival to ED) sodium 133, potassium 5.6, BUN 24,, creatinine 2.2 (baseline 15/0.7), Glu 163, lactic acid 5.5 (down from 7.3), AST 16, ALT 9, alk-phos 151, albumin 2.5. Imaging:? Abd/Pelvis CT: Large amount of ascites. Chest CT: Atelectasis or small infiltrates in both lower lobes, right greater than left. Review of Systems Review of Systems: Yes all other systems are reviewed and are negative Constitutional: Constitutional: Reports as per [facility] Past Medical History Medical History Acute sinusitis Anemia Ascites Carcinomatosis peritonei Cardiac arrhythmia Chest pain Diabetes Dysuria Dysuria Flank pain VERO (generalized anxiety disorder) GERD (gastroesophageal reflux disease) HLD (hyperlipidemia) HTN (hypertension) Hypothyroidism Left knee pain Leg edema Metastasis from pancreatic cancer Pancreatic adenocarcinoma Post-menopausal Recurrent UTI Rib pain on right side Sinusitis Urinary frequency Urinary tract infection UTI (urinary tract infection) Yeast infection of the vagina Functional capacity: uses cane/walker Family History Family History Father CVD (cardiovascular disease) Mother No problems noted. Surgical History Surgical History H/O: hysterectomy History of cardiac radiofrequency ablation Social History Social History Household Members: Spouse Housing: Skilled Nursing Do you presently have visiting nurse or other home services: No (lives in nuring home) Alcohol intake: never Patient Tobacco Use Status: Former Tobacco user Quit Date: 40 years ago Tobacco use type: Cigarette e-Cigarette/Vaping Use: Former Use Second Hand Smoke Exposure: Yes Use of substances other than those prescribed or required for medical reasons: No Have you been hit, kicked, punched, or otherwise hurt by someone within the past year? If so, by whom?: No Do you feel safe in your current relationship?: Yes Is there a partner from a previous relationship who is making you feel unsafe now?: No Are you made to feel afraid or neglected: No Advance Directives: Yes Advance Directives on File: Yes Advance Directives Date on File: 06/21/22 Do you have thoughts of harming others: None Do you have a plan to hurt others: No Plan Recently lost weight without trying: Unsure How much weight loss: Unsure Eating poorly because of decreased appetite: Yes Nutrition screen score: 5 Nutrition Risks: Emaciation/Cachexia Patient : No : No Poor oral hygiene: No service: No Current occupational status: retired Current occupation: rt handed Cognitive needs: No Hearing needs: No Vision needs: Yes Meds Allergies Allergy/AdvReac Type Severity Reaction Status Date / Time amoxicillin [From Augmentin] Allergy Intermediate rash Verified 08/22/22 11:11 cefuroxime [From CEFTIN] Allergy Intermediate RASH Verified 08/22/22 11:11 clavulanic acid Allergy Intermediate rash Verified 08/22/22 11:11 [From Augmentin] doxycycline [DOXYCYCLINE] Allergy Intermediate HIVES Verified 08/22/22 11:11 Sulfa (Sulfonamide Allergy Intermediate unknown Verified 08/22/22 11:11 Antibiotics) Active Medications: Current Medications Dextrose (Dextrose 50 % 25 Gm/50 Ml Syringe) 12.5 gm IVPUSH ONCE ONE Stop: 10/10/22 03:54 Meropenem 500 mg/ Sodium (Chloride) 50 mls @ 100 mls/hr IV Q12H [facility] Last Infusion: 10/09/22 22:23 Dose: Infused Vancomycin HCl 500 mg/ Sodium (Chloride) 110 mls @ 110 mls/hr IV Q24H [facility] Norepinephrine Bitartrate 32 (mg/ Sodium Chloride) 250 mls @ 0 mls/hr IVCONT .Q0M [facility]; Protocol Last Admin: 10/10/22 02:43 Dose: 0.05 mcg/kg/min, 1.46 mls/hr Albumin Human (Kedbumin 25 %) 50 mls @ 100 mls/hr IV Q1H [facility] Stop: 10/10/22 05:44 Last Admin: 10/10/22 02:42 Dose: 100 mls/hr Insulin Human Regular (Insulin Regular, Human 100 Unit/Ml 3 Ml Vial) 5 unit IVPUSH ONCE ONE Stop: 10/10/22 03:53 Pharmacy Consult (Consult Rx Perform Med Rec) 1 each MISCELLANE ONCE PRN PRN Reason: Consult order Pharmacy Consult (Consult Rx Vancomycin Dosing) 1 each MISCELLANE DAILY PRN PRN Reason: Consult order Sodium Bicarbonate (Sodium Bicarbonate 8.4% 50 Meq/50 Ml Syringe) 100 meq IVPUSH ONCE ONE Stop: 10/10/22 03:54 Home Medications Medication Instructions Recorded Confirmed Last Taken Type levothyroxine 50 mcg tablet 1 tab PO DAILY@0600 08/10/22 10/09/22 08/27/22 History lorazepam 0.5 mg tablet 0.5 mg PO BEDTIME PRN Anxiety 08/10/22 10/09/22 Unknown History metformin 500 mg tablet,extended 1,000 mg PO BID 08/10/22 10/09/22 08/27/22 History release 24 hr potassium chloride 10 mEq 2 tab PO DAILY 08/10/22 10/09/22 Unknown History tablet,extended release acetaminophen 300 mg-codeine 30 mg 1 tab PO Q8H PRN Pain 08/13/22 10/09/22 Unknown History tablet aluminum-mag hydroxide-simethicone 5 ml PO Q6H PRN Indigestion 08/13/22 10/09/22 Unknown History 400 mg-400 mg-40 mg/5 mL oral susp (Laisha-Lanta) dexamethasone 4 mg tablet See Rx Instructions .Route .COMPLEX 08/13/22 09/26/22 Unknown History fluticasone propionate 50 1 spray intranasal DAILY 08/13/22 10/09/22 Unknown History mcg/actuation nasal spray,suspension latanoprost 0.005 % eye drops 1 drp ophthalmic (eye) QPM 08/13/22 10/09/22 Unknown History multivitamin 1 tab PO DAILY 08/13/22 10/09/22 Unknown History pantoprazole 40 mg tablet,delayed 1 tab PO DAILY@0630 08/13/22 10/09/22 08/27/22 History release simvastatin 40 mg tablet 40 mg PO BEDTIME 08/13/22 10/09/22 08/27/22 History atenolol 25 mg tablet 0.5 tab PO DAILY 08/22/22 10/09/22 08/27/22 History estradiol 0.5 mg tablet 0.5 mg PO DAILY 08/28/22 10/09/22 Unknown History melatonin 3 mg tablet 3 mg PO BEDTIME PRN Sleep 08/28/22 10/09/22 Unknown History ondansetron HCl 4 mg tablet 1 tab PO Q8H PRN nausea 09/30/22 10/09/22 Unknown History oxycodone 5 mg tablet 1 tab PO Q6H PRN Moderate Pain 09/30/22 10/09/22 Unknown History (Scale Score 5-6) magnesium oxide 400 mg PO DAILY 10/09/22 10/09/22 Unknown History Physical Exam Vital Signs: Vital Signs: Last Vital Signs Temp 99.6 F 10/10/22 02:00 Pulse 93 10/10/22 03:11 Resp 16 10/10/22 03:11 BP 61/35 L 10/10/22 03:11 Pulse Ox 97 10/10/22 00:56 O2 Del Method 10/10/22 03:11 O2 Flow Rate 5 10/10/22 03:11 BMI result Body Mass Index 24.3 Const: General: cooperative, no acute distress and alert Orientation/consciousness: patient oriented x3 (answering appropriately.) HEENT: Head: Yes normocephalic and Yes atraumatic General nose exam: Normal external nose present (Nares patent, septum midline, sinuses nontender bilaterally.) Mouth: Normal oral and palatal mucosa present (No thrush, tongue in midline, mucosa moist.) Throat: Yes other (No erythema, no exudate.) Neck: Neck: Yes supple (no thyromegaly, trachea midline.) Carotids: normal carotid upstroke Resp: Effort & Inspection: normal respiratory effort and Actively coughing Quality: dry Auscultation: crackles bilateral at the base Cardio: Jugular venous distension: no JVD Rate: regular rate Rhythm: regular rhythm Heart sounds: no gallops, no murmurs and no rubs Peripheral pulses: Peripheral pulses 2+ throughout GI: Inspection: Yes caput medusae present (Right upper quadrant) Palpation (GI): Soft to palpation, Firmness to palpation present (GI), nontender and Ascites present Neuro: General: patient oriented x3 (answering appropriately.) Extrem: General: Yes full ROM, Yes capillary refill normal, Yes edema (2+ pitting pretibial and pedal edema) and Yes vascular access (Right chest port) Psych: Affect: normal affect Attitude: cooperative Results Labs CBC & Chem 7: 10/10/22 02:19 12/28/22 02:21 Labs: Short CBC 10/09/22 10/10/22 10/10/22 Range/Units 17:12 01:28 02:19 WBC 20.8 H 15.2 H 16.8 H (4.8-10.8) X10*3/uL Hgb 8.9 L 6.1 L* D 6.7 L* (12.0-16.0) g/dl Hct 28.8 L D 19.8 L* D 22.0 L (37.0-47.0) % Plt Count 426 H 248 D 253 (160-400) X10*3/uL BMP 10/09/22 10/10/22 17:12 02:21 Sodium 132 L 133 L Potassium 5.5 H 5.6 H Chloride 98 104 Carbon Dioxide 21 L 17 L BUN 27 H D 24 H Creatinine 2.46 H 2.21 H Calcium 8.3 L 8.2 L Liver Function 10/09/22 Range/Units 17:12 Total Bilirubin 0.3 (0.0-1.0) mg/dL AST 16 D (5-31) U/L ALT 9 (0-31) U/L Alkaline Phosphatase 151 H D (39-117) U/L Albumin 2.5 L D (3.5-5.0) g/dL Assessment and Plan (1) Sepsis: Status: Acute (2) Acute hypotension: Status: Acute (3) Pancytopenia due to chemotherapy: Status: Acute (4) Symptomatic anemia: Status: Acute (5) Pancreatic adenocarcinoma: Status: Chronic (6) Anasarca: Status: Acute (7) Ascites: Status: Acute (8) TONNY (acute kidney injury): Status: Acute (9) Hyperkalemia: Status: Acute (10) Hypoglycemia: Status: Acute (11) Hyponatremia: Status: Acute (12) Nausea: Status: Acute (13) Pallor: Status: Acute (14) Anemia: Status: Acute (15) DMII (diabetes mellitus, type 2): Qualifiers: Diabetes mellitus complication status: with hyperglycemia Diabetes mellitus longshore equipment operator insulin use: without longshore equipment operator use Qualified Code(s): E11.65 - Type 2 diabetes mellitus with hyperglycemia Status: Acute Plan Neuro:?No Acute issues. ? Cardiac: ?Septic shock-? patient has significant elevated lactic acid,? elevated white count, TONNY,? hyportension,?and tachycardia.? Abdominal CT? did show?ascites.? CT of the chest?Atelectasis or small infiltrates at both lung bases, right greater than left probably due to pressure from ascites.? Continue antibiotics.?Continue pressors. Continue to trend Lactic acid. Received? a total 3.5 L in the ED.?IVF d/c'd due to third-spacing and risk for volume overload. Pulmonary:?CT of the chest?Atelectasis or small infiltrates at both lung bases, right greater than left probably due to pressure from ascites rather than pneumonia. Continue antibiotics. Will continue to monitor.? Renal:?TONNY- most likely related to hypoperfusion. Hyponatremia- D5W given. Borderline hyperkalemia- Insulin, D50 given. Pseudo Hypocalcemia- Albumin given. Corrected Calcium 9.4. Continue to check renal induces and urine output Endo: ?No acute issues.??SS insulin ordered. GI:?Hx of metastatic pancreatic cancer with peritoneal carcinomatosis.Hepatomegaly, spleenomegaly, moderate amount ascites seen on CT. Consult IR for therapeutic paracentesis and lab studies.. ID:?Septic shock likely from SBP.?? Received meropenem, vancomycin in emergency room.? Will send peritoneal fluid for analysis when obtained.? Heme/Onc: Anemia. Likely due to volume overload. Guiac negative, no source of bleeding found. Transfuse 2 units PRBC. Psych:? No acute issues. Diet: Diabetic? Prophylaxis:? Heparin contraindicated. Bilateral pneumatic compression device ordered.? GI prophylaxis ordered. Code? status:? Full code Time Spent With Patient Time: Total time managing care of this patient today ____ minutes.
[2022-10-10] MEDS: Dextrose 50 % 25 GM/50 ML SYRINGE IVPUSH (04:05)
[2022-10-10] MEDS: Insulin Regular, Human 100 UNIT/ML 3 ML VIAL IVPUSH (04:06)
[2022-10-10] MEDS: Sodium Bicarbonate 8.4% 50 MEQ/50 ML SYRINGE 100 MEQ IVPUSH (04:14)
[2022-10-10 04:36] LABS: ~Lactic Acid-LAB USE ONLY 5.5 mmol/L (0.5-2.0)
--- NOTE | 2022-10-10 04:47 | PC.NURSE ---
late entry. critical lab of 6.7 reported to JUDITH Caceres.
--- NOTE | 2022-10-10 05:52 | W.PM.CCHP ---
Procedures Date of Service Date of Service: 10/10/22 Central Line Placement Left IJ: Central Line Comments: The left neck was widely prepped and draped in full sterile fashion.? Under US? guidance, the left IJ vein was cannulated on the 1st pass of the 18 g thin wall needle, with return of dark, nonpulsatile blood. ? The wire was threaded without incident.? The 16 cm x 7 Lithuanian triple-lumen CVC was advanced into the vein up to the hub via the Seldinger technique without incident.? There was good blood return x3.? The catheter was sutured x2 and a Biopatch and dry sterile dressing were applied. Postop chest x-ray showed the line in good position with no pneumothorax.? The patient tolerated the procedure well with no complications. Consent for Procedure: Emergent-no informed consent obtained Time out performed: Yes Sterile Technique Used: Yes Patient placed on monitor/pulse ox: Yes prep: mask, gown and gloves Central line prep: Chlorhexidine scrub and sterile drapes applied Local anesthesia used: lidocaine 1% Amount of anesthesia used (ml): 3 Ultrasound used for placement: Yes Central line lumen inserted: triple Post procedure: sutured in place, good blood return, all ports aspirated, flushed, capped and sterile dressing applied Post procedure x-ray: tip of catheter in good position and no pneumothorax seen Patient tolerated procedure: well and no complications
[2022-10-10] MEDS: Omeprazole 40 MG CAPSULE.DR PO (06:26)
--- NOTE | 2022-10-10 06:28 | PC.NURSE ---
to icur from Ed 0430 A&O on 5LNC, arrived with levo running into right chest port. Levo titrated to sbp greater than 100. ICU MEAT AND POULTRY INSPECTOR placed TLC to L IJ. St on tele. 1 unit PRBCs hanging at this time. D/c d5ns per shabana AGUAYO.
[2022-10-10] MEDS: ondansetron HCL 4 MG/2 ML VIAL IVPUSH (07:36)
[2022-10-10 08:18] LABS: MANUAL DIFF FLAG NO
[2022-10-10 08:28] LABS: Basophils Percent Auto 0.2 % (0-2); Hematocrit 23.2 % (37.0-47.0); Hemoglobin 7.3 g/dl (12.0-16.0); Imm Gran Abs Auto 0.13 X10*3/uL (0.00-0.03); Imm Gran Pct Auto 0.7 % (0.0-0.4); Lymphocytes Percent Auto 10.8 % (20-40); Mean Corpuscular HGB Conc 31.5 g/dl (31.0-35.0); Mean Corpuscular Hemoglobin 29.1 pg (27.0-33.0); Mean Corpuscular Volume 92.4 fL (80.0-98.0); Mean Platelet Volume 9.4 fL (9.4-12.3); Monocytes Absolute Auto 1.4 X10*3/uL (0.1-1.2); Monocytes Percent Auto 7.5 % (2-11); Neutrophils Absolute Auto 15.1 x10*3/uL (2.0-8.3); Neutrophils Percent Auto 80.8 % (45-73); Platelet Count 333 X10*3/uL (160-400); Red Blood Count 2.51 X10*6/uL (4.20-5.50); Red Cell Distribution Width 15.5 % (11.0-16.0); White Blood Count 18.7 X10*3/uL (4.8-10.8)
[2022-10-10 08:33] LABS: Appearance Urine Cloudy; Color Urine Yellow; Glucose Urine UA Negative (Negative); Leukocyte Esterase Urine Large (3+) (Negative); Nitrite Urine Negative (Negative); Specific Gravity - Urine 1.015 (1.005-1.025); UMIC TRIGGER UACC YES; Urine Blood Large (3+) (Negative); Urine Ketones Negative (Negative); Urine Protein 100 (2+) mg/dL (Neg-Trace)
[2022-10-10 08:47] LABS: Bacteria Urine Trace (None Seen); RBC Urine >20 /HPF (0-2); UACC Culture Trigger YES; WBC Urine >50 /HPF (0-5)
[2022-10-10 08:57] LABS: Alanine Aminotransferase 7 U/L (0-31); Alkaline Phosphatase 100 U/L (39-117); Alkaline Phosphatase 101 U/L (39-117); Anion Gap 18 (12-20); Anion Gap 19 (12-20); Aspartate Amino Transferase 12 U/L (5-31); Aspartate Amino Transferase 13 U/L (5-31); Bilirubin Total 2.4 mg/dL (0.0-1.0); Blood Urea Nitrogen 24 mg/dL (9-16); Calcium 8.6 mg/dL (8.4-10.2); Calcium 8.7 mg/dL (8.4-10.2); Carbon Dioxide 22 mmol/L (22-29); Carbon Dioxide 23 mmol/L (22-29); Chloride 100 mmol/L (96-108); Chloride 101 mmol/L (96-108); Creatinine Clr Calc Pharmacy 20.1; Creatinine Clr Calc Pharmacy 20.3; Estimated Glomerular Filt Rate 24; Glucose Fasting 127 mg/dL (60-99); Glucose Random 128 mg/dL (60-115); Potassium 4.6 mmol/L (3.3-5.1); Potassium 4.7 mmol/L (3.3-5.1); Sodium 136 mmol/L (135-145); Sodium 137 mmol/L (135-145); Total Protein 5.2 g/dL (6.5-8.0); Total Protein 5.3 g/dL (6.5-8.0)
[2022-10-10 08:59] LABS: Lactic Acid 3.6 mmol/L (0.5-2.0)
--- NOTE | 2022-10-10 10:10 | MHC.CLN ---
PT WITH INCREASED NUTRITION RISK R/T ACUTE ILLNESS IN ADDITION TO PANCREATIC CA WITH METS PT WITH 17% NONSIGNIFICANT WT LOSS X 1 YEAR PT C/O N/V X 3 DAYS DIET RX: NPO WHEN DIET TO ADVANCE, RECOMMEND ADDING ENSURE BID TO INCREASE KCALS SUPP TO PROVIDE 700KCALS, 40G PROTEIN WITH 100% ACCEPTANCE MONITOR PO INTAKE CLOSELY SEE ALSO FULL CLINICAL NUTRITION ASSESSMENT
[2022-10-10 10:15] LABS: Reflex Lactate? Lactic Acid Added
[2022-10-10] MEDS: HYDROmorphone HCl 1 MG/ML SYRINGE IVPUSH (10:18)
--- NOTE | 2022-10-10 13:01 | MHC.CM.PN ---
Attempted to meet with patient in regards to discharge planning. Patient currently sleeping. Spoke with patient's , Enrique via telephone at [phone]. Per Enrique, patient will return to [facility] via S when medically stable. PCP verified. Copy of HCP verified to be on file. Patient received 4 Moderna vaccines. IMM explained and sent to Enrique via certified mail. Continue to monitor for d/c needs.
[2022-10-10] MEDS: Lidocaine HCl 1 % MPF 30 ML VIAL SUBCUT (15:45)
[2022-10-10 16:09] LABS: Cancel Lactic Acid Canceled
--- NOTE | 2022-10-10 16:25 | P.PNCC_ITS ---
Subjective Subjective Date of Service: 10/10/22 Interval History: Mrs. Pitt was admitted to the ICU early this morning bec of hypotension. Briefly, the patient is a 72-year-old female with metastatic pancreatic cancer (initially dx?d in May, taken care of by Dr. Beverly), among other medical problems.? She?s been pancytopenic 2? chemo.? She?s had previous paracentesis for ascites build up.? She tested COVID positive on 08/10/2022 and was asympt omatic without hypoxia.? She was transferred to a SNF in July bec her could no longer care for her at home. The patient has had constant left-sided abdominal pain for weeks, worse over the past several days. ?For some reason, according to the and Dr. Beverly, [place] [facility] been unable to manage that. Last several days the patient has been weak, and had N&V.? The patient was BIBA to the ED yesterday bec of hypoglycemia.? EMS reported that the patient's blood sugar was 19.? She was given D50 en route. Notable hosp course so far:? Was hypotensive on arrival and hypoglycemic.? She was started on D5 normal saline; sugars responded appropriately.? CT abdomen demonstrated moderate ascites and changes consistent with pancreatic CA. ?She was pancultured and given vancomycin and meropenem and admitted to Medicine, with full code status. Early this morning, she became severely hypotensive despite albumin and fluid resuscitation given for sepsis. She was started on Levophed and admitted to the ICU. ?A CVC was placed in the left IJ.? Thought to be in septic shock.? Abx were continued, and she was given albumin and 2 u RBCs. This afternoon, the patient is fully awake and appropriate.? Breathing easy on 5L NC with Sat 97-99%.? HR 109, SR, BP 98/53 on Levophed 0.1ug.? Been afebrile throughout.? She currently denies pain (has had no analgesics this hospit alization. My bedside echo:? Excellent images.? Normal LV and RV size and fxn. ?Trace AI, no MR, 3+ TR by color dadis.? TV CWD measured 3.4 m/sec (gradient 46mm).? IVC measured 2.18cm, with about 25% insp collapse.? CVP estimate 13mm.? RVSP 59mm. IMPRESSION 1. Metastatic pancreatic cancer.? I?m guessing her longevity is anywhere from days to 2-3 months. 2. Chronic pain.? 2? above.? There?s no reason for her to be in pain.? I have written her for dixie Thompson.? At this point in time, I do not think that she is a candidate for, say, a celiac plexus block.? Maybe a fentanyl patch would work best for her. 3. Septic shock.? On Abx.? Adequately vol resuscitated. 4. TONNY. 5. Anemia. ADDENDUM:? I had a long conversation with the Scotty (primary HCP, cell [phone]) and the patient?s sister Blaire Marin (secondary HCP, cell [phone]) this afternoon.? I also spoke with Dr. Beverly this afternoon.? Scotty was at her office yesterday.? Dr. Beverly told me with great certainty that Scotty is fully aware of the diagnosis, and the terminal nature of his 's disease, and was not happy that she was brought to the hospital.? Dr. Beverly told me that both Scotty and the sister wanted the patient in hospice. From my conversation with Scotty and Irasema, it is not clear to me that the patient is fully concretely aware of her diagnosis and the fact that she is dying.? Neither of them were interested in telling her.? They are both fully on board with hospice and comfort measures.? They don?t want anything else, no antibiotics, no more procedures.? She will have to go to a hospice setting, because their home situation is not suitable for a home hospice.? I spoke with the family service caseworker in the ED and that will be addressed tomorrow. So for tonfarideh, I will write TYPING ELEMENT MACHINE OPERATOR orders and the patient will go upstairs to med surg.? I will sign out to the hospitalists. Critical care time (including extended chart rev):? 80+ min. Critical Care Time (minutes): 80 Physical Exam Vital Signs: Vital Signs: Last Vital Signs Temp 99 F 10/10/22 16:00 Pulse 108 H 10/10/22 16:00 Resp 12 10/10/22 16:00 BP 128/67 10/10/22 16:00 Pulse Ox 99 10/10/22 16:00 O2 Del Method 10/10/22 16:00 O2 Flow Rate 5 10/10/22 16:00 FiO2 50 10/10/22 08:00 BMI result Body Mass Index 24.3 Objective Data Labs CBC & Chem 7: 10/10/22 08:10 10/10/22 08:10 Labs: Laboratory Results - last 24 hr 10/09/22 10/09/22 10/09/22 16:57 17:12 17:12 WBC 20.8 H RBC 3.17 L Hgb 8.9 L Hct 28.8 L D MCV 90.9 MCH 28.1 MCHC 30.9 L RDW 15.1 Plt Count 426 H MPV 9.1 L Immature Gran % (Auto) 0.7 H Neut % (Auto) 89.9 H Lymph % (Auto) 5.0 L [place] % (Auto) 4.3 Eos % (Auto) 0.0 Baso % (Auto) 0.1 Lymph # (Auto) 1.0 L [place] # (Auto) 0.9 Eos # (Auto) 0.0 Baso # (Auto) 0.0 Abs Immat Gran (auto) 0.15 H Absolute Neuts (auto) 18.7 H Absolute Nucleated RBC 0.000 Nucleated RBC % (auto) 0.0 PT 12.7 INR 1.1 APTT 35.7 Sodium Potassium Chloride Carbon Dioxide Anion Gap BUN Creatinine Estim Creat Clear Calc Estimated GFR Random Glucose Fasting Glucose Lactic Acid Lactic Acid F/U @ 2Hr Lactic Acid F/U @ 4Hr Calcium Total Bilirubin AST ALT Alkaline Phosphatase Troponin I High Sens Total Protein Albumin Lipase Procalcitonin TSH Urine Color Urine Appearance Urine pH Ur Specific [place] Urine Protein Urine Glucose (UA) Urine Ketones Urine Blood Urine Nitrite Ur Leukocyte Esterase Urine RBC Urine WBC Ur Squamous Epith Cells Urine Bacteria Hyaline Casts Influenza Type A (PCR) NEGATIVE Influenza Type B (PCR) NEGATIVE RSV RNA Qual (PCR) NEGATIVE SARS-CoV-2 RNA (RT-PCR) NEGATIVE Blood Type Antibody Screen Crossmatch 10/09/22 10/09/22 10/09/22 17:12 17:12 17:13 WBC RBC Hgb Hct MCV MCH MCHC RDW Plt Count MPV Immature Gran % (Auto) Neut % (Auto) Lymph % (Auto) [place] % (Auto) Eos % (Auto) Baso % (Auto) Lymph # (Auto) [place] # (Auto) Eos # (Auto) Baso # (Auto) Abs Immat Gran (auto) Absolute Neuts (auto) Absolute Nucleated RBC Nucleated RBC % (auto) PT INR APTT Sodium 132 L Potassium 5.5 H Chloride 98 Carbon Dioxide 21 L Anion Gap 19 BUN 27 H D Creatinine 2.46 H Estim Creat Clear Calc 16.8 Estimated GFR 19 Random Glucose 188 H Fasting Glucose Lactic Acid 6.2 H* Lactic Acid F/U @ 2Hr Lactic Acid F/U @ 4Hr Calcium 8.3 L Total Bilirubin 0.3 AST 16 D ALT 9 Alkaline Phosphatase 151 H D Troponin I High Sens 19.1 H D Total Protein 4.8 L Albumin 2.5 L D Lipase 11 Procalcitonin TSH 1.26 Urine Color Urine Appearance Urine pH Ur Specific [place] Urine Protein Urine Glucose (UA) Urine Ketones Urine Blood Urine Nitrite Ur Leukocyte Esterase Urine RBC Urine WBC Ur Squamous Epith Cells Urine Bacteria Hyaline Casts Influenza Type A (PCR) Influenza Type B (PCR) RSV RNA Qual (PCR) SARS-CoV-2 RNA (RT-PCR) Blood Type Antibody Screen Crossmatch 10/10/22 10/10/22 10/10/22 00:36 01:28 02:19 WBC 15.2 H RBC 2.17 L D Hgb 6.1 L* D Hct 19.8 L* D MCV 91.2 MCH 28.1 MCHC 30.8 L RDW 15.1 Plt Count 248 D MPV 9.2 L Immature Gran % (Auto) 0.9 H Neut % (Auto) 88.7 H Lymph % (Auto) 6.7 L [place] % (Auto) 3.6 Eos % (Auto) 0.0 Baso % (Auto) 0.1 Lymph # (Auto) 1.0 L [place] # (Auto) 0.5 Eos # (Auto) 0.0 Baso # (Auto) 0.0 Abs Immat Gran (auto) 0.14 H Absolute Neuts (auto) 13.5 H Absolute Nucleated RBC 0.000 Nucleated RBC % (auto) 0.0 PT INR APTT Sodium Potassium Chloride Carbon Dioxide Anion Gap BUN Creatinine Estim Creat Clear Calc Estimated GFR Random Glucose Fasting Glucose Lactic Acid Lactic Acid F/U @ 2Hr 7.3 H* Lactic Acid F/U @ 4Hr Calcium Total Bilirubin AST ALT Alkaline Phosphatase Troponin I High Sens Total Protein Albumin Lipase Procalcitonin 0.58 TSH Urine Color Urine Appearance Urine pH Ur Specific [place] Urine Protein Urine Glucose (UA) Urine Ketones Urine Blood Urine Nitrite Ur Leukocyte Esterase Urine RBC Urine WBC Ur Squamous Epith Cells Urine Bacteria Hyaline Casts Influenza Type A (PCR) Influenza Type B (PCR) RSV RNA Qual (PCR) SARS-CoV-2 RNA (RT-PCR) Blood Type Antibody Screen Crossmatch 10/10/22 10/10/22 10/10/22 02:19 02:21 02:21 WBC 16.8 H RBC 2.38 L Hgb 6.7 L* Hct 22.0 L MCV 92.4 MCH 28.2 MCHC 30.5 L RDW 15.2 Plt Count 253 MPV 9.1 L Immature Gran % (Auto) 0.5 H Neut % (Auto) 88.2 H Lymph % (Auto) 7.2 L [place] % (Auto) 4.0 Eos % (Auto) 0.0 Baso % (Auto) 0.1 Lymph # (Auto) 1.2 [place] # (Auto) 0.7 Eos # (Auto) 0.0 Baso # (Auto) 0.0 Abs Immat Gran (auto) 0.08 H Absolute Neuts (auto) 14.8 H Absolute Nucleated RBC 0.000 Nucleated RBC % (auto) 0.0 PT INR APTT Sodium 133 L Potassium 5.6 H Chloride 104 Carbon Dioxide 17 L Anion Gap 18 BUN 24 H Creatinine 2.21 H Estim Creat Clear Calc 18.7 Estimated GFR 22 Random Glucose 163 H Fasting Glucose Lactic Acid Lactic Acid F/U @ 2Hr Lactic Acid F/U @ 4Hr Calcium 8.2 L Total Bilirubin AST ALT Alkaline Phosphatase Troponin I High Sens Total Protein Albumin Lipase Procalcitonin TSH Urine Color Urine Appearance Urine pH Ur Specific [place] Urine Protein Urine Glucose (UA) Urine Ketones Urine Blood Urine Nitrite Ur Leukocyte Esterase Urine RBC Urine WBC Ur Squamous Epith Cells Urine Bacteria Hyaline Casts Influenza Type A (PCR) Influenza Type B (PCR) RSV RNA Qual (PCR) SARS-CoV-2 RNA (RT-PCR) Blood Type O Negative Antibody Screen NEGATIVE Crossmatch See Detail 10/10/22 10/10/22 10/10/22 04:08 08:10 08:10 WBC 18.7 H RBC 2.51 L Hgb 7.3 L Hct 23.2 L MCV 92.4 MCH 29.1 MCHC 31.5 RDW 15.5 Plt Count 333 D MPV 9.4 Immature Gran % (Auto) 0.7 H Neut % (Auto) 80.8 H Lymph % (Auto) 10.8 L [place] % (Auto) 7.5 Eos % (Auto) 0.0 Baso % (Auto) 0.2 Lymph # (Auto) 2.0 [place] # (Auto) 1.4 H Eos # (Auto) 0.0 Baso # (Auto) 0.0 Abs Immat Gran (auto) 0.13 H Absolute Neuts (auto) 15.1 H Absolute Nucleated RBC 0.000 Nucleated RBC % (auto) 0.0 PT INR APTT Sodium 136 Potassium 4.6 Chloride 100 Carbon Dioxide 23 Anion Gap 18 BUN 24 H Creatinine 2.04 H Estim Creat Clear Calc 20.3 Estimated GFR 24 Random Glucose Fasting Glucose 127 H Lactic Acid Lactic Acid F/U @ 2Hr Lactic Acid F/U @ 4Hr 5.5 H* Calcium 8.6 Total Bilirubin 2.4 H AST 12 ALT 7 Alkaline Phosphatase 101 Troponin I High Sens Total Protein 5.2 L Albumin 4.0 Lipase Procalcitonin TSH Urine Color Urine Appearance Urine pH Ur Specific [place] Urine Protein Urine Glucose (UA) Urine Ketones Urine Blood Urine Nitrite Ur Leukocyte Esterase Urine RBC Urine WBC Ur Squamous Epith Cells Urine Bacteria Hyaline Casts Influenza Type A (PCR) Influenza Type B (PCR) RSV RNA Qual (PCR) SARS-CoV-2 RNA (RT-PCR) Blood Type Antibody Screen Crossmatch 10/10/22 10/10/22 10/10/22 08:10 08:10 08:10 WBC Cancelled RBC Cancelled Hgb Cancelled Hct Cancelled MCV Cancelled MCH Cancelled MCHC Cancelled RDW Cancelled Plt Count Cancelled MPV Cancelled Immature Gran % (Auto) Cancelled Neut % (Auto) Cancelled Lymph % (Auto) Cancelled [place] % (Auto) Cancelled Eos % (Auto) Cancelled Baso % (Auto) Cancelled Lymph # (Auto) Cancelled [place] # (Auto) Cancelled Eos # (Auto) Cancelled Baso # (Auto) Cancelled Abs Immat Gran (auto) Cancelled Absolute Neuts (auto) Cancelled Absolute Nucleated RBC Cancelled Nucleated RBC % (auto) Cancelled PT INR APTT Sodium 137 Potassium 4.7 Chloride 101 Carbon Dioxide 22 Anion Gap 19 BUN 24 H Creatinine 2.05 H Estim Creat Clear Calc 20.1 Estimated GFR 24 Random Glucose 128 H Fasting Glucose Lactic Acid 3.6 H* Lactic Acid F/U @ 2Hr Lactic Acid F/U @ 4Hr Calcium 8.7 Total Bilirubin 2.4 H AST 13 ALT 7 Alkaline Phosphatase 100 Troponin I High Sens Total Protein 5.3 L Albumin 4.0 Lipase Procalcitonin TSH Urine Color Urine Appearance Urine pH Ur Specific [place] Urine Protein Urine Glucose (UA) Urine Ketones Urine Blood Urine Nitrite Ur Leukocyte Esterase Urine RBC Urine WBC Ur Squamous Epith Cells Urine Bacteria Hyaline Casts Influenza Type A (PCR) Influenza Type B (PCR) RSV RNA Qual (PCR) SARS-CoV-2 RNA (RT-PCR) Blood Type Antibody Screen Crossmatch 10/10/22 Unknown WBC RBC Hgb Hct MCV MCH MCHC RDW Plt Count MPV Immature Gran % (Auto) Neut % (Auto) Lymph % (Auto) [place] % (Auto) Eos % (Auto) Baso % (Auto) Lymph # (Auto) [place] # (Auto) Eos # (Auto) Baso # (Auto) Abs Immat Gran (auto) Absolute Neuts (auto) Absolute Nucleated RBC Nucleated RBC % (auto) PT INR APTT Sodium Potassium Chloride Carbon Dioxide Anion Gap BUN Creatinine Estim Creat Clear Calc Estimated GFR Random Glucose Fasting Glucose Lactic Acid Lactic Acid F/U @ 2Hr Lactic Acid F/U @ 4Hr Calcium Total Bilirubin AST ALT Alkaline Phosphatase Troponin I High Sens Total Protein Albumin Lipase Procalcitonin TSH Urine Color Yellow Urine Appearance Cloudy Urine pH 6.0 Ur Specific [place] 1.015 Urine Protein 100 (2+) H Urine Glucose (UA) Negative Urine Ketones Negative Urine Blood Large (3+) H Urine Nitrite Negative Ur Leukocyte Esterase Large (3+) H Urine RBC >20 H Urine WBC >50 H Ur Squamous Epith Cells 6-10 Urine Bacteria Trace Hyaline Casts 3-5 Influenza Type A (PCR) Influenza Type B (PCR) RSV RNA Qual (PCR) SARS-CoV-2 RNA (RT-PCR) Blood Type Antibody Screen Crossmatch Quality Stroke Does the patient have a stroke diagnosis?: No VTE Prior VTE?: No VTE Risk Level:: Medical - moderate - high VTE Device Contraindication: Treatment Not Indicated VTE Drug Contraindication: N/A - Med Ordered Critical Care Time Critical Care Time (minutes): 90
[2022-10-10 16:31] LABS: WBC Peritoneal Fluid 0.038 X10*3/uL
[2022-10-10] MEDS: Albumin Human 25 % 50 ML 200 ML IV ×2 (16:31→17:26)
[2022-10-10 16:33] LABS: RBC Peritoneal Fluid < 0.002 X10*6/uL
[2022-10-10 16:57] LABS: BF Shift QC OK YES
[2022-10-10 16:58] LABS: Monocytes Peritoneal Fl 33 %; Neutrophils Peritoneal Fluid 34 %; Other Peritioneal Fl 33 %
--- NOTE | 2022-10-10 17:07 | MHC.CM.PN ---
WILLIAM received a call from Dr. Gallagher in ICU. Pt with metastatic pancreatic CA. Was a [facility] . Family is requesting hospice at the facility. Pt will be moved from ICU to [address] Gallagher requesting hospice to be contact in the morning to arrange for services. WILLIAM had placed a return referral to [facility] yesterday. They are reviewing. Will need to F/U in the morning.
[2022-10-10 18:01] LABS: pH Peritoneal Fluid 7.44
[2022-10-10] MEDS: HYDROmorphone HCl 0.5 MG/0.5 ML SYRINGE IVPUSH (18:58)
--- NOTE | 2022-10-10 19:21 | PC.NURSE ---
Assumed care of patient 07:00 10:00 patient received full bed bath 14:30-15:30 patient had a paracentesis procedure at bedside. MD removed 6L straw colored intraperitoneal fluid. Ordered labs collected and sent. 16:00 MD discussed patient plan of care and diagnoses with primary HCP ( Enrique) and secondary HCP (sister Gina). Family decided to change code status to DNR/DNI and patient will be comfort measures only. MD discontinued medications per HCP and started prn pain management. Patient will be transferred to Medical-surgical unit as QC TECH. Patient repositioned Q2H, prevlon system utilized.
--- NOTE | 2022-10-10 22:53 | P.CNID_ITS ---
History of Present Illness Data of Consult Service Date: 10/10/22 Requesting physician: George Gallagher Primary Care Provider: Sammy Cordova PA-C HPI Reason for consult: possible bacteremia She presents to hospital with weakness as well as upper chest wall pain. She has no nausea or vomiting. She has 6 liters paracentesis removal of fluid abdomen. She has been on Merem and Vancomycin. Review of Systems Review of Systems: Yes all other systems are reviewed and are negative PMFSH Past Medical History Medical History Acute sinusitis Anemia Ascites Carcinomatosis peritonei Cardiac arrhythmia Chest pain Diabetes Dysuria Dysuria Flank pain VERO (generalized anxiety disorder) GERD (gastroesophageal reflux disease) HLD (hyperlipidemia) HTN (hypertension) Hypothyroidism Left knee pain Leg edema Metastasis from pancreatic cancer Pancreatic adenocarcinoma Post-menopausal Recurrent UTI Rib pain on right side Sinusitis Urinary frequency Urinary tract infection UTI (urinary tract infection) Yeast infection of the vagina Functional capacity: uses cane/walker Family History Family History Father CVD (cardiovascular disease) Mother No problems noted. Family history: reviewed and not pertinent Surgical History Surgical History H/O: hysterectomy History of cardiac radiofrequency ablation Social History Social History Household Members: Spouse Housing: Long-Term Do you presently have visiting nurse or other home services: No (lives in nuring home) Alcohol intake: never Patient Tobacco Use Status: Former Tobacco user Quit Date: 40 years ago Tobacco use type: Cigarette e-Cigarette/Vaping Use: Former Use Second Hand Smoke Exposure: Yes Use of substances other than those prescribed or required for medical reasons: No Currently Displaying Signs/Symptoms of Drug Intoxication Withdrawal: No Have you been hit, kicked, punched, or otherwise hurt by someone within the past year? If so, by whom?: No Do you feel safe in your current relationship?: Yes Is there a partner from a previous relationship who is making you feel unsafe now?: No Are you made to feel afraid or neglected: No Advance Directives: Yes Advance Directives on File: Yes Advance Directives Date on File: 06/21/22 Do you have thoughts of harming others: None Do you have a plan to hurt others: No Plan Recently lost weight without trying: Unsure How much weight loss: Unsure Eating poorly because of decreased appetite: Yes Nutrition screen score: 5 Nutrition Risks: Emaciation/Cachexia Patient : No : No Poor oral hygiene: No service: No Current occupational status: retired Current occupation: rt handed Cognitive needs: No Hearing needs: No Vision needs: Yes Meds Allergies Allergy/AdvReac Type Severity Reaction Status Date / Time amoxicillin [From Augmentin] Allergy Intermediate rash Verified 08/22/22 11:11 cefuroxime [From CEFTIN] Allergy Intermediate RASH Verified 08/22/22 11:11 clavulanic acid Allergy Intermediate rash Verified 08/22/22 11:11 [From Augmentin] doxycycline [DOXYCYCLINE] Allergy Intermediate HIVES Verified 08/22/22 11:11 Sulfa (Sulfonamide Allergy Intermediate unknown Verified 08/22/22 11:11 Antibiotics) Active Medications: Current Medications Hydromorphone HCl (Hydromorphone Hcl 0.5 Mg/0.5 Ml Syringe) 0.5 mg IVPUSH Q1H PRN PRN Reason: Pain, mild to moderate (1-6) Last Admin: 10/10/22 18:58 Dose: 0.5 mg Hydromorphone HCl (Hydromorphone Hcl 1 Mg/Ml Syringe) 1 mg IVPUSH Q2H PRN PRN Reason: Pain, Severe (Pain Scale 7-10) Lorazepam (Lorazepam 0.5 Mg Tablet) 0.5 mg PO BEDTIME PRN PRN Reason: Anxiety Melatonin (Melatonin 3 Mg Tablet) 3 mg PO BEDTIME PRN PRN Reason: Sleep Ondansetron HCl (Ondansetron Hcl 4 Mg/2 Ml Vial) 8 mg IVPUSH Q8H PRN PRN Reason: nausea and vomiting Pharmacy Consult (Consult Rx Perform Med Rec) 1 each MISCELLANE ONCE PRN PRN Reason: Consult order Home Medications Medication Instructions Recorded Confirmed Last Taken Type levothyroxine 50 mcg tablet 1 tab PO DAILY@0600 08/10/22 10/09/22 08/27/22 History lorazepam 0.5 mg tablet 0.5 mg PO BEDTIME PRN Anxiety 08/10/22 10/09/22 Unknown History metformin 500 mg tablet,extended 1,000 mg PO BID 08/10/22 10/09/22 08/27/22 History release 24 hr potassium chloride 10 mEq 2 tab PO DAILY 08/10/22 10/09/22 Unknown History tablet,extended release acetaminophen 300 mg-codeine 30 mg 1 tab PO Q8H PRN Pain 08/13/22 10/09/22 Unknown History tablet aluminum-mag hydroxide-simethicone 5 ml PO Q6H PRN Indigestion 08/13/22 10/09/22 Unknown History 400 mg-400 mg-40 mg/5 mL oral susp (Laisha-Lanta) dexamethasone 4 mg tablet See Rx Instructions .Route .COMPLEX 08/13/22 09/26/22 Unknown History fluticasone propionate 50 1 spray intranasal DAILY 08/13/22 10/09/22 Unknown History mcg/actuation nasal spray,suspension latanoprost 0.005 % eye drops 1 drp ophthalmic (eye) QPM 08/13/22 10/09/22 U nknown History multivitamin 1 tab PO DAILY 08/13/22 10/09/22 Unknown History pantoprazole 40 mg tablet,delayed 1 tab PO DAILY@0630 08/13/22 10/09/22 08/27/22 History release simvastatin 40 mg tablet 40 mg PO BEDTIME 08/13/22 10/09/22 08/27/22 History atenolol 25 mg tablet 0.5 tab PO DAILY 08/22/22 10/09/22 08/27/22 History estradiol 0.5 mg tablet 0.5 mg PO DAILY 08/28/22 10/09/22 Unknown History melatonin 3 mg tablet 3 mg PO BEDTIME PRN Sleep 08/28/22 10/09/22 Unknown History ondansetron HCl 4 mg tablet 1 tab PO Q8H PRN nausea 09/30/22 10/09/22 Unknown History oxycodone 5 mg tablet 1 tab PO Q6H PRN Moderate Pain 09/30/22 10/09/22 Unknown History (Scale Score 5-6) magnesium oxide 400 mg PO DAILY 10/09/22 10/09/22 Unknown History Physical Exam Vital Signs: Vital Signs: Last Vital Signs Temp 98.9 F 10/10/22 21:05 Pulse 111 H 10/10/22 21:05 Resp 20 10/10/22 21:05 BP 96/60 10/10/22 21:05 Pulse Ox 99 10/10/22 19:00 O2 Del Method 10/10/22 21:05 O2 Flow Rate 5 10/10/22 21:05 FiO2 50 10/10/22 08:00 BMI result Body Mass Index 24.3 Const: General: cooperative HEENT: Head: Yes normal to inspection Face and sinus: Yes normal facial exam Mouth: Normal oral and palatal mucosa present Teeth and gingiva: dentition normal Eyes: General: appearance normal, both eyes and all related structures Pupils: Equal, round and reactive pupils present Resp: Effort & Inspection: normal respiratory effort Cardio: Rate: regular rate Rhythm: regular rhythm GI: Palpation (GI): Soft to palpation and nontender : General: Yes no CVA tenderness Back/Spine/Pelvis: Back: no CVA tenderness Skin: General skin exam: no rashes or lesions noted Neuro: General: moves all extremities Cranial nerves: Yes Equal, round and reactive pupils present Extrem: General: Yes normal to inspection Psych: Appearance: grossly normal Results Labs CBC & Chem 7: 10/10/22 08:10 10/10/22 08:10 Labs: Short CBC 10/10/22 10/10/22 10/10/22 Range/Units 01:28 02:19 08:10 WBC 15.2 H 16.8 H 18.7 H (4.8-10.8) X10*3/uL Hgb 6.1 L* D 6.7 L* 7.3 L (12.0-16.0) g/dl Hct 19.8 L* D 22.0 L 23.2 L (37.0-47.0) % Plt Count 248 D 253 333 D (160-400) X10*3/uL 10/10/22 Range/Units 08:10 WBC Cancelled (4.8-10.8) X10*3/uL Hgb Cancelled (12.0-16.0) g/dl Hct Cancelled (37.0-47.0) % Plt Count Cancelled (160-400) X10*3/uL BMP 10/10/22 10/10/22 10/10/22 02:21 08:10 08:10 Sodium 133 L 136 137 Potassium 5.6 H 4.6 4.7 Chloride 104 100 101 Carbon Dioxide 17 L 23 22 BUN 24 H 24 H 24 H Creatinine 2.21 H 2.04 H 2.05 H Calcium 8.2 L 8.6 8.7 Liver Function 10/10/22 10/10/22 Range/Units 08:10 08:10 Total Bilirubin 2.4 H 2.4 H (0.0-1.0) mg/dL AST 12 13 (5-31) U/L ALT 7 7 (0-31) U/L Alkaline Phosphatase 101 100 (39-117) U/L Albumin 4.0 4.0 (3.5-5.0) g/dL Urine 10/10/22 Range/Units Unknown Urine Color Yellow Urine Appearance Cloudy Urine pH 6.0 (5.0-9.0) Ur Specific [place] 1.015 (1.005-1.025) Urine Protein 100 (2+) H (Neg-Trace) mg/dL Urine Glucose (UA) Negative (Negative) mg/dL Microbiology Microbiology Results: Microbiology 10/09/22 18:13 Blood - Venous Blood Culture - Preliminary No growth after 24 hours. 10/09/22 17:12 Blood - Venous Blood Culture - Preliminary No growth after 24 hours. Assessment and Plan (1) Pancytopenia due to chemotherapy: Status: Acute She has no bacteremia and no other cultures available yet She could have infection from bacterial translocation from tumor however nothing seen yet (2) Acute hypotension: Status: Acute Plan Stop Vancomycin and Zosyn Observe. Time Spent With Patient Time: Total time managing care of this patient today ____ minutes.
[2022-10-10 23:37] LABS: Albumin Peritoneal Fluid 1.7 GM/DL; Amylase Peritoneal Fluid 13 U/L; Glucose Peritoneal Fluid 123 MG/DL; LDH Peritoneal Fluid 153 U/L; Total Protein Peritoneal Fluid 2.9 GM/DL
[2022-10-11] MEDS: HYDROmorphone HCl 0.5 MG/0.5 ML SYRINGE IVPUSH (01:46)
[2022-10-11 03:36] VITALS: RESP 18
--- NOTE | 2022-10-11 06:28 | PC.NURSE ---
10/10 Pt arrived to med surg unit at 20:30 as an CHIP APPLYING MACHINE TENDER pt. This nurse performed a head to toe assessment. Pt alert & orientated x3, on 5L NC, marquis intact. Pt repositioned Q2HR & PRN pain med was given throughout shift. Mouth care was provided for comfort. Will continue to monitor pt's pain and provide comfort.
[2022-10-11] MEDS: HYDROmorphone HCl 1 MG/ML SYRINGE IVPUSH ×2 (10:08→14:32)
--- NOTE | 2022-10-11 14:58 | MHC.CM.PN ---
PATIENT to RETURN TO [facility] FOR 6 PM VIA [facility]. FAMILY (IN ROOM) AWARE OF PLAN. SPOUSE/HCP, MARCELO, ON HIS WAY IN TO SEE PATIENT BEFORE SHE TRANSPORTS
--- NOTE | 2022-10-11 15:13 | P.DS_ITS ---
DS: Providers Provider Date of Service: 10/11/22 Date of admission: 10/10/22 00:08 Date of discharge: 10/11/22 Primary care physician: Sammy Cordova PA-C Consults: 10/09/22 18:13 Consult to Infectious Diseases Routine Consulting Provider: Sophie Yusuf Reason for consultation: hospital-acquired pneumonia /sepsis, multiple drug allergies Has provider been notified: No 10/09/22 18:28 Consult to Infectious Diseases Routine Consulting Provider: Sophie Yusuf Reason for consultation: Sepsis Has provider been notified: Yes 10/10/22 03:10 Consult to Critical Care Routine Consulting Provider: George Gallagher Reason for consultation: hypotnsion Has provider been notified: Yes DS: Diagnosis Discharge Diagnosis (1) Pancytopenia due to chemotherapy: Status: Acute (2) Acute hypotension: Status: Acute DS: Summary Hospital Course Hospital Course: 72-year-old female with a past medical history of hypertension, hyperlipidemia, diabetes, hypothyroidism, anemia, history of metastatic pancreatic cancer with peritoneal carcinomatosis, ascites, anxiety, depression ? [facility] for pancytopnea secondary to metastatic pancreatic cancer requiring granix and? blood transfusion during her admission she tested COVID positive on 08/10/2022 and was asymptomatic without hypoxia. According the patient she was living at home your prior to being hospitalized and since that time has been [facility].? Patient reports that she has not been feeling well times 2-3 days.? She states she has had nausea and has had several episodes of vomiting.? She has been feeling very weak and tired.? She had chills but no fever.? She had rhinorrhea, slight cough which is nonproductive left-sided abdominal pain, no diarrhea.? She states that the left-sided abdominal pain is been constant for weeks, but seems worse over the past several days. today the patient was noted to have a low blood sugars.? EMS reported that the patient's blood sugar was 19, she was given D50 in repeat Glucose by the paramedics was 80.? ER course Admitted through ER; found to be hypotensive on arrival and hypoglycemic.? She was started on D5 normal saline; sugars responded appropriately.? CT of the chest demonstrated likely bilateral small infiltrates right greater than left.? CT the abdomen demonstrated moderate ascites and changes consistent with pancreatic CA. she was pancultured and given vancomycin and meropenem.? Hospital course The evening of admission patient became hypotensive and was transferred to the ICU. Code status was unknown at that time. In the ICU she was tapped for 6 L and her blood pressure was normalized. ICU attending had a discussion with antoine norman in the decision was made that patient be DNR DNI with moved towards comfort care. Discussed with the family on the day of discharge and all in agreement including . I informed patient that Dr. Beverly had no further treatments to offer at this time; wished to elaborate on her diagnosis at a later time. At this point in time she will be transferred back to [facility] and hospice consult should be obtained upon her arrival. Family is in full agreement Time Spent with Patient Time attestation: Total time managing care of this patient today ____ minutes. Discharge coordination time: Greater than 30 minutes Quality: Safe Use of Opioids Does Pt have an Active Cancer Diagnosis on the Problem List?: No Quality: Stroke Does the patient have a stroke diagnosis?: No Physical Exam Vital Signs: Vital Signs: Last Vital Signs Temp 98.9 F 10/10/22 21:05 Pulse 111 H 10/10/22 21:05 Resp 18 10/11/22 03:36 BP 96/60 10/10/22 21:05 Pulse Ox 99 10/10/22 19:00 O2 Del Method 10/10/22 21:05 O2 Flow Rate 5 10/10/22 21:05 FiO2 50 10/10/22 08:00 BMI result Body Mass Index 24.3 Const: Other: Awake alert oriented x3 no acute distress HEENT: Other: Mucous membranes dry Resp: Other: Faint crackles bilateral bases otherwise clear to auscultation Cardio: Other: No S4; positive S1-S2; no S3 murmurs rubs or gallops GI: Other: Soft nontender nondistended normoactive bowel sounds Skin: Other: Without significant lesions or rashes Neuro: Other: Cranial nerves 2-12 grossly intact as tested. Motor is 5/5 all extremities. Sensation is intact. Cognition appropriate Extrem: Other: Radial and pedal pulses present. No edema bilaterally DS: Data Data Completed and Pending Completed studies during hospitalization [Text1]: Procedures Drainage of Peritoneal Cavity, Percutaneous Approach (07/28/22) Transfusion of Nonautologous Red Blood Cells into Peripheral Vein, Percutaneous Approach (07/28/22) Labs on day of discharge: Laboratory Results - last 24 hr 10/10/22 10/10/22 10/10/22 15:00 15:00 Unknown Peritoneal pH 7.44 Peritoneal WBC 0.038 Peritoneal RBC < 0.002 Periton Neutrophils 34 Peritoneal Monocytes 33 Peritoneal Other Cells 33 Peritoneal Tot Protein 2.9 Peritoneal Albumin 1.7 Peritoneal LDH 153 Peritoneal Glucose 123 Peritoneal Amylase 13 Preliminary micro results at discharge 10/10/22 15:00 Anaerobic Culture - Preliminary Ascites Fluid No growth to date. Body Fluid Culture - Preliminary No growth to date. 10/09/22 18:13 Blood Culture - Preliminary Blood - Venous No growth after 24 hours. 10/09/22 17:12 Blood Culture - Preliminary Blood - Venous No growth after 24 hours. Discharge Plan Discharge Patient Disposition: er [facility] Discharge Diagnosis: Pneumoniaw/sepsis Referrals: [facility] [place] [Outside] - 1 Week Sammy Cordova PA-C [Primary Care Provider] - 1 Week Discharge Medications: Continued atenolol 25 mg tablet 0.5 tab PO DAILY prochlorperazine maleate [Compazine] 10 mg Tablet 10 mg PO Q8H PRN (Reason: Nausea And Vomiting) Qty: 30 4RF potassium chloride 10 mEq tablet extended release 2 tab PO DAILY lorazepam 0.5 mg tablet 0.5 mg PO BEDTIME PRN (Reason: Anxiety) levothyroxine 50 mcg tablet 1 tab PO DAILY@0600 metformin 500 mg tablet extended release 24 hr 1,000 mg PO BID magnesium oxide 400 mg magnesium Tablet 400 mg PO DAILY multivitamin Tablet 1 tab PO DAILY acetaminophen-codeine 300-30 mg tablet 1 tab PO Q8H PRN (Reason: Pain) pantoprazole 40 mg tablet,delayed release (DR/EC) 1 tab PO DAILY@0630 latanoprost 0.005 % Drops 1 drp OPHTHALMIC (EYE) QPM simvastatin 40 mg Tablet 40 mg PO BEDTIME dexamethasone 4 mg Tablet See Rx Instructions .ROUTE .COMPLEX Rx Instructions: 1 tablet twice a day for 2 days post chemo alum-mag hydroxide-simeth [Laisha-Lanta] 400-400-40 mg/5 mL Suspension 5 ml PO Q6H PRN (Reason: Indigestion) fluticasone propionate 50 mcg/actuation [place],Suspension 1 spray INTRANASAL DAILY Rx Instructions: administer into each nostril melatonin 3 mg Tablet 3 mg PO BEDTIME PRN (Reason: Sleep) estradiol 0.5 mg Tablet 0.5 mg PO DAILY Rx Instructions: off 5 days; repeat cycle loperamide 2 mg Capsule 2 mg PO Q6H PRN (Reason: Diarrhea) Qty: 0 0RF ondansetron HCl 4 mg tablet 1 tab PO Q8H PRN (Reason: nausea) oxycodone 5 mg tablet 1 tab PO Q6H PRN (Reason: Moderate Pain (Scale Score 5-6)) Discontinued furosemide [Lasix] 20 mg tablet 20 mg PO DAILY Qty: 30 0RF Discharge Orders: Discharge Order (Routine); Ordered 10/11/22 Ordered By: Brayden Moralez Diet: Advance to usual diet Activity on Discharge: As tolerated Stand Alone Forms: Patient Portal Discharge page Care Plan Goals: Patient to return DNR DNI with moved towards comfort care Health Concerns: Family requesting hospice involvement upon return to [facility] Plan of Treatment: Moved towards comfort care/hospice Assessment: See discharge summary
== END 2022-10-11 17:38 | DRG 871 ==
LOC: HO.ED 18:18 → HO.EDOVER 10-10 03:29 → HO.ICU 10-10 03:43 → HO.S3 10-10 19:09
PROVIDERS: Anesthesiology; Internal Medicine; Physician Assistant Medical; Radiology Diagnostic Radiology; Admitting Provider Internal Medicine; Emergency Provider Emergency Medicine Emergency Medical Services; PCP Physician Assistant; Visit Provider Hospitalist
PROC: 0W9G3ZZ Drainage of Peritoneal Cavity, Percutaneous Approach (ICD-10-PCS; principal; 2022-10-10 12:00)
DX: A41.9 Sepsis, unspecified organism (principal); D61.810 Antineoplastic chemotherapy induced pancytopenia; J18.9 Pneumonia, unspecified organism; C25.9 Malignant neoplasm of pancreas, unspecified; C78.6 Secondary malignant neoplasm of retroperitoneum and peritoneum; E27.40 Unspecified adrenocortical insufficiency; R18.0 Malignant ascites; E78.5 Hyperlipidemia, unspecified; E11.649 Type 2 diabetes mellitus with hypoglycemia without coma; E03.9 Hypothyroidism, unspecified; D63.0 Anemia in neoplastic disease; G89.3 Neoplasm related pain (acute) (chronic); Z66 Do not resuscitate; Z20.822 Contact with and (suspected) exposure to COVID-19; Z51.5 Encounter for palliative care; Z87.891 Personal history of nicotine dependence; Z86.16 Personal history of COVID-19; Z88.0 Allergy status to penicillin; Z88.1 Allergy status to other antibiotic agents; Z88.2 Allergy status to sulfonamides; Z79.84 Long term (current) use of oral hypoglycemic drugs; Z79.890 Hormone replacement therapy; Z79.899 Other long term (current) drug therapy
CPT/HCPCS: 0241U; 36415; 49083; 71045; 71250; 74176; 80048; 80053; 81001; 82042; 82150; 82945; 82947; 83605; 83615; 83690; 83986; 84145; 84157; 84443; 84484; 85025; 85610; 85730; 86850; 86900; 86901; 86923; 87040; 87070; 87073; 87086; 87205; 89051; 93005; 99285; C1758; J1170; J1642; J2185; J2405; J2765; J3370; P9016; P9047

== ENCOUNTER 2022-10-12 06:45 | Emergency (ER) | payer MEDICARE, SELFPAY ==
[2022-10-12 07:05] VITALS: BP 101/60; PULSE 95; RESP 14; O2SAT 96; BMI 24.7
--- NOTE | 2022-10-12 07:11 | ECG_ITS ---
Test Reason : chest pain Blood Pressure : / mmHG Vent. Rate : 096 BPM Atrial Rate : 096 BPM P-R Int : 154 ms QRS Dur : 072 ms QT Int : 360 ms P-R-T Axes : 041 019 022 degrees QTc Int : 454 ms Normal sinus rhythm Low voltage QRS Borderline ECG When compared with ECG of 09-OCT-2022 16:09, No significant change was found Referred By: Sharon Kuhn Electronically Signed By:JOSE FRANCISCO PABLO MD
[2022-10-12 07:27] VITALS: BP 99/54; PULSE 95; RESP 17; TEMP 37.6; O2SAT 100
[2022-10-12] MEDS: ondansetron HCL 4 MG/2 ML VIAL IVPUSH (07:40)
[2022-10-12] MEDS: Dextrose 50 % 25 GM/50 ML SYRINGE IVPUSH (07:40)
[2022-10-12] MEDS: 0.9 % Sodium Chloride 1,000 ML 999 ML IV (07:40)
[2022-10-12 07:52] LABS: Glucose, Whole Blood 51 mg/dL (60-115)
[2022-10-12 07:53] LABS: MANUAL DIFF FLAG NO
[2022-10-12 07:54] LABS: Basophils Percent Auto 0.1 % (0-2); Eosinophils Percent Auto 0.1 % (0-4); Hematocrit 30.6 % (37.0-47.0); Hemoglobin 9.9 g/dl (12.0-16.0); Imm Gran Abs Auto 0.04 X10*3/uL (0.00-0.03); Imm Gran Pct Auto 0.3 % (0.0-0.4); Lymphocytes Absolute Auto 1.9 X10*3/uL (1.2-4.9); Lymphocytes Percent Auto 15.7 % (20-40); Mean Corpuscular HGB Conc 32.4 g/dl (31.0-35.0); Mean Corpuscular Hemoglobin 29.1 pg (27.0-33.0); Mean Platelet Volume 9.5 fL (9.4-12.3); Monocytes Absolute Auto 0.4 X10*3/uL (0.1-1.2); Monocytes Percent Auto 3.3 % (2-11); Neutrophils Absolute Auto 9.5 x10*3/uL (2.0-8.3); Neutrophils Percent Auto 80.5 % (45-73); Platelet Count 162 X10*3/uL (160-400); Red Cell Distribution Width 15.3 % (11.0-16.0); White Blood Count 11.8 X10*3/uL (4.8-10.8)
[2022-10-12 08:00] LABS: INTERNATIONAL NORM RATIO 1.2 (0.9-1.1); Prothrombin Time 13.7 SEC (10.0-13.1)
--- NOTE | 2022-10-12 08:03 | PC.NURSE ---
accessed pts power port
--- NOTE | 2022-10-12 08:05 | ED_ITS ---
HPI - Nausea/Vomiting/Diarrhea General Chief complaint: Nausea/Vomiting/Diarrhea Stated complaint: Vomiting Time Seen by Provider: 10/12/22 07:09 Source: patient and EMS Mode of arrival: EMS History of Present Illness HPI Narrative: 72-year-old female arrives via EMS from long-term care facility after being discharged yesterday. Majority of history is provided by EMS who reports that patient has been vomiting bile since being brought back to [facility] in [place]. Although patient receive Zofran at 01:00 it only worked for a short period of time and then patient resumed with multiple episodes of ?bright green bile . EMS reports that she was covered it and on their arrival on scene. Patient's history is significant for pancreatic cancer and dementia. Patient is on a 4-6 L of nasal cannula baseline. EMS did provide 300 cc of normal saline EN route. Related Data Home Medications Medication Instructions Recorded Confirmed levothyroxine 50 mcg tablet 1 tab PO DAILY@0600 08/10/22 10/09/22 lorazepam 0.5 mg tablet 0.5 mg PO BEDTIME PRN Anxiety 08/10/22 10/09/22 metformin 500 mg tablet,extended 1,000 mg PO BID 08/10/22 10/09/22 release 24 hr potassium chloride 10 mEq 2 tab PO DAILY 08/10/22 10/09/22 tablet,extended release acetaminophen 300 mg-codeine 30 mg 1 tab PO Q8H PRN Pain 08/13/22 10/09/22 tablet aluminum-mag hydroxide-simethicone 5 ml PO Q6H PRN Indigestion 08/13/22 10/09/22 400 mg-400 mg-40 mg/5 mL oral susp (Laisha-Lanta) dexamethasone 4 mg tablet See Rx Instructions .Route .COMPLEX 08/13/22 09/26/22 fluticasone propionate 50 1 spray intranasal DAILY 08/13/22 10/09/22 mcg/actuation nasal spray,suspension latanoprost 0.005 % eye drops 1 drp ophthalmic (eye) QPM 08/13/22 10/09/22 multivitamin 1 tab PO DAILY 08/13/22 10/09/22 pantoprazole 40 mg tablet,delayed 1 tab PO DAILY@0630 08/13/22 10/09/22 release simvastatin 40 mg tablet 40 mg PO BEDTIME 08/13/22 10/09/22 atenolol 25 mg tablet 0.5 tab PO DAILY 08/22/22 10/09/22 estradiol 0.5 mg tablet 0.5 mg PO DAILY 08/28/22 10/09/22 melatonin 3 mg tablet 3 mg PO BEDTIME PRN Sleep 08/28/22 10/09/22 ondansetron HCl 4 mg tablet 1 tab PO Q8H PRN nausea 09/30/22 10/09/22 oxycodone 5 mg tablet 1 tab PO Q6H PRN Moderate Pain 09/30/22 10/09/22 (Scale Score 5-6) magnesium oxide 400 mg PO DAILY 10/09/22 10/09/22 Previous Rx's Medication Instructions Recorded prochlorperazine maleate 10 mg 10 mg PO Q8H PRN Nausea And 08/23/22 tablet (Compazine) Vomiting #30 tabs loperamide 2 mg capsule 2 mg PO Q6H PRN Diarrhea #0 caps 08/31/22 Allergies Allergy/AdvReac Type Severity Reaction Status Date / Time amoxicillin [From Augmentin] Allergy Intermediate rash Verified 08/22/22 11:11 cefuroxime [From CEFTIN] Allergy Intermediate RASH Verified 08/22/22 11:11 clavulanic acid Allergy Intermediate rash Verified 08/22/22 11:11 [From Augmentin] doxycycline [DOXYCYCLINE] Allergy Intermediate HIVES Verified 08/22/22 11:11 Sulfa (Sulfonamide Allergy Intermediate unknown Verified 08/22/22 11:11 Antibiotics) Review of Systems Review of Systems: Pertinent positives and negatives as stated in HPI [facility] Past Medical History Source: nursing notes reviewed Medical History Acute sinusitis Anemia Ascites Carcinomatosis peritonei Cardiac arrhythmia Chest pain Diabetes Dysuria Dysuria Flank pain VERO (generalized anxiety disorder) GERD (gastroesophageal reflux disease) HLD (hyperlipidemia) HTN (hypertension) Hypothyroidism Left knee pain Leg edema Metastasis from pancreatic cancer Pancreatic adenocarcinoma Post-menopausal Recurrent UTI Rib pain on right side Sinusitis Urinary frequency Urinary tract infection UTI (urinary tract infection) Yeast infection of the vagina Surgical History H/O: hysterectomy History of cardiac radiofrequency ablation Family History Family History Father CVD (cardiovascular disease) Mother No problems noted. Social History Social History Household Members: Spouse Housing: Longterm Do you presently have visiting nurse or other home services: No (lives in nuring home) Alcohol intake: never Patient Tobacco Use Status: Former Tobacco user Quit Date: 40 years ago Tobacco use type: Cigarette e-Cigarette/Vaping Use: Former Use Second Hand Smoke Exposure: Yes Advance Directives: Yes Advance Directives on File: Yes Advance Directives Date on File: 09/27/22 service: No Current occupational status: retired Current occupation: rt handed Cognitive needs: No Hearing needs: No Vision needs: Yes Physical Exam Vital Signs: Vital Signs: Last Vital Signs Temp 99.7 F 10/12/22 07:27 Pulse 95 10/12/22 07:27 Resp 17 10/12/22 07:27 BP 99/54 L 10/12/22 07:27 Pulse Ox 100 10/12/22 07:27 O2 Del Method 10/12/22 07:27 O2 Flow Rate 3 10/12/22 07:27 Oxygen Flow Rate 6 10/12/22 07:05 BMI result Body Mass Index 24.7 VITAL SIGNS: Reviewed. GENERAL: Chronically ill, cachectic, in mild distress. HEAD: Normocephalic/atraumatic EYES: PERRLA, EOMI EARS: Ext canals without abnormality OROPHARYNX: no oral lesions noted, posterior pharynx clear LUNGS: Decreased breath sounds bilateral. SpO2<100> on baseline nasal cannula of 4 L CARDIOVASCULAR: Regular rate and rhythm without noted murmurs, no JVD or lower extremity edema. ABDOMEN: Soft, non-tender, non-distended with bowel sounds, no fluid wave at this time. MUSCULOSKELETAL: No tenderness, deformities, or effusions noted on gross inspection. EXTREMITIES: No cyanosis, clubbing or edema. SKIN: Inspection of the skin reveals no rashes, appears jaundiced NEUROLOGIC: Alert and oriented x 3. Strength and sensation to light touch were grossly intact x 4. Medications Administered Discontinued Medications Generic Name Dose Route Start Last Admin Trade Name Freq PRN Reason Stop Dose Admin Dextrose 25 gm 10/12/22 07:35 10/12/22 07:40 Dextrose 50 % 25 Gm/50 Ml Syringe IVPUSH 10/12/22 07:36 25 gm ONCE ONE Administration Sodium Chloride 1,000 mls @ 999 mls/hr 10/12/22 07:45 10/12/22 09:14 Ns IV 10/12/22 08:45 Infused .Q1H1M NUPUR Infusion Ondansetron HCl 4 mg 10/12/22 07:13 10/12/22 07:40 Ondansetron Hcl 4 Mg/2 Ml Vial IVPUSH 10/12/22 07:14 4 mg ONCE ONE Administration Medical Decision Making Medical Decision Making MDM Narrative: 72-year-old female presents after being discharged yesterday known underlying pancreatic cancer with significant abdominal ascites on last admission. She was also noted to be hypoglycemic during last admission on initial arrival to the ER and began today she is at 51. Her metformin was discontinued but I suspect that her degree of hypoglycemia is secondary to underlying pancreatic cancer and ongoing medical condition with that. Will obtain labs and patient will receive antiemetics. 0838: I discussed the case with Dr. Moralez and he informs me that patient was made DNR/DNI/do not transfer last evening by the family. It appears that may be the staff at the facility became very anxious about the vomiting as has been had not been informed. Dr. Moralez will be calling to speak to the director of the facility and then he is going to get back to me on the final plan. Until that time we will continue to treat the patient appropriately. 0846: I received notification from Dr. Moralez who spoke with the director of nurses at [facility], patient will be placed on hospice today. Dr. Moralez informs me that he spoke with the as well who states he wants her back at [facility] [place]. Her repeat glucose level is within normal limits and she will be transported back to the healthcare facility. Differential Diagnosis Differential Diagnoses: The differential diagnosis associated with the presentation includes Gastric outlet obstruction, hypoglycemia Admission/Observation Consideration of admission/observation: Escalation of care including admission/observation considered But on further information as discussed above patient will be transported back to [facility]. Consult Healthcare Provider Management of the patient was discussed with: Hospitalist I discussed directly with Dr. Moralez, who took care this patient throughout her admission please see the discussion above. Lab Data [facility] Lab Attestation statement: I reviewed the patient's lab results. Please see discussion above. Result Diagrams: 10/12/22 07:48 10/12/22 07:48 Labs: Lab Results 10/12/22 10/12/22 10/12/22 Range/Units 07:34 07:48 07:48 WBC 11.8 H (4.8-10.8) X10*3/uL RBC 3.40 L D (4.20-5.50) X10*6/uL Hgb 9.9 L D (12.0-16.0) g/dl Hct 30.6 L D (37.0-47.0) % MCV 90.0 (80.0-98.0) fL MCH 29.1 (27.0-33.0) pg MCHC 32.4 (31.0-35.0) g/dl RDW 15.3 (11.0-16.0) % Plt Count 162 D (160-400) X10*3/uL MPV 9.5 (9.4-12.3) fL Immature Gran % (Auto) 0.3 (0.0-0.4) % Neut % (Auto) 80.5 H (45-73) % Lymph % (Auto) 15.7 L (20-40) % [place] % (Auto) 3.3 (2-11) % Eos % (Auto) 0.1 (0-4) % Baso % (Auto) 0.1 (0-2) % Lymph # (Auto) 1.9 (1.2-4.9) X10*3/uL [place] # (Auto) 0.4 (0.1-1.2) X10*3/uL Eos # (Auto) 0.0 (0.0-0.4) X10*3/uL Baso # (Auto) 0.0 (0.0-0.2) X10*3/uL Abs Immat Gran (auto) 0.04 H (0.00-0.03) X10*3/uL Absolute Neuts (auto) 9.5 H (2.0-8.3) x10*3/uL Absolute Nucleated RBC 0.000 (0.0-0.012) X10*3/uL Nucleated RBC % (auto) 0.0 (0.0-0.2) /100WBC PT (10.0-13.1) SEC INR (0.9-1.1) Sodium 138 (135-145) mmol/L Potassium 3.9 (3.3-5.1) mmol/L Chloride 108 (96-108) mmol/L Carbon Dioxide 23 (22-29) mmol/L Anion Gap 11 L (12-20) BUN 33 H (9-16) mg/dL Creatinine 1.55 H (0.5-1.4) mg/dL Estim Creat Clear Calc 29.0 Estimated GFR 33 POC Glucose 51 L* (60-115) mg/dL Random Glucose 166 H (60-115) mg/dL Calcium 8.2 L (8.4-10.2) mg/dL Total Bilirubin 1.4 H (0.0-1.0) mg/dL AST 17 (5-31) U/L ALT 6 (0-31) U/L Alkaline Phosphatase 100 D (39-117) U/L Total Protein 4.3 L (6.5-8.0) g/dL Albumin 2.8 L (3.5-5.0) g/dL 10/12/22 10/12/22 Range/Units 07:48 08:25 WBC (4.8-10.8) X10*3/uL RBC (4.20-5.50) X10*6/uL Hgb (12.0-16.0) g/dl Hct (37.0-47.0) % MCV (80.0-98.0) fL MCH (27.0-33.0) pg MCHC (31.0-35.0) g/dl RDW (11.0-16.0) % Plt Count (160-400) X10*3/uL MPV (9.4-12.3) fL Immature Gran % (Auto) (0.0-0.4) % Neut % (Auto) (45-73) % Lymph % (Auto) (20-40) % [place] % (Auto) (2-11) % Eos % (Auto) (0-4) % Baso % (Auto) (0-2) % Lymph # (Auto) (1.2-4.9) X10*3/uL [place] # (Auto) (0.1-1.2) X10*3/uL Eos # (Auto) (0.0-0.4) X10*3/uL Baso # (Auto) (0.0-0.2) X10*3/uL Abs Immat Gran (auto) (0.00-0.03) X10*3/uL Absolute Neuts (auto) (2.0-8.3) x10*3/uL Absolute Nucleated RBC (0.0-0.012) X10*3/uL Nucleated RBC % (auto) (0.0-0.2) /100WBC PT 13.7 H (10.0-13.1) SEC INR 1.2 H (0.9-1.1) Sodium (135-145) mmol/L Potassium (3.3-5.1) mmol/L Chloride (96-108) mmol/L Carbon Dioxide (22-29) mmol/L Anion Gap (12-20) BUN (9-16) mg/dL Creatinine (0.5-1.4) mg/dL Estim Creat Clear Calc Estimated GFR POC Glucose 84 (60-115) mg/dL Random Glucose (60-115) mg/dL Calcium (8.4-10.2) mg/dL Total Bilirubin (0.0-1.0) mg/dL AST (5-31) U/L ALT (0-31) U/L Alkaline Phosphatase (39-117) U/L Total Protein (6.5-8.0) g/dL Albumin (3.5-5.0) g/dL Independent Interpretation I performed an independent interpretation of an: EKG Interpretation: Normal sinus rhythm, HR-96, no STEMI, OK/QRS/QTC is within normal limits. External Record Review External record reviewed: Inpatient record, Outpatient record and Prior outpatient labs Critical Care Time Critical Care Time Critical Care Time: Yes Total Critical Care Time: 60 Attestation: I personally attest to this time spent taking care of the patient. Discharge Plan Discharge Clinical Impression: Pancreatic cancer, Nausea and vomiting Patient Disposition: Xfer SNF Instructions: Pancreatic Cancer (DC), Acute Nausea and Vomiting (ED) Additional Instructions: 1. Resume all home medications as prescribed. 2. Plan is for placement on hospice care today. 3. Please administer Zofran as directed for nausea and vomiting. Prescriptions: No Action atenolol 25 mg tablet 0.5 tab PO DAILY prochlorperazine maleate [Compazine] 10 mg Tablet 10 mg PO Q8H PRN (Reason: Nausea And Vomiting) Qty: 30 4RF potassium chloride 10 mEq tablet extended release 2 tab PO DAILY lorazepam 0.5 mg tablet 0.5 mg PO BEDTIME PRN (Reason: Anxiety) levothyroxine 50 mcg tablet 1 tab PO DAILY@0600 metformin 500 mg tablet extended release 24 hr 1,000 mg PO BID magnesium oxide 400 mg magnesium Tablet 400 mg PO DAILY multivitamin Tablet 1 tab PO DAILY acetaminophen-codeine 300-30 mg tablet 1 tab PO Q8H PRN (Reason: Pain) pantoprazole 40 mg tablet,delayed release (DR/EC) 1 tab PO DAILY@0630 latanoprost 0.005 % Drops 1 drp OPHTHALMIC (EYE) QPM simvastatin 40 mg Tablet 40 mg PO BEDTIME dexamethasone 4 mg Tablet See Rx Instructions .ROUTE .COMPLEX Rx Instructions: 1 tablet twice a day for 2 days post chemo alum-mag hydroxide-simeth [Laisha-Lanta] 400-400-40 mg/5 mL Suspension 5 ml PO Q6H PRN (Reason: Indigestion) fluticasone propionate 50 mcg/actuation [place],Suspension 1 spray INTRANASAL DAILY Rx Instructions: administer into each nostril melatonin 3 mg Tablet 3 mg PO BEDTIME PRN (Reason: Sleep) estradiol 0.5 mg Tablet 0.5 mg PO DAILY Rx Instructions: off 5 days; repeat cycle loperamide 2 mg Capsule 2 mg PO Q6H PRN (Reason: Diarrhea) Qty: 0 0RF ondansetron HCl 4 mg tablet 1 tab PO Q8H PRN (Reason: nausea) oxycodone 5 mg tablet 1 tab PO Q6H PRN (Reason: Moderate Pain (Scale Score 5-6)) Referrals: Flores Burns MD [Primary Care Provider] -
[2022-10-12 08:20] LABS: Alanine Aminotransferase 6 U/L (0-31); Albumin Level 2.8 g/dL (3.5-5.0); Alkaline Phosphatase 100 U/L (39-117); Anion Gap 11 (12-20); Aspartate Amino Transferase 17 U/L (5-31); Bilirubin Total 1.4 mg/dL (0.0-1.0); Blood Urea Nitrogen 33 mg/dL (9-16); Calcium 8.2 mg/dL (8.4-10.2); Carbon Dioxide 23 mmol/L (22-29); Chloride 108 mmol/L (96-108); Estimated Glomerular Filt Rate 33; Glucose Random 166 mg/dL (60-115); Potassium 3.9 mmol/L (3.3-5.1); Sodium 138 mmol/L (135-145); Total Protein 4.3 g/dL (6.5-8.0)
[2022-10-12 08:29] LABS: Glucose, Whole Blood 84 mg/dL (60-115)
== END 2022-10-12 10:48 | disposition skilled nursing facility (03) ==
PROVIDERS: Emergency Provider Student in an Organized Health Care Education/Training Program; PCP Internal Medicine
DX: C25.9 Malignant neoplasm of pancreas, unspecified (principal); R11.2 Nausea with vomiting, unspecified; R07.89 Other chest pain; Z87.891 Personal history of nicotine dependence; Z79.899 Other long term (current) drug therapy
CPT/HCPCS: 36415; 80053; 82947; 85025; 85610; 93005; 96361; 96374; 96375; 99284; J1642; J2405